=== PATIENT | female | born 1950 | race Caucasian/White ===

== ENCOUNTER → 2020-05-03 11:44 | Outpatient (BNVA) | payer OTHER, SELFPAY | PROVIDERS: PCP Family Medicine; Referring Provider Family Medicine; Visit Provider Nurse Practitioner | DX: K59.04 Chronic idiopathic constipation (principal); K21.9 Gastro-esophageal reflux disease without esophagitis; K75.81 Nonalcoholic steatohepatitis (NASH) | CPT/HCPCS: 99213 ==

== ENCOUNTER 2020-05-11 08:25 | Outpatient (REF) | payer OTHER, SELFPAY ==
--- NOTE | 2020-05-11 09:09 | US_ITS ---
EXAMINATION: US ABDOMEN LIMITED CLINICAL INFORMATION: ALMENDAREZ. COMPARISON: Abdominal ultrasound dated 10/12/2019 and 12/24/2018 TECHNIQUE: Real-time imaging of the right upper quadrant abdominal viscera. FINDINGS: PANCREAS: Normal. LIVER: The liver is normal size, shape and contour. There is mild increased hepatic echogenicity but no focal lesion seen. No intrahepatic ductal dilatation seen. GALLBLADDER: The gallbladder is physiologically distended without evidence of stones, sludge, polyps, wall thickening, or pericholecystic fluid. There is an echogenic area along the anterior gallbladder wall with dirty shadowing, question cholesterolosis. The gallbladder wall measures 0.2 cm thick. COMMON BILE DUCT: Normal in caliber measuring 0.6 cm in diameter. RIGHT KIDNEY: Normal. No hydronephrosis. No renal calculi or focal parenchymal lesions. The kidney measures 11.5 cm in maximum dimension. FREE FLUID: None. IMPRESSION: Mildly echogenic liver without focal lesion. Echogenic dirty shadowing along the anterior gallbladder wall suggestive of cholesterolosis.
[2020-05-11 11:08] LABS: Alanine Aminotransferase 27 U/L (0-31); Albumin Level 4.4 g/dL (3.5-5.0); Alkaline Phosphatase 86 U/L (39-117); Aspartate Amino Transferase 21 U/L (5-31); Bilirubin Direct 0.2 mg/dL (0.0-0.5); Bilirubin Total 0.3 mg/dL (0.0-1.0); Total Protein 7.3 g/dL (6.5-8.0)
[2020-05-13 12:11] LABS: Alpha Fetoprotein 1.5 ng/mL
== END 2020-05-11 08:26 | disposition home or self-care (01) ==
LOC: HO.US 08:25
PROVIDERS: PCP Family Medicine; Visit Provider Nurse Practitioner
DX: K75.81 Nonalcoholic steatohepatitis (NASH) (principal)
CPT/HCPCS: 76705; 80076; 82105

== ENCOUNTER → 2020-07-13 10:01 | Outpatient (BNVA) | payer OTHER, SELFPAY | PROVIDERS: Visit Provider Urology | DX: N39.0 Urinary tract infection, site not specified (principal); R32 Unspecified urinary incontinence | CPT/HCPCS: 51798; 81002; 99212 ==

== ENCOUNTER 2020-08-03 10:51 | Outpatient (REF) | payer OTHER, SELFPAY ==
--- NOTE | 2020-08-03 | MM_ITS ---
EXAMINATION: MM SCREENING DIGITAL BREAST TOMOSYNTHESIS, BILATERAL CLINICAL INFORMATION: Screening. Asymptomatic. The lifetime risk of breast cancer based on the Tyrer-Cuzick Model is 5%. COMPARISON: Mammography: 05/30/2016, 03/15/2015, 11/23/2013 TECHNIQUE: Digital breast tomosynthesis is performed in both the craniocaudal and mediolateral oblique views along with computer-aided detection (CAD). Synthesized 2D images are generated from the tomosynthesis. FINDINGS: The breasts are almost entirely fatty (ACR BI-RADS breast composition Category a). Background stromal markings are stable. There are no significant masses, abnormal calcifications, or other abnormalities. There is an incidental node again seen posterior 9:00 right breast. No significant changes. MM/MM tomosynthesis screening BI IMPRESSION: No mammographic evidence of malignancy. ASSESSMENT: BI-RADS 2: Benign RECOMMENDATION: Routine annual mammography screening. This patient's information was entered into a reminder system with a target due date for their next mammogram.
== END 2020-08-03 10:52 | disposition home or self-care (01) ==
LOC: HO.MAMMO 10:51
PROVIDERS: PCP Family Medicine; Visit Provider Family Medicine
DX: Z12.31 Encounter for screening mammogram for malignant neoplasm of breast (principal)
CPT/HCPCS: 77063; 77067

== ENCOUNTER → 2020-10-04 09:35 | Outpatient (BNVA) | payer OTHER, SELFPAY | PROVIDERS: PCP Family Medicine; Visit Provider Nurse Practitioner | DX: K21.9 Gastro-esophageal reflux disease without esophagitis (principal) | CPT/HCPCS: Q3014 ==

== ENCOUNTER → 2020-11-01 08:59 | Outpatient (BNVA) | payer OTHER, SELFPAY | PROVIDERS: PCP Family Medicine; Visit Provider Nurse Practitioner Family | DX: Z13.89 Encounter for screening for other disorder (principal) | CPT/HCPCS: Q3014 ==

== ENCOUNTER 2021-02-16 17:45 | Emergency (ER) | payer OTHER, SELFPAY ==
[2021-02-16 17:56] VITALS: BP 139/67; PULSE 77; RESP 18; TEMP 36.5; O2SAT 97; BMI 29.2
--- NOTE | 2021-02-16 18:24 | ED.WOUNDLAC ---
HPI - Wound/Laceration General Chief Complaint: Wound/Laceration Stated Complaint: lac Time Seen by Provider: 02/16/21 17:57 Source: patient Mode of arrival: ambulatory Limitations: no limitations History of Present Illness HPI narrative: 70 yo female here with laceration to right index finger after cutting herself accidentally with a knife. tetanus unknown Related Data Home Medications Medication Instructions Recorded Confirmed alcohol swabs pad TOPICAL 07/13/20 11/01/20 amlodipine 10 mg tablet 10 mg PO QAM 07/13/20 11/01/20 aspirin 81 mg tablet,delayed 81 mg PO QAM 07/13/20 11/01/20 release blood sugar diagnostic #10 ea 07/13/20 11/01/20 cholecalciferol (vitamin D3) 25 25 mcg PO QAM 07/13/20 11/01/20 mcg (1,000 unit) tablet ezetimibe 10 mg tablet 10 mg PO BEDTIME 07/13/20 11/01/20 insulin glargine 100 unit/mL (3 16 - 18 unit SUBCUT BEDTIME 07/13/20 11/01/20 mL) subcutaneous pen lancets 33 gauge #100 ea 07/13/20 11/01/20 loratadine 10 mg tablet 10 mg PO DAILY PRN 07/13/20 11/01/20 losartan 50 mg tablet 50 mg PO DAILY 07/13/20 11/01/20 metformin 500 mg tablet,extended 500 mg PO BID 07/13/20 11/01/20 release 24 hr montelukast 10 mg tablet 10 mg PO BEDTIME 07/13/20 11/01/20 pen needle, diabetic 31 gauge x #1200 ea 07/13/20 11/01/2012/04 pentosan polysulfate sodium 100 mg 200 mg PO 07/13/20 11/01/20 capsule rosuvastatin 40 mg tablet 40 mg PO DAILY 07/13/20 11/01/20 trazodone 50 mg tablet 50 mg PO BEDTIME 07/13/20 11/01/20 COVID-19 vacc,mRNA(Moderna)-PF 100 0.5 ml IM Q4W 11/01/20 11/01/20 mcg/0.5 mL IM susp(EUA) (Moderna COVID-19 Vaccine (PF)) Previous Rx's Medication Instructions Recorded nitrofurantoin macrocrystal 100 mg 100 mg PO BEDTIME #30 cap 07/13/20 capsule (Macrodantin) pentosan polysulfate sodium 100 mg 200 mg PO BID 90 Days #360 cap 08/23/20 capsule (Elmiron) famotidine 10 mg tablet (Acid 10 mg PO BID #60 ea 10/04/20 Agri Business Agent (famotidine)) simethicone 180 mg capsule (Gas 180 mg PO .qid. 30 Days #120 cap 10/04/20 Relief (simethicone)) Allergies Allergy/AdvReac Type Severity Reaction Status Date / Time adhesive tape [ADHESIVE TAPE] Allergy Intermediate RASH-LOCALI Verified 07/13/20 10:25 ZED Review of Systems Review of Systems: Yes all other systems are reviewed and are negative Constitutional: Constitutional: Reports no additional constitutional complaints, Denies body ache(s), Denies chills, Denies fever(s), Denies headache(s) and Denies weakness Eyes: Eyes: Reports no additional eye complaints and Denies change in vision ENT: Reports system reviewed and no additional complaints, except as documented, Denies dizziness, Denies headache(s), Denies nasal congestion, Denies nasal discharge and Denies neck pain Cardiovascular: Cardiovascular: Reports no additional cardiovascular complaints, Denies chest pain, Denies leg edema and Denies dyspnea Respiratory: Respiratory: Reports no additional respiratory complaints, Denies cough and Denies dyspnea Gastrointestinal: Gastrointestinal: Reports no additional gastrointestinal complaints, Denies abdominal pain, Denies diarrhea, Denies nausea and Denies vomiting Genitourinary: Genitourinary: Reports no additional female genitourinary complaints and Denies urinary incontinence Musculoskeletal: Musculoskeletal: Reports no additional musculoskeletal complaints, Denies back pain, Denies arthralgias, Denies joint swelling, Denies neck pain, Denies numbness and Denies tingling Integumentary/Breasts: Skin/Breast: Reports system reviewed and no additional complaints, except as docu and Denies rash Neurologic: Reports system reviewed and no additional complaints, except as documented, Denies Abnormal speech present, Denies dizziness, Denies headache(s), Denies numbness, Denies tingling and Denies weakness PMFSH Past Medical History Attestation statement: The following information was validated with the patient. Source: old records reviewed and nursing notes reviewed Medical History Recurrent UTI (urinary tract infection) DILSHAD (stress urinary incontinence, female) Surgical History H/O colonoscopy H/O esophagogastroduodenoscopy History of bladder suspension procedure History of hysterectomy History of tubal ligation S/P CABG x 3 Family History Family History Father Alcohol abuse Cirrhosis Mother Cervical cancer Paternal Grandfather Stomach cancer Social History Social History Household Members: Children Alcohol intake: never Current occupational status: retired Physical Exam Vital Signs: Vital Signs: Last Vital Signs Temp 97.7 F 02/16/21 17:56 Pulse 77 02/16/21 17:56 Resp 18 02/16/21 17:56 BP 139/67 02/16/21 17:56 Pulse Ox 97 02/16/21 17:56 Body Mass Index 29.2 Const: General: cooperative, healthy appearing, comfortable and no acute distress Orientation/consciousness: patient oriented x3 Limitations: no limitations HENMT: Head: Yes normal to inspection Ears: hearing grossly normal bilaterally General nose exam: Normal external nose present Face and sinus: Yes normal facial exam Mouth: Normal oral and palatal mucosa present Throat: Yes posterior oropharynx normal Eyes: General: appearance normal, both eyes and all related structures Pupils: Equal, round and reactive pupils present Neck: Neck: Yes normal visual inspection Chest: Chest palpation & inspection: normal inspection of the chest Resp: Effort & Inspection: normal respiratory effort Auscultation: clear to auscultation bilaterally Cardio: Rate: regular rate Rhythm: regular rhythm Peripheral pulses: Peripheral pulses 2+ throughout GI: Inspection: Yes normal to inspection Palpation (GI): Soft to palpation and nontender Auscultation: normal bowel sounds Back/Spine/Pelvis: Thoracic/Lumbar Spine: thoracic and lumbar spine normal to inspection Skin: General skin exam: no rashes or lesions noted Neuro: General: patient oriented x3, no focal motor deficits and normal sensation to monofilament Cranial nerves: Yes Equal, round and reactive pupils present Cognition (Neuro): normal cognition Speech: No Abnormal speech present Gait exam (Neuro): Normal gait present Motor exam (neuro): 5/5 motor strength present throughout Extrem: Other: 1cm laceration at the mid right index finger over the medial aspect, slowly bleeding. FROM General: Yes normal to inspection Course Course Course Narrative: Laceration to right index finger. See procedure note. Procedures Laceration Laceration 1: Site: hand (right index finger ) Side (If applicable): right Size (cm): 1 Description: linear Depth: simple, single layer Local Anesthetic: lidocaine 2% Pre-repair: wound explored and irrigated extensively Skin layer closed with: vicryl Size (cm): 5-0 Number of sutures: 3 Technique: simple, interrupted Discharge Plan Discharge Clinical Impression: Laceration Patient Disposition: Home, Self-Care Instructions: Finger Laceration (ED) Additional Instructions: Keep covered for 24 hrs then wash area with soap and water daily and apply topical antibiotic ointment sutures out in 7 days Prescriptions: No Action Elmiron 100 mg capsule 200 mg PO BID 90 Days Qty: 360 RF: 2 Moderna COVID-19 Vaccine (EUA) 100 mcg/0.5 mL suspension 0.5 ml IM Q4W RF: 0 cholecalciferol (vitamin D3) 25 mcg (1,000 unit) tablet 25 mcg PO QAM RF: 0 rosuvastatin 40 mg tablet 40 mg PO DAILY RF: 0 (DME) pen needle, diabetic 31 gauge x 5/16 needle See Rx Instructions ea .ROUTE .MEDSUPPLY Qty: 1200 RF: 0 metformin 500 mg tablet extended release 24 hr 500 mg PO BID RF: 0 alcohol swabs Pads, Medicated topical RF: 0 montelukast 10 mg tablet 10 mg PO BEDTIME RF: 0 aspirin 81 mg tablet,delayed release (DR/EC) 81 mg PO QAM RF: 0 trazodone 50 mg tablet 50 mg PO BEDTIME RF: 0 Elmiron 100 mg capsule 200 mg PO RF: 0 losartan 50 mg tablet 50 mg PO DAILY RF: 0 (DME) lancets 33 gauge misc See Rx Instructions ea Not Applicable TID Qty: 100 RF: 0 ezetimibe 10 mg tablet 10 mg PO BEDTIME RF: 0 loratadine 10 mg tablet 10 mg PO DAILY PRNRF: 0 amlodipine 10 mg tablet 10 mg PO QAM RF: 0 (DME) OneTouch Ultra Blue Test Strip Strip See Rx Instructions ea Not Applicable TID Qty: 10 RF: 0 Lantus Solostar U-100 Insulin 100 unit/mL (3 mL) insulin pen 16 - 18 unit subcut BEDTIME RF: 0 nitrofurantoin macrocrystal [Macrodantin] 100 mg capsule 100 mg PO BEDTIME Qty: 30 RF: 6 famotidine [Acid Agri Business Agent (famotidine)] 10 mg tablet 10 mg PO BID Qty: 60 RF: 6 simethicone [Gas Relief (simethicone)] 180 mg capsule 180 mg PO .qid. 30 Days Qty: 120 RF: 6 Referrals: Kera Maria MD [Primary Care Provider] - 2 days
[2021-02-16] MEDS: Lidocaine HCl 2 % MPF 5 ML VIAL SUBCUT (18:49)
[2021-02-16] MEDS: Diphth,Pertus(ACell),Tet Adult 0.5 ML SYRINGE IM (18:50)
== END 2021-02-16 19:05 | disposition home or self-care (01) ==
LOC: HO.ED 18:41
PROVIDERS: Emergency Provider Emergency Medicine Emergency Medical Services; PCP Family Medicine
DX: S61.210A Laceration without foreign body of right index finger without damage to nail, initial encounter (principal); M79.644 Pain in right finger(s); I25.10 Atherosclerotic heart disease of native coronary artery without angina pectoris; W26.0XXA Contact with knife, initial encounter; Y93.9 Activity, unspecified; Y92.009 Unspecified place in unspecified non-institutional (private) residence as the place of occurrence of the external cause; Y99.9 Unspecified external cause status; Z79.82 Long term (current) use of aspirin; Z79.899 Other long term (current) drug therapy
CPT/HCPCS: 12001; 90471; 90715; 96372; 99283; 99284

== ENCOUNTER 2021-03-13 10:47 | Outpatient (REF) | payer OTHER, SELFPAY ==
--- NOTE | ~2021-03-13 | XR_ITS ---
EXAMINATION: XR HAND, RIGHT CLINICAL INFORMATION: Pain right fingers. Stiffness right hand. COMPARISON: None TECHNIQUE: PA, lateral, and oblique views of the right hand. FINDINGS: There is no acute or healing fracture, dislocation, or destructive process. The ulnar variance is neutral. The carpus shows no narrowing or erosive change or definite chondrocalcinosis. The MCP and PIP joints are unremarkable. There are osteoarthritic changes involving the fifth finger DIP joint along with marginal osteophytes. Mild narrowing of the second third fourth finger DIP joints is seen without subchondral sclerosis or significant spurring. XR/XR hand RT min 3V IMPRESSION: 1. Osteoarthritis fifth finger DIP joint. 2. Borderline/mild narrowing DIP joints second, third, fourth finger. 3. No erosive changes.
--- NOTE | ~2021-03-13 | XR_ITS ---
EXAMINATION: XR KNEE, RIGHT CLINICAL INFORMATION: Right knee pain COMPARISON: Radiographs right knee 02/24/2018. TECHNIQUE: 4 views of the right knee are obtained including an AP view with weightbearing. FINDINGS: There is no fracture or dislocation or destructive process. No suprapatellar effusion. Hoffa's fat pad appears normal. There is no significant joint narrowing. No subchondral sclerosis or erosive change. Axial view patella shows no lateralization or tilting. There are some surgical clips again noted posterior medial soft tissues just below knee joint. XR/XR knee RT 4V IMPRESSION: No significant joint narrowing. No erosive change or effusion.
[2021-03-13 12:31] LABS: Alanine Aminotransferase 35 U/L (0-31); Albumin Level 4.4 g/dL (3.5-5.0); Alkaline Phosphatase 90 U/L (39-117); Aspartate Amino Transferase 21 U/L (5-31); Bilirubin Direct 0.2 mg/dL (0.0-0.5); Bilirubin Total 0.3 mg/dL (0.0-1.0); Total Protein 7.3 g/dL (6.5-8.0)
[2021-03-15 11:48] LABS: Alpha Fetoprotein 1.3 ng/mL
== END 2021-03-13 10:48 | disposition home or self-care (01) ==
LOC: HO.XRAY 10:47
PROVIDERS: Absent Provider Nurse Practitioner; PCP Family Medicine; Visit Provider Family Medicine
DX: K75.81 Nonalcoholic steatohepatitis (NASH) (principal); M25.561 Pain in right knee; M25.641 Stiffness of right hand, not elsewhere classified; M79.644 Pain in right finger(s)
CPT/HCPCS: 36415; 73130; 73564; 80076; 82105

== ENCOUNTER → 2021-03-14 11:50 | Outpatient (BNVA) | payer OTHER, SELFPAY | PROVIDERS: PCP Family Medicine; Visit Provider Nurse Practitioner Family | DX: G47.33 Obstructive sleep apnea (adult) (pediatric) (principal) | CPT/HCPCS: Q3014 ==

== ENCOUNTER → 2021-04-19 08:47 | Outpatient (BNVA) | payer OTHER, SELFPAY | PROVIDERS: Visit Provider Physician Assistant | DX: M19.041 Primary osteoarthritis, right hand (principal); M17.11 Unilateral primary osteoarthritis, right knee | CPT/HCPCS: 20610; 99202 ==

== ENCOUNTER 2021-04-20 08:15 | Outpatient (REF) | payer OTHER, SELFPAY ==
--- NOTE | ~2021-04-20 | US_ITS ---
EXAMINATION: US ABDOMEN COMPLETE CLINICAL INFORMATION: Nonalcoholic steatohepatitis. COMPARISON: Ultrasound abdomen limited 05/11/2020. Ultrasound abdomen complete 10/12/2019. CT abdomen and pelvis 11/10/2018. TECHNIQUE: Real-time imaging of the abdominal viscera. FINDINGS: PANCREAS: Normal. The visualized pancreatic head and body are normal in appearance. The remainder of the pancreas is obscured from visualization by the overlying bowel gas. AORTA: The visualized proximal, mid and distal segments are normal in caliber. INFERIOR VENA CAVA: Visualized portions are normal. LIVER: There is diffuse increased liver parenchymal echogenicity. No focal hepatic mass is seen. The liver is normal in size and contour. No biliary ductal dilatation. GALLBLADDER: Normal. The gallbladder is physiologically distended without evidence of stones, sludge, polyps, wall thickening or pericholecystic fluid. COMMON BILE DUCT: Normal in caliber measuring 0.5 cm in diameter. RIGHT KIDNEY: Normal. No hydronephrosis. No renal calculi or focal parenchymal lesions. The kidney measures 9.8 cm in maximum dimension. LEFT KIDNEY: Normal. No hydronephrosis. No renal calculi or focal parenchymal lesions. The kidney measures 10.5 cm in maximum dimension. SPLEEN: Normal. The spleen measures 9.7 cm in maximum dimension. FREE FLUID: None. US/US abdomen complete IMPRESSION: 1. There is generalized increase in hepatic echotexture, consistent with fatty infiltration or hepatocellular disease. Please correlate clinically. Provided history of nonalcoholic steatosis hepatitis noted. No focal hepatic mass or intrahepatic biliary dilatation is seen. 2. Otherwise, unremarkable examination, with imaging of the pancreas and mid abdominal aorta technically limited.
== END 2021-04-20 08:16 | disposition home or self-care (01) ==
LOC: HO.US 08:15
PROVIDERS: PCP Family Medicine; Visit Provider Nurse Practitioner
DX: K75.81 Nonalcoholic steatohepatitis (NASH) (principal)
CPT/HCPCS: 76700

== ENCOUNTER → 2021-05-03 11:05 | Outpatient (BNVA) | payer OTHER, SELFPAY | PROVIDERS: PCP Family Medicine ==

== ENCOUNTER → 2021-05-15 10:47 | Outpatient (BNVA) | payer OTHER, SELFPAY | PROVIDERS: PCP Family Medicine | DX: Z13.89 Encounter for screening for other disorder (principal) | CPT/HCPCS: Q3014 ==

== ENCOUNTER → 2021-05-16 08:52 | Outpatient (BNVA) | payer OTHER, SELFPAY | PROVIDERS: PCP Family Medicine; Visit Provider Nurse Practitioner | CPT/HCPCS: Q3014 ==

== ENCOUNTER → 2021-06-06 10:01 | Outpatient (BNVA) | payer OTHER, SELFPAY | PROVIDERS: PCP Family Medicine; Referring Provider Family Medicine; Visit Provider Nurse Practitioner Family | CPT/HCPCS: 99212 ==

== ENCOUNTER 2021-09-22 09:02 | Outpatient (REF) | payer OTHER, SELFPAY ==
--- NOTE | 2021-09-22 | PFT_ITS ---
FLOWS: FEV1 83% of predicted at 1.91 L. FVC 71% of predicted at 2.08 L. FEV1 to FVC ratio of 0.092. No bronchodilator response. LUNG VOLUMES: Total lung capacity 71% of predicted at 3.62 L. Residual volume 60% of predicted at 1.33 L. Slow vital capacity 80% of predicted at 2.29 L. Expiratory reserve volume 71% of predicted at 0.49 L. Diffusion capacity is moderately decreased, diffusion capacity adjust to being mildly decreased after correction for alveolar ventilation. IMPRESSION: Mild restrictive ventilatory defect with no bronchodilator response. Decreased diffusion capacity together with underlying restrictive ventilatory defect suggest underlying pulmonary parenchymal or vascular disease. Clinical correlation is advised. MD MASSIEL Vann/MODL / [id number]
== END 2021-09-22 09:03 | disposition home or self-care (01) ==
LOC: HO.RESP 09:02
PROVIDERS: Visit Provider Family Medicine
DX: G47.33 Obstructive sleep apnea (adult) (pediatric) (principal); R06.2 Wheezing
CPT/HCPCS: 94060; 94727; 94729

== ENCOUNTER → 2021-10-17 13:40 | Outpatient (BNVA) | payer OTHER, SELFPAY | PROVIDERS: PCP Family Medicine; Visit Provider Nurse Practitioner Family | DX: G43.909 Migraine, unspecified, not intractable, without status migrainosus (principal); G47.33 Obstructive sleep apnea (adult) (pediatric) | CPT/HCPCS: 99212 ==

== ENCOUNTER 2021-11-14 09:10 | Outpatient (REF) | payer OTHER, SELFPAY ==
[2021-11-14 10:52] LABS: Alanine Aminotransferase 40 U/L (0-31); Albumin Level 4.2 g/dL (3.5-5.0); Alkaline Phosphatase 80 U/L (39-117); Anion Gap 11 (12-20); Aspartate Amino Transferase 28 U/L (5-31); Bilirubin Total 0.3 mg/dL (0.0-1.0); Blood Urea Nitrogen 11 mg/dL (9-16); Calcium 9.9 mg/dL (8.4-10.2); Carbon Dioxide 27 mmol/L (22-29); Chloride 106 mmol/L (96-108); Estimated Glomerular Filt Rate > 60; Glucose Random 193 mg/dL (60-115); Potassium 4.5 mmol/L (3.3-5.1); Sodium 139 mmol/L (135-145); Total Protein 7.3 g/dL (6.5-8.0)
[2021-11-16 12:47] LABS: Alpha Fetoprotein 1.2 ng/mL
== END 2021-11-14 09:11 | disposition home or self-care (01) ==
LOC: HO.LAB 09:10
PROVIDERS: PCP Family Medicine; Referring Provider Family Medicine; Visit Provider Nurse Practitioner
DX: K75.81 Nonalcoholic steatohepatitis (NASH) (principal); K21.9 Gastro-esophageal reflux disease without esophagitis; Z88.8 Allergy status to other drugs, medicaments and biological substances; Z91.040 Latex allergy status; R14.0 Abdominal distension (gaseous)
CPT/HCPCS: 36415; 80053; 82105; 99212

== ENCOUNTER 2021-12-15 15:58 | Outpatient (REF) | payer OTHER, SELFPAY ==
--- NOTE | ~2021-12-15 | US_ITS ---
EXAMINATION: US ABDOMEN LIMITED CLINICAL INFORMATION: Nonalcoholic steatohepatitis (ALMENDAREZ). COMPARISON: Ultrasound abdomen complete 04/20/2021. Ultrasound abdomen limited 05/11/2020. CT abdomen and pelvis without contrast 11/10/2018. TECHNIQUE: Real-time imaging of the right upper quadrant abdominal viscera. FINDINGS: PANCREAS: Visualized head and body of the pancreas is homogeneous in echotexture. The tail and rest of the body pancreas is not visualized. LIVER: The right hepatic lobe measures 17.2 cm in length and slightly enlarged in size. The liver contour is normal. The liver is mildly echogenic. There is no intrahepatic biliary duct dilatation seen. GALLBLADDER: The gallbladder wall thickness is 0.19 cm. The gallbladder is physiologically distended without evidence of stones, sludge, polyps, wall thickening or pericholecystic fluid. COMMON BILE DUCT: Normal in caliber measuring 0.6 cm in diameter. RIGHT KIDNEY: Normal. No hydronephrosis. No renal calculi or focal parenchymal lesions. The kidney measures 11.4 cm in maximum dimension. FREE FLUID: None. US/US abdomen limited IMPRESSION: Mild right hepatomegaly with mild hepatic steatosis. No focal lesion seen. Visualized portions of the pancreas appears unremarkable.
== END 2021-12-15 15:59 | disposition home or self-care (01) ==
LOC: HO.US 15:58
PROVIDERS: Visit Provider Nurse Practitioner
DX: K75.81 Nonalcoholic steatohepatitis (NASH) (principal)
CPT/HCPCS: 76705

== ENCOUNTER → 2022-02-08 15:07 | Outpatient (BNVA) | payer OTHER, SELFPAY | PROVIDERS: PCP Family Medicine | DX: N39.0 Urinary tract infection, site not specified (principal) | CPT/HCPCS: Q3014 ==

== ENCOUNTER → 2022-07-06 08:58 | Outpatient (REF) | payer OTHER, SELFPAY ==
--- NOTE | ~2022-07-06 | NM_ITS ---
EXERCISE MYOCARDIAL PERFUSION STUDY INDICATION: Coronary disease, assess for ischemia TECHNIQUE: The patient was brought in for an exercise perfusion study on 07/06/2022. Patient performed exercise as per Jeremie protocol and was injected 25 mCi of sestamibi once target heart rate was achieved. Images were obtained using the SPECT gamma camera interlaced with the gating device. Images were obtained in supine position. Resting perfusion study was performed on 07/09/2022. Patient was administered 25 mCi of sestamibi intravenously at rest. Images were then obtained in supine position. Images were processed with the software and compared side to side in short axis, horizontal long axis and vertical long axis views. Total DLP 95mGy-cm. FINDINGS: Raw images were reviewed. The stress perfusion study showed diminished tracer uptake in the distal part of lateral wall. With CT attenuation correction, there is improvement suggestive of soft tissue attenuation artifact. The gated study shows normal LV systolic function with calculated LVEF of 65%. LV cavity is normal in size. The gated study shows normal wall thickening and contraction of segments. Resting study shows no significant perfusion abnormality. Gating at rest reveals normal wall motion with ejection fraction at 69%. The findings are consistent with reversible distal lateral defect likely from soft tissue attenuation artifact. NM/NM pan perf SPECT rest & str IMPRESSION: 1. Myocardial perfusion imaging study shows no clear evidence of any ischemia or infarction. Likely normal perfusion. 2. Gated LVEF is 65% during stress and 69% during rest. 3. Transient ischemic dilatation not present. EKG component of the test reported separately.
--- NOTE | 2022-07-06 09:01 | CA_ITS ---
Acquisition Time: 2022-07-06 09:11:33 Total Exercise Time: 00:05:00 Test Indications: CP Medications: SEE CHART Protocol: BHARGAV Max HR: 144 BPM 96% of Pred: 149 BPM Max BP: 178/042 mmHG Max Work Load: 5.6 METS Exercise stress test with exercise 5 min of Bhargav protocol ( speed reduced to 2.2 MPH, then 2 MPH in stage 2) achieving 95% MPHR, with fatigue and need to stop, without anginal symptoms, with isolated PACs, with normotensive response to exercise, with borderline EKG changes suggesting possible ischemia: slgith downsloping ST inferior, V4-V6. Nuclear images pending. Test reviewed with Dr Workman Referred By: Ronan Romo Overread By: JARRETT GARCIA
== END ==
LOC: HO.CARD 08:58
PROVIDERS: PCP Family Medicine; Visit Provider Internal Medicine Cardiovascular Disease
DX: I25.2 Old myocardial infarction (principal)
CPT/HCPCS: 78452; 93017; A9500; J0280; J2785

== ENCOUNTER → 2022-07-31 11:39 | Outpatient (BNVA) | payer OTHER, SELFPAY | PROVIDERS: PCP Family Medicine; Visit Provider Nurse Practitioner | DX: K75.81 Nonalcoholic steatohepatitis (NASH) (principal); K59.04 Chronic idiopathic constipation; K21.9 Gastro-esophageal reflux disease without esophagitis; R14.0 Abdominal distension (gaseous); D12.6 Benign neoplasm of colon, unspecified; E13.9 Other specified diabetes mellitus without complications | CPT/HCPCS: 99212 ==

== ENCOUNTER 2022-08-06 11:22 | Outpatient (REF) | payer OTHER, SELFPAY ==
--- NOTE | ~2022-08-06 | MM_ITS ---
EXAMINATION: MM SCREENING DIGITAL BREAST TOMOSYNTHESIS, BILATERAL CLINICAL INFORMATION: Screening. Asymptomatic. The lifetime risk of breast cancer based on the Tyrer-Cuzick Model is 2%. COMPARISON: Mammography: 08/03/2020, 05/30/2016, 03/15/2015 TECHNIQUE: Digital breast tomosynthesis is performed in both the craniocaudal and mediolateral oblique views along with computer-aided detection (CAD). Synthesized 2D images are generated from the tomosynthesis. Additional right MLO view is provided. FINDINGS: The breasts are almost entirely fatty (ACR BI-RADS breast composition Category a). There are no significant masses, abnormal calcifications, or other abnormalities. Background stromal markings are similar to prior studies. No developing density or architectural abnormality. Low right axillary node posterior 9:00 position stable. The axilla and skin contours are unremarkable. MM/MM tomosynthesis screening BI IMPRESSION: No mammographic evidence of malignancy. ASSESSMENT: BI-RADS 2: Benign RECOMMENDATION: Routine annual mammography screening. This patient's information was entered into a reminder system with a target due date for their next mammogram.
== END 2022-08-06 11:23 | disposition home or self-care (01) ==
LOC: HO.MAMMO 11:22
PROVIDERS: PCP Family Medicine; Visit Provider Family Medicine
DX: Z12.31 Encounter for screening mammogram for malignant neoplasm of breast (principal)
CPT/HCPCS: 77063; 77067

== ENCOUNTER → 2022-09-17 13:26 | Outpatient (BNVA) | payer OTHER, SELFPAY | PROVIDERS: PCP Family Medicine; Visit Provider Nurse Practitioner Family | DX: N39.0 Urinary tract infection, site not specified (principal); N39.3 Stress incontinence (female) (male); Z79.82 Long term (current) use of aspirin; Z98.890 Other specified postprocedural states; Z79.899 Other long term (current) drug therapy | CPT/HCPCS: 51798; 99212 ==

== ENCOUNTER 2022-10-19 13:20 | Outpatient (REF) | payer OTHER, SELFPAY ==
--- NOTE | ~2022-10-19 | XR_ITS ---
EXAMINATION: XR CHEST CLINICAL INFORMATION: Coronary artery disease COMPARISON: None available. TECHNIQUE: 2 views of the chest were obtained. FINDINGS: The lungs are well-expanded and clear. The heart size and pulmonary vascularity is normal. There is mild spondylosis mid and distal dorsal spine. There are median sternotomy sutures and mediastinal robson from previous intervention. No gross bony abnormality. XR/XR chest 2V IMPRESSION: Unremarkable chest exam.
== END 2022-10-19 13:21 | disposition home or self-care (01) ==
LOC: HO.XRAY 13:20
PROVIDERS: PCP Family Medicine; Visit Provider Hospitalist
DX: J98.4 Other disorders of lung (principal); R06.00 Dyspnea, unspecified
CPT/HCPCS: 71046; 99202

== ENCOUNTER 2022-11-14 14:10 | Outpatient (REF) | payer OTHER, SELFPAY ==
--- NOTE | ~2022-11-14 | US_ITS ---
EXAMINATION: US RETROPERITONEAL COMPLETE (RENAL) CLINICAL INFORMATION: Urinary tract infection, site not specified. COMPARISON: Ultrasound abdomen limited 12/15/2021 and Ultrasound abdomen complete 04/20/2021. CT abdomen and pelvis 11/10/2018. TECHNIQUE: Real-time imaging of the kidneys and bladder. FINDINGS: RIGHT KIDNEY: 9.5 x 4.6 x 5.5 cm (SAG x AP x TRV). The kidney is normal in size, contour, and echogenicity. Renal cortical thickness is normal. No calculi or focal parenchymal lesions. No hydronephrosis. LEFT KIDNEY: 10.3 x 6.0 x 4.7 cm (SAG x AP x TRV). The kidney is normal in size, contour, and echogenicity. Renal cortical thickness is normal. No calculi or focal parenchymal lesions. No hydronephrosis. BLADDER: Well distended and normal. Bilateral ureteral jets are demonstrated. Prevoid bladder volume is 445.7 mL. Postvoid bladder volume is 124.2 mL. US/US retroperitoneal comp IMPRESSION: Normal renal ultrasound. Large 124 mL post void bladder residual.
== END 2022-11-14 14:11 | disposition home or self-care (01) ==
LOC: HO.US 14:10
PROVIDERS: Visit Provider Nurse Practitioner Family
DX: N39.0 Urinary tract infection, site not specified (principal)
CPT/HCPCS: 76770

== ENCOUNTER → 2022-12-10 10:27 | Outpatient (BNVA) | payer OTHER, SELFPAY | PROVIDERS: PCP Family Medicine; Visit Provider Nurse Practitioner Family | DX: N39.0 Urinary tract infection, site not specified (principal) | CPT/HCPCS: 51798; 99212 ==

== ENCOUNTER 2022-12-25 10:52 | Outpatient (REF) | payer OTHER, SELFPAY ==
--- NOTE | 2022-12-25 11:39 | PFT_ITS ---
FLOWS: 1. FEV1 83% of predicted at 1.91 L. 2. FVC 71% of predicted at 2.08 L. 3. FEV1 to FVC ratio of 0.92. 4. No bronchodilator response. LUNG VOLUMES: 1. Total lung capacity 71% of predicated at 3.62 L. 2. Residual volume 60% of predicted at 1.33 L. 3. Slow vital capacity 80% of predicted at 2.29 L. 4. Expiratory reserve volume 71% of predicted at 0.49 L. 5. Diffusion capacity is moderately decreased, diffusion capacity adjusted, being mildly decreased after correction for alveolar ventilation. IMPRESSION: Mild restrictive ventilatory defect with no bronchodilator response. Combination of restrictive ventilatory defect with decreased diffusion capacity, suggests underlying primary parenchymal disease. Clinical correlation is advised. Clint Vaughn MD AP/MODL / [id number]
== END 2022-12-25 10:53 | disposition home or self-care (01) ==
LOC: HO.RESP 10:52
PROVIDERS: PCP Family Medicine; Visit Provider Hospitalist
DX: J98.4 Other disorders of lung (principal)
CPT/HCPCS: 94060; 94727; 94729

== ENCOUNTER → 2023-01-21 13:13 | Outpatient (BNVA) | payer OTHER, SELFPAY | PROVIDERS: PCP Family Medicine; Visit Provider Hospitalist | DX: J98.4 Other disorders of lung (principal) ==

== ENCOUNTER 2023-01-26 10:07 | Outpatient (REF) | payer OTHER, SELFPAY ==
[2023-01-26 10:23] LABS: MANUAL DIFF FLAG NO
[2023-01-26 11:28] LABS: Basophils Percent Auto 0.7 % (0-2); Eosinophils Absolute Auto 0.2 X10*3/uL (0.0-0.4); Hematocrit 36.2 % (37.0-47.0); Imm Gran Abs Auto 0.01 X10*3/uL (0.00-0.03); Imm Gran Pct Auto 0.2 % (0.0-0.4); Lymphocytes Absolute Auto 2.4 X10*3/uL (1.2-4.9); Lymphocytes Percent Auto 38.9 % (20-40); Mean Corpuscular HGB Conc 33.1 g/dl (31.0-35.0); Mean Corpuscular Hemoglobin 28.4 pg (27.0-33.0); Mean Corpuscular Volume 85.8 fL (80.0-98.0); Mean Platelet Volume 10.3 fL (9.4-12.3); Monocytes Absolute Auto 0.5 X10*3/uL (0.1-1.2); Monocytes Percent Auto 7.4 % (2-11); Neutrophils Percent Auto 49.8 % (45-73); Platelet Count 208 X10*3/uL (160-400); Red Blood Count 4.22 X10*6/uL (4.20-5.50); Red Cell Distribution Width 14.3 % (11.0-16.0); White Blood Count 6.1 X10*3/uL (4.8-10.8)
[2023-01-26 11:40] LABS: Estimated Average Glucose 171 mg/dL; Hemoglobin A1c % 7.6 %
[2023-01-26 11:56] LABS: Alanine Aminotransferase 44 U/L (0-31); Albumin Level 4.2 g/dL (3.5-5.0); Alkaline Phosphatase 72 U/L (39-117); Anion Gap 16 (12-20); Aspartate Amino Transferase 29 U/L (5-31); Bilirubin Total 0.6 mg/dL (0.0-1.0); Blood Urea Nitrogen 15 mg/dL (9-16); Calcium 10.1 mg/dL (8.4-10.2); Carbon Dioxide 20 mmol/L (22-29); Chloride 107 mmol/L (96-108); Estimated Glomerular Filt Rate > 60; Glucose Random 147 mg/dL (60-115); Potassium 4.3 mmol/L (3.3-5.1); Sodium 139 mmol/L (135-145); Total Protein 7.5 g/dL (6.5-8.0)
== END 2023-01-26 10:08 | disposition home or self-care (01) ==
LOC: HO.LAB 10:07
PROVIDERS: PCP Family Medicine; Visit Provider Nurse Practitioner
DX: E13.9 Other specified diabetes mellitus without complications (principal); K75.81 Nonalcoholic steatohepatitis (NASH); K21.9 Gastro-esophageal reflux disease without esophagitis
CPT/HCPCS: 36415; 80053; 82105; 83036; 85025

== ENCOUNTER 2023-01-29 10:27 | Outpatient (AMB) | payer OTHER, SELFPAY ==
--- NOTE | 2023-01-29 10:28 | A.OFFVIS_ITS ---
Intake Vital Signs 01/29/23 10:40 Height 5 ft 4 in Weight 165 lb 12.602 oz BMI 28.5 BP 139/65 Blood Pressure Location Lt brachial Position Sitting Pulse 66 Intake Visit Reasons: 6 months follow up Intake Note: Sofía presents in office as a est.patient for a 6months PT CC: pt reports having no concerns pt denies any other GI Issues Client Relations Representative Required: Yes Client Relations Representative Language: Surinamese Accompanied by: Self / Same As Patient Allergies adhesive tape [ADHESIVE TAPE] Allergy (Intermediate, Verified 01/29/23 10:42) RASH-LOCALIZED latex Allergy (Verified 01/29/23 10:42) Rash HPI 6 months follow up HPI Details Assessment & Plan (1) GERD (gastroesophageal reflux disease): ?Code(s): K21.9 - Gastro-esophageal reflux disease without esophagitis ?Plan: Surinamese #[id number], Vivian. She continues to do well on her GI regimen. I advise her we are overdue for labs/US for her ALMENDAREZ and she is agreeable to getting this going today. She has no CIC and is moving her bowels well. No other health concerns to report. ROV 6 mos. (2) ALMENDAREZ (nonalcoholic steatohepatitis): ?Comment: ?LABS: 09/2019 AST/ALT 27/36 with the remainder normal, autoimmune workup is negative, ferritin is normal at 32, ? * ? US ABD 09/2019 ? IMPRESSION: ? Echogenic liver probably representing fatty infiltration. ?Code(s): K75.81 - Nonalcoholic steatohepatitis (ALMENDAREZ) (3) Chronic idiopathic constipation: ?Code(s): K59.04 - Chronic idiopathic constipation (4) Abdominal bloating: ?Code(s): R14.0 - Abdominal distension (gaseous) ? ? ? Orders: Orders Alpha FetoproteinA Today K75.81 - Nonalcoho lic steatohepatiti s (ALMENDAREZ) ? Comprehensive Met. Panel Today K75.81 - Nonalcoho lic steatohepatiti s (ALMENDAREZ) ? US abdomen limited Today K75.81 - Nonalcoho lic steatohepatiti s (ALMENDAREZ) ? LABS: Laboratory Tests 01/26/23 01/26/23 01/26/23 10:20 10:20 10:20 WBC 6.1 Hgb 12.0 Hct 36.2 L MCV 85.8 MCH 28.4 Estimated GFR > 60 Hemoglobin A1c % 7.6 Total Bilirubin 0.6 AST 29 ALT 44 H Alkaline Phosphata se 72 Alpha Fetoprotein 01/26/23 10:20 WBC Hgb Hct MCV MCH Estimated GFR Hemoglobin A1c % Total Bilirubin AST ALT Alkaline Phosphata se Alpha Fetoprotein 1.2 ULTRASOUND OF THE ABDOMEN 12/19/21? FINDINGS: PANCREAS: Visualized head and body of the pancreas is homogeneous in echotexture. The tail and rest of the body pancreas is not visualized. LIVER: The right hepatic lobe measures 17.2 cm in length and slightly enlarged in size. The liver contour is normal. The liver is mildly echogenic. There is no intrahepatic biliary duct dilatation seen. GALLBLADDER: The gallbladder wall thickness is 0.19 cm. The gallbladder is physiologically distended without evidence of stones, sludge, polyps, wall thickening or pericholecystic fluid. COMMON BILE DUCT: Normal in caliber measuring 0.6 cm in diameter. RIGHT KIDNEY: Normal. No hydronephrosis. No renal calculi or focal parenchymal lesions. The kidney measures 11.4 cm in maximum dimension. FREE FLUID: None. US/US abdomen limited IMPRESSION: Mild right hepatomegaly with mild hepatic steatosis. No focal lesion seen. Visualized portions of the pancreas appears unremarkable. ? TODAY'S VISIT Iranian # Janny Dejesus We review her ultrasound and labs and her fatty liver appears to be stable. I continue to educate her that weight control glucose control and avoidance of alcohol on the 3 most important factors to controlling her fatty liver and keeping her liver healthy. She continues on her famotidine 10mg bid and her simethicone. She has been moving her bowels well w/o medication. ROV 6 mos. [facility] Medical History Chronic restrictive lung disease Dyspnea Recurrent UTI (urinary tract infection) DILSHAD (stress urinary incontinence, female) Surgical History H/O colonoscopy H/O esophagogastroduodenoscopy History of bladder suspension procedure History of hysterectomy History of tubal ligation S/P CABG x 3 Family History Father Alcohol abuse Cirrhosis Mother Cervical cancer Paternal Grandfather Stomach cancer Social History Household Members: Children Alcohol intake: never Patient Tobacco Use Status: Never used Tobacco Current occupational status: retired Current occupation: lt handed Review of Systems Const Denies fatigue, Denies fever(s), Denies night sweats, Denies poor appetite and Denies weight loss ENT Reports Normal hearing present, Denies dental pain, Denies dysphagia, Denies hearing loss, Denies mouth pain, Denies odynophagia, Denies throat swelling, Denies tongue swelling and Reports other (Dentition adequate) Card Reports no additional complaints Resp Reports no additional complaints GI Denies abdominal pain, Denies melena, Denies bloating, Denies hematochezia, Reports constipation, Denies GI cramping, Denies dysphagia, Denies excessive flatus, Denies early satiety, Reports heartburn, Denies diarrhea, Denies nausea, Denies odynophagia, Denies vomiting and Denies hematemesis Skin/Breast Denies pruritus, Denies lesions, Denies rash and Denies jaundice Neuro Reports Normal hearing present and Denies Abnormal speech present Endo Denies fatigue Aller/Immun Denies throat swelling and Denies tongue swelling Physical Exam Vital Signs: Last Vital Signs Pulse 66 01/29/23 10:40 BP 139/65 01/29/23 10:40 BMI result Body Mass Index 28.5 Const General: cooperative, no acute distress, well developed and well groomed Nutritional Appearance: average body habitus and well nourished Orientation/consciousness: oriented to person, oriented to place and oriented to time Limitations: language barrier HEENT Head: Yes normocephalic and Yes atraumatic Eyes General: appearance normal, both eyes and all related structures Pupils: Equal, round and reactive pupils present Neck Neck: Yes normal visual inspection and Yes no lymphadenopathy Thyroid: Thyroid normal Resp Effort & Inspection: normal respiratory effort and able to speak in complete sentences Auscultation: clear to auscultation bilaterally Cardio Rate: regular rate Rhythm: regular rhythm Heart sounds: Normal, physiologic split S2 sound present Peripheral pulses: radial pulses present and posterior tibial pulses present GI Inspection: No distended, No Abdominal panniculus present and Yes obesity Palpation (GI): Soft to palpation, nontender, no guarding, not rigid and No hepatosplenomegaly present Percussion: Yes normal to percussion Auscultation: normal bowel sounds Rectal Exam - Female: deferred Skin General skin exam: no rashes or lesions noted, turgor normal, skin not dry, no jaundice, No spider nevi and no striae Rashes: no rashes Nails: normal Neuro General: oriented to person, oriented to place and oriented to time Cranial nerves: Yes Equal, round and reactive pupils present and Yes Normal hearing present Speech: No Abnormal speech present Extrem General: Yes normal to inspection, No clubbing, No cyanosis and No edema Psych Appearance: grossly normal and well kempt Mental Status: mental status grossly normal Speech and movement: Normal speech and movement present Affect: normal affect Attitude: cooperative Thought process: Normal thought process present and not confabulating Thought content: Normal thought content present Insight: Limited insight present (Psych) Judgement: Limited judgement present (Psych) Results Reviewed Results Reviewed: 01/26/23 01/26/23 01/26/23 10:20 10:20 10:20 WBC 6.1 Hgb 12.0 Hct 36.2 L MCV 85.8 MCH 28.4 Estimated GFR > 60 Hemoglobin A1c % 7.6 Total Bilirubin 0.6 AST 29 ALT 44 H Alkaline Phosphatase 72 Alpha Fetoprotein 01/26/23 10:20 WBC Hgb Hct MCV MCH Estimated GFR Hemoglobin A1c % Total Bilirubin AST ALT Alkaline Phosphatase Alpha Fetoprotein 1.2 ULTRASOUND OF THE ABDOMEN 12/19/21? FINDINGS: PANCREAS: Visualized head and body of the pancreas is homogeneous in echotexture. The tail and rest of the body pancreas is not visualized. LIVER: The right hepatic lobe measures 17.2 cm in length and slightly enlarged in size. The liver contour is normal. The liver is mildly echogenic. There is no intrahepatic biliary duct dilatation seen. GALLBLADDER: The gallbladder wall thickness is 0.19 cm. The gallbladder is physiologically distended without evidence of stones, sludge, polyps, wall thickening or pericholecystic fluid. COMMON BILE DUCT: Normal in caliber measuring 0.6 cm in diameter. RIGHT KIDNEY: Normal. No hydronephrosis. No renal calculi or focal parenchymal lesions. The kidney measures 11.4 cm in maximum dimension. FREE FLUID: None. US/US abdomen limited IMPRESSION: Mild right hepatomegaly with mild hepatic steatosis. No focal lesion seen. Visualized portions of the pancreas appears unremarkable. ? Assessment & Plan Assessment & Plan (1) GERD (gastroesophageal reflux disease): Code(s): K21.9 - Gastro-esophageal reflux disease without esophagitis Plan: Iranian # Janny Live We review her ultrasound and labs and her fatty liver appears to be stable. I continue to educate her that weight control glucose control and avoidance of alcohol on the 3 most important factors to controlling her fatty liver and keeping her liver healthy. She continues on her famotidine 10mg bid and her simethicone. She has been moving her bowels well w/o medication. ROV 6 mos (2) ALMENDAREZ (nonalcoholic steatohepatitis): Comment: BASELINE LABS: 09/2019 AST/ALT 27/36 with the remainder normal, autoimmune workup is negative, ferritin is normal at 32 02/03/19. JUAN Screen Negative Anti-Mitochondrial Ab Negative Anti-Smooth Muscle Ab <20 Hep Bs Antigen NEGATIVE Hepatitis C Ab (EIA) NONREACTIVE HIV 1&2 Antigen & Ab NONREACTIVE CURRENT LABS 01/26/23. Hemoglobin A1c % 7.6 Total Bilirubin 0.6 AST 29 ALT 44 H Alkaline Phosphatase 72 Alpha Fetoprotein 1.2 ULTRASOUND OF THE ABDOMEN 12/19/21? FINDINGS: PANCREAS: Visualized head and body of the pancreas is homogeneous in echotexture. The tail and rest of the body pancreas is not visualized. LIVER: The right hepatic lobe measures 17.2 cm in length and slightly enlarged in size. The liver contour is normal. The liver is mildly echogenic. There is no intrahepatic biliary duct dilatation seen. GALLBLADDER: The gallbladder wall thickness is 0.19 cm. The gallbladder is physiologically distended without evidence of stones, sludge, polyps, wall thickening or pericholecystic fluid. COMMON BILE DUCT: Normal in caliber measuring 0.6 cm in diameter. RIGHT KIDNEY: Normal. No hydronephrosis. No renal calculi or focal parenchymal lesions. The kidney measures 11.4 cm in maximum dimension. FREE FLUID: None. US/US abdomen limited IMPRESSION: Mild right hepatomegaly with mild hepatic steatosis. No focal lesion seen. Visualized portions of the pancreas appears unremarkable. ? Code(s): K75.81 - Nonalcoholic steatohepatitis (ALMENDAREZ) (3) Chronic idiopathic constipation: Code(s): K59.04 - Chronic idiopathic constipation (4) Abdominal bloating: Code(s): R14.0 - Abdominal distension (gaseous) Medications: Refilled simethicone 180 mg PO QID 120 caps 6RF R14.0 - Abdominal distension (gaseous) famotidine (Acid House Repairer (famotidine)) 10 mg PO BID 60 ea 6RF K21.9 - Gastro- esophageal reflux disease without esophagitis Coding Level of Care Code Est Pt Level 4 (43861) Diagnoses GERD (gastroesophageal reflux disease) K21.9 ALMENDAREZ (nonalcoholic steatohepatitis) K75.81 Chronic idiopathic constipation K59.04 Abdominal bloating R14.0
[2023-01-29 10:40] VITALS: BP 139/65; PULSE 66; BMI 28.5
== END 2023-01-29 11:02 | disposition home or self-care (01) ==
PROVIDERS: Visit Provider Nurse Practitioner
DX: K21.9 Gastro-esophageal reflux disease without esophagitis (principal); K75.81 Nonalcoholic steatohepatitis (NASH); K59.04 Chronic idiopathic constipation; R14.0 Abdominal distension (gaseous)
CPT/HCPCS: 99214

== ENCOUNTER → 2023-01-29 10:27 | Outpatient (BNVA) | payer OTHER, SELFPAY | PROVIDERS: Visit Provider Nurse Practitioner | DX: K21.9 Gastro-esophageal reflux disease without esophagitis (principal); K75.81 Nonalcoholic steatohepatitis (NASH); K59.04 Chronic idiopathic constipation; R14.0 Abdominal distension (gaseous); Z79.899 Other long term (current) drug therapy | CPT/HCPCS: 99212 ==

== ENCOUNTER 2023-05-13 14:47 | Emergency (ER) | payer OTHER, SELFPAY ==
--- NOTE | ~2023-05-13 | CT_ITS ---
EXAMINATION: CT HEAD WITHOUT CONTRAST CLINICAL INFORMATION: Fall. Headache. COMPARISON: Previous head CT March 2013 TECHNIQUE: Contiguous axial imaging was performed from the skull base to vertex without intravenous administration of contrast. This CT examination was performed using dose optimization techniques as appropriate, variously including the following: *Automated exposure control *Adjustment of mA and/or kV according to patient size (this includes techniques or standardized protocols for targeted exams where dose is matched to indication/reason for exam; i.e. extremities or head) *Use of iterative reconstruction technique DLP: 645 mGy-cm FINDINGS: There is no evidence of an extra-axial collection. There is no evidence of intra-axial or extra-axial hemorrhage. Ventricles and extra-axial CSF spaces are slightly prominent mild generalized atrophy. There is mild nonspecific periventricular white matter disease. No mass, mass effect or infarct is seen. No skull fracture. Inflammatory changes in the right maxillary and ethmoid sinus. CT/CT head/brain wo IV con IMPRESSION: No acute findings. Mild sinus disease.
--- NOTE | ~2023-05-13 | CT_ITS ---
EXAMINATION: CT CERVICAL SPINE WITHOUT CONTRAST CLINICAL INFORMATION: Fall. Pain. COMPARISON: None available. TECHNIQUE: Axial images through the cervical spine without contrast. Sagittal and coronal reconstructions on the technologist's workstation were performed. This CT examination was performed using dose optimization techniques as appropriate, variously including the following: *Automated exposure control. *Adjustment of mA and/or kV according to patient size (this includes techniques or standardized protocols for targeted exams where dose is matched to indication/reason for exam; i.e. extremities or head). *Use of iterative reconstruction technique. DLP: 393 mGy-cm FINDINGS: Bone alignment is normal. No fracture or dislocation. Degenerative spondylosis at C2-C3 and C4-C5 and C5-C6. Mild disc space narrowing at C5-C6. Degenerative changes at the C1 dens articulation. Bilateral multilevel facet arthritis. Prevertebral soft tissues are normal. Visualized lung apices. Bilateral carotid calcification. CT/CT cervical spine wo IV con IMPRESSION: Degenerative changes. No fracture or dislocation. Fleischner guidelines were followed.
--- NOTE | ~2023-05-13 | CT_ITS ---
EXAMINATION: CT PELVIS WITHOUT CONTRAST CLINICAL INFORMATION: Right hip and inguinal pain status post fall COMPARISON: Right hip and pelvis radiographs 05/13/2023 CT abdomen pelvis 11/10/2018 TECHNIQUE: Helical scanning was performed with submillimeter collimation through the pelvis. Sagittal and coronal multiplanar 2-D reconstructions were obtained. This CT examination was performed using dose optimization techniques as appropriate, variously including the following: *Automated exposure control *Adjustment of mA and/or kV according to patient size (this includes techniques or standardized protocols for targeted exams where dose is matched to indication/reason for exam; i.e. extremities or head) *Use of iterative reconstruction technique DLP: 1430 mGy-cm FINDINGS: There is a subtle nondisplaced fracture of the inferior pubic ramus on the right not visible on plain film radiography. No fractures are seen. The remainder of the pelvis appears normal. Ribs are unremarkable. The uterus is absent. The bladder is unremarkable. Some scattered colonic diverticula are seen without diverticulitis. An abnormal pelvic mass is not detected. No free intraperitoneal fluid. No pelvic hematomas. CT/CT pelvis wo IV con IMPRESSION: 1. There is a subtle nondisplaced fracture of the inferior pubic ramus on the right not visible on plain film radiography. No other fractures are seen. 2. Scattered colonic diverticula without diverticulitis. 3. The uterus is absent. 4. No pelvic hematomas are seen.
--- NOTE | ~2023-05-13 | XR_ITS ---
EXAMINATION: XR HIP, RIGHT CLINICAL INFORMATION: Pain after fall COMPARISON: None available. TECHNIQUE: Two views of the right hip. AP view of the pelvis FINDINGS: On the AP view the pelvis, left patient is slightly rotated into a left anterior oblique position. Alignment is normal at the hips, pubic symphysis and sacroiliac joints. No radiographic evidence of acute pelvic bone fracture. Joint space of each hip is maintained. At the right hip, the femoral head is well-positioned within the intact acetabulum. There is mild osteophyte formation at the posteromedial aspect of the femoral head. Surgical clips are seen in the proximal medial right thigh. There are peripheral vascular calcifications. XR/XR hip RT w PEL1V IMPRESSION: * Mild osteoarthritis of the right hip. * No acute fracture or malalignment at the right hip.
[2023-05-13 15:05] VITALS: BP 130/90; BP 135/52; PULSE 75; PULSE 76; RESP 18; TEMP 36.8; O2SAT 97; O2SAT 99; BMI 27.8
--- NOTE | 2023-05-13 15:32 | ED.FALL ---
HPI - Fall General Chief Complaint: Fall Stated Complaint: TRIP/FALL ON CURB, R HIP PAIN PER EMS Time Seen by Provider: 05/13/23 14:53 Source: patient and EMS Mode of arrival: EMS Limitations: no limitations History of Present Illness HPI Narrative: 72-year-old female with history of BART, diabetes, CAD status post CABG, chronic restrictive lung disease, constipation, HTN, ALMENDAREZ who presents to the ER via EMS for evaluation of right hip pain after she tripped over a curb and fell in the [employer] parking lot today. She states she fell onto her right hip and was unable to get up. EMS was called who was able to have her briefly bear weight and pivot. She states she did not hit her head or sustain any other injuries. She reports the pain is in her anterior hip and pelvic area. She has a hard time bending the knee due to pain in the hip. She is not on anti-coagulation. She denies headache or neck pain. She is uncomfortable in the collar, her chin was in the middle of it. MD complaint: fall Onset (ago): minute(s) Fall from: standing Fall witnessed: yes, by bystander Place fall occurred: street Loss of consciousness: none Prolonged down time: no Symptoms prior to fall: none Context: tripped/slipped Location of injury: pelvis Severity: severe Severity scale (1-10): 8 Quality: aching Associated symptoms (after fall): denies Related Data Home Medications Medication Instructions Recorded Confirmed amlodipine 10 mg tablet 10 mg PO QAM 07/13/20 10/17/21 aspirin 81 mg tablet,delayed 81 mg PO QAM 07/13/20 10/17/21 release blood sugar diagnostic #10 ea 07/13/20 10/17/21 cholecalciferol (vitamin D3) 25 25 mcg PO QAM 07/13/20 10/17/21 mcg (1,000 unit) tablet ezetimibe 10 mg tablet 10 mg PO BEDTIME 07/13/20 10/17/21 lancets 33 gauge #100 ea 07/13/20 10/17/21 losartan 50 mg tablet 50 mg PO DAILY 07/13/20 10/17/21 montelukast 10 mg tablet 10 mg PO BEDTIME 07/13/20 10/17/21 rosuvastatin 40 mg tablet 40 mg PO DAILY 07/13/20 10/17/21 trazodone 50 mg tablet 50 mg PO BEDTIME 07/13/20 10/17/21 dulaglutide 0.75 mg/0.5 mL 0.75 mg subcut QWEEK 05/03/21 10/17/21 subcutaneous pen injector (Trulicity) metformin 750 mg tablet,extended 750 mg PO BID 05/03/21 10/17/21 release 24 hr insulin glargine 100 unit/mL (3 16 - 18 unit subcut QPM 01/21/23 mL) subcutaneous pen (Lantus Solostar U-100 Insulin) levocetirizine 5 mg tablet 5 mg PO DAILY 01/21/23 Previous Rx's Medication Instructions Recorded nitrofurantoin macrocrystal 50 mg 50 mg PO BEDTIME 90 days #90 caps 09/17/22 capsule pentosan polysulfate sodium 100 mg 200 mg (2 x 100 mg) PO BID 90 days 10/15/22 capsule (Elmiron) #360 caps famotidine 10 mg tablet (Acid 10 mg PO BID #60 ea 01/29/23 Developer [employer]ver [employer] (famotidine)) simethicone 180 mg capsule 180 mg PO QID #120 caps 01/29/23 magnesium oxide 400 mg (241.3 mg 400 mg PO BEDTIME 30 days #30 tabs 05/06/23 magnesium) tablet riboflavin (vitamin B2) 100 mg 400 mg (4 x 100 mg) PO QAM 30 days 05/06/23 tablet (Vitamin B-2) #120 tabs Allergies Allergy/AdvReac Type Severity Reaction Status Date / Time adhesive tape [ADHESIVE TAPE] Allergy Intermediate RASH-LOCALI Verified 05/13/23 15:08 ZED latex Allergy Rash Verified 05/13/23 15:08 Review of Systems Review of Systems: Yes all other systems are reviewed and are negative PMFSH Past Medical History Medical History Chronic restrictive lung disease Dyspnea Recurrent UTI (urinary tract infection) DILSHAD (stress urinary incontinence, female) Surgical History H/O colonoscopy H/O esophagogastroduodenoscopy History of bladder suspension procedure History of hysterectomy History of tubal ligation S/P CABG x 3 Family History Family History Father Alcohol abuse Cirrhosis Mother Cervical cancer Paternal Grandfather Stomach cancer Social History Social History Household Members: Children Alcohol intake: never Patient Tobacco Use Status: Never used Tobacco Advance Directives: No Current occupational status: retired Current occupation: lt handed Physical Exam Vital Signs: Vital Signs: Last Vital Signs Temp 98.2 F 05/13/23 15:05 Pulse 75 05/13/23 15:05 Resp 18 05/13/23 15:05 BP 135/52 L 05/13/23 15:05 Pulse Ox 97 05/13/23 15:05 O2 Del Method Room Air 05/13/23 15:05 BMI result Body Mass Index 27.8 Appearance: Alert. Oriented X3. No acute distress. Head: normocephalic, atraumatic. Eyes: Pupils equal, round and reactive to light. ENT: Pharynx normal. No tonsillar swelling or exudate. Neck: Normal inspection. Neck supple. No midline tenderness. Soft tissue tenderness and spasm of the upper trapezius on the left side CVS: Normal heart rate and rhythm. Pulses normal. Respiratory: No respiratory distress. Breath sounds normal. Abdomen: Soft and nontender. +BS x4 Skin: Skin warm and dry. Normal skin color. Normal skin turgor. No rashes. Extremities: No lower extremity edema. No joint swelling. Right anterior hip and inguinal area w/ tenderness. able to flex the hip to about 30 degrees passively w/ pain limiting further ROM. normal inspection and palpation of the right thigh, knee, and ankle. Neuro/psych: Oriented X 3. No motor deficit. No sensory deficit. CN II-XII intact. Normal speech and cognition. Medical Decision Making Medical Decision Making MDM Narrative: 72-year-old female with history of BART, diabetes, CAD status post CABG, chronic restrictive lung disease, constipation, HTN, ALMENDAREZ who presents to the ER via EMS for evaluation of right hip pain after she tripped over a curb and fell in the [employer] parking lot today. Denied head strike or LOC, c/o right hip pain. Cervical collar removed due to absence of head strike, no neck pain and benign exam. 17:30 - XR right hip without acute fracture. When attempted to bear weight patient was unable, hyperventilating and in severe pain. Family at the bedside who was at the scene reports the patient in fact did hit the back of her head. She is now reporting a posterior headache. no neck pain Will get CT scans of the head/cervical spine and pelvis to r/o missed fracture on x-ray. Anticipate she will required PT evaluation and case management consult given she cannot ambulate due to pain. Differential Diagnosis Differential Diagnoses: The differential diagnosis associated with the presentation includes right hip fracture, hip contusion, pubic rami fracture, muscle strain, concussion without LOC, ICH/SAH, closed head injury Admission/Observation Consideration of admission/observation: Escalation of care including admission/observation considered unable to bear weight Independent Interpretation I performed an independent interpretation of an: Plain X-Ray Interpretation: xr hip without acute displaced fx, agree w/ radiology read Radiology Impression Discussion of test interpretation with radiology: I have reviewed the radiologist's reading. Radiologist Impression: EXAMINATION: XR HIP, RIGHT CLINICAL INFORMATION: Pain after fall COMPARISON: None available. TECHNIQUE: Two views of the right hip. AP view of the pelvis FINDINGS: On the AP view the pelvis, left patient is slightly rotated into a left anterior oblique position. Alignment is normal at the hips, pubic symphysis and sacroiliac joints. No radiographic evidence of acute pelvic bone fracture. Joint space of each hip is maintained. At the right hip, the femoral head is well-positioned within the intact acetabulum. There is mild osteophyte formation at the posteromedial aspect of the femoral head. Surgical clips are seen in the proximal medial right thigh. There are peripheral vascular calcifications. XR/XR hip RT w PEL1V IMPRESSION: * Mild osteoarthritis of the right hip. * No acute fracture or malalignment at the right hip. Independent Historian Clinical information obtained from an independent historian. History obtained from or confirmed by: Parent and EMS External Record Review External record reviewed: Outpatient record, Prior outpatient labs and Prior outpatient radiology Prescription Management I considered prescription management with: Pain Medication Chronic Conditions Patient?s care impacted by: Diabetes and Hypertension Critical Care Time Critical Care Time Critical Care Time: No Discharge Plan Discharge Clinical Impression: Acute pain of right hip Fall Qualifiers: Encounter type: initial encounter Qualified Code(s): W19.XXXA - Unspecified fall, initial encounter Patient Disposition: Still a Patient Prescriptions: No Action Elmiron 100 mg capsule 200 mg PO BID 90 Days Qty: 360 1RF magnesium oxide 400 mg (241.3 mg magnesium) tablet 400 mg PO BEDTIME 30 Days Qty: 30 6RF Rx Instructions: may hold for loose stools riboflavin (vitamin B2) [Vitamin B-2] 100 mg tablet 400 mg PO QAM 30 Days Qty: 120 6RF Trulicity 0.75 mg/0.5 mL pen injector 0.75 mg subcut QWEEK metformin 750 mg tablet extended release 24 hr 750 mg PO BID cholecalciferol (vitamin D3) 25 mcg (1,000 unit) tablet 25 mcg PO QAM rosuvastatin 40 mg tablet 40 mg PO DAILY montelukast 10 mg tablet 10 mg PO BEDTIME aspirin 81 mg tablet,delayed release (DR/EC) 81 mg PO QAM trazodone 50 mg tablet 50 mg PO BEDTIME losartan 50 mg tablet 50 mg PO DAILY (DME) lancets 33 gauge misc See Rx Instructions Not Applicable TID Qty: 100 Rx Instructions: As directed ezetimibe 10 mg tablet 10 mg PO BEDTIME amlodipine 10 mg tablet 10 mg PO QAM (DME) OneTouch Ultra Blue Test Strip Strip See Rx Instructions Not Applicable TID Qty: 10 Rx Instructions: As directed nitrofurantoin macrocrystal 50 mg capsule 50 mg PO BEDTIME 90 Days Qty: 90 3RF Rx Instructions: must administer with a meal/food simethicone 180 mg capsule 180 mg PO QID Qty: 120 6RF famotidine [Acid Developer [employer] (famotidine)] 10 mg tablet 10 mg PO BID Qty: 60 6RF levocetirizine 5 mg tablet 5 mg PO DAILY insulin glargine [Lantus Solostar U-100 Insulin] 100 unit/mL (3 mL) insulin pen 16 - 18 unit subcut QPM
[2023-05-13 20:17] VITALS: BP 147/62; PULSE 89; RESP 18; TEMP 36.3; O2SAT 97
--- NOTE | 2023-05-13 20:58 | MHC.EDTECH ---
Patient changed over to inpatient bed
[2023-05-13] MEDS: traMADoL HCL 50 MG TABLET PO (21:31)
[2023-05-13 21:33] LABS: MANUAL DIFF FLAG NO
[2023-05-13 21:36] LABS: Basophils Percent Auto 0.5 % (0-2); Eosinophils Percent Auto 0.4 % (0-4); Hematocrit 35.4 % (37.0-47.0); Hemoglobin 11.5 g/dl (12.0-16.0); Imm Gran Abs Auto 0.02 X10*3/uL (0.00-0.03); Imm Gran Pct Auto 0.2 % (0.0-0.4); Lymphocytes Percent Auto 23.8 % (20-40); Mean Corpuscular HGB Conc 32.5 g/dl (31.0-35.0); Mean Corpuscular Hemoglobin 27.8 pg (27.0-33.0); Mean Corpuscular Volume 85.7 fL (80.0-98.0); Mean Platelet Volume 9.9 fL (9.4-12.3); Monocytes Absolute Auto 0.6 X10*3/uL (0.1-1.2); Monocytes Percent Auto 6.7 % (2-11); Neutrophils Absolute Auto 5.8 x10*3/uL (2.0-8.3); Neutrophils Percent Auto 68.4 % (45-73); Platelet Count 221 X10*3/uL (160-400); Red Blood Count 4.13 X10*6/uL (4.20-5.50); Red Cell Distribution Width 14.1 % (11.0-16.0); White Blood Count 8.5 X10*3/uL (4.8-10.8)
[2023-05-13 21:47] LABS: Anion Gap 16 (12-20); Blood Urea Nitrogen 10 mg/dL (9-16); Carbon Dioxide 22 mmol/L (22-29); Chloride 106 mmol/L (96-108); Creatinine Clr Calc Pharmacy 71.1; Estimated Glomerular Filt Rate > 60; Glucose Random 222 mg/dL (60-115); Potassium 4.4 mmol/L (3.3-5.1); Sodium 140 mmol/L (135-145)
[2023-05-14 03:37] VITALS: BP 143/61; PULSE 69; RESP 16; TEMP 37.5; O2SAT 97
[2023-05-14] MEDS: traMADoL HCL 50 MG TABLET PO (05:50)
[2023-05-14 06:10] VITALS: BP 139/62; PULSE 75; RESP 18; O2SAT 96
--- NOTE | 2023-05-14 06:13 | PC.NURSE ---
this RN assumed care of pt at this time. pt resting comfortably in bed, no c/o pain or discomfort, no apparent distress.
[2023-05-14 08:36] VITALS: BP 132/58; PULSE 68; O2SAT 96
[2023-05-14 08:42] VITALS: BP 132/58; PULSE 68; RESP 16; TEMP 36.6; O2SAT 96
[2023-05-14 08:50] LABS: COVID-19 Test Negative (Negative); IDNOW Serial# BCCEAD1C
--- NOTE | 2023-05-14 10:11 | MHC.CM.ED ---
Addendum entered by Prabha Gee 05/14/23 14:08: HCP completed, signed and witnessed. Original given to patient. Copy placed in chart. Addendum entered by Prabha Gee 05/14/23 12:59: [facility] does not have a bed to offer. Referral sent to [facility], [facility], and [facility]. All are able to offer a bed. These options discussed with patient and batter mixer helper. [facility] is patient's 1st choice. [facility] aware and asked to go for ins auth. Original Note: Received case management consult overnight. Patient came to the ER after a fall. Found to have a pubic rami fx. Physical therapy eval completed. Short term rehab is recommended. Met with patient and batter mixer helper in regards to discharge planning. Patient lives with her daughter, uses a cane for mobility and her son is her CHILD SUPPORT AGENT [facility] Shadia. PCP verified. Patient states she has a HCP and will attempt to obtain a copy. Patient received 3 Moderna vaccines. List of facilities contracted with patient's insurance provided to patient. Patient has been to [facility] in the past and is requesting a referral there. Referral made via [facility]. [facility] and patient's PCP's office do not have copies of patient's HCP. Continue to monitor for d/c needs.
--- NOTE | 2023-05-14 13:53 | PHA.MEDREC ---
Pharmacy Consult ? Medication Reconciliation Pharmacy has reviewed the medication reconciliation completed by Lizz. Lantus was missed. Confirmed with patient's son Fredy that patient is still on insulin. Apoorva Gee, PharmD
[2023-05-14 14:00] VITALS: BP 137/62; PULSE 72; RESP 12; TEMP 36.4; O2SAT 96
--- NOTE | 2023-05-14 14:38 | PC.NURSE ---
Pt currently resting on HB, appears in NAD. VSS. Awaiting short term rehab placement. WCTA
[2023-05-14] MEDS: Acetaminophen 325 MG TABLET 975 MG PO (15:46)
[2023-05-14] MEDS: oxyCODONE HCl Immed Release 5 MG TABLET PO (15:46)
--- NOTE | 2023-05-14 15:46 | MHC.CM.ED ---
Insurance auth has been obtained by [facility]. Patient will leave at 530pm. Raji IBARRA booked. [facility] with chart. Patient, Abbey SCHNEIDER and Lilibeth MACIAS aware. Patient's son, Fredy made aware via telephone at [phone]. Continue to monitor for d/c needs.
== END 2023-05-14 16:55 | disposition skilled nursing facility (03) ==
PROVIDERS: Physician Assistant; Physician Assistant Medical; Emergency Provider Emergency Medicine Emergency Medical Services; PCP Family Medicine
DX: S79.911A Unspecified injury of right hip, initial encounter (principal); M25.551 Pain in right hip; I25.10 Atherosclerotic heart disease of native coronary artery without angina pectoris; R26.2 Difficulty in walking, not elsewhere classified; R51.9 Headache, unspecified; M54.2 Cervicalgia; R10.2 Pelvic and perineal pain; W01.10XA Fall on same level from slipping, tripping and stumbling with subsequent striking against unspecified object, initial encounter; Y93.9 Activity, unspecified; Y92.480 Sidewalk as the place of occurrence of the external cause; Y99.9 Unspecified external cause status; Z11.52 Encounter for screening for COVID-19; Z20.822 Contact with and (suspected) exposure to COVID-19; Z79.899 Other long term (current) drug therapy
CPT/HCPCS: 36415; 70450; 72125; 72192; 73502; 80048; 85025; 87635; 97161; 99285

== ENCOUNTER 2023-06-03 13:41 | Outpatient (AMB) | payer OTHER, SELFPAY ==
--- NOTE | 2023-06-03 13:55 | A.OFFVIS_ITS ---
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 Patient reports having a fall landing on her right side injuring her right hip and knee. She presented to [facility] ED where xrays were taken and referred to orthopedics. Currently she has constant pain in her hip and knee. Finds very little to no relief. Tylenol. Patient uses a walker to ambulate. 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 She was seen at ED where x-rays were performed and she was referred to our office. She currently states she has constant pain in her hip and knee. She also c/o pain in her groin region. She finds minimal relief with Tylenol. She uses a walker to ambulate. [facility] Medical History Chronic restrictive lung disease Dyspnea Recurrent UTI (urinary tract infection) DILSHAD (stress urinary incontinence, female) Surgical History H/O esophagogastroduodenoscopy H/O colonoscopy History of bladder suspension procedure S/P CABG x 3 History of tubal ligation History of hysterectomy Family History Father Alcohol abuse Cirrhosis Mother Cervical cancer Paternal Grandfather Stomach cancer Social History Household Members: Children Alcohol intake: never Patient Tobacco Use Status: Never used Tobacco Advance Directives Date on File: 05/14/23 Current occupational status: retired Current occupation: lt handed Review of Systems Const All systems reviewed & are unremarkable except as noted in HPI and below Physical Exam Vital Signs: BMI result Body Mass Index 26.9 Office Procedures Fracture Care Fracture Billing Code: Fracture Billing Code Results Reviewed Results Reviewed: Xrays were obtained in the office today and personally reviewed by me of the right hip show subtle canticle lucency along the inferior pubic rami Assessment & Plan Assessment & Plan (1) Fracture of right inferior pubic ramus: Code(s): S32.591A - Other specified fracture of right pubis, initial encounter for closed fracture Qualifiers: Encounter type: initial encounter Fracture type: closed Qualified Code(s): S32.591A - Other specified fracture of right pubis, initial encounter for closed fracture Orders: Orders XR hip RT w PEL1V Today M25.559 - Pain in unspecified hip Patient Instructions: Scribed for Sinai Ponce PA-C, by Jonathan Lubin health care / medical job titles, on 06/03/2023 at 1:45 PM EST. I, Sinai Ponce PA-C, have personally reviewed and agree with the information entered by the scribe. Coding Level of Care Code New Pt Level 3 (99123) Diagnoses Closed fracture of right inferior pubic ramus, initial encounter S32.591A Encounter type: initial encounter Fracture type: closed CPT Codes Fracture Care - Fracture Billing Code: Fracture Billing Code ([id number])
[2023-06-03 13:56] VITALS: BMI 26.9
== END 2023-06-03 14:26 | disposition home or self-care (01) ==
PROVIDERS: PCP Family Medicine; Visit Provider Physician Assistant
DX: S32.591A Other specified fracture of right pubis, initial encounter for closed fracture (principal)
CPT/HCPCS: 99213

== ENCOUNTER 2023-06-03 13:41 | Outpatient (REF) | payer OTHER, SELFPAY ==
--- NOTE | ~2023-06-03 | XR_ITS ---
EXAMINATION: XR HIP, RIGHT CLINICAL INFORMATION: Pain COMPARISON: None available. TECHNIQUE: Two views of the right hip. FINDINGS: No fracture. Alignment is anatomic. Hip joint space is maintained. Soft tissues are unremarkable. XR/XR hip RT w PEL1V IMPRESSION: Normal right hip.
== END 2023-06-03 13:42 | disposition home or self-care (01) ==
LOC: HO.HOSX 13:41
PROVIDERS: PCP Family Medicine; Visit Provider Physician Assistant
DX: S32.591A Other specified fracture of right pubis, initial encounter for closed fracture (principal)
CPT/HCPCS: 73502; 99212

== ENCOUNTER 2023-06-05 11:34 | Outpatient (AMB) | payer OTHER, SELFPAY ==
--- NOTE | 2023-06-05 11:35 | A.OFFVIS_ITS ---
Intake Intake Visit Reasons: Recurrent UTI- 6m follow up/PVR Intake Note: Patient is present for follow up recurrent uti/ultrasound (imaging 11/14/22) Urology Medications: macrobid /elmiron Blood Thinner: aspirin PVR: 46ml's Computer Science Intern Required: Yes Computer Science Intern Name: Georgette Dye CMI Accompanied by: Son Allergies adhesive tape [ADHESIVE TAPE] Allergy (Intermediate, Verified 06/05/23 12:22) RASH-LOCALIZED latex Allergy (Verified 06/05/23 12:22) Rash Medication List - Last Reconciled 06/05/23 by LAURIE Carrion- amlodipine 10 mg PO QAM aspirin 81 mg PO QAM blood sugar diagnostic As directed cholecalciferol (vitamin D3) 25 mcg PO QAM dulaglutide (Trulicity) 0.75 mg subcut QWEEK ezetimibe 10 mg PO BEDTIME famotidine (Acid Client Server Programmer (famotidine)) 10 mg PO BID insulin glargine (Lantus Solostar U-100 Insulin) 16 units subcut QPM lancets As directed levocetirizine 5 mg PO DAILY losartan 50 mg PO DAILY magnesium oxide 400 mg PO BEDTIME 30 days metformin ER 750 mg PO BID montelukast 10 mg PO BEDTIME oxycodone 5 mg PO Q6H PRN pentosan polysulfate sodium (Elmiron) 200 mg (2 x 100 mg) PO BID 90 days riboflavin (vitamin B2) (Vitamin B-2) 400 mg (4 x 100 mg) PO QAM 30 days rosuvastatin 40 mg PO DAILY simethicone 180 mg PO QID trazodone 50 mg PO BEDTIME HPI HPI Comments History of Present Illness Details Sofía is a pleasant 73 year old Turkmen speaking patient of who was accompanied by her son at today's office visit. She has a PMH of restrictive lung disease, hypertension, and diabetes. She presents to the office today for a follow up recurrent urinary tract infections and interstitial cystitis. She reports to be doing and feeling well. When asked she denies having any lower urinary tract symptoms since her last office visit here approximately 6 months ago. She denies having had any UTI like symptoms since her last office visit. She reports feeling low-dose antibiotic therapy and Elmiron has been working well for her. Discussed affects of Elmiron and attempting to come off urological medications however patient reports she would like to continue as she feels this is the best she has felt with her urinary issues since being on these medications. Discussed alternatives as well as lifestyle modifications to assist with these issues. Previous workup has included a retroperitoneal ultrasound noting bilateral kidneys with no calculi, lesions, and or hydronephrosis she noted. The bladder is well distended and normal. Bilateral ureteral jets are demonstrated. Pre void bladder volume is approximately 450 mL. Postvoid bladder volume is approximately 125 mL. When asked she reports feeling well and offers no concerns or issues at this time. In office urinalysis results reviewed with the patient today. PVR 46mls. Discussed at length importance of managing diabetes for improvement in urinary symptoms as well as overall health and well- being. When asked patient denies any changes to her urinary habits. She denies urinary urgency, urinary frequency, incontinence, dysuria, hematuria, changes to urinary stream, fever, and or chills. She discusses her recent fall at home and is undergoing therapy. She otherwise denies any issues or concerns at this time. [facility] Medical History Dyspnea Chronic restrictive lung disease DILSHAD (stress urinary incontinence, female) Recurrent UTI (urinary tract infection) Surgical History H/O esophagogastroduodenoscopy H/O colonoscopy History of bladder suspension procedure S/P CABG x 3 History of tubal ligation History of hysterectomy Family History Father Alcohol abuse Cirrhosis Mother Cervical cancer Paternal Grandfather Stomach cancer Social History Household Members: Children Alcohol intake: never Patient Tobacco Use Status: Never used Tobacco Advance Directives Date on File: 05/14/23 Current occupational status: retired Current occupation: lt handed Review of Systems Const Reports as per HPI Eyes Reports no additional complaints ENT Reports no additional complaints Card Reports as per HPI Resp Reports as per HPI GI Reports no additional complaints Reports as per HPI Musc Reports as per HPI Neuro Reports no additional complaints Psych Reports no additional complaints Endo Reports as per HPI Physical Exam Const General: cooperative, comfortable, no acute distress, well developed, alert and awake Orientation/consciousness: patient oriented x3 Limitations: no limitations HEENT Head: Yes normal to inspection, Yes normocephalic and Yes atraumatic Ears: hearing grossly normal bilaterally Eyes General: appearance normal, both eyes and all related structures Neck Neck: Yes normal visual inspection and Yes trachea midline Chest Chest palpation & inspection: normal inspection of the chest Resp Effort & Inspection: normal respiratory effort and able to speak in complete sentences Cardio Rate: regular rate GI Inspection: Yes normal to inspection General: Yes no CVA tenderness Back/Spine/Pelvis Back: no CVA tenderness Skin General skin exam: no rashes or lesions noted Neuro General: patient oriented x3 Extrem General: Yes normal to inspection Psych Appearance: grossly normal and well kempt Mental Status: mental status grossly normal Speech and movement: Normal speech and movement present and Clear speech present Affect: normal affect Attitude: cooperative Thought process: Normal thought process present Thought content: Normal thought content present Insight: Fair insight present (Psych) Judgement: Fair judgement present (Psych) Office Procedures Post Void Residual Post Residual Void Post Void Residual (PVR): 46 [id number] Void Residual by ultrasound Assessment & Plan Assessment & Plan (1) Recurrent UTI (urinary tract infection): Code(s): N39.0 - Urinary tract infection, site not specified (2) Interstitial cystitis: Code(s): N30.10 - Interstitial cystitis (chronic) without hematuria Plan In office urinalysis results reviewed with the patient today; as noted above. PVR 46 mL. Discussed at length other treatment options for interstitial cystitis and recurrent urinary tract infections Discussed at length bladder triggers/irritants. Discussed lifestyle modifications to assist with UTI prevention and interstitial cystitis symptoms. Continue Elmiron as discussed and prescribed however will decrease dose. Continue Macrobid as discussed and prescribed. Discussed UTI prevention with D mannose supplement, vitamin-C, increasing fluid intake, behavioral therapy with timed voiding, perineal hygiene and postcoital voiding, and management of constipation with stool softeners and increased fiber intake. Patient denies any bothersome urinary issues or concerns at this time. Patient reports be happy with current voiding parameters. Follow-up in 1 year with PVR; or sooner with any issues, concerns, and or questions. Orders: Orders AMB Post Void Residual by ultrasound Today N39.0 - Urinary tract infection, site not specified Medications: New nitrofurantoin macrocrystal must administer with a meal/food 50 mg PO BEDTIME 90 days 90 caps 3RF N39.0 - Urinary tract infection, site not specified Changed From pentosan polysulfate sodium (Elmiron) 200 mg (2 x 100 mg) PO BID 90 days 360 caps 1RF To pentosan polysulfate sodium (Elmiron) 100 mg PO BID 90 days 180 caps 3RF Patient Instructions: The patient had an opportunity to ask questions regarding the treatment plan. All questions were answered. Physical exam, labs, and imaging were discussed and reviewed in detail. As well as risks, benefits, and discussion of treatment choices. No major barriers to understanding were identified. The patient expressed understanding and agreement with the above treatment plan. The patient was made aware they should contact our office by phone for worsening of their current condition, the appearance of new symptoms, or with any questions or concerns. Compliance is encouraged with any medications and follow up testing that is ordered. It is a privilege to be allowed the opportunity to participate in? your urological care.? Again, if you have any questions or concerns If you have any questions or concerns please do not hesitate to contact me. The office is [phone]. This note is constructed using voice recognition software. While every effort has been made to ensure accuracy enterprise application developer errors may have been included. Yours sincerely, HARIS Carrion Coding Level of Care Code Est Pt Level 4 (57591) Diagnoses Recurrent UTI (urinary tract infection) N39.0 Interstitial cystitis N30.10 CPT Codes Post Residual Void - PVR CPT Code: 10605-Hmoe Void Residual by ultrasound ([id number])
== END 2023-06-05 11:56 | disposition home or self-care (01) ==
PROVIDERS: Visit Provider Nurse Practitioner Family
DX: N39.0 Urinary tract infection, site not specified (principal); N30.10 Interstitial cystitis (chronic) without hematuria
CPT/HCPCS: 99214

== ENCOUNTER → 2023-06-05 11:34 | Outpatient (BNVA) | payer OTHER, SELFPAY | PROVIDERS: Visit Provider Nurse Practitioner Family | DX: N30.10 Interstitial cystitis (chronic) without hematuria (principal); N39.0 Urinary tract infection, site not specified | CPT/HCPCS: 51798; 99212 ==

== ENCOUNTER 2023-06-20 12:38 | Outpatient (REF) | payer OTHER, SELFPAY ==
--- NOTE | ~2023-06-20 | XR_ITS ---
EXAMINATION: XR KNEE, RIGHT CLINICAL INFORMATION: Knee pain after fall in April COMPARISON: None available. TECHNIQUE: Four views of the right knee. FINDINGS: No fracture or dislocation. Very small suprapatellar effusion. No significant joint space narrowings. Surgical clips medial knee. Vascular calcifications. XR/XR knee RT 3V IMPRESSION: No acute bony pathology.
== END 2023-06-20 12:39 | disposition home or self-care (01) ==
LOC: HO.HHCX 12:38
PROVIDERS: Visit Provider Family Medicine
DX: M25.561 Pain in right knee (principal); G89.29 Other chronic pain
CPT/HCPCS: 73562

== ENCOUNTER 2023-06-20 13:00 | Outpatient (REF) | payer OTHER, SELFPAY ==
[2023-06-20 16:33] LABS: Cholesterol 120 mg/dL (<200); HDL Cholesterol 49 mg/dL (>40); LDL Cholesterol Calculated 33 mg/dL (<100); Triglycerides 190 mg/dL (<150)
[2023-06-20 16:34] LABS: Alanine Aminotransferase 27 U/L (0-31); Albumin Level 4.5 g/dL (3.5-5.0); Alkaline Phosphatase 90 U/L (39-117); Anion Gap 11 (12-20); Aspartate Amino Transferase 26 U/L (5-31); Bilirubin Total 0.3 mg/dL (0.0-1.0); Blood Urea Nitrogen 12 mg/dL (9-16); Calcium 10.2 mg/dL (8.4-10.2); Carbon Dioxide 26 mmol/L (22-29); Chloride 105 mmol/L (96-108); Estimated Glomerular Filt Rate > 60; Glucose Random 116 mg/dL (60-115); Potassium 4.1 mmol/L (3.3-5.1); Sodium 138 mmol/L (135-145); Total Protein 8.3 g/dL (6.5-8.0)
[2023-06-20 16:39] LABS: TSH reflex Free T4 2.11 uIU/mL (0.32-4.0)
[2023-06-20 16:52] LABS: Folate 9.4 ng/mL (> or = 4.0); Vitamin B12 372 pg/mL (200-900)
[2023-06-20 17:01] LABS: Reflex LDLD? No
[2023-06-20 17:22] LABS: Microalbum/Creatinine Ratio Ur 90.9 ug/mg cr (<30)
== END 2023-06-20 13:01 | disposition home or self-care (01) ==
LOC: HO.HHCL 13:00
PROVIDERS: Visit Provider Family Medicine
DX: E11.9 Type 2 diabetes mellitus without complications (principal); E78.5 Hyperlipidemia, unspecified; I10 Essential (primary) hypertension; Z79.4 Long term (current) use of insulin
CPT/HCPCS: 36415; 80053; 80061; 82043; 82570; 82607; 82746; 84443

== ENCOUNTER 2023-07-29 08:34 | Outpatient (REF) | payer OTHER, SELFPAY ==
--- NOTE | ~2023-07-29 | XR_ITS ---
EXAMINATION: XR PELVIS CLINICAL INFORMATION: Pain in unspecified hip. COMPARISON: Pelvis and right hip 06/03/2023 and 05/13/2023. TECHNIQUE: AP view of the pelvis. FINDINGS: Degenerative changes in the imaged lower lumbar spine. Bones are diffusely demineralized. Vascular calcifications. Mild degenerative changes in the bilateral hips with joint space narrowing and hypertrophic change. XR/XR pelvis 1-2V IMPRESSION: 1. Mild degenerative changes in bilateral hips. 2. Degenerative changes in the imaged lower lumbar spine. 3. MRI should be considered for further evaluation if there is concern for fracture or other pathology.
== END 2023-07-29 08:35 | disposition home or self-care (01) ==
LOC: HO.HOSX 08:34
PROVIDERS: Visit Provider Physician Assistant
DX: S32.591D Other specified fracture of right pubis, subsequent encounter for fracture with routine healing (principal); M76.891 Other specified enthesopathies of right lower limb, excluding foot
CPT/HCPCS: 72170; 99212

== ENCOUNTER 2023-07-29 12:22 | Outpatient (AMB) | payer OTHER, SELFPAY ==
--- NOTE | 2023-07-29 12:30 | MHC.OFFVIS ---
Intake Intake Visit Reasons: ov-Rt pubic rami fx w xrays Intake Note: Sofía a 73 year old female presents today for a follow up of right pubic rami fx, DOI 05/13/23. Patient reports pain is tolerable, states a lot of discomfort in fracture area. Feels instability therefore uses a walker for support. Allergies adhesive tape [ADHESIVE TAPE] Allergy (Intermediate, Verified 07/29/23 12:33) RASH-LOCALIZED latex Allergy (Verified 07/29/23 12:33) Rash HPI ov-Rt pubic rami fx w xrays HPI Details 73-year-old female who returns to the office today with an powder nipper for a follow-up of right pubic rami fracture, 05/13/23. She states she has discomfort in her fracture area which is aggravated with putting pressure and overuse. She uses a walker as support for long distances and she reports she feels instability if not using the walker since her DOI. She is completed with physical therapy last week. [facility] Medical History Dyspnea Chronic restrictive lung disease DILSHAD (stress urinary incontinence, female) Recurrent UTI (urinary tract infection) Surgical History H/O esophagogastroduodenoscopy H/O colonoscopy History of bladder suspension procedure S/P CABG x 3 History of tubal ligation History of hysterectomy Family History Father Alcohol abuse Cirrhosis Mother Cervical cancer Paternal Grandfather Stomach cancer Social History Household Members: Children Alcohol intake: never Patient Tobacco Use Status: Never used Tobacco Advance Directives Date on File: 05/14/23 Current occupational status: retired Current occupation: lt handed Review of Systems Const All systems reviewed & are unremarkable except as noted in HPI and below Physical Exam Extrem Other: Right hip: Normal to inspection. No pain with ROM of hip. she does have discomfort with hip flexion against resistance. No pain over the greater trochanter. NVI. Results Reviewed Results Reviewed: Xrays were obtained in the office today and personally reviewed by me of the pelvis show show acute fracture Assessment & Plan Assessment & Plan (1) Fracture of right inferior pubic ramus: Code(s): S32.591A - Other specified fracture of right pubis, initial encounter for closed fracture Qualifiers: Encounter type: subsequent encounter Fracture type: closed Fracture healing: with routine healing Qualified Code(s): S32.591D - Other specified fracture of right pubis, subsequent encounter for fracture with routine healing (2) Tendonitis of right hip flexor: Code(s): M76.891 - Other specified enthesopathies of right lower limb, excluding foot Plan It seems as though most of her discomfort is muscular at this time I did refer her to formal outpatient physical therapy to work on gait training and strengthening. If symptoms persist or worsens, patient will contact the office, otherwise follow-up as needed. Orders: Orders PT Evaluation and Treatment Today M76.891 - Other specified enthesopathies of right lower limb, excluding foot, S32.591A - Other specified fracture of right pubis, initial encounter for closed fracture XR pelvis 1-2V Today M25.559 - Pain in unspecified hip Patient Instructions: Scribed for Sinai Ponce PA-C, by Jonathan Lubin medical services manager, on 07/29/2023 at 12:45 PM EST. ISinai PA-C, have personally reviewed and agree with the information entered by the scribe. Coding Level of Care Code Global (80043) Diagnoses Closed fracture of right inferior pubic ramus with routine healing, subsequent encounter S32.591D Encounter type: subsequent encounter Fracture type: closed Fracture healing: with routine healing Tendonitis of right hip flexor M76.891
== END 2023-07-29 13:16 | disposition home or self-care (01) ==
PROVIDERS: PCP Family Medicine; Visit Provider Physician Assistant
DX: S32.591D Other specified fracture of right pubis, subsequent encounter for fracture with routine healing (principal); M76.891 Other specified enthesopathies of right lower limb, excluding foot
CPT/HCPCS: 99213

== ENCOUNTER 2023-09-13 08:47 | Outpatient (REF) | payer OTHER, SELFPAY ==
--- NOTE | ~2023-09-13 | MM_ITS ---
EXAMINATION: BONE DENSITOMETRY CLINICAL INDICATION: Postmenopausal. COMPARISON: This is the patient's baseline examination. TECHNIQUE: Using a [employer] DXA System (software version: 13.1) manufactured by [employer], dual-energy x-ray absorptiometry was performed of the lumbar spine and left hip. The images are of good technical quality. Summary results are attached. FINDINGS: LEFT FEMUR, NECK: BMD 0.774 g/cm2, Z-score -0.3, T-score -1.9, osteopenia. LEFT FEMUR, TOTAL: BMD 0.882 g/cm2, Z-score 0.4, T-score -1.0, normal. AP SPINE L1-L4: BMD 0.914 g/cm2, Z-score -0.8, T-score -2.2, osteopenia. IDENTIFIED RISK FACTORS: Menopause, left oophorectomy, hysterectomy, history of fracture (adult), secondary osteoporosis. HISTORY OF FRACTURE: Pelvis. MEDICATIONS: Vitamin D. MM/XR DEXA axial skeleton IMPRESSION: 1. DIAGNOSIS: Osteopenia based on the lowest T-score value of -2.2 in the lumbar spine applying World Health Organization criteria. 2. 10-YEAR FRACTURE RISK PREDICTION, FRAX: Major osteoporotic fracture (clinical spine, forearm, hip or shoulder) 10.7%. Hip fracture 2.1%. 3. Treatment Recommendations: NOF guidelines recommend consideration for treatment in postmenopausal women and men age 50 and older presenting with the following: -A hip or vertebral (clinical or morphometric) fracture. -T-score less than or equal to -2.5 at the femoral neck or spine after appropriate evaluation to exclude secondary causes. -Low bone mass at the hip or spine and a 10-year fracture probability by FRAX of greater than or equal to 3% for hip fracture or greater than or equal to 20% for major osteoporotic fracture based on the [place] adapted WHO algorithm. 4. Other Recommendations: All treatment decisions require clinical judgment and consideration of individual patient factors, including patient preferences, comorbidities, previous drug use, risk factors not captured in the FRAX model (e.g. frailty, falls, vitamin D deficiency, increased bone turnover, interval significant decline in bone density) and possible under or overestimation of fracture risk by FRAX. Additional medical evaluation for secondary cause of low bone mineral density may be appropriate. FUTURE SCAN RECOMMENDATION: People with diagnosed cases of osteoporosis or at high risk for fracture should have regular bone mineral density tests. For patients eligible for Medicare, routine testing is allowed once every 2 years. The testing frequency can be increased to one year for patients who have rapidly progressing disease, those who are receiving or discontinuing medical therapy to restore bone mass, or have additional risk factors.
== END 2023-09-13 08:48 | disposition home or self-care (01) ==
LOC: HO.MAMMO 08:47
PROVIDERS: PCP Family Medicine; Visit Provider Family Medicine
DX: Z13.820 Encounter for screening for osteoporosis (principal); Z78.0 Asymptomatic menopausal state; S32.591A Other specified fracture of right pubis, initial encounter for closed fracture; W18.30XA Fall on same level, unspecified, initial encounter; Y93.9 Activity, unspecified; Y92.9 Unspecified place or not applicable; Y99.9 Unspecified external cause status; Z90.721 Acquired absence of ovaries, unilateral; Z90.710 Acquired absence of both cervix and uterus; Z53.20 Procedure and treatment not carried out because of patient's decision for unspecified reasons
CPT/HCPCS: 77080

== ENCOUNTER 2023-10-22 12:34 | Outpatient (AMB) | payer OTHER, SELFPAY ==
--- NOTE | 2023-10-22 12:59 | A.OFFVIS_ITS ---
Vital Signs 10/22/23 13:02 Height 5 ft 4 in Weight 160 lb 14.999 oz BMI 27.6 BP 151/67 H Blood Pressure Location Lt brachial Position Sitting Pulse 78 Intake Visit Reasons: Follow up GERD Intake Note: Sofía presents in the office as a follow up for GERD. CC: She states that she is still having the acid reflux. Allergies adhesive tape [ADHESIVE TAPE] Allergy (Intermediate, Verified 10/22/23 13:02) RASH-LOCALIZED latex Allergy (Verified 10/22/23 13:02) Rash HPI HPI Follow up GERD: Details: Assessment & Plan (1) GERD (gastroesophageal reflux disease): Code(s): K21.9 - Gastro-esophageal reflux disease without esophagitis Plan: Japanese # [employer] We review her ultrasound and labs and her fatty liver appears to be stable. I continue to educate her that weight control glucose control and avoidance of alcohol on the 3 most important factors to controlling her fatty liver and keeping her liver healthy. She continues on her famotidine 10mg bid and her simethicone. She has been moving her bowels well w/o medication. ROV 6 mos (2) ALMENDAREZ (nonalcoholic steatohepatitis): Comment: BASELINE LABS: 09/2019 AST/ALT 27/36 with the remainder normal, autoimmune workup is negative, ferritin is normal at 32 02/03/19. JUAN Screen Negative Anti-Mitochondrial Ab Negative Anti-Smooth Muscle Ab <20 Hep Bs Antigen NEGATIVE Hepatitis C Ab (EIA) NONREACTIVE HIV 1&2 Antigen & Ab NONREACTIVE CURRENT LABS 01/26/23. Hemoglobin A1c % 7.6 Total Bilirubin 0.6 AST 29 ALT 44 H Alkaline Phosphatase 72 Alpha Fetoprotein 1.2 ULTRASOUND OF THE ABDOMEN 12/19/21? FINDINGS: PANCREAS: Visualized head and body of the pancreas is homogeneous in echotexture. The tail and rest of the body pancreas is not visualized. LIVER: The right hepatic lobe measures 17.2 cm in length and slightly enlarged in size. The liver contour is normal. The liver is mildly echogenic. There is no intrahepatic biliary duct dilatation seen. GALLBLADDER: The gallbladder wall thickness is 0.19 cm. The gallbladder is physiologically distended without evidence of stones, sludge, polyps, wall thickening or pericholecystic fluid. COMMON BILE DUCT: Normal in caliber measuring 0.6 cm in diameter. RIGHT KIDNEY: Normal. No hydronephrosis. No renal calculi or focal parenchymal lesions. The kidney measures 11.4 cm in maximum dimension. FREE FLUID: None. US/US abdomen limited IMPRESSION: Mild right hepatomegaly with mild hepatic steatosis. No focal lesion seen. Visualized portions of the pancreas appears unremarkable. ? Code(s): K75.81 - Nonalcoholic steatohepatitis (ALMENDAREZ) (3) Chronic idiopathic constipation: Code(s): K59.04 - Chronic idiopathic constipation (4) Abdominal bloating: Code(s): R14.0 - Abdominal distension (gaseous) Medications: Refilled simethicone 180 mg PO QID 120 caps 6RF R14.0 - Abdominal distension (gaseous) famotidine (Acid [employer] (famotidine)) 10 mg PO BID 60 ea 6RF K21.9 - Gastro- esophageal reflux disease without esophagitis ? TODAY'S VISIT She continues to do well with her famotidine and simethicone. Due for labs and US for her ALMENDAREZ. She is due for colonoscopy, we had tried ordering it 2 years ago but no one every called her. She has BART and restrictive lung disease and sees Dr. Schreiber, and she denies cardiac problems. There are no prior problems with anesthesia or sedation. No ID problems. She has a PHX of TA. ROV 6 mos. PFSH Medical History (Updated 11/19/23 @ 17:18 by SONJA Brumfield) Dyspnea Chronic restrictive lung disease DILSHAD (stress urinary incontinence, female) Recurrent UTI (urinary tract infection) Surgical History H/O esophagogastroduodenoscopy H/O colonoscopy History of bladder suspension procedure S/P CABG x 3 History of tubal ligation History of hysterectomy Family History Father Alcohol abuse Cirrhosis Mother Cervical cancer Paternal Grandfather Stomach cancer Social History Household Members: Children Alcohol intake: never Patient Tobacco Use Status: Never used Tobacco Advance Directives Date on File: 05/14/23 Current occupational status: retired Current occupation: lt handed Review of Systems Const Denies fatigue, Denies fever(s), Denies night sweats, Denies poor appetite and Denies weight loss Eyes Details: glasses Reports requires corrective lenses ENT Denies dental pain, Denies dysphagia, Denies hearing loss, Denies mouth pain, Denies odynophagia, Denies throat swelling, Denies tongue swelling and Reports other (Dentition adequate) Card Reports dyspnea on exertion Resp Reports dyspnea on exertion GI Details: Denies abdominal pain, Denies melena, Denies bloating, Denies hematochezia, Denies constipation, Denies GI cramping, Denies dysphagia, Denies excessive flatus, Denies early satiety, Reports heartburn, Denies diarrhea, Denies nausea, Denies odynophagia, Denies vomiting and Denies hematemesis Skin/Breast Denies pruritus, Denies lesions, Denies rash and Denies jaundice Endo Denies fatigue Aller/Immun Denies throat swelling and Denies tongue swelling Physical Exam Vital Signs: Last Vital Signs Pulse 78 10/22/23 13:02 BP 151/67 H 10/22/23 13:02 BMI result Body Mass Index 27.6 Results Reviewed Results Reviewed: Laboratory Tests 06/20/23 13:03 Estimated GFR > 60 Total Bilirubin 0.3 AST 26 ALT 27 Alkaline Phosphatase 90 TSH 2.11 Assessment & Plan Assessment & Plan (1) ALMENDAREZ (nonalcoholic steatohepatitis): Comment: BASELINE LABS: 09/2019 AST/ALT 27/36 with the remainder normal, autoimmune wo rkup is negative, ferritin is normal at 32 02/03/19. JUAN Screen Negative Anti-Mitochondrial Ab Negative Anti-Smooth Muscle Ab <20 Hep Bs Antigen NEGATIVE Hepatitis C Ab (EIA) NONREACTIVE HIV 1&2 Antigen & Ab NONREACTIVE CURRENT LABS 01/26/23. Hemoglobin A1c % 7.6 Total Bilirubin 0.6 AST 29 ALT 44 H Alkaline Phosphatase 72 Alpha Fetoprotein 1.2 ULTRASOUND OF THE ABDOMEN 12/19/21? FINDINGS: PANCREAS: Visualized head and body of the pancreas is homogeneous in echotexture. The tail and rest of the body pancreas is not visualized. LIVER: The right hepatic lobe measures 17.2 cm in length and slightly enlarged in size. The liver contour is normal. The liver is mildly echogenic. There is no intrahepatic biliary duct dilatation seen. GALLBLADDER: The gallbladder wall thickness is 0.19 cm. The gallbladder is physiologically distended without evidence of stones, sludge, polyps, wall thickening or pericholecystic fluid. COMMON BILE DUCT: Normal in caliber measuring 0.6 cm in diameter. RIGHT KIDNEY: Normal. No hydronephrosis. No renal calculi or focal parenchymal lesions. The kidney measures 11.4 cm in maximum dimension. FREE FLUID: None. US/US abdomen limited IMPRESSION: Mild right hepatomegaly with mild hepatic steatosis. No focal lesion seen. Visualized portions of the pancreas appears unremarkable. ? Code(s): K75.81 - Nonalcoholic steatohepatitis (ALMENDAREZ) Category: Medical (2) Tubular adenoma of colon: Comment: Last scoped 2018 repeat in 5 years aeb Code(s): D12.6 - Benign neoplasm of colon, unspecified Category: Medical (3) Abdominal bloating: Code(s): R14.0 - Abdominal distension (gaseous) Category: Medical (4) GERD (gastroesophageal reflux disease): Code(s): K21.9 - Gastro-esophageal reflux disease without esophagitis Category: Medical (5) Obstructive sleep apnea: Comment: AHI 14/hr, REM AHI 43.8/hr, O2 esvin 78% Code(s): G47.33 - Obstructive sleep apnea (adult) (pediatric) Category: Medical (6) Pre-op examination: Code(s): Z01.818 - Encounter for other preprocedural examination Category: Medical Plan She continues to do well with her famotidine and simethicone. Due for labs and US for her ALMENDAREZ. She is due for colonoscopy, we had tried ordering it 2 years ago but no one every called her. She has BART and restrictive lung disease and sees Dr. Schreiber, and she denies cardiac problems. There are no prior problems with anesthesia or sedation. No ID problems. She has a PHX of TA. Orders: Orders Comprehensive Met. Panel 10/22/23 K75.81 - Nonalcoholic steatohepatitis (ALMENDAREZ) Complete Blood Count Auto Diff 10/22/23 K75.81 - Nonalcoholic steatohepatitis (ALMENDAREZ) Colonoscopy - GI Use Only 10/22/23 D12.6 - Benign neoplasm of colon, unspecified US abdomen comp w elastography 10/22/23 K75.81 - Nonalcoholic steatohepatitis (ALMENDAREZ) Medications: New peg 3350-electrolytes 236-22.74-6.74 -5.86 gram (Golytely) until fecal effluent is clear; do not exceed a total volume of 2,000 mL 240 mL PO Q10M 4,000 mL 0RF 1 day Z12.11 - Encounter for screening for malignant neoplasm of colon bisacodyl (Dulcolax (bisacodyl)) 10 mg (2 x 5 mg) PO BEDTIME 4 tabs 0RF 2 days Refilled simethicone 180 mg PO QID 120 caps 6RF R14.0 - Abdominal distension (gaseous) famotidine 10 mg PO BID 60 tabs 6RF K21.9 - Gastro-esophageal reflux disease without esophagitis Coding Level of Care Code Est Pt Level 4 (26029) Diagnoses ALMENDAREZ (nonalcoholic steatohepatitis) K75.81 Tubular adenoma of colon D12.6 Abdominal bloating R14.0 GERD (gastroesophageal reflux disease) K21.9 Obstructive sleep apnea G47.33 Pre-op examination Z01.818
[2023-10-22 13:02] VITALS: BP 151/67; PULSE 78; BMI 27.6
== END 2023-10-22 13:38 | disposition home or self-care (01) ==
PROVIDERS: PCP Family Medicine; Visit Provider Nurse Practitioner
DX: K75.81 Nonalcoholic steatohepatitis (NASH) (principal); D12.6 Benign neoplasm of colon, unspecified; R14.0 Abdominal distension (gaseous); K21.9 Gastro-esophageal reflux disease without esophagitis; G47.33 Obstructive sleep apnea (adult) (pediatric); Z01.818 Encounter for other preprocedural examination
CPT/HCPCS: 99214

== ENCOUNTER → 2023-10-22 12:34 | Outpatient (BNVA) | payer OTHER, SELFPAY | PROVIDERS: PCP Family Medicine; Visit Provider Nurse Practitioner | DX: Z01.818 Encounter for other preprocedural examination (principal); K75.81 Nonalcoholic steatohepatitis (NASH); K21.9 Gastro-esophageal reflux disease without esophagitis; D12.6 Benign neoplasm of colon, unspecified; R14.0 Abdominal distension (gaseous); G47.33 Obstructive sleep apnea (adult) (pediatric) | CPT/HCPCS: 99212 ==

== ENCOUNTER 2023-11-29 09:52 | Outpatient (REF) | payer OTHER, SELFPAY ==
--- NOTE | ~2023-11-29 | MM_ITS ---
EXAMINATION: MM SCREENING DIGITAL BREAST TOMOSYNTHESIS, BILATERAL CLINICAL INFORMATION: Screening. Asymptomatic. COMPARISON: Mammography: This study is compared with prior exams dating back to TECHNIQUE: Digital breast tomosynthesis is performed in both the craniocaudal and mediolateral oblique views along with computer-aided detection (CAD). Synthesized 2D images are generated from the tomosynthesis. FINDINGS: The breasts are almost entirely fatty (ACR BI-RADS breast composition Category a). There are no significant masses, abnormal calcifications, or other abnormalities. MM/MM tomosynthesis screening BI IMPRESSION: No mammographic evidence of malignancy. ASSESSMENT: BI-RADS BI-RADS 1 - Negative RECOMMENDATION: Routine annual mammography screening. 1 year F/U This examination should not preclude the clinical evaluation of a suspicious palpable abnormality. This patient's information was entered into a reminder system with a target due date for their next mammogram.
== END 2023-11-29 09:53 | disposition home or self-care (01) ==
LOC: HO.MAMMO 09:52
PROVIDERS: PCP Family Medicine; Visit Provider Family Medicine
DX: Z12.31 Encounter for screening mammogram for malignant neoplasm of breast (principal)
CPT/HCPCS: 77063; 77067

== ENCOUNTER → 2023-11-29 10:15 | Outpatient (BNV) | payer OTHER, SELFPAY | PROVIDERS: PCP Family Medicine; Visit Provider Radiology Diagnostic Radiology | DX: Z12.31 Encounter for screening mammogram for malignant neoplasm of breast (principal) | CPT/HCPCS: 77063; 77067 ==

== ENCOUNTER 2024-02-28 19:12 | Outpatient (REF) | payer OTHER, SELFPAY | END 2024-02-28 19:13 | disposition home or self-care (01) | LOC: HO.HHCLNP 19:12 | PROVIDERS: Visit Provider General Practice | DX: N39.0 Urinary tract infection, site not specified (principal) | CPT/HCPCS: 87086; 87088; 87186 ==

== ENCOUNTER 2024-03-26 13:32 | Outpatient (AMB) | payer OTHER, SELFPAY ==
--- NOTE | 2024-03-26 13:42 | A.OFFVIS_ITS ---
Vital Signs 03/26/24 13:43 Height 5 ft 4 in Weight 160 lb BMI 27.5 BP 110/60 Blood Pressure Location Lt brachial Position Sitting Pulse 72 Pulse Source Pulse Oximeter Pulse Oximetry (%) 97 Oxygen Delivery Method Room Air Intake Visit Reasons: shortness of breath Community Relations Director Required: No Allergies adhesive tape [ADHESIVE TAPE] Allergy (Intermediate, Verified 03/26/24 13:45) RASH-LOCALIZED latex Allergy (Verified 03/26/24 13:45) Rash HPI Comments Details: 01/21/2023 the patient is here for a pulmonary follow-up visit. Overall the patient has been doing well. Denies any respiratory complaints. She denies any shortness of breath or dyspnea or cough. The patient is not using any inhalers. We did review her recent pulmonary function studies demonstrating again a mild restrictive ventilatory defect consistent mild restrictive lung disease. Unchanged from last year. We did also review her chest x-ray that she had demonstrating sternotomy wires no significant parenchymal disease that we can appreciate. Clinically the patient is feeling well. No need to do additional imaging testing. Although if the patient develops any worsening respiratory symptoms or complaints will request additional imaging studies at that time. Otherwise the patient will return in a year's time with a chest x-ray. 03/26/2024 the patient is here for a pulmonary follow-up visit. Overall the patient has been doing well. He is having more allergy symptoms at this time though with a fall. Having cough. Nonproductive in nature moderate severity. Will make sure that she has her nasal therapy and also allergy therapy to be able to continue to treat her symptoms. The patient has has not had any recent chest imaging back in 10/08/2022 she had an x-ray without any acute disease. Although she did have a bad fall back in May where she had multiple imaging studies. She does mention that she did have a pelvis fracture that time. She is healing from that condition. Will continue with current respiratory therapy follow-up in a year's time. If the patient develops any worsening symptoms pr ior to that she would call for earlier assessment. [facility] [place] Medical History (Updated 03/29/24 @ 20:13 by Speedy Schreiber MD) Dyspnea Chronic restrictive lung disease DILSHAD (stress urinary incontinence, female) Recurrent UTI (urinary tract infection) Surgical History H/O esophagogastroduodenoscopy H/O colonoscopy History of bladder suspension procedure S/P CABG x 3 History of tubal ligation History of hysterectomy Family History Father Alcohol abuse Cirrhosis Mother Cervical cancer Paternal Grandfather Stomach cancer Social History Household Members: Children Alcohol intake: never Patient Tobacco Use Status: Never used Tobacco Advance Directives Date on File: 05/14/23 Current occupational status: retired Current occupation: lt handed Review of Systems Const Denies fatigue, Denies fever(s), Denies night sweats, Denies poor appetite and Denies weight loss ENT Reports Normal hearing present, Denies dental pain, Denies hearing loss, Denies mouth pain, Denies throat swelling, Denies tongue swelling and Reports other (Dentition adequate) Card Reports no additional complaints and Denies dyspnea on exertion Resp Denies cough, Denies dyspnea on exertion and Denies wheezing GI Denies abdominal pain Musc Reports no additional complaints Skin/Breast Denies rash Neuro Reports Normal hearing present and Denies Abnormal speech present Endo Denies fatigue Aller/Immun Denies throat swelling, Denies tongue swelling and Denies wheezing Physical Exam Vital Signs: Last Vital Signs Pulse 72 03/26/24 13:43 BP 110/60 03/26/24 13:43 Pulse Ox 97 03/26/24 13:43 Oxygen Delivery Method Room Air 03/26/24 13:43 BMI result Body Mass Index 27.5 Const General: cooperative Orientation/consciousness: oriented to person, oriented to place and oriented to time HEENT Head: Yes normocephalic and Yes atraumatic Eyes General: appearance normal, both eyes and all related structures Pupils: Equal, round and reactive pupils present Neck Neck: Yes normal visual inspection Resp Effort & Inspection: normal respiratory effort and able to speak in complete sentences Auscultation: diminished lung sounds Cardio Rate: regular rate Rhythm: regular rhythm Heart sounds: Normal, physiologic split S2 sound present GI Palpation (GI): Soft to palpation Skin General skin exam: no rashes or lesions noted, turgor normal, skin not dry, no jaundice, No spider nevi and no striae Rashes: no rashes Nails: normal Neuro General: oriented to person, oriented to place and oriented to time Cranial nerves: Yes Equal, round and reactive pupils present and Yes Normal hearing present Speech: No Abnormal speech present Extrem General: Yes normal to inspection, No clubbing, No cyanosis and No edema Psych Appearance: grossly normal Assessment & Plan Assessment & Plan (1) Chronic restrictive lung disease: Code(s): J98.4 - Other disorders of lung Category: Medical (2) Dyspnea: Code(s): R06.00 - Dyspnea, unspecified Category: Medical Qualifiers: Dyspnea type: dyspnea on exertion Qualified Code(s): R06.09 - Other forms of dyspnea Plan Chest x-ray start claritin start Singulair GILMAR as needed follow-up in 8-12 months Orders: Orders XR chest 2V 03/26/24 R06.00 - Dyspnea, unspecified Medications: New albuterol sulfate 90 mcg/actuation 2 inhalations inhalation Q6H PRN 18 grams 12RF shortness of breath or wheezing 30 days J44.9 - Chronic obstructive pulmonary disease, unspecified loratadine (Claritin) 10 mg PO DAILY 30 tabs 11RF 30 days J30.2 - Other seasonal allergic rhinitis, J45.909 - Unspecified asthma, uncomplicated fluticasone propionate 50 mcg/actuation 2 sprays intranasal DAILY 15.8 mL 11RF 30 days J31.0 - Chronic rhinitis Changed From montelukast 10 mg PO BEDTIME To montelukast 10 mg PO BEDTIME 30 tabs 8RF 30 days Coding Level of Care Code Est Pt Level 4 (53399) Diagnoses Chronic restrictive lung disease J98.4 Dyspnea on exertion R06.09 Dyspnea type: dyspnea on exertion Time Spent (min) 16
[2024-03-26 13:43] VITALS: BP 110/60; PULSE 72; O2SAT 97; BMI 27.5
== END 2024-03-26 13:59 | disposition home or self-care (01) ==
PROVIDERS: PCP Family Medicine; Visit Provider Hospitalist
DX: J98.4 Other disorders of lung (principal); R06.09 Other forms of dyspnea
CPT/HCPCS: 99214

== ENCOUNTER → 2024-03-26 13:32 | Outpatient (BNVA) | payer OTHER, SELFPAY | PROVIDERS: PCP Family Medicine; Visit Provider Hospitalist | DX: J98.4 Other disorders of lung (principal); R06.09 Other forms of dyspnea; J45.909 Unspecified asthma, uncomplicated; J31.0 Chronic rhinitis | CPT/HCPCS: 99212 ==

== ENCOUNTER 2024-04-29 11:49 | Outpatient (AMB) | payer OTHER, SELFPAY ==
--- NOTE | 2024-04-29 11:54 | HO.NEPHOV_ITS ---
Vital Signs 04/29/24 11:56 Height 5 ft 4 in Weight 165 lb 8 oz BMI 28.4 BP 120/50 L Blood Pressure Location Rt brachial Position Sitting Pulse 78 Pulse Source Pulse Oximeter Pulse Oximetry (%) 97 Oxygen Delivery Method Room Air Intake Visit Reasons: f/u- LVM Babbitt Spinner Required: Yes Babbitt Spinner Language: Conference Center Manager Services: Babbitt Spinner Present Babbitt Spinner Name: [place] Marsh [phone] Accompanied by: Self / Same As Patient Allergies adhesive tape [ADHESIVE TAPE] Allergy (Intermediate, Verified 04/29/24 11:58) RASH-LOCALIZED latex Allergy (Verified 04/29/24 11:58) Rash HPI Comments Details: I had the privilege of seeing Sofía in follow-up of her proteinuria and hypertension. She has a diabetic and is on multiple medications but not on SGLT2 inhibitor. Her blood sugar control has been reasonable. Blood pressure is at goal. She is on losartan. She does not take nonsteroidal anti- inflammatories. She has no chest pain, dizziness, palpitation or urinary symptoms. She is known to have proteinuria. She has not had any blood work or urine studies lately. Her renal functions have been stable. She claims to be compliant with her medications. She feels well. [facility] Medical History (Updated 04/29/24 @ 14:18 by Dylan León MD) Dyspnea Chronic restrictive lung disease DILSHAD (stress urinary incontinence, female) Recurrent UTI (urinary tract infection) Surgical History H/O esophagogastroduodenoscopy H/O colonoscopy History of bladder suspension procedure S/P CABG x 3 History of tubal ligation History of hysterectomy Family History Father Alcohol abuse Cirrhosis Mother Cervical cancer Paternal Grandfather Stomach cancer Social History Household Members: Children Alcohol intake: never Patient Tobacco Use Status: Never used Tobacco Advance Directives Date on File: 05/14/23 Current occupational status: retired Current occupation: lt handed Review of Systems Const All systems reviewed & are unremarkable except as noted in HPI and below Physical Exam Vital Signs: Last Vital Signs Pulse 78 04/29/24 11:56 BP 120/50 L 04/29/24 11:56 Pulse Ox 97 04/29/24 11:56 Oxygen Delivery Method Room Air 04/29/24 11:56 BMI result Body Mass Index 28.4 Const General: comfortable and no acute distress Orientation/consciousness: patient oriented x3 HEENT Head: Yes normocephalic Mouth: Normal oral and palatal mucosa present Eyes EOM: EOMs intact bilaterally Neck Neck: Yes supple Resp Auscultation: clear to auscultation bilaterally Cardio Jugular venous distension: no JVD Rate: regular rate GI Palpation (GI): Soft to palpation Auscultation: normal bowel sounds General: Yes no CVA tenderness Back/Spine/Pelvis Back: no CVA tenderness Skin General skin exam: no rashes or lesions noted Neuro General: patient oriented x3 and moves all extremities Extrem General: Yes no pedal edema Results Reviewed Nephrology Results: No Data to Display Assessment & Plan Assessment & Plan (1) HTN (hypertension), benign: Code(s): I10 - Essential (primary) hypertension Category: Medical (2) Proteinuria due to type 2 diabetes mellitus: Code(s): E11.29 - Type 2 diabetes mellitus with other diabetic kidney complication; R80.9 - Proteinuria, unspecified Category: Medical Plan Sofía has longstanding diabetes mellitus and hypertension. She is on ARB. Her renal functions had been stable. She is on amlodipine which I plan to discontinue and maximize her losartan. I also intend to initiate her on SGLT2 inhibitor. I ordered follow-up blood work including hemoglobin A1c and urine studies for continued care. Answered all questions. Further management is pending evolving data. Orders: Orders Creatinine Today I10 - Essential (primary) hypertension Electrolytes Today I10 - Essential (primary) hypertension Blood Urea Nitrogen Today I10 - Essential (primary) hypertension Protein Creatinine Ratio, Ur Today I10 - Essential (primary) hypertension Microalbumin, Random (w Creat) Today I10 - Essential (primary) hypertension Hemoglobin A1c Today I10 - Essential (primary) hypertension Coding Level of Care Code Est Pt Level 4 (00609) Diagnoses HTN (hypertension), benign I10 Proteinuria due to type 2 diabetes mellitus E11.29; R80.9
[2024-04-29 11:56] VITALS: BP 120/50; PULSE 78; O2SAT 97; BMI 28.4
== END 2024-04-29 12:39 | disposition home or self-care (01) ==
PROVIDERS: PCP Family Medicine; Visit Provider Internal Medicine Nephrology
DX: I10 Essential (primary) hypertension (principal); E11.29 Type 2 diabetes mellitus with other diabetic kidney complication; R80.9 Proteinuria, unspecified
CPT/HCPCS: 99214

== ENCOUNTER → 2024-04-29 11:49 | Outpatient (BNVA) | payer OTHER, SELFPAY | PROVIDERS: PCP Family Medicine; Visit Provider Internal Medicine Nephrology | DX: I10 Essential (primary) hypertension (principal); E11.29 Type 2 diabetes mellitus with other diabetic kidney complication; R80.9 Proteinuria, unspecified; Z79.899 Other long term (current) drug therapy | CPT/HCPCS: 99212 ==

== ENCOUNTER 2024-05-23 09:13 | Outpatient (REF) | payer OTHER, SELFPAY ==
[2024-05-23 10:11] LABS: B Type Natriuretic Peptide 13 pg/mL (<100)
[2024-05-23 10:15] LABS: Estimated Average Glucose 212 mg/dL; Hemoglobin A1C 221.6444 umol/L; Total Hemoglobin (HGBA1C) 2961.4399 umol/L
[2024-05-23 10:19] LABS: Anion Gap 14 (12-20); Blood Urea Nitrogen 12 mg/dL (9-16); Calcium 9.9 mg/dL (8.4-10.2); Carbon Dioxide 25 mmol/L (22-29); Chloride 104 mmol/L (96-108); Estimated Glomerular Filt Rate > 60; Glucose Random 209 mg/dL (60-115); Sodium 139 mmol/L (135-145)
[2024-05-23 10:22] LABS: Creatinine Urine 87.18 mg/dL; Microalbum/Creatinine Ratio Ur 173.2 ug/mg cr (<30); Protein/Creatinine Ratio, Ur 0.44 (<0.2); Total Protein Urine Random 38 mg/dL (<12)
== END 2024-05-23 09:14 | disposition home or self-care (01) ==
LOC: HO.LAB 09:13
PROVIDERS: Internal Medicine Nephrology; PCP Family Medicine; Visit Provider Internal Medicine Cardiovascular Disease
DX: I89.0 Lymphedema, not elsewhere classified (principal); I10 Essential (primary) hypertension; Z13.1 Encounter for screening for diabetes mellitus
CPT/HCPCS: 36415; 80048; 82043; 82570; 83036; 83880; 84156; 84520

== ENCOUNTER 2024-05-25 16:55 | Outpatient (REF) | payer OTHER, SELFPAY | END 2024-05-25 16:56 | disposition home or self-care (01) | LOC: HO.HHCLNP 16:55 | PROVIDERS: Visit Provider Family Medicine | DX: N39.0 Urinary tract infection, site not specified (principal); R30.0 Dysuria; E78.5 Hyperlipidemia, unspecified | CPT/HCPCS: 87086; 87147 ==

== ENCOUNTER 2024-09-02 13:45 | Outpatient (AMB) | payer OTHER, SELFPAY ==
--- NOTE | 2024-09-02 13:57 | HO.NEPHOV ---
Vital Signs 09/02/24 13:58 Height 5 ft 4 in Weight 165 lb 8 oz BMI 28.4 BP 120/60 Blood Pressure Location Rt brachial Position Sitting Pulse 74 Pulse Source Pulse Oximeter Pulse Oximetry (%) 98 Oxygen Delivery Method Room Air Intake Visit Reasons: Hypertension/ Conf Porcelain Enamel Laborer Required: Yes Porcelain Enamel Laborer Language: Concrete Crusher Loader Operator Services: Porcelain Enamel Laborer Offered & Declined ([facility] [place] Porcelain Enamel Laborer services refused- Pt accompanied by HORSE AND WAGON DRIVER (N[place]rata)) Accompanied by: Self / Same As Patient Allergies adhesive tape [ADHESIVE TAPE] Allergy (Intermediate, Verified 09/02/24 13:57) RASH-LOCALIZED latex Allergy (Verified 09/02/24 13:57) Rash HPI Comments Details: I had the privilege of seeing Sofía in follow-up of her proteinuria and hypertension. She has a diabetic and is on multiple medications but not on SGLT2 inhibitor. Her blood sugar control has been reasonable. Blood pressure is at goal. She is on losartan. She does not take nonsteroidal anti-inflammatories. She has no chest pain, dizziness, palpitation or urinary symptoms. She is known to have proteinuria. She has not had any blood work or urine studies lately. Her renal functions have been stable. She claims to be compliant with her medications. She feels well. [facility] Medical History (Updated 04/29/24 @ 14:18 by Dylan León MD) Dyspnea Chronic restrictive lung disease DILSHAD (stress urinary incontinence, female) Recurrent UTI (urinary tract infection) Surgical History H/O esophagogastroduodenoscopy H/O colonoscopy History of bladder suspension procedure S/P CABG x 3 History of tubal ligation History of hysterectomy Family History Father Alcohol abuse Cirrhosis Mother Cervical cancer Paternal Grandfather Stomach cancer Social History Household Members: Children Alcohol intake: never Patient Tobacco Use Status: Never used Tobacco Advance Directives Date on File: 05/14/23 Current occupational status: retired Current occupation: lt handed Review of Systems Const All systems reviewed & are unremarkable except as noted in HPI and below Physical Exam Vital Signs: Last Vital Signs Pulse 74 09/02/24 13:58 BP 120/60 09/02/24 13:58 Pulse Ox 98 09/02/24 13:58 Oxygen Delivery Method Room Air 09/02/24 13:58 BMI result Body Mass Index 28.4 Const General: comfortable and no acute distress Orientation/consciousness: patient oriented x3 HEENT Head: Yes normocephalic Mouth: Normal oral and palatal mucosa present Eyes EOM: EOMs intact bilaterally Neck Neck: Yes supple Resp Auscultation: clear to auscultation bilaterally Cardio Jugular venous distension: no JVD Rate: regular rate GI Palpation (GI): Soft to palpation Auscultation: normal bowel sounds General: Yes no CVA tenderness Back/Spine/Pelvis Back: no CVA tenderness Skin General skin exam: no rashes or lesions noted Neuro General: patient oriented x3 and moves all extremities Extrem General: Yes no pedal edema Results Reviewed Nephrology Results: Sodium 139 mmol/L (135-145) 05/23/24 Potassium 4.0 mmol/L (3.3-5.1) 05/23/24 Chloride 104 mmol/L (96-108) 05/23/24 Carbon Dioxide 25 mmol/L (22-29) 05/23/24 BUN 12 mg/dL (9-16) 05/23/24 Creatinine 0.74 mg/dL (0.5-1.4) 05/23/24 Calcium 9.9 mg/dL (8.4-10.2) 05/23/24 Urine Creatinine 87.18 mg/dL 05/23/24 Protein/Creatinin Ratio 0.44 (<0.2) H 05/23/24 Assessment & Plan Assessment & Plan (1) Proteinuria due to type 2 diabetes mellitus: Code(s): E11.29 - Type 2 diabetes mellitus with other diabetic kidney complication; R80.9 - Proteinuria, unspecified Category: Medical (2) HTN (hypertension), benign: Code(s): I10 - Essential (primary) hypertension Category: Medical Plan Sofía has longstanding diabetes mellitus and hypertension. She is on ARB. Her renal functions had been stable. She is on amlodipine which I plan to discontinue and maximize her losartan. I also intend to initiate her on SGLT2 inhibitor. I ordered follow-up blood work including hemoglobin A1c and urine studies for continued care. Answered all questions. Further management is pending evolving data. Orders: Orders Protein Creatinine Ratio, Ur Today E11.29 - Type 2 diabetes mellitus with other diabetic kidney complication, R80.9 - Proteinuria, unspecified Hemoglobin A1c Today E11. - Type 2 diabetes mellitus with other diabetic kidney complication, R80.9 - Proteinuria, unspecified Creatinine Today E11. - Type 2 diabetes mellitus with other diabetic kidney complication, R80.9 - Proteinuria, unspecified Blood Urea Nitrogen Today E11. - Type 2 diabetes mellitus with other diabetic kidney complication, R80.9 - Proteinuria, unspecified Electrolytes Today E11. - Type 2 diabetes mellitus with other diabetic kidney complication, R80.9 - Proteinuria, unspecified Coding Level of Care Code Est Pt Level 4 (90069) Diagnoses Proteinuria due to type 2 diabetes mellitus ; R80.9 HTN (hypertension), benign I10
[2024-09-02 13:58] VITALS: BP 120/60; PULSE 74; O2SAT 98; BMI 28.4
--- OUTSIDE RECORDS SUMMARY | 2024-09-02 15:08 | XMS_ITS | Encounter Summary ---
Author Organization [employer] Address [address] [facility] [address] [place] [address] Care Team Providers Care Big Data Admin Name Role Phone Kera Maria MD Primary Care Provider [phone] Encounter Details Date Type Department Care Team (Late st Contact Info) Description 05/01/2023 Orders Only [facility] [address] [place], [place] [phone] Teresa Sotomayor MD [address] [place] [address] Social History Tobacco Use Types Packs/Day Years Used Date Smoking Tobacco: Never Smokeless Tobacco: Never Comments Unknown Sex and Gender Information Value Date Recorded Sex Assigned at Female 05/21/2022 10:20 AM EDT Legal Sex Female 10:20 AM EDT Gender Identity Female 05/21/2022 10:20 AM EDT Sexual Orientation Straight 05/21/2022 10 :20 AM EDT documented as of this encounter Plan of Treatment Upcoming Encounters Date Type Department Care Team (Late st Contact Info) Description 09/08/2024 10:30 AM EST Office Visit [facility] [address] [place] [phone] Kera Maria MD [address] [place], [place] [phone] documented as of this encounter Procedures Procedure Name Priority Date/Time Associated Diagnosis Comments MR PELVIS WO CONTRAST Routine 05/13/2023 6:07 PM EDT MR CERVICAL SPINE WO CONTRAST Routine 05/13/2023 6:[address] HEAD WO CONTRAST Routine 05/13/2023 6 :07 PM EDT XR HIP RIGHT WITH PELVIS 1 VIEW Routine 05/13/2023 3:58 PM EDT documented in this encounter Results * MR Cervical Spine w/o Contrast (05/13/2023 6:07 PM EDT) Anatomical Region Laterality Modality Spine, C-spine Magnetic Resonan ce 05/13/2023 6:07 PM EDT Narrative 05/13/2023 7:18 PM EDT ? [facility] ?[address] ?[place] [address] ? CT Scan Report ? Signed ? Patient: David Momin,Sofía ?MR#: ?? [id number] ? : 1950 ?Acct:[id number] ? Age/Sex: 72 / F ?ADM Date: 05/13/23 ? Loc: HO.ED ? Attending Dr: ? Ordering Physician: Tammi Andrew ?? Date of Service: 05/13/23 ?? Procedure(s): CT cervical spine wo IV con ?? Accession Number(s): [id number] ? cc: Tammi Andrew; Kera Maria MD ? EXAMINATION: ?? CT CERVICAL SPINE WITHOUT CONTRAST ? CLINICAL INFORMATION: ?? Fall. Pain. ? COMPARISON: ?? None available. ? TECHNIQUE: ?? Axial images through the cervical spine without contrast. Sagittal and ?? coronal reconstructions on the technologist's workstation were ?? performed. ? This CT examination was performed using dose optimization techniques as ?? appropriate, variously including the following: ?? *Automated exposure control. ?? *Adjustment of mA and/or kV according to patient size (this includes ?? techniques or standardized protocols for targeted exams where dose is ?? matched to indication/reason for exam; i.e. extremities or head). ?? *Use of iterative reconstruction technique. ? DLP: ?? 393 mGy-cm ? FINDINGS: ?? Bone alignment is normal. No fracture or dislocation. Degenerative ?? spondylosis at C2-C3 and C4-C5 and C5-C6. Mild disc space narrowing at ?? C5-C6. Degenerative changes at the C1 dens articulation. Bilateral ?? multilevel facet arthritis. Prevertebral soft tissues are normal. ?? Visualized lung apices. Bilateral carotid calcification. ? CT/CT cervical spine wo IV con ?? IMPRESSION: ?? Degenerative changes. No fracture or dislocation. ? Fleischner guidelines were followed. ? Dictated By: ?Halley Noonan MD ? Signed By: ?<Electronically signed by Halley Noonan MD in OV> ? 05/13/235 ? DD/ 1807 ? TD/TT: ? Cold Saw Operator: SUJ ? Procedure Note Donotuseinterpreter, Image - 05/13/[address] [place] [address] [address] Scan Report Signed Patient: Kaylee Penny#: [id number] : 1950cct:[id number] Age/Sex: 72 / FADM Date: 05/13/23 Loc: HO.ED Attending Dr: Ordering Physician: Tammi Andrew Date of Service: 05/13/23 Procedure(s): CT cervical spine wo IV con Accession Number(s): [id number] cc: Tammi Andrew; Kera Maria MD EXAMINATION: CT CERVICAL SPINE WITHOUT CONTRAST CLINICAL INFORMATION: Fall. Pain. COMPARISON: None available. TECHNIQUE: Axial images through the cervical spine without contrast. Sagittal and coronal reconstructions on the technologist's workstation were performed. This CT examination was performed using dose optimization techniques as appropriate, variously including the following: *Automated exposure control. *Adjustment of mA and/or kV according to patient size (this includes techniques or standardized protocols for targeted exams where dose is matched to indication/reason for exam; i.e. extremities or head). *Use of iterative reconstruction technique. DLP: 393 mGy-cm FINDINGS: Bone alignment is normal. No fracture or dislocation. Degenerative spondylosis at C2-C3 and C4-C5 and C5-C6. Mild disc space narrowing at C5-C6. Degenerative changes at the C1 dens articulation. Bilateral multilevel facet arthritis. Prevertebral soft tissues are normal. Visualized lung apices. Bilateral carotid calcification. CT/CT cervical spine wo IV con IMPRESSION: Degenerative changes. No fracture or dislocation. Fleischner guidelines were followed. Dictated By: Halley Noonan MD Signed By: <Electronically signed by Halley Noonan MD in OV> 05/13/231914 DD/ 06 TD/TT: Cold Saw Operator: ELMO [facility] External Provider IMG MRI PROCEDURES Edited Result - Final * MR Pelvis w/o Contrast (05/13/2023 6:07 PM EDT) Anatomical Region Laterality Modality Body, Pelvis Magnetic Resonan ce 05/13/2023 6:07 PM EDT Narrative 05/13/2023 7:01 PM EDT ? [facility] ?[address] ?[place] [address] ? CT Scan Report ? Signed ? Patient: Sofía Penny ?MR#: ?? [id number] ? : 1950 ?Acct:[id number] ? Age/Sex: 72 / F ?ADM Date: 05/13/23 ? Loc: HO.ED ? Attending Dr: ? Ordering Physician: Tammi Andrew ?? Date of Service: 05/13/23 ?? Procedure(s): CT pelvis wo IV con ?? Accession Number(s): [id number] ? cc: Tammi Andrew; Kera Maria MD ? EXAMINATION: ?? CT PELVIS WITHOUT CONTRAST ? CLINICAL INFORMATION: ?? Right hip and inguinal pain status post fall ? COMPARISON: ?? Right hip and pelvis radiographs 05/13/2023 CT abdomen pelvis ?? 11/10/2018 ? TECHNIQUE: ?? Helical scanning was performed with submillimeter collimation through ?? the pelvis. Sagittal and coronal multiplanar 2-D reconstructions were ?? obtained. ? This CT examination was performed using dose optimization techniques as ?? appropriate, variously including the following: ?? *Automated exposure control ?? *Adjustment of mA and/or kV according to patient size (this includes ?? techniques or standardized protocols for targeted exams where dose is ?? matched to indication/reason for exam; i.e. extremities or head) ?? *Use of iterative reconstruction technique ? DLP: ?? 1430 mGy-cm ? FINDINGS: ?? There is a subtle nondisplaced fracture of the inferior pubic ramus on ?? the right not visible on plain film radiography. No fractures are seen. ?? The remainder of the pelvis appears normal. Ribs are unremarkable. ? The uterus is absent. The bladder is unremarkable. Some scattered ?? colonic diverticula are seen without diverticulitis. An abnormal pelvic ?? mass is not detected. No free intraperitoneal fluid. No pelvic ?? hematomas. ? CT/CT pelvis wo IV con ?? IMPRESSION: ? 1. ??There is a subtle nondisplaced fracture of the inferior pubic ramus ?? on the right not visible on plain film radiography. No other fractures ?? are seen. ?? 2. ??Scattered colonic diverticula without diverticulitis. ?? 3. ??The uterus is absent. ?? 4. ??No pelvic hematomas are seen. ? Dictated By: ?Reid Moreno MD ? Signed By: ?<Electronically signed by Reid Moreno MD in OV> ? 05/13/231857 ? DD/ 1807 ? TD/TT: ? Cold Saw Operator: SS ? Procedure Note [place], [place] - 05/13/[address] [place] [address] [address] Scan Report Signed Patient: Kaylee Penny#: [id number] : 1950cct:[id number] Age/Sex: 72 / FADM Date: 05/13/23 Loc: HO.ED Attending Dr: Ordering Physician: Tammi Andrew Date of Service: 05/13/23 Procedure(s): CT pelvis wo IV con Accession Number(s): [id number] cc: Tammi Andrew; Kera Maria MD EXAMINATION: CT PELVIS WITHOUT CONTRAST CLINICAL INFORMATION: Right hip and inguinal pain status post fall COMPARISON: Right hip and pelvis radiographs 05/13/2023 CT abdomen pelvis 11/10/2018 TECHNIQUE: Helical scanning was performed with submillimeter collimation through the pelvis. Sagittal and coronal multiplanar 2-D reconstructions were obtained. This CT examination was performed using dose optimization techniques as appropriate, variously including the following: *Automated exposure control *Adjustment of mA and/or kV according to patient size (this includes techniques or standardized protocols for targeted exams where dose is matched to indication/reason for exam; i.e. extremities or head) *Use of iterative reconstruction technique DLP: 1430 mGy-cm FINDINGS: There is a subtle nondisplaced fracture of the inferior pubic ramus on the right not visible on plain film radiography. No fractures are seen. The remainder of the pelvis appears normal. Ribs are unremarkable. The uterus is absent. The bladder is unremarkable. Some scattered colonic diverticula are seen without diverticulitis. An abnormal pelvic mass is not detected. No free intraperitoneal fluid. No pelvic hematomas. CT/CT pelvis wo IV con IMPRESSION: 1. There is a subtle nondisplaced fracture of the inferior pubic ramus on the right not visible on plain film radiography. No other fractures are seen. 2. Scattered colonic diverticula without diverticulitis. 3. The uterus is absent. 4. No pelvic hematomas are seen. Dictated By: Reid Moreno MD Signed By: <Electronically signed by Reid Moreno MD in OV> 05/13/23 1858 DD/ 1807 TD/TT: Cold Saw Operator: PRIYA [facility] External Provider IMG MRI PROCEDURES Edited Result - Final * CT Head w/o Contrast (05/13/2023 6:07 PM EDT) Anatomical Region Laterality Modality Head, Neck Computed Tomogra phy 05/13/2023 6:07 PM EDT Narrative 05/13/2023 6:59 PM EDT ? [facility] ?[address] ?[place] [address] ? CT Scan Report ? Signed ? Patient: David Momin,Sofía ?MR#: ?? [id number] ? : 1950 ?Acct:[id number] ? Age/Sex: 72 / F ?ADM Date: 10/23/23 ? Loc: HO.ED ? Attending Dr: ? Ordering Physician: Tammi Andrew ?? Date of Service: 05/13/23 ?? Procedure(s): CT head/brain wo IV con ?? Accession Number(s): [id number] ? cc: Tammi Andrew; Kera Maria MD ? EXAMINATION: ?? CT HEAD WITHOUT CONTRAST ? CLINICAL INFORMATION: ?? Fall. Headache. ? COMPARISON: ?? Previous head CT March 2013 ? TECHNIQUE: ?? Contiguous axial imaging was performed from the skull base to vertex ?? without intravenous administration of contrast. ? This CT examination was performed using dose optimization techniques as ?? appropriate, variously including the following: ?? *Automated exposure control ?? *Adjustment of mA and/or kV according to patient size (this includes ?? techniques or standardized protocols for targeted exams where dose is ?? matched to indication/reason for exam; i.e. extremities or head) ?? *Use of iterative reconstruction technique ? DLP: ?? 645 mGy-cm ? FINDINGS: ?? There is no evidence of an extra-axial collection. There is no evidence ?? of intra-axial or extra-axial hemorrhage. Ventricles and extra-axial ?? CSF spaces are slightly prominent mild generalized atrophy. There is ?? mild nonspecific periventricular white matter disease. No mass, mass ?? effect or infarct is seen. No skull fracture. Inflammatory changes in ?? the right maxillary and ethmoid sinus. ? CT/CT head/brain wo IV con ?? IMPRESSION: ?? No acute findings. Mild sinus disease. ? Dictated By: ?Halley Noonan MD ? Signed By: ?<Electronically signed by Halley Noonan MD in OV> ? 05/13/23 1856 ? DD/ 1807 ? TD/TT: ? Cold Saw Operator: SUJ ? Procedure Note [place], Nayely - 05/13/[address] [address] [address] Scan Report Signed Patient: Kaylee Penny#: [id number] : 1950cct:[id number] Age/Sex: 72 / FADM Date: 05/13/23 Loc: HO.ED Attending Dr: Ordering Physician: Tammi Andrew Date of Service: 05/13/23 Procedure(s): CT head/brain wo IV con Accession Number(s): [id number] cc: Tammi Andrew; Kera Maria MD EXAMINATION: CT HEAD WITHOUT CONTRAST CLINICAL INFORMATION: Fall. Headache. COMPARISON: Previous head CT March 2013 TECHNIQUE: Contiguous axial imaging was performed from the skull base to vertex without intravenous administration of contrast. This CT examination was performed using dose optimization techniques as appropriate, variously including the following: *Automated exposure control *Adjustment of mA and/or kV according to patient size (this includes techniques or standardized protocols for targeted exams where dose is matched to indication/reason for exam; i.e. extremities or head) *Use of iterative reconstruction technique DLP: 645 mGy-cm FINDINGS: There is no evidence of an extra-axial collection. There is no evidence of intra-axial or extra-axial hemorrhage. Ventricles and extra-axial CSF spaces are slightly prominent mild generalized atrophy. There is mild nonspecific periventricular white matter disease. No mass, mass effect or infarct is seen. No skull fracture. Inflammatory changes in the right maxillary and ethmoid sinus. CT/CT head/brain wo IV con IMPRESSION: No acute findings. Mild sinus disease. Dictated By: Halley Noonan MD Signed By: <Electronically signed by Halley Noonan MD in OV> 05/13/23 1856 DD/ 06 TD/TT: Cold Saw Operator: ELMO [facility] External Provider IMG CT PROCEDURES Edited Result - Final * XR Hip right with Pelvis 1 view (05/13/2023 3:58 PM EDT) Anatomical Region Laterality Modality Lower Extremities, Hip Bilateral Radiograp hic Imaging 05/13/2023 3:58 PM EDT Narrative 05/13/2023 5:03 PM EDT ? [facility] ?[address] ?[place] [address] ?XRay Report ? Signed ? Patient: David Momin,Sofía ?MR#: ?? [id number] ? : 1950 ?Acct:[id number] ? Age/Sex: 72 / F ?ADM Date: 10/23/23 ? Loc: HO.ED ? Attending Dr: ? Ordering Physician: Tammi Andrew ?? Date of Service: 05/13/23 ?? Procedure(s): XR hip RT w PEL1V ?? Accession Number(s): [id number] ? cc: Tamim Andrew; Kera Maria MD ? EXAMINATION: ?? XR HIP, RIGHT ? CLINICAL INFORMATION: ?? Pain after fall ? COMPARISON: ?? None available. ? TECHNIQUE: ?? Two views of the right hip. ?? AP view of the pelvis ? FINDINGS: ?? On the AP view the pelvis, left patient is slightly rotated into a left ?? anterior oblique position. Alignment is normal at the hips, pubic ?? symphysis and sacroiliac joints. No radiographic evidence of acute ?? pelvic bone fracture. ? Joint space of each hip is maintained. At the right hip, the femoral ?? head is well-positioned within the intact acetabulum. There is mild ?? osteophyte formation at the posteromedial aspect of the femoral head. ? Surgical clips are seen in the proximal medial right thigh. There are ?? peripheral vascular calcifications. ? XR/XR hip RT w PEL1V ?? IMPRESSION: ?? * ??Mild osteoarthritis of the right hip. ?? * ??No acute fracture or malalignment at the right hip. ? Dictated By: ?Oscar Oseguera MD ? Signed By: ?<Electronically signed by Oscar Oseguera MD in OV> ? 05/13/23 1659 ? DD/ 1558 ? TD/TT: ? Cold Saw Operator: PD ? Procedure Note [place], Nayely - 05/13/[address] [address] XRay Report Signed Patient: Kaylee Penny#: [id number] : 1950cct:[id number] Age/Sex: 72 / FADM Date: 05/13/23 Loc: HO.ED Attending Dr: Ordering Physician: Tammi Andrew Date of Service: 05/13/23 Procedure(s): XR hip RT w PEL1V Accession Number(s): [id number] cc: Tammi Andrew; Kera Maria MD EXAMINATION: XR HIP, RIGHT CLINICAL INFORMATION: Pain after fall COMPARISON: None available. TECHNIQUE: Two views of the right hip. AP view of the pelvis FINDINGS: On the AP view the pelvis, left patient is slightly rotated into a left anterior oblique position. Alignment is normal at the hips, pubic symphysis and sacroiliac joints. No radiographic evidence of acute pelvic bone fracture. Joint space of each hip is maintained. At the right hip, the femoral head is well-positioned within the intact acetabulum. There is mild osteophyte formation at the posteromedial aspect of the femoral head. Surgical clips are seen in the proximal medial right thigh. There are peripheral vascular calcifications. XR/XR hip RT w PEL1V IMPRESSION: * Mild osteoarthritis of the right hip. * No acute fracture or malalignment at the right hip. Dictated By: Oscar Oseguera MD Signed By: <Electronically signed by Oscar Oseguera MD in OV> 05/13/23 1659 DD/ 1558 TD/TT: Cold Saw Operator: PD [facility] External Provider IMG XR PROCEDURES Final Result documented in this encounter Visit Diagnoses Not on filedocumented in this encounter Care Teams Big Data Admin Relationship Specialty Start Date End Date Kera Maria MD [address] [place] [phone] PCP - General Family Medicine 07/22/18 documented as of this encounter
--- OUTSIDE RECORDS SUMMARY | 2024-09-02 15:08 | XMS_ITS | Encounter Summary ---
Author Organization [employer] Address [address] [facility] [address] [place] [address] Care Team Providers Care Machine Sander Name Role Phone Kera Maria MD Primary Care Provider [phone] Encounter Details Date Type Department Care Team (Late st Contact Info) Description 05/22/2023 Orders Only [facility] [address] [place], [place] [phone] Juhi Onofre LPN Social History Tobacco Use Types Packs/Day Years [...] Description 09/08/2024 10:30 AM EST Office Visit [facility] [address] [place] [address] Kera Maria MD [address] [place] [address] documented as of this encounter Visit Diagnoses Not on filedocumented in this encounter Care Teams Machine Sander Relationship Specialty Start Date End Date Kera Maria MD [address] [place], [place] [phone] PCP - General Family Medicine 07/22/18 documented as of this encounter
--- OUTSIDE RECORDS SUMMARY | 2024-09-02 15:08 | XMS_ITS | Clinical Summary ---
Demographics Address [address] [facility] [address] [place] [address] Mobile Phone Home Phone Preferred Language es Marital Status Unknown Congregational Affiliation Unknown Race Unknown Ethnic Group Unknown Author Organization [facility] Address [address] [place] [address] Phone Care Team Providers Care Ice Crusher Name Role Phone Kera Maria MD Primary Care Provider [phone] Allergies No known active allergies Medications aspirin (ST JEZ) 81 MG EC tablet Take 1 tablet by mouth 1 (one) time each day Active ezetimibe (ZETIA) 10 MG tablet Take 1 tablet by mouth 1 (one) time each day Active montelukast (SINGULAIR) 10 MG tablet Take 1 tablet by mouth 1 (one) time each day Active Rosuvastatin Calcium 40 MG capsule sprinkle Take 1 tablet by mouth 1 (one) time each day Active traZODone (DESYREL) 50 MG tablet Take 1 tablet by mouth at bed time Active pentosan polysulfate (ELMIRON) 100 MG capsule Take 200 mg by mouth 2 (two) times a day Active simethicone (MYLICON,GAS-X) 180 MG capsule Take 180 mg by mouth 4 (four) times a day Active Cholecalciferol (Vitamin D) 25 MCG (1000 UT) tablet Take 1 capsule by mouth 1 (one) time each day Active nitrofurantoin (MACRODANTIN) 100 MG capsule Take 100 mg by mouth every night Active famotidine (PEPCID) 10 MG tablet Take 10 mg by mouth 2 (two) times a day Active Trulicity 0.75 MG/0.5ML solution pen-injector INJECT ONE PEN (=0.75MG) SUBCUTANEOUSLY ONCE A WEEK DIRECTED 04/03/20 21 Active metFORMIN XR (GLUCOPHAGE-XR) 750 MG 24 hr tablet Take 1 tablet by mouth twice a day 03/07/20 21 Active Flovent HFA 110 MCG/ACT inhaler 06/01/20 22 Active Lantus SoloStar 100 UNIT/ML injection INJECT 16 TO 18 UNITS SUBCUTANEOUSLY EVERY EVENING DIRECTED 04/10/20 22 Active levocetirizine (XYZAL) 5 MG tablet Take 5 mg by mouth 1 (one) time each day in the evening 06/01/20 22 Active magnesium oxide 400 (240 Mg) MG tablet Take 1 tablet by mouth 1 (one) time each day 06/01/20 22 Active Riboflavin (Vitamin B-2) 100 MG tablet 06/01/20 22 Active amLODIPine (NORVASC) 10 MG tablet TAKE 1 TABLET BY MOUTH EVERY MORNING 90 tablet 3 06/29/20 22 Active losartan (COZAAR) 50 MG tablet TAKE 1 TABLET BY MOUTH AT BEDTIME 90 tablet 3 06/29/20 22 Active Active Problems Problem Noted Date Diagnosed Date 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 Essential hypertension 10/28/2020 Proteinuria 10/28/2020 Urinary tract infectious disease 10/28/2020 Family History Medical History Relation Comments Cancer Mother Heart disease Mother Relation Status Comments Father Mother Social History Tobacco Use Types Packs/Day Years Used Date Smoking Tobacco: Never Smokeless Tobacco: Never Tobacco Cessation:Counseling Given: Not Answered Alcohol Use Standard Drinks/Week Comments No 0 (1 standard drink = 0.6 oz pur e alcohol) Comments Unknown Sex and Gender Information Value Date Recorded Sex Assigned at Not on file Legal Sex Female 5:07 PM EST Gender Identity Not on file Sexual Orientation Not on file Last Filed Vital Signs Vital Sign Reading Time Taken Comments Blood Pressure 110/60 03/27/2023 3:13 PM EDT Pulse 77 03/27/2023 3:13 PM EDT Temperature - - Respiratory Rate - - Oxygen Saturation 98% 06/06/2022 1:56 PM EST Inhaled Oxygen Concentration - - Weight 75.4 kg (166 lb 3.2 oz) 03/27/2023 3:13 P M EDT Height 162.6 cm (5' 4 ) 10/22/2019 12:00 PM EDT Body Mass Index 28.53 10/22/2019 12:00 PM EDT Plan of Treatment Health Maintenance Due Date Last Done Comments Breast Cancer Screening 1950 Colorectal Cancer Screening: Annual FOBT 2000 Colorectal Cancer Screening: Colonoscopy 2000 Colorectal Cancer Screening: Sigmoidoscopy 2000 Hepatitis B Vaccine (1 of 3 - Risk 3-dose series) 2011 03/08/2017, 02/25/2015, 01/21/2014 Diabetes: Hemoglobin A1C 09/01/2024 05/23/2024, 07/0 02/2023 Diabetes: Ophthalmology Exam 09/01/2024 Diabetes: Pedal Pulse Checked 09/01/2024 Diabetes: Sensory Foot Exam 09/01/2024 Diabetes: Visual Foot Exam 09/01/2024 Pneumococcal Vaccine: 65+ Years Completed 05/27/2017, 05/21/2016, 04/19/2013, Additional history exists Influenza Vaccine Completed 05/25/2024, , 08/03/2020, Additional history exists [place] [address] [employer] [facility] ([id number]) [place] [address] [employer] [facility] ([id number]) Care Teams Ice Crusher Relationship Specialty Start Date End Date Kera Maria MD PCP - General 08/01/20
--- OUTSIDE RECORDS SUMMARY | 2024-09-02 15:08 | XMS_ITS | Encounter Summary ---
Author Organization [employer] Address [address] [facility] 7t [place] [address] Care Team Providers Care Auto Tune Up Mechanic Name Role Phone Kera Maria MD Primary Care Provider [phone] Reason for Visit * Reason Onset Date Comments Appointment Request 05/10/2023 Encounter Details Date Type Department Care Team (Late st Contact Info) Description 05/10/2023 Telephone [facility] MED[facility]INE [address] [place] [address] [phone] Kera Maria MD [address] [place] [phone] Appointment Request Social History Tobacco Use Types Packs/Day Years Used Date Smoking Tobacco: Never Smokeless Tobacco: Never Comments Unknown Sex and Gender Information Value Date Recorded Sex Assigned at Female 05/21/2022 10:20 AM EDT Legal Sex Female 10:20 AM EDT Gender Identity Female 05/21/2022 10:20 AM EDT Sexual Orientation Straight 05/21/2022 10 :20 AM EDT documented as of this encounter Miscellaneous Notes * Telephone Encounter - Maricarmen Sargent - 05/10/2023 1:30 PM EDT Tc from pt requesting f/u appt with PCP, any question contact pt [phone]. documented in this encounter Plan of Treatment Upcoming Encounters Date Type Department Care Team (Late st Contact Info) Description 09/08/2024 10:30 AM EST Office Visit [facility] [address] [place] [address] [phone] Kera Maria MD [address] [place] [address] documented as of this encounter Visit Diagnoses Not on filedocumented in this encounter Care Teams Auto Tune Up Mechanic Relationship Specialty Start Date End Date Kera Maria MD [address] [place] [address] PCP - General Family Medicine 07/22/18 documented as of this encounter
--- OUTSIDE RECORDS SUMMARY | 2024-09-02 15:08 | XMS_ITS | Encounter Summary ---
Author Organization [employer] Address [address] [facility] 7t [place] [address] Care Team Providers Care Oncologist Name Role Phone Kera Maria MD Primary Care Provider [phone] Encounter Details Date Type Department Care Team (Late st Contact Info) Description 10/15/2022 Orders Only [facility] MED & PEDS [address] [place], [place] [phone] Elena Unger LPN Social History Tobacco Use Types Packs/Day Years Used Date Smoking Tobacco: Never Assessed Comments Unknown Sex and Gender Information Value [...] Description 09/08/2024 10:30 AM EST Office Visit [facility] [address] [place] [phone] Kera Maria MD [address] [place] [address] documented as of this encounter Visit Diagnoses Not on filedocumented in this encounter Care Teams Oncologist Relationship Specialty Start Date End Date Kera Maria MD [address] [place] [address] PCP - General Family Medicine 07/22/18 documented as of this encounter
--- OUTSIDE RECORDS SUMMARY | 2024-09-02 15:08 | XMS_ITS | Encounter Summary ---
Author Organization [employer] Address [address] [facility] 7t [place] [address] Care Team Providers Care Wellness Spa Manager Name Role Phone Kera Maria MD Primary Care Provider [phone] Encounter Details Date Type Department Care Team (Late st Contact Info) Description 04/09/2023 Orders Only [facility] MED & PEDS [address] [place], [place] [phone] Juhi Onofre LPN Social History Tobacco Use [...] Description 09/08/2024 10:30 AM EST Office Visit [facility] MED[facility]INE [address] [place] [phone] Kera Maria MD [address] [place] [address] documented as of this encounter Visit Diagnoses Not on filedocumented in this encounter Care Teams Wellness Spa Manager Relationship Specialty Start Date End Date Kera Maria MD [address] [place] [address] PCP - General Family Medicine 07/22/18 documented as of this encounter
--- OUTSIDE RECORDS SUMMARY | 2024-09-02 15:08 | XMS_ITS | Encounter Summary ---
Author Organization [employer] Address [address] [facility] 7t [place] [address] Care Team Providers Care Senior Solutions Architect Name Role Phone Kera Maria MD Primary Care Provider [phone] Reason for Visit * Reason Comments Med Refill Encounter Details Date Type Department Care Team ([facility] Contact Info) Description 04/17/2024 Refill [facility] [address] [place], [place] [phone] Kera Maria MD [address] [place], [place] [phone] Social History Tobacco Use Types Packs/Day Years Used Date Smoking Tobacco: Never Smokeless Tobacco: Never Housing Stability Answer Date Recorded What is your housing situation today? I have bren yadav 06/20/[address] you li ve. Do you have problems with any of the following? None of the above 06/20/2023 Food Insecurity Answer Date Recorded Within the past 12 months, y ou worried that your food would run out before you got money to buy more: Never True 06/20/2023 Within the past 12 months,th e food you bought just didn't last and you didn't have enough money to get more: Never True Transportation Answer Date Recorded In the past 12 months, has l ack of transportation kept you from medical appts, meetings, work or from getting things needed for daily living? No 06/20/2023 Utilities Answer Date Recorded In the past 12 months, has t he electric, gas, oil or water company threatened to shut off services in your home? No 06/20/2023 Depression Answer Date Recorded Patient Health Questionnaire-2 Score 2 06/20/2023 Comments Unknown Sex and Gender Information Value [...] Description 09/08/2024 10:30 AM EST Office Visit [facility] [address] [place] [address] Kear Maria MD [address] [place] [address] documented as of this encounter Visit Diagnoses Not on filedocumented in this encounter Care Teams Senior Solutions Architect Relationship Specialty Start Date End Date Kera Maria MD [address] [place] [address] PCP - General Family Medicine 07/22/18 documented as of this encounter
--- OUTSIDE RECORDS SUMMARY | 2024-09-02 15:08 | XMS_ITS | Encounter Summary ---
Author Organization [facility] Address [address] [facility] 7t [place] [address] Care Team Providers Care Master Steam Yacht Name Role Phone Kera Maria MD Primary Care Provider [phone] Encounter Details Date Type Department Care Team (Late st Contact Info) Description 10/15/2022 Orders Only [facility] MEDICINE [address] [place] [phone] Juhi Onofre LPN Social History Tobacco Use [...] Description 09/08/2024 10:30 AM EST Office Visit [facility] MED[facility]INE [address] [place] [phone] Kera Maria MD [address] [place] [phone] documented as of this encounter Visit Diagnoses Not on filedocumented in this encounter Care Teams Master Steam Yacht Relationship Specialty Start Date End Date Kera Maria MD [address] [place] [phone] PCP - General Family Medicine 07/22/18 documented as of this encounter
--- OUTSIDE RECORDS SUMMARY | 2024-09-02 15:08 | XMS_ITS | Encounter Summary ---
Author Organization [employer] Address [address] [facility] [address] 7[address] [place] [address] Care Team Providers Care Top Case Assembler Name Role Phone Kera Maria MD Primary Care Provider [phone] Reason for Visit * Reason Comments Med Refill Encounter Details Date Type Department Care Team ([facility] st Contact Info) Description 08/03/2024 Refill [facility] [address] [place], [place] [phone] Briana Ambrose, ANP [address] [place], [place] [phone] Social History Tobacco Use Types Packs/Day Years Used Date Smoking Tobacco: Never Passive Smoke Exposure: Never Smokeless Tobacco: Never Alcohol Answer Date Recorded Frequency of Alcohol Consumption Not on file 05/25/2024 Average Number of Drinks Not on file 024 Frequency of Binge Drinking Not on file 10/2023 Score 0 05/25/2024 Housing Stability Answer Date Recorded What is [...] Description 09/08/2024 10:30 AM EST Office Visit [facility] [address] [place] [address] [phone] Kera Maria MD [address] [place] [phone] documented as of this encounter Visit Diagnoses Not on filedocumented in this encounter Care Teams Top Case Assembler Relationship Specialty Start Date End Date Kera Maria MD [address] [place] [address] [phone] PCP - General Family Medicine 07/22/18 documented as of this encounter
--- OUTSIDE RECORDS SUMMARY | 2024-09-02 15:08 | XMS_ITS | Encounter Summary ---
Author Organization [facility] Address [address] [facility] 7t [place] [address] Care Team Providers Care Oyster Picker Name Role Phone Kera Maria MD Primary Care Provider [phone] Encounter Details Date Type Department Care Team (Late st Contact Info) Description 08/09/2022 Abstract [facility] MEDICINE [address] [place] [phone] Kera Maria MD [address] [place] [address] [phone] Social History Tobacco Use Types Packs/Day Years [...] Description 09/08/2024 10:30 AM EST Office Visit [facility] MED[facility] [address] [place] [phone] Kera Maria MD [address] [place] [address] [phone] documented as of this encounter Visit Diagnoses Not on filedocumented in this encounter Care Teams Oyster Picker Relationship Specialty Start Date End Date Kera Maria MD [address] [place] [address] [phone] PCP - General Family Medicine 07/22/18 documented as of this encounter
--- OUTSIDE RECORDS SUMMARY | 2024-09-02 15:08 | XMS_ITS | Encounter Summary ---
Author Organization [employer] [facility] Address [address] [facility] 7t [place] [address] Care Team Providers Care Life Sciences Instructor Name Role Phone Kera Maria MD Primary Care Provider [phone] Encounter Details Date Type Department Care Team (Late st Contact Info) Description 08/09/2022 Abstract [facility] MEDICINE [address] [place] [address] [phone] Kera Maria MD [address] [place] [address] [phone] Social History Tobacco Use Types Packs/Day Years [...] Description 09/08/2024 10:30 AM EST Office Visit [facility] MEDICINE [address] [place] [address] [phone] Kera Maria MD [address] [place] [address] [phone] documented as of this encounter Procedures Procedure Name Priority Date/Time Associated Diagnosis Comments MAMMOGRAPHY Routine 08/06/2022 documented in this encounter Results * Mammography (08/06/2022) Mammogram perform Anatomical Region Laterality Modality Other us Historical Provider HEALTH MAINTENANCE Final Result documented in this encounter Visit Diagnoses Not on filedocumented in this encounter Care Teams Life Sciences Instructor Relationship Specialty Start Date End Date Kera Maria MD [address] [place] [address] PCP - General Family Medicine 07/22/18 documented as of this encounter
--- OUTSIDE RECORDS SUMMARY | 2024-09-02 15:08 | XMS_ITS | Encounter Summary ---
Author Organization [facility] Address [address] [place] [address] Care Team Providers Care Tea Tree Farmer Name Role Phone Kera Maria MD Primary Care Provider [phone] Reason for Referral * Imaging (Routine) - Closed Specialty Diagnoses / Procedures Referred By Contac t Referred To Contact Radiology Diagnoses Closed fracture of single pubic ramus of pelvis, right, initial encounter (CMS/HCC) Postmenopause Osteoporosis screening declined Procedures BD DEXA Axial Kera Maria MD [address] [place] [id number] Phone: tel: fax: [address] Phone: tel: fax: Referral ID Status Reason Start Date Expiration Date Visits Re quested Visits Authorized [id number] Closed 08/26/2023 08/25/2024 1 1 Encounter Details Date Type Department Care Team (Late st Contact Info) Description 08/26/2023 Orders Only [facility] [address] [place] [address] [phone] Kera Maria MD [address] [place], [place] [phone] Closed fracture of single pubic ramus of pelvis, right, initial encounter (CMS/HCC) (Primary Dx); Postmenopause; Osteoporosis screening declined Social History Tobacco Use Types Packs/Day Years [...] Description 09/08/2024 10:30 AM EST Office Visit [facility] [address] [place] [address] Kera Maria MD [address] [place] [address] documented as of this encounter Procedures Procedure Name Priority Date/Time Associated Diagnosis Comments BD DEXA AXIAL Routine 09/13/2023 9:20 AM EST Closed fracture of single pubic ramus of pelvis, right, initial encounter ([facility]) Postmenopause Osteoporosis screening declined documented in this encounter Results * BD DEXA Axial (09/13/2023 9:20 AM EST) Anatomical Region Laterality Modality Body Radiographic Collette ging 09/13/2023 9:20 AM EST Narrative 09/13/2023 5:44 PM EST ? [facility] ? [address] ?[place], [place] [address] ? Mammography Report ? Signed ? Patient: David Momin,Sofía ?MR#: ?? [id number] ? : 1950 ?Acct:[id number] ? Age/Sex: 73 / F ?ADM Date: 09/13/23 ? Loc: HO.MAMMO ? Attending Dr: Kera Maria MD ? Ordering Physician: Kera Maria MD ?Results: ? Date of Service: 09/13/23 ?Follow Up: ? Procedure(s): XR DEXA axial skeleton ?? Accession Number(s): [id number] ? cc: Kera Maria MD ? EXAMINATION: ?? BONE DENSITOMETRY ? CLINICAL INDICATION: ?? Postmenopausal. ? COMPARISON: ?? This is the patient's baseline examination. ? TECHNIQUE: Using a My Single Point DXA System (software version: ?? 13.1) manufactured by [employer], dual-energy x-ray absorptiometry ?? was performed of the lumbar spine and left hip. The images are of good ?? technical quality. Summary results are attached. ? FINDINGS: ?? LEFT FEMUR, NECK: ?? BMD 0.774 g/cm2, Z-score -0.3, T-score -1.9, osteopenia. ? LEFT FEMUR, TOTAL: ?? BMD 0.882 g/cm2, Z-score 0.4, T-score -1.0, normal. ? AP SPINE L1-L4: ?? BMD 0.914 g/cm2, Z-score -0.8, T-score -2.2, osteopenia. ? IDENTIFIED RISK FACTORS: ?? Menopause, left oophorectomy, hysterectomy, history of fracture ?? (adult), secondary osteoporosis. ? HISTORY OF FRACTURE: ?? Pelvis. ? MEDICATIONS: ?? Vitamin D. ? MM/XR DEXA axial skeleton ?? IMPRESSION: ?? 1. DIAGNOSIS: Osteopenia based on the lowest T-score value of -2.2 in ?? the lumbar spine applying World Health Organization criteria. ? 2. 10-YEAR FRACTURE RISK PREDICTION, FRAX: Major osteoporotic fracture ?? (clinical spine, forearm, hip or shoulder) 10.7%. Hip fracture 2.1%. ?? 3. Treatment Recommendations: NOF guidelines recommend consideration ?? for treatment in postmenopausal women and men age 50 and older ?? presenting with the following: ?? -A hip or vertebral (clinical or morphometric) fracture. ?? -T-score less than or equal to -2.5 at the femoral neck or spine after ?? appropriate evaluation to exclude secondary causes. ?? -Low bone mass at the hip or spine and a 10-year fracture probability ?? by FRAX of greater than or equal to 3% for hip fracture or greater than ?? or equal to 20% for major osteoporotic fracture based on the [place] adapted ?? WHO algorithm. ?? 4. Other Recommendations: All treatment decisions require clinical ?? judgment and consideration of individual patient factors, including ?? patient preferences, comorbidities, previous drug use, risk factors not ?? captured in the FRAX model (e.g. frailty, falls, vitamin D deficiency, ?? increased bone turnover, interval significant decline in bone density) ?? and possible under or overestimation of fracture risk by FRAX. ?? Additional medical evaluation for secondary cause of low bone mineral ?? density may be appropriate. ? FUTURE SCAN RECOMMENDATION: ?? People with diagnosed cases of osteoporosis or at high risk for ?? fracture should have regular bone mineral density tests. For patients ?? eligible for Medicare, routine testing is allowed once every 2 years. ?? The testing frequency can be increased to one year for patients who ?? have rapidly progressing disease, those who are receiving or ?? discontinuing medical therapy to restore bone mass, or have additional ?? risk factors. ? Dictated By: ?Al Bland MD ? Signed By: ?<Electronically signed by Al Bland MD in [place]> ?09/13/231739 ? DD/ 0920 ? TD/TT: ? Therapy Assistant: SK ? Procedure Note Donotuseinterpreter, Image - 09/13/2023 [place] [facility] [address] [place], [place] [address] Mammography Report Signed Patient: Kaylee Penny#: [id number] : 1950cct:[id number] Age/Sex: 73 / FADM Date: 09/13/23 Loc: [facility] Attending Dr: Kera Maria MD Ordering Physician: Kera Mariaesults: Date of Service: 09/13/23Follow Up: Procedure(s): XR DEXA axial skeleton Accession Number(s): [id number] cc: Kera Maria MD EXAMINATION: BONE DENSITOMETRY CLINICAL INDICATION: Postmenopausal. COMPARISON: This is the patient's baseline examination. TECHNIQUE: Using a [employer] DXA System (software version: 13.1) manufactured by [employer], dual-energy x-ray absorptiometry was performed of the lumbar spine and left hip. The images are of good technical quality. Summary results are attached. FINDINGS: LEFT FEMUR, NECK: BMD 0.774 g/cm2, Z-score -0.3, T-score -1.9, osteopenia. LEFT FEMUR, TOTAL: BMD 0.882 g/cm2, Z-score 0.4, T-score -1.0, normal. AP SPINE L1-L4: BMD 0.914 g/cm2, Z-score -0.8, T-score -2.2, osteopenia. IDENTIFIED RISK FACTORS: Menopause, left oophorectomy, hysterectomy, history of fracture (adult), secondary osteoporosis. HISTORY OF FRACTURE: Pelvis. MEDICATIONS: Vitamin D. MM/XR DEXA axial skeleton IMPRESSION: 1. DIAGNOSIS: Osteopenia based on the lowest T-score value of -2.2 in the lumbar spine applying World Health Organization criteria. 2. 10-YEAR FRACTURE RISK PREDICTION, FRAX: Major osteoporotic fracture (clinical spine, forearm, hip or shoulder) 10.7%. Hip fracture 2.1%. 3. Treatment Recommendations: NOF guidelines recommend consideration for treatment in postmenopausal women and men age 50 and older presenting with the following: -A hip or vertebral (clinical or morphometric) fracture. -T-score less than or equal to -2.5 at the femoral neck or spine after appropriate evaluation to exclude secondary causes. -Low bone mass at the hip or spine and a 10-year fracture probability by FRAX of greater than or equal to 3% for hip fracture or greater than or equal to 20% for major osteoporotic fracture based on the [place] adapted WHO algorithm. 4. Other Recommendations: All treatment decisions require clinical judgment and consideration of individual patient factors, including patient preferences, comorbidities, previous drug use, risk factors not captured in the FRAX model (e.g. frailty, falls, vitamin D deficiency, increased bone turnover, interval significant decline in bone density) and possible under or overestimation of fracture risk by FRAX. Additional medical evaluation for secondary cause of low bone mineral density may be appropriate. FUTURE SCAN RECOMMENDATION: People with diagnosed cases of osteoporosis or at high risk for fracture should have regular bone mineral density tests. For patients eligible for Medicare, routine testing is allowed once every 2 years. The testing frequency can be increased to one year for patients who have rapidly progressing disease, those who are receiving or discontinuing medical therapy to restore bone mass, or have additional risk factors. Dictated By: Al Bland MD Signed By: <Electronically signed by Al Bland MD in OV> 09/13/23 0620 DD/ 0920 TD/TT: Therapy Assistant: DOROTHEA Kera Maria MD IMG DXA PROCEDURES Final Result documented in this encounter Visit Diagnoses Diagnosis Closed fracture of single pubic ramus of pelvis, right, initial encounter ([facility])- Primary Postmenopause Asymptomatic postmenopausal status (age-related) (natural) Osteoporosis screening declined documented in this encounter Care Teams Tea Tree Farmer Relationship Specialty Start Date End Date Kera Maria MD [address] [place] [address] PCP - General Family Medicine 07/22/18 documented as of this encounter
--- OUTSIDE RECORDS SUMMARY | 2024-09-02 15:08 | XMS_ITS | Clinical Summary ---
Demographics Address [address] [facility] [address] [place] [address] Mobile Phone Work Phone Home Phone Preferred Language es Marital Status Mormonism Affiliation Unknown Race Other Race Ethnic Group or Author Organization [facility] [facility] Address [address] [facility] [address] [place] [address] Care Team Providers Care Cattery Operator Name Role Phone Kera Maria MD Primary Care Provider [phone] Allergies Active Allergy Reactions Criticality Noted Date Comments Latex 06/21/2023 Medications cholecalciferol (Vitamin D-3) 25 MCG tablet TAKE 1 TABLET BY MOUTH EVERY MORNING 023 Active Misc. Devices (Pulse Oximeter For Finger) miscIndications:C OVID-19 To check your oxygen level every 4 hours. Call the office if O2 Sat drops below 90% 1 each [address] 10 MG tablet 023 Active magnesium oxide (Mag-Ox) 400 (240 Mg) MG tablet Active nitrofurantoin (Macrodantin) 50 MG capsule TAKE 1 CAPSULE BY MOUTH AT BEDTIME TAKE WITH FOOD Active Elmiron 100 MG capsule 023 Active riboflavin (vitamin B2) 100 mg tablet tablet 023 Active Simethicone Ultra Strength 180 MG capsule 023 Active UltiCare Short Pen [place] 31G X 8 MM miscIndications:T ype 2 diabetes mellitus with hyperglycemia (CMS/HCC) USE FIVE TIMES DAILY DIRECTED 100 each 11 024 Active Aspirin Adult Low Strength 81 MG EC tablet TAKE 1 TABLET BY MOUTH EVERY MORNING 30 tablet 11 024 Active cholecalciferol 25 MCG tablet TAKE 1 TABLET BY MOUTH EVERY MORNING 30 tablet 11 024 Active glucose blood (OneTouch Ultra) test stripIndications: Type 2 diabetes mellitus with other specified complication, unspecified whether termination clerk insulin use ([facility]) TEST BLOOD SUGAR 3 TIMES A DAY 100 strip 11 024 Active Lancets (OneTouch Delica Plus [id number]) miscIndications:T ype 2 diabetes mellitus with other specified complication, unspecified whether longterm insulin use ([facility]) TEST BLOOD SUGAR 3 TIMES A DAY 100 each 11 024 Active montelukast (Singulair) 10 MG tablet TAKE 1 TABLET BY MOUTH AT BEDTIME 90 tablet 3 Active metFORMIN XR (Glucophage-XR) 750 MG 24 hr tablet TAKE 1 TABLET BY MOUTH TWICE DAILY IN THE MORNING AND IN THE EVENING WITH MEALS 180 tablet 3 Active Bisacodyl EC 5 MG EC tablet TAKE 2 TABLETS BY MOUTH AT BEDTIME FOR 2 DAYS Active Noy-Tussin DM 10-100 MG/5ML liquid TAKE 5ml BY MOUTH EVERY 4 HOURS NEEDED FOR COUGH FOR UP TO 10 DAYS 023 Active PEG 6212-RYs-ZeMtw-Na Cl-NaSulf (PEG-3350/Electro lytes) 236 g reconstituted solution MIX WITH WATER AND DRINK 240 ML EVERY 10 MINUTES UNTIL FECAL EFFLUENT IS CLEAR DO NOT EXCEED 1/2 BOTTLE Active furosemide (Lasix) 20 MG tablet Take 20 mg by mouth Once per day. Active Alcohol Swabs (Alcohol Prep) 70 % padsIndications:T ype 2 diabetes mellitus with hyperglycemia ([facility]) USE DIRECTED WITH INSULIN 100 each 11 024 Active celecoxib (CeleBREX) 200 MG capsule TAKE 1 CAPSULE BY MOUTH EVERY TWELVE HOURS NEEDED FOR PAIN WITH FOOD 40 capsule 1 Active Dulaglutide (Trulicity) 1.5 MG/0.5ML solution auto-injectorIndi cations:Type 2 diabetes mellitus with hyperglycemia, with long-term current use of insulin ([facility]) Inject 1.5 mg under the skin 1 (one) time per week. 2 mL 11 Active alendronate (Fosamax) 70 MG tablet Take 1 tablet (70 mg) by mouth every 7 (seven) days. Take in the morning with a full glass of water, on an empty stomach, and do not take anything else by mouth or lie down for the next 30 min. 12 tablet 3 024 2024 Active amLODIPine (Norvasc) 10 MG tablet TAKE 1 TABLET BY MOUTH EVERY MORNING 90 tablet 3 024 Active ezetimibe (Zetia) 10 MG tabletIndications :Mixed hyperlipidemia TAKE 1 TABLET BY MOUTH AT BEDTIME 90 tablet 3 024 Active losartan (Cozaar) 50 MG tablet TAKE 1 TABLET BY MOUTH AT BEDTIME 90 tablet 3 024 Active levocetirizine (Xyzal) 5 MG tabletIndications :Allergic rhinitis, unspecified seasonality, unspecified trigger TAKE 1 TABLET BY MOUTH EVERY EVENING 90 tablet 1 024 Active traZODone (Desyrel) 50 MG tabletIndications :Depression, unspecified depression type TAKE 1 TABLET BY MOUTH AT BEDTIME 90 tablet 1 024 Active rosuvastatin (Crestor) 40 MG tablet TAKE 1 TABLET BY MOUTH AT BEDTIME 90 tablet 1 024 Active Lantus SoloStar 100 UNIT/ML pen INJECT 16-18 UNITS SUBCUTANEOUSLY EVERY EVENING DIRECTED 15 mL 11 025 Active Lantus SoloStar 100 UNIT/ML pen INJECT 16-18 UNITS SUBCUTANEOUSLY EVERY EVENING DIRECTED 2024 Discontinued Active Problems Problem Noted Date Diagnosed Date Coccyx pain 05/30/2024 Assessment & Plan (05/30/2024 6:32 AM EST): - patient has history of hemorrhoids and coccyx pain. Worsened since the fall resulting pelvis fracture. - patient requests a cushion for the pain; will check if there is DME to alleviate her pain. BART (obstructive sleep apnea) 06/20/2023 Assessment & Plan (05/29/2024 3:18 PM EST): -Sleep study on 10/28/18 confirmed BART -Followed by sleep clinic since 05/2019, last seen on 10/17/21, BiPAP setting was adjusted -Continue BiPAP IPAP 9 cmH2O and EPAP 5 cmH2O -?Tx for PLMS Assessment & Plan (06/21/2023 6:30 AM EST): -Sleep study on 10/28/18 confirmed BART -Followed by sleep clinic since 05/2019, last seen on 10/17/21, BiPAP setting was adjusted -Continue BiPAP IPAP 9 cmH2O and EPAP 5 cmH2O -?Tx for PLMS Migraine 06/20/2023 Assessment & Plan (06/20/2023 5:25 AM EST): She was Rx prophylactic medication from Sleep Medicine Provider -Pt has Aura and takes Tylenol when having Migraine effect -Rx Magnesium Rivoflactin -Pt is not taking nitrofurantoin Metabolic dysfunction-associ ated steatotic liver disease (MASLD) 06/20/2023 Assessment & Plan (05/29/2024 3:20 PM EST): - [place] with [facility] - last [place] in November 2021 Assessment & Plan (06/20/2023 5:47 AM EST): - following with [facility] - last US in November 2021 Restrictive airway disease 06/20/2023 Assessment & Plan (05/29/2024 3:18 PM EST): - evaluated by audio visual technician - last PFT in December 2022, no obstructive airway disease / RAD - breathing exercise Assessment & Plan (06/20/2023 6:01 AM EST): - evaluated by audio visual technician - last PFT in December 2022, no obstructive airway disease / RAD - breathing exercise Proteinuria 10/28/2020 Chronic interstitial cystitis 11/25/2017 Assessment & Plan (05/29/2024 3:22 PM EST): Se[place] [facility] [place] on 02/08/22 for f/u recurrent UTI and IC. Pt currently on Elmiron and nitrofurantoin per note. Assessment & Plan (06/20/2023 5:26 AM EST): Seen [place] [facility] [place] on 02/08/22 for f/u recurrent UTI and IC. Pt currently on Elmiron and nitrofurantoin per note. Dyslipidemia 08/29/2017 06/12/2023 Assessment & Plan (05/30/2024 6:35 AM EST): -Last lipid profile: 06/20/23 -Medication: Crestor 40 mg qhs; Zetia 10 mg daily -Previously on fenofibrate 160 mg daily which was discontinued for uncertain benefit -According to ACC/AHA guideline, high-intensity statin therapy is recommended. She is on appropriate treatment and finally at her goal LDL with current treatment. -Continue working on lifestyle modification. -Continue current medications. -Reviewed possible arthralgia / myalgia secondary to statin. No elevated CPK or LFT in the past. Pt agreed that her pain is most likely from her tendonitis and OAs. Pt would like to continue current regimen to minimize her ASCVD risk. Assessment & Plan (06/20/2023 5:46 AM EST): -Last lipid profile: 05/29/2021 TC: 94, HDL:43, LDL:31, T -Medication: Fenofibrate 160 mg daily; Crestor 40 mg qhs; Zetia 10 mg daily -According to ACC/AHA guideline, high-intensity statin therapy is recommended. She is on appropriate treatment and finally at her goal LDL with current treatment. -Continue working on lifestyle modification. -Continue current medications. -Reviewed possible arthralgia / myalgia secondary to statin. No elevated CPK or LFT in the past. Pt agreed that her pain is most likely from her tendonitis and OAs. Pt would like to continue current regimen to minimize her ASCVD risk. Tubular adenoma of colon 08/29/2017 023 Assessment & Plan (05/29/2024 3:20 PM EST): - Colonoscopy in 2012 showed tubular adenoma - Colonoscopy in Mar 2018 showed no tubular adenoma; recommended to repeat in 5-7 years - Pt states she was given a prep solution, but the date for colonoscopy is yet to be determined Assessment & Plan (06/21/2023 6:34 AM EST): - Colonoscopy in 2012 showed tubular adenoma - Colonoscopy in Mar 2018 showed no tubular adenoma; recommended to repeat in 5-7 years - Pt states she was given a prep solution, but the date for colonoscopy is yet to be determined Peripheral venous insufficiency 05/21/2016 06/20/2023 Ischemic heart disease 01/25/2016 3 Assessment & Plan (05/29/2024 3:19 PM EST): - CABG in 2005 - Following with [facility], last note from Aug 2022 - Stress test and myocardial perfusion imaging in Jun 2022, no ischemia - continue secondary preventative measures. Assessment & Plan (06/20/2023 6:00 AM EST): - CABG in 2005 - Following with [facility], last note from Aug 2022 - Stress test and myocardial perfusion imaging in Jun 2022, no ischemia - continue secondary preventative measures. Gastroesophageal reflux disease 10/12/2015 06/12/2023 Mixed stress and urge urinary incontinence 10/1106/12/2023 Atherosclerosis of [place] co ronary artery of [place] heart without angina pectoris 04/25/2015 06/12/2023 Insomnia 04/25/2015 06/12/2023 Obesity 04/25/2015 06/12/2023 Essential hypertension 04/25/2015 3 Assessment & Plan (05/29/2024 3:20 PM EST): -Goal BP < 140/90 per JNC-8 and < 130/80 per ACC/AHA guideline -Co-managed with wrecker operator and regional economist -Slightly elevated BP, possibly due to her pain and current condition -Continue working on lifestyle modifications -Recommended self-monitoring BP. -Continue working on lifestyle modifications. -Continue current medications: amlodipine 10 mg daily; losartan 50 mg daily -Treatment Hx: metoprolol - discontinued due to dizziness Assessment & Plan (06/21/2023 6:33 AM EST): -Goal BP < 140/90 per JNC-8 and < 130/80 per ACC/AHA guideline -Co-managed with wrecker operator and regional economist -Slightly elevated BP, possibly due to her pain and current condition -Continue working on lifestyle modifications -Recommended self-monitoring BP. -Continue working on lifestyle modifications. -Continue current medications: amlodipine 10 mg daily; losartan 50 mg daily -Treatment Hx: metoprolol - discontinued due to dizziness Type 2 diabetes mellitus 01/05/2013 023 Assessment & Plan (05/30/2024 6:39 AM EST): - A1C 9.0% on 05/25/24, worsened from 7% in May 2023 -Continue working on lifestyle modifications -Continue metformin ER 750 mg bid, consider maximizing -Increase Trulicity 1.5 mg weekly, titrate up as tolerated -SGLT-2 inhibitor has a great CV benefit for her, but she has urinary problem, so we will not try at this time unless there will be a new SGLT-2 inhibitor without side effect -She is no longer using Lantus insulin (last dose was 16-18 units in 2021) Treatment Hx: Glipizide was discontinued due to increased risk of hypoglycemia. Patient self-discontinued Lantus when she started using GLP1RA. Last eye exam: 01/05/23, no diabetic retionpathy, s/p cataract surgery Last foot exam: 04/04/22, Plantar warts b/l Last microalbumin test: 06/20/23 UACR 90 Last lipid profile: 06/20/23 Last dental exam: Immunizations: Due for COVID, but patient declines. Aspirin use: Prescribed. Assessment & Plan (06/24/2023 10:16 AM EST): - A1C 7.0% on 06/20/23 stable -Continue working on lifestyle modifications -Continue metformin ER 750 mg bid -Continue Trulicity 0.75 mg weekly, titrate up as tolerated, will consider increasing to 1.5 at next visit. -SGLT-2 inhibitor has a great CV benefit for her, but she has urinary problem, so we will not try at this time unless there will be a new SGLT-2 inhibitor without side effect -She is no longer using Lantus insulin (last dose was 16-18 units in 2021) Treatment Hx: Glipizide was discontinued due to increased risk of hypoglycemia. Last eye exam: 04/2019, s/p cataract surgery Last foot exam: 04/04/22, Plantar warts b/l Last microalbumin test: 05/29/2021 USCR 54 Last lipid profile: 05/29/2021 TC: 94, HDL:43, LDL:31, T Last dental exam: Immunizations: -Influenza - UTD -Pneumovax - UTD -Hep B - Completed Aspirin use: Prescribed. Allergic rhinitis 04/22/2012 06/12/2023 Recurrent urinary tract infection 04/22/2012 06/12/2023 Assessment & Plan (05/24/2024 6:20 AM EST): - following with [facility] last seen in May 2023 - last UTI in Feb 2024, breakthrough (on nitrofurantoin prophylaxis). - urine culture in Feb 2024 grew Klebsiella. Treated with TMP/SMX. Assessment & Plan (03/01/2024 9:28 PM EDT): UA and symptoms highly suggestive of breakthrough UTI despite daily prophylaxis Bactrim BID x 5 days Pyridium up to TID x 3 days Alarm symptoms for return to clinic or ED prior to completion of antibiotics We will contact her with urine culture results Assessment & Plan (06/20/2023 5:25 AM EST): Seen [place] [facility] [place] [place] on 02/08/22 for f/u recurrent UTI and IC. Pt currently on Elmiron and nitrofurantoin. -Last UTI DECEMBER 2021. -Cont Elmiron and nitrofurantoin. 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/16/2005 06/12/2023 Resolved Problems Problem Noted Date Diagnosed Date Resolved Date Disorder of vein 06/26/2018 06/12/2023 06/20/2023 Encounters Date Type Department Care Team Description 08/03/2024 Refill [facility] [address] [place], [place] [id number] Briana Ambrose ANP 06/29/2024 Refill [facility] [address] [place] [address] Kera Maria MD Allergic rhinitis, unspecified seasonality, unspecified trigger; Depression, unspecified depression type 06/04/2024 Telephone [facility] [address] [place] [address] Joanne Jimenez [place] Dme pillow from Last 3 Months Immunizations Name Administration Dates Next Due Hep A, Adult 05/25/2024 Hep B, adult 03/08/2017,02/25/2015,01/21/2014 Influenza High-dose Quadriva lent Preservative Free 06/20/2023,04/04/2022 Influenza Quadrivalent Adjuvanted 08/03/2020 Influenza injectable quadriv alent IIV4 with preservative 05/21/2016 Influenza injectable quadriv alent preservative free 06/06/2021,06/26/2018,05/27/2017,04/25 Influenza, High Dose Seasona l, Preservative Free 05/25/2024,09/10/2019 Influenza, IIV3, injectable 04/29/2014,0 04/19/2010,04/05/2009,04/29 Influenza, Split (incl. alban fied surface antigen) 03/31/2013,04/22/2012 Pneumococcal Conjugate PCV 13 05/21/2016 Pneumococcal Polysaccharide PPSV23 05/27/2017,,10/20/2007 TD (adult), 2 Lf tetanus tox oid, preservative free, adsorbed 04/07/2008 Tdap 02/16/2021,04/22/2012 Zoster, Recombinant 01/29/2020,09/15/2019 Zoster, live 02/25/2015 Social History Tobacco Use Types Packs/Day Years Used Date Smoking Tobacco: Never Passive Smoke Exposure: Never Smokeless Tobacco: Never Tobacco Cessation:Counseling Given: Not Answered Alcohol Answer Date Recorded Frequency of Alcohol [...] Orientation Straight 05/21/2022 10 :20 AM EDT Last Filed Vital Signs Vital Sign Reading Time Taken Comments Blood Pressure 134/70 05/25/2024 11:49 AM EST Pulse 85 05/25/2024 10:08 AM EST Temperature 36.1 ??C (96.9 ??F) 05/25/2024 10:[address] Respiratory Rate 20 05/25/2024 10:08 AM EST Oxygen Saturation 98% 05/25/2024 10:08 AM EST Inhaled Oxygen Concentration - - Weight 71.8 kg (158 lb 6.4 oz) 05/25/2024 10:08 AM EST Height 160 cm (5' 3 ) 05/25/2024 10:08 AM EST Body Mass Index 28.06 05/25/2024 10:08 AM EST Plan of Treatment Upcoming Encounters Date Type Department Care Team (Late st Contact Info) Description 09/08/2024 10:30 AM EST Office Visit [facility] [address] [place] [address] Kera Maria MD [address] [place] [address] Health Maintenance Due Date Last Done Comments CT Colonography 1950 FIT DNA/Cologuard 1950 FIT 1950 FOBT 1950 Sigmoidoscopy 1950 Eye Exam 1961 Hepatitis C Screening 1969 RSV Patients and Patients Aged 60 years or older (1 - Risk 60-74 years 1-dose series) 2011 Colonoscopy 04/01/2023 04/01/2018 Colorectal Cancer Screening 04/01/2023 COVID-19 Vaccine ( season) 2024 08/23/2021, 10/21/2020, 09/23/2020 Depression Screening 06/20/2024 06/20/2023, 06/20/20 23 Diabetes: Urine Protein Screening 06/20/2024 06/20/2023, 05/29/2021 Lipid Panel 06/20/2024 06/20/2023, 05/29/2021 SDOH Screening 06/20/2024 06/20/2023 Diabetes: Hemoglobin A1C 08/23/2024 024, 06/21/2023, 01/26/2023 Hepatitis A Vaccines (2 of 2 - Risk 2-dose series) 11/22/2024 05/25/2024 Alcohol/Substance Use Screening 05/25/2025 05/25/2024 Diabetes: Foot Exam 05/25/2025 05/25/2024, 05/25/2024, 05/25/2024, Additional history exists Tobacco Screening 05/25/2025 05/25/2024 Mammogram 11/28/2025 11/29/2023, 07/22, 08/06/2022, Additional history exists DTaP/Tdap/Td Vaccines (3 - Td or Tdap) 02/16/2031 02/16/2021, 04/22/2012, 04/07/2008 Hepatitis B Vaccines Completed 03/08/2017, 02/25/2015, 01/21/2014 Pneumococcal Vaccine: 50+ Years Completed 05/27/2017, 05/21/2016, 04/19/2013, Additional history exists Zoster Vaccines Completed 01/29/2020, 08/23, 02/25/2015 Influenza Vaccine Completed 05/25/2024, , 04/04/2022, Additional history exists HIB Vaccines Aged Out No longer eligi ble based on patient's age to complete this topic HPV Vaccines Aged Out No longer eligi ble based on patient's age to complete this topic IPV Vaccines Aged Out No longer eligi ble based on patient's age to complete this topic Meningococcal Vaccine Aged Out No hi castillo eligible based on patient's age to complete this topic RSV under 20 months Aged Out No longe r eligible based on patient's age to complete this topic Rotavirus Vaccines Aged Out No longer eligible based on patient's age to complete this topic Procedures Procedure Name Priority Date/Time Associated Diagnosis Comments HEMOGLOBIN A1C Routine 05/23/2024 9:24 AM EDT BI MAMMOGRAM SCREENING TOMOSYNTHESIS BILATERAL Routine 11/29/2023 10:25 AM EDT ALBUMIN, RANDOM URINE W/CREATININE Routine 06/20/2023 1:03 PM EST Type 2 diabetes mellitus without complication, with long-term current use of insulin ([facility]) LIPID PANEL WITH REFLEX TO DIRECT LDL Routine 06/20/2023 1:03 PM EST Type 2 diabetes mellitus without complication, with long-term current use of insulin ([facility]) Dyslipidemia HM COLONOSCOPY Routine 04/01/2018 from Last 3 Months or Most Recently Relevant to Health Maintenance Results * (ABNORMAL) Hemoglobin A1c (05/23/2024 9:24 AM EDT) Hemoglobin A1c 9.0(H) <6.0 % [facility] Comment:Hemoglobin A1C Refer ence Range Adults: 4.8 - 6.0 % Non diabetic: < 6.0 % Goal: < 7.0 %Additional Action Suggested: > 8.0 %Note: Hemoglobin A1c results are invalid for patients with abnormal amounts of HbF. Blood transfusions may impact the HbA1c concentration in the patient sample. Estimated Average Glucose 212 mg/dL [facility] Comment:eAG = Estimated ave rage glucose which is %A1C expressed asaverage glucose, using the formula of the W9D-BeesgnfFapheel Glucose study (ADAG), Diabetes Care, Vol.31,#8,Feb. 2007 05/23/2024 9:24 AM EDT 05/23/2024 9:24 AM EDT us Generic External Data Provider LAB BLOOD ORDERAB LES Final Result [facility] [address] [place] [id number] [phone] * BI Mammogram Screening Tomosynthesis Bilateral (11/29/2023 10:25 AM EDT) Anatomical Region Laterality Modality Breast Bilateral Mammography 11/29/2023 10:2 5 AM EDT Narrative 12/27/2023 9:22 AM EDT ? [facility] ? [address] ?[place] [address] ? Mammography Report ? Signed ? Patient: Sofía Penny ?MR#: ?? [id number] ? : 1950 ?Acct:[id number] ? Age/Sex: 73 / F ?ADM Date: 11/29/23 ? Loc: HO.MAMMO ? Attending Dr: Kera Maria MD ? Ordering Physician: Kera Maria MD ?Results: 1Negative ? Date of Service: 11/29/23 ?Follow Up: 1 Year From Orig ?? inal Mammogram ? Procedure(s): MM tomosynthesis screening BI ?? Accession Number(s): [id number] ? cc: Kera Maria MD ? EXAMINATION: ?? MM SCREENING DIGITAL BREAST TOMOSYNTHESIS, BILATERAL ? CLINICAL INFORMATION: ? Screening. Asymptomatic. ? COMPARISON: ?? Mammography: This study is compared with prior exams dating back to ? TECHNIQUE: ?? Digital breast tomosynthesis is performed in both the craniocaudal and ?? mediolateral oblique views along with computer-aided detection (CAD). ?? Synthesized 2D images are generated from the tomosynthesis. ? FINDINGS: ?? The breasts are almost entirely fatty (ACR BI-RADS breast composition ?? Category a). ? There are no significant masses, abnormal calcifications, or other ?? abnormalities. ? MM/MM tomosynthesis screening BI ?? IMPRESSION: ?? No mammographic evidence of malignancy. ? ASSESSMENT: ? BI-RADS BI-RADS 1 - Negative ? RECOMMENDATION: ?? Routine annual mammography screening. ? 1 year F/U ? This examination should not preclude the clinical evaluation of a ?? suspicious palpable abnormality. ? This patient's information was entered into a reminder system with a ?? target due date for their next mammogram. ? Dictated By: ?Yesica Villar MD ? Signed By: ?<Electronically signed by Yesica Villar MD in OV> ? 12/27/23 0918 ? DD/ 1025 ? TD/TT: ? Chief Environmental Commitment Officer: ? Procedure Note Dontonyainterpreter, Image - 12/27/2023 [facility] [address] [place] [address] Mammography Report Signed Patient: Kaylee Penny#: [id number] : 1Acct:[id number] Age/Sex: 73 / FADM Date: 11/29/23 Loc: [facility] Attending Dr: Kera Maria MD Ordering Physician: Kera Mariaesults: 1Negative Date of Service: 11/29/23Follow Up: 1 Year From Orig inal Mammogram Procedure(s): MM tomosynthesis screening BI Accession Number(s): [id number] cc: Kera Maria MD EXAMINATION: MM SCREENING DIGITAL BREAST TOMOSYNTHESIS, BILATERAL CLINICAL INFORMATION: Screening. Asymptomatic. COMPARISON: Mammography: This study is compared with prior exams dating back to TECHNIQUE: Digital breast tomosynthesis is performed in both the craniocaudal and mediolateral oblique views along with computer-aided detection (CAD). Synthesized 2D images are generated from the tomosynthesis. FINDINGS: The breasts are almost entirely fatty (ACR BI-RADS breast composition Category a). There are no significant masses, abnormal calcifications, or other abnormalities. MM/MM tomosynthesis screening BI IMPRESSION: No mammographic evidence of malignancy. ASSESSMENT: BI-RADS BI-RADS 1 - Negative RECOMMENDATION: Routine annual mammography screening. 1 year F/U This examination should not preclude the clinical evaluation of a suspicious palpable abnormality. This patient's information was entered into a reminder system with a target due date for their next mammogram. Dictated By: Yesica Villar MD Signed By: <Electronically signed by Yesica Villar MD in OV> 12/27/23 0918 DD/ 1025 TD/TT: Chief Environmental Commitment Officer: Kera Maria MD IMG BI PROCEDURES Edited Result - Final * (ABNORMAL) Lipid Panel with Reflex to Direct LDL (06/20/2023 1:03 PM EST) Triglycerides 190(H) <150 mg/dL [facility] Comment:Desirable Triglyceri de: less than 150 mg/dLBorderline High Triglyceride 150-199 mg/dLHigh Triglyceride: 200-499 mg/dLVery High Triglyceride: greater than or equal to 5OO mg/dL Cholesterol 120 <200 mg/dL [facility] Comment:Desirable Cholestero l: less than 200 mg/dLBorderline High Cholesterol: 200-239 mg/dLHigh Cholesterol: greater than 239 mg/dL LDL Cholesterol Calculated 33 <100 mg/dL [facility] Comment:Desirable LDL: less than 100 mg/dLNear Optimal/Above Optimal LDL: 110- 129 mg/dLBorderline High LDL: 130-159 mg/dLHigh LDL: 160-189 mg/dLVery High LDL: greater than or equal to 190 mg/dL HDL Cholesterol 49 >40 mg/dL [facility] Comment:Desirable HDL: great er than 40 mg/dL Note: This HDL assay may give artificially low results in patients with liver disease. Blood 06/20/2023 1:03 PM EST 06/20/2023 3:54 PM EST Kera Maria MD LAB BLOOD ORDERABLES Final Resul t Performing Organization Address [facility] de Phone Number [facility] [address] [place] [phone] * (ABNORMAL) Albumin, Random Urine W/Creatinine (06/20/2023 1:03 PM EST) Creatinine, Urine 187.00 mg/dL [facility] Microalbumin Urine 170.0 mg/L [facility] Microalbum Creatinine Ratio Ur 90.9(H) <30 ug/mg cr [facility] Comment:Albumin/Creatinine R atio Reference Ranges: Normal: < 30 ug/mg creatinine Microalbuminuria: 30 - 300 ug/mg creatinineClinical Albuminuria: > 300 ug/mg creatinine Urine 06/20/2023 1:03 PM EST 06/20/2023 4:17 PM EST us Kera Maria MD LAB URINE ORDERABLES Final Resul t Performing Organization Address [facility] de Phone Number [facility] [address] [place] [phone] * Colonoscopy (04/01/2018) Colonoscopy Normal Normal Chey Provider HEALTH MAINTENANCE Final Result from Last 3 Months or Most Recently Relevant to Health Maintenance Insurance [place] [employer] SU[employer] [facility] [address] [place] [id number] Care Teams Cattery Operator Relationship Specialty Start Date End Date Kera Maria MD [address] [place] [address] PCP - General Family Medicine 07/22/18
--- OUTSIDE RECORDS SUMMARY | 2024-09-02 15:08 | XMS_ITS | Encounter Summary ---
Author Organization [employer] Address 75 [facility] 7t [place] [address] Care Team Providers Care Senior Mainframe Developer Name Role Phone Kera Maria MD Primary Care Provider [phone] Encounter Details Date Type Department Care Team (Late st Contact Info) Description 03/11/2023 Orders Only [facility] CHC MED & PEDS [address] [place], [place] [phone] Elena Unger LPN Social History Tobacco Use [...] AM EST Office Visit [facility] MEDICINE [address] [place] [phone] Kera Maria MD [address] [place] [address] documented as of this encounter Visit Diagnoses Not on filedocumented in this encounter Care Teams Senior Mainframe Developer Relationship Specialty Start Date End Date Kera Maria MD [address] [place] [address] PCP - General Family Medicine 07/22/18 documented as of this encounter
--- OUTSIDE RECORDS SUMMARY | 2024-09-02 15:08 | XMS_ITS | Encounter Summary ---
Author Organization [employer] [facility] Address 75 [facility] 7t [place] [address] Care Team Providers Care Deckhand Crab Boat Name Role Phone Kera Maria MD Primary Care Provider [phone] Encounter Details Date Type Department Care Team (Late st Contact Info) Description 01/11/2023 Orders Only [facility] MEDICINE [address] [place] [phone] Juhi Onofre LPN Social History Tobacco Use [...] Description 09/08/2024 10:30 AM EST Office Visit [facility] MEDICINE [address] [place] [phone] Kera Maria MD [address] [place] [phone] documented as of this encounter Visit Diagnoses Not on filedocumented in this encounter Care Teams Deckhand Crab Boat Relationship Specialty Start Date End Date Kera Maria MD [address] [place] [address] PCP - General Family Medicine 07/22/18 documented as of this encounter
--- OUTSIDE RECORDS SUMMARY | 2024-09-02 15:09 | XMS_ITS | Encounter Summary ---
Author Organization [employer] Address [address] [facility] [address] 7t [place] [address] Care Team Providers Care Fishing Accessories Maker Name Role Phone Kera Maria MD Primary Care Provider [phone] Reason for Visit * Reason Comments Med Refill Encounter Details Date Type Department Care Team ([facility] st Contact Info) Description 07/04/2023 Refill [facility] CHC MED & PEDS [address] [place], [place] [phone] Kera Maria MD [address] [place], [place] [phone] Social History Tobacco Use Types Packs/Day Years [...] 09/08/2024 10:30 AM EST Office Visit [facility] MEDICINE [address] [place] [address] Kera Maria MD [address] [place] [address] documented as of this encounter Visit Diagnoses Not on filedocumented in this encounter Care Teams Fishing Accessories Maker Relationship Specialty Start Date End Date Kera Maria MD [address] [place] [address] PCP - General Family Medicine 07/22/18 documented as of this encounter
--- OUTSIDE RECORDS SUMMARY | 2024-09-02 15:09 | XMS_ITS | Encounter Summary ---
Author Organization [employer] Address 75 [facility] 7t [place] [address] Care Team Providers Care Firer Helper Name Role Phone Kera Maria MD Primary Care Provider [phone] Reason for Visit * Reason Onset Date Comments Results 06/26/2023 Encounter Details Date Type Department Care Team ([facility] Contact Info) Description 06/26/2023 Telephone [facility] MEDICINE [address] [place], [place] [phone] Kera Maria MD [address] [place], [place] [phone] Results Social History Tobacco Use Types Packs/Day Years Used Date Smoking Tobacco: Never Smokeless Tobacco: Never Housing Stability Answer Date Recorded What is your housing situation today? I have brenelena yadav 06/20/[address] you [...] encounter Miscellaneous Notes * Telephone Encounter - Amy Jimenez - 06/26/2023 11:53 AM EST Tc from pt requesting results of xray to knee. Please contact pt at [phone] (language interpreter needed) documented in this encounter Plan of Treatment Upcoming Encounters Date Type Department Care Team (Late st Contact Info) Description 09/08/2024 10:30 AM EST Office Visit [facility] MEDICINE [address] [place] [address] Kera Maria MD [address] [place] [address] documented as of this encounter Visit Diagnoses Not on filedocumented in this encounter Care Teams Firer Helper Relationship Specialty Start Date End Date Kera Maria MD [address] [place] [address] PCP - General Family Medicine 07/22/18 documented as of this encounter
== END 2024-09-02 14:42 | disposition home or self-care (01) ==
PROVIDERS: PCP Family Medicine; Visit Provider Internal Medicine Nephrology
DX: E11.29 Type 2 diabetes mellitus with other diabetic kidney complication (principal); R80.9 Proteinuria, unspecified; I10 Essential (primary) hypertension
CPT/HCPCS: 99214

== ENCOUNTER → 2024-09-02 13:45 | Outpatient (BNVA) | payer OTHER, SELFPAY | PROVIDERS: PCP Family Medicine; Visit Provider Internal Medicine Nephrology | DX: E11.29 Type 2 diabetes mellitus with other diabetic kidney complication (principal); I10 Essential (primary) hypertension; R80.9 Proteinuria, unspecified | CPT/HCPCS: 99212 ==

== ENCOUNTER 2024-09-08 10:27 | Outpatient (REF) | payer OTHER, SELFPAY ==
--- OUTSIDE RECORDS SUMMARY | 2024-09-08 11:27 | XMS_ITS | Encounter Summary ---
Author Organization [employer] [facility] Address 75 [facility] 7t [place] [address] Care Team Providers Care Lining Folder Name Role Phone Kera Maria MD Primary Care Provider [phone] Encounter Details Date Type Department Care Team (Late st Contact Info) Description 08/09/2022 Abstract [facility] MEDICINE [address] [place], [place] [phone] Kera Maria MD [address] [place], [place] [phone] Social History Tobacco Use Types Packs/Day Years Used Date Smoking Tobacco: Never Assessed Comments Unknown Sex and Gender Information Value Date Recorded Sex Assigned at Female 05/21/2022 10:20 AM EDT Legal Sex Female 10:20 AM EDT Gender Identity Female 05/21/2022 10:20 AM EDT Sexual Orientation Straight 05/21/2022 10 :20 AM EDT documented as of this encounter Plan of Treatment Not on file documented as of this encounter Procedures Procedure Name Priority Date/Time Associated Diagnosis Comments MAMMOGRAPHY Routine 08/06/2022 documented in this encounter Results * Mammography (08/06/2022) Mammogram perform Anatomical Region Laterality Modality Other us Historical Provider HEALTH MAINTENANCE Final Result documented in this encounter Visit Diagnoses Not on filedocumented in this encounter Care Teams Lining Folder Relationship Specialty Start Date End Date Kera Maria MD [address] [place], [place] [phone] PCP - General Family Medicine 07/22/18 documented as of this encounter
--- OUTSIDE RECORDS SUMMARY | 2024-09-08 11:27 | XMS_ITS | Encounter Summary ---
Author Organization [employer] [facility] Address [address] [facility] 7t [place] [address] Care Team Providers Care Farmworker Poultry Name Role Phone Kera Maria MD Primary Care Provider [phone] Encounter Details Date Type Department Care Team (Late st Contact Info) Description 08/09/2022 Abstract [facility] MEDICINE [address] [place], [place] [phone] Kera Maria MD [address] [place], [place] [phone] Social History Tobacco Use Types Packs/Day Years [...] on file documented as of this encounter Visit Diagnoses Not on filedocumented in this encounter Care Teams Farmworker Poultry Relationship Specialty Start Date End Date Kera Maria MD [address] [place] [phone] PCP - General Family Medicine 07/22/18 documented as of this encounter
--- OUTSIDE RECORDS SUMMARY | 2024-09-08 11:28 | XMS_ITS | Encounter Summary ---
Author Organization [employer] Address 75 [facility] 7t [place] [address] Care Team Providers Care Dietary Worker Name Role Phone Kera Maria MD Primary Care Provider [phone] Reason for Visit * Reason Onset Date Comments Appointment Request 05/10/2023 Encounter Details Date Type Department Care Team ([facility] st Contact Info) Description 05/10/2023 Telephone [facility] MEDICINE [address] [place] [address] Kera Maria MD [address] [place] [address] Appointment Request Social History Tobacco Use Types [...] appt with PCP, any question contact pt [phone]. documented in this encounter Plan of Treatment Not on file documented as of this encounter Visit Diagnoses Not on filedocumented in this encounter Care Teams Dietary Worker Relationship Specialty Start Date End Date Kera Maria MD [address] [place] [address] PCP - General Family Medicine 07/22/18 documented as of this encounter
--- OUTSIDE RECORDS SUMMARY | 2024-09-08 11:28 | XMS_ITS | Clinical Summary ---
Demographics Address [address] [facility] [address] [place] [address] Mobile Phone Home Phone Preferred Language es Marital Status Unknown Christianity Affiliation Unknown Race Unknown Ethnic Group Unknown Author Organization [facility] Address [address] [place] [address] Phone Care Team Providers Care Wheel Installer Name Role Phone Kera Maria MD Primary Care Provider [phone] Allergies No known active allergies Medications aspirin [...] 05/25/2024, , 08/03/2020, Additional history exists [place] [address] [address] [id number] [facility] [facility] ([id number]) [place] [id number] Proxly [facility] ([id number]) Care Teams Wheel Installer Relationship Specialty Start Date End Date Kera Maria MD PCP - General 08/01/20
--- OUTSIDE RECORDS SUMMARY | 2024-09-08 11:28 | XMS_ITS | Encounter Summary ---
Author Organization [employer] Address 75 [facility] 7t [place] [address] Care Team Providers Care Refractory Bricklayer Name Role Phone Kera Maria MD Primary Care Provider [phone] Reason for Visit * Reason Comments Med Refill Encounter Details Date Type Department Care Team ([facility] Contact Info) Description 04/17/2024 Refill [facility] MEDICINE [address] [place], [place] [phone] Kera Maria MD [address] [place], [place] [phone] Social History Tobacco Use Types Packs/Day Years [...] on filedocumented in this encounter Care Teams Refractory Bricklayer Relationship Specialty Start Date End Date Kera Maria MD [address] [place] [address] PCP - General Family Medicine 07/22/18 documented as of this encounter
--- OUTSIDE RECORDS SUMMARY | 2024-09-08 11:28 | XMS_ITS | Encounter Summary ---
Author Organization [employer] Address 75 [facility] 7t [place] [address] Care Team Providers Care Cro Name Role Phone Kera Maria MD Primary Care Provider [phone] Encounter Details Date Type Department Care Team (Late st Contact Info) Description 10/15/2022 Orders Only [facility] MED & PEDS [address] [place], [place] [phone] Elena Unger LPN Social History Tobacco Use [...] on filedocumented in this encounter Care Teams Cro Relationship Specialty Start Date End Date Kera Maria MD [address] [place] [id number] PCP - General Family Medicine 07/22/18 documented as of this encounter
--- OUTSIDE RECORDS SUMMARY | 2024-09-08 11:28 | XMS_ITS | Encounter Summary ---
Author Organization [employer] Address [address] [facility] [address] 7t [place] [address] Care Team Providers Care Outsole Flexer Name Role Phone Kera Maria MD Primary Care Provider [phone] Encounter Details Date Type Department Care Team (Late st Contact Info) Description 09/08/2024 10:30 AM EST Office Visit [facility] [address] [place] [address] [phone] Kera Maria MD [address] [place], [place] [phone] BART (obstructive sleep apnea) (Primary Dx); S/P CABG x 3; Peripheral venous insufficiency; Ischemic heart disease; Essential hypertension; Metabolic dysfunction-associate d steatotic liver disease (MASLD); Mixed stress and urge urinary incontinence; Type 2 diabetes mellitus with hyperglycemia, with long-term current use of insulin (CMS/HCC); Dyslipidemia; Osteopenia of lumbar spine; History of fracture of pelvis Social History Tobacco Use Types Packs/Day Years Used Date Smoking Tobacco: Never Passive Smoke Exposure: Never Smokeless Tobacco: Never Housing Stability Answer Date Recorded What is your housing situation today? I have bren vicenta 06/20/[address] you li [...] AM EDT documented as of this encounter Last Filed Vital Signs Vital Sign Reading Time Taken Comments Blood Pressure 141/73 09/08/2024 9:57 AM EST Pulse 82 09/08/2024 9:57 AM EST Temperature 36 ??C (96.8 ??F) 09/08/2024 9:57 AM EST Respiratory Rate 17 09/08/2024 9:57 AM EST Oxygen Saturation - - Inhaled Oxygen Concentration - - Weight 73.9 kg (163 lb) 09/08/2024 9:57 AM EST Height - - Body Mass Index 28.87 05/25/2024 10:08 AM EST documented in this encounter Miscellaneous Notes * Assessment & Plan Note - Elena Hoyos MA - 09/08/2024 10:25 AM EST Associated Problem(s): Dyslipidemia -Last lipid profile: 06/20/23 -Medication: Crestor 40 [...] elevated CPK or LFT in the past. Ptagreed that her pain is most likely from her tendonitis and OAs. Pt would like to continue current regimen to minimize her ASCVD risk. * Assessment & Plan Note - Elena Hoyos MA - 09/08/2024 10:24 AM EST Associated Problem(s): Type 2 diabetes mellitus (CMS/[facility]) - A1C 9.0% on 05/25/24, worsened from [...] COVID, but patient declines. Aspirin use: Prescribed. * Assessment & Plan Note - Elena Hoyos MA - 09/08/2024 10:24 AM EST Associated Problem(s): Metabolic dysfunction-associated steatotic liver disease (MASLD) - following with [facility] - last US in November 2021 * Assessment & Plan Note - Elena Hoyos MA - 09/08/2024 10:23 AM EST Associated Problem(s): Essential hypertension -Goal BP < 140/90 per JNC-8 and < 130/80 per ACC/AHA guideline -Co-managed with solderer electronic and injection molding process technician -Slightly elevated BP, possibly due to her pain and current condition -Continue working on lifestyle modifications -Recommended self-monitoring BP. -Continue working on lifestyle modifications. -Continue current medications: amlodipine 10 mg daily; losartan 50 mg daily -Treatment Hx: metoprolol - discontinued due to dizziness * Assessment & Plan Note - Elena Hoyos MA - 09/08/2024 10:23 AM EST Associated Problem(s): Ischemic heart disease - CABG in 2005 - Following with [facility], last note from Aug 2022 - Stress test and myocardial perfusion imaging in Jun 2022, no ischemia - continue secondary preventative measures. * Assessment & Plan Note - Elena Hoyos MA - 09/08/2024 10:23 AM EST Associated Problem(s): BART (obstructive sleep apnea) -Sleep study on 10/28/18 confirmed BART -Followed by sleep clinic since 05/2019, last seen on 10/17/21, BiPAP setting was adjusted -Continue BiPAP IPAP 9 cmH2O and EPAP 5 cmH2O -?Tx for PLMS * Assessment & Plan Note - Kera Maria MD - 09/07/2024 6:43 PM ESTAssociated Problem(s): Osteopenia - last DEXA in Aug 2023. The lowest T-score -2.2 in lumbar spine; -1.9 in femoral neck documented in this encounter Plan of Treatment Not on file documented as of this encounter Procedures Procedure Name Priority Date/Time Associated Diagnosis Comments POCT GLYCOSYLATED HEMOGLOBIN (HGB A1C) Routine 09/08/2024 10:01 AM EST Type 2 diabetes mellitus with hyperglycemia, with long-term current use of insulin ([facility]) POCT GLUCOSE Routine 09/08/2024 10:00 AM EST Type 2 diabetes mellitus with hyperglycemia, with long-term current use of insulin ([facility]) documented in this encounter Results * (ABNORMAL) POCT glycosylated hemoglobin (Hgb A1c) (09/08/2024 10:01 AM EST) Hemoglobin A1C 12.3(A) 4.0 - 6.0 % QC Media Lot # [id number] Lot# Expiration Date Blood Capillary blood specimen / Unknown 09/08/2024 10:01 AM EST Kera Maria MD POINT OF CARE TEST ENTER/EDIT OR DERABLES Final Result * (ABNORMAL) POCT glucose manually resulted (09/08/2024 10:00 AM EST) Glucose Blood, POC 379(A) 60 - 200 mg/dL QC Media Lot # [id number] Lot# Expiration Date Blood Capillary blood specimen / Unknown 09/08/2024 10:00 AM EST Kera Maria MD POINT OF CARE TEST ENTER/EDIT OR DERABLES Final Result documented in this encounter Visit Diagnoses Diagnosis BART (obstructive sleep apnea)- Primary Obstructive sleep apnea (adult) (pediatric) S/P CABG x 3 Postsurgical aortocoronary bypass status Peripheral venous insufficiency Unspecified venous (peripheral) insufficiency Ischemic heart disease Other specified forms of chronic ischemic heart disease Essential hypertension Unspecified essential hypertension 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
--- OUTSIDE RECORDS SUMMARY | 2024-09-08 11:28 | XMS_ITS | Encounter Summary ---
Author Organization [employer] Address [address] [facility] [address] 7t [place] [address] Care Team Providers Care Burring Machine Operator Name Role Phone Kera Maria MD Primary Care Provider [phone] Encounter Details Date Type Department Care Team (Latest Contact Info) Description 09/08/2024 Travel Social History Tobacco Use Types Packs/Day Years [...] on filedocumented in this encounter Care Teams Burring Machine Operator Relationship Specialty Start Date End Date Kera Maria MD [address] [place] [address] PCP - General Family Medicine 07/22/18 documented as of this encounter
--- OUTSIDE RECORDS SUMMARY | 2024-09-08 11:28 | XMS_ITS | Encounter Summary ---
Author Organization [employer] [facility] Address [address] [facility] 7t [place] [address] Care Team Providers Care Viscosity Inspector Name Role Phone Kera Maria MD Primary Care Provider [phone] Encounter Details Date Type Department Care Team (Late st Contact Info) Description 10/15/2022 Orders Only [facility] MEDICINE [address] [place] [address] [phone] Juhi Onofre LPN Social History Tobacco Use [...] on filedocumented in this encounter Care Teams Viscosity Inspector Relationship Specialty Start Date End Date Kera Maria MD [address] [place], [place] [phone] PCP - General Family Medicine 07/22/18 documented as of this encounter
--- OUTSIDE RECORDS SUMMARY | 2024-09-08 11:28 | XMS_ITS | Encounter Summary ---
Author Organization [employer] Address 75 [facility] 7t [place] [address] Care Team Providers Care Projection Welding Machine Operator Name Role Phone Kera Maria MD Primary Care Provider [phone] Reason for Visit * Reason Onset Date Comments Results 06/26/2023 Encounter Details Date Type Department Care Team ([facility] Contact Info) Description 06/26/2023 Telephone [facility] MEDICINE [address] [place], [place] [phone] Kera Maria MD [address] [place], [place] [phone] Results Social History Tobacco Use Types Packs/Day [...] xray to knee. Please contact pt at [phone] (motor vehicle parts interpreter needed) documented in this encounter Plan of Treatment Not on file documented as of this encounter Visit Diagnoses Not on filedocumented in this encounter Care Teams Projection Welding Machine Operator Relationship Specialty Start Date End Date Kera Maria MD [address] [place] [phone] PCP - General Family Medicine 07/22/18 documented as of this encounter
--- OUTSIDE RECORDS SUMMARY | 2024-09-08 11:28 | XMS_ITS | Encounter Summary ---
Author Organization [employer] Address [address] [facility] 7t [place] [address] Care Team Providers Care Architectural Coating Finisher Name Role Phone Kear Maria MD Primary Care Provider [phone] Encounter Details Date Type Department Care Team (Late st Contact Info) Description 03/11/2023 Orders Only [facility] [address] [place], [place] [phone] Elena Unger LPN Social History Tobacco Use [...] on filedocumented in this encounter Care Teams Architectural Coating Finisher Relationship Specialty Start Date End Date Kera Maria MD [address] [place] [phone] PCP - General Family Medicine 07/22/18 documented as of this encounter
--- OUTSIDE RECORDS SUMMARY | 2024-09-08 11:28 | XMS_ITS | Encounter Summary ---
Author Organization [employer] Address [address] [facility] 7[address] [place] [address] Care Team Providers Care Link Trainer Operator Name Role Phone Kera Maria MD Primary Care Provider [phone] Encounter Details Date Type Department Care Team (Late st Contact Info) Description 05/01/2023 Orders Only [facility] MED & PEDS [address] [place], [place] [phone] Teresa Sotomayor MD [address] [place] [address] Social History Tobacco Use Types Packs/Day Years [...] EDT Narrative 05/13/2023 7:18 PM EDT ? [facility] ?[address] ?[place] [address] ? CT Scan Report ? Signed ? Patient: Sofía Penny ?MR#: ?? [id number] ? : 1950 ?Acct:[id number] ? Age/Sex: 72 / F ?ADM Date: 05/13/23 ? Loc: HO.ED ? Attending Dr: ? Ordering Physician: Tammi Andrew ?? Date of Service: 05/13/23 ?? Procedure(s): CT cervical spine wo IV con ?? Accession Number(s): [id number] ? cc: Tammi Andrew; Kera Maria MD [...] Halley Noonan MD in OV> ? 05/13/23 1915 ? DD/ ? TD/TT: ? Oral Communication Instructor: ELMO ? Procedure Note Donotuseinterpreter, Image - 05/13/[address] [place] [address] [address] Scan Report Signed Patient: Kaylee Penny#: [id number] : 1950cct:[id number] Age/Sex: 72 / FADM Date: 05/13/23 Loc: HO.ED Attending Dr: Ordering Physician: Tammi Andrew Date of Service: 05/13/23 Procedure(s): CT cervical spine wo IV con Accession Number(s): [id number] cc: Tammi Andrew; Kera Maria MD EXAMINATION: [...] MD in OV> 05/13/231914 DD/ 06 TD/TT: Oral Communication Instructor: MICHELETJ us [facility] External Provider IMG MRI PROCEDURES Edited Result - Final * MR Pelvis w/o Contrast (05/13/2023 6:07 PM EDT) Anatomical Region Laterality Modality Body, Pelvis Magnetic Resonan ce 05/13/2023 6:07 PM EDT Narrative 05/13/2023 7:01 PM EDT ? [facility] ?[address] ?[place], [place] [address] ? [address] Scan Report ? Signed ? Patient: Sofía Penny ?MR#: ?? [id number] ? : 1950 ?Acct:[id number] ? Age/Sex: 72 / F ?ADM Date: 05/13/23 ? Loc: HO.ED ? Attending Dr: ? Ordering Physician: Tammi Andrew ?? Date of Service: 05/13/23 ?? Procedure(s): CT pelvis wo IV con ?? Accession Number(s): [id number] ? cc: Tammi Andrew; Kera Maria MD [...] by Reid Moreno MD in OV> ? 10/ 1858 ? DD/ 1807 ? TD/TT: ? Oral Communication Instructor: SS ? Procedure Note [place], Image - 05/13/[address] [place] [address] [address] Scan Report Signed Patient: Kaylee Penny#: [id number] : [id number]:[id number] Age/Sex: 72 / FADM Date: 05/13/23 Loc: HO.ED Attending Dr: Ordering Physician: Tammi Andrew Date of Service: 05/13/23 Procedure(s): CT pelvis wo IV con Accession Number(s): [id number] cc: Tammi Andrew; Kera Maria MD EXAMINATION: [...] in OV> 05/13/23 1858 DD/ 1807 TD/TT: Oral Communication Instructor: PRIYA [facility] External Provider IMG MRI PROCEDURES Edited Result - Final * CT Head w/o Contrast (05/13/2023 6:07 PM EDT) Anatomical Region Laterality Modality Head, Neck Computed Tomogra phy 05/13/2023 6:07 PM EDT Narrative 05/13/2023 6:59 PM EDT ? [facility] ?[address] ?[place] [address] ? CT Scan Report ? Signed ? Patient: Sofía Penny ?MR#: ?? [id number] ? : 1950 ?Acct:[id number] ? Age/Sex: 72 / F ?ADM Date: 10/23/23 ? Loc: HO.ED ? Attending Dr: ? Ordering Physician: Tammi Andrew ?? Date of Service: 05/13/23 ?? Procedure(s): CT head/brain wo IV con ?? Accession Number(s): [id number] ? cc: Tammi Andrew; Kera Maria MD [...] by Halley Noonan MD in OV> ? 10/23/23 1856 ? DD/ 1807 ? TD/TT: ? Oral Communication Instructor: SUJ ? Procedure Note [place], Image - 05/13/[address] [place] [address] [address] Scan Report Signed Patient: Kaylee Penny#: [id number] : 1950cct:[id number] Age/Sex: 72 / FADM Date: 05/13/23 Loc: HO.ED Attending Dr: Ordering Physician: Tammi Andrew Date of Service: 05/13/23 Procedure(s): CT head/brain wo IV con Accession Number(s): [id number] cc: Tammi Andrew; Kera Maria MD EXAMINATION: [...] Noonan MD in OV> 05/13/23 1856 DD/ 1807 TD/TT: Oral Communication Instructor: ELMO [facility] External Provider IMG CT PROCEDURES Edited Result - Final * XR Hip right with Pelvis 1 view (05/13/2023 3:58 PM EDT) Anatomical Region Laterality Modality Lower Extremities, Hip Bilateral Radiograp hic Imaging 05/13/2023 3:58 PM EDT Narrative 05/13/2023 5:03 PM EDT ? [facility] ?[address] ?[place] [address] ?XRay Report ? Signed ? Patient: David Momin,Sofía ?MR#: ?? [id number] ? : 1950 ?Acct:[id number] ? Age/Sex: 72 / F ?ADM Date: 10/23/23 ? Loc: HO.ED ? Attending Dr: ? Ordering Physician: Tammi Andrew ?? Date of Service: 05/13/23 ?? Procedure(s): XR hip RT w PEL1V ?? Accession Number(s): [id number] ? cc: Tammi Andrew; Kera Maria MD [...] Oscar Oseguera MD in OV> ? 05/13/23 1539 ? DD/ 1558 ? TD/TT: ? Oral Communication Instructor: PD ? Procedure Note Nayely Holman - 05/13/[address] [address] XRay Report Signed Patient: Kaylee Penny#: [id number] : 1950cct:[id number] Age/Sex: 72 / FADM Date: 05/13/23 Loc: HO.ED Attending Dr: Ordering Physician: Tammi Andrew Date of Service: 05/13/23 Procedure(s): XR hip RT w PEL1V Accession Number(s): [id number] cc: Tammi Andrew; Kera Maria MD EXAMINATION: [...] in OV> 05/13/23 1659 DD/ 1558 TD/TT: Oral Communication Instructor: [facility] External Provider IMG XR PROCEDURES Final Result documented in this encounter Visit Diagnoses Not on filedocumented in this encounter Care Teams Link Trainer Operator Relationship Specialty Start Date End Date Kera Maria MD [address] [place] [address] PCP - General Family Medicine 07/22/18 documented as of this encounter
--- OUTSIDE RECORDS SUMMARY | 2024-09-08 11:28 | XMS_ITS | Encounter Summary ---
Author Organization [employer] Address [address] [facility] 7[address] [place] [address] Care Team Providers Care Shipping Clerk/Admin Name Role Phone Kera Maria MD Primary Care Provider [phone] Encounter Details Date Type Department Care Team (Late st Contact Info) Description 05/22/2023 Orders Only [facility] MED & PEDS [address] [place], [place] [phone] Juhi Onofre LPN Social History Tobacco Use [...] on filedocumented in this encounter Care Teams Shipping Clerk/Admin Relationship Specialty Start Date End Date Kera Maria MD [address] [place] [address] PCP - General Family Medicine 07/22/18 documented as of this encounter
--- OUTSIDE RECORDS SUMMARY | 2024-09-08 11:28 | XMS_ITS | Encounter Summary ---
Author Organization [employer] Address [address] [facility] [address] [place] [address] Care Team Providers Care Coffee Brewer Name Role Phone Kera Maria MD Primary Care Provider [phone] Encounter Details Date Type Department Care Team (Late st Contact Info) Description 09/03/2024 Abstract [facility] MED[facility] [address] [place], [place] [phone] Joanne Jimenez MA Social History Tobacco Use Types Packs/Day Years Used Date Smoking Tobacco: Never Passive Smoke Exposure: Never Smokeless Tobacco: Never Housing Stability Answer Date Recorded What is your housing situation today? I have bren sing 06/20/[address] you li [...] Procedure Name Priority Date/Time Associated Diagnosis Comments DIABETES EYE EXAM Routine 01/06/2024 documented in this encounter Results * Diabetes Eye Exam (01/06/2024) Eye Exam Normal Normal 01/06/2024 us Historical Provider HEALTH MAINTENANCE Final Result documented in this encounter Visit Diagnoses Not on filedocumented in this encounter Care Teams Coffee Brewer Relationship Specialty Start Date End Date Kera Maria MD [address] [place] [phone] PCP - General Family Medicine 07/22/18 documented as of this encounter
--- OUTSIDE RECORDS SUMMARY | 2024-09-08 11:28 | XMS_ITS | Clinical Summary ---
Demographics Address [address] [facility] [address] [place] [address] Mobile Phone Work Phone Home Phone Preferred Language es Marital Status Buddhism Affiliation Unknown Race Other Race Ethnic Group or Author Organization [employer] Address [address] [address] [place] [address] Care Team Providers Care Knobber Name Role Phone Kera Maria MD Primary Care Provider [phone] Allergies Active Allergy Reactions Criticality Noted Date Comments Latex 06/21/2023 Medications cholecalciferol (Vitamin D-3) 25 MCG tablet TAKE 1 TABLET BY MOUTH EVERY MORNING 09/25/19 23 Active Misc. Devices (Pulse Oximeter For Finger) miscIndications:CO VID-19 To check your oxygen level every 4 hours. Call the office if O2 Sat drops below 90% 1 each 04/30/[address] 10 MG tablet 06/06/20 23 Active magnesium oxide (Mag-Ox) 400 (240 Mg) MG tablet 06/06/20 23 Active nitrofurantoin (Macrodantin) 50 MG capsule TAKE 1 CAPSULE BY MOUTH AT BEDTIME TAKE WITH FOOD 06/06/20 23 Active Elmiron 100 MG capsule 06/06/20 23 Active riboflavin (vitamin B2) 100 mg tablet tablet 06/06/20 23 Active Simethicone Ultra Strength 180 MG capsule 06/06/20 23 Active UltiCare Short Pen [place] 31G X 8 MM miscIndications:Ty pe 2 diabetes mellitus with hyperglycemia (CMS/HCC) USE FIVE TIMES DAILY DIRECTED 100 each 11 08/26/19 24 Active Aspirin Adult Low Strength 81 MG EC tablet TAKE 1 TABLET BY MOUTH EVERY MORNING 30 tablet 11 10/04/19 24 Active cholecalciferol 25 MCG tablet TAKE 1 TABLET BY MOUTH EVERY MORNING 30 tablet 11 10/04/19 24 Active glucose blood (OneTouch Ultra) test stripIndications:T ype 2 diabetes mellitus with other specified complication, unspecified whether ocean transportation intermediary insulin use ([facility]) TEST BLOOD SUGAR 3 TIMES A DAY 100 strip 11 10/10/19 24 Active Lancets (OneTouch Delica Plus Ooirlv90U) miscIndications:Ty pe 2 diabetes mellitus with other specified complication, unspecified whether prison insulin use ([facility]) TEST BLOOD SUGAR 3 TIMES A DAY 100 each 11 10/10/19 24 Active montelukast (Singulair) 10 MG tablet TAKE 1 TABLET BY MOUTH AT BEDTIME 90 tablet 3 01/01/20 24 Active metFORMIN XR (Glucophage-XR) 750 MG 24 hr tablet TAKE 1 TABLET BY MOUTH TWICE DAILY IN THE MORNING AND IN THE EVENING WITH MEALS 180 tablet 3 01/01/20 24 Active Bisacodyl EC 5 MG EC tablet TAKE 2 TABLETS BY MOUTH AT BEDTIME FOR 2 DAYS 10/22/19 24 Active Noy-Tussin DM 10-100 MG/5ML liquid TAKE 5ml BY MOUTH EVERY 4 HOURS NEEDED FOR COUGH FOR UP TO 10 DAYS 04/30/20 23 Active PEG 2693-[id number]-GfVid-NaC l-NaSulf (PEG-3350/Electrol ytes) 236 g reconstituted solution MIX WITH WATER AND DRINK 240 ML EVERY 10 MINUTES UNTIL FECAL EFFLUENT IS CLEAR DO NOT EXCEED 1/2 BOTTLE 10/22/19 24 Active furosemide (Lasix) 20 MG tablet Take 20 mg by mouth Once per day. 02/25/20 24 Active Alcohol Swabs (Alcohol Prep) 70 % padsIndications:Ty pe 2 diabetes mellitus with hyperglycemia ([facility]) USE DIRECTED WITH INSULIN 100 each 11 03/04/20 24 Active celecoxib (CeleBREX) 200 MG capsule TAKE 1 CAPSULE BY MOUTH EVERY TWELVE HOURS NEEDED FOR PAIN WITH FOOD 40 capsule 1 05/25/20 24 Active Dulaglutide (Trulicity) 1.5 MG/0.5ML solution auto-injectorIndic ations:Type 2 diabetes mellitus with hyperglycemia, with long-term current use of insulin ([facility]) Inject 1.5 mg under the skin 1 (one) time per week. 2 mL 11 05/25/20 24 Active alendronate (Fosamax) 70 MG tablet Take 1 tablet (70 mg) by mouth every 7 (seven) days. Take in the morning with a full glass of water, on an empty stomach, and do not take anything else by mouth or lie down for the next 30 min. 12 tablet 3 05/25/20 24 025 Active amLODIPine (Norvasc) 10 MG tablet TAKE 1 TABLET BY MOUTH EVERY MORNING 90 tablet 3 05/28/20 24 Active ezetimibe (Zetia) 10 MG tabletIndications: Mixed hyperlipidemia TAKE 1 TABLET BY MOUTH AT BEDTIME 90 tablet 3 05/28/20 24 Active losartan (Cozaar) 50 MG tablet TAKE 1 TABLET BY MOUTH AT BEDTIME 90 tablet 3 05/28/20 24 Active levocetirizine (Xyzal) 5 MG tabletIndications: Allergic rhinitis, unspecified seasonality, unspecified trigger TAKE 1 TABLET BY MOUTH EVERY EVENING 90 tablet 1 06/30/20 24 Active traZODone (Desyrel) 50 MG tabletIndications: Depression, unspecified depression type TAKE 1 TABLET BY MOUTH AT BEDTIME 90 tablet 1 06/30/20 24 Active rosuvastatin (Crestor) 40 MG tablet TAKE 1 TABLET BY MOUTH AT BEDTIME 90 tablet 1 06/30/20 24 Active Lantus SoloStar 100 UNIT/ML pen INJECT 16-18 UNITS SUBCUTANEOUSLY EVERY EVENING DIRECTED 15 mL 11 08/04/19 25 Active Active Problems Problem Noted Date Diagnosed Date Osteopenia 09/07/2024 Assessment & Plan (09/07/2024 6:43 PM EST): - last DEXA in Aug 2023. The lowest T-score -2.2 in lumbar spine; -1.9 in femoral neck History of fracture of pelvis 09/07/2024 Coccyx pain 05/30/2024 Assessment & Plan (05/30/2024 6:32 AM EST): - patient has history of hemorrhoids and coccyx pain. Worsened since the fall resulting pelvis fracture. - patient requests a cushion for the pain; will check if there is DME to alleviate her pain. BART (obstructive sleep apnea) 06/20/2023 Assessment & Plan (09/08/2024 10:23 AM EST): -Sleep study on 10/28/18 confirmed BART -Followed by sleep clinic since 05/2019, last seen on 10/17/21, BiPAP setting was adjusted -Continue BiPAP IPAP 9 cmH2O and EPAP 5 cmH2O -?Tx for PLMS Assessment & Plan (05/29/2024 3:18 PM EST): [...] liver disease (MASLD) 06/20/2023 Assessment & Plan (09/08/2024 10:24 AM EST): - following with [facility] - last US in November 2021 Assessment & Plan (05/29/2024 3:20 PM EST): - following with [facility] - last US in November 2021 Assessment & Plan (06/20/2023 5:47 AM EST): - following with [facility] - last US in November 2021 Restrictive airway disease 06/20/2023 Assessment & Plan (05/29/2024 3:18 PM EST): - evaluated by [facility] - last PFT in December 2022, no obstructive airway disease / RAD - breathing exercise Assessment & Plan (06/20/2023 6:01 AM EST): - evaluated by [facility] - last PFT in December 2022, no obstructive airway disease / RAD - breathing exercise Proteinuria 10/28/2020 Chronic interstitial cystitis 11/25/2017 Assessment & Plan (05/29/2024 3:22 PM EST): Seen by [facility] urology provider on 02/08/22 for f/u recurrent UTI and IC. Pt currently on Elmiron and nitrofurantoin per note. Assessment & Plan (06/20/2023 5:26 AM EST): Seen by [facility] urology provider on 02/08/22 for f/u recurrent UTI and IC. Pt currently on Elmiron and nitrofurantoin per note. Dyslipidemia 08/29/2017 06/12/2023 Assessment & Plan (09/08/2024 10:25 AM EST): -Last lipid profile: 06/20/23 -Medication: [...] minimize her ASCVD risk. Assessment & Plan (05/30/2024 6:35 AM EST): [...] heart disease 01/25/2016 3 Assessment & Plan (09/08/2024 10:23 AM EST): - CABG in 2005 - Following with [facility], last note from Aug 2022 - Stress test and myocardial perfusion imaging in Jun 2022, no ischemia - continue secondary preventative measures. Assessment & Plan (05/29/2024 3:19 PM EST): - CABG in 2005 - Following with [facility], last note from Aug 2022 - Stress test and myocardial perfusion imaging in Jun 2022, no ischemia - continue secondary preventative measures. Assessment & Plan (06/20/2023 6:00 AM EST): - CABG in 2006 - Following with [facility], last note from Aug 2022 - Stress test and myocardial perfusion imaging in Jun 2022, no ischemia - continue secondary preventative measures. Gastroesophageal reflux disease 10/12/2015 06/12/2023 Mixed stress and urge urinary incontinence 10/1106/12/2023 Atherosclerosis of [place] co ronary artery of [place] heart without angina pectoris 04/25/2015 06/12/2023 Insomnia 04/25/2015 06/12/2023 Obesity 04/25/2015 06/12/2023 Essential hypertension 04/25/2015 Assessment & Plan (09/08/2024 10:23 AM EST): -Goal BP < 140/90 per JNC-8 and < 130/80 per ACC/AHA guideline -Co-managed with utilities operator and lace roller -Slightly elevated BP, possibly due to her pain and current condition -Continue working on lifestyle modifications -Recommended self-monitoring BP. -Continue working on lifestyle modifications. -Continue current medications: amlodipine 10 mg daily; losartan 50 mg daily -Treatment Hx: metoprolol - discontinued due to dizziness Assessment & Plan (05/29/2024 3:20 PM EST): -Goal BP < 140/90 per JNC-8 and < 130/80 per ACC/AHA guideline -Co-managed with utilities operator and lace roller -Slightly elevated BP, possibly due to her [...] < 130/80 per ACC/AHA guideline -Co-managed with utilities operator and lace roller -Slightly elevated BP, possibly due to her pain and current condition -Continue working on lifestyle modifications -Recommended self-monitoring BP. -Continue working on lifestyle modifications. -Continue current medications: amlodipine 10 mg daily; losartan 50 mg daily -Treatment Hx: metoprolol - discontinued due to dizziness Type 2 diabetes mellitus 01/05/2013 023 Assessment & Plan (09/08/2024 10:24 AM EST): - A1C 9.0% on 05/25/24, [...] declines. Aspirin use: Prescribed. Assessment & Plan (05/30/2024 6:39 AM EST): [...] (05/24/2024 6:20 AM EST): - following with [facility], last seen in May 2023 - [...] Plan (06/20/2023 5:25 AM EST): Seen by [facility] urology provider on 02/08/22 for f/u recurrent UTI and IC. Pt currently on Elmiron and nitrofurantoin. -Last UTI DECEMBER 2021. -Cont Elmiron and nitrofurantoin. 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/16/2005 06/12/2023 Resolved Problems Problem Noted Date Diagnosed Date Resolved Date Disorder of vein 06/26/2018 06/12/2023 06/20/2023 Encounters Date Type Department Care Team Description 09/08/2024 10:30 AM EST Office Visit [facility] [address] [place] [phone] Kera Maria MD BART (obstructive sleep apnea) (Primary Dx); S/P CABG x 3; Peripheral venous insufficiency; Ischemic heart disease; Essential hypertension; Metabolic dysfunction-associate d steatotic liver disease (MASLD); Mixed stress and urge urinary incontinence; Type 2 diabetes mellitus with hyperglycemia, with long-term current use of insulin ([facility]); Dyslipidemia; Osteopenia of lumbar spine; History of fracture of pelvis 09/08/2024 Travel 09/03/[address] [address] Joanne Jimenez MA chart prep 09/03/2024 Abstract [facility] [address] [place] [address] Joanne Jimenez MA 08/03/2024 Refill [facility] [address] [place] [address] Briana Ambrose ANP 06/29/2024 Refill [facility] [address] [place] [address] Kera Maria MD Allergic rhinitis, unspecified seasonality, unspecified trigger; Depression, unspecified depression type from Last 3 Months Immunizations Name Administration [...] Tobacco: Never Tobacco Cessation:Counseling Given: Not Answered Housing Stability Answer Date Recorded What is [...] 17 09/08/2024 9:57 AM EST Oxygen Saturation 98% 05/25/2024 10:08 AM EST Inhaled Oxygen Concentration - - Weight 73.9 kg (163 lb) 09/08/2024 9:57 AM EST Height 160 cm (5' 3 ) 05/25/2024 10:08 AM EST Body Mass Index 28.87 05/25/2024 10:08 AM EST Plan of Treatment Health Maintenance Due Date Last Done Comments CT Colonography 1950 FIT DNA/Cologuard 1950 FIT 1950 FOBT 1950 Sigmoidoscopy 1950 RSV Patients and Patients Aged 60 years or older (1 - Risk 60-74 years 1-dose series) 2011 Colonoscopy 04/01/2023 04/01/2018 Colorectal Cancer Screening 04/01/2023 COVID-19 Vaccine ( season) 2024 08/23/2021, 10/21/2020, 09/23/2020 Depression Screening 06/20/2024 06/20/2023, 06/20/20 Diabetes: Urine Protein Screening 06/20/2024 06/20/2023, 05/29/2021 Lipid Panel 06/20/2024 06/20/2023, 05/29/2021 SDOH Screening 06/20/2024 06/20/2023 Hepatitis A Vaccines (2 of 2 - Risk 2-dose series) 11/22/2024 05/25/2024 Diabetes: Hemoglobin A1C 12/06/2024 025, 05/23/2024, 06/21/2023, Additional history exists Alcohol/Substance Use Screening 05/25/2025 05/25/2024 Diabetes: Foot Exam 05/25/2025 05/25/2024, 05/25/2024, 05/25/2024, Additional history exists Tobacco Screening 05/25/2025 05/25/2024 Mammogram 11/28/2025 11/29/2023, 07/22, 08/06/2022, Additional history exists Eye Exam 01/05/2026 01/06/2024 DTaP/Tdap/Td Vaccines (3 - Td or Tdap) [...] on patient's age to complete this topic Hepatitis C Screening Discontinued IPV Vaccines Aged Out No longer eligi [...] hyperglycemia, with long-term current use of insulin ([facility]) POCT GLUCOSE Routine 09/08/2024 10:00 AM EST Type 2 diabetes mellitus with hyperglycemia, with long-term current use of insulin ([facility]) DIABETES EYE EXAM Routine 01/06/2024 BI MAMMOGRAM SCREENING TOMOSYNTHESIS BILATERAL Routine 11/29/2023 10:25 AM EDT ALBUMIN, RANDOM URINE W/CREATININE Routine 06/20/2023 1:03 PM EST Type 2 diabetes mellitus without complication, with long-term current use of insulin ([facility]) LIPID PANEL WITH REFLEX TO DIRECT LDL Routine 06/20/2023 1:03 PM EST Type 2 diabetes mellitus without complication, with long-term current use of insulin ([facility]) Dyslipidemia COLONOSCOPY Routine 04/01/2018 from Last 3 Months or Most Recently Relevant to Health Maintenance Results * (ABNORMAL) POCT glycosylated hemoglobin (Hgb A1c) (09/08/2024 10:01 AM EST) Hemoglobin A1C 12.3(A) 4.0 - 6.0 % QC Media Lot # [id number] Lot# Expiration Date Blood Capillary blood specimen / Unknown 09/08/2024 10:01 AM EST us Kera Maria MD POINT OF CARE TEST ENTER/EDIT OR DERABLES Final Result * (ABNORMAL) POCT glucose manually resulted (09/08/2024 10:00 AM EST) Glucose Blood, POC 379(A) 60 - 200 mg/dL QC Media Lot # [id number] Lot# Expiration Date 009 Blood Capillary blood specimen / Unknown 09/08/2024 10:00 AM EST us Kera Maria MD POINT OF CARE TEST ENTER/EDIT OR DERABLES Final Result * Diabetes Eye Exam (01/06/2024) Eye Exam Normal Normal 01/06/2024 us Historical Provider MD HEALTH MAINTENANCE Final Result * BI Mammogram Screening Tomosynthesis Bilateral (11/29/2023 10:25 AM EDT) Anatomical Region Laterality Modality Breast Bilateral Mammography 11/29/2023 10:2 5 AM EDT Narrative 12/27/2023 9:22 AM EDT ? [facility] ? [address] ?[place], [place] [address] ? Mammography Report ? Signed ? Patient: Sofía Penny ?MR#: ?? [id number] ? : 1950 ?Acct:[id number] ? Age/Sex: 73 / F ?ADM Date: 11/29/23 ? Loc: HO.MAMMO ? Attending Dr: Kera Maria MD ? Ordering Physician: Kera Maria MD ?Results: 1Negative ? Date of Service: 11/29/23 ?Follow Up: 1 Year From Orig ?? inal Mammogram ? Procedure(s): MM tomosynthesis screening BI ?? Accession Number(s): [id number] ? cc: Kera Maria MD ? EXAMINATION: [...] by Yesica Villar MD in OV> ? 12/27/23917 ? DD/ 1025 ? TD/TT: ? Payroll Consultant: ? Procedure Note [place], [place] - 12/27/2023 [facility] [address] [place] [address] Mammography Report Signed Patient: Kyalee Penny#: [id number] : 1950cct:[id number] Age/Sex: 73 / FADM Date: 11/29/23 Loc: [facility] Attending Dr: Kera Maria MD Ordering Physician: Kera Maria MDResults: 1Negative Date of Service: 11/29/23Follow Up: 1 Year From Orig inal Mammogram Procedure(s): MM tomosynthesis screening BI Accession Number(s): [id number] cc: Kera Maria MD EXAMINATION: MM SCREENING [...] in OV> 12/27/23 0918 DD/ 1025 TD/TT: Payroll Consultant: Kera Maria MD IM BI PROCEDURES Edited Result - Final * (ABNORMAL) Lipid Panel with Reflex to Direct LDL (06/20/2023 1:03 PM EST) Triglycerides 190(H) <150 mg/dL [facility] Comment:Desirable Triglyceri de: less than 150 mg/dLBorderline High Triglyceride 150-199 mg/dLHigh Triglyceride: 200-499 mg/dLVery High Triglyceride: greater than or equal to 5OO mg/dL Cholesterol 120 <200 mg/dL [facility] Comment:Desirable Cholestero l: less than 200 mg/dLBorderline High Cholesterol: 200-239 mg/dLHigh Cholesterol: greater than 239 mg/dL LDL Cholesterol Calculated 33 <100 mg/dL [facility] Comment:Desirable LDL: less than 100 mg/dLNear Optimal/Above Optimal LDL: 110- 129 mg/dLBorderline High LDL: 130-159 mg/dLHigh LDL: 160-189 mg/dLVery High LDL: greater than or equal to 190 mg/dL HDL Cholesterol 49 >40 mg/dL [facility] Comment:Desirable HDL: great er than 40 mg/dL Note: This HDL assay may give artificially low results in patients with liver disease. Blood 06/20/2023 1:03 PM EST 06/20/2023 3:54 PM EST Kera Maria MD LAB BLOOD ORDERABLES Final Resul t Performing Organization Address [facility] de Phone Number [facility] [address] [place] [phone] * (ABNORMAL) Albumin, Random Urine W/Creatinine (06/20/2023 1:03 PM EST) Creatinine, Urine 187.00 mg/dL [facility] Microalbumin Urine 170.0 mg/L [facility] Microalbum Creatinine Ratio Ur 90.9(H) <30 ug/mg cr [facility] Comment:Albumin/Creatinine R atio Reference Ranges: Normal: < 30 ug/mg creatinine Microalbuminuria: 30 - 300 ug/mg creatinineClinical Albuminuria: > 300 ug/mg creatinine Urine 06/20/2023 1:03 PM EST 06/20/2023 4:17 PM EST Kera Maria MD LAB URINE ORDERABLES Final Resul t Performing Organization Address [facility] Co de Phone Number [facility] [address] [place] [phone] * Hm Colonoscopy (04/01/2018) Colonoscopy Normal Normal Chey Provider HEALTH MAINTENANCE Final Result from Last 3 Months or Most Recently Relevant to Health Maintenance Insurance [facility] STANDARD ARCHIE REILLY O-SNP Care Teams Knobber Relationship Specialty Start Date End Date Kera Maria MD [address] [place] [phone] PCP - General Family Medicine 07/22/18
--- OUTSIDE RECORDS SUMMARY | 2024-09-08 11:28 | XMS_ITS | Encounter Summary ---
Author Organization [employer] Address [address] [facility] [address]t [place] [address] Care Team Providers Care Electric Motor Controls Assembler Name Role Phone Kera Maria MD Primary Care Provider [phone] Encounter Details Date Type Department Care Team (Late st Contact Info) Description 04/09/2023 Orders Only [facility] [address] [place], [place] [phone] Juhi Onofre LPN Social History Tobacco Use [...] on filedocumented in this encounter Care Teams Electric Motor Controls Assembler Relationship Specialty Start Date End Date Kera Maria MD [address] [place] [phone] PCP - General Family Medicine 07/22/18 documented as of this encounter
--- OUTSIDE RECORDS SUMMARY | 2024-09-08 11:28 | XMS_ITS | Encounter Summary ---
Author Organization [employer] [facility] Address [address] [facility] [address] [place] [address] Care Team Providers Care Mainframe Systems Engineer Name Role Phone Kera Maria MD Primary Care Provider [phone] Encounter Details Date Type Department Care Team (Late st Contact Info) Description 01/11/2023 Orders Only [facility] [address] [place] [phone] Juhi Onofre LPN Social History Tobacco Use [...] on filedocumented in this encounter Care Teams Mainframe Systems Engineer Relationship Specialty Start Date End Date Kera Maria MD [address] [place], [place] [phone] PCP - General Family Medicine 07/22/18 documented as of this encounter
--- OUTSIDE RECORDS SUMMARY | 2024-09-08 11:28 | XMS_ITS | Encounter Summary ---
Author Organization [employer] Address [address] [facility] [address] [place] [address] Care Team Providers Care Supplier Quality Specialist Name Role Phone Kera Maria MD Primary Care Provider [phone] Reason for Visit * Reason Onset Date Comments chart prep 09/03/2024 Encounter Details Date Type Department Care Team ([facility] st Contact Info) Description 09/03/2024 Telephone [facility] [address] [place], [place] [phone] Joanne Jimenez MA chart prep Social History Tobacco Use Types Packs/Day Years [...] encounter Miscellaneous Notes * Telephone Encounter - Joanne Jimenez MA - 09/03/2024 1:05 PM EST ..chart Prep Labs: not done 05/25/24 Images: not applicable Vaccines due: Covid Due Referrals: Completed 09/16/24 urology 11/06/24 pulmonology 11/19/24 gastro Screenings: Colonoscopy Overdue care gaps: A1C, Glucose, SDOH, PHQ-9, and bolivar-7 documented in this encounter Plan of Treatment Not on file documented as of this encounter Visit Diagnoses Not on filedocumented in this encounter Care Teams Supplier Quality Specialist Relationship Specialty Start Date End Date Kera Maria MD [address] [place] [phone] PCP - General Family Medicine 07/22/18 documented as of this encounter
--- OUTSIDE RECORDS SUMMARY | 2024-09-08 11:28 | XMS_ITS | Encounter Summary ---
Author Organization [facility] Address [address] [facility] 7t [place] [address] Care Team Providers Care Heel Gouger Name Role Phone Kera Maria MD Primary Care Provider [phone] Reason for Referral * Imaging (Routine) - Closed Specialty Diagnoses / Procedures Referred By Contac t Referred To Contact Radiology Diagnoses Closed fracture of single pubic ramus of pelvis, right, initial encounter (CMS/HCC) Postmenopause Osteoporosis screening declined Procedures BD DEXA Axial Kera Maria MD [address] [place] [phone] Phone: tel: fax: [address] Phone: tel: fax: Referral ID Status Reason Start Date Expiration Date Visits Re quested Visits Authorized [id number] Closed 08/26/2023 08/25/2024 1 1 Encounter Details Date Type Department Care Team (Late st Contact Info) Description 08/26/2023 Orders Only [facility] MEDICINE [address] [place] [address] [phone] Kera Maria MD [address] [place], [place] [phone] Closed fracture of single pubic ramus of [...] pubic ramus of pelvis, right, initial encounter ([facility]) Postmenopause Osteoporosis screening declined documented in this encounter Results * BD DEXA Axial (09/13/2023 9:20 AM EST) Anatomical Region Laterality Modality Body Radiographic Collette ging 09/13/2023 9:20 AM EST Narrative 09/13/2023 5:44 PM EST ? [facility] ? [address] ?[place] [address] ? Mammography Report ? Signed ? Patient: David Momin,Sofía ?MR#: ?? [id number] ? : 1950 ?Acct:[id number] ? Age/Sex: 73 / F ?ADM Date: 09/13/23 ? Loc: HO.MAMMO ? Attending Dr: Kera Maria MD ? Ordering Physician: Kera Maria MD ?Results: ? Date of Service: 09/13/23 ?Follow Up: ? Procedure(s): XR DEXA axial skeleton ?? Accession Number(s): [id number] ? cc: Kera Maria MD ? EXAMINATION: ?? BONE DENSITOMETRY ? CLINICAL INDICATION: ?? Postmenopausal. ? COMPARISON: ?? This is the patient's baseline examination. ? TECHNIQUE: Using a [employer] Advance DXA System (software version: ?? 13.1) manufactured by [employer], dual-energy x-ray absorptiometry ?? was performed of [...] signed by Al Bland MD in OV> ?09/13/23 1740 ? DD/ 9 ? TD/TT: ? Change Management Lead: DOROTHEA ? Procedure Note Donotuseinterpreter, Image - 09/13/2023 Ingris [facility] [address] [place], [place] [address] Mammography Report Signed Patient: Kaylee Penny#: [id number] : 1950cct:[id number] Age/Sex: 73 / FADM Date: 09/13/23 Loc: HO.MAMMO Attending Dr: Kera Maria MD Ordering Physician: Kera Mariaults: Date of Service: 09/13/23Follow Up: Procedure(s): XR DEXA axial skeleton Accession Number(s): [id number] cc: Kera Maria MD EXAMINATION: BONE DENSITOMETRY CLINICAL INDICATION: Postmenopausal. COMPARISON: This is the patient's baseline examination. TECHNIQUE: Using a [employer] DXA System (software version: 13.1) manufactured by [employer], dual-energy x-ray absorptiometry was performed of the [...] by Al Bland MD in OV> 09/13/23 1740 DD/ 0920 TD/TT: Change Management Lead: SK Kera Maria MD IM DXA PROCEDURES Final Result documented in this encounter Visit Diagnoses Diagnosis Closed fracture of single pubic ramus of pelvis, right, initial encounter ([facility])- Primary Postmenopause Asymptomatic postmenopausal status (age-related) (natural) Osteoporosis screening declined documented in this encounter Care Teams Heel Gouger Relationship Specialty Start Date End Date Kera Maria MD [address] [place] [phone] PCP - General Family Medicine 07/22/18 documented as of this encounter
--- OUTSIDE RECORDS SUMMARY | 2024-09-08 11:29 | XMS_ITS | Encounter Summary ---
Author Organization [email or web address] Address [address] [facility] [address] [place] [address] Care Team Providers Care Paver Name Role Phone Kera Maria MD Primary Care Provider [phone] Reason for Visit * Reason Comments Med Refill Encounter Details Date Type Department Care Team ([facility] st Contact Info) Description 07/04/2023 Refill [facility] MED & PEDS [address] [place], [place] [phone] Kera Maria MD [address] [place], [place] [phone] Social History Tobacco Use Types Packs/Day Years [...] on filedocumented in this encounter Care Teams Paver Relationship Specialty Start Date End Date Kera Maria MD [address] [place] [address] PCP - General Family Medicine 07/22/18 documented as of this encounter
[2024-09-08 11:49] LABS: Estimated Average Glucose 295 mg/dL; Hemoglobin A1c % 11.9 % (<6.0); Total Hemoglobin (HGBA1C) 3194.6283 umol/L
[2024-09-08 12:00] LABS: Anion Gap 15 (12-20); Blood Urea Nitrogen 21 mg/dL (9-16); Carbon Dioxide 25 mmol/L (22-29); Chloride 99 mmol/L (96-108); Estimated Glomerular Filt Rate > 60; Sodium 135 mmol/L (135-145)
[2024-09-08 12:11] LABS: Creatinine Urine 11.09 mg/dL; Total Protein Urine Random < 7 mg/dL (<12)
== END 2024-09-08 10:28 | disposition home or self-care (01) ==
LOC: HO.HHCL 10:27
PROVIDERS: Visit Provider Internal Medicine Nephrology
DX: E11.29 Type 2 diabetes mellitus with other diabetic kidney complication (principal); R80.9 Proteinuria, unspecified; I10 Essential (primary) hypertension
CPT/HCPCS: 36415; 80051; 82565; 82570; 83036; 84156; 84520

== ENCOUNTER 2024-09-10 07:36 | Day surgery (SDC) | payer OTHER, SELFPAY ==
[2024-09-08 14:02] VITALS: BMI 28.5
[2024-09-10] MEDS: Lactated Ringers 1,000 ML 100 ML IVCONT (08:45)
[2024-09-10 09:02] VITALS: BMI 28.0
[2024-09-10 09:08] VITALS: BP 148/62; PULSE 80; RESP 16; TEMP 36.4; O2SAT 98
--- NOTE | 2024-09-10 09:13 | MHC.SHP ---
Pre-Procedural Eval Section A - 24 Hr Update-Section A only Date of Service: 09/10/24 Section B - Complete if H&P > 30 days Chief Complaint: Benign neoplasm of colon, unspecified Relevant Family History (Specify if Yes): No Relevant Social History: None Present Medications: see Short Stay Collaborative assessment Medical History: Significant History (Dyspnea Chronic restrictive lung disease DILSHAD (stress urinary incontinence, female) Recurrent UTI (urinary tract infection)) History of Previous Operations: Relevant previous surgery/procedure and date(s) (H/O esophagogastroduodenoscopy H/O colonoscopy History of bladder suspension procedure S/P CABG x 3 History of tubal ligation History of hysterectomy) Allergies: Allergies Allergy/AdvReac Type Severity Reaction Status Date / Time adhesive tape [ADHESIVE TAPE] Allergy Intermediate RASH-LOCALI Verified 09/10/24 08:59 ZED latex Allergy Rash Verified 09/10/24 08:59 Review of Systems Sugical H&P ROS: Negative: Constitution, Cardiovascular, Respiratory, Neurological, Psychiatric, Hem-Onc, Allergic/Immunologic, Gastrointestinal, Genitourinary, Musculoskeletal, Integumentary, Endocrine and Eyes/Ears/Nose/Throat Exam Surgical H&P Exam: Normal: HEENT, Normal: Heart, Normal: Lungs, Normal: Extremities, Normal: Abdomen, Normal: Skin and Normal: Neurological Plan Diagnosis/Plan: Unchanged I have reviewed the history and physical and performed a pertinent physical examination on my patient. No changes have occurred unless specified. Time Spent With Patient Time: Total time managing care of this patient today ____ minutes.
--- NOTE | 2024-09-10 09:20 | HO.ANESPROP2 ---
HPI - Anesthesia Eval Consult details Narrative: for colonoscopy [facility] Active Problems Active Problems: All Active Problems Proteinuria due to type 2 diabetes mellitus (Acute) Pre-op examination (Acute) Tendonitis of right hip flexor (Acute) Interstitial cystitis (Acute) Fracture of right inferior pubic ramus (Acute) Dyspnea (Acute) Migraine (Acute) Tubular adenoma of colon (Acute) Osteoarthritis of right knee (Acute) Osteoarthritis of right hand (Acute) Obstructive sleep apnea (Acute) Abdominal bloating (Acute) Chronic idiopathic constipation (Acute) Insomnia (Acute) Allergic rhinitis (Acute) Cystocele (Acute) Incontinence (Acute) CAD (coronary artery disease) (Acute) High cholesterol (Acute) HTN (hypertension), benign (Acute) NIDDY (non-insulin dependent diabetes mellitus in young) (Acute) Obesity (Acute) GERD (gastroesophageal reflux disease) (Acute) ALMENDAREZ (nonalcoholic steatohepatitis) (Acute) Chronic restrictive lung disease (Acute) Recurrent UTI (urinary tract infection) (Acute) Past Medical History Medical History (Updated 09/08/24 @ 14:12 by Maryse Belle RN) Diabetes Osteoarthritis Migraine Elevated cholesterol CAD (coronary artery disease) BART (obstructive sleep apnea) Chronic restrictive lung disease DILSHAD (stress urinary incontinence, female) Recurrent UTI (urinary tract infection) Narrative: Negative myocardial perf study 07/12. Family History Family History Father Alcohol abuse Cirrhosis Mother Cervical cancer Paternal Grandfather Stomach cancer Family history of problems with anesthesia: No Surgical History Surgical History H/O esophagogastroduodenoscopy H/O colonoscopy History of bladder suspension procedure S/P CABG x 3 History of tubal ligation History of hysterectomy History of Problems with Anesthesia: No Social History Social History Household Members: Children Alcohol intake: never Patient Tobacco Use Status: Never used Tobacco Use of substances other than those prescribed or required for medical reasons: No Are you DNR?: No Advance Directives: No Advance Directives Information Provided: Yes Advance Directives Date on File: 05/14/23 Current occupational status: retired Current occupation: lt handed Meds Allergies Allergy/AdvReac Type Severity Reaction Status Date / Time adhesive tape [ADHESIVE TAPE] Allergy Intermediate RASH-LOCALI Verified 09/10/24 08:59 ZED latex Allergy Rash Verified 09/10/24 08:59 Home Medications ?Medication ?Instructions ?Recorded ?Confirmed ?Last Taken ?Type amlodipine 10 mg tablet 10 mg PO QAM 07/13/20 09/10/24 Unknown History aspirin 81 mg tablet,delayed 81 mg PO QAM 07/13/20 09/10/24 Unknown History release blood sugar diagnostic #10 ea 07/13/20 06/05/23 Unknown History cholecalciferol (vitamin D3) 25 25 mcg PO QAM 07/13/20 09/10/24 Unknown History mcg (1,000 unit) tablet ezetimibe 10 mg tablet 10 mg PO BEDTIME 07/13/20 09/10/24 Unknown History lancets 33 gauge #100 ea 07/13/20 06/05/23 Unknown History losartan 50 mg tablet 50 mg PO DAILY 07/13/20 09/10/24 Unknown History rosuvastatin 40 mg tablet 40 mg PO DAILY 07/13/20 09/10/24 Unknown History trazodone 50 mg tablet 50 mg PO BEDTIME 07/13/20 09/10/24 Unknown History dulaglutide 0.75 mg/0.5 mL 0.75 mg subcut QWEEK 05/03/21 09/10/24 08/26/24 History subcutaneous pen injector (Trulicity) metformin 750 mg tablet,extended 750 mg PO BID 05/03/21 09/10/24 Unknown History release 24 hr levocetirizine 5 mg tablet 5 mg PO DAILY 01/21/23 09/10/24 Unknown History insulin glargine 100 unit/mL (3 16 unit subcut QPM 05/14/23 09/10/24 Unknown History mL) subcutaneous pen (Lantus Solostar U-100 Insulin) alcohol swabs (Alcohol Prep Pads) 1 pad topical TID 10/22/23 Unknown History furosemide 20 mg tablet 20 mg PO DAILY 04/29/24 09/10/24 Unknown History Exam Height,Weight and Vital Signs: Height 5 ft 4 in Weight 73.936 kg Last Vital Signs Temp 97.5 F 09/10/24 09:08 Pulse 80 09/10/24 09:08 Resp 16 09/10/24 09:08 BP 148/62 H 09/10/24 09:08 Pulse Ox 98 09/10/24 09:08 O2 Del Method Room Air 09/10/24 09:08 Airway Mallampati Class: II TM Dist: <=3cm Neck ROM: Full Denture: Upper and Lower Heart: ok Lungs: ok Assessment and Plan Assessment Anesthesia Assessment: Anesthesia Plan Discussed and Chart Reviewed Final Anesthetic Review Family History of Problems with Anesthesia: No History of Problems with Anesthesia: No NPO: Yes ASA Class: III Final Preanesthetic Review: No Changes in Pt Med Stat, Meds/Allgs Chart Reviewed, Consent Obtained/Reviewed and Anes Risks/Benef Reviewed Patient Risk: Intermediate Procedure Risk: Low Anesthetic Plan Anesthetic Plan: MAC: and Agree w/ Assess. and Plan Disposition: Standard PACU
[2024-09-10 09:28] LABS: Glucose, Whole Blood 231 mg/dL (60-115)
--- NOTE | 2024-09-10 10:18 | HO.OPN-COLON ---
Colonoscopy Operative Note Operative Note Date of Service: 09/10/24 Narrative: Operative Information Procedure Description: Colonoscopy Indication: screening Anesthesia: MAC COLONOSCOPY Instrument: Olympus variable stiffness pediatric scope 190L Colonoscopy Monitoring: Vital signs and clinical assessment, continuous EKG monitoring, Pulse oximetry, Carbon Dioxide monitoring and blood pressure monitoring were done throughout the procedure. Colon withdrawal time was 10 minutes. Procedure: The patient was placed in the left lateral decubitis position and pre-procedure medications were administered. After a digital rectal examination of the ano-rectum, the video colonoscope was inserted into the rectum and advanced through the colon to the cecum/TI. The colonoscope was slowly withdrawn in a retrograde panoramic fashion and the colon mucosa was carefully examined including a retroflexed view of the rectum. Findings and interventions are described below. Procedure Difficulty: moderate Findings: Terminal Ileum- superficially intuabted, nml Cecum:normal right sided retroflexion- nml Ascending Colon: normal Transverse Colon - 7-8 mm sessile polyp removed with cold snare Descending Colon:normal Sigmoid Colon: severe diverticulosis Rectum: Retroflexion with small internal hemorrhoids seen, grade I Anorectum - normal Intervention: cold snare Colon preparation: [place] Bowel Preparation Scale Right colon; 2 Transverse colon: 2 Left colon; 2 (0 = Unprepared colon segment with mucosa not seen due to solid stool that cannot be cleared. 1 = Portion of mucosa of the colon segment seen, but other areas of the colon segment not well seen due to staining, residual stool and/or opaque liquid. 2 = Minor amount of residual staining, small fragments of stool and/or opaque liquid, but mucosa of colon segment seen well. 3 = Entire mucosa of colon segment seen well with no residual staining, small fragments of stool or opaque liquid) Impression and Post Procedure Diagnosis: diverticulosis colon polyp x 1 internal hemorrhoids Plan: High fiber diet leaflet Avoid straining at stool, epsom salts and sitz bath, anusol supps or cream Repeat Colonoscopy in 5-7 years if adenomaotus, 10 yrs if hyperplastic and health allows or earlier if clinically indicated Above findings were reviewed with the patient and relevant handouts were provided if indicated.
[2024-09-10 10:25] VITALS: BP 91/52; PULSE 90; RESP 22; TEMP 36.4; O2SAT 99
[2024-09-10 10:40] VITALS: BP 126/68; PULSE 73; RESP 20; TEMP 36.9; O2SAT 96
== END 2024-09-10 10:59 | disposition home or self-care (01) ==
PROVIDERS: PCP Family Medicine; Visit Provider Internal Medicine Gastroenterology
PROC: 0DJD8ZZ Inspection of Lower Intestinal Tract, Via Natural or Artificial Opening Endoscopic (ICD-10-PCS; CPT 45378; principal; 2024-09-10 10:00)
DX: Z12.11 Encounter for screening for malignant neoplasm of colon (principal); D12.3 Benign neoplasm of transverse colon; K57.30 Diverticulosis of large intestine without perforation or abscess without bleeding; K64.0 First degree hemorrhoids; Z86.0100 Personal history of colon polyps, unspecified; E11.9 Type 2 diabetes mellitus without complications; I10 Essential (primary) hypertension; E78.00 Pure hypercholesterolemia, unspecified; K21.9 Gastro-esophageal reflux disease without esophagitis; K75.81 Nonalcoholic steatohepatitis (NASH); J98.4 Other disorders of lung; G47.33 Obstructive sleep apnea (adult) (pediatric); Z99.89 Dependence on other enabling machines and devices
CPT/HCPCS: 45385; 82947; 88305; J2003; J2704

== ENCOUNTER → 2024-09-10 07:36 | Outpatient (BNV) | payer OTHER, SELFPAY | PROVIDERS: PCP Family Medicine; Visit Provider Internal Medicine Gastroenterology | DX: Z12.11 Encounter for screening for malignant neoplasm of colon (principal); D12.3 Benign neoplasm of transverse colon; K57.30 Diverticulosis of large intestine without perforation or abscess without bleeding; K64.0 First degree hemorrhoids | CPT/HCPCS: 45385 ==

== ENCOUNTER 2024-09-16 09:05 | Outpatient (AMB) | payer OTHER, SELFPAY ==
--- NOTE | 2024-09-16 09:06 | A.OFFVIS_ITS ---
Intake Visit Reasons: 1yr PVR Intake Note: Patient is present for follow up recurrent uti Urology Medications: macrobid /elmiron Blood Thinner: aspirin PVR: 0ml's Industrial Garage Servicer Required: Yes Industrial Garage Servicer Services: Industrial Garage Servicer Present Industrial Garage Servicer Name: [facility] [employer] Accompanied by: Daughter Allergies adhesive tape [ADHESIVE TAPE] Allergy (Intermediate, Verified 09/16/24 09:41) RASH-LOCALIZED latex Allergy (Verified 09/16/24 09:41) Rash Medication List - Last Reconciled 09/16/24 by HARIS Carrion alcohol swabs (Alcohol Prep Pads) 1 pad topical TID amlodipine 10 mg PO QAM aspirin 81 mg PO QAM blood sugar diagnostic As directed dulaglutide (Trulicity) 0.75 mg subcut QWEEK ezetimibe 10 mg PO BEDTIME famotidine ([employer] (famotidine)) 10 mg PO BID fluticasone propionate 50 mcg/actuation 2 sprays intranasal DAILY 30 days furosemide 20 mg PO DAILY insulin glargine (Lantus Solostar U-100 Insulin) 16 units subcut QPM insulin glargine (Lantus U-100 Insulin) 10 units subcut QPM lancets As directed loratadine (Claritin) 10 mg PO DAILY 30 days losartan 50 mg PO DAILY magnesium oxide 400 mg PO BEDTIME 30 days metformin ER 750 mg PO BID montelukast 10 mg PO BEDTIME 30 days rosuvastatin 40 mg PO DAILY simethicone (Gas Relief (simethicone)) 180 mg PO QID solifenacin (Vesicare) 5 mg PO DAILY 30 days trazodone 50 mg PO BEDTIME HPI Comments Details: Sofía is a pleasant 74 year old Burundian speaking patient of Dr. Maria. She has a PMH of diabetes, osteoarthritis, migraines, hypercholesteremia, coronary artery disease, obstructive sleep apnea, chronic restrictive lung disease, stress urinary incontinence, and recurrent urinary tract infections. She presents to the office today for follow-up of her lower urinary tract symptoms, recurrent urinary tract infections, and interstitial cystitis. In discussion with the patient today she reports having had no UTI like symptoms since her last office visit here approximately 1 year ago. However, in review of patient's chart it appears urine culture 03/14 Klebsiella pneumoniae and urine culture 06/14 group B. She does however report noting increased episodes of mixed urinary incontinence. She reports compliance with Elmiron and low-dose Macrobid. We discussed side effects of Elmiron and attempt to trial different medication as patient with a longstanding history of interstitial cystitis. Previous workup has included a retroperitoneal ultrasound 11/11 noting bilateral kidneys with no calculi, lesions, and or hydronephrosis she noted. The bladder is well distended and normal. Bilateral ureteral jets are demonstrated. Pre void bladder volume is approximately 450 mL. Postvoid bladder volume is approximately 125 mL. In office urinalysis results reviewed with the patient today. PVR 0 mls. Discussed at length importance of managing diabetes for improvement in urinary symptoms as well as overall health and well-being. She denies dysuria, hematuria, changes to urinary stream, fever, and or chills. She discusses recently following up with her PCP and starting new medications for her diabetes as she has been having elevated blood sugars. She otherwise denies any issues or concerns at this time. [facility] Medical History Diabetes Osteoarthritis Migraine Elevated cholesterol CAD (coronary artery disease) BART (obstructive sleep apnea) Chronic restrictive lung disease DILSHAD (stress urinary incontinence, female) Recurrent UTI (urinary tract infection) Surgical History H/O esophagogastroduodenoscopy H/O colonoscopy History of bladder suspension procedure S/P CABG x 3 History of tubal ligation History of hysterectomy Family History Father Alcohol abuse Cirrhosis Mother Cervical cancer Paternal Grandfather Stomach cancer Social History Household Members: Children Alcohol intake: never Patient Tobacco Use Status: Never used Tobacco Advance Directives Date on File: 05/14/23 Current occupational status: retired Current occupation: lt handed Review of Systems Const Reports as per HPI Eyes Reports no additional complaints ENT Reports no additional complaints Card Reports as per HPI Resp Reports as per HPI GI Reports no additional complaints Reports as per HPI Musc Reports as per HPI Neuro Reports no additional complaints Psych Reports no additional complaints Endo Reports as per HPI Physical Exam Const General: cooperative, comfortable, no acute distress, well developed, alert and awake Orientation/consciousness: patient oriented x3 Limitations: no limitations HEENT Head: Yes normal to inspection, Yes normocephalic and Yes atraumatic Ears: hearing grossly normal bilaterally Eyes General: appearance normal, both eyes and all related structures Neck Neck: Yes normal visual inspection and Yes trachea midline Chest Chest palpation & inspection: normal inspection of the chest Resp Effort & Inspection: normal respiratory effort and able to speak in complete sentences Cardio Rate: regular rate GI Inspection: Yes normal to inspection General: Yes no CVA tenderness Back/Spine/Pelvis Back: no CVA tenderness Skin General skin exam: no rashes or lesions noted Neuro General: patient oriented x3 Extrem General: Yes normal to inspection Psych Appearance: grossly normal and well kempt Mental Status: mental status grossly normal Speech and movement: Normal speech and movement present and Clear speech present Affect: normal affect Attitude: cooperative Thought process: Normal thought process present Thought content: Normal thought content present Insight: Fair insight present (Psych) Judgement: Fair judgement present (Psych) Results AMB Urinalysis, Automated UA Leukoctes 0 Raf/uL Last Edit by Tracey Bradford on 09/16/24 09:27 UA Nitrite Negative Last Edit by Tracey Bradford on 09/16/24 09:27 UA Urobilinogen 0.2 mg/dL Last Edit by Tracey Bradford on 09/16/24 09:27 UA Protein 30 mg/dL Last Edit by Tracey Bradford on 09/16/24 09:27 UA pH 6.0 Last Edit by Tracey Bradford on 09/16/24 09:27 UA Blood 0 Cortez/uL Last Edit by Tracey Bradford on 09/16/24 09:27 UA Specific Adams 1.025 Last Edit by Tracey Bradford on 09/16/24 09:27 UA Ketone Negative Last Edit by Tracey Bradford on 09/16/24 09:27 UA Bilirubin 0 mg/dL Last Edit by Tracey Bradford on 09/16/24 09:27 UA Glucose 1000 mg/dL Last Edit by Tracey Bradford on 09/16/24 09:27 Results Reviewed Results Reviewed: Laboratory Last Values Urine pH (Auto) 6.0 09/16/24 09:17 Specific Adams (Auto) 1.025 09/16/24 09:17 Urine Protein (Auto) 30 mg/dL 09/16/24 09:17 Glucose (UA)(Auto) 1000 mg/dL 09/16/24 09:17 Urine Ketones (Auto) Negative 09/16/24 09:17 Urine Blood (Auto) 0 Cortez/uL 09/16/24 09:17 Urine Nitrite (Auto) Negative 09/16/24 09:17 Urine Bilirubin (Auto) 0 mg/dL 09/16/24 09:17 Urine Urobilinogen (Auto) 0.2 mg/dL 09/16/24 09:17 Leukocyte Esterase (Auto) 0 Raf/uL 09/16/24 09:17 Assessment & Plan Assessment & Plan (1) Incontinence: Code(s): R32 - Unspecified urinary incontinence Category: Medical (2) Interstitial cystitis: Code(s): N30.10 - Interstitial cystitis (chronic) without hematuria Category: Medical (3) Recurrent UTI (urinary tract infection): Code(s): N39.0 - Urinary tract infection, site not specified Category: Medical Plan In office urinalysis results reviewed with the patient today; as noted above. PVR 0 mL. Stop Elmiron Continue low-dose Macrobid Start VESIcare as discussed and prescribed. Will obtain retroperitoneal ultrasound for further assessment evaluation. We discussed at length the importance of managing diabetes for improvement in lower urinary tract symptoms as well as overall health and well-being. We discussed bladder triggers/irritants. Discussed, educated, and stressed the importance of adequate hydration relation to lower urinary tract symptoms as well as overall health and well-being. Follow-up in 1-3 months with imaging and PVR; or sooner with any issues, concerns, and or questions. Orders: Orders AMB Urinalysis Automated Today Z13.9 - Encounter for screening, unspecified AMB Post Void Residual by ultrasound Today R32 - Unspecified urinary incontinence US retroperitoneal comp Today R32 - Unspecified urinary incontinence Medications: New solifenacin (Vesicare) 5 mg PO DAILY 30 days 30 tabs 3RF nitrofurantoin macrocrystal must administer with a meal/food 50 mg PO BEDTIME 90 days 90 caps 1RF N39.0 - Urinary tract infection, site not specified solifenacin (Vesicare) 5 mg PO DAILY 30 days 30 tabs 3RF Patient Instructions: The patient had an opportunity to ask questions regarding the treatment plan. All questions were answered. Physical exam, labs, and imaging were discussed and reviewed in detail. As well as risks, benefits, and discussion of treatment choices. No major barriers to understanding were identified. The patient expressed understanding and agreement with the above treatment plan. The patient was made aware they should contact our office by phone for worsening of their current condition, the appearance of new symptoms, or with any questions or concerns. Compliance is encouraged with any medications and follow up testing that is ordered. It is a privilege to be allowed the opportunity to participate in? your urological care.? Again, if you have any questions or concerns If you have any questions or concerns please do not hesitate to contact me. The office is [phone]. This note is constructed using voice recognition software. While every effort has been made to ensure accuracy gas blender errors may have been included. Yours sincerely, HARIS Carrion Coding Level of Care Code Est Pt Level 4 (10965) Complex EM visit Add On G2211 Diagnoses Incontinence R32 Interstitial cystitis N30.10 Recurrent UTI (urinary tract infection) N39.0
--- OUTSIDE RECORDS SUMMARY | 2024-09-16 09:57 | XMS_ITS | Encounter Summary ---
Author Organization [facility] Address [address] [facility] [address] [place] [address] Care Team Providers Care Paediatric Thoracic Physician Name Role Phone Kera Maria MD Primary Care Provider Encounter Details Date Type Department Care Team (Late st Contact Info) Description 08/09/2022 Abstract [facility] MEDICINE [address] [place], [place] [phone] Kera Maria MD [address] [place], [place] [phone] Social History Tobacco Use Types Packs/Day Years [...] on filedocumented in this encounter Care Teams Paediatric Thoracic Physician Relationship Specialty Start Date End Date Kera Maria MD [address] [place] [phone] PCP - General Family Medicine 07/22/18 documented as of this encounter
--- OUTSIDE RECORDS SUMMARY | 2024-09-16 09:57 | XMS_ITS | Encounter Summary ---
Author Organization [facility] Address [address] [facility] 7t [place] [address] Care Team Providers Care Loan Auditor Name Role Phone Kera Maria MD Primary Care Provider [phone] Encounter Details Date Type Department Care Team (Late st Contact Info) Description 01/11/2023 Orders Only [facility] [address] [place] [address] [phone] Juhi Onofre LPN Social History Tobacco Use [...] on filedocumented in this encounter Care Teams Loan Auditor Relationship Specialty Start Date End Date Kera Maria MD [address] [place], [place] [phone] PCP - General Family Medicine 07/22/18 documented as of this encounter
--- OUTSIDE RECORDS SUMMARY | 2024-09-16 09:57 | XMS_ITS | Encounter Summary ---
Author Organization [facility] Address [address] [facility] 7t [place] [address] Care Team Providers Care Medical Coding Manager Name Role Phone Kera Maria MD Primary Care Provider [phone] Encounter Details Date Type Department Care Team (Late st Contact Info) Description 10/15/2022 Orders Only [facility] [address] [place] [address] [phone] Juhi Onofre LPN Social History Tobacco Use [...] on filedocumented in this encounter Care Teams Medical Coding Manager Relationship Specialty Start Date End Date Kera Maria MD [address] [place], [place] [phone] PCP - General Family Medicine 07/22/18 documented as of this encounter
--- OUTSIDE RECORDS SUMMARY | 2024-09-16 09:57 | XMS_ITS | Encounter Summary ---
Author Organization [facility] Address [address] [facility] 7t [place] [address] Care Team Providers Care Integration Aide Name Role Phone Kera Maria MD Primary Care Provider [phone] Encounter Details Date Type Department Care Team (Late st Contact Info) Description 08/09/2022 Abstract [facility] [address] [place], [place] [phone] Kera Maria MD [address] [place], [place] [phone] Social History Tobacco Use Types Packs/Day Years [...] on filedocumented in this encounter Care Teams Integration Aide Relationship Specialty Start Date End Date Kera Maria MD [address] [place], [place] [phone] PCP - General Family Medicine 07/22/18 documented as of this encounter
--- OUTSIDE RECORDS SUMMARY | 2024-09-16 09:57 | XMS_ITS | Encounter Summary ---
Author Organization [employer] Address [address] [facility] [facility] [address] 7[address] [place] [address] Care Team Providers Care Integrity Specialist Name Role Phone Kera Maria MD Primary Care Provider [phone] Encounter Details Date Type Department Care Team (Late st Contact Info) Description 09/14/2024 Orders Only [facility] [address] [place], [place] [phone] Provider, MD Chey Social History Tobacco Use Types Packs/Day Years [...] Procedure Name Priority Date/Time Associated Diagnosis Comments HM COLONOSCOPY Routine 09/10/2024 1:05 PM EST documented in this encounter Results * Hm Colonoscopy (09/10/2024 1:05 PM EST) Historical Provider HEALTH MAINTENANCE Final Result documented in this encounter Visit Diagnoses Not on filedocumented in this encounter Care Teams Integrity Specialist Relationship Specialty Start Date End Date Kera Maria MD [address] [place] [phone] PCP - General Family Medicine 07/22/18 documented as of this encounter
--- OUTSIDE RECORDS SUMMARY | 2024-09-16 09:57 | XMS_ITS | Encounter Summary ---
Author Organization [employer] Address [address] [facility] 7t [place] [address] Care Team Providers Care Conduit Bender Name Role Phone Kera Maria MD Primary Care Provider [phone] Encounter Details Date Type Department Care Team (Late st Contact Info) Description 10/15/2022 Orders Only [facility] [address] [place], [place] [phone] Elena Unger LPN Social History Tobacco Use [...] on filedocumented in this encounter Care Teams Conduit Bender Relationship Specialty Start Date End Date Kera Maria MD [address] [place] [phone] PCP - General Family Medicine 07/22/18 documented as of this encounter
--- OUTSIDE RECORDS SUMMARY | 2024-09-16 09:58 | XMS_ITS | Encounter Summary ---
Author Organization [employer] Address [address] [facility] 7t [place] [address] Care Team Providers Care Venetian Blind Cleaner Name Role Phone Kera Maria MD Primary Care Provider [phone] Encounter Details Date Type Department Care Team (Late st Contact Info) Description 05/01/2023 Orders Only [facility] [address] [place], [place] [phone] Teresa Sotomayor MD [address] [place] [address] Social History Tobacco Use Types Packs/Day Years [...] EDT Narrative 05/13/2023 7:18 PM EDT ? [facility] ?[address] ?[place] [address] ? CT Scan Report ? Signed ? Patient: Sofía Penny ?MR#: ?? [id number] ? : 1950 ?Acct:[id number] ? Age/Sex: 72 / F ?ADM Date: 05/13/23 ? Loc: HO.ED ? Attending Dr: ? Ordering Physician: Tammi Andrew ?? Date of Service: 05/13/23 ?? Procedure(s): CT cervical spine wo IV con ?? Accession Number(s): [id number] ? cc: Tammi Andrew; Kera Maria MD [...] 05/13/23 1915 ? DD/ ? TD/TT: ? Supervisor Mechanic Boilermaking: ELMO ? Procedure Note Donotuseinterpreter, Image - 05/13/[address] [place] [address] [address] Scan Report Signed Patient: Kaylee Penny#: [id number] : 1950cct:[id number] Age/Sex: 72 / FADM Date: 05/13/23 Loc: HO.ED Attending Dr: Ordering Physician: Tammi Andrew Date of Service: 05/13/23 Procedure(s): CT cervical spine wo IV con Accession Number(s): [id number] cc: Tammi Andrew; Kera Maria MD EXAMINATION: [...] MD in OV> 05/13/231914 DD/ 06 TD/TT: Supervisor Mechanic Boilermaking: MICHELETJ us [facility] External Provider IMG MRI PROCEDURES Edited Result - Final * MR Pelvis w/o Contrast (05/13/2023 6:07 PM EDT) Anatomical Region Laterality Modality Body, Pelvis Magnetic Resonan ce 05/13/2023 6:07 PM EDT Narrative 05/13/2023 7:01 PM EDT ? [facility] ?[address] ?[place], [place] [address] ? CT Scan Report ? Signed ? Patient: Sofía Penny ?MR#: ?? [id number] ? : 1950 ?Acct:[id number] ? Age/Sex: 72 / F ?ADM Date: 05/13/23 ? Loc: HO.ED ? Attending Dr: ? Ordering Physician: Tammi Andrew ?? Date of Service: 05/13/23 ?? Procedure(s): CT pelvis wo IV con ?? Accession Number(s): [id number] ? cc: Tammi Andrew; Kera Maria MD [...] 1858 ? DD/ 1807 ? TD/TT: ? Supervisor Mechanic Boilermaking: SS ? Procedure Note River, Image - 05/13/[address] [place] [address] [address] Scan Report Signed Patient: Kaylee Penny#: [id number] : 1950cct:[id number] Age/Sex: 72 / FADM Date: 05/13/23 Loc: HO.ED Attending Dr: Ordering Physician: Tammi Andrew Date of Service: 05/13/23 Procedure(s): CT pelvis wo IV con Accession Number(s): [id number] cc: Tammi Andrew; Kera Maria MD EXAMINATION: [...] in OV> 05/13/23 1858 DD/ 1807 TD/TT: Supervisor Mechanic Boilermaking: PRIYA [facility] External Provider IMG MRI PROCEDURES Edited Result - Final * CT Head w/o Contrast (05/13/2023 6:07 PM EDT) Anatomical Region Laterality Modality Head, Neck Computed Tomogra phy 05/13/2023 6:07 PM EDT Narrative 05/13/2023 6:59 PM EDT ? [facility] ?[address] ?[place] [address] ? CT Scan Report ? Signed ? Patient: Sofía Penny ?MR#: ?? [id number] ? : 1950 ?Acct:[id number] ? Age/Sex: 72 / F ?ADM Date: 10/23/23 ? Loc: HO.ED ? Attending Dr: ? Ordering Physician: Tammi Andrew ?? Date of Service: 05/13/23 ?? Procedure(s): CT head/brain wo IV con ?? Accession Number(s): [id number] ? cc: Tammi Andrew; Kera Maria MD [...] 1856 ? DD/ 1807 ? TD/TT: ? Supervisor Mechanic Boilermaking: SUJ ? Procedure Note River, Image - 05/13/[address] [place] [address] [address] Scan Report Signed Patient: Kaylee Penny#: [id number] : 1950cct:[id number] Age/Sex: 72 / FADM Date: 05/13/23 Loc: HO.ED Attending Dr: Ordering Physician: Tammi Andrew Date of Service: 05/13/23 Procedure(s): CT head/brain wo IV con Accession Number(s): [id number] cc: Tammi Andrew; Kera Maria MD EXAMINATION: [...] in OV> 05/13/23 1856 DD/ 1807 TD/TT: Supervisor Mechanic Boilermaking: ELMO [facility] External Provider IMG CT PROCEDURES Edited Result - Final * XR Hip right with Pelvis 1 view (05/13/2023 3:58 PM EDT) Anatomical Region Laterality Modality Lower Extremities, Hip Bilateral Radiograp hic Imaging 05/13/2023 3:58 PM EDT Narrative 05/13/2023 5:03 PM EDT ? [facility] ?[address] ?[place] [address] ?XRay Report ? Signed ? Patient: David Momin,Sofía ?MR#: ?? [id number] ? : 1950 ?Acct:[id number] ? Age/Sex: 72 / F ?ADM Date: 10/23/23 ? Loc: HO.ED ? Attending Dr: ? Ordering Physician: Tammi Andrew ?? Date of Service: 05/13/23 ?? Procedure(s): XR hip RT w PEL1V ?? Accession Number(s): [id number] ? cc: Tammi Andrew; Kera Maria MD [...] Oscar Oseguera MD in OV> ? 05/13/23 8219 ? DD/ 1558 ? TD/TT: ? Supervisor Mechanic Boilermaking: PD ? Procedure Note Nayely Holman - 05/13/[address] [address] XRay Report Signed Patient: Kaylee Penny#: [id number] : 1950cct:[id number] Age/Sex: 72 / FADM Date: 05/13/23 Loc: HO.ED Attending Dr: Ordering Physician: Tammi Andrew Date of Service: 05/13/23 Procedure(s): XR hip RT w PEL1V Accession Number(s): [id number] cc: Tammi Andrew; Kera Maria MD EXAMINATION: [...] in OV> 05/13/23 1659 DD/ 1558 TD/TT: Supervisor Mechanic Boilermaking: [facility] External Provider IMG XR PROCEDURES Final Result documented in this encounter Visit Diagnoses Not on filedocumented in this encounter Care Teams Venetian Blind Cleaner Relationship Specialty Start Date End Date Kera Maria MD [address] [place] [address] PCP - General Family Medicine 07/22/18 documented as of this encounter
--- OUTSIDE RECORDS SUMMARY | 2024-09-16 09:58 | XMS_ITS | Encounter Summary ---
Author Organization [employer] Address [address] [facility] [address] 7t [place] [address] Care Team Providers Care Director Of Channel Marketing Name Role Phone Kera Maria MD Primary Care Provider Encounter Details Date Type Department Care Team (Late st Contact Info) Description 09/10/2024 Orders Only GENERIC EXTERNAL DATA DEPARTMENT Provider, Generic External Data Social History Tobacco Use Types Packs/Day Years [...] Procedure Name Priority Date/Time Associated Diagnosis Comments HEMATOXYLIN AND EOSIN STAIN Routine 09/10/2024 10:14 AM EST GLUCOSE, WHOLE BLOOD Routine 09/10/2024 9:20 AM EST documented in this encounter Results * Hematoxylin and Eosin Stain (09/10/2024 10:14 AM EST) 09/10/2024 10:1 4 AM EST 09/10/2024 10:42 AM EST Pedro [facility] - 09/14/2024 9:11 AM EST ----- ------- Name: Sofía Penny ? Age/Sex: 74/F ? : 1950 Unit#: [id number] ?? Attend Dr: Mayra Montoya MD ?Re09/10/24 ?Status: DEP SDC ? Location: HO.SSS ?Disch: ? ----- ------- SPEC : [id number] ?RECD: 09/10/24 ? STATUS: ??SOUT ? REQ NUM: [id number] ? LEENA: 09/10/24-1014 ? SUBM DR: Mayra Montoya MD ? ENTERED: ??09/10/24 ?SP TYPE: Surgical ? OTHR DR: Kera Maria MD ? ORDERED: ??HE Stain/3, Gross Micro L4 ? Diagnosis ?? Colon, transverse, polypectomy: ??Fragments of tubular adenoma; negative for high-grade ?? dysplasia or carcinoma. ?Clinical History Pre-Op Dx: ??History of polyps Post-Op Dx: Colon polyp, diverticulosis, hemorrhoids ?Microscopic Description Microscopic sections reviewed. ? Material Received ?? Transverse colon polyp ? Gross Description Received in formalin labeled ?transverse colon polyp? is a 0.45 cm crenshaw-pink papular tissue fragment, submitted in toto in a cassette labeled A. CEDS Copies To: ?? Mayra Montoya MD ?? [facility] ?? [address] ?? [place] [address] ?? [phone] ?? Kera Maria MD ?? [facility] ?? [address] ?? [place] [address] ?? [phone] ----- ------- Signed (signature on file) Jorge Cooper MD 09/14/24 0911 ? ----- ------- ? END OF REPORT ? us Generic External Data Provider LAB BLOOD ORDERAB LES Final Result Performing Organization Address [facility]/ZIP Co de Phone Number [facility] [address] [place] [address] [phone] * (ABNORMAL) Glucose, Whole Blood (09/10/2024 9:20 AM EST) Glucose, Whole Blood 231(H) 60 - 115 mg/dL [facility] Comment:METER #: [id number] 09/10/2024 9:20 AM EST 09/10/2024 9:28 AM EST Generic External Data Provider LAB BLOOD ORDERAB LES Final Result Performing Organization Address [facility]/ZIP Co de Phone Number [facility] [address] [place] [address] [phone] documented in this encounter Visit Diagnoses Not on filedocumented in this encounter Care Teams Director Of Channel Marketing Relationship Specialty Start Date End Date Kera Maria MD [address] [place] [address] PCP - General Family Medicine 07/22/18 documented as of this encounter
--- OUTSIDE RECORDS SUMMARY | 2024-09-16 09:58 | XMS_ITS | Encounter Summary ---
Author Organization [facility] Address [address] [facility] [address] [place] [address] Care Team Providers Care Radiology Services Manager Name Role Phone Kera Maria MD Primary Care Provider Reason for Referral * Medications - Closed Specialty Diagnoses / Procedures Referred By Elroy jackson Referred To Contact Diagnoses Type 2 diabetes mellitus with hyperglycemia, with long-term current use of insulin ([facility]/HCC) Kera Maria MD [address] [place] [phone] Phone: tel: fax: Referral ID Status Reason Start Date Expiration Date Visits Re quested Visits Authorized [id number] Closed 1 1 * Medications - Closed Specialty Diagnoses / Procedures Referred By Elroy jackson Referred To Contact Diagnoses Type 2 diabetes mellitus with hyperglycemia, with long-term current use of insulin ([facility]/HCC) Kera Maria MD [address] [place] [id number] Phone: tel: fax: Referral ID Status Reason Start Date Expiration Date Visits Re quested Visits Authorized [id number] Closed 1 1 Encounter Details Date Type Department Care Team (Late st Contact Info) Description 09/08/2024 10:30 AM EST Office Visit [facility] [address] [place] [id number] Kera Maria MD [address] [place] [address] [phone] BART (obstructive sleep apnea) (Primary Dx); S/P CABG x 3; Peripheral venous insufficiency; Ischemic heart disease; Essential hypertension; Metabolic dysfunction-associate d steatotic liver disease (MASLD); Mixed stress and urge urinary incontinence; Type 2 diabetes mellitus with hyperglycemia, with long-term current use of insulin (CMS/HCC); Dyslipidemia; Osteopenia of lumbar spine; History of fracture of pelvis; Dietary counseling; Exercise counseling; Overweight; Tubular adenoma of colon; Recurrent urinary tract infection Social History Tobacco Use Types Packs/Day Years [...] 10:08 AM EST documented in this encounter Progress Notes * Kera Maria MD - 09/08/2024 10:30 AM EST Subjective Sofía Momin is a 74 y.o. female who has diabetes mellitus type 2, hypertension, dyslipidemia, CAD, and BART, and patient presents for follow up of chronic conditions. Background: Our last encounter was 05/25/2024. A1C 9%. Increased dulaglutide. She stated that she stopped using insulin because her blood sugar level was fine with GLP1RA only. Interval history: Seen by pad assembler on 05/26/24. Recommended pneumatic pump device for LE edema. Seen by any commodity buyer, Dr. Staples, on 09/02/24. Planning to decrease amlodipine maximize ARB, and start SGLT2i. Today: Pt reports she has not been using Lantus for some time but is comfortable with restarting it. Pt notes when she checks her blood sugar in the morning before eating it's usually 145, even though her Sugar Readings have been 300 and over. Pt is willing to try a CGM. Pt notes she doesn't take her BP at home but she usually does take her BP medications as prescribed. Pt agreed to get her blood work done today. Pt will have colonoscopy on 2024. Pt reports she has not heard from Lev the pharmacist but will be waiting for his call. Review of Systems Constitutional: Negative for activity change, appetite change and fever. Respiratory: Negative for shortness of breath. Cardiovascular: Negative for chest pain. Objective Vitals: 09/08/24 0957 BP: (!) 141/73 Pulse: 82 Resp: 17 Temp: 96.8 ??F (36 ??C) TempSrc: Temporal Weight: 163 lb (73.9 kg) Physical Exam Constitutional: General: She is not in acute distress. Appearance: Normal appearance. She is not ill-appearing. HENT: Head: Normocephalic and atraumatic. Mouth/Throat: Mouth: Mucous membranes are moist. Eyes: Extraocular Movements: Extraocular movements intact. Pupils: Pupils are equal, round, and reactive to light. Cardiovascular: Rate and Rhythm: Normal rate and regular rhythm. Heart sounds: No murmur heard. Pulmonary: Effort: Pulmonary effort is normal. No respiratory distress. Breath sounds: Normal breath sounds. No wheezing or rhonchi. Skin: General: Skin is warm. Neurological: Mental Status: She is alert. Mental status is at baseline. Psychiatric: Mood and Affect: Mood normal. Results: Lab Results Component Value Date NA 139 05/23/2024 K 4.0 05/23/2024 CL 104 05/23/2024 CO2 25 05/23/2024 BUN 12 05/23/2024 BUN 12 05/23/2024 CREATININE 0.74 05/23/2024 CRCLCALCPH 71.1 05/13/2023 EGFR >60 05/23/2024 GLUCOSE 231 (H) 09/10/2024 TOTALBILIRUB 0.3 06/20/2023 AST 26 06/20/2023 ALT 27 06/20/2023 TOTPROTEIN 8.3 (H) 06/20/2023 ALB 4.5 06/20/2023 ALP 90 06/20/2023 Lab Results Component Value Date TRIG 190 (H) 06/20/2023 CHOL 120 06/20/2023 LDLCHOLCAL 33 06/20/2023 HDL 49 06/20/2023 Lab Results Component Value Date HGBA1C 12.3 (A) 09/08/2024 MICROALBUR 170.0 06/20/2023 CREATUR 187.00 06/20/2023 MICROALBCREU 90.9 (H) 06/20/2023 Lab Results Component Value Date WBC 8.5 05/13/2023 HGB 11.5 (L) 05/13/2023 HCT 35.4 (L) 05/13/2023 PLT 221 05/13/2023 MCV 85.7 05/13/2023 Assessment/Plan Problem List Items Addressed This Visit Type 2 diabetes mellitus ([facility]) - A1C 12.3% on 09/08/24, worsened from 9.0% on 05/25/24, worsened from 7% in May 2023 -Continue working on lifestyle modifications -Currently on metformin ER 750 mg bid, consider maximizing -Continue Trulicity 1.5 mg weekly, titrate up as tolerated -SGLT-2 inhibitor has a great CV benefit for her, but she has urinary problem, so we will not try at this time unless there will be a new SGLT-2 inhibitor without side effect -Restart basal insulin 14 units at bedtime. Titrate up as tolerate. Treatment Hx: Glipizide was discontinued due to increased risk of hypoglycemia. Patient self-discontinued Lantus when she started using GLP1RA. Metformin dose was adjusted due to GI symptoms. Last eye exam: 01/05/23, no diabetic retionpathy, s/p cataract surgery Last foot exam: 04/04/22, Plantar warts b/l Last microalbumin test: 06/20/23 UACR 90 Last lipid profile: 06/20/23 Last dental exam: Immunizations: Due for COVID, but patient declines. Aspirin use: Prescribed. Relevant Medications Continuous Glucose Handstitching Machine Armhole Feller (FreeStyle La 2 [place]) device Continuous Glucose Sensor (FreeStyle La 2 Sensor) misc Other Relevant Orders POCT glucose manually resulted (Completed) POCT glycosylated hemoglobin (Hgb A1c) (Completed) Dyslipidemia -Last lipid profile: 06/20/23 -Medication: Crestor [...] current regimen to minimize her ASCVD risk. Ischemic heart disease - CABG in 2005 - Following with [facility], last note from Aug 2022 - Stress test and myocardial perfusion imaging in Jun 2022, no ischemia - continue secondary preventative measures. Mixed stress and urge urinary incontinence -following with urology Recurrent urinary tract infection - following with [facility], last seen in May 2023 - last UTI in Feb 2024, breakthrough (on nitrofurantoin prophylaxis). - urine culture in Feb 2024 grew Klebsiella. Treated with TMP/SMX. - relative contraindication to SGLT2i S/P CABG x 3 Overweight Tubular adenoma of colon - Colonoscopy in 2012 showed tubular adenoma - Colonoscopy in Mar 2018 showed no tubular adenoma; recommended to repeat in 5-7 years - Colonoscopy is scheduled for Sep 10, 2024 Essential hypertension -Goal BP < 140/90 per JNC-8 and < 130/80 per ACC/AHA guideline -Co-managed with pad assembler and any commodity buyer -Slightly elevated BP, possibly due to her pain and current condition -Continue working on lifestyle modifications -Recommended self-monitoring BP. -Continue working on lifestyle modifications. -Continue current medications: amlodipine 10 mg daily; losartan 50 mg daily -Treatment Hx: metoprolol - discontinued due to dizziness Peripheral venous insufficiency BART (obstructive sleep apnea) - Primary -Sleep study on 10/28/18 confirmed BART -Followed by sleep clinic since 05/2019, last seen on 10/17/21, BiPAP setting was adjusted -Continue BiPAP IPAP 9 cmH2O and EPAP 5 cmH2O -?Tx for PLMS Metabolic dysfunction-associated steatotic liver disease (MASLD) - following with [facility] - last US in November 2021 Osteopenia - last DEXA in Aug 2023. The lowest T-score -2.2 in lumbar spine; -1.9 in femoral neck - continue alendronate, started in 2023 History of fracture of pelvis Other Visit Diagnoses Dietary counseling Exercise counseling Allergies Allergen Reactions Latex Current Outpatient Medications Medication Instructions Alcohol Swabs (Alcohol Prep) 70 % pads USE DIRECTED WITH INSULIN alendronate (FOSAMAX) 70 mg, Oral, Every 7 days, Take in the morning with a full glass of water, tj empty stomach, and do not take anything else by mouth or lie down for the next 30 min. amLODIPine (NORVASC) 10 mg, Oral, Every morning Aspirin Adult Low Strength 81 mg, Oral, Every morning Bisacodyl EC 5 MG EC tablet TAKE 2 TABLETS BY MOUTH AT BEDTIME FOR 2 DAYS celecoxib (CeleBREX) 200 MG capsule TAKE 1 CAPSULE BY MOUTH EVERY TWELVE HOURS NEEDED FOR PAIN WITH FOOD cholecalciferol (Vitamin D-3) 25 MCG tablet TAKE 1 TABLET BY MOUTH EVERY MORNING cholecalciferol 25 MCG tablet TAKE 1 TABLET BY MOUTH EVERY MORNING Continuous Glucose Handstitching Machine Armhole Feller (GeoramaStyle La 2 [place]) device Scan sensor every 8 hours Continuous Glucose Sensor (FreeStyle La 2 Sensor) mis Apply 1 sensor every 14 days Elmiron 100 MG capsule No dose, route, or frequency recorded. ezetimibe (ZETIA) 10 mg, Oral, Nightly Famotidine Orig St 10 MG tablet No dose, route, or frequency recorded. furosemide (LASIX) 20 mg, Oral, Daily Noy-Tussin DM 10-100 MG/5ML liquid TAKE 5ml BY MOUTH EVERY 4 HOURS NEEDED FOR COUGH FOR UP TO 10 DAYS glucose blood (FreeStyle Precision Adeel Test) test strip Use to test blood sugar 3 times daily glucose blood (OneTouch Ultra) test strip TEST BLOOD SUGAR 3 TIMES A DAY Lancets (ChartWise Medical SystemsTouch Delica Plus Ukaitm60H) mis TEST BLOOD SUGAR 3 TIMES A DAY Lantus SoloStar 100 UNIT/ML pen INJECT 16-18 UNITS SUBCUTANEOUSLY EVERY EVENING DIRECTED levocetirizine (Xyzal) 5 MG tablet TAKE 1 TABLET BY MOUTH EVERY EVENING losartan (COZAAR) 50 mg, Oral, Nightly magnesium oxide (Mag-Ox) 400 (240 Mg) MG tablet No dose, route, or frequency recorded. metFORMIN (OSM) (FORTAMET) 1,000 mg, Oral, 2 times daily with meals, Do not crush, chew, or split. Mis. Devices (Pulse Oximeter For Finger) [facility] [place] To check your oxygen level every 4 hours. Call the office if O2 Sat drops below 90% montelukast (Singulair) 10 MG tablet TAKE 1 TABLET BY MOUTH AT BEDTIME nitrofurantoin (Macrodantin) 50 MG capsule TAKE 1 CAPSULE BY MOUTH AT BEDTIME TAKE WITH FOOD PEG [id number] (PEG-3350/Electrolytes) 236 g reconstituted solution MIX WITH WATER AND DRINK 240 ML EVERY 10 MINUTES UNTIL FECAL EFFLUENT IS CLEAR DO NOT EXCEED 1/2 BOTTLE riboflavin (vitamin B2) 100 mg tablet tablet No dose, route, or frequency recorded. rosuvastatin (Crestor) 40 MG tablet TAKE 1 TABLET BY MOUTH AT BEDTIME Simethicone Ultra Strength 180 MG capsule No dose, route, or frequency recorded. traZODone (Desyrel) 50 MG tablet TAKE 1 TABLET BY MOUTH AT BEDTIME Trulicity 1.5 mg, Subcutaneous, Weekly UltiCare Short Pen [place] 31G X 8 MM mis USE FIVE TIMES DAILY DIRECTED Follow-up: 3 months for Blood Sugar or sooner if any problem arises. Scribe Attestation: I, Elena Hoyos, am serving as a scribe to document services personally performed by Kera Maria MD, based on the patient's response to questions by provider and provides statements to me. documented in this encounter Miscellaneous Notes * Assessment & Plan Note - Kera Maria MD - 09/11/2024 2:28 PM ESTAssociated Problem(s): Recurrent urinary tract infection - following with [facility], last seen in May 2023 - last UTI in Feb 2024, breakthrough (on nitrofurantoin prophylaxis). - urine culture in Feb 2024 grew Klebsiella. Treated with TMP/SMX. - relative contraindication to SGLT2i * Assessment & Plan Note - Kera Maria MD - 09/11/2024 2:28 PM ESTAssociated Problem(s): Mixed stress and urge urinary incontinence -following with urology * Assessment & Plan Note - Kera Maria MD - 09/11/2024 2:27 PM ESTAssociated Problem(s): Tubular adenoma of colon - Colonoscopy in 2012 showed tubular adenoma - Colonoscopy in Mar 2018 showed no tubular adenoma; recommended to repeat in 5-7 years - Colonoscopy is scheduled for Sep 10, 2024 * Assessment & Plan Note - Elena [...] EST Associated Problem(s): Type 2 diabetes mellitus ([facility]) - A1C 12.3% on 09/08/24, worsened from 9.0% on 05/25/24, worsened from 7% in May 2023 -Continue working on lifestyle modifications -Currently on metformin ER 750 mg bid, consider maximizing -Continue Trulicity 1.5 mg weekly, titrate up as tolerated -SGLT-2 inhibitor has a great CV benefit for her, but she has urinary problem, so we will not try at this time unless there will be a new SGLT-2 inhibitor without side effect -Restart basal insulin 14 units at bedtime. Titrate up as tolerate. Treatment Hx: Glipizide was discontinued due to increased risk of hypoglycemia. Patient self-discontinued Lantus when she started using GLP1RA. Metformin dose was adjusted due to GI symptoms. Last eye exam: 01/05/23, no diabetic retionpathy, [...] steatotic liver disease (MASLD) - following with [facility] - last US in November 2021 * Assessment & Plan Note - Elena Hoyos MA - 09/08/2024 10:23 AM EST Associated Problem(s): Essential hypertension -Goal BP < 140/90 per JNC-8 and < 130/80 per ACC/AHA guideline -Co-managed with pad assembler and any commodity buyer -Slightly elevated BP, possibly due to her [...] - CABG in 2005 - Following with [facility], last note from Aug 2022 - Stress [...] in lumbar spine; -1.9 in femoral neck - continue alendronate, started in 2023 documented in this encounter Plan of Treatment Not on file documented as of this encounter Procedures Procedure Name Priority Date/Time Associated Diagnosis Comments POCT GLYCOSYLATED HEMOGLOBIN (HGB A1C) Routine 09/08/2024 10:01 AM EST Type 2 diabetes mellitus with hyperglycemia, with long-term current use of insulin ([facility]) POCT GLUCOSE Routine 09/08/2024 10:00 AM EST Type 2 diabetes mellitus with hyperglycemia, with long-term current use of insulin ([facility]) documented in this encounter Results [...] hyperglycemia, with long-term current use of insulin ([facility]) Dyslipidemia Other and unspecified hyperlipidemia Osteopenia of lumbar spine History of fracture of pelvis Dietary counseling Dietary surveillance and counseling Exercise counseling Overweight Tubular adenoma of colon Benign neoplasm of colon Recurrent urinary tract infection Urinary tract infection, site not specified documented in this encounter Care Teams Radiology Services Manager Relationship Specialty Start Date End Date Kera Maria MD [address] [place] [phone] PCP - General Family Medicine 07/22/18 documented as of this encounter
--- OUTSIDE RECORDS SUMMARY | 2024-09-16 09:58 | XMS_ITS | Clinical Summary ---
Demographics Address [address] [facility] [address] [place] [address] Mobile Phone Work Phone Home Phone Preferred Language es Marital Status Judaism Affiliation Unknown Race Other Race Ethnic Group or Author Organization [employer] Address [address] [facility] 7t [place] [address] Care Team Providers Care Leak Detector Name Role Phone Kera Maria MD Primary Care Provider [phone] Allergies Active Allergy Reactions Criticality Noted Date Comments Latex 06/21/2023 Medications cholecalciferol (Vitamin D-3) 25 MCG tablet TAKE 1 TABLET BY MOUTH EVERY MORNING 023 Active Misc. Devices (Pulse Oximeter For Finger) miscIndications: COVID-19 To check your oxygen level every 4 hours. Call the office if O2 Sat drops below 90% 1 each [address] 10 MG tablet Active magnesium oxide (Mag-Ox) 400 (240 Mg) MG tablet Active nitrofurantoin (Macrodantin) 50 MG capsule TAKE 1 CAPSULE BY MOUTH AT BEDTIME TAKE WITH FOOD Active Elmiron 100 MG capsule 023 Active riboflavin (vitamin B2) 100 mg tablet tablet 023 Active Simethicone Ultra Strength 180 MG capsule 023 Active UltiCare Short Pen [place] 31G X 8 MM miscIndications: Type 2 diabetes mellitus with hyperglycemia (CMS/HCC) USE FIVE TIMES DAILY DIRECTED 100 each 11 024 Active Aspirin Adult Low Strength 81 MG EC tablet TAKE 1 TABLET BY MOUTH EVERY MORNING 30 tablet 11 024 Active cholecalciferol 25 MCG tablet TAKE 1 TABLET BY MOUTH EVERY MORNING 30 tablet 11 024 Active glucose blood (OneTouch Ultra) test stripIndications :Type 2 diabetes mellitus with other specified complication, unspecified whether assistant terminal manager insulin use ([facility]) TEST BLOOD SUGAR 3 TIMES A DAY 100 strip 11 024 Active Lancets (OneTouch Delica Plus [id number]) miscIndications: Type 2 diabetes mellitus with other specified complication, unspecified whether longterm insulin use ([facility]) TEST BLOOD SUGAR 3 TIMES A DAY 100 each 11 024 Active montelukast (Singulair) 10 MG tablet TAKE 1 TABLET BY MOUTH AT BEDTIME 90 tablet 3 024 Active Bisacodyl EC 5 MG EC tablet TAKE 2 TABLETS BY MOUTH AT BEDTIME FOR 2 DAYS Active Noy-Tussin DM 10-100 MG/5ML liquid TAKE 5ml BY MOUTH EVERY 4 HOURS NEEDED FOR COUGH FOR UP TO 10 DAYS 023 Active PEG 2220-TVm-QdOtf-N aCl-NaSulf (PEG-3350/Electr olytes) 236 g reconstituted solution MIX WITH WATER AND DRINK 240 ML EVERY 10 MINUTES UNTIL FECAL EFFLUENT IS CLEAR DO NOT EXCEED 1/2 BOTTLE Active furosemide (Lasix) 20 MG tablet Take 20 mg by mouth Once per day. 024 Active Alcohol Swabs (Alcohol Prep) 70 % padsIndications: Type 2 diabetes mellitus with hyperglycemia ([facility]) USE DIRECTED WITH INSULIN 100 each 11 024 Active celecoxib (CeleBREX) 200 MG capsule TAKE 1 CAPSULE BY MOUTH EVERY TWELVE HOURS NEEDED FOR PAIN WITH FOOD 40 capsule 1 Active Dulaglutide (Trulicity) 1.5 MG/0.5ML solution auto-injectorInd ications:Type 2 diabetes mellitus with hyperglycemia, with long-term current use of insulin ([facility]) Inject 1.5 [...] 3 024 Active ezetimibe (Zetia) 10 MG tabletIndication s:Mixed hyperlipidemia TAKE 1 TABLET BY MOUTH AT BEDTIME 90 tablet 3 024 Active losartan (Cozaar) 50 MG tablet TAKE 1 TABLET BY MOUTH AT BEDTIME 90 tablet 3 024 Active levocetirizine (Xyzal) 5 MG tabletIndication s:Allergic rhinitis, unspecified seasonality, unspecified trigger TAKE 1 TABLET BY MOUTH EVERY EVENING 90 tablet 1 024 Active traZODone (Desyrel) 50 MG tabletIndication s:Depression, unspecified depression type TAKE 1 TABLET BY MOUTH AT BEDTIME 90 tablet 1 024 Active rosuvastatin (Crestor) 40 MG tablet TAKE 1 TABLET BY MOUTH AT BEDTIME 90 tablet 1 024 Active Lantus SoloStar 100 UNIT/ML pen INJECT 16-18 UNITS SUBCUTANEOUSLY EVERY EVENING DIRECTED 15 mL 11 Active metFORMIN, OSM, (Fortamet) 1000 MG 24 hr tablet Take 1 tablet (1,000 mg) by mouth with breakfast and with evening meal. Do not crush, chew, or split. 60 tablet 11 025 2025 Active Continuous Glucose Day Trader (FreeStyle La 2 [place]) deviceIndication s:Type 2 diabetes mellitus with hyperglycemia, with long-term current use of insulin ([facility]) Scan sensor every 8 hours 1 each 1 Active Continuous Glucose Sensor (FreeStyle La 2 Sensor) miscIndications: Type 2 diabetes mellitus with hyperglycemia, with long-term current use of insulin ([facility]) Apply 1 sensor every 14 days 2 each Active glucose blood (FreeStyle Precision Adeel Test) test strip Use to test blood sugar 3 times daily 100 each 025 2025 Active metFORMIN XR (Glucophage-XR) 750 MG 24 hr tablet TAKE 1 TABLET BY MOUTH TWICE DAILY IN THE MORNING AND IN THE EVENING WITH MEALS 180 tablet 3 024 2024 Discontinued(M ed list cleanup (will not trigger notification to Pharmacy)) Active Problems Problem Noted Date Diagnosed Date Osteopenia 09/07/2024 Assessment & Plan (09/11/2024 2:29 PM EST): - last DEXA in Aug 2023. The lowest T-score -2.2 in lumbar spine; -1.9 in femoral neck - continue alendronate, started in 2023 History of fracture of pelvis 09/07/2024 Coccyx [...] (09/08/2024 10:24 AM EST): - following with [facility] - last US in November 2021 Assessment & Plan (05/29/2024 3:20 PM EST): - following with [facility] - last US in November 2021 Assessment & Plan (06/20/2023 5:47 AM EST): - following with [facility] - last US in November 2021 Restrictive airway disease 06/20/2023 Assessment & Plan (05/29/2024 3:18 PM EST): - evaluated by ground worker - last PFT in December 2022, no obstructive airway disease / RAD - breathing exercise Assessment & Plan (06/20/2023 6:01 AM EST): - evaluated by ground worker - last PFT in December 2022, no obstructive airway disease / RAD - breathing exercise Proteinuria 10/28/2020 Chronic interstitial cystitis 11/25/2017 Assessment & Plan (05/29/2024 3:22 PM EST): Seen by [facility] provider on 02/08/22 for f/u recurrent UTI and IC. Pt currently on Elmiron and nitrofurantoin per note. Assessment & Plan (06/20/2023 5:26 AM EST): Seen by [facility] provider on 02/08/22 for f/u recurrent [...] of colon 08/29/2017 023 Assessment & Plan (09/11/2024 2:27 PM EST): - Colonoscopy in 2012 showed tubular adenoma - Colonoscopy in Mar 2018 showed no tubular adenoma; recommended to repeat in 5-7 years - Colonoscopy is scheduled for Sep 10, 2024 Assessment & Plan (05/29/2024 3:20 PM EST): [...] insufficiency 05/21/2016 06/20/2023 Ischemic heart disease 01/25/2016 Assessment & Plan (09/08/2024 10:23 AM EST): - CABG in 2006 - Following with [facility], last note from Aug 2022 - Stress test and myocardial perfusion imaging in Jun 2022, no ischemia - continue secondary preventative measures. Assessment & Plan (05/29/2024 3:19 PM EST): - CABG in 2006 - Following [...] Mixed stress and urge urinary incontinence 10/1106/12/2023 Assessment & Plan (09/11/2024 2:28 PM EST): -following with urology Atherosclerosis of [place] co ronary artery of [place] heart without angina pectoris 04/25/2015 06/12/2023 Insomnia 04/25/2015 06/12/2023 Overweight 04/25/2015 06/12/2023 Essential hypertension 04/25/2015 3 Assessment & Plan (09/08/2024 10:23 AM EST): -Goal BP < 140/90 per JNC-8 and < 130/80 per ACC/AHA guideline -Co-managed with supply chain systems manager and secretary office clerk -Slightly elevated BP, possibly due to her [...] < 130/80 per ACC/AHA guideline -Co-managed with supply chain systems manager and secretary office clerk -Slightly elevated BP, possibly due to her [...] < 130/80 per ACC/AHA guideline -Co-managed with supply chain systems manager and secretary office clerk -Slightly elevated BP, possibly due to her pain and current condition -Continue working on lifestyle modifications -Recommended self-monitoring BP. -Continue working on lifestyle modifications. -Continue current medications: amlodipine 10 mg daily; losartan 50 mg daily -Treatment Hx: metoprolol - discontinued due to dizziness Type 2 diabetes mellitus 01/05/2013 023 Assessment & Plan (09/11/2024 2:32 PM EST): - A1C 12.3% on 09/08/24, worsened from [...] tract infection 04/22/2012 06/12/2023 Assessment & Plan (09/11/2024 2:28 PM EST): - following with [facility], last seen in May 2023 - last UTI in Feb 2024, breakthrough (on nitrofurantoin prophylaxis). - urine culture in Feb 2024 grew Klebsiella. Treated with TMP/SMX. - relative contraindication to SGLT2i Assessment & Plan (05/24/2024 6:20 AM EST): - following with [facility], last seen in May 2023 - [...] Plan (06/20/2023 5:25 AM EST): Seen by [facility] provider on 02/08/22 for f/u recurrent UTI and IC. Pt currently on Elmiron and nitrofurantoin. -Last UTI DECEMBER 2021. -Cont Elmiron and nitrofurantoin. 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/16/2005 06/12/2023 Resolved Problems Problem Noted Date Diagnosed Date Resolved Date Disorder of vein 06/26/2018 06/12/2023 06/20/2023 Encounters Date Type Department Care Team Description 09/14/2024 Orders Only [facility] [address] [place] [address] ProviderChey MD 09/14/2024 Telephone [facility] [address] [place] [address] Kera Maria MD Prior Authorization 09/10/2024 Orders Only GENERIC EXTERNAL DATA DEPARTMENT Provider, Generic External Data 09/08/2024 10:30 AM EST Office Visit [facility] [address] [place] [phone] Kera Maria MD BART (obstructive sleep apnea) (Primary Dx); S/P CABG x 3; Peripheral venous insufficiency; Ischemic heart disease; Essential hypertension; Metabolic dysfunction-associated steatotic liver disease (MASLD); Mixed stress and urge urinary incontinence; Type 2 diabetes mellitus with hyperglycemia, with long-term current use of insulin ([facility]); Dyslipidemia; Osteopenia of lumbar spine; History of fracture of pelvis; Dietary counseling; Exercise counseling; Overweight; Tubular adenoma of colon; Recurrent urinary tract infection 09/08/2024 Travel 09/03/2024 Telephone [facility] [address] [place] [address] Joanne Jimenez MA chart prep 09/03/2024 Abstract [facility] [address] [place] [address] Joanne Jimenez MA 08/03/2024 Refill [facility] [address] [place] [address] Briana Ambrose ANP 06/29/2024 Refill [facility] [address] [place] [address] Kera Maria MD Allergic rhinitis, unspecified seasonality, [...] - Risk 60-74 years 1-dose series) 2011 COVID-19 Vaccine ( season) 2024 08/23/2021, 10/21/2020, [...] 05/25/2024, 05/25/2024, Additional history exists Tobacco Screening 09/11/2025 09/11/2024 Mammogram 11/28/2025 11/29/2023, 07/22, 08/06/2022, Additional history exists Eye Exam 01/05/2026 01/06/2024 Colonoscopy 09/10/2029 09/10/2024, 04/01/2018 Colorectal Cancer Screening 09/10/2029 DTaP/Tdap/Td Vaccines (3 - Td or Tdap) [...] HM COLONOSCOPY Routine 09/10/2024 1:05 PM EST HEMATOXYLIN AND EOSIN STAIN Routine 09/10/2024 10:14 AM EST GLUCOSE, WHOLE BLOOD Routine 09/10/2024 9:20 AM EST POCT GLYCOSYLATED HEMOGLOBIN (HGB A1C) Routine 09/08/2024 10:01 AM EST Type 2 diabetes mellitus with hyperglycemia, with long-term current use of insulin ([facility]) POCT GLUCOSE Routine 09/08/2024 10:00 AM EST Type 2 diabetes mellitus with hyperglycemia, with long-term current use of insulin ([facility]) DIABETES EYE EXAM Routine 01/06/2024 BI MAMMOGRAM SCREENING TOMOSYNTHESIS BILATERAL Routine 11/29/2023 10:25 AM EDT ALBUMIN, RANDOM URINE W/CREATININE Routine 06/20/2023 1:03 PM EST Type 2 diabetes mellitus without complication, with long-term current use of insulin ([facility]) LIPID PANEL WITH REFLEX TO DIRECT LDL Routine 06/20/2023 1:03 PM EST Type 2 diabetes mellitus without complication, with long-term current use of insulin ([facility]) Dyslipidemia from Last 3 Months or Most Recently Relevant to Health Maintenance Results * Colonoscopy (09/10/2024 1:05 PM EST) us Historical Provider MD HEALTH MAINTENANCE Final Result * Hematoxylin and Eosin Stain (09/10/2024 10:14 AM EST) 09/10/2024 10:1 4 AM EST 09/10/2024 10:42 AM EST Narrative [facility] - 09/14/2024 9:11 AM EST ----- ------- Name: Sofía Penny ? Age/Sex: 74/F ? : 1950 Unit#: [id number] ?? Attend Dr: Mayra Montoya MD ?Re09/10/24 ?Status: DEP SDC ? Location: HO.SSS ?Disch: ? ----- ------- SPEC : [id number] ?RECD: 09/10/24-1041 ? STATUS: ??SOUT ? REQ NUM: [id number] ? LEENA: 09/10/24-1014 ? SUBM DR: Mayra Montoya MD ? ENTERED: ??09/10/24-6 ?SP TYPE: Surgical ? OTHR DR: Kera [...] Copies To: ?? Mayra Montoya MD ?? [facility] ?? [address] ?? [place] [address] ?? [phone] ?? Kera Maria MD ?? [facility] ?? [address] [facility] ?? [place] [address] ?? [phone] ----- ------- Signed (signature on file) Jorge Cooper MD 09/14/24 0911 ? ----- ------- ? END OF REPORT ? us Generic External Data Provider LAB BLOOD ORDERAB LES Final Result Performing Organization Address City/[facility]/ZIP Co de Phone Number [facility] [address] [place] [phone] * (ABNORMAL) Glucose, Whole Blood (09/10/2024 9:20 AM EST) Glucose, Whole Blood 231(H) 60 - 115 mg/dL [facility] Comment:METER #: [id number] 09/10/2024 9:20 AM EST 09/10/2024 9:28 AM EST Generic External Data Provider LAB BLOOD ORDERAB LES Final Result Performing Organization Address [facility] Co de Phone Number [facility] [address] [place] [phone] * (ABNORMAL) POCT glycosylated hemoglobin (Hgb A1c) (09/08/2024 10:01 AM EST) Hemoglobin A1C 12.3(A) 4.0 - 6.0 % QC Media Lot # [id number] Lot# Expiration Date Blood Capillary blood specimen / Unknown 09/08/2024 10:01 AM EST Result [facility] Kera Maria MD POINT OF CARE TEST ENTER/EDIT OR DERABLES Final Result * (ABNORMAL) POCT glucose manually resulted (09/08/2024 10:00 AM EST) Glucose Blood, POC 379(A) 60 - 200 mg/dL QC Media Lot # [id number] Lot# Expiration Date 025 Blood Capillary blood specimen / Unknown 09/08/2024 10:00 AM EST Kera Maria MD POINT OF CARE TEST ENTER/EDIT OR DERABLES Final Result * Hm Diabetes Eye Exam (01/06/2024) Eye Exam Normal Normal 01/06/2024 us Historical Provider MD HEALTH MAINTENANCE Final Result * BI Mammogram Screening Tomosynthesis Bilateral (11/29/2023 10:25 AM EDT) Anatomical Region Laterality Modality Breast Bilateral Mammography 11/29/2023 10:2 5 AM EDT Narrative 12/27/2023 9:22 AM EDT ? [facility] [place] ? [address] ?[place], [place] [address] ? Mammography Report ? Signed ? Patient: Sofía Penny ?MR#: ?? [id number] ? : 1950 ?Acct:[id number] ? Age/Sex: 73 / F ?ADM Date: 11/29/23 ? Loc: HO.MAMMO ? Attending Dr: Kera Maria MD ? Ordering Physician: Kera Maria MD ?Results: 1Negative ? Date of Service: 11/29/23 ?Follow Up: 1 Year From Orig ?? inal Mammogram ? Procedure(s): MM tomosynthesis screening BI ?? Accession Number(s): [id number] ? cc: Kera Maria MD ? EXAMINATION: [...] by Yesica Villar MD in OV> ? 06/07/24 0918 ? DD/ 1025 ? TD/TT: ? Continuous Mining Operator: ? Procedure Note River, Image - 12/27/2023 [place] [facility] [address] [place] [address] Mammography Report Signed Patient: Kaylee Penny#: [id number] : 1950cct:[id number] Age/Sex: 73 / FADM Date: 11/29/23 Loc: NICKIE Attending Dr: Kera Maria MD Ordering Physician: Kera Mariaesults: 1Negative Date of Service: 11/29/23Follow Up: 1 Year From Orig inal Mammogram Procedure(s): MM tomosynthesis screening BI Accession Number(s): [id number] cc: Kera Maria MD EXAMINATION: MM SCREENING [...] in OV> 12/27/23 0918 DD/ 1025 TD/TT: Continuous Mining Operator: Kera Maria MD IM BI PROCEDURES Edited Result - Final * (ABNORMAL) Lipid Panel with Reflex to Direct LDL (06/20/2023 1:03 PM EST) Triglycerides 190(H) <150 mg/dL [facility] Comment:Desirable Triglyceri de: less than 150 mg/dLBorderline High Triglyceride 150-199 mg/dLHigh Triglyceride: 200-499 mg/dLVery High Triglyceride: greater than or equal to 5OO mg/dL Cholesterol 120 <200 mg/dL [facility] Comment:Desirable Cholestero l: less than 200 mg/dLBorderline High Cholesterol: 200-239 mg/dLHigh Cholesterol: greater than 239 mg/dL LDL Cholesterol Calculated 33 <100 mg/dL [facility] Comment:Desirable LDL: less than 100 mg/dLNear Optimal/Above Optimal LDL: 110- 129 mg/dLBorderline High LDL: 130-159 mg/dLHigh LDL: 160-189 mg/dLVery High LDL: greater than or equal to 190 mg/dL HDL Cholesterol 49 >40 mg/dL [facility] Comment:Desirable HDL: great er than 40 mg/dL Note: This HDL assay may give artificially low results in patients with liver disease. Blood 06/20/2023 1:03 PM EST 06/20/2023 3:54 PM EST Kera Maria MD LAB BLOOD ORDERABLES Final Resul t Performing Organization Address [facility] Phone Number [facility] [address] [place] [phone] * (ABNORMAL) Albumin, Random Urine W/Creatinine (06/20/2023 1:03 PM EST) Creatinine, Urine 187.00 mg/dL [facility] Microalbumin Urine 170.0 mg/L H [facility] Microalbum Creatinine Ratio Ur 90.9(H) <30 ug/mg cr [facility] Comment:Albumin/Creatinine R atio Reference Ranges: Normal: < 30 ug/mg creatinine Microalbuminuria: 30 - 300 ug/mg creatinineClinical Albuminuria: > 300 ug/mg creatinine Urine 06/20/2023 1:03 PM EST 06/20/2023 4:17 PM EST Kera Maria MD LAB URINE ORDERABLES Final Resul t Performing Organization Address [facility] de Phone Number [facility] [address] [place] [phone] from Last 3 Months or Most Recently Relevant to Health Maintenance Insurance [facility] STAND[facility] ARCHIE REILLY [address] [place] [address] [id number] [place] [id number] [place] [phone] Care Teams Leak Detector Relationship Specialty Start Date End Date Kera Maria MD [address] [place] [phone] PCP - General Family Medicine 07/22/18
--- OUTSIDE RECORDS SUMMARY | 2024-09-16 09:58 | XMS_ITS | Encounter Summary ---
Author Organization [employer] Address [address] [facility] [facility] [address]t [place] [address] Care Team Providers Care Dental Hygiene Instructor Name Role Phone Kera Maria MD Primary Care Provider [phone] Encounter Details Date Type Department Care Team [...] on filedocumented in this encounter Care Teams Dental Hygiene Instructor Relationship Specialty Start Date End Date Kera Maria MD [address] [place] [address] PCP - General Family Medicine 07/22/18 documented as of this encounter
--- OUTSIDE RECORDS SUMMARY | 2024-09-16 09:58 | XMS_ITS | Encounter Summary ---
Author Organization [employer] Address [address] [facility] [address] [place] [address] Care Team Providers Care Non Food Receiving Clerk Name Role Phone Kera Maria MD Primary Care Provider [phone] Encounter Details Date Type Department Care Team (Late st Contact Info) Description 09/03/2024 Abstract [facility] [address] [place], [place] [phone] Joanne Jimenez MA Social History Tobacco Use [...] on filedocumented in this encounter Care Teams Non Food Receiving Clerk Relationship Specialty Start Date End Date Kera Maria MD [address] [place] [phone] PCP - General Family Medicine 07/22/18 documented as of this encounter
--- OUTSIDE RECORDS SUMMARY | 2024-09-16 09:58 | XMS_ITS | Encounter Summary ---
Author Organization [facility] Address [address] [facility] 7t [place] [address] Care Team Providers Care Import/Export Freight Forwarder Name Role Phone Kera Maria MD Primary Care Provider [phone] Reason for Referral * Imaging (Routine) - Closed Specialty Diagnoses / Procedures Referred By Contac t Referred To Contact Radiology Diagnoses Closed fracture of single pubic ramus of pelvis, right, initial encounter (CMS/HCC) Postmenopause Osteoporosis screening declined Procedures BD DEXA Axial Kera Maria MD [address] [place] [address] Phone: tel: fax: [address] Phone: tel: fax: Referral ID Status Reason Start Date Expiration Date Visits Re quested Visits Authorized [id number] Closed 08/26/2023 08/25/2024 1 1 Encounter Details Date Type Department Care Team (Late st Contact Info) Description 08/26/2023 Orders Only [facility] [address] [place] [phone] Kera Maria MD [address] [place], [place] [phone] Closed fracture of single pubic ramus of [...] pubic ramus of pelvis, right, initial encounter ([facility]) Postmenopause Osteoporosis screening declined documented in this encounter Results * BD DEXA Axial (09/13/2023 9:20 AM EST) Anatomical Region Laterality Modality Body Radiographic Collette ging 09/13/2023 9:20 AM EST Narrative 09/13/2023 5:44 PM EST ? [facility] ? [address] ?[place] [address] ? Mammography Report ? Signed ? Patient: David Momin,Sofía ?MR#: ?? [id number] ? : 1950 ?Acct:[id number] ? Age/Sex: 73 / F ?ADM Date: 09/13/23 ? Loc: HO.MAMMO ? Attending Dr: Kera Maria MD ? Ordering Physician: Kera Maria MD ?Results: ? Date of Service: 09/13/23 ?Follow Up: ? Procedure(s): XR DEXA axial skeleton ?? Accession Number(s): [id number] ? cc: Kera Maria MD ? EXAMINATION: ?? BONE DENSITOMETRY ? CLINICAL INDICATION: ?? Postmenopausal. ? COMPARISON: ?? This is the patient's baseline examination. ? TECHNIQUE: Using a [employer] Advance DXA System (software version: ?? 13.1) manufactured by [employer], dual-energy x-ray absorptiometry ?? was performed of [...] 1740 ? DD/ 9 ? TD/TT: ? Station Air Traffic Control Specialist: DOROTHEA ? Procedure Note Donotuseinterpreter, Image - 09/13/2023 [place] [facility] [address] [place], [place] [address] Mammography Report Signed Patient: Kaylee Penny#: [id number] : 1950cct:[id number] Age/Sex: 73 / FADM Date: 09/13/23 Loc: HO.MAMMO Attending Dr: Kera Maria MD Ordering Physician: Kera Mariaults: Date of Service: 09/13/23Follow Up: Procedure(s): XR DEXA axial skeleton Accession Number(s): [id number] cc: Kera Maria MD EXAMINATION: BONE DENSITOMETRY CLINICAL INDICATION: Postmenopausal. COMPARISON: This is the patient's baseline examination. TECHNIQUE: Using a [employer] Application DXA System (software version: 13.1) manufactured by [employer], dual-energy x-ray absorptiometry was performed of the [...] in OV> 09/13/23 1740 DD/ 0920 TD/TT: Station Air Traffic Control Specialist: SK Kera Maria MD IM DXA PROCEDURES Final Result documented in this encounter Visit Diagnoses Diagnosis Closed fracture of single pubic ramus of pelvis, right, initial encounter ([facility])- Primary Postmenopause Asymptomatic postmenopausal status (age-related) (natural) Osteoporosis screening declined documented in this encounter Care Teams Import/Export Freight Forwarder Relationship Specialty Start Date End Date Kera Maria MD [address] [place] [phone] PCP - General Family Medicine 07/22/18 documented as of this encounter
--- OUTSIDE RECORDS SUMMARY | 2024-09-16 09:58 | XMS_ITS | Encounter Summary ---
Author Organization [employer] Address [address] [facility] 7t [place] [address] Care Team Providers Care Wood Box Maker Name Role Phone Kera Maria MD Primary Care Provider Reason for Visit * Reason Comments Med Refill Encounter Details Date Type Department Care Team ([facility] Contact Info) Description 04/17/2024 Refill [facility] MEDICINE [address] [place], [place] [phone] Kera Maria MD [address] [place], [place] [phone] Social History Tobacco Use Types Packs/Day Years [...] on filedocumented in this encounter Care Teams Wood Box Maker Relationship Specialty Start Date End Date Kera Maria MD [address] [place] [address] PCP - General Family Medicine 07/22/18 documented as of this encounter
--- OUTSIDE RECORDS SUMMARY | 2024-09-16 09:58 | XMS_ITS | Encounter Summary ---
Author Organization [employer] Address [address] [facility] [address] [place] [address] Care Team Providers Care Sheet Heater Helper Name Role Phone Kera Maria MD Primary Care Provider [phone] Reason for Visit * Reason Onset Date Comments chart prep 09/03/2024 Encounter Details Date Type Department Care Team ([facility] st Contact Info) Description 09/03/2024 Telephone [facility] MEDICINE [address] [place], [place] [phone] Joanne Jimenez MA chart prep Social History [...] on filedocumented in this encounter Care Teams Sheet Heater Helper Relationship Specialty Start Date End Date Kera Maria MD [address] [place] [id number] PCP - General Family Medicine 07/22/18 documented as of this encounter
--- OUTSIDE RECORDS SUMMARY | 2024-09-16 09:58 | XMS_ITS | Encounter Summary ---
Author Organization [employer] Address [address] [facility] 7t [place] [address] Care Team Providers Care Risk Adjustment Specialist Name Role Phone Kera Maria MD Primary Care Provider [phone] Encounter Details Date Type Department Care Team (Late st Contact Info) Description 03/11/2023 Orders Only [facility] MED & PEDS [address] [place], [place] [phone] Elena Unger LPN Social History Tobacco Use [...] on filedocumented in this encounter Care Teams Risk Adjustment Specialist Relationship Specialty Start Date End Date Kera Maria MD [address] [place] [id number] PCP - General Family Medicine 07/22/18 documented as of this encounter
--- OUTSIDE RECORDS SUMMARY | 2024-09-16 09:58 | XMS_ITS | Encounter Summary ---
Author Organization [employer] Address [address] [facility] 7t [place] [address] Care Team Providers Care Grain Broker And Market Operator Name Role Phone Kera Maria MD Primary Care Provider [phone] Encounter Details Date Type Department Care Team (Late st Contact Info) Description 04/09/2023 Orders Only [facility] MED & PEDS [address] [place], [place] [phone] Juhi Onofre LPN Social History Tobacco Use [...] on filedocumented in this encounter Care Teams Grain Broker And Market Operator Relationship Specialty Start Date End Date Kera Maria MD [address] [place] [address] PCP - General Family Medicine 07/22/18 documented as of this encounter
--- OUTSIDE RECORDS SUMMARY | 2024-09-16 09:58 | XMS_ITS | Encounter Summary ---
Author Organization [employer] Address [address] [facility] 7t [place] [address] Care Team Providers Care Roll Hauler Name Role Phone Kera Maria MD Primary Care Provider [phone] Reason for Visit * Reason Onset Date Comments Appointment Request 05/10/2023 Encounter Details Date Type Department Care Team ([facility] st Contact Info) Description 05/10/2023 Telephone [facility] MEDICINE [address] [place] [address] Kera Maria MD [address] [place] [address] Appointment Request Social History Tobacco Use Types [...] appt with PCP, any question contact pt [phone]. documented in this encounter Plan of Treatment Not on file documented as of this encounter Visit Diagnoses Not on filedocumented in this encounter Care Teams Roll Hauler Relationship Specialty Start Date End Date Kera Maria MD [address] [place] [address] PCP - General Family Medicine 07/22/18 documented as of this encounter
--- OUTSIDE RECORDS SUMMARY | 2024-09-16 09:59 | XMS_ITS | Encounter Summary ---
Author Organization [employer] Address [address] [facility] [address] [place] [address] Care Team Providers Care Park Worker Name Role Phone Kera Maria MD Primary Care Provider [phone] Reason for Visit * Reason Comments Med Refill Encounter Details Date Type Department Care Team ([facility] st Contact Info) Description 07/04/2023 Refill [facility] MED & PEDS [address] [place], [place] [phone] Kera Maria MD [address] [place], [place] [phone] Social History Tobacco Use Types Packs/Day Years [...] on filedocumented in this encounter Care Teams Park Worker Relationship Specialty Start Date End Date Kera Maria MD [address] [place] [address] PCP - General Family Medicine 07/22/18 documented as of this encounter
--- OUTSIDE RECORDS SUMMARY | 2024-09-16 09:59 | XMS_ITS | Encounter Summary ---
Author Organization [employer] Address [address] [facility] 7t [place] [address] Care Team Providers Care Clinical Research Scientist Name Role Phone Kera Maria MD Primary Care Provider [phone] Reason for Visit * Reason Onset Date Comments Prior Authorization 09/14/2024 Encounter Details Date Type Department Care Team ([facility] st Contact Info) Description 09/14/2024 Telephone [facility] MEDICINE [address] [place], [place] [phone] Kera Maria MD [address] [place], [place] [phone] Prior Authorization Social History Tobacco Use Types Packs/Day Years [...] encounter Miscellaneous Notes * Telephone Encounter - Charley Lawrence RN - 09/14/2024 4:19 PM EST Faxed signed PA packet to [place] as below * Telephone Encounter - Tiffanie Childs RN - 09/14/2024 9:39 AM EST Prior authorization required for continuous glucose monitor. Packet generated and placed on PCP desk for signature. Will task to call pt to schedule CGM RN visit once PA approved. -- Dr Maria Please schedule appointment for CGM education. Thank you documented in this encounter Plan of Treatment Not on file documented as of this encounter Visit Diagnoses Not on filedocumented in this encounter Care Teams Clinical Research Scientist Relationship Specialty Start Date End Date Kera Maria MD [address] [place] [address] PCP - General Family Medicine 07/22/18 documented as of this encounter
--- OUTSIDE RECORDS SUMMARY | 2024-09-16 09:59 | XMS_ITS | Encounter Summary ---
Author Organization [employer] Address [address] [facility] 7t [place] [address] Care Team Providers Care Simonizer Name Role Phone Kera Maria MD Primary Care Provider [phone] Reason for Visit * Reason Onset Date Comments Results 06/26/2023 Encounter Details Date Type Department Care Team ([facility] Contact Info) Description 06/26/2023 Telephone [facility] MEDICINE [address] [place], [place] [phone] Kera Maria MD [address] [place], [place] [phone] Results Social History Tobacco Use Types Packs/Day [...] xray to knee. Please contact pt at [phone] (speech instructor needed) documented in this encounter Plan of Treatment Not on file documented as of this encounter Visit Diagnoses Not on filedocumented in this encounter Care Teams Simonizer Relationship Specialty Start Date End Date Kera Maria MD [address] [place] [address] PCP - General Family Medicine 07/22/18 documented as of this encounter
--- OUTSIDE RECORDS SUMMARY | 2024-09-16 09:59 | XMS_ITS | Clinical Summary ---
Demographics Address [address] [place] [address] Mobile Phone Home Phone Preferred Language es Marital Status Unknown Alevism Affiliation Unknown Race Unknown Ethnic Group Unknown Author Organization [facility] Address [address] [place] [address] Phone Care Team Providers Care Science Specialist Name Role Phone Kera Maria MD Primary Care Provider [phone] Allergies No known active allergies Medications aspirin [...] 05/25/2024, , 08/03/2020, Additional history exists [place] [address] [employer] [facility] ([id number]) [place] [address] [employer] [facility] ([id number]) Care Teams Science Specialist Relationship Specialty Start Date End Date Kera Maria MD PCP - General 08/01/20
--- OUTSIDE RECORDS SUMMARY | 2024-09-16 09:59 | XMS_ITS | Encounter Summary ---
Author Organization [employer] Address [address] [facility] 7t [place] [address] Care Team Providers Care Golf Technician Name Role Phone Kera Maria MD Primary Care Provider [phone] Encounter Details Date Type Department Care Team (Late st Contact Info) Description 05/22/2023 Orders Only [facility] MED & PEDS [address] [place], [place] [phone] Juhi Onofre LPN Social History Tobacco Use [...] on filedocumented in this encounter Care Teams Golf Technician Relationship Specialty Start Date End Date Kera Maria MD [address] [place] [address] PCP - General Family Medicine 07/22/18 documented as of this encounter
== END 2024-09-16 09:44 | disposition home or self-care (01) ==
PROVIDERS: PCP Family Medicine; Visit Provider Nurse Practitioner Family
DX: R32 Unspecified urinary incontinence (principal); N30.10 Interstitial cystitis (chronic) without hematuria; N39.0 Urinary tract infection, site not specified; Z13.9 Encounter for screening, unspecified
CPT/HCPCS: 99214; G2211

== ENCOUNTER → 2024-09-16 09:05 | Outpatient (BNVA) | payer OTHER, SELFPAY | PROVIDERS: PCP Family Medicine; Visit Provider Nurse Practitioner Family | DX: N30.10 Interstitial cystitis (chronic) without hematuria (principal); R32 Unspecified urinary incontinence | CPT/HCPCS: 81003; 99212 ==

== ENCOUNTER 2024-10-02 18:44 | Emergency (ER) | payer OTHER, SELFPAY ==
--- NOTE | ~2024-10-02 | XR_ITS ---
CLINICAL HISTORY: dyspnea 2 view chest x-ray Comparison: DX/SR - XR CHEST 2V - 10/19/22 13:51 EDT Findings: No consolidation or effusion. Normal size heart. No acute fracture. IMPRESSION: 1. No acute findings. This document has been electronically signed by: Gricelda Dove MD on 10/02/2024 20:00:36
[2024-10-02 18:58] VITALS: BP 158/62; PULSE 80; RESP 22; TEMP 37.1; O2SAT 99; BMI 31.1
--- NOTE | 2024-10-02 18:58 | ED_ITS ---
HPI - General Adult General Chief complaint: Dyspnea Stated complaint: SOB high bp Time Seen by Provider: 10/02/24 21:47 Source: patient Mode of arrival: ambulatory Limitations: no limitations History of Present Illness ED Provider: HPI narrative: Patient's history of chronic restrictive lung disease coronary artery disease status post CABG follow up by veterinary surgery technologist for chronic dyspnea on exertion using albuterol inhaler comes here for similar presentation for last few days denies any chest pain/palpitation leg swelling Related Data Home Medications ?Medication ?Instructions ?Recorded ?Confirmed amlodipine 10 mg tablet 10 mg PO QAM 07/13/20 09/10/24 aspirin 81 mg tablet,delayed 81 mg PO QAM 07/13/20 09/10/24 release blood sugar diagnostic #10 ea 07/13/20 06/05/23 ezetimibe 10 mg tablet 10 mg PO BEDTIME 07/13/20 09/10/24 lancets 33 gauge #100 ea 07/13/20 06/05/23 losartan 50 mg tablet 50 mg PO DAILY 07/13/20 09/10/24 rosuvastatin 40 mg tablet 40 mg PO DAILY 07/13/20 09/10/24 trazodone 50 mg tablet 50 mg PO BEDTIME 07/13/20 09/10/24 metformin 750 mg tablet,extended 750 mg PO BID 05/03/21 09/10/24 release 24 hr insulin glargine 100 unit/mL (3 16 unit subcut QPM 05/14/23 09/10/24 mL) subcutaneous pen (Lantus Solostar U-100 Insulin) alcohol swabs (Alcohol Prep Pads) 1 pad topical TID 10/22/23 furosemide 20 mg tablet 20 mg PO DAILY 04/29/24 09/10/24 dulaglutide 0.75 mg/0.5 mL 0.75 mg subcut QWEEK 09/16/24 subcutaneous pen injector (Trulicity) insulin glargine 100 unit/mL 10 unit subcut QPM 09/16/24 subcutaneous solution (Lantus U-100 Insulin) Previous Rx's ?Medication ?Instructions ?Recorded fluticasone propionate 50 2 spray intranasal DAILY 30 days 03/26/24 mcg/actuation nasal #15.8 mL spray,suspension loratadine 10 mg tablet (Claritin) 10 mg PO DAILY 30 days #30 tabs 03/26/24 montelukast 10 mg tablet 10 mg PO BEDTIME 30 days #30 tabs 03/26/24 famotidine 10 mg tablet (Acid 10 mg PO BID #60 ea 06/03/24 Sql Server Dba Developer (famotidine)) simethicone 180 mg capsule (Gas 180 mg PO QID #120 caps 06/03/24 Relief (simethicone)) magnesium oxide 400 mg (241.3 mg 400 mg PO BEDTIME 30 days #30 tabs 07/02/24 magnesium) tablet nitrofurantoin macrocrystal 50 mg 50 mg PO BEDTIME 90 days #90 caps 09/16/24 capsule solifenacin 5 mg tablet (Vesicare) 5 mg PO DAILY 30 days #30 tabs 09/16/24 Allergies Allergy/AdvReac Type Severity Reaction Status Date / Time adhesive tape [ADHESIVE TAPE] Allergy Intermediate RASH-LOCALI Verified 10/02/24 19:02 ZED latex Allergy Rash Verified 10/02/24 19:02 Review of Systems 2 Review of Systems: Yes all other systems are reviewed and are negative [facility] Past Medical History Medical History Diabetes Osteoarthritis Migraine Elevated cholesterol CAD (coronary artery disease) BART (obstructive sleep apnea) Chronic restrictive lung disease DILSHAD (stress urinary incontinence, female) Recurrent UTI (urinary tract infection) Surgical History H/O esophagogastroduodenoscopy H/O colonoscopy History of bladder suspension procedure S/P CABG x 3 History of tubal ligation History of hysterectomy Family History Family History Father Alcohol abuse Cirrhosis Mother Cervical cancer Paternal Grandfather Stomach cancer Social History Social History Household Members: Children Alcohol intake: never Patient Tobacco Use Status: Never used Tobacco Smoked in Last 30 Days: No Use of substances other than those prescribed or required for medical reasons: No Advance Directives: Yes Advance Directives on File: Yes Advance Directives Date on File: 05/14/23 Do you have a plan to hurt others: No Plan Current occupational status: retired Current occupation: lt handed Physical Exam ED Vital Signs: Vital Signs - 24 hr 10/02/24 18:58 10/02/24 22:06 10/02/24 22:15 Temperature 98.7 F 98.3 F Pulse Rate 80 65 74 Respiratory Rate 22 H 14 Blood Pressure 158/62 H 122/53 L Pulse Oximetry 99 97 Oxygen Delivery Method Room Air Room Air BMI result Body Mass Index 31.1 Appearance: Alert. Oriented X3. No acute distress. Eyes: PERRLA, No Nystagmus ENT: Pharynx normal. Oral Mucosa moist Neck: Normal inspection. Neck supple. CVS: Normal heart rate and rhythm. Pulses normal. Respiratory: No respiratory distress. Equal air entry bilateral, no wheezing/rales/rhonchi bilateral prolonged expiration Abdomen: Soft and nontender. Bowel sounds are present, no mass palpable, no CVA tenderness Skin: Skin warm and dry. Normal skin color. Normal skin turgor. Extremities: No lower extremity edema. No calf tenderness Neuro: Oriented X 3. No motor deficit. No sensory deficit.No cerebellar signs , cranial nerves II-XII intact Course Course Course Narrative: This is a rapid medical exam performed by Davis Dias NP: Additional HPI, ROS, PE not included below will be deferred to primary provider. Patient is a 74-year-old Afghan speaking female with pmhx T2DM, migraines, OA, chronic idiopathic constipation, CAD, HTN, high cholesterol, GERD, ALMENDAREZ, chronic restrictive lung disease presenting with shortness of breath and chest tightness since 6pm today. Lungs clear, O2 100% ra, increased WOB. Plan: EKG, labs, CXR Medications Administered Discontinued Medications Generic Name Dose Route Start Last Admin Trade Name Freq PRN Reason Stop Dose Admin Albuterol/Ipratropium 3 ml 10/02/24 22:04 10/02/24 22:13 Albuterol/Iprat 2.5/0.5mg 3 Ml Ampul.Neb INHALE 10/02/24 22:05 3 ml ONCE ONE Administration Ondansetron HCl 4 mg 10/02/24 19:41 10/02/24 19:44 Ondansetron Odt 4 Mg Tab.Rapdis TRANSLINGU 10/02/24 19:42 4 mg ONCE ONE Administration Medical Decision Making Medical Decision Making MDM Narrative: Patient's restrictive lung disease followed by veterinary surgery technologist no history of CHF in the past comes here for increased shortness a breath saturating 98% at room air chest x-ray without any acute finding BNP normal Lab Data MDM Lab Attestation statement: I reviewed the patient's lab results. 10/02/24 19:08 10/02/24 19:08 Labs: Lab Results 10/02/24 Range/Units 19:08 WBC 6.8 (4.8-10.8) X10*3/uL RBC 4.33 (4.20-5.50) X10*6/uL Hgb 12.0 (12.0-16.0) g/dl Hct 35.5 L (37.0-47.0) % MCV 82.0 (80.0-98.0) fL MCH 27.7 (27.0-33.0) pg MCHC 33.8 (31.0-35.0) g/dl RDW 13.6 (11.0-16.0) % Plt Count 182 (160-400) X10*3/uL MPV 9.4 (9.4-12.3) fL Immature Gran % (Auto) 0.1 (0.0-0.4) % Neut % (Auto) 52.7 (45-73) % Lymph % (Auto) 36.1 (20-40) % Monroe % (Auto) 7.8 (2-11) % Eos % (Auto) 2.7 (0-4) % Baso % (Auto) 0.6 (0-2) % Lymph # (Auto) 2.5 (1.2-4.9) X10*3/uL Monroe # (Auto) 0.5 (0.1-1.2) X10*3/uL Eos # (Auto) 0.2 (0.0-0.4) X10*3/uL Baso # (Auto) 0.0 (0.0-0.2) X10*3/uL Abs Immat Gran (auto) 0.01 (0.00-0.03) X10*3/uL Absolute Neuts (auto) 3.6 (2.0-8.3) x10*3/uL Absolute Nucleated RBC 0.000 (0.0-0.012) X10*3/uL Nucleated RBC % (auto) 0.0 (0.0-0.2) /100WBC Sodium 137 (135-145) mmol/L Potassium 3.9 (3.3-5.1) mmol/L Chloride 100 (96-108) mmol/L Carbon Dioxide 27 (22-29) mmol/L Anion Gap 14 (12-20) BUN 16 (9-16) mg/dL Creatinine 0.80 (0.5-1.4) mg/dL Estim Creat Clear Calc 55.5 Estimated GFR > 60 Random Glucose 228 H (60-115) mg/dL Calcium 10.1 (8.4-10.2) mg/dL Total Bilirubin 0.4 (0.0-1.0) mg/dL AST 31 (5-31) U/L ALT 34 H (0-31) U/L Alkaline Phosphatase 100 (39-117) U/L Troponin I High Sens < 2.7 (<3.5-17.0) ng/L B-Natriuretic Peptide 19 (<100) pg/mL Total Protein 8.3 H (6.5-8.0) g/dL Albumin 4.3 (3.5-5.0) g/dL Influenza Type A (PCR) NEGATIVE (Negative) Influenza Type B (PCR) NEGATIVE (Negative) RSV RNA Qual (PCR) NEGATIVE (Negative) SARS-CoV-2 RNA (RT-PCR) NEGATIVE (Negative) Independent Interpretation I performed an independent interpretation of an: Plain X-Ray Interpretation: No acute Radiology Impression Discussion of test interpretation with radiology: I have reviewed the radiologist's reading. Discharge Plan Discharge Clinical Impression: Acute exacerbation of chronic obstructive airways disease Patient Disposition: Home, Self-Care Instructions: COPD (Chronic Obstructive Pulmonary Disease) (ED) Additional Instructions: Continue your albuterol nebulizing treatment at home Continue rest of the medications Follow up with your veterinary surgery technologist Prescriptions: No Action simethicone [Gas Relief (simethicone)] 180 mg capsule 180 mg PO QID Qty: 120 6RF famotidine [Acid Sql Server Dba Developer (famotidine)] 10 mg tablet 10 mg PO BID Qty: 60 6RF magnesium oxide 400 mg (241.3 mg magnesium) tablet 400 mg PO BEDTIME 30 Days Qty: 30 6RF Rx Instructions: may hold for loose stools insulin glargine [Lantus Solostar U-100 Insulin] 100 unit/mL (3 mL) insulin pen 16 unit subcut QPM metformin 750 mg tablet extended release 24 hr 750 mg PO BID rosuvastatin 40 mg tablet 40 mg PO DAILY aspirin 81 mg tablet,delayed release (DR/EC) 81 mg PO QAM trazodone 50 mg tablet 50 mg PO BEDTIME losartan 50 mg tablet 50 mg PO DAILY (DME) lancets 33 gauge misc See Rx Instructions Not Applicable TID Qty: 100 Rx Instructions: As directed ezetimibe 10 mg tablet 10 mg PO BEDTIME amlodipine 10 mg tablet 10 mg PO QAM (DME) OneTouch Ultra Blue Test Strip Strip See Rx Instructions Not Applicable TID Qty: 10 Rx Instructions: As directed alcohol swabs [Alcohol Prep Pads] Pads, Medicated 1 pad topical TID montelukast 10 mg tablet 10 mg PO BEDTIME 30 Days Qty: 30 8RF loratadine [Claritin] 10 mg tablet 10 mg PO DAILY 30 Days Qty: 30 11RF fluticasone propionate 50 mcg/actuation spray,suspension 2 spray intranasal DAILY 30 Days Qty: 15.8 11RF furosemide 20 mg tablet 20 mg PO DAILY insulin glargine [Lantus U-100 Insulin] 100 unit/mL solution 10 unit subcut QPM Trulicity 0.75 mg/0.5 mL pen injector 0.75 mg subcut QWEEK nitrofurantoin macrocrystal 50 mg capsule 50 mg PO BEDTIME 90 Days Qty: 90 1RF Rx Instructions: must administer with a meal/food solifenacin [Vesicare] 5 mg tablet 5 mg PO DAILY 30 Days Qty: 30 3RF Print Language: Afghan
--- NOTE | 2024-10-02 19:01 | ECG_ITS ---
Test Reason : CHEST PAIN Blood Pressure : */* mmHG Vent. Rate : 74 BPM Atrial Rate : 74 BPM P-R Int : 146 ms QRS Dur : 94 ms QT Int : 416 ms P-R-T Axes : 42 1 32 degrees QTcB Int : 461 ms Normal sinus rhythm Normal ECG When compared with ECG of 29-Apr-2019 09:20, No significant change was found Referred By: Anni Dias Electronically Signed By: MARVIN STEINBERG
[2024-10-02 19:17] LABS: MANUAL DIFF FLAG NO
[2024-10-02 19:18] LABS: Basophils Percent Auto 0.6 % (0-2); Eosinophils Absolute Auto 0.2 X10*3/uL (0.0-0.4); Eosinophils Percent Auto 2.7 % (0-4); Hematocrit 35.5 % (37.0-47.0); Imm Gran Abs Auto 0.01 X10*3/uL (0.00-0.03); Imm Gran Pct Auto 0.1 % (0.0-0.4); Lymphocytes Absolute Auto 2.5 X10*3/uL (1.2-4.9); Lymphocytes Percent Auto 36.1 % (20-40); Mean Corpuscular HGB Conc 33.8 g/dl (31.0-35.0); Mean Corpuscular Hemoglobin 27.7 pg (27.0-33.0); Mean Platelet Volume 9.4 fL (9.4-12.3); Monocytes Absolute Auto 0.5 X10*3/uL (0.1-1.2); Monocytes Percent Auto 7.8 % (2-11); Neutrophils Absolute Auto 3.6 x10*3/uL (2.0-8.3); Neutrophils Percent Auto 52.7 % (45-73); Platelet Count 182 X10*3/uL (160-400); Red Blood Count 4.33 X10*6/uL (4.20-5.50); Red Cell Distribution Width 13.6 % (11.0-16.0); White Blood Count 6.8 X10*3/uL (4.8-10.8)
[2024-10-02 19:38] LABS: Alanine Aminotransferase 34 U/L (0-31); Albumin Level 4.3 g/dL (3.5-5.0); Alkaline Phosphatase 100 U/L (39-117); Anion Gap 14 (12-20); Aspartate Amino Transferase 31 U/L (5-31); Bilirubin Total 0.4 mg/dL (0.0-1.0); Blood Urea Nitrogen 16 mg/dL (9-16); Calcium 10.1 mg/dL (8.4-10.2); Carbon Dioxide 27 mmol/L (22-29); Chloride 100 mmol/L (96-108); Creatinine Clr Calc Pharmacy 55.5; Estimated Glomerular Filt Rate > 60; Glucose Random 228 mg/dL (60-115); Potassium 3.9 mmol/L (3.3-5.1); Sodium 137 mmol/L (135-145); Total Protein 8.3 g/dL (6.5-8.0)
[2024-10-02 19:42] LABS: B Type Natriuretic Peptide 19 pg/mL (<100)
[2024-10-02] MEDS: Ondansetron ODT 4 MG TAB.RAPDIS TRANSLINGU (19:44)
--- NOTE | 2024-10-02 19:46 | PC.NURSE ---
medicated for nausea.
[2024-10-02 19:49] LABS: Troponin-I High Sensitivity < 2.7 ng/L (<3.5-17.0)
[2024-10-02 20:08] LABS: Influenza A PCR NEGATIVE (Negative); Influenza B PCR NEGATIVE (Negative); Resp Syncy Virus RNA Qual PCR NEGATIVE (Negative); SARS COV2 PCR INHOUSE NEGATIVE (Negative)
[2024-10-02 22:06] VITALS: BP 122/53; PULSE 65; RESP 14; TEMP 36.8; O2SAT 97
[2024-10-02] MEDS: Albuterol/Iprat 2.5/0.5MG 3 ML AMPUL.NEB INHALE (22:13)
[2024-10-02 22:15] VITALS: PULSE 74; O2SAT 98
--- NOTE | 2024-10-02 22:40 | PC.NURSE ---
pt received a breathing treatment from respiratory, reviewed discharge instructions with pt. pt verbalized understanding, no sign of respiratory distress.
[2024-10-02 22:41] VITALS: BP 150/60; PULSE 74; RESP 16; TEMP 36.1; O2SAT 98
== END 2024-10-02 22:43 | disposition home or self-care (01) ==
PROVIDERS: Registered Nurse Emergency; Emergency Provider Internal Medicine; PCP Family Medicine
DX: J44.1 Chronic obstructive pulmonary disease with (acute) exacerbation (principal); R07.89 Other chest pain; Z03.818 Encounter for observation for suspected exposure to other biological agents ruled out; Z79.899 Other long term (current) drug therapy
CPT/HCPCS: 0241U; 36415; 71046; 80053; 83880; 84484; 85025; 93005; 94640; 99284; 99285

== ENCOUNTER → 2024-10-02 19:01 | Outpatient (BNV) | payer OTHER, SELFPAY | PROVIDERS: Emergency Provider Internal Medicine; PCP Family Medicine; Visit Provider Internal Medicine | DX: R07.9 Chest pain, unspecified (principal) | CPT/HCPCS: 93010 ==

== ENCOUNTER → 2024-10-02 19:01 | Outpatient (BNV) | payer OTHER, SELFPAY | PROVIDERS: PCP Family Medicine; Visit Provider Radiology Diagnostic Radiology | DX: R06.00 Dyspnea, unspecified (principal) | CPT/HCPCS: 71046 ==

== ENCOUNTER 2024-11-06 10:52 | Outpatient (AMB) | payer OTHER, SELFPAY ==
--- NOTE | 2024-11-06 11:02 | MHC.OFFVIS ---
Vital Signs 11/06/24 11:03 Height 5 ft Weight 159 lb 13.362 oz BMI 31.2 BP 140/72 H Blood Pressure Location Rt brachial Position Sitting Pulse 88 Pulse Source Pulse Oximeter Pulse Oximetry (%) 97 Oxygen Delivery Method Room Air Intake Visit Reasons: Shortness of breath Allergies adhesive tape [ADHESIVE TAPE] Allergy (Intermediate, Verified 10/02/24 19:02) RASH-LOCALIZED latex Allergy (Verified 10/02/24 19:02) Rash HPI Comments Details: 01/21/2023 the patient is here for a pulmonary follow-up visit. Overall the patient has been doing well. Denies any respiratory complaints. She denies any shortness of breath or dyspnea or cough. The patient is not using any inhalers. We did review her recent pulmonary function studies demonstrating again a mild restrictive ventilatory defect consistent mild restrictive lung disease. Unchanged from last year. We did also review her chest x-ray that she had demonstrating sternotomy wires no significant parenchymal disease that we can appreciate. Clinically the patient is feeling well. No need to do additional imaging testing. Although if the patient develops any worsening respiratory symptoms or complaints will request additional imaging studies at that time. Otherwise the patient will return in a year's time with a chest x-ray. 03/26/2024 the patient is here for a pulmonary follow-up visit. Overall the patient has been doing well. He is having more allergy symptoms at this time though with a fall. Having cough. Nonproductive in nature moderate severity. Will make sure that she has her nasal therapy and also allergy therapy to be able to continue to treat her symptoms. The patient has has not had any recent chest imaging back in 10/08/2022 she had an x-ray without any acute disease. Although she did have a bad fall back in May where she had multiple imaging studies. She does mention that she did have a pelvis fracture that time. She is healing from that condition. Will continue with current respiratory therapy follow-up in a year's time. If the patient develops any worsening symptoms prior to that she would call for earlier assessment. 11/06/2024 the patient is here for a pulmonary follow-up visit. Recently she went to the ER because she was having shortness of breath. Sometimes she has a hard time even eating when she gets very short of breath. She may have some choking episodes as well. She went to the ER there she had an x-ray which I personally reviewed without any acute disease. He also have blood work was reassuring. The patient was told that she may need a nebulizer. Currently she does not have a rescue inhaler or any maintenance therapies. On exam she is also okay. Denies any significant allergy symptoms. Will go ahead and optimize respiratory therapy. I will have her try that 1st before get her nebulizer. If she feels like she needs additional therapies she will call and we will set her up with a nebulizer. The patient may need further GI evaluation. She may also benefit from a barium swallow. [facility] Medical History Diabetes Osteoarthritis Migraine Elevated cholesterol CAD (coronary artery disease) BART (obstructive sleep apnea) Chronic restrictive lung disease DILSHAD (stress urinary incontinence, female) Recurrent UTI (urinary tract infection) Surgical History H/O esophagogastroduodenoscopy H/O colonoscopy History of bladder suspension procedure S/P CABG x 3 History of tubal ligation History of hysterectomy Family History Father Alcohol abuse Cirrhosis Mother Cervical cancer Paternal Grandfather Stomach cancer Social History Household Members: Children Alcohol intake: never Patient Tobacco Use Status: Never used Tobacco Advance Directives Date on File: 05/14/23 Current occupational status: retired Current occupation: lt handed Review of Systems Const Denies fatigue, Denies fever(s), Denies night sweats, Denies poor appetite and Denies weight loss ENT Reports Normal hearing present, Denies dental pain, Denies hearing loss, Denies mouth pain, Denies throat swelling, Denies tongue swelling and Reports other (Dentition adequate) Card Reports no additional complaints and Denies dyspnea on exertion Resp Denies cough, Denies dyspnea on exertion and Denies wheezing GI Denies abdominal pain Musc Reports no additional complaints Skin/Breast Denies rash Neuro Reports Normal hearing present and Denies Abnormal speech present Endo Denies fatigue Aller/Immun Denies throat swelling, Denies tongue swelling and Denies wheezing Physical Exam Vital Signs: Last Vital Signs Pulse 88 11/06/24 11:03 BP 140/72 H 11/06/24 11:03 Pulse Ox 97 11/06/24 11:03 Oxygen Delivery Method Room Air 11/06/24 11:03 BMI result Body Mass Index 31.2 Const General: cooperative Orientation/consciousness: oriented to person, oriented to place and oriented to time HEENT Head: Yes normocephalic and Yes atraumatic Eyes General: appearance normal, both eyes and all related structures Pupils: Equal, round and reactive pupils present Neck Neck: Yes normal visual inspection Resp Effort & Inspection: normal respiratory effort and able to speak in complete sentences Auscultation: diminished lung sounds Cardio Rate: regular rate Rhythm: regular rhythm Heart sounds: Normal, physiologic split S2 sound present GI Palpation (GI): Soft to palpation Skin General skin exam: no rashes or lesions noted, turgor normal, skin not dry, no jaundice, No spider nevi and no striae Rashes: no rashes Nails: normal Neuro General: oriented to person, oriented to place and oriented to time Cranial nerves: Yes Equal, round and reactive pupils present and Yes Normal hearing present Speech: No Abnormal speech present Extrem General: Yes normal to inspection, No clubbing, No cyanosis and No edema Psych Appearance: grossly normal Assessment & Plan Assessment & Plan (1) Chronic restrictive lung disease: Code(s): J98.4 - Other disorders of lung Category: Medical (2) Dyspnea: Code(s): R06.00 - Dyspnea, unspecified Category: Medical Qualifiers: Dyspnea type: dyspnea on exertion Qualified Code(s): R06.09 - Other forms of dyspnea Plan Breo daily GILMAR as needed continue claritin continue Singulair Add Astelin nasal spray GILMAR as needed follow-up in 8-12 months Medications: New fluticasone furoate-vilanterol 200-25 mcg/dose (Breo Ellipta) 1 inh inhalation DAILY 60 ea 11RF 30 days fluticasone furoate-vilanterol 200-25 mcg/dose (Breo Ellipta) 1 inh inhalation DAILY 60 ea 11RF 30 days azelastine administer into each nostril 2 sprays intranasal BID 30 mL 6RF 30 days Coding Level of Care Code Est Pt Level 4 (09104) Diagnoses Chronic restrictive lung disease J98.4 Dyspnea on exertion R06.09 Dyspnea type: dyspnea on exertion Time Spent (min) 16
[2024-11-06 11:03] VITALS: BP 140/72; PULSE 88; O2SAT 97; BMI 31.2
--- OUTSIDE RECORDS SUMMARY | 2024-11-06 11:57 | XMS_ITS | Clinical Summary ---
Author Organization [employer] Address [address] [facility] [address] [place] [address] Care Team Providers Care Industrial Accountant Name Role Phone Kera Maria MD Primary Care Provider [phone] Allergies Active Allergy Reactions Criticality Noted Date [...] Strength 180 MG capsule 06/06/20 23 Active glucose blood (OneTouch Ultra) test stripIndications:T ype 2 diabetes mellitus with other specified complication, unspecified whether prison insulin use (CMS/[facility]) TEST BLOOD SUGAR 3 TIMES A DAY 100 strip 11 10/10/19 24 Active Lancets (OneTouch Delica Plus [id number]) miscIndications:Ty pe 2 diabetes mellitus with other specified complication, unspecified whether prison insulin use (CMS/[facility]) TEST BLOOD SUGAR 3 TIMES A DAY 100 each 11 10/10/19 24 Active montelukast (Singulair) 10 MG tablet TAKE 1 TABLET BY MOUTH AT BEDTIME 90 tablet 3 01/01/20 24 Active Bisacodyl EC 5 MG EC tablet TAKE 2 TABLETS BY MOUTH AT BEDTIME FOR 2 DAYS 10/22/19 24 Active Noy-Tussin DM 10-100 MG/5ML liquid TAKE 5ml BY MOUTH EVERY 4 HOURS NEEDED FOR COUGH FOR UP TO 10 DAYS 04/30/20 23 Active PEG 9172-DRt-OeMuo-NaC l-NaSulf (PEG-3350/Electrol ytes) 236 g reconstituted solution MIX WITH WATER AND DRINK 240 ML EVERY 10 MINUTES UNTIL FECAL EFFLUENT IS CLEAR DO NOT EXCEED 1/2 BOTTLE 10/22/19 24 Active furosemide (Lasix) 20 MG tablet Take 20 mg by mouth Once per day. 02/25/20 24 Active Alcohol Swabs (Alcohol Prep) 70 % padsIndications:Ty pe 2 diabetes mellitus with hyperglycemia (CMS/HCC) USE DIRECTED WITH INSULIN 100 each 11 03/04/20 24 Active celecoxib (CeleBREX) 200 MG capsule TAKE 1 CAPSULE BY MOUTH EVERY TWELVE HOURS NEEDED FOR PAIN WITH FOOD 40 capsule 1 05/25/20 24 Active Dulaglutide (Trulicity) 1.5 MG/0.5ML solution auto-injectorIndic ations:Type 2 diabetes mellitus with hyperglycemia, with long-term current use of insulin (CMS/[facility]) Inject 1.5 mg under the skin 1 [...] UNITS SUBCUTANEOUSLY EVERY EVENING DIRECTED 15 mL 08/04/19 25 Active metFORMIN, OSM, (Fortamet) 1000 MG 24 hr tablet Take 1 tablet (1,000 mg) by mouth with breakfast and with evening meal. Do not crush, chew, or split. 60 tablet 09/11/19 25 026 Active Continuous Glucose Cable Mechanic (FreeStyle La 2 [place]) deviceIndications: Type 2 diabetes mellitus with hyperglycemia, with long-term current use of insulin ([facility]) Scan sensor every 8 hours 1 each 09/11/19 25 Active Continuous Glucose Sensor (FreeStyle La 2 Sensor) miscIndications:Ty pe 2 diabetes mellitus with hyperglycemia, with long-term current use of insulin (CMS/HCC) Apply 1 sensor every 14 days 2 each 09/11/19 25 Active glucose blood (FreeStyle Precision Adeel Test) test strip Use to test blood sugar 3 times daily 100 each 09/11/19 25 026 Active UltiCare Short Pen [place] 31G X 8 MM miscIndications:Ty pe 2 diabetes mellitus with hyperglycemia (CMS/HCC) Use as instructed 100 each 09/17/19 25 Active Aspirin Low Dose 81 MG EC tablet TAKE 1 TABLET BY MOUTH EVERY MORNING 30 tablet 09/24/19 25 Active cholecalciferol (Vitamin D-3) 25 MCG tablet TAKE 1 TABLET BY MOUTH EVERY MORNING 30 tablet 09/24/19 25 Active Active Problems Problem Noted Date [...] (09/08/2024 10:24 AM EST): - following with [facility] - last US in November 2021 Assessment & Plan (05/29/2024 3:20 PM EST): - following with [facility] - last US in November 2021 Assessment & Plan (06/20/2023 5:47 AM EST): - following with [facility] - last US in November 2021 Restrictive airway disease 06/20/2023 Assessment & Plan (05/29/2024 3:18 PM EST): - evaluated by linen folder - last PFT in December 2022, no obstructive airway disease / RAD - breathing exercise Assessment & Plan (06/20/2023 6:01 AM EST): - evaluated by linen folder - last PFT in December 2022, no obstructive airway disease / RAD - breathing exercise Proteinuria 10/28/2020 Chronic interstitial cystitis 11/25/2017 Assessment & Plan (05/29/2024 3:22 PM EST): Seen by [facility] [place] on 02/08/22 for f/u recurrent UTI and IC. Pt currently on Elmiron and nitrofurantoin per note. 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 04/25/2015 06/12/2023 Insomnia 04/25/2015 06/12/2023 Overweight 04/25/2015 06/12/2023 Essential hypertension 04/25/2015 Assessment & Plan (09/08/2024 10:23 AM EST): -Goal BP < 140/90 per JNC-8 and < 130/80 per ACC/AHA guideline -Co-managed with grips and alliances consultant -Slightly elevated BP, possibly due to her [...] < 130/80 per ACC/AHA guideline -Co-managed with grips and alliances consultant -Slightly elevated BP, possibly due to her [...] < 130/80 per ACC/AHA guideline -Co-managed with grips and alliances consultant -Slightly elevated BP, possibly due to her [...] (09/11/2024 2:28 PM EST): - following with [facility], last seen in May 2023 - last UTI in Feb 2024, breakthrough (on nitrofurantoin prophylaxis). - urine culture in Feb 2024 grew Klebsiella. Treated with TMP/SMX. - relative contraindication to SGLT2i Assessment & Plan (05/24/2024 6:20 AM EST): - [facility] AM EST): Seen by [facility] [place] on 02/08/22 for f/u recurrent UTI and IC. Pt currently on Elmiron and nitrofurantoin. -Last UTI DECEMBER 2021. -Cont Elmiron and nitrofurantoin. 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/16/2005 06/12/2023 Resolved Problems Problem Noted Date Diagnosed Date Resolved Date Disorder of vein 06/26/2018 06/12/2023 06/20/2023 Encounters Date Type Department Care Team Description 10/19/2024 Orders Only [facility] [place] [address] Kera Maria MD Type 2 diabetes mellitus with hyperglycemia, with long-term current use of insulin ([facility]) (Primary Dx); Essential hypertension 10/19/2024 Telephone [facility] [place] [address] Kera Maria MD 10/16/2024 Orders Only [address] [address] Kera Maria MD Type 2 diabetes mellitus with hyperglycemia, with long-term current use of insulin ([facility]) (Primary Dx); Essential hypertension; Dyslipidemia 10/16/2024 Telephone [facility] [place] [address] Kera aMria MD 10/02/2024 Orders Only GENERIC EXTERNAL DATA DEPARTMENT Provider, Generic External Data 09/23/2024 Refill [facility] [place] [address] Kera Maria MD 09/17/2024 Refill [facility] [address] [place] [address] Kera Maria MD Type 2 diabetes mellitus with hyperglycemia ([facility]) 09/14/2024 Orders Only [facility] [address] [place] [address] Chey Rosado MD 09/14/2024 Telephone [facility] [place] [address] Kera Maria MD Prior Authorization 09/10/2024 Orders Only GENERIC EXTERNAL DATA DEPARTMENT Provider, Generic External Data 09/08/2024 10:30 AM EST Office Visit [facility] [place] [address] Kera Maria MD BART (obstructive sleep apnea) (Primary Dx); S/P CABG x 3; Peripheral venous insufficiency; Ischemic heart disease; Essential hypertension; Metabolic dysfunction-associated steatotic liver disease (MASLD); Mixed stress and urge urinary incontinence; Type 2 diabetes mellitus with hyperglycemia, with long-term current use of insulin ([facility]); Dyslipidemia; Osteopenia of lumbar spine; History of fracture of pelvis; Dietary counseling; Exercise counseling; Overweight; Tubular adenoma of colon; Recurrent urinary tract infection 09/08/2024 Travel 09/03/2024 Telephone [facility] [address] [place] [address] Joanne Jimenez MA chart prep 09/03/2024 Abstract [facility] [address] [place] [address] Joanne Jimenez MA from Last 3 Months Immunizations Name Administration [...] Care Team (Late st Contact Info) Description 11/12/2024 10:30 AM EDT Medication Management [facility] [address] [place] [address] Lev Smith, PharmD [address] [place] [address] 12/15/2024 10:30 AM EDT Office Visit [facility] [address] [place] [phone] Kera Maria MD [address] [facility] [place] [phone] Health Maintenance Due Date Last Done Comments [...] Procedure Name Priority Date/Time Associated Diagnosis Comments XR CHEST 2 VIEWS Routine 10/02/2024 8:00 PM EDT HIGH SENSITIVITY TROPONIN I Routine 10/02/2024 7:08 PM EDT B TYPE NATRIURETIC PEPTIDE (BNP) Routine 10/02/2024 7:08 PM EDT COMPREHENSIVE METABOLIC PANEL Routine 10/02/2024 7:08 PM EDT CBC WITH AUTO DIFFERENTIAL Routine 10/02/2024 7:08 PM EDT SARS COV2/INFLUENZA A/B AND RSV RNA QL NAAT Routine 10/02/2024 7:08 PM EDT HM COLONOSCOPY Routine 09/10/2024 1:05 PM EST HEMATOXYLIN AND EOSIN STAIN Routine 09/10/2024 10:14 AM EST GLUCOSE, WHOLE BLOOD Routine 09/10/2024 9:20 AM EST POCT GLYCOSYLATED HEMOGLOBIN (HGB A1C) Routine 09/08/2024 10:01 AM EST Type 2 diabetes mellitus with hyperglycemia, with long-term current use of insulin ([facility]) POCT GLUCOSE Routine 09/08/2024 10:00 AM EST Type 2 diabetes mellitus with hyperglycemia, with long-term current use of insulin (CMS/[facility]) HM DIABETES EYE EXAM Routine 01/06/2024 BI MAMMOGRAM SCREENING TOMOSYNTHESIS BILATERAL Routine 11/29/2023 10:25 AM EDT ALBUMIN, RANDOM URINE W/CREATININE Routine 06/20/2023 1:03 PM EST Type 2 diabetes mellitus without complication, with long-term current use of insulin (CMS/[facility]) LIPID PANEL WITH REFLEX TO DIRECT LDL Routine 06/20/2023 1:03 PM EST Type 2 diabetes mellitus without complication, with long-term current use of insulin (CMS/[facility]) Dyslipidemia from Last 3 Months or Most Recently Relevant to Health Maintenance Results * XR Chest 2 Views (10/02/2024 8:00 PM EDT) Anatomical Region Laterality Modality Chest Radiographic Collette ging 10/02/2024 8:00 PM EDT Narrative 10/02/2024 8:02 PM EDT ? [facility] ?[address] ?[place] [address] ?XRay Report ? Signed ? Patient: Sofía Penny ?MR#: ?? [id number] ? : 1950 ?Acct:[id number] ? Age/Sex: 74 / F ?ADM Date: 03/14/25 ? Loc: HO.ED ? Attending Dr: ? Ordering Physician: Anni Dias NP ?? Date of Service: 10/02/24 ?? Procedure(s): XR chest 2V ?? Accession Number(s): [id number] ? cc: Kera Maria MD; Anni Dias NP ? CLINICAL HISTORY: dyspnea ? 2 view chest x-ray ? Comparison: DX/SR - XR CHEST 2V - 10/19/22 13:51 EDT ? Findings: ?? No consolidation or effusion. ?? Normal size heart. ?? No acute fracture. ? IMPRESSION: ?? 1. No acute findings. ? This document has been electronically signed by: Gricelda Dove MD on ?? 10/02/2024 20:00:36 ? Dictated By: ?Gricelda Dove MD ? Signed By: ?<Electronically signed by Gricelda Dove MD in OV> ?10/02/242000 ? DD/ 99 ? TD/TT: 10/02/241999 ? Literacy Tutor: ? Procedure Note Jacquelinhannahter, Image - 10/02/2024 [place] [address] XRay Report Signed Patient: Kaylee Penny#: [id number] : 1950cct:[id number] Age/Sex: 74 / FADM Date: 10/02/24 Loc: HO.ED Attending Dr: Ordering Physician: Anni Dias NP Date of Service: 10/02/24 Procedure(s): XR chest 2V Accession Number(s): [id number] cc: Kera Maria MD; Anni Dias NP CLINICAL HISTORY: dyspnea 2 view chest x-ray Comparison: DX/SR - XR CHEST 2V - 10/19/22 13:51 EDT Findings: No consolidation or effusion. Normal size heart. No acute fracture. IMPRESSION: 1. No acute findings. This document has been electronically signed by: Gricelda Dove MD on 10/02/2024 20:00:36 Dictated By: Gricelda Dove MD Signed By: <Electronically signed by Gricelda Dove MD in OV> 10/02/242000 DD/ 99 TD/TT: 10/02/241999 Literacy Tutor: [facility] External Provider IMG XR PROCEDURES Edited Result - Final * High Sensitivity Troponin I (10/02/2024 7:08 PM EDT) Pathologist [facility] TROPONIN I HIGH SENSITIVITY <2.7 <3.5 - 17.0 ng/L [facility] Comment:The Contreras high sens itivity Troponin-I results should beused in conjunction with other diagnostic information suchas ECG, clinical observations and information, and patientsymptoms to aid in the diagnosis of NH. 10/02/2024 7:08 PM EDT 10/02/2024 7:15 PM EDT Generic External Data Provider LAB BLOOD ORDERAB LES Final Result Performing Organization Address [facility] Co de Phone Number [facility] [address] [place] [phone] * SARS-CoV-2 RNA, Influenza A/B, and RSV RNA, Ql NAAT (10/02/2024 7:08 PM EDT) [facility] Influenza A PCR NEGATIVE Negative [facility] Influenza B PCR NEGATIVE Negative [facility] Resp Syncy Virus RNA Qual PCR NEGATIVE Negative [facility] SARS COV2 PCR NEGATIVE Negative [facility] Comment:All test results mus t be correlated with clinical findings.Negative results do not preclude SARS-CoV2, influenza Avirus, influenza B virus and/or RSV infectionand should not be used as the sole basis for treatment orother patient management decisions. Negative results must becombined with clinical observations, patient history, andepidemiological information.This test has not been evaluated for monitoring treatment ofinfection.This test has been authorized by the FDA under an EmergencyUse Authorization (EUA) for use by authorized laboratories.Testing performed on the [employer] GeneXpert utilizingreal-time RT-PCR.All SARS CoV2 and positive influenza A/B results arereported to [facility]. 10/02/2024 7:08 PM EDT 10/02/2024 7:15 PM EDT Generic External Data Provider LAB MICROBIOLOGY - GENERAL ORDERABLES Final Result Performing Organization Address City/[facility]/ZIP Co de Phone Number [facility] [address] [place] [address] [phone] * (ABNORMAL) CBC auto differential (10/02/2024 7:08 PM EDT) White Blood Count 6.8 4.8 - 10.8 X10*3/uL [facility] Red Blood Count 4.33 4.20 - 5.50 X10*6/uL [facility] Hemoglobin 12.0 12.0 - 16.0 g/dl [facility] Hematocrit 35.5(L) 37.0 - 47.0 % [facility] Mean Corpuscular Volume 82.0 80.0 - 98.0 fL [facility] Mean Corpuscular Hemoglobin 27.7 27.0 - 33.0 pg [facility] Mean Corpuscular HGB Conc 33.8 31.0 - 35.0 g/dl [facility] Red Cell Distribution Width 13.6 11.0 - 16.0 % [facility] Platelet Count 182 160 - 400 X10*3/uL [facility] Mean Platelet Volume 9.4 9.4 - 12.3 fL [facility] Neutrophils Percent Auto 52.7 45 - 73 % [facility] Imm Gran Pct Auto 0.1 0.0 - 0.4 % [facility] Lymphocytes Percent Auto 36.1 20 - 40 % [facility] Monocytes Percent Auto 7.8 2 - 11 % [facility] Eosinophils Percent Auto 2.7 0 - 4 % [facility] Basophils Percent Auto 0.6 0 - 2 % [facility] NRBC Pct Auto 0.0 0.0 - 0.2 /100WBC [facility] Neutrophils Absolute Auto 3.6 2.0 - 8.3 x10*3/uL [facility] Imm Gran Abs Auto 0.01 0.00 - 0.03 X10*3/uL [facility] Lymphocytes Absolute Auto 2.5 1.2 - 4.9 X10*3/uL [facility] Monocytes Absolute Auto 0.5 0.1 - 1.2 X10*3/uL [facility] Eosinophils Absolute Auto 0.2 0.0 - 0.4 X10*3/uL [facility] Basophils Absolute Auto 0.0 0.0 - 0.2 X10*3/uL [facility] NRBC Abs Auto 0.000 0.0 - 0.012 X10*3/uL [facility] 10/02/2024 7:08 PM EDT 10/02/2024 7:15 PM EDT Generic External Data Provider LAB BLOOD ORDERAB LES Final Result Performing Organization Address [facility]/ZIP Co de Phone Number [facility] [address] [place] [phone] * B Type Natriuretic Peptide (BNP) (10/02/2024 7:08 PM EDT) [facility] B Type Natriuretic Peptide 19 <100 pg/mL [facility] 10/02/2024 7:08 PM EDT 10/02/2024 7:15 PM EDT Generic External Data Provider LAB BLOOD ORDERAB LES Final Result Performing Organization Address [facility] Co de Phone Number [facility] [address] [place] [phone] * (ABNORMAL) Comprehensive Metabolic Panel (10/02/2024 7:08 PM EDT) [facility] Sodium 137 135 - 145 mmol/L [facility] Potassium 3.9 3.3 - 5.1 mmol/L [facility] Chloride 100 96 - 108 mmol/L [facility] Carbon Dioxide 27 22 - 29 mmol/L [facility] Anion Gap 14 12 - 20 [facility] Urea Nitrogen (BUN) 16 9 - 16 mg/dL [facility] Creatinine, Serum 0.80 0.5 - 1.4 mg/dL [facility] Creatinine Clr Calc Pharmacy 55.5 [facility] Comment:Provided height and weight: 152.4 cm,72.2 kg.eGFR (calculated from the MDRD study equation) and eCrCl(calculated from the Cockcroft-Gault equation) are based ondifferent parameters and may not yield comparable results.If eCrCl result is absurd, please check patient'sheight/weight. Estimated Glomerular Filt Rate >60 [facility] Comment:Chronic Kidney Disea se: Estimated GFR < 60 mL/min/1.59s6Oolknu Kidney Disease: Estimated GFR < 15 mL/min/1.73m2 Glucose 228(H) 60 - 115 mg/dL [facility] Calcium 10.1 8.4 - 10.2 mg/dL [facility] Bilirubin, Total 0.4 0.0 - 1.0 mg/dL [facility] Aspartate Amino Transferase 31 5 - 31 U/L [facility] Alanine Aminotransferase 34(H) 0 - 31 U/L [facility] Total Protein 8.3(H) 6.5 - 8.0 g/dL [facility] Albumin Level 4.3 3.5 - 5.0 g/dL [facility] Alkaline Phosphatase 100 39 - 117 U/L [facility] 10/02/2024 7:08 PM EDT 10/02/2024 7:15 PM EDT us Generic External Data Provider LAB BLOOD ORDERAB LES Final Result [facility] [address] [place] [phone] * Hm Colonoscopy (09/10/2024 1:05 PM EST) Historical Provider MD HEALTH MAINTENANCE Final Result * Hematoxylin and Eosin Stain (09/10/2024 10:14 AM EST) 09/10/2024 10:1 4 AM EST 09/10/2024 10:42 AM EST Narrative [facility] - 09/14/2024 9:11 AM EST ----- ------- Name: Sofía Penny ? Age/Sex: 74/F ? : 1950 Unit#: [id number] ?? Attend Dr: Mayra Montoya MD ?Re09/10/24 ?Status: DEP SDC ? Location: HO.SSS ?Disch: ? ----- ------- SPEC : [id number] ?RECD: 09/10/24-1041 ? STATUS: ??SOUT ? REQ NUM: [id number] ? LEENA: 09/10/24-1014 ? SUBM DR: Mayra Montoya MD ? ENTERED: ??09/10/24-1055 ?SP TYPE: Surgical ? OTHR DR: Kera [...] Copies To: ?? Mayra Montoya MD ?? [facility] ?? [address] ?? [place] [address] ?? [phone] ?? Kera Maria MD ?? [facility] ?? [address] [facility] ?? [place] [address] ?? [phone] ----- ------- Signed (signature on file) Jorge Cooper MD 09/14/24 0911 ? ----- ------- ? END OF REPORT ? Generic External Data Provider LAB BLOOD ORDERAB LES Final Result Performing Organization Address [facility] Co de Phone Number [facility] [address] [place] [phone] * (ABNORMAL) Glucose, Whole Blood (09/10/2024 9:20 AM EST) Glucose, Whole Blood 231(H) 60 - 115 mg/dL [facility] Comment:METER #: [id number] 09/10/2024 9:20 AM EST 09/10/2024 9:28 AM EST Generic External Data Provider LAB BLOOD ORDERAB LES Final Result Performing Organization Address [facility] Co de Phone Number [facility] [address] [place] [phone] * (ABNORMAL) POCT glycosylated hemoglobin (Hgb [...] us Historical Provider HEALTH MAINTENANCE Final Result * BI Mammogram Screening Tomosynthesis Bilateral (11/29/2023 10:25 AM EDT) Anatomical Region Laterality Modality Breast Bilateral Mammography 11/29/2023 10:2 5 AM EDT Narrative 12/27/2023 9:22 AM EDT ? [facility] ? [address] ?[place] [address] ? Mammography Report ? Signed ? Patient: Sofía Penny ?MR#: ?? [id number] ? : 1950 ?Acct:[id number] ? Age/Sex: 73 / F ?ADM Date: 05// ? Loc: HO.MAMMO ? Attending Dr: Kera Maria MD ? Ordering Physician: Kera Maria MD ?Results: 1Negative ? Date of Service: 05//24 ?Follow Up: 1 Year From Orig ?? inal Mammogram ? Procedure(s): MM tomosynthesis screening BI ?? Accession Number(s): [id number] ? cc: Kera Maria MD ? EXAMINATION: [...] 0918 ? DD/ 1025 ? TD/TT: ? Literacy Tutor: ? Procedure Note Dontonyainterpreter, Image - 12/27/2023 [facility] [address] [place] [address] Dr. [place], [place] [address] Mammography Report Signed Patient: Kaylee Penny#: [id number] : 1Acct:[id number] Age/Sex: 73 / FADM Date: 11/29/23 Loc: NICKIE Attending Dr: Kera Maria MD Ordering Physician: Kera Mariaesults: 1Negative Date of Service: 11/29/23Follow Up: 1 Year From Orig ina Mammogram Procedure(s): MM tomosynthesis screening BI Accession Number(s): [id number] cc: Kera Maria MD EXAMINATION: MM SCREENING [...] in OV> 12/27/23 0918 DD/ 1025 TD/TT: Literacy Tutor: Kera Maria MD IM BI PROCEDURES Edited Result - Final * (ABNORMAL) Lipid Panel with Reflex to Direct LDL (06/20/2023 1:03 PM EST) Triglycerides 190(H) <150 mg/dL [facility] Comment:Desirable Triglyceri de: less than 150 mg/dLBorderline High Triglyceride 150-199 mg/dLHigh Triglyceride: 200-499 mg/dLVery High Triglyceride: greater than or equal to 5OO mg/dL Cholesterol 120 <200 mg/dL [facility] Comment:Desirable Cholestero l: less than 200 mg/dLBorderline High Cholesterol: 200-239 mg/dLHigh Cholesterol: greater than 239 mg/dL LDL Cholesterol Calculated 33 <100 mg/dL [facility] Comment:Desirable LDL: less than 100 mg/dLNear Optimal/Above Optimal LDL: 110- 129 mg/dLBorderline High LDL: 130-159 mg/dLHigh LDL: 160-189 mg/dLVery High LDL: greater than or equal to 190 mg/dL HDL Cholesterol 49 >40 mg/dL [facility] Comment:Desirable HDL: great er than 40 mg/dL Note: This HDL assay may give artificially low results in patients with liver disease. Blood 06/20/2023 1:03 PM EST 06/20/2023 3:54 PM EST us Kera Maria MD LAB BLOOD ORDERABLES Final Resul t Performing Organization Address [facility] Co de Phone Number [facility] [address] [place] [phone] * (ABNORMAL) Albumin, Random Urine W/Creatinine (06/20/2023 1:03 PM EST) Creatinine, Urine 187.00 mg/dL [facility] Microalbumin Urine 170.0 mg/L [facility] Microalbum Creatinine Ratio Ur 90.9(H) <30 ug/mg cr [facility] Comment:Albumin/Creatinine R atio Reference Ranges: Normal: < 30 ug/mg creatinine Microalbuminuria: 30 - 300 ug/mg creatinineClinical Albuminuria: > 300 ug/mg creatinine Urine 06/20/2023 1:03 PM EST 06/20/2023 4:17 PM EST us Kera Maria MD LAB URINE ORDERABLES Final Resul t Performing Organization Address [facility]/ZIP Co de Phone Number [facility] [address] [place] [phone] from Last 3 Months or Most Recently Relevant to Health Maintenance Insurance [facility] ST[facility]ARD [facility] Care Teams Industrial Accountant Relationship Specialty Start Date End Date Krea Maria MD [address] [place] [address] PCP - General Family Medicine 07/22/18
--- OUTSIDE RECORDS SUMMARY | 2024-11-06 11:57 | XMS_ITS | Encounter Summary ---
Author Organization [facility] [facility] Address [address] [facility] 7t [place] [address] Care Team Providers Care Automotive Welder Name Role Phone Kera Maria MD Primary Care Provider [phone] Encounter Details Date Type Department Care Team (Late st Contact Info) Description 01/11/2023 Orders Only [facility] [address] [place] [address] [phone] Juhi Onofre LPN Social History Tobacco Use [...] Description 11/12/2024 10:30 AM EDT Medication Management [facility] [address] [place] [address] 32234 Lev Smith, PharmD [address] [place] [address] 23[address] 12/15/2024 10:30 AM EDT Office Visit [facility] [address] [place] [address] Kera Maria MD [address] [place] [address] 50671 documented as of this encounter Visit Diagnoses Not on filedocumented in this encounter Care Teams Automotive Welder Relationship Specialty Start Date End Date Kera Maria MD [address] [place] [address] 12573 PCP - General Family Medicine 07/22/18 documented as of this encounter
--- OUTSIDE RECORDS SUMMARY | 2024-11-06 11:57 | XMS_ITS | Encounter Summary ---
Author Organization [employer] Address [address] [facility] 7t [place] [address] Care Team Providers Care Wafer Slicer Name Role Phone Kera Maria MD Primary Care Provider [phone] Reason for Referral * Consultation (Urgent) - Authorized Specialty Diagnoses / Procedures Referred By Contac t Referred To Contact Pharmacy Diagnoses Type 2 diabetes mellitus with hyperglycemia, with long-term current use of insulin (CMS/HCC) Essential hypertension Kera Maria MD [address] [place] [address] Phone: tel: fax: Referral ID Status Reason Start Date Expiration Date Visits Requested Visits Authorized [id number] Authorized Consult and Treat 10/19/2024 10/19/2025 6 6 Encounter Details Date Type Department Care Team (Late st Contact Info) Description 10/19/2024 Orders Only [facility] [address] [place] [address] [phone] Kera Maria MD [address] [place] [address] [phone] Type 2 diabetes mellitus with hyperglycemia, with long-term current use of insulin (CMS/HCC) (Primary Dx); Essential hypertension Social History Tobacco Use Types Packs/Day Years [...] Description 11/12/2024 10:30 AM EDT Medication Management [facility] [address] [place] [address] [phone] Lev Smith PharmD [address] [place] [address] 80547 12/15/2024 10:30 AM EDT Office Visit [facility] [address] [place] [address] 08394 Kera Maria MD [address] [place] [address] 49555 Scheduled Referrals Name Type Priority Associated Diagnoses Orde r Schedule Referral to Pharmacy CDTM Outpatient Referral Urgent Type 2 diabetes mellitus with hyperglycemia, with long-term current use of insulin ([facility]) Essential hypertension Ordered: 10/19/2024 documented as of this encounter Visit Diagnoses Diagnosis Type 2 diabetes mellitus with hyperglycemia, with long-term current use of insulin ([facility])- Primary Essential hypertension Unspecified essential hypertension documented in this encounter Care Teams Wafer Slicer Relationship Specialty Start Date End Date Kera Maria MD [address] [place] [address] 50064 PCP - General Family Medicine 07/22/18 documented as of this encounter
--- OUTSIDE RECORDS SUMMARY | 2024-11-06 11:57 | XMS_ITS | Clinical Summary ---
Demographics Address [address] [facility] [address] [place] [address] Mobile Phone Home Phone Preferred Language es Marital Status Unknown Methodist Affiliation Unknown Race Unknown Ethnic Group Unknown Author Organization [facility] Address [address] [place] [address] Phone Care Team Providers Care Servicer Travel Trailers Name Role Phone Kera Maria MD Primary Care Provider [phone] Allergies No known active allergies Medications aspirin [...] 02/25/2015, 01/21/2014 Diabetes: Hemoglobin A1C 09/01/2024 05/23/2024, 07/02/2023 Diabetes: Ophthalmology Exam 09/01/2024 Diabetes: Pedal Pulse Checked 09/01/2024 Diabetes: Sensory Foot Exam 09/01/2024 Diabetes: Visual Foot Exam 09/01/2024 Pneumococcal Vaccine: 50+ Years Completed 05/27/2017, 05/21/2016, 04/19/2013, Additional history exists Pneumococcal Vaccine: Peds ( 0 to 5 Years) and At-Risk Patients (6 to 49 Years) Discontinued 05/27/2017, 05/21/2016, 04/19/2013, Additional history exists Influenza Vaccine Completed 05/25/2024, , 08/03/2020, Additional history exists Insurance [employer] ([id number]) [employer] ([id number]) Care Teams Servicer Travel Trailers Relationship Specialty Start Date End Date Kera Maria MD PCP - General 08/01/20
--- OUTSIDE RECORDS SUMMARY | 2024-11-06 11:57 | XMS_ITS | Encounter Summary ---
Author Organization [employer] [facility] Address [address] [facility] 7t [place] [address] Care Team Providers Care Application Support Lead Name Role Phone Kera Maria MD Primary Care Provider [phone] Encounter Details Date Type Department Care Team (Late st Contact Info) Description 08/09/2022 Abstract [facility] [address] [place] [address] 8[address] Kera Maria MD [address] [place] [address] 32758 Social History Tobacco Use Types Packs/Day Years [...] Description 11/12/2024 10:30 AM EDT Medication Management [facility] [address] [place] [address] 535[address] Lev Smith, PharmD [address] [place], [place] [phone] 12/15/2024 10:30 AM EDT Office Visit [facility] [address] [place] [address] 89[address] Kera Maria MD [address] [place], [place] [phone] documented as of this encounter Visit Diagnoses Not on filedocumented in this encounter Care Teams Application Support Lead Relationship Specialty Start Date End Date Kera Maria MD [address] [place] [address] PCP - General Family Medicine 07/22/18 documented as of this encounter
--- OUTSIDE RECORDS SUMMARY | 2024-11-06 11:57 | XMS_ITS | Encounter Summary ---
Author Organization [employer] [facility] Address [address] [facility] 7t [place] [address] Care Team Providers Care Technical System Analyst Name Role Phone Kera Maria MD Primary Care Provider [phone] Reason for Referral * Imaging (Routine) - Closed Specialty Diagnoses / Procedures Referred By Contac t Referred To Contact Radiology Diagnoses Closed fracture of single pubic ramus of pelvis, right, initial encounter (CMS/HCC) Postmenopause Osteoporosis screening declined Procedures BD DEXA Axial Kera Maria MD [address] [place] [address] Phone: tel: fax: [address] Phone: tel: fax: Referral ID Status Reason Start Date Expiration Date Visits Re quested Visits Authorized [id number] Closed 08/26/2023 08/25/2024 1 1 Encounter Details Date Type Department Care Team (Late st Contact Info) Description 08/26/2023 Orders Only [facility] [address] [place] [address] [phone] Kera Maria MD [address] [place], [place] [phone] Closed fracture of single pubic ramus of [...] 10:30 AM EDT Medication Management [facility] [address] [place] [address] 11417 Lev Smith, PharmD [address] [place] [address] 58[address] 12/15/2024 10:30 AM EDT Office Visit [facility] [address] [place] [address] [phone] Kera Maria MD [address] [place] [address] 74708 documented as of this encounter Procedures Procedure Name Priority Date/Time Associated Diagnosis Comments BD DEXA AXIAL Routine 09/13/2023 9:20 AM EST Closed fracture of single pubic ramus of pelvis, right, initial encounter (CMS/HCC) Postmenopause Osteoporosis screening declined documented in this encounter Results * BD DEXA Axial (09/13/2023 9:20 AM EST) Anatomical Region Laterality Modality Body Radiographic Collette ging 09/13/2023 9:20 AM EST Narrative 09/13/2023 5:44 PM EST ? [facility] ? [address] ?[place] [address] ? Mammography Report ? Signed ? Patient: Sofía Penny ?MR#: ?? [id number] ? : 1950 ?Acct:[id number] ? Age/Sex: 73 / F ?ADM Date: 09/13/23 ? Loc: HO.MAMMO ? Attending Dr: Kera Maria MD ? Ordering Physician: Kera Maria MD ?Results: ? Date of Service: 09/13/23 ?Follow Up: ? Procedure(s): XR DEXA axial skeleton ?? Accession Number(s): [id number] ? cc: Kera Maria MD ? EXAMINATION: ?? BONE DENSITOMETRY ? CLINICAL INDICATION: ?? Postmenopausal. ? COMPARISON: ?? This is the patient's baseline examination. ? TECHNIQUE: Using a mValent DXA System (software version: ?? 13.1) manufactured by [employer], dual-energy x-ray absorptiometry ?? was performed of [...] ?09/13/231739 ? DD/ 0920 ? TD/TT: ? Hand Surgeon: DOROTHEA ? Procedure Note Donotuseinterpreter, Image - 09/13/2023 [facility] [address] [place] [address] Mammography Report Signed Patient: Kaylee Penny#: [id number] : 1950cct:[id number] Age/Sex: 73 / FADM Date: 09/13/23 Loc: NICKIE Attending Dr: Kera Maria MD Ordering Physician: Kera Mariaesults: Date of Service: 09/13/23Follow Up: Procedure(s): XR DEXA axial skeleton Accession Number(s): [id number] cc: Kera Maria MD EXAMINATION: BONE DENSITOMETRY CLINICAL INDICATION: Postmenopausal. COMPARISON: This is the patient's baseline examination. TECHNIQUE: Using a mValent DXA System (software version: 13.1) manufactured by [employer], dual-energy x-ray absorptiometry was performed of the [...] by Al Bland MD in OV> 09/13/23 8118 DD/ 0462 TD/TT: Hand Surgeon: SK Kera Maria MD IMG DXA PROCEDURES Final Result documented in this encounter Visit Diagnoses Diagnosis Closed fracture of single pubic ramus of pelvis, right, initial encounter (CMS/[facility])- Primary Postmenopause Asymptomatic postmenopausal status (age-related) (natural) Osteoporosis screening declined documented in this encounter Care Teams Technical System Analyst Relationship Specialty Start Date End Date Kera Maria MD [address] [place] [address] 13399 PCP - General Family Medicine 07/22/18 documented as of this encounter
--- OUTSIDE RECORDS SUMMARY | 2024-11-06 11:57 | XMS_ITS | Encounter Summary ---
Author Organization [employer] Address [address] [facility] 7t [place] [address] Care Team Providers Care Rn Pediatric Name Role Phone Kera Maria MD Primary Care Provider [phone] Encounter Details Date Type Department Care Team (Late st Contact Info) Description 03/11/2023 Orders Only [facility]S [address] [place], [place] [phone] Elena Unger LPN Social History Tobacco Use [...] Description 11/12/2024 10:30 AM EDT Medication Management [facility] [address] [place] [address] 71821 Lev Smith, PharmD [address] [place] [address] 93[address] 12/15/2024 10:30 AM EDT Office Visit [facility] [address] [place] [address] 38060 Kera Maria MD [address] [place] [address] documented as of this encounter Visit Diagnoses Not on filedocumented in this encounter Care Teams Rn Pediatric Relationship Specialty Start Date End Date Kera Maria MD [address] [place] [address] PCP - General Family Medicine 07/22/18 documented as of this encounter
--- OUTSIDE RECORDS SUMMARY | 2024-11-06 11:57 | XMS_ITS | Encounter Summary ---
Author Organization [employer] Address [address] [facility] 7t [place] [address] Care Team Providers Care Care Program Director Name Role Phone Kera Maria MD Primary Care Provider Encounter Details Date Type Department Care Team (Late st Contact Info) Description 05/22/2023 Orders Only [facility] MED & PEDS [address] [place], [place] [phone] Juhi Onofre LPN Social History Tobacco Use [...] Description 11/12/2024 10:30 AM EDT Medication Management [address] [address] Lev Smith, PharmD [address] [place] [address] 9[address] 12/15/2024 10:30 AM EDT Office Visit [address] [address] Kera Maria MD [address] [place] [address] [phone] documented as of this encounter Visit Diagnoses Not on filedocumented in this encounter Care Teams Care Program Director Relationship Specialty Start Date End Date Kera Maria MD [address] [place] [address] PCP - General Family Medicine 07/22/18 documented as of this encounter
--- OUTSIDE RECORDS SUMMARY | 2024-11-06 11:57 | XMS_ITS | Encounter Summary ---
Author Organization [employer] Address [address] [facility] [address] 7t [place] [address] Care Team Providers Care Antique Furniture Restorer Name Role Phone Kera Maria MD Primary Care Provider [phone] Encounter Details Date Type Department Care Team (Late st Contact Info) Description 09/14/2024 Orders Only [facility] PEDS [address] [place], [place] [phone] Provider, MD Chey Social History Tobacco Use [...] Description 11/12/2024 10:30 AM EDT Medication Management [facility] [address] [place] [address] Lev Smith, PharmD [address] [place] [address] 12/15/2024 10:30 AM EDT Office Visit [facility] [address] [place] [address] [phone] Kera Maria MD [address] [place] [address] [phone] documented as of this encounter Procedures Procedure Name Priority Date/Time Associated Diagnosis Comments HM COLONOSCOPY Routine 09/10/2024 1:05 PM EST documented in this encounter Results * Hm Colonoscopy (09/10/2024 1:05 PM EST) us Historical Provider HEALTH MAINTENANCE Final Result documented in this encounter Visit Diagnoses Not on filedocumented in this encounter Care Teams Antique Furniture Restorer Relationship Specialty Start Date End Date Kera Maria MD [address] [place] [address] [phone] PCP - General Family Medicine 07/22/18 documented as of this encounter
--- OUTSIDE RECORDS SUMMARY | 2024-11-06 11:57 | XMS_ITS | Encounter Summary ---
Author Organization [employer] Address [address] [facility] 7t [place] [address] Care Team Providers Care Dock Supervisor Name Role Phone Kera Maria MD Primary Care Provider [phone] Encounter Details Date Type Department Care Team (Late st Contact Info) Description 04/09/2023 Orders Only [facility]S [address] [place], [place] [phone] Juhi Onofre LPN Social History Tobacco Use [...] Description 11/12/2024 10:30 AM EDT Medication Management [facility] MEDICINE [address] [place] [address] Lev Smith, PharmD [address] [place] [address] 9[address] 12/15/2024 10:30 AM EDT Office Visit [facility] [address] [place] [address] 70[address] Kera Maria MD [address] [place] [address] documented as of this encounter Visit Diagnoses Not on filedocumented in this encounter Care Teams Dock Supervisor Relationship Specialty Start Date End Date Kera Maria MD [address] [place] [address] PCP - General Family Medicine 07/22/18 documented as of this encounter
--- OUTSIDE RECORDS SUMMARY | 2024-11-06 11:57 | XMS_ITS | Encounter Summary ---
Author Organization [employer] Address [address] [facility] [address] 7t [place] [address] Care Team Providers Care Campground Attendant Name Role Phone Kera Maria MD Primary Care Provider [phone] Reason for Visit * Reason Comments Med Refill Encounter Details Date Type Department Care Team ([facility] st Contact Info) Description 07/04/2023 Refill [facility] PEDS [address] [place], [place] [phone] Kera Maria MD [address] [place], [place] [phone] Social History Tobacco Use Types Packs/Day Years [...] Description 11/12/2024 10:30 AM EDT Medication Management [facility] [address] [place] [address] 14[address] Lev Smith, PharmD [address] [place] [address] 0[address] 12/15/2024 10:30 AM EDT Office Visit [facility] [address] [place] [address] 74935 Kera Maria MD [address] [place] [address] 614[address] documented as of this encounter Visit Diagnoses Not on filedocumented in this encounter Care Teams Campground Attendant Relationship Specialty Start Date End Date Kera Maria MD [address] [place] [address] [phone] PCP - General Family Medicine 07/22/18 documented as of this encounter
--- OUTSIDE RECORDS SUMMARY | 2024-11-06 11:57 | XMS_ITS | Encounter Summary ---
Author Organization [facility] Address [address] [facility] 7t [place] [address] Care Team Providers Care Certified Corporate Travel Executive Name Role Phone Kera Maria MD Primary Care Provider [phone] Encounter Details Date Type Department Care Team (Late st Contact Info) Description 08/09/2022 Abstract [facility] MEDICINE [address] [place] [address] Kera Maria MD [address] [place] [address] Social History Tobacco Use Types Packs/Day Years [...] 10:30 AM EDT Medication Management [facility]INE [address] [place] [address] 7[address] Lev Smith, PharmD [address] [place], [place] [phone] 12/15/2024 10:30 AM EDT Office Visit [facility]INE [address] [place] [address] 0[address] Kera Maria MD [address] [place], [place] [phone] documented as of this encounter Procedures Procedure Name Priority Date/Time Associated Diagnosis Comments MAMMOGRAPHY Routine 08/06/2022 documented in this encounter Results * Mammography (08/06/2022) Mammogram perform Anatomical Region Laterality Modality Other Historical Provider HEALTH MAINTENANCE Final Result documented in this encounter Visit Diagnoses Not on filedocumented in this encounter Care Teams Certified Corporate Travel Executive Relationship Specialty Start Date End Date Kera Maria MD [address] [place] [address] PCP - General Family Medicine 07/22/18 documented as of this encounter
--- OUTSIDE RECORDS SUMMARY | 2024-11-06 11:57 | XMS_ITS | Encounter Summary ---
Author Organization [employer] Address [address] [facility] 7t [place] [address] Care Team Providers Care Sampling Theory Teacher Name Role Phone Kera Maria MD Primary Care Provider [phone] Encounter Details Date Type Department Care Team (Late st Contact Info) Description 10/15/2022 Orders Only [facility] MED & PEDS [address] [place], [place] [phone] Elena Unger LPN Social History Tobacco Use [...] Description 11/12/2024 10:30 AM EDT Medication Management [facility] MEDICINE [address] [place] [address] Lev Smith, PharmD [address] [place] [address] 599[address] 12/15/2024 10:30 AM EDT Office Visit [facility] MED[facility]INE [address] [place] [address] 25[address] Kera Maria MD [address] [place] [address] documented as of this encounter Visit Diagnoses Not on filedocumented in this encounter Care Teams Sampling Theory Teacher Relationship Specialty Start Date End Date Kera Maria MD [address] [place] [address] PCP - General Family Medicine 07/22/18 documented as of this encounter
--- OUTSIDE RECORDS SUMMARY | 2024-11-06 11:57 | XMS_ITS | Encounter Summary ---
Author Organization [employer] Address [address] [facility] 7t [place] [address] Care Team Providers Care Hog Tender Name Role Phone Kera Maria MD Primary Care Provider [phone] Reason for Visit * Reason Onset Date Comments Appointment Request 05/10/2023 Encounter Details Date Type Department Care Team (Late st Contact Info) Description 05/10/2023 Telephone [facility] MED[facility]INE [address] [place] [address] [phone] Kera Maria MD [address] [place] [address] Appointment Request Social History Tobacco Use Types [...] appt with PCP, any question contact pt [phone]. documented in this encounter Plan of Treatment Upcoming Encounters Date Type Department Care Team (Late st Contact Info) Description 11/12/2024 10:30 AM EDT Medication Management [facility] [address] [place] [address] Lev Smith, HermilaD [address] [place] [address] 12/15/2024 10:30 AM EDT Office Visit [facility] [address] [place] [address] Kera Maria MD [address] [place], [place] [phone] documented as of this encounter Visit Diagnoses Not on filedocumented in this encounter Care Teams Hog Tender Relationship Specialty Start Date End Date Kera Maria MD [address] [place] [address] [phone] PCP - General Family Medicine 07/22/18 documented as of this encounter
--- OUTSIDE RECORDS SUMMARY | 2024-11-06 11:57 | XMS_ITS | Encounter Summary ---
Author Organization [employer] Address [address] [facility] 7t [place] [address] Care Team Providers Care Sole Skiver Name Role Phone Kera Maria MD Primary Care Provider [phone] Reason for Visit * Reason Onset Date Comments Results 06/26/2023 Encounter Details Date Type Department Care Team ([facility] Contact Info) Description 06/26/2023 Telephone [facility] [address] [place], [place] [phone] Kera Maria MD [address] [place], [place] [phone] Results Social History Tobacco Use Types Packs/Day [...] Miscellaneous Notes * Telephone Encounter - Amy Tony - 06/26/2023 11:53 AM EST Tc from pt requesting results of xray to knee. Please contact pt at [phone] (heating and ventilating drafter needed) documented in this encounter Plan of Treatment Upcoming Encounters Date Type Department Care Team (Late st Contact Info) Description 11/12/2024 10:30 AM EDT Medication Management [facility] [address] [place] [address] 516[address] Lev Smith, PharmD [address] [place] [address] 340[address] 12/15/2024 10:30 AM EDT Office Visit [facility] [address] [place] [address] 9[address] Kera Maria MD [address] [place] [address] documented as of this encounter Visit Diagnoses Not on filedocumented in this encounter Care Teams Sole Skiver Relationship Specialty Start Date End Date Kera Maria MD [address] [place] [address] 92220 PCP - General Family Medicine 07/22/18 documented as of this encounter
--- OUTSIDE RECORDS SUMMARY | 2024-11-06 11:57 | XMS_ITS | Encounter Summary ---
Author Organization [employer] Address [address] [facility] 7t [place] [address] Care Team Providers Care Director Of Hotel Operations Name Role Phone Kera Maria MD Primary Care Provider [phone] Encounter Details Date Type Department Care Team (Late Contact Info) Description 05/01/2023 Orders Only [facility] MED [facility] PEDS [address], [place] [phone] Teresa Sotomayor MD [address] [place] [address] Social History Tobacco Use Types Packs/Day Years [...] Encounters Date Type Department Care Team (Late Contact Info) Description 11/12/2024 10:30 AM EDT Medication Management [facility] MEDICINE [address] [place] [phone] Lev Smith, PharmD [address] [place] [address] [phone] 12/15/2024 10:30 AM EDT Office Visit [facility] [address] [place] [address] [phone] Kera Maria MD [address] [place] [address] [phone] documented as of this encounter Procedures Procedure [...] EDT Narrative 05/13/2023 7:18 PM EDT ? [facility] ?[address] ?[place] [address] ? CT Scan Report ? Signed ? Patient: Sofía Penny ?MR#: ?? [id number] ? : 1950 ?Acct:[id number] ? Age/Sex: 72 / F ?ADM Date: 05/13/23 ? Loc: HO.ED ? Attending Dr: ? Ordering Physician: Tammi Andrew ?? Date of Service: 05/13/23 ?? Procedure(s): CT cervical spine wo IV con ?? Accession Number(s): [id number] ? cc: Tammi Andrew; Kera Maria MD [...] by Halley Noonan MD in OV> ? 05/13/231914 ? DD/ 1807 ? TD/TT: ? Cardiac Catheterization Technician: SUJ ? Procedure Note Nayely Holman - 05/13/[address] [place] [address] [address] Scan Report Signed Patient: Kaylee Penny#: [id number] : 1950cct:[id number] Age/Sex: 72 / FADM Date: 05/13/23 Loc: HO.ED Attending Dr: Ordering Physician: Tammi Andrew Date of Service: 05/13/23 Procedure(s): CT cervical spine wo IV con Accession Number(s): [id number] cc: Tammi Andrew; Kera Maria MD EXAMINATION: [...] MD in OV> 05/13/231914 DD/ 06 TD/TT: Cardiac Catheterization Technician: ELMO [facility] External Provider IMG MRI PROCEDURES Edited Result - Final * MR Pelvis w/o Contrast (05/13/2023 6:07 PM EDT) Anatomical Region Laterality Modality Body, Pelvis Magnetic Resonan ce 05/13/2023 6:07 PM EDT Narrative 05/13/2023 7:01 PM EDT ? [facility] ?[address] ?[place] [address] ? CT Scan Report ? Signed ? Patient: Sofía Penny ?MR#: ?? [id number] ? : 1950 ?Acct:[id number] ? Age/Sex: 72 / F ?ADM Date: 05/13/23 ? Loc: HO.ED ? Attending Dr: ? Ordering Physician: Tammi Andrew ?? Date of Service: 05/13/23 ?? Procedure(s): CT pelvis wo IV con ?? Accession Number(s): [id number] ? cc: Tammi Andrew; Kera Maria MD [...] by Reid Moreno MD in OV> ? 05/13/23 1858 ? DD/ 1807 ? TD/TT: ? Cardiac Catheterization Technician: SS ? Procedure Note Nayely Holman - 05/13/[address] [address] [address] Scan Report Signed Patient: Kaylee Penny#: [id number] : 1950cct:[id number] Age/Sex: 72 / FADM Date: 05/13/23 Loc: HO.ED Attending Dr: Ordering Physician: Tammi Andrew Date of Service: 05/13/23 Procedure(s): CT pelvis wo IV con Accession Number(s): [id number] cc: Tammi Andrew; Kera Maria MD EXAMINATION: [...] in OV> 05/13/23 1858 DD/ 1807 TD/TT: Cardiac Catheterization Technician: SS [facility] External Provider IMG MRI PROCEDURES Edited Result - Final * CT Head w/o Contrast (05/13/2023 6:07 PM EDT) Anatomical Region Laterality Modality Head, Neck Computed Tomogra phy 05/13/2023 6:07 PM EDT Narrative 05/13/2023 6:59 PM EDT ? [facility] ?[address] ?[place] [address] ? CT Scan Report ? Signed ? Patient: David Momin,Sofía ?MR#: ?? [id number] ? : 1950 ?Acct:[id number] ? Age/Sex: 72 / F ?ADM Date: 05/13/23 ? Loc: HO.ED ? Attending Dr: ? Ordering Physician: Tammi Andrew ?? Date of Service: 05/13/23 ?? Procedure(s): CT head/brain wo IV con ?? Accession Number(s): [id number] ? cc: Tammi Andrew; Kera Maria MD [...] in OV> ? 05/13/23 1856 ? DD/ 06 ? TD/TT: ? Cardiac Catheterization Technician: SUJ ? Procedure Note River, Nayely - 05/13/[address] [place] [address] CT Scan Report Signed Patient: Kaylee Penny#: [id number] : 1950cct:[id number] Age/Sex: 72 / FADM Date: 05/13/23 Loc: HO.ED Attending Dr: Ordering Physician: Tammi Andrew Date of Service: 05/13/23 Procedure(s): CT head/brain wo IV con Accession Number(s): [id number] cc: Tammi Andrew; Kera Maria MD EXAMINATION: [...] by Halley Noonan MD in OV> 05/13/23 0079 DD/ 06 TD/TT: Cardiac Catheterization Technician: ELMO [facility] External Provider IMG CT PROCEDURES Edited Result - Final * XR Hip right with Pelvis 1 view (05/13/2023 3:58 PM EDT) Anatomical Region Laterality Modality Lower Extremities, Hip Bilateral Radiograp hic Imaging 05/13/2023 3:58 PM EDT Narrative 05/13/2023 5:03 PM EDT ? [facility] ?[address] ?[place] [address] ?XRay Report ? Signed ? Patient: David Momin,Sofía ?MR#: ?? [id number] ? : 1950 ?Acct:[id number] ? Age/Sex: 72 / F ?ADM Date: 05/13/23 ? Loc: HO.ED ? Attending Dr: ? Ordering Physician: Tammi Andrew ?? Date of Service: 05/13/23 ?? Procedure(s): XR hip RT w PEL1V ?? Accession Number(s): [id number] ? cc: Tammi Andrew; Kera Maria MD [...] at the right hip. ? Dictated By: ?Dinauer,Oscar A MD ? Signed By: ?<Electronically signed by Oscar Oseguera, in OV> ? 05/13/23 1659 ? DD/ 1558 ? TD/TT: ? Cardiac Catheterization Technician: PD ? Procedure Nayely Robins - 05/13/2023 [facility] [address] [place] [address] XRay Report Signed Patient: Kaylee Penny#: [id number] : 1950cct:[id number] Age/Sex: 72 / FADM Date: 05/13/23 Loc: HO.ED Attending Dr: Ordering Physician: Tammi Andrew Date of Service: 05/13/23 Procedure(s): XR hip RT w PEL1V Accession Number(s): [id number] cc: Tammi Andrew; Kera Maria MD EXAMINATION: [...] in OV> 05/13/23 1659 DD/ 1558 TD/TT: Cardiac Catheterization Technician: PD [facility] External Provider IMG XR PROCEDURES Final Result documented in this encounter Visit Diagnoses Not on filedocumented in this encounter Care Teams Director Of Hotel Operations Relationship Specialty Start Date End Date Kera Maria MD [address] [place] [phone] PCP - General Family Medicine 07/22/18 documented as of this encounter
--- OUTSIDE RECORDS SUMMARY | 2024-11-06 11:57 | XMS_ITS | Encounter Summary ---
Author Organization [employer] [facility] Address [address] [facility] 7t [place] [address] Care Team Providers Care Guest Services Ambassador Name Role Phone Kera Maria MD Primary Care Provider [phone] Encounter Details Date Type Department Care Team (Late st Contact Info) Description 10/15/2022 Orders Only [facility] MEDICINE [address] [place] [phone] Juhi Onofre LPN Social History Tobacco Use [...] Description 11/12/2024 10:30 AM EDT Medication Management [facility] [address] [place] [phone] Lev Smith, PharmD [address] [place] [phone] 12/15/2024 10:30 AM EDT Office Visit [facility] [address] [place] [phone] Kera Maria MD [address] [place] [phone] documented as of this encounter Visit Diagnoses Not on filedocumented in this encounter Care Teams Guest Services Ambassador Relationship Specialty Start Date End Date Kera Maria MD [address] [place] [phone] PCP - General Family Medicine 07/22/18 documented as of this encounter
--- OUTSIDE RECORDS SUMMARY | 2024-11-06 11:57 | XMS_ITS | Encounter Summary ---
Author Organization [employer] Address [address] [facility] 7t [place] [address] Care Team Providers Care Supervisor Print Line Name Role Phone Kera Maria MD Primary Care Provider [phone] Reason for Referral * Consultation (Routine) - Authorized Specialty Diagnoses / Procedures Referred By Contac t Referred To Contact Pharmacy Diagnoses Type 2 diabetes mellitus with hyperglycemia, with long-term current use of insulin (CMS/HCC) Essential hypertension Kera Maria MD [address] [place] [phone] Phone: tel: fax: Referral ID Status Reason Start Date Expiration Date Visits Requested Visits Authorized [id number] Authorized Consult and Treat 10/16/2024 10/16/2025 6 6 Encounter Details Date Type Department Care Team (Late st Contact Info) Description 10/16/2024 Orders Only [facility] [address] [place] [address] [phone] Kera Maria MD [address] [place] [address] [phone] Type 2 diabetes mellitus with hyperglycemia, with long-term current use of insulin (CMS/HCC) (Primary Dx); Essential hypertension; Dyslipidemia Social History Tobacco Use Types Packs/Day Years [...] Description 11/12/2024 10:30 AM EDT Medication Management [facility] [address] [place] [phone] Lev Smith, HermilaD [address] [place] [phone] 12/15/2024 10:30 AM EDT Office Visit [facility] [address] [place] [phone] Kera Maria MD [address] [place] [phone] Scheduled Referrals Name Type Priority Associated Diagnoses Orde r Schedule Referral to Pharmacy CDTM Outpatient Referral Routine Type 2 diabetes mellitus with hyperglycemia, with long-term current use of insulin ([facility]) Essential hypertension Ordered: 10/16/2024 documented as of this encounter Visit Diagnoses Diagnosis Type 2 diabetes mellitus with hyperglycemia, with long-term current use of insulin (CMS/HCC)- Primary Essential hypertension Unspecified essential hypertension Dyslipidemia Other and unspecified hyperlipidemia documented in this encounter Care Teams Supervisor Print Line Relationship Specialty Start Date End Date Kera Maria MD [address] [place] [phone] PCP - General Family Medicine 07/22/18 documented as of this encounter
--- OUTSIDE RECORDS SUMMARY | 2024-11-06 11:57 | XMS_ITS | Encounter Summary ---
Author Organization [employer] Address [address] [facility] 7t [place] [address] Care Team Providers Care Switch Coupler Name Role Phone Kera Maria MD Primary Care Provider Reason for Visit * Reason Comments Med Refill Encounter Details Date Type Department Care Team ([facility] Contact Info) Description 04/17/2024 Refill [facility] [address] [place], [place] [phone] Kera Maria MD [address] [place], [place] [phone] Social History Tobacco Use Types Packs/Day Years [...] EDT Medication Management [facility] [address] [place] [phone] Lev Smith, PharmD [address] [place] [phone] 12/15/2024 10:30 AM EDT Office Visit [facility] [address] [place] [phone] Kera Maria MD [address] [place] [phone] documented as of this encounter Visit Diagnoses Not on filedocumented in this encounter Care Teams Switch Coupler Relationship Specialty Start Date End Date Kera Maria MD [address] [place] [phone] PCP - General Family Medicine 07/22/18 documented as of this encounter
== END 2024-11-06 11:32 | disposition home or self-care (01) ==
LOC: HO.HPS 10:52
PROVIDERS: PCP Family Medicine; Visit Provider Hospitalist
DX: J98.4 Other disorders of lung (principal); R06.09 Other forms of dyspnea
CPT/HCPCS: 99214

== ENCOUNTER → 2024-11-06 10:52 | Outpatient (BNVA) | payer OTHER, SELFPAY | PROVIDERS: PCP Family Medicine; Visit Provider Hospitalist | DX: J98.4 Other disorders of lung (principal); R06.09 Other forms of dyspnea | CPT/HCPCS: 99212 ==

== ENCOUNTER 2024-11-23 10:42 | Outpatient (REF) | payer OTHER, SELFPAY ==
--- NOTE | ~2024-11-23 | US_ITS ---
CLINICAL HISTORY: R32 - Unspecified urinary incontinence US Renal Comparison: None Findings: Right kidney normal size and echotexture, 10.9 cm length. Left kidney normal size and echotexture, 10.1 cm length. No hydronephrosis of either kidney. Normal color Doppler. Urinary bladder is unremarkable. Prevoid volume 721 mL. Postvoid volume 220 mL. Bilateral ureteral jets are visualized. IMPRESSION: 1. Normal kidneys. 2. Moderate postvoid residual within the bladder. This document has been electronically signed by: Mundo Jessica MD on 11/23/2024 13:09:52
--- OUTSIDE RECORDS SUMMARY | 2024-11-23 12:11 | XMS_ITS | Clinical Summary ---
Demographics Address [address] [facility] [address] [place] [address] Mobile Phone Work Phone Home Phone Preferred Language es Marital Status Lutheran Affiliation Unknown Race Other Race Ethnic Group or Author Organization [employer] Address [address] [facility] [address] [place] [address] Care Team Providers Care Electronics Manufacturer Name Role Phone Kera Maria MD Primary Care Provider [phone] Lev Smith PharmD Unavailable [phone] Allergies Active Allergy Reactions Criticality Noted Date Comments Latex 06/21/2023 Medications Misc. Devices (Pulse Oximeter For Finger) miscIndications: COVID-19 To check your oxygen level every 4 hours. Call the office if O2 Sat drops below 90% 1 each [address] 10 MG tablet 023 Active magnesium oxide (Mag-Ox) 400 (240 Mg) MG tablet 023 Active nitrofurantoin (Macrodantin) 50 MG capsule TAKE 1 CAPSULE BY MOUTH AT BEDTIME TAKE WITH FOOD 023 Active Elmiron 100 MG capsule 023 Active riboflavin (vitamin B2) 100 mg tablet tablet 023 Active Simethicone Ultra Strength 180 MG capsule 023 Active Lancets (OneTouch Delica Plus [id number]) miscIndications: Type 2 diabetes mellitus with other specified complication, unspecified whether terminal operations supervisor insulin use ([facility]) TEST BLOOD SUGAR 3 TIMES A DAY 100 each 11 024 Active montelukast (Singulair) 10 MG tablet TAKE 1 TABLET BY MOUTH AT BEDTIME 90 tablet 3 024 Active Alcohol Swabs (Alcohol Prep) 70 % padsIndications: Type 2 diabetes mellitus with hyperglycemia ([facility]) USE DIRECTED WITH INSULIN 100 each 11 2 024 Active celecoxib (CeleBREX) 200 MG capsule TAKE 1 CAPSULE BY MOUTH EVERY TWELVE HOURS NEEDED FOR PAIN WITH FOOD 40 capsule 1 Active Dulaglutide (Trulicity) 1.5 MG/0.5ML solution auto-injectorInd ications:Type 2 diabetes mellitus with hyperglycemia, with long-term current use of insulin ([facility]) Inject 1.5 mg under the skin 1 (one) time per week. 2 mL Active alendronate (Fosamax) 70 MG tablet Take [...] BY MOUTH EVERY MORNING 90 tablet 3 Active ezetimibe (Zetia) 10 MG tabletIndication s:Mixed hyperlipidemia TAKE 1 TABLET BY MOUTH AT BEDTIME 90 tablet 3 Active losartan (Cozaar) 50 MG tablet TAKE 1 TABLET BY MOUTH AT BEDTIME 90 tablet 3 Active levocetirizine (Xyzal) 5 MG tabletIndication s:Allergic rhinitis, unspecified seasonality, unspecified trigger TAKE 1 TABLET BY MOUTH EVERY EVENING 90 tablet 1 024 Active traZODone (Desyrel) 50 MG tabletIndication s:Depression, unspecified depression type TAKE 1 TABLET BY MOUTH AT BEDTIME 90 tablet 1 Active rosuvastatin (Crestor) 40 MG tablet TAKE 1 TABLET BY MOUTH AT BEDTIME 90 tablet 1 Active Lantus SoloStar 100 UNIT/ML pen INJECT 16-18 UNITS SUBCUTANEOUSLY EVERY EVENING DIRECTED 15 mL Active Continuous Glucose Right Of Way Agent (FreeStyle La 2 [place]) deviceIndication s:Type 2 diabetes mellitus with hyperglycemia, with long-term current use of insulin ([facility]) Scan sensor every 8 hours 1 each Active Continuous Glucose Sensor (FreeStyle La 2 Sensor) miscIndications: Type 2 diabetes mellitus with hyperglycemia, with long-term current use of insulin ([facility]) Apply 1 sensor every 14 days 2 each Active glucose blood (FreeStyle Precision Adeel Test) test strip Use to test blood sugar 3 times daily 100 each 12 025 2025 Active UltiCare Short Pen [place] 31G X 8 MM miscIndications: Type 2 diabetes mellitus with hyperglycemia ([facility]) Use as instructed 100 each Active Aspirin Low Dose 81 MG EC tablet TAKE 1 TABLET BY MOUTH EVERY MORNING 30 tablet 11 Active cholecalciferol (Vitamin D-3) 25 MCG tablet TAKE 1 TABLET BY MOUTH EVERY MORNING 30 tablet 11 Active azelastine (Astelin) 0.1 % nasal spray Active Breo Ellipta 200-25 MCG/ACT aerosol powder Active fluticasone (Flonase) 50 MCG/ACT nasal spray USE 2 SPRAYS IN EACH NOSTRIL DAILY FOR 30 DAYS Active furosemide (Lasix) 40 MG tablet Take 40 mg by mouth in the morning. Active nitroglycerin (Nitrostat) 0.4 MG SL tablet DISSOLVE 1 TABLET UNDER THE TONGUE EVERY 5 MINUTES NEEDED FOR CHEST PAIN. CALL 911 IF NO RELIEF NO MORE THAN 3 TABLETS 025 Active solifenacin (VESIcare) 5 MG tablet Take 1 tablet by mouth Once per day. Active metFORMIN XR (Glucophage-XR) 750 MG 24 hr tabletIndication s:Type 2 diabetes mellitus with hyperglycemia, with long-term current use of insulin ([facility]) Take 1 tablet by mouth twice daily with meals 180 tablet 3 025 Active cholecalciferol (Vitamin D-3) 25 MCG tablet TAKE 1 TABLET BY MOUTH EVERY MORNING 023 2024 Discontinued(M ed list cleanup (will not trigger notification to Pharmacy)) glucose blood (OneTouch Ultra) test stripIndications :Type 2 diabetes mellitus with other specified complication, unspecified whether terminal operations supervisor insulin use ([facility]) TEST BLOOD SUGAR 3 TIMES A DAY 100 strip 11 024 2024 Discontinued(M ed list cleanup (will not trigger notification to Pharmacy)) Bisacodyl EC 5 MG EC tablet TAKE 2 TABLETS BY MOUTH AT BEDTIME FOR 2 DAYS 024 2024 Discontinued(M ed list cleanup (will not trigger notification to Pharmacy)) Noy-Tussin DM 10-100 MG/5ML liquid TAKE 5ml BY MOUTH EVERY 4 HOURS NEEDED FOR COUGH FOR UP TO 10 DAYS 023 2024 Discontinued(M ed list cleanup (will not trigger notification to Pharmacy)) PEG 2106-XYw-IiGaq-N aCl-NaSulf (PEG-3350/Electr olytes) 236 g reconstituted solution MIX WITH WATER AND DRINK 240 ML EVERY 10 MINUTES UNTIL FECAL EFFLUENT IS CLEAR DO NOT EXCEED 1/2 BOTTLE 024 2024 Discontinued(M ed list cleanup (will not trigger notification to Pharmacy)) furosemide (Lasix) 20 MG tablet Take 20 mg by mouth Once per day. 024 2024 Discontinued(M ed list cleanup (will not trigger notification to Pharmacy)) metFORMIN, OSM, (Fortamet) 1000 MG 24 hr tablet Take 1 tablet (1,000 mg) by mouth with breakfast and with evening meal. Do not crush, chew, or split. 60 tablet 11 025 2024 Discontinued(S td effects) Active Problems Problem Noted Date Diagnosed Date [...] (09/08/2024 10:24 AM EST): - following with [facility] - last US in November 2021 Assessment & Plan (05/29/2024 3:20 PM EST): - following with [facility] - last US in November 2021 Assessment & Plan (06/20/2023 5:47 AM EST): - following with [facility] - last US in November 2021 Restrictive airway disease 06/20/2023 Assessment & Plan (05/29/2024 3:18 PM EST): - evaluated by bankruptcy legal assistant - last PFT in December 2022, no obstructive airway disease / RAD - breathing exercise Assessment & Plan (06/20/2023 6:01 AM EST): - evaluated by bankruptcy legal assistant - last PFT in December 2022, no obstructive airway disease / RAD - breathing exercise Proteinuria 10/28/2020 Chronic interstitial cystitis 11/25/2017 Assessment & Plan (05/29/2024 3:22 PM EST): Seen by [facility] provider on 02/08/22 for f/u recurrent UTI and IC. Pt currently on Elmiron and nitrofurantoin per note. Assessment & Plan (06/20/2023 5:26 AM EST): Seen by [facility] provider on 02/08/22 for f/u recurrent [...] PM EST): -following with urology Atherosclerosis of [place] co ronary artery of [place] heart without angina pectoris 04/25/2015 06/12/2023 Insomnia 04/25/2015 06/12/2023 Overweight 04/25/2015 06/12/2023 Essential hypertension 04/25/2015 Assessment & Plan (09/08/2024 10:23 AM EST): -Goal BP < 140/90 per JNC-8 and < 130/80 per ACC/AHA guideline -Co-managed with automobile lights assembler and willow worker -Slightly elevated BP, possibly due to her [...] < 130/80 per ACC/AHA guideline -Co-managed with automobile lights assembler and willow worker -Slightly elevated BP, possibly due to her [...] < 130/80 per ACC/AHA guideline -Co-managed with automobile lights assembler and willow worker -Slightly elevated BP, possibly due to her [...] (09/11/2024 2:28 PM EST): - following with [facility], last seen in May 2023 - last UTI in Feb 2024, breakthrough (on nitrofurantoin prophylaxis). - urine culture in Feb 2024 grew Klebsiella. Treated with TMP/SMX. - relative contraindication to SGLT2i Assessment & Plan (05/24/2024 6:20 AM EST): - following with [facility], last seen in May 2023 - [...] Plan (06/20/2023 5:25 AM EST): Seen by [facility] provider on 02/08/22 for f/u recurrent UTI and IC. Pt currently on Elmiron and nitrofurantoin. -Last UTI DECEMBER 2021. -Cont Elmiron and nitrofurantoin. 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/16/2005 06/12/2023 Resolved Problems Problem Noted Date Diagnosed Date Resolved Date Disorder of vein 06/26/2018 06/12/2023 06/20/2023 Encounters Date Type Department Care Team Description 11/12/2024 Travel 11/11/2024 Telephone [facility] [address] [place] [phone] Kera Maria MD FYI 10/19/2024 Orders Only [facility] [address] [place] [phone] Kera Maria MD Type 2 diabetes mellitus with hyperglycemia, with long-term current use of insulin ([facility]) (Primary Dx); Essential hypertension 10/19/2024 Telephone [facility] [address] [place] [phone] Kera Maria MD 10/16/2024 Orders Only [address] [address] Kera Maria MD Type 2 diabetes mellitus with hyperglycemia, with long-term current use of insulin ([facility]) (Primary Dx); Essential hypertension; Dyslipidemia 10/16/2024 Telephone [facility] [address] [place] [phone] Kera Maria MD 10/02/2024 Orders Only GENERIC EXTERNAL DATA DEPARTMENT Provider, Generic External Data 09/23/2024 Refill [facility] [address] [place] [phone] Kera Maria MD 09/17/2024 Refill [facility] [address] [place] [address] Kera Maria MD Type 2 diabetes mellitus with hyperglycemia ([facility]) 09/14/2024 Orders Only [facility] [address] [place] [address] Chey Rosado MD 09/14/[address] [address] Kera Maria MD Prior Authorization 09/10/2024 Orders Only GENERIC EXTERNAL DATA DEPARTMENT Provider, Generic External Data 09/08/2024 10:30 AM EST Office Visit [facility] [address] [place] [phone] Kera Maria MD BART (obstructive sleep apnea) (Primary Dx); S/P CABG x 3; Peripheral venous insufficiency; Ischemic heart disease; Essential hypertension; Metabolic dysfunction-associated steatotic liver disease (MASLD); Mixed stress and urge urinary incontinence; Type 2 diabetes mellitus with hyperglycemia, with long-term current use of insulin ([facility]); Dyslipidemia; Osteopenia of lumbar spine; History of fracture of pelvis; Dietary counseling; Exercise counseling; Overweight; Tubular adenoma of colon; Recurrent urinary tract infection 09/08/2024 Travel 09/03/2024 Telephone [facility] [address] [facility] [place] [address] Joanne Jimenez MA chart prep 09/03/2024 Abstract [facility] [address] [place] [address] Joanne Jimenez MA from Last 3 Months [...] Sign Reading Time Taken Comments Blood Pressure 136/82 11/12/2024 11:02 AM EDT Pulse 82 09/08/2024 9:57 AM EST Temperature [...] Care Team (Late st Contact Info) Description 11/26/2024 10:30 AM EDT Medication Management [facility] [address] [place] [phone] Lev Smith, HermilaD [address] [place] [address] 12/15/2024 10:30 AM EDT Office Visit [facility] [address] [place] [phone] Kera Maria MD [address] [place] [address] Health Maintenance Due Date Last Done Comments [...] hyperglycemia, with long-term current use of insulin ([facility]) POCT GLUCOSE Routine 09/08/2024 10:00 AM EST Type 2 diabetes mellitus with hyperglycemia, with long-term current use of insulin (CMS/HCC) HM DIABETES EYE EXAM Routine 01/06/2024 BI MAMMOGRAM SCREENING TOMOSYNTHESIS BILATERAL Routine 11/29/2023 10:25 AM EDT ALBUMIN, RANDOM URINE W/CREATININE Routine 06/20/2023 1:03 PM EST Type 2 diabetes mellitus without complication, with long-term current use of insulin (CMS/HCC) LIPID PANEL WITH REFLEX TO DIRECT LDL Routine 06/20/2023 1:03 PM EST Type 2 diabetes mellitus without complication, with long-term current use of insulin (CMS/HCC) Dyslipidemia from Last 3 Months or Most Recently Relevant to Health Maintenance Results * XR Chest 2 Views (10/02/2024 8:00 PM EDT) Anatomical Region Laterality Modality Chest Radiographic Collette ging 10/02/2024 8:00 PM EDT Narrative 10/02/2024 8:02 PM EDT ? [facility] ?[address] ?[place] [address] ?XRay Report ? Signed ? Patient: David Momin,Sofía ?MR#: ?? [id number] ? : 1950 ?Acct:[id number] ? Age/Sex: 74 / F ?ADM Date: 10/02/24 ? Loc: HO.ED ? Attending Dr: ? Ordering Physician: Anni Dias BALLISTICIAN ?? Date of Service: 10/02/24 ?? Procedure(s): XR chest 2V ?? Accession Number(s): [id number] ? cc: Kera Maria MD; Anni Dias NP ? CLINICAL HISTORY: dyspnea ? 2 view chest x-ray ? Comparison: DX/SR - XR CHEST 2V - 3 13:51 EDT ? Findings: ?? No consolidation [...] ? DD/ 99 ? TD/TT: 10/02/241999 ? Staffing Account Manager: ? Procedure Note Donotandreinterpreter, Image - 10/02/[address] [address] XRay Report Signed Patient: Kaylee Penny#: [id number] : 1950cct:[id number] Age/Sex: 74 / FADM Date: 10/02/24 Loc: HO.ED Attending Dr: Ordering Physician: Anni Dias NP Date of Service: 10/02/24 Procedure(s): XR chest 2V Accession Number(s): [id number] cc: Kera Maria MD; Anni Dias NP [...] in OV> 10/02/242000 DD/ 99 TD/TT: 10/02/241999 Staffing Account Manager: [facility] External Provider IMG XR PROCEDURES Edited Result - Final * High Sensitivity Troponin I (10/02/2024 7:08 PM EDT) TROPONIN I HIGH SENSITIVITY <2.7 <3.5 - 17.0 ng/L [facility] Comment:The Contreras high sens itivity Troponin-I results should beused in conjunction with other diagnostic information suchas ECG, clinical observations and information, and patientsymptoms to aid in the diagnosis of LA. 10/02/2024 7:08 PM EDT 10/02/2024 7:15 PM EDT Generic External Data Provider LAB BLOOD ORDERAB LES Final Result Performing Organization Address [facility]/ZIP Co de Phone Number [facility] [address] [place] [phone] * SARS-CoV-2 RNA, Influenza A/B, and RSV RNA, Ql NAAT (10/02/2024 7:08 PM EDT) Influenza A PCR NEGATIVE Negative [facility] Influenza B PCR NEGATIVE Negative [facility] Resp Syncy Virus RNA Qual PCR NEGATIVE Negative [facility] SARS COV2 PCR NEGATIVE Negative [facility] Comment:All test results mus t [...] use by authorized laboratories.Testing performed on the [employer] GeneXpert utilizingreal-time RT-PCR.All SARS CoV2 and positive influenza A/B results arereported to [facility]. 10/02/2024 7:08 PM EDT 10/02/2024 7:15 PM EDT us Generic External Data Provider LAB MICROBIOLOGY - GENERAL ORDERABLES Final Result Performing Organization Address [facility]/ZIP Co de Phone Number [facility] [address] [place] [phone] * (ABNORMAL) CBC auto differential (10/02/2024 7:08 PM EDT) White Blood Count 6.8 4.8 - 10.8 X10*3/uL [facility] Red Blood Count 4.33 4.20 - 5.50 X10*6/uL [facility] Hemoglobin 12.0 12.0 - 16.0 g/dl [facility] Hematocrit 35.5(L) 37.0 - 47.0 % [facility] Mean Corpuscular Volume 82.0 80.0 - 98.0 fL [facility] Mean Corpuscular Hemoglobin 27.7 27.0 - 33.0 pg [facility] Mean Corpuscular HGB Conc 33.8 31.0 - 35.0 g/dl [facility] Red Cell Distribution Width 13.6 11.0 - 16.0 % [facility] Platelet Count 182 160 - 400 X10*3/uL [facility] Mean Platelet Volume 9.4 9.4 - 12.3 fL [facility] Neutrophils Percent Auto 52.7 45 - 73 % [facility] Imm Gran Pct Auto 0.1 0.0 - 0.4 % [facility] Lymphocytes Percent Auto 36.1 20 - 40 % [facility] Monocytes Percent Auto 7.8 2 - 11 % [facility] Eosinophils Percent Auto 2.7 0 - 4 % [facility] Basophils Percent Auto 0.6 0 - 2 % [facility] NRBC Pct Auto 0.0 0.0 - 0.2 /100WBC [facility] Neutrophils Absolute Auto 3.6 2.0 - 8.3 x10*3/uL [facility] Imm Gran Abs Auto 0.01 0.00 - 0.03 X10*3/uL [facility] Lymphocytes Absolute Auto 2.5 1.2 - 4.9 X10*3/uL [facility] Monocytes Absolute Auto 0.5 0.1 - 1.2 X10*3/uL [facility] Eosinophils Absolute Auto 0.2 0.0 - 0.4 X10*3/uL [facility] Basophils Absolute Auto 0.0 0.0 - 0.2 X10*3/uL [facility] NRBC Abs Auto 0.000 0.0 - 0.012 X10*3/uL [facility] 10/02/2024 7:08 PM EDT 10/02/2024 7:15 PM EDT us Generic External Data Provider LAB BLOOD ORDERAB LES Final Result Performing Organization Address City/[facility]/ZIP Co de Phone Number [facility] [address] [place] [address] [phone] * B Type Natriuretic Peptide (BNP) (10/02/2024 7:08 PM EDT) B Type Natriuretic Peptide 19 <100 pg/mL [facility] 10/02/2024 7:08 PM EDT 10/02/2024 7:15 PM EDT us Generic External Data Provider LAB BLOOD ORDERAB LES Final Result Performing Organization Address [facility] Co de Phone Number [facility] [address] [place] [address] [phone] * (ABNORMAL) Comprehensive Metabolic Panel (10/02/2024 7:08 PM EDT) Pathologist [facility] Sodium 137 135 - 145 mmol/L [facility] Potassium 3.9 3.3 - 5.1 mmol/L [facility] Chloride 100 96 - 108 mmol/L [facility] Carbon Dioxide 27 22 - 29 mmol/L [facility] Anion Gap 14 12 - 20 [facility] Urea Nitrogen (BUN) 16 9 - 16 mg/dL [facility] Creatinine, Serum 0.80 0.5 - 1.4 mg/dL [facility] Creatinine Clr Calc Pharmacy 55.5 [facility] Comment:Provided height and weight: 152.4 cm,72.2 kg.eGFR (calculated from the MDRD study equation) and eCrCl(calculated from the Cockcroft-Gault equation) are based ondifferent parameters and may not yield comparable results.If eCrCl result is absurd, please check patient'sheight/weight. Estimated Glomerular Filt Rate >60 [facility] Comment:Chronic Kidney Disea se: Estimated GFR < 60 mL/min/1.66t0Wwumrt Kidney Disease: Estimated GFR < 15 mL/min/1.73m2 Glucose 228(H) 60 - 115 mg/dL [facility] Calcium 10.1 8.4 - 10.2 mg/dL [facility] Bilirubin, Total 0.4 0.0 - 1.0 mg/dL [facility] Aspartate Amino Transferase 31 5 - 31 U/L [facility] Alanine Aminotransferase 34(H) 0 - 31 U/L [facility] Total Protein 8.3(H) 6.5 - 8.0 g/dL [facility] Albumin Level 4.3 3.5 - 5.0 g/dL [facility] Alkaline Phosphatase 100 39 - 117 U/L [facility] 10/02/2024 7:0 8 PM EDT 10/02/2024 7:15 PM EDT us Generic External Data Provider LAB BLOOD ORDERAB LES Final Result [facility] [address] [place] [phone] * Hm Colonoscopy (09/10/2024 1:05 PM EST) Historical Provider HEALTH MAINTENANCE Final Result * Hematoxylin and Eosin Stain (09/10/2024 10:14 AM EST) 09/10/2024 10:1 4 AM EST 09/10/2024 10:42 AM EST Narrative [facility] - 09/14/2024 9:11 AM EST ----- ------- Name: Sofía Penny ? Age/Sex: 74/F ? : 1950 Unit#: [id number] ?? Attend Dr: Mayra Montoya MD ?Re09/10/24 ?Status: DEP SDC ? Location: HO.SSS ?Disch: ? ----- ------- SPEC : [id number] ?RECD: 09/10/24-1041 ? STATUS: ??SOUT ? REQ NUM: [id number] ? LEENA: 09/10/24-1014 ? SUBM DR: Mayra Montoya MD ? ENTERED: ??09/10/24-1056 ?SP TYPE: Surgical ? OTHR DR: Kera [...] Copies To: ?? Mayra Montoya MD ?? [facility] ?? [address] ?? [place] [address] ?? [phone] ?? Kera Maria MD ?? [facility] ?? [address] ?? [place] [address] ?? [phone] ----- ------- Signed (signature on file) Jorge Cooper MD 09/14/2411 ? ----- ------- ? END OF REPORT ? us Generic External Data Provider LAB BLOOD ORDERAB LES Final Result Performing Organization Address City/[facility]/ZIP Co de Phone Number [facility] [address] [place] [address] [phone] * (ABNORMAL) Glucose, Whole Blood (09/10/2024 9:20 AM EST) Glucose, Whole Blood 231(H) 60 - 115 mg/dL [facility] Comment:METER #: [id number] 09/10/2024 9:20 AM EST 09/10/2024 9:28 AM EST Generic External Data Provider LAB BLOOD ORDERAB LES Final Result Performing Organization Address [facility] Co de Phone Number [facility] [address] [place] [phone] * (ABNORMAL) POCT glycosylated hemoglobin (Hgb [...] Media Lot # [id number] Lot# Expiration Date ,025 Blood Capillary blood specimen / Unknown 09/08/2024 [...] EDT Narrative 12/27/2023 9:22 AM EDT ? [facility] ? [address] ?[place], [place] [address] ? Mammography Report ? Signed ? Patient: Sofía Penny ?MR#: ?? [id number] ? : 1950 ?Acct:[id number] ? Age/Sex: 73 / F ?ADM Date: 11/29/23 ? Loc: HO.MAMMO ? Attending Dr: Kera Maria MD ? Ordering Physician: Kera Maria MD ?Results: 1Negative ? Date of Service: 11/29/23 ?Follow Up: 1 Year From Orig ?? inal Mammogram ? Procedure(s): MM tomosynthesis screening BI ?? Accession Number(s): [id number] ? cc: Kera Maria MD ? EXAMINATION: [...] 12/27/23917 ? DD/ 1025 ? TD/TT: ? Staffing Account Manager: ? Procedure Note Nayely Holman - 12/27/2023 [place] [facility] [address] [place] [address] Mammography Report Signed Patient: Kaylee Penny#: [id number] : 1950cct:[id number] Age/Sex: 73 / FADM Date: 11/29/23 Loc: NICKIE Attending Dr: Kera Maria MD Ordering Physician: Kera Maria MDResults: 1Negative Date of Service: 11/29/23Follow Up: 1 Year From Orig inal Mammogram Procedure(s): MM tomosynthesis screening BI Accession Number(s): [id number] cc: Kera Maria MD EXAMINATION: MM SCREENING [...] in OV> 12/27/23 0918 DD/ 1025 TD/TT: Staffing Account Manager: Kera Maria MD IM BI PROCEDURES Edited Result - Final * (ABNORMAL) Lipid Panel with Reflex to Direct LDL (06/20/2023 1:03 PM EST) Triglycerides 190(H) <150 mg/dL [facility] Comment:Desirable Triglyceri de: less than 150 mg/dLBorderline High Triglyceride 150-199 mg/dLHigh Triglyceride: 200-499 mg/dLVery High Triglyceride: greater than or equal to 5OO mg/dL Cholesterol 120 <200 mg/dL [facility] Comment:Desirable Cholestero l: less than 200 mg/dLBorderline High Cholesterol: 200-239 mg/dLHigh Cholesterol: greater than 239 mg/dL LDL Cholesterol Calculated 33 <100 mg/dL [facility] Comment:Desirable LDL: less than 100 mg/dLNear Optimal/Above Optimal LDL: 110- 129 mg/dLBorderline High LDL: 130-159 mg/dLHigh LDL: 160-189 mg/dLVery High LDL: greater than or equal to 190 mg/dL HDL Cholesterol 49 >40 mg/dL [facility] Comment:Desirable HDL: great er than 40 mg/dL Note: This HDL assay may give artificially low results in patients with liver disease. Blood 06/20/2023 1:03 PM EST 06/20/2023 3:54 PM EST Kera Maria MD LAB BLOOD ORDERABLES Final Resul t Performing Organization Address [facility] de Phone Number [facility] [address] [place] [address] [phone] * (ABNORMAL) Albumin, Random Urine W/Creatinine (06/20/2023 1:03 PM EST) Creatinine, Urine 187.00 mg/dL [facility] Microalbumin Urine 170.0 mg/L H [facility] Microalbum Creatinine Ratio Ur 90.9(H) <30 ug/mg cr [facility] Comment:Albumin/Creatinine R atio Reference Ranges: Normal: < 30 ug/mg creatinine Microalbuminuria: 30 - 300 ug/mg creatinineClinical Albuminuria: > 300 ug/mg creatinine Urine 06/20/2023 1:03 PM EST 06/20/2023 4:17 PM EST Kera Maria MD LAB URINE ORDERABLES Final Resul t Performing Organization Address [facility] de Phone Number [facility] [address] [place] [address] [phone] from Last 3 Months or Most Recently Relevant to Health Maintenance Insurance [facility] [address]CH[address] [place] [address] [place] [address] 77174 Care Teams Electronics Manufacturer Relationship Specialty Start Date End Date Kera Maria MD [address] [place] [address] PCP - General Family Medicine 07/22/18 eLv Smith, HermilaD [address] [place] [address] Pharmacist Internal Medicine 11/12/24
--- OUTSIDE RECORDS SUMMARY | 2024-11-23 12:11 | XMS_ITS | Encounter Summary ---
Author Organization [facility] Address [address] [facility] 7t [place] [address] Care Team Providers Care Salesperson Men'S Hats Name Role Phone Kera Maria MD Primary Care Provider Lev Smith PharmD Unavailable [phone] Reason for Referral * Imaging (Routine) - Closed Specialty Diagnoses / Procedures Referred By Contac t Referred To Contact Radiology Diagnoses Closed fracture of single pubic ramus of pelvis, right, initial encounter ([facility]) Postmenopause Osteoporosis screening declined Procedures BD DEXA Axial Kera Maria MD [address] [place] [address] Phone: tel: fax: [address] Phone: tel: fax: Referral ID Status Reason Start Date Expiration Date Visits Re quested Visits Authorized [id number] Closed 08/26/2023 08/25/2024 1 1 Encounter Details Date Type Department Care Team (Late st Contact Info) Description 08/26/2023 Orders Only [facility] [address] [place] [address] [phone] Kera Maria MD [address] [place], [place] [phone] Closed fracture of single pubic ramus of [...] Description 11/26/2024 10:30 AM EDT Medication Management [facility] [address] [place] [phone] Lev Smith, HermilaD [address] [place] [address] 48884 12/15/2024 10:30 AM EDT Office Visit [facility] [address] [place] [address] [phone] Kera Maria MD [address] [place] [address] 90097 documented as of this encounter Procedures Procedure Name Priority Date/Time Associated Diagnosis Comments BD DEXA AXIAL Routine 09/13/2023 9:20 AM EST Closed fracture of single pubic ramus of pelvis, right, initial encounter ([facility]) Postmenopause Osteoporosis screening declined documented in this encounter Results * BD DEXA Axial (09/13/2023 9:20 AM EST) Anatomical Region Laterality Modality Body Radiographic Collette ging 09/13/2023 9:20 AM EST Narrative 09/13/2023 5:44 PM EST ? [facility] [place] ? [address] ?[place] [address] ? Mammography Report ? Signed ? Patient: Sofía Penny ?MR#: ?? [id number] ? : 1950 ?Acct:[id number] ? Age/Sex: 73 / F ?ADM Date: 09/13/23 ? Loc: HO.MAMMO ? Attending Dr: Kera Maria MD ? Ordering Physician: Kera Maria MD ?Results: ? Date of Service: 09/13/23 ?Follow Up: ? Procedure(s): XR DEXA axial skeleton ?? Accession Number(s): [id number] ? cc: Kera Maria MD ? EXAMINATION: ?? BONE DENSITOMETRY ? CLINICAL INDICATION: ?? Postmenopausal. ? COMPARISON: ?? This is the patient's baseline examination. ? TECHNIQUE: Using a [employer] DXA System (software version: ?? 13.1) manufactured by [employer], dual-energy x-ray absorptiometry ?? was performed of [...] ?09/13/231739 ? DD/ 0920 ? TD/TT: ? Senior Manager Asset Protection: SK ? Procedure Note Dontonyainterpreter, Image - 09/13/2023 Ingris [facility] [address] [place] [address] Mammography Report Signed Patient: Kaylee Penny#: [id number] : 1950cct:[id number] Age/Sex: 73 / FADM Date: 09/13/23 Loc: NICKIE Attending Dr: Kera Maria MD Ordering Physician: Kera Mariaults: Date of Service: 09/13/23Follow Up: Procedure(s): XR DEXA axial skeleton Accession Number(s): [id number] cc: Kera Maria MD EXAMINATION: BONE DENSITOMETRY CLINICAL INDICATION: Postmenopausal. COMPARISON: This is the patient's baseline examination. TECHNIQUE: Using a [employer] DXA System (software version: 13.1) manufactured by [employer], dual-energy x-ray absorptiometry was performed of the [...] MD Signed By: <Electronically signed by Al Blnad MD in OV> 09/13/23 1740 DD/ 0920 TD/TT: Senior Manager Asset Protection: DOROTHEA Kera Maria MD IMG DXA PROCEDURES Final Result documented in this encounter Visit Diagnoses Diagnosis Closed fracture of single pubic ramus of pelvis, right, initial encounter ([facility])- Primary Postmenopause Asymptomatic postmenopausal status (age-related) (natural) Osteoporosis screening declined documented in this encounter Care Teams Salesperson Men'S Hats Relationship Specialty Start Date End Date Kera aMria MD [address] [place] [address] PCP - General Family Medicine 07/22/18 Lev Smith, HermilaD [address] [place] [address] Pharmacist Internal Medicine 11/12/24 documented as of this encounter
--- OUTSIDE RECORDS SUMMARY | 2024-11-23 12:11 | XMS_ITS | Encounter Summary ---
Author Organization [facility] Address 75 [facility] 7t [place] [address] Care Team Providers Care Distiller Name Role Phone Kera Maria MD Primary Care Provider [phone] Lev Smith PharmD Unavailable [phone] Encounter Details Date Type Department Care Team (Late st Contact Info) Description 08/09/[address] [facility] [address] [place] [address] [phone] Kera Maria MD [address] [place] [address] [phone] Social History Tobacco Use Types Packs/Day Years [...] Description 11/26/2024 10:30 AM EDT Medication Management [facility] [address] [place] [address] [phone] Lev Smith, PharmD [address] [place], [place] [phone] 12/15/2024 10:30 AM EDT Office Visit [facility] [address] [place] [address] [phone] Kera Maria MD [address] [place] [address] [phone] documented as of this encounter Procedures Procedure Name Priority Date/Time Associated Diagnosis Comments MAMMOGRAPHY Routine 08/06/2022 documented in this encounter Results * Mammography (08/06/2022) Mammogram perform Anatomical Region Laterality Modality Other Historical Provider HEALTH MAINTENANCE Final Result documented in this encounter Visit Diagnoses Not on filedocumented in this encounter Care Teams Distiller Relationship Specialty Start Date End Date Kera Maria MD [address] [place] [address] [phone] PCP - General Family Medicine 07/22/18 Lev Smith, Steven [address] [place] [address] 55465 Pharmacist Internal Medicine 11/12/24 documented as of this encounter
--- OUTSIDE RECORDS SUMMARY | 2024-11-23 12:11 | XMS_ITS | Encounter Summary ---
Author Organization [employer] Address [address] [facility] [address] 7t [place] [address] Care Team Providers Care Property Analyst Name Role Phone Kera Maria MD Primary Care Provider [phone] Lev Smith PharmD Unavailable [phone] Reason for Referral * Consultation (Urgent) - Pending Review Specialty Diagnoses / Procedures Referred By Contac t Referred To Contact Pharmacy Diagnoses Type 2 diabetes mellitus with hyperglycemia, with long-term current use of insulin (CMS/HCC) Essential hypertension Kera Maria MD [address] [place] [address] 78[address] Phone: tel: fax: Referral ID Status Reason Start Date Expiration Date Visits Requested Visits Authorized [id number] Pending Review Consult and Treat 10/19/2024 10/19/2025 6 6 Encounter Details Date Type Department Care Team (Late st Contact Info) Description 10/19/2024 Orders Only [facility] [address] [place] [address] [phone] Kera Maria MD [address] [place] [address] [phone] Type 2 diabetes mellitus with hyperglycemia, with [...] Description 11/26/2024 10:30 AM EDT Medication Management [facility] [address] [place] [address] 05150 Lev Smith, PharmD [address] [place] [address] 22889 12/15/2024 10:30 AM EDT Office Visit [facility] [address] [place] [address] 39246 Kera Maria MD [address] [place] [address] 13862 Scheduled Referrals Name Type Priority Associated Diagnoses Orde r Schedule Referral to Pharmacy CDTM Outpatient Referral Urgent Type 2 diabetes mellitus with hyperglycemia, with long-term current use of insulin ([facility]) Essential hypertension Ordered: 10/19/2024 documented as of this encounter Visit Diagnoses Diagnosis Type 2 diabetes mellitus with hyperglycemia, with long-term current use of insulin ([facility])- Primary Essential hypertension Unspecified essential hypertension documented in this encounter Care Teams Property Analyst Relationship Specialty Start Date End Date Kera aMria MD [address] [place] [address] PCP - General Family Medicine 07/22/18 Lev Smith, Steven [address] [place] [address] Pharmacist Internal Medicine 11/12/24 documented as of this encounter
--- OUTSIDE RECORDS SUMMARY | 2024-11-23 12:11 | XMS_ITS | Encounter Summary ---
Author Organization [employer] Address 75 [facility] 7t [place] [address] Care Team Providers Care Head Pastry Chef Name Role Phone Kera Maria MD Primary Care Provider [phone] Lev Smith PharmD Unavailable [phone] Encounter Details Date Type Department Care Team (Late st Contact Info) Description 03/11/2023 Orders Only [facility] [address] [place] [address] Elena Unger LPN Social History Tobacco Use [...] Description 11/26/2024 10:30 AM EDT Medication Management [facility] [address] [place] [address] [phone] Lev Smith, PharmD [address] [place], [place] [phone] 12/15/2024 10:30 AM EDT Office Visit [facility] [address] [place] [address] 21761 Kera Maria MD [address] [place] [address] [phone] documented as of this encounter Visit Diagnoses Not on filedocumented in this encounter Care Teams Head Pastry Chef Relationship Specialty Start Date End Date Kera Maria MD [address] [place], [place] [phone] PCP - General Family Medicine 07/22/18 Lev Smith, Steven [address] [place] [address] Pharmacist Internal Medicine 11/12/24 documented as of this encounter
--- OUTSIDE RECORDS SUMMARY | 2024-11-23 12:11 | XMS_ITS | Encounter Summary ---
Author Organization [employer] Address 75 [facility] 7t [place] [address] Care Team Providers Care Refrigerating Engineer Name Role Phone Kera Maria MD Primary Care Provider [phone] Lev Smith PharmD Unavailable [phone] Reason for Visit * Reason Onset Date Comments Appointment Request 05/10/2023 Encounter Details Date Type Department Care Team (Late Contact Info) Description 05/10/2023 Telephone [facility] [address] [place] [address] Kera Maria MD [address] [place], [place] [phone] Appointment Request Social History Tobacco Use Types [...] appt with PCP, any question contact pt [phone]. documented in this encounter Plan of Treatment Upcoming Encounters Date Type Department Care Team (Late Contact Info) Description 11/26/2024 10:30 AM EDT Medication Management [facility] [address] [place] [address] [phone] Lev Smith, PharmD [address] [place] [address] 12593 12/15/2024 10:30 AM EDT Office Visit [address] [address] Kera Maria MD [address] [place] [address] 96692 documented as of this encounter Visit Diagnoses Not on filedocumented in this encounter Care Teams Refrigerating Engineer Relationship Specialty Start Date End Date Kera Maria MD [address] [place] [address] [phone] PCP - General Family Medicine 07/22/18 Lev Smith, PharmD [address] [place] [address] 14129 Pharmacist Internal Medicine 11/12/24 documented as of this encounter
--- OUTSIDE RECORDS SUMMARY | 2024-11-23 12:11 | XMS_ITS | Encounter Summary ---
Author Organization [employer] Address [address] [facility] [address] 7t [place] [address] Care Team Providers Care School Patrol Name Role Phone Kera Maria MD Primary Care Provider [phone] Lev Smith PharmD Unavailable [phone] Reason for Visit * Reason Comments Med Refill Encounter Details Date Type Department Care Team ([facility] st Contact Info) Description 07/04/2023 Refill [facility] [address] [place], [place] [phone] Kera Maria MD [address] [place], [place] [phone] Social History Tobacco Use Types Packs/Day Years [...] Description 11/26/2024 10:30 AM EDT Medication Management [facility] [address] [place] [address] [phone] Lev Smith, Steven [address] [place] [address] 74789 12/15/2024 10:30 AM EDT Office Visit [facility] [address] [place] [address] 57767 Kera Maria MD [address] [place] [address] 29294 documented as of this encounter Visit Diagnoses Not on filedocumented in this encounter Care Teams School Patrol Relationship Specialty Start Date End Date Kera Maria MD [address] [place] [address] 48010 PCP - General Family Medicine 07/22/18 Lev Smith, PharmD [address] [place] [address] 45141 Pharmacist Internal Medicine 11/12/24 documented as of this encounter
--- OUTSIDE RECORDS SUMMARY | 2024-11-23 12:11 | XMS_ITS | Encounter Summary ---
Author Organization [employer] Address 75 [facility] 7t [place] [address] Care Team Providers Care Hollow Handle Bench Worker Name Role Phone Kera Maria MD Primary Care Provider [phone] Lev Smith PharmD Unavailable [phone] Reason for Referral * Consultation (Routine) - Pending Review Specialty Diagnoses / Procedures Referred By Contac t Referred To Contact Pharmacy Diagnoses Type 2 diabetes mellitus with hyperglycemia, with long-term current use of insulin (CMS/HCC) Essential hypertension Kera Maria MD [address] [place] [address]487 Phone: tel: fax: Referral ID Status Reason Start Date Expiration Date Visits Requested Visits Authorized [id number] Pending Review Consult and Treat 10/16/2024 10/16/2025 6 6 Encounter Details Date Type Department Care Team (Late st Contact Info) Description 10/16/2024 Orders Only [facility] [address] [place] [address] [phone] Kera Maria MD [address] [place] [address] [phone] Type 2 diabetes mellitus with hyperglycemia, with [...] Description 11/26/2024 10:30 AM EDT Medication Management [facility] [address] [place] [address] [phone] Lev Smith, HermilaD [address] [place] [address] [phone] 12/15/2024 10:30 AM EDT Office Visit [facility] [address] [place] [address] [phone] Kera Maria MD [address] [place] [address] [phone] Scheduled Referrals Name Type Priority Associated Diagnoses Orde r Schedule Referral to Pharmacy CDTM Outpatient Referral Routine Type 2 diabetes mellitus with hyperglycemia, with long-term current use of insulin ([facility]) Essential hypertension Ordered: 10/16/2024 documented as of this encounter Visit Diagnoses Diagnosis Type 2 diabetes mellitus with hyperglycemia, with long-term current use of insulin ([facility])- Primary Essential hypertension Unspecified essential hypertension Dyslipidemia Other and unspecified hyperlipidemia documented in this encounter Care Teams Hollow Handle Bench Worker Relationship Specialty Start Date End Date Kera Maria MD [address] [place] [address] 28794 PCP - General Family Medicine 07/22/18 Lev Smith PharmD [address] [place] [address] 0[address] Pharmacist Internal Medicine 11/12/24 documented as of this encounter
--- OUTSIDE RECORDS SUMMARY | 2024-11-23 12:11 | XMS_ITS | Encounter Summary ---
Author Organization [employer] Address [address] [facility] [address] 7t [place] [address] Care Team Providers Care Excavating Contractor Name Role Phone Kera Maria MD Primary Care Provider [phone] Lev Smith PharmD Unavailable [phone] Reason for Visit * Reason Onset Date Comments Results 06/26/2023 Encounter Details Date Type Department Care Team ([facility] st Contact Info) Description 06/26/2023 Telephone [facility] [address] [place], [place] [phone] Kera Maria MD [address] [place], [place] [phone] Results Social History Tobacco Use Types Packs/Day [...] xray to knee. Please contact pt at [phone] (talend developer needed) documented in this encounter Plan of Treatment Upcoming Encounters Date Type Department Care Team (Late st Contact Info) Description 11/26/2024 10:30 AM EDT Medication Management [facility] [address] [place] [address] [phone] Lev Smith, PharmD [address] [place] [address] 28704 12/15/2024 10:30 AM EDT Office Visit [facility] [address] [place] [address] 13141 Kera Maria MD [address] [place] [address] 20930 documented as of this encounter Visit Diagnoses Not on filedocumented in this encounter Care Teams Excavating Contractor Relationship Specialty Start Date End Date Kera Maria MD [address] [place] [address] 38947 PCP - General Family Medicine 07/22/18 Lev Smith, PharmD [address] [place] [address] 13245 Pharmacist Internal Medicine 11/12/24 documented as of this encounter
--- OUTSIDE RECORDS SUMMARY | 2024-11-23 12:11 | XMS_ITS | Encounter Summary ---
Author Organization [facility] Address [address] [facility] 7t [place] [address] Care Team Providers Care Home Economist Consumer Service Name Role Phone Kera Maria MD Primary Care Provider [phone] Lev mSith PharmD Unavailable [phone] Encounter Details Date Type Department Care Team (Late st Contact Info) Description 08/09/2022 Abstract [facility] [address] [place] [address] [phone] Kera Maria MD [address] [place] [address] [phone] Social History Tobacco Use Types Packs/Day Years [...] Description 11/26/2024 10:30 AM EDT Medication Management [facility] [address] [place] [address] [phone] Lev Smith, PharmD [address] [place], [place] [phone] 12/15/2024 10:30 AM EDT Office Visit [facility] [address] [place] [address] [phone] Kera Maria MD [address] [place] [address] 70735 documented as of this encounter Visit Diagnoses Not on filedocumented in this encounter Care Teams Home Economist Consumer Service Relationship Specialty Start Date End Date Kera Maria MD [address] [place] [address] [phone] PCP - General Family Medicine 07/22/18 Lev Smith, PharmD [address] [place] [address] 40177 Pharmacist Internal Medicine 11/12/24 documented as of this encounter
--- OUTSIDE RECORDS SUMMARY | 2024-11-23 12:11 | XMS_ITS | Encounter Summary ---
Author Organization [facility] [employer] Address [address] [facility] [address] 7t [place] [address] Care Team Providers Care Banquet Director Name Role Phone Kera Maria MD Primary Care Provider [phone] Lev Smith PharmD Unavailable [phone] Encounter Details Date Type Department Care Team (Late st Contact Info) Description 09/14/2024 Orders Only [facility] [address] [place], [place] [phone] Provider, MD Chey Social History Tobacco Use [...] Description 11/26/2024 10:30 AM EDT Medication Management [facility] [address] [place] [address] [phone] Lev Smith, PharmD [address] [place] [address] 17113 12/15/2024 10:30 AM EDT Office Visit [facility] [address] [place] [address] 24128 Kera Maria MD [address] [place] [address] [phone] documented as of this encounter Procedures Procedure Name Priority Date/Time Associated Diagnosis Comments HM COLONOSCOPY Routine 09/10/2024 1:05 PM EST documented in this encounter Results * Hm Colonoscopy (09/10/2024 1:05 PM EST) Historical Provider HEALTH MAINTENANCE Final Result documented in this encounter Visit Diagnoses Not on filedocumented in this encounter Care Teams Banquet Director Relationship Specialty Start Date End Date Kera Maria MD [address] [place] [address] [phone] PCP - General Family Medicine 07/22/18 Lev Smith, PharmD [address] [place] [address] [phone] Pharmacist Internal Medicine 11/12/24 documented as of this encounter
--- OUTSIDE RECORDS SUMMARY | 2024-11-23 12:11 | XMS_ITS | Encounter Summary ---
Author Organization [employer] Address [address] [facility] 7t [place] [address] Care Team Providers Care Tongue And Groove Machine Setter Name Role Phone Kera Maria MD Primary Care Provider [phone] Lev Smith PharmD Unavailable [phone] Encounter Details Date Type Department Care Team (Late st Contact Info) Description 04/09/2023 Orders Only [facility] [address] [place] [address] Juhi Onofre LPN Social History Tobacco Use [...] Description 11/26/2024 10:30 AM EDT Medication Management [facility] [address] [place] [address] [phone] Lev Smith, PharmD [address] [place], [place] [phone] 12/15/2024 10:30 AM EDT Office Visit [facility] [address] [place] [address] [phone] Kera Maria MD [address] [place] [address] [phone] documented as of this encounter Visit Diagnoses Not on filedocumented in this encounter Care Teams Tongue And Groove Machine Setter Relationship Specialty Start Date End Date Kera Maria MD [address] [place], [place] [phone] PCP - General Family Medicine 07/22/18 Lev Smith, Steven [address] [place] [address] Pharmacist Internal Medicine 11/12/24 documented as of this encounter
--- OUTSIDE RECORDS SUMMARY | 2024-11-23 12:11 | XMS_ITS | Encounter Summary ---
Author Organization [employer] Address 75 [facility] 7t [place] [address] Care Team Providers Care Director Speech Language Name Role Phone Kera Maria MD Primary Care Provider [phone] Lev Smith PharmD Unavailable [phone] Encounter Details Date Type Department Care Team (Late st Contact Info) Description 05/22/2023 Orders Only [facility] CHC MED & PEDS [address] [place] [address] Juhi Onofre LPN Social History Tobacco Use [...] Description 11/26/2024 10:30 AM EDT Medication Management [facility] MEDICINE [address] [place] [phone] Lev Smith, PharmD [address] [place], [place] [phone] 12/15/2024 10:30 AM EDT Office Visit [facility] MEDICINE [address] [place] [phone] Kera Maria MD [address] [place] [address] [phone] documented as of this encounter Visit Diagnoses Not on filedocumented in this encounter Care Teams Director Speech Language Relationship Specialty Start Date End Date Kera Maria MD [address] [place], [place] [phone] PCP - General Family Medicine 07/22/18 Lev Smith, HermilaD [address] [place] [phone] Pharmacist Internal Medicine 11/12/24 documented as of this encounter
--- OUTSIDE RECORDS SUMMARY | 2024-11-23 12:11 | XMS_ITS | Encounter Summary ---
Author Organization [employer] [facility] Address 75 [facility] 7t [place] [address] Care Team Providers Care Rheostat Assembler Name Role Phone Kera Maria MD Primary Care Provider [phone] Lev Smith PharmD Unavailable [phone] Encounter Details Date Type Department Care Team (Late st Contact Info) Description 10/15/2022 Orders Only [facility] MEDICINE [address] [place] [address] [phone] Juhi Onofre LPN Social History Tobacco Use [...] Description 11/26/2024 10:30 AM EDT Medication Management [facility] [address] [place] [phone] Lev Smith, PharmD [address] [place] [address] 12/15/2024 10:30 AM EDT Office Visit [facility]INE [address] [place] [address] [phone] Kera Maria MD [address] [place] [address] [phone] documented as of this encounter Visit Diagnoses Not on filedocumented in this encounter Care Teams Rheostat Assembler Relationship Specialty Start Date End Date Kera Maria MD [address] [place], [place] [phone] PCP - General Family Medicine 07/22/18 Lev Smith PharmD [address] [place] [address] Pharmacist Internal Medicine 11/12/24 documented as of this encounter
--- OUTSIDE RECORDS SUMMARY | 2024-11-23 12:11 | XMS_ITS | Encounter Summary ---
Author Organization [employer] Address 75 [facility] 7t [place] [address] Care Team Providers Care Sealer Aircraft Name Role Phone Kera Maria MD Primary Care Provider [phone] Lev Smith PharmD Unavailable [phone] Encounter Details Date Type Department Care Team (Late st Contact Info) Description 10/15/2022 Orders Only [facility] CHC MED & PEDS [address] [place] [address] Elena Unger LPN Social History Tobacco Use [...] Description 11/26/2024 10:30 AM EDT Medication Management [facility] MEDICINE [address] [place] [phone] Lev Smith, PharmD [address] [place], [place] [phone] 12/15/2024 10:30 AM EDT Office Visit [facility] MEDICINE [address] [place] [address] [phone] Kera Maria MD [address] [place] [address] [phone] documented as of this encounter Visit Diagnoses Not on filedocumented in this encounter Care Teams Sealer Aircraft Relationship Specialty Start Date End Date Kera Maria MD [address] [place], [place] [phone] PCP - General Family Medicine 07/22/18 Lev Smith, Steven [address] [place] [address] Pharmacist Internal Medicine 11/12/24 documented as of this encounter
--- OUTSIDE RECORDS SUMMARY | 2024-11-23 12:11 | XMS_ITS | Encounter Summary ---
Author Organization [employer] Address 75 [facility] 7t [place] [address] Care Team Providers Care Kiln Operator Helper Name Role Phone Kera Maria MD Primary Care Provider [phone] Lev Smith PharmD Unavailable [phone] Encounter Details Date Type Department Care Team (Late st Contact Info) Description 05/01/2023 Orders Only [facility] CHC MED & PEDS [address] [place], [place] [phone] Teresa Sotomayor MD [address] [place] [address] Social History Tobacco Use Types Packs/Day Years [...] Description 11/26/2024 10:30 AM EDT Medication Management [facility] MEDICINE [address] [place] [address] [phone] Lev Smith, PharmD [address] [place] [address] 12/15/2024 10:30 AM EDT Office Visit [facility] MEDICINE [address] [place] [address] [phone] Kera Maria MD [address] [place] [address] documented as of this encounter Procedures Procedure [...] EDT Narrative 05/13/2023 7:18 PM EDT ? [facility] ?[address] ?[place] [address] ? CT Scan Report ? Signed ? Patient: Sofía Penny ?MR#: ?? [id number] ? : 1950 ?Acct:[id number] ? Age/Sex: 72 / F ?ADM Date: 05/13/23 ? Loc: HO.ED ? Attending Dr: ? Ordering Physician: Tammi Andrew ?? Date of Service: 05/13/23 ?? Procedure(s): CT cervical spine wo IV con ?? Accession Number(s): [id number] ? cc: Tammi Andrew; Kera Maria MD [...] 05/13/231914 ? DD/ 1807 ? TD/TT: ? Utility Worker [place]: SUJ ? Procedure Note River, Image - 05/13/[address] [place] [address] [address] Scan Report Signed Patient: Kaylee Penny#: [id number] : 1950cct:[id number] Age/Sex: 72 / FADM Date: 05/13/23 Loc: HO.ED Attending Dr: Ordering Physician: Tammi Andrew Date of Service: 05/13/23 Procedure(s): CT cervical spine wo IV con Accession Number(s): [id number] cc: Tammi Andrew; Kera Maria MD EXAMINATION: [...] MD in OV> 05/13/231914 DD/ 06 TD/TT: Utility Worker [place]: ELMO [facility] External Provider IMG MRI PROCEDURES Edited Result - Final * MR Pelvis w/o Contrast (05/13/2023 6:07 PM EDT) Anatomical Region Laterality Modality Body, Pelvis Magnetic Resonan ce 05/13/2023 6:07 PM EDT Narrative 05/13/2023 7:01 PM EDT ? [facility] ?[address] ?[place] [address] ? CT Scan Report ? Signed ? Patient: Sofía Penny ?MR#: ?? [id number] ? : 1950 ?Acct:[id number] ? Age/Sex: 72 / F ?ADM Date: 05/13/23 ? Loc: HO.ED ? Attending Dr: ? Ordering Physician: Tammi Andrew ?? Date of Service: 05/13/23 ?? Procedure(s): CT pelvis wo IV con ?? Accession Number(s): [id number] ? cc: Tammi Andrew; Kera Maria MD [...] 1858 ? DD/ 1807 ? TD/TT: ? Utility Worker [place]: SS ? Procedure Note River, Image - 05/13/[address] [address] [address] Scan Report Signed Patient: Kaylee Penny#: [id number] : 1Acct:[id number] Age/Sex: 72 / FADM Date: 05/13/23 Loc: HO.ED Attending Dr: Ordering Physician: Tammi Andrew Date of Service: 05/13/23 Procedure(s): CT pelvis wo IV con Accession Number(s): [id number] cc: Tammi Andrew; Kera Maria MD EXAMINATION: [...] in OV> 05/13/23 1858 DD/ 1807 TD/TT: Utility Worker [place]: SS [facility] External Provider IMG MRI PROCEDURES Edited Result - Final * CT Head w/o Contrast (05/13/2023 6:07 PM EDT) Anatomical Region Laterality Modality Head, Neck Computed Tomogra phy 05/13/2023 6:07 PM EDT Narrative 05/13/2023 6:59 PM EDT ? [facility] ?[address] ?[place] [address] ? CT Scan Report ? Signed ? Patient: David Momin,Sofía ?MR#: ?? [id number] ? : 1950 ?Acct:[id number] ? Age/Sex: 72 / F ?ADM Date: 05/13/23 ? Loc: HO.ED ? Attending Dr: ? Ordering Physician: Tammi Andrew ?? Date of Service: 05/13/23 ?? Procedure(s): CT head/brain wo IV con ?? Accession Number(s): [id number] ? cc: Tammi Andrew; Kera Maria MD [...] by Halley Noonan MD in OV> ? 05/13/231855 ? DD/ 06 ? TD/TT: ? Utility Worker [place]: SUJ ? Procedure Note Nayely Holman - 05/13/[address] [address] [address] Scan Report Signed Patient: Kaylee Penny#: [id number] : 1950cct:[id number] Age/Sex: 72 / FADM Date: 05/13/23 Loc: HO.ED Attending Dr: Ordering Physician: Tammi Andrew Date of Service: 05/13/23 Procedure(s): CT head/brain wo IV con Accession Number(s): [id number] cc: Tammi Andrew; Kera Maria MD EXAMINATION: [...] by Halley Noonan MD in OV> 05/13/23 8206 DD/ 1807 TD/TT: Utility Worker [place]: ELMO [facility] External Provider IMG CT PROCEDURES Edited Result - Final * XR Hip right with Pelvis 1 view (05/13/2023 3:58 PM EDT) Anatomical Region Laterality Modality Lower Extremities, Hip Bilateral Radiograp hic Imaging 05/13/2023 3:58 PM EDT Narrative 05/13/2023 5:03 PM EDT ? [facility] ?[address] ?[place] [address] ?XRay Report ? Signed ? Patient: David Momin,Sofía ?MR#: ?? [id number] ? : 1950 ?Acct:[id number] ? Age/Sex: 72 / F ?ADM Date: 05/13/23 ? Loc: HO.ED ? Attending Dr: ? Ordering Physician: Tammi Andrew ?? Date of Service: 05/13/23 ?? Procedure(s): XR hip RT w PEL1V ?? Accession Number(s): [id number] ? cc: Tammi Andrew; Kera Maria MD [...] in OV> ? 05/13/23 1659 ? DD/ ? TD/TT: ? Utility Worker [place]: PD ? Procedure Note River, Nayely - 05/13/2023 [facility] [address] [facility] [place] [address] XRay Report Signed Patient: Kaylee Penny#: [id number] : 1950cct:[id number] Age/Sex: 72 / FADM Date: 05/13/23 Loc: HO.ED Attending Dr: Ordering Physician: Tammi Andrew Date of Service: 05/13/23 Procedure(s): XR hip RT w PEL1V Accession Number(s): [id number] cc: Tammi Andrew; Kera Maria MD EXAMINATION: [...] in OV> 05/13/23 1659 DD/ 1558 TD/TT: Utility Worker [place]: PD [facility] External Provider IMG XR PROCEDURES Final Result documented in this encounter Visit Diagnoses Not on filedocumented in this encounter Care Teams Kiln Operator Helper Relationship Specialty Start Date End Date Kera Maria MD [address] [place] [address] PCP - General Family Medicine 07/22/18 Lev Smith, Steven [address] [place] [address] Pharmacist Internal Medicine 11/12/24 documented as of this encounter
--- OUTSIDE RECORDS SUMMARY | 2024-11-23 12:11 | XMS_ITS | Encounter Summary ---
Author Organization [employer] [facility] Address 75 [facility] 7t [place] [address] Care Team Providers Care Olericulture Teacher Name Role Phone Kera Maria MD Primary Care Provider [phone] Lev Smith PharmD Unavailable [phone] Encounter Details Date Type Department Care Team (Late st Contact Info) Description 01/11/2023 Orders Only [facility] MEDICINE [address] [place] [address] [phone] Juhi Onofre LPN Social History Tobacco Use [...] Description 11/26/2024 10:30 AM EDT Medication Management [facility] MEDICINE [address] [place] [phone] Lev Smith, PharmD [address] [place] [address] 12/15/2024 10:30 AM EDT Office Visit [facility] MEDICINE [address] [place] [address] [phone] Kera Maria MD [address] [place] [address] [phone] documented as of this encounter Visit Diagnoses Not on filedocumented in this encounter Care Teams Olericulture Teacher Relationship Specialty Start Date End Date Kera Maria MD [address] [place], [place] [phone] PCP - General Family Medicine 07/22/18 Lev Smith PharmD [address] [place] [address] Pharmacist Internal Medicine 11/12/24 documented as of this encounter
--- OUTSIDE RECORDS SUMMARY | 2024-11-23 12:11 | XMS_ITS | Encounter Summary ---
Author Organization [employer] Address 75 [facility] 7t [place] [address] Care Team Providers Care Photographs Curator Name Role Phone Kera Maria MD Primary Care Provider [phone] Lev Smith PharmD Unavailable [phone] Reason for Visit * Reason Comments Med Refill Encounter Details Date Type Department Care Team ([facility] st Contact Info) Description 04/17/2024 Refill [facility] MEDICINE [address] [place], [place] [phone] Kera Maria MD [address] [place], [place] [phone] Social History Tobacco Use Types Packs/Day Years [...] Description 11/26/2024 10:30 AM EDT Medication Management [facility] MEDICINE [address] [place] [phone] Lev Smith, Steven [address] [place] [address] 12/15/2024 10:30 AM EDT Office Visit [facility] MEDICINE [address] [place] [address] [phone] Kera Maria MD [address] [place] [phone] documented as of this encounter Visit Diagnoses Not on filedocumented in this encounter Care Teams Photographs Curator Relationship Specialty Start Date End Date Kera Maria MD [address] [place] [phone] PCP - General Family Medicine 07/22/18 Lev Smith, PharmD [address] [place] [phone] Pharmacist Internal Medicine 11/12/24 documented as of this encounter
== END 2024-11-23 10:43 | disposition home or self-care (01) ==
LOC: HO.US 10:42
PROVIDERS: PCP Family Medicine; Visit Provider Nurse Practitioner Family
DX: R32 Unspecified urinary incontinence (principal)
CPT/HCPCS: 76770

== ENCOUNTER → 2024-11-23 10:44 | Outpatient (BNV) | payer OTHER, SELFPAY | PROVIDERS: PCP Family Medicine; Visit Provider Radiology Vascular & Interventional Radiology | DX: R39.14 Feeling of incomplete bladder emptying (principal) | CPT/HCPCS: 76770 ==

== ENCOUNTER 2024-12-07 11:50 | Outpatient (AMB) | payer OTHER, SELFPAY ==
--- NOTE | 2024-12-07 11:52 | MHC.OFFVIS ---
Intake Visit Reasons: 3m/US(set) Intake Note: Pt presents to the office today for a 3 month follow up/US PVR:35ml Economist Research Assistant Services: Economist Research Assistant Present Economist Research Assistant Name: Tulio [id number] Allergies adhesive tape [ADHESIVE TAPE] Allergy (Intermediate, Verified 12/07/24 12:12) RASH-LOCALIZED latex Allergy (Verified 12/07/24 12:12) Rash Medication List - Last Reconciled 12/07/24 by LAURIE Carrion-SAUD alcohol swabs (Alcohol Prep Pads) 1 pad topical TID amlodipine 10 mg PO QAM aspirin 81 mg PO QAM azelastine 2 sprays intranasal BID 30 days blood sugar diagnostic As directed dulaglutide (Trulicity) 0.75 mg subcut QWEEK ezetimibe 10 mg PO BEDTIME famotidine (Acid Equine Vet (famotidine)) 10 mg PO BID fluticasone furoate-vilanterol 200-25 mcg/dose (Breo Ellipta) 1 inh inhalation DAILY 30 days fluticasone furoate-vilanterol 200-25 mcg/dose (Breo Ellipta) 1 inh inhalation DAILY 30 days fluticasone propionate 50 mcg/actuation 2 sprays intranasal DAILY 30 days furosemide 20 mg PO DAILY insulin glargine (Lantus Solostar U-100 Insulin) 16 units subcut QPM insulin glargine (Lantus U-100 Insulin) 10 units subcut QPM lancets As directed loratadine (Claritin) 10 mg PO DAILY 30 days losartan 50 mg PO DAILY magnesium oxide 400 mg PO BEDTIME 30 days metformin ER 750 mg PO BID montelukast 10 mg PO BEDTIME 30 days nitrofurantoin macrocrystal 50 mg PO BEDTIME 90 days rosuvastatin 40 mg PO DAILY simethicone (Gas Relief (simethicone)) 180 mg PO QID solifenacin (Vesicare) 5 mg PO DAILY 30 days trazodone 50 mg PO BEDTIME HPI Comments Details: Sofía is a pleasant 74 year old Irish speaking patient of Dr. Maria. She has a PMH of diabetes, osteoarthritis, migraines, hypercholesteremia, coronary artery disease, obstructive sleep apnea, chronic restrictive lung disease, stress urinary incontinence, and recurrent urinary tract infections. She presents to the office today for follow-up of her lower urinary tract symptoms, recurrent urinary tract infections, and interstitial cystitis. In discussion with the patient today she reports to be doing and feeling well. She denies having had any bothersome urinary issues or concerns since her last office visit here approximately 3 months ago. Recent retroperitoneal ultrasound results were reviewed with the patient today. Bilateral kidneys are normal in size and echotexture. No hydronephrosis or renal calculi noted bilaterally. Urinary bladder is unremarkable. She reports compliance with VESIcare and low-dose Macrobid as prescribed. Patient with a previous history of positive urine cultures as noted and trended below: 03/14 Klebsiella pneumoniae and urine culture 06/14 group B. In office urinalysis results reviewed with the patient today. PVR 35 mL. We discussed at length importance of managing diabetes for improvement in urinary symptoms as well as overall health and well-being. She urinary urgency, urinary frequency, nocturia, dysuria, hematuria, changes to urinary stream, fever, and or chills. She reports be happy with her current voiding parameters on 5 mg of VESIcare. She otherwise denies any issues or concerns at this time. [facility] Medical History Diabetes Osteoarthritis Migraine Elevated cholesterol CAD (coronary artery disease) BART (obstructive sleep apnea) Chronic restrictive lung disease DILSHAD (stress urinary incontinence, female) Recurrent UTI (urinary tract infection) Surgical History H/O esophagogastroduodenoscopy H/O colonoscopy History of bladder suspension procedure S/P CABG x 3 History of tubal ligation History of hysterectomy Family History Father Alcohol abuse Cirrhosis Mother Cervical cancer Paternal Grandfather Stomach cancer Social History Household Members: Children Alcohol intake: never Patient Tobacco Use Status: Never used Tobacco Advance Directives Date on File: 05/14/23 Current occupational status: retired Current occupation: lt handed Review of Systems Const Reports as per HPI Eyes Reports no additional complaints ENT Reports no additional complaints Card Reports as per HPI Resp Reports as per HPI GI Reports no additional complaints Reports as per HPI Musc Reports as per HPI Neuro Reports no additional complaints Psych Reports no additional complaints Endo Reports as per HPI Physical Exam Const General: cooperative, comfortable, no acute distress, well developed, alert and awake Orientation/consciousness: patient oriented x3 Limitations: language barrier HEENT Head: Yes normal to inspection, Yes normocephalic and Yes atraumatic Ears: hearing grossly normal bilaterally Eyes General: appearance normal, both eyes and all related structures Neck Neck: Yes normal visual inspection and Yes trachea midline Chest Chest palpation & inspection: normal inspection of the chest Resp Effort & Inspection: normal respiratory effort and able to speak in complete sentences Cardio Rate: regular rate GI Inspection: Yes normal to inspection General: Yes no CVA tenderness Back/Spine/Pelvis Back: no CVA tenderness Skin General skin exam: no rashes or lesions noted Neuro General: patient oriented x3 Extrem General: Yes normal to inspection Psych Appearance: grossly normal and well kempt Mental Status: mental status grossly normal Speech and movement: Normal speech and movement present and Clear speech present Affect: normal affect Attitude: cooperative Thought process: Normal thought process present Thought content: Normal thought content present Insight: Fair insight present (Psych) Judgement: Fair judgement present (Psych) Office Procedures Post Void Residual Post Residual Void Post Void Residual (PVR): 35 15111-Edoy Void Residual by ultrasound Results AMB Urinalysis, Automated UA Leukoctes 0 Raf/uL Last Edit by Florinda Garcia CMA on 12/07/24 11:59 UA Nitrite Negative Last Edit by Florinda Garcia CMA on 12/07/24 11:59 UA Urobilinogen 0.2 mg/dL Last Edit by Florinda Garcia CMA on 12/07/24 11:59 UA Protein 15 mg/dL Last Edit by Florinda Garcia CMA on 12/07/24 11:59 UA pH 6.5 Last Edit by Florinda Garcia CMA on 12/07/24 11:59 UA Blood 0 [place]/uL Last Edit by Florinda Garcia CMA on 12/07/24 11:59 UA Specific [place] 1.015 Last Edit by Florinda Garcia CMA on 12/07/24 11:59 UA Ketone Negative Last Edit by Florinda Garcia CMA on 12/07/24 11:59 UA Bilirubin 0 mg/dL Last Edit by Florinda Garcia CMA on 12/07/24 11:59 UA Glucose 1000 mg/dL Last Edit by Florinda Garcia CMA on 12/07/24 11:59 Results Reviewed Results Reviewed: Laboratory Last Values Urine pH (Auto) 6.5 12/07/24 11:58 Specific [place] (Auto) 1.015 12/07/24 11:58 Urine Protein (Auto) 15 mg/dL 12/07/24 11:58 Glucose (UA)(Auto) 1000 mg/dL 12/07/24 11:58 Urine Ketones (Auto) Negative 12/07/24 11:58 Urine Blood (Auto) 0 [place]/uL 12/07/24 11:58 Urine Nitrite (Auto) Negative 12/07/24 11:58 Urine Bilirubin (Auto) 0 mg/dL 12/07/24 11:58 Urine Urobilinogen (Auto) 0.2 mg/dL 12/07/24 11:58 Leukocyte Esterase (Auto) 0 Raf/uL 12/07/24 11:58 Date of Service: 11/23/24 Procedure(s): US retroperitoneal comp Findings: Right kidney normal size and echotexture, 10.9 cm length. Left kidney normal size and echotexture, 10.1 cm length. No hydronephrosis of either kidney. Normal color Doppler. Urinary bladder is unremarkable. Prevoid volume 721 mL. Postvoid volume 220 mL. Bilateral ureteral jets are visualized. IMPRESSION: 1. Normal kidneys. 2. Moderate postvoid residual within the bladder. Assessment & Plan Assessment & Plan (1) Interstitial cystitis: Code(s): N30.10 - Interstitial cystitis (chronic) without hematuria Category: Medical (2) Incontinence: Code(s): R32 - Unspecified urinary incontinence Category: Medical (3) Recurrent UTI (urinary tract infection): Code(s): N39.0 - Urinary tract infection, site not specified Category: Medical Plan In office urinalysis results reviewed with the patient today; as noted above. PVR 35 mL. Recent retroperitoneal ultrasound results reviewed with the patient today; as noted above. She currently denies any bothersome urinary issues or concerns. She reports be happy with current voiding parameters on 5 mg of VESIcare. Continue VESIcare and Macrobid as prescribed. We discussed importance of management and diabetes for improvement lower urinary tract symptoms as well as overall health and well-being. We discussed bladder triggers/irritants. Discussed UTI prevention with D mannose supplement, vitamin-C, increasing fluid intake, behavioral therapy with timed voiding, perineal hygiene and postcoital voiding, and management of constipation with stool softeners and increased fiber intake. Follow-up in 6 months with PVR; or sooner with any issues, concerns, and or questions. Orders: Orders AMB Urinalysis Automated Today R32 - Unspecified urinary incontinence AMB Post Void Residual by ultrasound Today R32 - Unspecified urinary incontinence Medications: Changed From solifenacin (Vesicare) 5 mg PO DAILY 30 days 30 tabs 3RF To solifenacin (Vesicare) 5 mg PO DAILY 90 days 90 tabs 3RF Refilled nitrofurantoin macrocrystal must administer with a meal/food 50 mg PO BEDTIME 90 days 90 caps 1RF N39.0 - Urinary tract infection, site not specified Patient Instructions: The patient had an opportunity to ask questions regarding the treatment plan. All questions were answered. Physical exam, labs, and imaging were discussed and reviewed in detail. As well as risks, benefits, and discussion of treatment choices. No major barriers to understanding were identified. The patient expressed understanding and agreement with the above treatment plan. The patient was made aware they should contact our office by phone for worsening of their current condition, the appearance of new symptoms, or with any questions or concerns. Compliance is encouraged with any medications and follow up testing that is ordered. It is a privilege to be allowed the opportunity to participate in? your urological care.? Again, if you have any questions or concerns If you have any questions or concerns please do not hesitate to contact me. The office is [phone]. This note is constructed using voice recognition software. While every effort has been made to ensure accuracy local area network administrator errors may have been included. Yours sincerely, HARIS Carrion Coding Level of Care Code Est Pt Level 3 (45150) Diagnoses Interstitial cystitis N30.10 Incontinence R32 Recurrent UTI (urinary tract infection) N39.0 CPT Codes Post Residual Void - PVR CPT Code: 84085-Ld[place] Void Residual by ultrasound ([id number])
--- OUTSIDE RECORDS SUMMARY | 2024-12-07 12:31 | XMS_ITS | Encounter Summary ---
Author Organization [employer] Address [address] [facility] 7t [place] [address] Care Team Providers Care Soft Water Mechanic Name Role Phone Kera Maria MD Primary Care Provider [phone] Lve Smith PharmD Unavailable [phone] Encounter Details Date Type Department Care Team (Late st Contact Info) Description 08/09/2022 Abstract [facility] [address] [place] [address] [phone] Kera Maria MD [address] [place] [address] [phone] Social History Tobacco Use Types Packs/Day Years [...] Care Team (Late st Contact Info) Description 12/15/2024 10:30 AM EDT Office Visit [facility] [address] [place] [address] [phone] Kera Maria MD [address] [place], [place] [phone] 01/28/2025 10:30 AM EDT Medication Management [facility] [address] [place] [address] [phone] Lev Smith, PharmD [address] [place] [address] documented as of this encounter Procedures Procedure Name Priority Date/Time Associated Diagnosis Comments MAMMOGRAPHY Routine 08/06/2022 documented in this encounter Results * Mammography (08/06/2022) Mammogram perform Anatomical Region Laterality Modality Other Historical Provider HEALTH MAINTENANCE Final Result documented in this encounter Visit Diagnoses Not on filedocumented in this encounter Care Teams Soft Water Mechanic Relationship Specialty Start Date End Date Kera Maria MD [address] [place] [address] PCP - General Family Medicine 07/22/18 Lev Smith, HermilaD [address] [place] [address] Pharmacist Internal Medicine 11/12/24 documented as of this encounter
--- OUTSIDE RECORDS SUMMARY | 2024-12-07 12:31 | XMS_ITS | Clinical Summary ---
Demographics Address [address] [facility] [address] [place] [address] Mobile Phone Home Phone Preferred Language es Marital Status Unknown Pentecostalism Affiliation Unknown Race Unknown Ethnic Group Unknown Author Organization [facility] Address [address] [place] [address] [place] [address] Phone Care Team Providers Care Weatherization Field Technician Name Role Phone Kera Maria MD Primary Care Provider [phone] Allergies No known active allergies Medications aspirin [...] 05/25/2024, , 08/03/2020, Additional history exists Insurance [employer] ([id number]) [employer] ([id number]) Care Teams Weatherization Field Technician Relationship Specialty Start Date End Date Kera Maria MD PCP - General 08/01/20
--- OUTSIDE RECORDS SUMMARY | 2024-12-07 12:31 | XMS_ITS | Encounter Summary ---
Author Organization [employer] Address [address] [facility] 7t [place] [address] Care Team Providers Care Experimental Mechanic Electrical Name Role Phone Kera Maria MD Primary Care Provider [phone] Lev Smith PharmD Unavailable [phone] Encounter Details Date Type Department Care Team (Late st Contact Info) Description 05/01/2023 Orders Only [facility] [address] [place] [address] Teresa Sotomayor MD [address] [place] [address] Social History Tobacco Use Types Packs/Day Years [...] Description 12/15/2024 10:30 AM EDT Office Visit [facility] [address] [place] [address] [phone] Kera Maria MD [address] [place], [place] [phone] 01/28/2025 10:30 AM EDT Medication Management [facility] [address] [place] [address] [phone] Lev Smith, PharmD 230 [facility] [place] [address] documented as of this encounter Procedures Procedure [...] EDT Narrative 05/13/2023 7:18 PM EDT ? [facility] ?[address] ?[place] [address] ? CT Scan Report ? Signed ? Patient: Sofía Penny ?MR#: ?? [id number] ? : 1950 ?Acct:[id number] ? Age/Sex: 72 / F ?ADM Date: 05/13/23 ? Loc: HO.ED ? Attending Dr: ? Ordering Physician: Tammi Andrew ?? Date of Service: 05/13/23 ?? Procedure(s): CT cervical spine wo IV con ?? Accession Number(s): [id number] ? cc: Tammi Andrew; Kera Maria MD [...] 05/13/231914 ? DD/ 1807 ? TD/TT: ? Lathe Puller: SUJ ? Procedure Note River, Image - 05/13/[address] [place] [address] [address] Scan Report Signed Patient: Kaylee Penny#: [id number] : 1950cct:[id number] Age/Sex: 72 / FADM Date: 05/13/23 Loc: HO.ED Attending Dr: Ordering Physician: Tammi Andrew Date of Service: 05/13/23 Procedure(s): CT cervical spine wo IV con Accession Number(s): [id number] cc: Tammi Andrew; Kera Maria MD EXAMINATION: [...] MD in OV> 05/13/231914 DD/ 06 TD/TT: Lathe Puller: ELMO [facility] External Provider IMG MRI PROCEDURES Edited Result - Final * MR Pelvis w/o Contrast (05/13/2023 6:07 PM EDT) Anatomical Region Laterality Modality Body, Pelvis Magnetic Resonan ce 05/13/2023 6:07 PM EDT Narrative 05/13/2023 7:01 PM EDT ? [facility] ?[address] ?[place] [address] ? CT Scan Report ? Signed ? Patient: Sofía Penny ?MR#: ?? [id number] ? : 1950 ?Acct:[id number] ? Age/Sex: 72 / F ?ADM Date: 05/13/23 ? Loc: HO.ED ? Attending Dr: ? Ordering Physician: Tammi Andrew ?? Date of Service: 05/13/23 ?? Procedure(s): CT pelvis wo IV con ?? Accession Number(s): [id number] ? cc: Tammi Andrew; Kera Maria MD [...] 1858 ? DD/ 1807 ? TD/TT: ? Lathe Puller: SS ? Procedure Note Nayely Holman - 05/13/[address] [address] [address] Scan Report Signed Patient: Kaylee Penny#: [id number] : 1Acct:[id number] Age/Sex: 72 / FADM Date: 05/13/23 Loc: HO.ED Attending Dr: Ordering Physician: Tammi Andrew Date of Service: 05/13/23 Procedure(s): CT pelvis wo IV con Accession Number(s): [id number] cc: Tammi Andrew; Kera Maria MD EXAMINATION: [...] in OV> 05/13/23 1858 DD/ 1807 TD/TT: Lathe Puller: SS [facility] External Provider IMG MRI PROCEDURES Edited Result - Final * CT Head w/o Contrast (05/13/2023 6:07 PM EDT) Anatomical Region Laterality Modality Head, Neck Computed Tomogra phy 05/13/2023 6:07 PM EDT Narrative 05/13/2023 6:59 PM EDT ? [facility] ?[address] ?[place] [address] ? CT Scan Report ? Signed ? Patient: David Momin,Sofía ?MR#: ?? [id number] ? : 1950 ?Acct:[id number] ? Age/Sex: 72 / F ?ADM Date: 05/13/23 ? Loc: HO.ED ? Attending Dr: ? Ordering Physician: Tammi Andrew ?? Date of Service: 05/13/23 ?? Procedure(s): CT head/brain wo IV con ?? Accession Number(s): [id number] ? cc: Tammi Andrew; Kera Maria MD [...] MD ? Signed By: ?<Electronically signed by Hlaley Noonan MD in OV> ? 05/13/236 ? DD/ 06 ? TD/TT: ? Lathe Puller: SUJ ? Procedure Note River, Nayely - 05/13/[address] [address] [address] Scan Report Signed Patient: Kaylee Penny#: [id number] : 1950cct:[id number] Age/Sex: 72 / FADM Date: 05/13/23 Loc: HO.ED Attending Dr: Ordering Physician: Tammi Andrew Date of Service: 05/13/23 Procedure(s): CT head/brain wo IV con Accession Number(s): [id number] cc: Tammi Andrew; Kera Maria MD EXAMINATION: [...] in OV> 05/13/23 1856 DD/ 1807 TD/TT: Lathe Puller: ELMO [facility] External Provider IMG CT PROCEDURES Edited Result - Final * XR Hip right with Pelvis 1 view (05/13/2023 3:58 PM EDT) Anatomical Region Laterality Modality Lower Extremities, Hip Bilateral Radiograp hic Imaging 05/13/2023 3:58 PM EDT Narrative 05/13/2023 5:03 PM EDT ? [facility] ?[address] ?[place] [address] ?XRay Report ? Signed ? Patient: David Momin,Sofía ?MR#: ?? [id number] ? : 1950 ?Acct:[id number] ? Age/Sex: 72 / F ?ADM Date: 05/13/23 ? Loc: HO.ED ? Attending Dr: ? Ordering Physician: Tammi Andrew ?? Date of Service: 05/13/23 ?? Procedure(s): XR hip RT w PEL1V ?? Accession Number(s): [id number] ? cc: Tammi Andrew; Kera Maria MD [...] by Oscar Oseguera MD in OV> ? 05/13/239 ? DD/ 1558 ? TD/TT: ? Lathe Puller: PD ? Procedure Note Nayely Holman - 05/13/2023 [facility] [address] [facility] [place] [address] XRay Report Signed Patient: Kaylee Penny#: [id number] : 1950cct:[id number] Age/Sex: 72 / FADM Date: 05/13/23 Loc: HO.ED Attending Dr: Ordering Physician: Tammi Andrew Date of Service: 05/13/23 Procedure(s): XR hip RT w PEL1V Accession Number(s): [id number] cc: Tammi Andrew; Kera Maria MD EXAMINATION: [...] in OV> 05/13/23 1659 DD/ 1558 TD/TT: Lathe Puller: PD [facility] External Provider IMG XR PROCEDURES Final Result documented in this encounter Visit Diagnoses Not on filedocumented in this encounter Care Teams Experimental Mechanic Electrical Relationship Specialty Start Date End Date Kera Maria MD [address] [place] [address] PCP - General Family Medicine 07/22/18 Lev Smith, Steven [address] [place] [address] Pharmacist Internal Medicine 11/12/24 documented as of this encounter
--- OUTSIDE RECORDS SUMMARY | 2024-12-07 12:31 | XMS_ITS | Encounter Summary ---
Author Organization [employer] Address [address] [facility] 7t [place] [address] Care Team Providers Care Dockmaster Name Role Phone Kera Maria MD Primary Care Provider [phone] Lev Smith PharmD Unavailable [phone] Encounter Details Date Type Department Care Team (Late st Contact Info) Description 05/22/2023 Orders Only [facility] [address] [place], [place] [phone] Juhi Onofre LPN Social History Tobacco Use [...] Description 12/15/2024 10:30 AM EDT Office Visit [facility] [address] [place] [address] [phone] Kera Maria MD [address] [place] [address] [phone] 01/28/2025 10:30 AM EDT Medication Management [facility] [address] [place] [address] [phone] Lev Smith, PharmD [address] [place], [place] [phone] documented as of this encounter Visit Diagnoses Not on filedocumented in this encounter Care Teams Dockmaster Relationship Specialty Start Date End Date Kera Maria MD [address] [place] [address] PCP - General Family Medicine 07/22/18 Lev Smith, Steven [address] [place] [address] Pharmacist Internal Medicine 11/12/24 documented as of this encounter
--- OUTSIDE RECORDS SUMMARY | 2024-12-07 12:31 | XMS_ITS | Encounter Summary ---
Author Organization [employer] Address [address] [facility] 7t [place] [address] Care Team Providers Care Sales Commissions Analyst Name Role Phone Kera Maria MD Primary Care Provider [phone] Lev Smith PharmD Unavailable [phone] Reason for Referral * Consultation (Urgent) - Pending Review Specialty Diagnoses / Procedures Referred By Contac t Referred To Contact Pharmacy Diagnoses Type 2 diabetes mellitus with hyperglycemia, with long-term current use of insulin (CMS/HCC) Essential hypertension Kera Maria MD [address] [place] [address] Phone: tel: fax: Referral ID Status Reason Start Date Expiration Date Visits Requested Visits Authorized [id number] Pending Review Consult and Treat 10/19/2024 10/19/2025 6 6 Encounter Details Date Type Department Care Team (Late st Contact Info) Description 10/19/2024 Orders Only [facility] [address] [place] [address] [phone] Kera Maria MD [address] [place] [address] [phone] Type 2 diabetes mellitus with hyperglycemia, with [...] Description 12/15/2024 10:30 AM EDT Office Visit [facility] [address] [place] [phone] Kera Maria MD [address] [place] [address] 01/28/2025 10:30 AM EDT Medication Management [facility] [address] [place] [phone] Lev Smith, HermilaD 230 [place] [address] Scheduled Referrals Name Type Priority Associated Diagnoses Orde r Schedule Referral to Pharmacy CDTM Outpatient Referral Urgent Type 2 diabetes mellitus with hyperglycemia, with long-term current use of insulin ([facility]) Essential hypertension Ordered: 10/19/2024 documented as of this encounter Visit Diagnoses Diagnosis Type 2 diabetes mellitus with hyperglycemia, with long-term current use of insulin ([facility])- Primary Essential hypertension Unspecified essential hypertension documented in this encounter Care Teams Sales Commissions Analyst Relationship Specialty Start Date End Date Kera Maria MD [address] [place] [address] PCP - General Family Medicine 07/22/18 Lev Smith, Steven [address] [place] [address] Pharmacist Internal Medicine 11/12/24 documented as of this encounter
--- OUTSIDE RECORDS SUMMARY | 2024-12-07 12:31 | XMS_ITS | Encounter Summary ---
Author Organization [employer] Address [address] [facility] 7t [place] [address] Care Team Providers Care Still Operator Gin Name Role Phone Kera Maria MD Primary Care Provider [phone] Lev Smith PharmD Unavailable [phone] Encounter Details Date Type Department Care Team (Late st Contact Info) Description 03/11/2023 Orders Only [facility] [address] [place], [place] [phone] Elena Unger LPN Social History Tobacco Use [...] Description 12/15/2024 10:30 AM EDT Office Visit [facility] [address] [place] [phone] Kera Maria MD [address] [place] [address] [phone] 01/28/2025 10:30 AM EDT Medication Management [facility] [address] [place] [address] [phone] Lev Smith, PharmD 230 [place], [place] [phone] documented as of this encounter Visit Diagnoses Not on filedocumented in this encounter Care Teams Still Operator Gin Relationship Specialty Start Date End Date Kera Maria MD 230 [place] [address] PCP - General Family Medicine 07/22/18 Lev Smith PharmD 230 [place] [address] Pharmacist Internal Medicine 11/12/24 documented as of this encounter
--- OUTSIDE RECORDS SUMMARY | 2024-12-07 12:31 | XMS_ITS | Encounter Summary ---
Author Organization [employer] Address [address] [facility] [address] 7t [place] [address] Care Team Providers Care Stud Beef Cattle Farmer Name Role Phone Kera Maria MD Primary Care Provider [phone] Lev Smith PharmD Unavailable [phone] Encounter Details Date Type Department Care Team (Late st Contact Info) Description 09/14/2024 Orders Only [facility] [address] [place], [place] [phone] ProviderChey MD Social History Tobacco Use Types Packs/Day Years [...] Description 12/15/2024 10:30 AM EDT Office Visit [facility] [address] [place] [phone] Kera Maria MD [address] [place] [phone] 01/28/2025 10:30 AM EDT Medication Management [facility] [address] [place] [address] [phone] Lev Smith, Steven [address] [place] [phone] documented as of this encounter Procedures Procedure Name Priority Date/Time Associated Diagnosis Comments HM COLONOSCOPY Routine 09/10/2024 1:05 PM EST documented in this encounter Results * Hm Colonoscopy (09/10/2024 1:05 PM EST) Historical Provider HEALTH MAINTENANCE Final Result documented in this encounter Visit Diagnoses Not on filedocumented in this encounter Care Teams Stud Beef Cattle Farmer Relationship Specialty Start Date End Date Kera Maria MD [address] [place] [address] [phone] PCP - General Family Medicine 07/22/18 Lev Smith, HermilaD [address] [place] [address] [phone] Pharmacist Internal Medicine 11/12/24 documented as of this encounter
--- OUTSIDE RECORDS SUMMARY | 2024-12-07 12:31 | XMS_ITS | Encounter Summary ---
Author Organization [employer] Address [address] [facility] 7t [place] [address] Care Team Providers Care Senior Mortgage Loan Processor Name Role Phone Kera Maria MD Primary Care Provider [phone] Lev Smith PharmD Unavailable [phone] Encounter Details Date Type Department Care Team (Late st Contact Info) Description 10/15/2022 Orders Only [facility]S 505 [place] [address] Elena Unger LPN Social History Tobacco Use [...] Description 12/15/2024 10:30 AM EDT Office Visit [facility] [address] [place] [address] Kera Maria MD [address] [place] [address] [phone] 01/28/2025 10:30 AM EDT Medication Management [facility] [address] [place] [address] [phone] Lev Smith, PharmD [address] [place], [place] [phone] documented as of this encounter Visit Diagnoses Not on filedocumented in this encounter Care Teams Senior Mortgage Loan Processor Relationship Specialty Start Date End Date Kera Maria MD [address] [place] [address] PCP - General Family Medicine 07/22/18 Lev Smith PharmD [address] [place] [address] Pharmacist Internal Medicine 11/12/24 documented as of this encounter
--- OUTSIDE RECORDS SUMMARY | 2024-12-07 12:31 | XMS_ITS | Encounter Summary ---
Author Organization [employer] Address [address] [facility] 7t [place] [address] Care Team Providers Care Mice Raiser Name Role Phone Kera Maria MD Primary Care Provider [phone] Lev Smith PharmD Unavailable [phone] Encounter Details Date Type Department Care Team (Late st Contact Info) Description 10/15/2022 Orders Only [facility] [address] [place] [address] [phone] Juhi Onofre LPN Social History Tobacco Use [...] Description 12/15/2024 10:30 AM EDT Office Visit [facility] [address] [place] [address] [phone] Kera Maria MD [address] [place] [address] [phone] 01/28/2025 10:30 AM EDT Medication Management [facility] [address] [place] [address] [phone] Lev Smith, PharmD [address] [place] [address] [phone] documented as of this encounter Visit Diagnoses Not on filedocumented in this encounter Care Teams Mice Raiser Relationship Specialty Start Date End Date Kera Maria MD 230 [place], [place] [phone] PCP - General Family Medicine 07/22/18 Lev Smith PharmD 230 [place] [address] Pharmacist Internal Medicine 11/12/24 documented as of this encounter
--- OUTSIDE RECORDS SUMMARY | 2024-12-07 12:31 | XMS_ITS | Encounter Summary ---
Author Organization [employer] Address [address] [facility] 7t [place] [address] Care Team Providers Care Set Up And Charger Name Role Phone Kera Maria MD Primary Care Provider [phone] Lev Smith PharmD Unavailable Reason for Visit * Reason Comments Med Refill Encounter Details Date Type Department Care Team ([facility] st Contact Info) Description 04/17/2024 Refill [facility] 230 [place], [place] [phone] Kera Maria MD 230 [place], [place] [phone] Social History Tobacco Use Types Packs/Day Years [...] Description 12/15/2024 10:30 AM EDT Office Visit [facility] [address] [place] [phone] Kera Maria MD [address] [place] [phone] 01/28/2025 10:30 AM EDT Medication Management [facility] [address] [place] [phone] Lev Smith, PharmFrancisco [address] [place] [phone] documented as of this encounter Visit Diagnoses Not on filedocumented in this encounter Care Teams Set Up And Charger Relationship Specialty Start Date End Date Kera Maria MD [address] [place] [address] PCP - General Family Medicine 07/22/18 Lev Smith, PharmD [address] [place] [phone] Pharmacist Internal Medicine 11/12/24 documented as of this encounter
--- OUTSIDE RECORDS SUMMARY | 2024-12-07 12:31 | XMS_ITS | Encounter Summary ---
Author Organization [employer] Address [address] [facility] 7t [place] [address] Care Team Providers Care Cork Painter And Grader Name Role Phone Kera Maria MD Primary Care Provider [phone] Lev Smith PharmD Unavailable [phone] Reason for Referral * Imaging (Routine) - Closed Specialty Diagnoses / Procedures Referred By Contac t Referred To Contact Radiology Diagnoses Closed fracture of single pubic ramus of pelvis, right, initial encounter (CMS/[facility]) Postmenopause Osteoporosis screening declined Procedures BD DEXA Axial Kera Maria MD [address] [place] [address] Phone: tel: fax: [address] Phone: tel: fax: Referral ID Status Reason Start Date Expiration Date Visits Re quested Visits Authorized [id number] Closed 08/26/2023 08/25/2024 1 1 Encounter Details Date Type Department Care Team (Late st Contact Info) Description 08/26/2023 Orders Only [facility] [address] [place] [address] [phone] Kera Maria MD [address] [place], [place] [phone] Closed fracture of single pubic ramus of pelvis, right, initial encounter (CMS/[facility]) (Primary Dx); Postmenopause; Osteoporosis screening declined Social [...] Description 12/15/2024 10:30 AM EDT Office Visit [facility] [address] [place] [phone] Kera Maria MD [address] [place] [phone] 01/28/2025 10:30 AM EDT Medication Management [facility] [address] [place] [phone] Lev Smith, HermilaD [address] [place] [phone] documented as of this encounter Procedures Procedure Name Priority Date/Time Associated Diagnosis Comments BD DEXA AXIAL Routine 09/13/2023 9:20 AM EST Closed fracture of single pubic ramus of pelvis, right, initial encounter ([facility]/HCC) Postmenopause Osteoporosis screening declined documented in this encounter Results * BD DEXA Axial (09/13/2023 9:20 AM EST) Anatomical Region Laterality Modality Body Radiographic Collette ging 09/13/2023 9:20 AM EST Narrative 09/13/2023 5:44 PM EST ? [facility] [place] ? [address] ?[place] [address] ? Mammography Report ? Signed ? Patient: Sofía Penny ?MR#: ?? [id number] ? : 1950 ?Acct:[id number] ? Age/Sex: 73 / F ?ADM Date: 09/13/23 ? Loc: HO.MAMMO ? Attending Dr: Kera Maria MD ? Ordering Physician: Kera Maria MD ?Results: ? Date of Service: 09/13/23 ?Follow Up: ? Procedure(s): XR DEXA axial skeleton ?? Accession Number(s): [id number] ? cc: Kera Maria MD ? EXAMINATION: ?? BONE DENSITOMETRY ? CLINICAL INDICATION: ?? Postmenopausal. ? COMPARISON: ?? This is the patient's baseline examination. ? TECHNIQUE: Using a [employer] DXA System (software version: ?? 13.1) manufactured by [employer], dual-energy x-ray absorptiometry ?? was performed of [...] ?09/13/231739 ? DD/ 0920 ? TD/TT: ? Director Pediatric: DOROTHEA ? Procedure Note Donuzmater, Image - 09/13/2023 [place] [facility] [address] [place], [place] [address] Mammography Report Signed Patient: Kaylee Penny#: [id number] : 1950cct:[id number] Age/Sex: 73 / FADM Date: 09/13/23 Loc: NICKIE Attending Dr: Kera Maria MD Ordering Physician: Kera Mariaults: Date of Service: 09/13/23Follow Up: Procedure(s): XR DEXA axial skeleton Accession Number(s): [id number] cc: Kera Maria MD EXAMINATION: BONE DENSITOMETRY CLINICAL INDICATION: Postmenopausal. COMPARISON: This is the patient's baseline examination. TECHNIQUE: Using a [employer] DXA System (software version: 13.1) manufactured by [employer], dual-energy x-ray absorptiometry was performed of the [...] in OV> 09/13/23 1740 DD/ 0920 TD/TT: Director Pediatric: DOROTHEA Kera Maria MD IMG DXA PROCEDURES Final Result documented in this encounter Visit Diagnoses Diagnosis Closed fracture of single pubic ramus of pelvis, right, initial encounter ([facility])- Primary Postmenopause Asymptomatic postmenopausal status (age-related) (natural) Osteoporosis screening declined documented in this encounter Care Teams Cork Painter And Grader Relationship Specialty Start Date End Date Kera Maria MD [address] [place] [address] PCP - General Family Medicine 07/22/18 Lev Smith, HermilaD [address] [place] [address] Pharmacist Internal Medicine 11/12/24 documented as of this encounter
--- OUTSIDE RECORDS SUMMARY | 2024-12-07 12:31 | XMS_ITS | Encounter Summary ---
Author Organization [employer] Address [address] [facility] 7t [place] [address] Care Team Providers Care Museum Librarian Name Role Phone Kera Maria MD Primary Care Provider [phone] Lev Smith PharmD Unavailable [phone] Encounter Details Date Type Department Care Team (Late st Contact Info) Description 08/09/2022 Abstract [facility] [address] [place] [address] [phone] Kera Maria MD [address] [place] [address] [phone] Social History Tobacco Use Types Packs/Day Years [...] Description 12/15/2024 10:30 AM EDT Office Visit [facility] [address] [place] [address] [phone] Kera Maria MD [address] [place], [place] [phone] 01/28/2025 10:30 AM EDT Medication Management [facility] [address] [place] [address] [phone] Lev Smith, PharmD [address] [place] [address] documented as of this encounter Visit Diagnoses Not on filedocumented in this encounter Care Teams Museum Librarian Relationship Specialty Start Date End Date Kera Maria MD [address] [place] [phone] PCP - General Family Medicine 07/22/18 Lev Smith, HermilaD [address] [place] [address] [phone] Pharmacist Internal Medicine 11/12/24 documented as of this encounter
--- OUTSIDE RECORDS SUMMARY | 2024-12-07 12:31 | XMS_ITS | Encounter Summary ---
Author Organization [employer] Address [address] [facility] 7t [place] [address] Care Team Providers Care Painter Railroad Car Name Role Phone Kera Maria MD Primary Care Provider [phone] Lev Smith PharmD Unavailable [phone] Encounter Details Date Type Department Care Team (Late st Contact Info) Description 04/09/2023 Orders Only [facility] [address] [place], [place] [phone] Juhi Onofre LPN Social History Tobacco Use [...] 12/15/2024 10:30 AM EDT Office Visit [facility] [address] [place] [address] [phone] Kera Maria MD [address] [place] [address] [phone] 01/28/2025 10:30 AM EDT Medication Management [facility] [address] [place] [address] [phone] Lev Smith, PharmD [address] [place], [place] [phone] documented as of this encounter Visit Diagnoses Not on filedocumented in this encounter Care Teams Painter Railroad Car Relationship Specialty Start Date End Date Kera Maria MD [address] [place] [address] PCP - General Family Medicine 07/22/18 Lev Smith PharmD [address] [place] [address] Pharmacist Internal Medicine 11/12/24 documented as of this encounter
--- OUTSIDE RECORDS SUMMARY | 2024-12-07 12:31 | XMS_ITS | Encounter Summary ---
Author Organization [employer] Address [address] [facility] 7t [place] [address] Care Team Providers Care Repair Table Operator Name Role Phone Kera Maria MD Primary Care Provider [phone] Lev Smith PharmD Unavailable [phone] Reason for Referral * Consultation (Routine) - Pending Review Specialty Diagnoses / Procedures Referred By Contac t Referred To Contact Pharmacy Diagnoses Type 2 diabetes mellitus with hyperglycemia, with long-term current use of insulin (CMS/HCC) Essential hypertension Krea Maria MD [address] [place] [phone] Phone: tel: fax: Referral ID Status Reason Start Date Expiration Date Visits Requested Visits Authorized [id number] Pending Review Consult and Treat 10/16/2024 10/16/2025 6 6 Encounter Details Date Type Department Care Team (Late st Contact Info) Description 10/16/2024 Orders Only [facility] [address] [place] [address] [phone] Kera Maria MD [address] [place] [address] [phone] Type 2 diabetes mellitus with hyperglycemia, with [...] Description 12/15/2024 10:30 AM EDT Office Visit [facility] [address] [place] [phone] Kera Maria MD [address] [place] [phone] 01/28/2025 10:30 AM EDT Medication Management [facility] [address] [place] [phone] Lev Smith, HermilaD [address] [place] [phone] Scheduled Referrals Name Type Priority Associated Diagnoses Orde r Schedule Referral to Pharmacy CDTM Outpatient Referral Routine Type 2 diabetes mellitus with hyperglycemia, with long-term current use of insulin ([facility]) Essential hypertension Ordered: 10/16/2024 documented as of this encounter Visit Diagnoses Diagnosis Type 2 diabetes mellitus with hyperglycemia, with long-term current use of insulin ([facility])- Primary Essential hypertension Unspecified essential hypertension Dyslipidemia Other and unspecified hyperlipidemia documented in this encounter Care Teams Repair Table Operator Relationship Specialty Start Date End Date Kera Maria MD [address] [place] [phone] PCP - General Family Medicine 07/22/18 Lev Smith, Steven [address] [place] [phone] Pharmacist Internal Medicine 11/12/24 documented as of this encounter
--- OUTSIDE RECORDS SUMMARY | 2024-12-07 12:31 | XMS_ITS | Encounter Summary ---
Author Organization [employer] Address [address] [facility] [address] [place] [address] Care Team Providers Care Modeling And Simulation Analyst Name Role Phone Kera Maria MD Primary Care Provider [phone] Lev Smith PharmD Unavailable [phone] Reason for Visit * Reason Comments Med Refill Encounter Details Date Type Department Care Team (Late st Contact Info) Description 07/04/2023 Refill [facility] [address] [place], [place] [phone] Kera Maria MD [address] [place], [place] [phone] Social History Tobacco Use Types Packs/Day Years [...] 12/15/2024 10:30 AM EDT Office Visit [facility] [address] [place] [phone] Kera Maria MD [address] [place] [phone] 01/28/2025 10:30 AM EDT Medication Management [facility] [address] [place] [phone] Lev Smith, Steven [address] [place] [phone] documented as of this encounter Visit Diagnoses Not on filedocumented in this encounter Care Teams Modeling And Simulation Analyst Relationship Specialty Start Date End Date Kera Maria MD [address] [place] [phone] PCP - General Family Medicine 07/22/18 Lev Smith, PharmD [address] [place] [phone] Pharmacist Internal Medicine 11/12/24 documented as of this encounter
--- OUTSIDE RECORDS SUMMARY | 2024-12-07 12:31 | XMS_ITS | Clinical Summary ---
Demographics Address [address] [facility] [address] [place] [address] Mobile Phone Work Phone Home Phone Preferred Language es Marital Status Gnosticist Affiliation Unknown Race Other Race Ethnic Group Unknown Author Organization [employer] Address [address] [facility] [address] [place] [address] Care Team Providers Care Solderer Production Line Name Role Phone Kera Maria MD Primary Care Provider [phone] Lev Smith PharmD Unavailable [phone] Allergies Active Allergy Reactions Criticality Noted Date [...] AT BEDTIME TAKE WITH FOOD 023 Active riboflavin (vitamin B2) 100 mg tablet tablet 023 Active Simethicone Ultra Strength 180 MG capsule 023 Active Lancets (OneTouch Delica Plus [id number]) miscIndications: Type 2 diabetes mellitus with other specified complication, unspecified whether penitentiary insulin use ([facility]) TEST BLOOD SUGAR 3 TIMES A DAY 100 each 11 024 Active montelukast (Singulair) 10 MG tablet TAKE 1 TABLET BY MOUTH AT BEDTIME 90 tablet 3 024 Active Alcohol Swabs (Alcohol Prep) 70 % padsIndications: Type 2 diabetes mellitus with hyperglycemia ([facility]) USE DIRECTED WITH INSULIN 100 each 11 024 Active celecoxib (CeleBREX) 200 MG capsule TAKE 1 CAPSULE BY MOUTH EVERY TWELVE HOURS NEEDED FOR PAIN WITH FOOD 40 capsule 1 Active Dulaglutide (Trulicity) 1.5 MG/0.5ML solution auto-injectorInd ications:Type 2 diabetes mellitus with hyperglycemia, with long-term current use of insulin ([facility]) Inject 1.5 mg under the skin [...] UNITS SUBCUTANEOUSLY EVERY EVENING DIRECTED 15 mL 025 Active Continuous Glucose Manager Utilization Management (FreeStyle La 2 [place]) deviceIndication s:Type 2 diabetes mellitus with hyperglycemia, with long-term current use of insulin ([facility]) Scan sensor every 8 hours 1 each 025 Active Continuous Glucose Sensor (FreeStyle La 2 Sensor) miscIndications: Type 2 diabetes mellitus with hyperglycemia, with long-term current use of insulin ([facility]) Apply 1 sensor every 14 days 2 each Active glucose blood (FreeStyle Precision Adeel Test) test strip Use to test blood sugar 3 times daily 100 each 12 025 2025 Active UltiCare Short Pen [place] 31G X 8 MM miscIndications: Type 2 diabetes mellitus with hyperglycemia ([facility]) Use as instructed 100 each 11 Active Aspirin Low Dose 81 MG EC [...] NO RELIEF NO MORE THAN 3 TABLETS Active solifenacin (VESIcare) 5 MG tablet Take 1 tablet by mouth Once per day. Active metFORMIN XR (Glucophage-XR) 750 MG 24 hr tabletIndication s:Type 2 diabetes mellitus with hyperglycemia, with long-term current use of insulin ([facility]) Take 1 tablet by mouth twice daily with meals 180 tablet 3 Active cholecalciferol (Vitamin D-3) 25 MCG tablet TAKE 1 TABLET BY MOUTH EVERY MORNING 023 2024 Discontinued(M ed list cleanup (will not trigger notification to Pharmacy)) Elmiron 100 MG capsule 023 2024 Discontinued(D iscontinued by another clinician) glucose blood (QyukiTouch Ultra) test stripIndications :Type 2 diabetes mellitus with other specified complication, unspecified whether tank terminal gauger insulin use ([facility]) TEST BLOOD SUGAR 3 TIMES A [...] (will not trigger notification to Pharmacy)) PEG 0867-AEi-ZaElh-N aCl-NaSulf (PEG-3350/Electr olytes) 236 g reconstituted solution [...] (09/08/2024 10:24 AM EST): - following with [facility] - last US in November 2021 Assessment & Plan (05/29/2024 3:20 PM EST): - following with [facility] - last US in November 2021 Assessment & Plan (06/20/2023 5:47 AM EST): - following with [facility] - last US in November 2021 Restrictive airway disease 06/20/2023 Assessment & Plan (05/29/2024 3:18 PM EST): - evaluated by outreach representative - last PFT in December 2022, no obstructive airway disease / RAD - breathing exercise Assessment & Plan (06/20/2023 6:01 AM EST): - evaluated by outreach representative - last PFT in December 2022, no obstructive airway disease / RAD - breathing exercise Proteinuria 10/28/2020 Chronic interstitial cystitis 11/25/2017 Assessment & Plan (05/29/2024 3:22 PM EST): Seen by [facility] provider on 02/08/22 for f/u recurrent UTI and IC. Pt currently on Elmiron and nitrofurantoin per note. Assessment & Plan (06/20/2023 5:26 AM EST): Seen by [facility] provider on 02/08/22 for f/u recurrent [...] PM EST): -following with urology Atherosclerosis of [place] co ronary artery of [place] heart without angina pectoris 04/25/2015 06/12/2023 Insomnia 04/25/2015 06/12/2023 Overweight 04/25/2015 06/12/2023 Essential hypertension 04/25/2015 Assessment & Plan (09/08/2024 10:23 AM EST): -Goal BP < 140/90 per JNC-8 and < 130/80 per ACC/AHA guideline -Co-managed with interior wall assembler and banner painter -Slightly elevated BP, possibly due to her [...] < 130/80 per ACC/AHA guideline -Co-managed with interior wall assembler and banner painter -Slightly elevated BP, possibly due to her [...] < 130/80 per ACC/AHA guideline -Co-managed with interior wall assembler and banner painter -Slightly elevated BP, possibly due to her [...] (09/11/2024 2:28 PM EST): - following with [facility], last seen in May 2023 - last UTI in Feb 2024, breakthrough (on nitrofurantoin prophylaxis). - urine culture in Feb 2024 grew Klebsiella. Treated with TMP/SMX. - relative contraindication to SGLT2i Assessment & Plan (05/24/2024 6:20 AM EST): - following with [facility], last seen in May 2023 - [...] Plan (06/20/2023 5:25 AM EST): Seen by [facility] provider on 02/08/22 for f/u recurrent UTI and IC. Pt currently on Elmiron and nitrofurantoin. -Last UTI DECEMBER 2021. -Cont Elmiron and nitrofurantoin. 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/16/2005 06/12/2023 Resolved Problems Problem Noted Date Diagnosed Date Resolved Date Disorder of vein 06/26/2018 06/12/2023 06/20/2023 Encounters Date Type Department Care Team Description 11/26/2024 Travel 11/23/2024 Orders Only [facility] External Provider, [facility] 11/12/2024 Travel 11/11/[address] [address] Kera Maria MD FYI 10/19/2024 Orders Only [facility] [address] [place] [phone] Kera Maria MD Type 2 diabetes mellitus with hyperglycemia, with long-term current use of insulin ([facility]) (Primary Dx); Essential hypertension 10/19/2024 Telephone [facility] [address] [place] [phone] Kera Maria MD 10/16/2024 Orders Only [facility] [address] [place] [address] Kera Maria MD Type 2 diabetes mellitus with hyperglycemia, with long-term current use of insulin ([facility]) (Primary Dx); Essential hypertension; Dyslipidemia 10/16/2024 Telephone [facility] [address] [place] [phone] Kera Maria MD 10/02/2024 Orders Only GENERIC EXTERNAL DATA DEPARTMENT Provider, Generic External Data 09/23/2024 Refill [facility] [address] [place] [phone] Kera Maria MD 09/17/2024 Refill [facility] [address] [place], [place] [phone] Kera Maria MD Type 2 diabetes mellitus with hyperglycemia ([facility]) 09/14/2024 Orders Only [facility] [address] [place] [address] Chey Rosado MD 09/14/2024 Telephone [facility] [address] [place] [phone] Kera Maria MD Prior Authorization 09/10/2024 Orders Only GENERIC EXTERNAL DATA DEPARTMENT Provider, Generic External Data from Last 3 Months Immunizations Immunization Administration Dates Next Due Hep A, Adult 11/26/2024,05/25/2024 Hep B, adult 03/08/2017,02/25/2015,01/21/2014 Influenza High-dose Quadriva [...] Sign Reading Time Taken Comments Blood Pressure 122/58 11/26/2024 10:45 AM EDT Pulse 65 11/26/2024 10:45 AM EDT Temperature 36 ??C (96.8 ??F) 09/08/2024 9:57 [...] 10:30 AM EDT Office Visit [facility] [address] [place] [phone] Kera Maria MD [address] [place] [address] 01/28/2025 10:30 AM EDT Medication Management [address] [address] Lev Smith, PharmD [address] [place] [address] Health Maintenance Due Date Last Done Comments [...] SDOH Screening 06/20/2024 06/20/2023 Diabetes: Hemoglobin A1C 12/06/2024 02 025, 05/23/2024, 06/21/2023, Additional history exists Alcohol/Substance [...] Completed 05/25/2024, , 04/04/2022, Additional history exists Hepatitis A Vaccines Completed 11/26/2024, 05/25/20 24 HIB Vaccines Aged Out No longer eligi ble based on patient's age to complete this topic HPV Vaccines Aged Out No longer eligi ble based on patient's age to complete this topic Hepatitis C Screening Discontinued IPV Vaccines Aged Out No longer eligi ble based on patient's age to complete this topic Meningococcal B Vaccine Aged Out No l onger eligible based on patient's age to complete [...] Procedure Name Priority Date/Time Associated Diagnosis Comments US RETROPERITONEAL COMPLETE Routine 11/23/2024 1:09 PM EDT XR CHEST 2 VIEWS Routine 10/02/2024 8:00 [...] with long-term current use of insulin ([facility]) HM DIABETES EYE EXAM Routine 01/06/2024 BI [...] Recently Relevant to Health Maintenance Results * US Retroperitoneal Complete (11/23/2024 1:09 PM EDT) Anatomical Region Laterality Modality Ultrasound 11/23/2024 1:09 PM EDT Narrative 11/23/2024 1:11 PM EDT ? [facility] ?[address] ?[place] [address] ? Ultrasound Report ? Signed ? Patient: Sofía Penny ?MR#: ?? [id number] ? : 1950 ?Acct:[id number] ? Age/Sex: 74 / F ?ADM Date: 11/23/24 ? Loc: HO.US ? Attending Dr: Yanni CARBALLO ? Ordering Physician: Yanni Brown ?? Date of Service: 11/23/24 ?? Procedure(s): US retroperitoneal comp ?? Accession Number(s): [id number] ? cc: Yanni Brown; Kera Maria MD ? CLINICAL HISTORY: R32 - Unspecified urinary incontinence ? US Renal ? Comparison: None ? Findings: ?? Right kidney normal size and echotexture, 10.9 cm length. ?? Left kidney normal size and echotexture, 10.1 cm length. ?? No hydronephrosis of either kidney. ?? Normal color Doppler. ? Urinary bladder is unremarkable. Prevoid volume 721 mL. Postvoid volume ?? 220 mL. ?? Bilateral ureteral jets are visualized. ? IMPRESSION: ?? 1. Normal kidneys. ? 2. Moderate postvoid residual within the bladder. ? This document has been electronically signed by: Mundo Jessica MD on ?? 11/23/2024 13:09:52 ? Dictated By: ?Mundo Jessica MD ? Signed By: ?<Electronically signed by Mundo Jessica MD in OV> ? 11/23/24 1311 ? DD/ 1309 ? TD/TT: 11/23/24 1309 ? Fire Information Officer: ? Procedure Note Nayely Holman - 11/23/[address] [place] [address] Ultrasound Report Signed Patient: Kaylee Penny#: [id number] : 1950cct:[id number] Age/Sex: 74 / FADM Date: 11/23/24 Loc: HO.US Attending Dr: Yanni CARBALLO Ordering Physician: Yanni Brown Date of Service: 11/23/24 Procedure(s): US retroperitoneal comp Accession Number(s): [id number] cc: Yanni Brown; Kera Maria MD CLINICAL HISTORY: R32 - Unspecified urinary incontinence US Renal Comparison: None Findings: Right kidney normal size and echotexture, 10.9 cm length. Left kidney normal size and echotexture, 10.1 cm length. No hydronephrosis of either kidney. Normal color Doppler. Urinary bladder is unremarkable. Prevoid volume 721 mL. Postvoid volume 220 mL. Bilateral ureteral jets are visualized. IMPRESSION: 1. Normal kidneys. 2. Moderate postvoid residual within the bladder. This document has been electronically signed by: Mundo Jessica MD on 11/23/2024 13:09:52 Dictated By: Mundo Jessica MD Signed By: <Electronically signed by Mundo Jessica MD in OV> 11/23/24 1311 DD/ 1309 TD/TT: 11/23/24 1309 Fire Information Officer: us [facility] External Provider IMG US PROCEDURES Final Result * XR Chest 2 Views (10/02/2024 8:00 PM EDT) Anatomical Region Laterality Modality Chest Radiographic Collette ging 10/02/2024 8:00 PM EDT Narrative 10/02/2024 8:02 PM EDT ? [facility] ?[address] ?[place] [address] ?XRay Report ? Signed ? Patient: David Momin,Soífa ?MR#: ?? [id number] ? : 1950 ?Acct:[id number] ? Age/Sex: 74 / F ?ADM Date: 03/14/25 ? Loc: HO.ED ? Attending Dr: ? Ordering Physician: Anni Dias NP ?? Date of Service: 10/02/24 ?? Procedure(s): XR chest 2V ?? Accession Number(s): [id number] ? cc: Kera Maria MD; Anni Dias [...] ? DD/ 99 ? TD/TT: 10/02/241999 ? Fire Information Officer: ? Procedure Note [place], Nayely - 10/02/[address] [address] XRay Report Signed Patient: Kaylee Penny#: [id number] : 1950cct:[id number] Age/Sex: 74 / FADM Date: 10/02/24 Loc: .ED Attending Dr: Ordering Physician: Anni Dias NP Date of Service: 10/02/24 Procedure(s): XR chest 2V Accession Number(s): [id number] cc: Kera Maria MD; Anni Dias NP CLINICAL HISTORY: dyspnea 2 view chest x-ray Comparison: DX/SR - XR CHEST 2V - 10/19/22 13:51 EDT Findings: No consolidation or effusion. Normal size heart. No acute fracture. IMPRESSION: 1. No acute findings. This document has been electronically signed by: Gricelda Dove MD on 10/02/2024 20:00:36 Dictated By: Gricelda Dove MD Signed By: <Electronically signed by rGicelda Dove MD in OV> 10/02/242000 DD/ 99 TD/TT: 10/02/241999 Fire Information Officer: [facility] External Provider IMG XR PROCEDURES Edited Result - Final * High Sensitivity Troponin I (10/02/2024 7:08 PM EDT) Pathologist [facility] TROPONIN I HIGH SENSITIVITY <2.7 <3.5 - 17.0 ng/L [facility] Comment:The Contreras high sens itivity Troponin-I results should beused in conjunction with other diagnostic information suchas ECG, clinical observations and information, and patientsymptoms to aid in the diagnosis of [place]. 10/02/2024 7:08 PM EDT 10/02/2024 7:15 PM EDT Generic External Data Provider LAB BLOOD ORDERAB LES Final Result [facility] [address] [place] [phone] * SARS-CoV-2 RNA, Influenza A/B, and RSV RNA, Ql NAAT (10/02/2024 7:08 PM EDT) Pathologist [facility] Influenza A PCR NEGATIVE Negative [facility] Influenza B PCR NEGATIVE Negative [facility] Resp Syncy Virus RNA Qual PCR NEGATIVE Negative [facility] SARS COV2 PCR NEGATIVE Negative [facility] Comment:All test results mus t be [...] use by authorized laboratories.Testing performed on the VMob GeneXpert utilizingreal-time RT-PCR.All SARS CoV2 and positive influenza A/B results arereported to [facility]. 10/02/2024 7:08 PM EDT 10/02/2024 7:15 PM EDT us Generic External Data Provider LAB MICROBIOLOGY - GENERAL ORDERABLES Final Result [facility] [address] [place] [address] [phone] * (ABNORMAL) CBC auto differential (10/02/2024 7:08 PM EDT) White Blood Count 6.8 4.8 - 10.8 X10*3/uL [facility] Red Blood Count 4.33 4.20 - 5.50 X10*6/uL [facility] Hemoglobin 12.0 12.0 - 16.0 g/dl [facility] Hematocrit 35.5(L) 37.0 - 47.0 % [facility] Mean Corpuscular Volume 82.0 80.0 - 98.0 fL [facility] Mean Corpuscular Hemoglobin 27.7 27.0 - 33.0 pg [facility] Mean Corpuscular HGB Conc 33.8 31.0 - 35.0 g/dl [facility] Red Cell Distribution Width 13.6 11.0 - 16.0 % [facility] Platelet Count 182 160 - 400 X10*3/uL [facility] Mean Platelet Volume 9.4 9.4 - 12.3 fL [facility] Neutrophils Percent Auto 52.7 45 - 73 % [facility] Imm Gran Pct Auto 0.1 0.0 - 0.4 % [facility] Lymphocytes Percent Auto 36.1 20 - 40 % [facility] Monocytes Percent Auto 7.8 2 - 11 % [facility] Eosinophils Percent Auto 2.7 0 - 4 % [facility] Basophils Percent Auto 0.6 0 - 2 % [facility] NRBC Pct Auto 0.0 0.0 - 0.2 /100WBC [facility] Neutrophils Absolute Auto 3.6 2.0 - 8.3 x10*3/uL [facility] Imm Gran Abs Auto 0.01 0.00 - 0.03 X10*3/uL [facility] Lymphocytes Absolute Auto 2.5 1.2 - 4.9 X10*3/uL [facility] Monocytes Absolute Auto 0.5 0.1 - 1.2 X10*3/uL [facility] Eosinophils Absolute Auto 0.2 0.0 - 0.4 X10*3/uL [facility] Basophils Absolute Auto 0.0 0.0 - 0.2 X10*3/uL [facility] NRBC Abs Auto 0.000 0.0 - 0.012 X10*3/uL [facility] 10/02/2024 7:08 PM EDT 10/02/2024 7:15 PM EDT Generic External Data Provider LAB BLOOD ORDERAB LES Final Result Performing Organization Address [facility]/ZIP Co de Phone Number [facility] [address] [place] [phone] * B Type Natriuretic Peptide (BNP) (10/02/2024 7:08 PM EDT) Pathologist [facility] B Type Natriuretic Peptide 19 <100 pg/mL [facility] 10/02/2024 7:08 PM EDT 10/02/2024 7:15 PM EDT Generic External Data Provider LAB BLOOD ORDERAB LES Final Result Performing Organization Address [facility]/ZIP Co de Phone Number [facility] [address] [place] [phone] * (ABNORMAL) Comprehensive Metabolic Panel (10/02/2024 7:08 PM EDT) Pathologist [facility] Sodium 137 135 - 145 mmol/L [facility] Potassium 3.9 3.3 - 5.1 mmol/L [facility] Chloride 100 96 - 108 mmol/L [facility] Carbon Dioxide 27 22 - 29 mmol/L [facility] Anion Gap 14 12 - 20 [facility] Urea Nitrogen (BUN) 16 9 - 16 mg/dL [facility] Creatinine, Serum 0.80 0.5 - 1.4 mg/dL [facility] Creatinine Clr Calc Pharmacy 55.5 [facility] Comment:Provided height and weight: 152.4 cm,72.2 kg.eGFR (calculated from the MDRD study equation) and eCrCl(calculated from the Cockcroft-Gault equation) are based ondifferent parameters and may not yield comparable results.If eCrCl result is absurd, please check patient'sheight/weight. Estimated Glomerular Filt Rate >60 [facility] Comment:Chronic Kidney Disea se: Estimated GFR < 60 mL/min/1.94z1Nimhgy Kidney Disease: Estimated GFR < 15 mL/min/1.73m2 Glucose 228(H) 60 - 115 mg/dL [facility] Calcium 10.1 8.4 - 10.2 mg/dL [facility] Bilirubin, Total 0.4 0.0 - 1.0 mg/dL [facility] Aspartate Amino Transferase 31 5 - 31 U/L [facility] Alanine Aminotransferase 34(H) 0 - 31 U/L [facility] Total Protein 8.3(H) 6.5 - 8.0 g/dL [facility] Albumin Level 4.3 3.5 - 5.0 g/dL [facility] Alkaline Phosphatase 100 39 - 117 U/L [facility] 10/02/2024 7:08 PM EDT 10/02/2024 7:15 PM EDT us Generic External Data Provider LAB BLOOD ORDERAB LES Final Result [facility] [address] [place] [address] [phone] * Hm Colonoscopy (09/10/2024 1:05 PM EST) us Historical Provider HEALTH MAINTENANCE Final Result * Hematoxylin and Eosin Stain (09/10/2024 10:14 AM EST) 09/10/2024 10:1 4 AM EST 09/10/2024 10:42 AM EST Narrative [facility] - 09/14/2024 9:11 AM EST ----- ------- Name: Sofía Penny ? Age/Sex: 74/F ? : 1950 Unit#: [id number] ?? Attend Dr: Mayra Montoya MD ?Re09/10/24 ?Status: DEP SDC ? Location: HO.SSS ?Disch: ? ----- ------- SPEC : [id number] ?RECD: 09/10/24-1041 ? STATUS: ??SOUT ? REQ NUM: [id number] ? LEENA: 09/10/24-1014 ? SUBM DR: Mayra [...] Copies To: ?? Mayra Montoya MD ?? [facility] ?? [address] ?? [place] [address] ?? [phone] ?? Kera Maria MD ?? [facility] ?? [address] [facility] ?? [place] [address] ?? [phone] ----- ------- Signed (signature on file) Jorge Cooper MD 09/14/24 0911 ? ----- ------- ? END OF REPORT ? Generic External Data Provider LAB BLOOD ORDERAB LES Final Result Performing Organization Address [facility]/ZIP Co de Phone Number [facility] [address] [place] [phone] * (ABNORMAL) Glucose, Whole Blood (09/10/2024 9:20 AM EST) Glucose, Whole Blood 231(H) 60 - 115 mg/dL [facility] Comment:METER #: [id number] 09/10/2024 9:20 AM EST 09/10/2024 9:28 AM EST Generic External Data Provider LAB BLOOD ORDERAB LES Final Result Performing Organization Address City/[facility]/ZIP Co de Phone Number [facility] [address] [place] [phone] * (ABNORMAL) POCT glycosylated hemoglobin (Hgb [...] EDT Narrative 12/27/2023 9:22 AM EDT ? [facility] ? [address] ?[place], [place] [address] ? Mammography Report ? Signed ? Patient: Sofía Penny ?MR#: ?? [id number] ? : 1950 ?Acct:[id number] ? Age/Sex: 73 / F ?ADM Date: 11/29/23 ? Loc: HO.MAMMO ? Attending Dr: Kera Maria MD ? Ordering Physician: Kera Maria MD ?Results: 1Negative ? Date of Service: 11/29/23 ?Follow Up: 1 Year From Orig ?? inal Mammogram ? Procedure(s): MM tomosynthesis screening BI ?? Accession Number(s): [id number] ? cc: Kera Maria MD ? EXAMINATION: [...] 0918 ? DD/ 1025 ? TD/TT: ? Fire Information Officer: ? Procedure Note [place], [place] - 12/27/2023 [place] [facility] [address] [place], [place] [address] Mammography Report Signed Patient: Kaylee Penny#: [id number] : 1950cct:[id number] Age/Sex: 73 / FADM Date: 11/29/23 Loc: NICKIE Attending Dr: Kera Maria MD Ordering Physician: Kera Mariaesults: 1Negative Date of Service: 11/29/23Follow Up: 1 Year From Orig inal Mammogram Procedure(s): MM tomosynthesis screening BI Accession Number(s): [id number] cc: Kera Maria MD EXAMINATION: MM SCREENING [...] in OV> 12/27/23 0918 DD/ 1025 TD/TT: Fire Information Officer: Kera Maria MD IM BI PROCEDURES Edited Result - Final * (ABNORMAL) Lipid Panel with Reflex to Direct LDL (06/20/2023 1:03 PM EST) Triglycerides 190(H) <150 mg/dL [facility] Comment:Desirable Triglyceri de: less than 150 mg/dLBorderline High Triglyceride 150-199 mg/dLHigh Triglyceride: 200-499 mg/dLVery High Triglyceride: greater than or equal to 5OO mg/dL Cholesterol 120 <200 mg/dL [facility] Comment:Desirable Cholestero l: less than 200 mg/dLBorderline High Cholesterol: 200-239 mg/dLHigh Cholesterol: greater than 239 mg/dL LDL Cholesterol Calculated 33 <100 mg/dL [facility] Comment:Desirable LDL: less than 100 mg/dLNear Optimal/Above Optimal LDL: 110- 129 mg/dLBorderline High LDL: 130-159 mg/dLHigh LDL: 160-189 mg/dLVery High LDL: greater than or equal to 190 mg/dL HDL Cholesterol 49 >40 mg/dL [facility] Comment:Desirable HDL: great er than 40 mg/dL Note: This HDL assay may give artificially low results in patients with liver disease. Blood 06/20/2023 1:03 PM EST 06/20/2023 3:54 PM EST Kera Maria MD LAB BLOOD ORDERABLES Final Resul t Performing Organization Address [facility] de Phone Number [facility] [address] [place] [phone] * (ABNORMAL) Albumin, Random Urine W/Creatinine (06/20/2023 1:03 PM EST) Creatinine, Urine 187.00 mg/dL [facility] Microalbumin Urine 170.0 mg/L [facility] Microalbum Creatinine Ratio Ur 90.9(H) <30 ug/mg cr [facility] Comment:Albumin/Creatinine R atio Reference Ranges: Normal: < 30 ug/mg creatinine Microalbuminuria: 30 - 300 ug/mg creatinineClinical Albuminuria: > 300 ug/mg creatinine Urine 06/20/2023 1:03 PM EST 06/20/2023 4:17 PM EST Kera Maria MD LAB URINE ORDERABLES Final Resul t Performing Organization Address [facility] de Phone Number [facility] [address] [place] [phone] from Last 3 Months or Most Recently Relevant to Health Maintenance Insurance [facility] [address] [place] [address] [id number] [place] [id number] Care Teams Solderer Production Line Relationship Specialty Start Date End Date Kera Maria MD [address] [place] [address] PCP - General Family Medicine 07/22/18 Lev Smith, HermilaD [address] [place] [address] Pharmacist Internal Medicine 11/12/24
--- OUTSIDE RECORDS SUMMARY | 2024-12-07 12:31 | XMS_ITS | Encounter Summary ---
Author Organization [employer] Address [address] [facility] [address] [place] [address] Care Team Providers Care Director Of Tax Services Name Role Phone Kera Maria MD Primary Care Provider [phone] Lev Smith PharmD Unavailable [phone] Reason for Visit * Reason Onset Date Comments Results 06/26/2023 Encounter Details Date Type Department Care Team ([facility] st Contact Info) Description 06/26/2023 Telephone [facility] [address] [place], [place] [phone] Kera Maria MD [address] [place], [place] [phone] Results Social History Tobacco Use Types Packs/Day [...] xray to knee. Please contact pt at [phone] (lending consultant needed) documented in this encounter Plan of Treatment Upcoming Encounters Date Type Department Care Team (Late st Contact Info) Description 12/15/2024 10:30 AM EDT Office Visit [facility] [address] [place] [phone] Kera Maria MD [address] [place] [phone] 01/28/2025 10:30 AM EDT Medication Management [facility] [address] [place] [phone] Lev Smith PharmD [address] [place] [phone] documented as of this encounter Visit Diagnoses Not on filedocumented in this encounter Care Teams Director Of Tax Services Relationship Specialty Start Date End Date Kera Maria MD [address] [place] [phone] PCP - General Family Medicine 07/22/18 Lev Smith, PharmD [address] [place] [phone] Pharmacist Internal Medicine 11/12/24 documented as of this encounter
--- OUTSIDE RECORDS SUMMARY | 2024-12-07 12:31 | XMS_ITS | Encounter Summary ---
Author Organization [employer] Address [address] [facility] 7t [place] [address] Care Team Providers Care Screw Machine Repairer Name Role Phone Kera Maria MD Primary Care Provider [phone] Lev Smith PharmD Unavailable [phone] Reason for Visit * Reason Onset Date Comments Appointment Request 05/10/2023 Encounter Details Date Type Department Care Team (Late st Contact Info) Description 05/10/2023 Telephone [facility] [address] [place] [address] Kera Maria MD [address] [place] [address] Appointment Request Social History Tobacco Use Types [...] appt with PCP, any question contact pt [phone]. documented in this encounter Plan of Treatment Upcoming Encounters Date Type Department Care Team (Late st Contact Info) Description 12/15/2024 10:30 AM EDT Office Visit [facility] [address] [place] [phone] Kera Maria MD [address] [place] [phone] 01/28/2025 10:30 AM EDT Medication Management [address] [address] Lev Smith, Steven [address] [place] [phone] documented as of this encounter Visit Diagnoses Not on filedocumented in this encounter Care Teams Screw Machine Repairer Relationship Specialty Start Date End Date Kera Maria MD [address] [place] [phone] PCP - General Family Medicine 07/22/18 Lev Smith, PharmD [address] [place] [phone] Pharmacist Internal Medicine 11/12/24 documented as of this encounter
--- OUTSIDE RECORDS SUMMARY | 2024-12-07 12:31 | XMS_ITS | Encounter Summary ---
Author Organization [employer] Address [address] [facility] 7t [place] [address] Care Team Providers Care Injector Assembler Name Role Phone Kera Maria MD Primary Care Provider [phone] Lev Smith PharmD Unavailable [phone] Encounter Details Date Type Department Care Team (Late st Contact Info) Description 01/11/2023 Orders Only [facility] [address] [place] [address] [phone] Juhi Onofre LPN Social History Tobacco Use [...] Description 12/15/2024 10:30 AM EDT Office Visit [facility] [address] [place] [address] [phone] Kera Maria MD [address] [place] [address] [phone] 01/28/2025 10:30 AM EDT Medication Management [facility] [address] [place] [address] [phone] Lev Smith, PharmD [address] [place] [address] [phone] documented as of this encounter Visit Diagnoses Not on filedocumented in this encounter Care Teams Injector Assembler Relationship Specialty Start Date End Date Kera Maria MD [address] [place], [place] [phone] PCP - General Family Medicine 07/22/18 Lev Smith PharmD [address] [place] [address] Pharmacist Internal Medicine 11/12/24 documented as of this encounter
== END 2024-12-07 12:13 | disposition home or self-care (01) ==
LOC: HO.HUSH 11:51
PROVIDERS: PCP Family Medicine; Visit Provider Nurse Practitioner Family
DX: N30.10 Interstitial cystitis (chronic) without hematuria (principal); R32 Unspecified urinary incontinence; N39.0 Urinary tract infection, site not specified
CPT/HCPCS: 99213

== ENCOUNTER → 2024-12-07 11:50 | Outpatient (BNVA) | payer OTHER, SELFPAY | PROVIDERS: PCP Family Medicine; Visit Provider Nurse Practitioner Family | DX: N39.3 Stress incontinence (female) (male) (principal); N30.10 Interstitial cystitis (chronic) without hematuria | CPT/HCPCS: 51798; 81003; 99212 ==

== ENCOUNTER 2024-12-15 10:54 | Outpatient (REF) | payer OTHER, SELFPAY ==
--- OUTSIDE RECORDS SUMMARY | 2024-12-15 11:44 | XMS_ITS | Encounter Summary ---
Author Organization [employer] Address [address] [facility] 7t [place] [address] Care Team Providers Care Electronic Publishing Specialist Name Role Phone Kera Maria MD Primary Care Provider [phone] Lev Smith PharmD Unavailable [phone] Encounter Details Date Type Department Care Team (Latest Contact Info) Description 12/15/2024 Travel Social History Tobacco Use Types Packs/Day [...] Care Team (Late st Contact Info) Description 01/28/2025 10:30 AM EDT Medication Management [facility] [address] [place] [address] Lev Smith, Steven [address] [place] [address] documented as of this encounter Visit Diagnoses Not on filedocumented in this encounter Care Teams Electronic Publishing Specialist Relationship Specialty Start Date End Date Kera Maria MD [address] [place] [address] [phone] PCP - General Family Medicine 07/22/18 Lev Smith, PharmD [address] [place] [address] [phone] Pharmacist Internal Medicine 11/12/24 documented as of this encounter
[2024-12-15 13:28] LABS: Appearance Urine Clear; Color Urine Yellow; Glucose Urine UA 100 mg/dL (Negative); Leukocyte Esterase Urine Negative (Negative); Nitrite Urine Negative (Negative); Urine Blood Negative (Negative); Urine Ketones Negative (Negative); Urine Protein Negative (Neg-Trace)
[2024-12-15 13:33] LABS: Bacteria Urine None Seen (None Seen); Hyaline Casts Urine 0-2 /LPF (0-2); RBC Urine 0-2 /HPF (0-2); Squamous Epithelial Cell Urine 0-2 /HPF (0-2); WBC Urine 0-5 /HPF (0-5)
[2024-12-15 13:41] LABS: Cholesterol 116 mg/dL (<200); HDL Cholesterol 46 mg/dL (>40); LDL Cholesterol Calculated 43 mg/dL (<100); Triglycerides 138 mg/dL (<150)
[2024-12-15 13:42] LABS: Anion Gap 15 (12-20); Carbon Dioxide 28 mmol/L (22-29); Chloride 101 mmol/L (96-108); Cholesterol 114 mg/dL (<200); Estimated Glomerular Filt Rate > 60; HDL Cholesterol 45 mg/dL (>40); LDL Cholesterol Calculated 42 mg/dL (<100); Potassium 3.5 mmol/L (3.3-5.1); Sodium 140 mmol/L (135-145); Triglycerides 136 mg/dL (<150)
[2024-12-15 13:54] LABS: Creatinine Urine 16.18 mg/dL; Microalbum/Creatinine Ratio Ur 67.9 ug/mg cr (<30)
[2024-12-15 16:15] LABS: Reflex LDLD? No
== END 2024-12-15 10:55 | disposition home or self-care (01) ==
LOC: HO.HHCL 10:54
PROVIDERS: Internal Medicine Nephrology; Nurse Practitioner Family; Visit Provider Family Medicine
DX: E11.29 Type 2 diabetes mellitus with other diabetic kidney complication (principal); R80.9 Proteinuria, unspecified; N30.10 Interstitial cystitis (chronic) without hematuria; R32 Unspecified urinary incontinence; E78.5 Hyperlipidemia, unspecified; E11.65 Type 2 diabetes mellitus with hyperglycemia; Z79.4 Long term (current) use of insulin
CPT/HCPCS: 36415; 80051; 80061; 81001; 82043; 82565; 82570; 87086

== ENCOUNTER 2025-01-15 13:25 | Outpatient (AMB) | payer OTHER, SELFPAY ==
--- NOTE | 2025-01-15 13:28 | HO.NEPHOV ---
Vital Signs 01/15/25 13:29 Height 5 ft Weight 165 lb 6 oz BMI 32.3 BP 115/56 L Blood Pressure Location Lt brachial Position Sitting Pulse 61 Pulse Source Pulse Oximeter Pulse Oximetry (%) 94 Oxygen Delivery Method Room Air Intake Visit Reasons: Hypertension-Conf Intake Note: Patient here for a follow-up. Director Government Required: Yes Director Government Name: Robert [phone] Information Interpreted: clinical only Accompanied by: Self / Same As Patient Allergies adhesive tape (ADHESIVE TAPE) Allergy (Intermediate, Verified 01/15/25 13:31) RASH-LOCALIZED latex Allergy (Verified 01/15/25 13:31) Rash Do you need a note to return to daycare/school/sports/work: No HPI Comments Details: I had the privilege of seeing Sofía in follow-up of her proteinuria and hypertension. She has a diabetic and is on multiple medications . Her blood sugar control has been reasonable. Blood pressure is at goal. She is on losartan. She does not take nonsteroidal anti-inflammatories. She has no chest pain, dizziness, palpitation or urinary symptoms. She is known to have proteinuria. She has not had any blood work or urine studies lately. Her renal functions have been stable. She claims to be compliant with her medications. She feels well. [facility] Medical History Diabetes Osteoarthritis Migraine Elevated cholesterol CAD (coronary artery disease) BART (obstructive sleep apnea) Chronic restrictive lung disease DILSHAD (stress urinary incontinence, female) Recurrent UTI (urinary tract infection) Surgical History H/O esophagogastroduodenoscopy H/O colonoscopy History of bladder suspension procedure S/P CABG x 3 History of tubal ligation History of hysterectomy Family History Father Alcohol abuse Cirrhosis Mother Cervical cancer Paternal Grandfather Stomach cancer Social History Household Members: Children Alcohol intake: never Patient Tobacco Use Status: Never used Tobacco Advance Directives Date on File: 05/14/23 Current occupational status: retired Current occupation: lt handed Review of Systems Const All systems reviewed & are unremarkable except as noted in HPI and below Physical Exam Vital Signs: Last Vital Signs Pulse 61 01/15/25 13:29 BP 115/56 L 01/15/25 13:29 Pulse Ox 94 01/15/25 13:29 Oxygen Delivery Method Room Air 01/15/25 13:29 BMI result Body Mass Index 32.3 Const General: comfortable and no acute distress Orientation/consciousness: patient oriented x3 HEENT Head: Yes normocephalic Mouth: Normal oral and palatal mucosa present Eyes EOM: EOMs intact bilaterally Neck Neck: Yes supple Resp Auscultation: clear to auscultation bilaterally Cardio Jugular venous distension: no JVD Rate: regular rate GI Palpation (GI): Soft to palpation Auscultation: normal bowel sounds General: Yes no CVA tenderness Back/Spine/Pelvis Back: no CVA tenderness Skin General skin exam: no rashes or lesions noted Neuro General: patient oriented x3 and moves all extremities Extrem General: Yes no pedal edema Results Reviewed Nephrology Results: Hgb, (12.0-16.0) 12.0 g/dl 10/02/24 WBC, (4.8-10.8) 6.8 X10*3/uL 10/02/24 Plt Count, (160-400) 182 X10*3/uL 10/02/24 Sodium, (135-145) 140 mmol/L 12/15/24 Potassium, (3.3-5.1) 3.5 mmol/L 12/15/24 Chloride, (96-108) 101 mmol/L 12/15/24 Carbon Dioxide, (22-29) 28 mmol/L 12/15/24 BUN, (9-16) 16 mg/dL 10/02/24 Creatinine, (0.5-1.4) 0.66 mg/dL 12/15/24 Calcium, (8.4-10.2) 10.1 mg/dL 10/02/24 Urine Protein, (Neg-Trace) Negative mg/dL 12/15/24 Urine Creatinine 16.18 mg/dL 12/15/24 Assessment & Plan Assessment & Plan (1) HTN (hypertension), benign: Code(s): I10 - Essential (primary) hypertension Category: Medical (2) Proteinuria: Code(s): R80.9 - Proteinuria, unspecified Category: Medical Qualifiers: Proteinuria type: other Qualified Code(s): R80.8 - Other proteinuria Plan Sofía has longstanding diabetes mellitus and hypertension. She is on ARB. Her renal functions had been stable. She is on amlodipine which I plan to discontinue and maximize her losartan. She needs to be on SGLT2 inhibitor. I ordered follow-up blood work including hemoglobin A1c and urine studies for continued care. Answered all questions. Further management is pending evolving data. Orders: Orders Electrolytes 6 Months I10 - Essential (primary) hypertension, R80.9 - Proteinuria, unspecified Blood Urea Nitrogen 6 Months I10 - Essential (primary) hypertension, R80.9 - Proteinuria, unspecified Creatinine 6 Months I10 - Essential (primary) hypertension, R80.9 - Proteinuria, unspecified Protein Creatinine Ratio, Ur 6 Months I10 - Essential (primary) hypertension Coding Level of Care Code Est Pt Level 4 (03293) Diagnoses HTN (hypertension), benign I10 Other proteinuria R80.8 Proteinuria type: other
[2025-01-15 13:29] VITALS: BP 115/56; PULSE 61; O2SAT 94; BMI 32.3
--- OUTSIDE RECORDS SUMMARY | 2025-01-15 13:53 | XMS_ITS | Encounter Summary ---
Author Organization [facility] Address [address] [place] [address] 7t [place] [address] Care Team Providers Care Intake Rn Name Role Phone Kera Maria MD Primary Care Provider [phone] Lev Smith PharmD Unavailable [phone] Encounter Details Date Type Department Care Team (Late st Contact Info) Description 08/09/[address] [facility] MEDICINE [address] [place] [address] [phone] Kera Maria MD [address] [place] [address] [phone] Social History Tobacco Use Types Packs/Day Years [...] Description 01/28/2025 10:30 AM EDT Medication Management [facility] MEDICINE [address] [place] [address] [phone] Lev Smith, PharmD [address] [place], [place] [phone] documented as of this encounter Procedures Procedure Name Priority Date/Time Associated Diagnosis Comments MAMMOGRAPHY Routine 08/06/2022 documented in this encounter Results * Mammography (08/06/2022) Mammogram perform Anatomical Region Laterality Modality Other us Historical Provider HEALTH MAINTENANCE Final Result documented in this encounter Visit Diagnoses Not on filedocumented in this encounter Care Teams Intake Rn Relationship Specialty Start Date End Date Kera Maria MD [address] [place], [place] [phone] PCP - General Family Medicine 07/22/18 Lev Smith, HermilaD [address] [place] [address] Pharmacist Internal Medicine 11/12/24 documented as of this encounter
== END 2025-01-15 13:56 | disposition home or self-care (01) ==
LOC: HO.HKA 13:25
PROVIDERS: PCP Family Medicine; Visit Provider Internal Medicine Nephrology
DX: I10 Essential (primary) hypertension (principal); R80.8 Other proteinuria
CPT/HCPCS: 99214

== ENCOUNTER → 2025-01-15 13:25 | Outpatient (BNVA) | payer OTHER, SELFPAY | PROVIDERS: PCP Family Medicine; Visit Provider Internal Medicine Nephrology | DX: I10 Essential (primary) hypertension (principal); R80.9 Proteinuria, unspecified | CPT/HCPCS: 99212 ==

== ENCOUNTER 2025-02-19 10:47 | Outpatient (AMB) | payer OTHER, SELFPAY ==
[2025-02-19 10:52] VITALS: BP 130/62; PULSE 62; BMI 32.5
--- NOTE | 2025-02-19 10:52 | A.OFFVIS_ITS ---
Vital Signs 02/19/25 10:52 Height 5 ft Weight 166 lb 10.711 oz BMI 32.5 BP 130/62 Blood Pressure Location Lt brachial Position Sitting Pulse 62 Intake Visit Reasons: Abdominal bloating/s/p colo 08/2024 Intake Note: Sofía presents in office follow up s/p colonoscopy. CC: Patient reports doing well denies any new GI concerns today. Fashion Show Director Required: Yes Fashion Show Director Language: Interventional Pain Physician Name: Disha [facility] interactive project manager Accompanied by: Self / Same As Patient Allergies adhesive tape (ADHESIVE TAPE) Allergy (Intermediate, Verified 02/19/25 11:05) RASH-LOCALIZED No Known Drug Allergies Allergy (Unknown, Verified 02/19/25 11:05) none latex Allergy (Verified 02/19/25 11:05) Rash HPI HPI Abdominal bloating/s/p colo 08/2024: Details: Assessment & Plan (1) ALMENDAREZ (nonalcoholic steatohepatitis): Comment: BASELINE LABS: 09/2019 AST/ALT 27/36 with the remainder normal, autoimmune workup is negative, ferritin is normal at 32 02/03/19. JUAN Screen Negative Anti-Mitochondrial Ab Negative Anti-Smooth Muscle Ab <20 Hep Bs Antigen NEGATIVE Hepatitis C Ab (EIA) NONREACTIVE HIV 1&2 Antigen & Ab NONREACTIVE CURRENT LABS 01/26/23. Hemoglobin A1c % 7.6 Total Bilirubin 0.6 AST 29 ALT 44 H Alkaline Phosphatase 72 Alpha Fetoprotein 1.2 ULTRASOUND OF THE ABDOMEN 12/19/21? FINDINGS: PANCREAS: Visualized head and body of the pancreas is homogeneous in echotexture. The tail and rest of the body pancreas is not visualized. LIVER: The right hepatic lobe measures 17.2 cm in length and slightly enlarged in size. The liver contour is normal. The liver is mildly echogenic. There is no intrahepatic biliary duct dilatation seen. GALLBLADDER: The gallbladder wall thickness is 0.19 cm. The gallbladder is physiologically distended without evidence of stones, sludge, polyps, wall thickening or pericholecystic fluid. COMMON BILE DUCT: Normal in caliber measuring 0.6 cm in diameter. RIGHT KIDNEY: Normal. No hydronephrosis. No renal calculi or focal parenchymal lesions. The kidney measures 11.4 cm in maximum dimension. FREE FLUID: None. US/US abdomen limited IMPRESSION: Mild right hepatomegaly with mild hepatic steatosis. No focal lesion seen. Visualized portions of the pancreas appears unremarkable. ? Code(s): K75.81 - Nonalcoholic steatohepatitis (ALMENDAREZ) Category: Medical (2) Tubular adenoma of colon: Comment: Last scoped 2018 repeat in 5 years aeb Code(s): D12.6 - Benign neoplasm of colon, unspecified Category: Medical (3) Abdominal bloating: Code(s): R14.0 - Abdominal distension (gaseous) Category: Medical (4) GERD (gastroesophageal reflux disease): Code(s): K21.9 - Gastro-esophageal reflux disease without esophagitis Category: Medical (5) Obstructive sleep apnea: Comment: AHI 14/hr, REM AHI 43.8/hr, O2 esvin 78% Code(s): G47.33 - Obstructive sleep apnea (adult) (pediatric) Category: Medical (6) Pre-op examination: Code(s): Z01.818 - Encounter for other preprocedural examination Category: Medical Plan She continues to do well with her famotidine and simethicone. Due for labs and US for her ALMENDAREZ. She is due for colonoscopy, we had tried ordering it 2 years ago but no one every called her. She has BART and restrictive lung disease and sees Dr. Schreiber, and she denies cardiac problems. There are no prior problems with anesthesia or sedation. No ID problems. She has a PHX of TA. Orders: Orders Comprehensive Met. Panel 10/22/23 K75.81 - Nonalcoholic steatohepatitis (ALMENDAREZ) Complete Blood Count Auto Diff 10/22/23 K75.81 - Nonalcoholic steatohepatitis (ALMENDAREZ) Colonoscopy - GI Use Only 10/22/23 D12.6 - Benign neoplasm of colon, unspecified US abdomen comp w elastography 10/22/23 K75.81 - Nonalcoholic steatohepatitis (ALMENDAREZ) Medications: New peg 3350-electrolytes 236-22.74-6.74 -5.86 gram (Golytely) until fecal effluent is clear; do not exceed a total volume of 2,000 mL 240 mL PO Q10M 4,000 mL 0RF 1 day Z12.11 - Encounter for screening for malignant neoplasm of colon bisacodyl (Dulcolax (bisacodyl)) 10 mg (2 x 5 mg) PO BEDTIME 4 tabs 0RF 2 days Refilled simethicone 180 mg PO QID 120 caps 6RF R14.0 - Abdominal distension (gaseous) famotidine 10 mg PO BID 60 tabs 6RF K21.9 - Gastro-esophageal reflux disease without esophagitis LABS: Laboratory Tests 10/02/24 12/15/24 19:08 10:58 Estimated GFR > 60 Total Bilirubin 0.4 AST 31 ALT 34 H Alkaline Phosphatase 100 ULTRASOUND OF THE ABDOMEN WITH ELASTOGRAPHY -not obtained in order not in computer COLONOSCOPY Findings: Terminal Ileum- superficially intuabted, nml Cecum:normal right sided retroflexion- nml Ascending Colon: normal Transverse Colon - 7-8 mm sessile polyp removed with cold snare Descending Colon:normal Sigmoid Colon: severe diverticulosis Rectum: Retroflexion with small internal hemorrhoids seen, grade I Anorectum - normal Intervention: cold snare Impression and Post Procedure Diagnosis: diverticulosis colon polyp x 1 internal hemorrhoids Plan: High fiber diet leaflet Avoid straining at stool, epsom salts and sitz bath, anusol supps or cream Repeat Colonoscopy in 5-7 years if adenomaotus, 10 yrs if hyperplastic and health allows or earlier if clinically indicated BIOPSY Received: 09/10/24 Diagnosis Colon, transverse, polypectomy: Fragments of tubular adenoma; negative for high- grade dysplasia or carcinoma. TODAY'S VISIT Liberian #Joseph The procedure should be repeated in 5-7 years depending on the patient's state of health. The procedure was well tolerated. The results were explained and the patient is agreeable to the follow-up interval as stated. The bowel pattern has returned to normal. Education was provided to tell any 1st degree relatives about their findings to be sure that they are screened by age 45. Educated that they will be put on a recall list when it is time for their repeat scope but should they move out of state or away from the hospital they will need to remember along with their primary to repeat the procedure in a timely fashion to avoid any adverse complications. She continues to do well with her famotidine and simethicone. Due for labs and US for her ALMENDAREZ. She tells me she has been using [id number] omeprazole occasionally if she eats spicy foods or foods with heavy sauces. I will try providing this as well. Return office visit in 6 months. Ordering ultrasound with elastography. [facility] Medical History Diabetes Osteoarthritis Migraine Elevated cholesterol CAD (coronary artery disease) BART (obstructive sleep apnea) Chronic restrictive lung disease DILSHAD (stress urinary incontinence, female) Recurrent UTI (urinary tract infection) Surgical History H/O esophagogastroduodenoscopy H/O colonoscopy History of bladder suspension procedure S/P CABG x 3 History of tubal ligation History of hysterectomy Family History Father Alcohol abuse Cirrhosis Mother Cervical cancer Paternal Grandfather Stomach cancer Social History Household Members: Children Alcohol intake: never Patient Tobacco Use Status: Never used Tobacco Advance Directives Date on File: 05/14/23 Current occupational status: retired Current occupation: lt handed Review of Systems Const Denies fatigue, Denies fever(s), Denies night sweats, Denies poor appetite and Denies weight loss ENT Reports Normal hearing present, Denies dental pain, Denies dysphagia, Denies hearing loss, Denies mouth pain, Denies odynophagia, Denies throat swelling and Denies tongue swelling Card Reports no additional complaints Resp Reports no additional complaints GI Details: Denies abdominal pain, Denies melena, Denies bloating, Denies hematochezia, Denies constipation, Denies GI cramping, Denies dysphagia, Denies excessive flatus, Denies early satiety, Reports heartburn, Denies diarrhea, Denies nausea, Denies odynophagia, Denies vomiting and Denies hematemesis Skin/Breast Denies pruritus, Denies lesions, Denies rash and Denies jaundice Neuro Reports Normal hearing present and Denies Abnormal speech present Endo Denies fatigue Aller/Immun Denies throat swelling and Denies tongue swelling Physical Exam Const General: cooperative, no acute distress, well developed and well groomed Nutritional Appearance: well nourished and obese Orientation/consciousness: oriented to person, oriented to place and oriented to time Limitations: language barrier HEENT Head: Yes normocephalic and Yes atraumatic Teeth and gingiva: edentulous Eyes General: appearance normal, both eyes and all related structures Pupils: Equal, round and reactive pupils present Neck Neck: Yes normal visual inspection and Yes no lymphadenopathy Thyroid: Thyroid normal Resp Effort & Inspection: normal respiratory effort and able to speak in complete sentences Auscultation: clear to auscultation bilaterally Cardio Rate: regular rate Rhythm: regular rhythm Heart sounds: Normal, physiologic split S2 sound present Peripheral pulses: radial pulses present and posterior tibial pulses present GI Inspection: No distended, Yes Abdominal panniculus present and Yes obesity Palpation (GI): Soft to palpation, nontender, no guarding, not rigid and No hepatosplenomegaly present Percussion: Yes normal to percussion Auscultation: normal bowel sounds Rectal Exam - Female: deferred Skin General skin exam: no rashes or lesions noted, turgor normal, skin not dry, no jaundice, No spider nevi and no striae Rashes: no rashes Nails: normal Neuro General: oriented to person, oriented to place and oriented to time Cranial nerves: Yes Equal, round and reactive pupils present and Yes Normal hearing present Speech: No Abnormal speech present Extrem General: Yes normal to inspection, No clubbing, No cyanosis and No edema Psych Appearance: grossly normal and well kempt Mental Status: mental status grossly normal Speech and movement: Normal speech and movement present Affect: normal affect Attitude: cooperative Thought process: Normal thought process present and not confabulating Thought content: Normal thought content present Insight: Fair insight present (Psych) Judgement: Fair judgement present (Psych) Results Reviewed Results Reviewed: Laboratory Tests 10/02/24 12/15/24 19:08 10:58 Estimated GFR > 60 Total Bilirubin 0.4 AST 31 ALT 34 H Alkaline Phosphatase 100 ULTRASOUND OF THE ABDOMEN WITH ELASTOGRAPHY -not obtained in order not in computer COLONOSCOPY 09/10/24 Findings: Terminal Ileum- superficially intuabted, nml Cecum:normal right sided retroflexion- nml Ascending Colon: normal Transverse Colon - 7-8 mm sessile polyp removed with cold snare Descending Colon:normal Sigmoid Colon: severe diverticulosis Rectum: Retroflexion with small internal hemorrhoids seen, grade I Anorectum - normal Intervention: cold snare Impression and Post Procedure Diagnosis: diverticulosis colon polyp x 1 internal hemorrhoids Plan: High fiber diet leaflet Avoid straining at stool, epsom salts and sitz bath, anusol supps or cream Repeat Colonoscopy in 5-7 years if adenomaotus, 10 yrs if hyperplastic and health allows or earlier if clinically indicated BIOPSY Received: 09/10/24 Diagnosis Colon, transverse, polypectomy: Fragments of tubular adenoma; negative for high- grade dysplasia or carcinoma. Assessment & Plan Assessment & Plan (1) GERD (gastroesophageal reflux disease): Code(s): K21.9 - Gastro-esophageal reflux disease without esophagitis Category: Medical (2) Chronic idiopathic constipation: Code(s): K59.04 - Chronic idiopathic constipation Category: Medical (3) Tubular adenoma of colon: Comment: Last scoped 2018 repeat in 5 years aeb Code(s): D12.6 - Benign neoplasm of colon, unspecified Category: Medical (4) ALMENDAREZ (nonalcoholic steatohepatitis): Comment: BASELINE LABS: 09/2019 AST/ALT 27/36 with the remainder normal, autoimmune workup is negative, ferritin is normal at 32 02/03/19. JUAN Screen Negative Anti-Mitochondrial Ab Negative Anti-Smooth Muscle Ab <20 Hep Bs Antigen NEGATIVE Hepatitis C Ab (EIA) NONREACTIVE HIV 1&2 Antigen & Ab NONREACTIVE CURRENT LABS 10/02/2504/27/25 19:0810:58 Estimated GFR > 60 Total Bilirubin 0.4 AST 31 ALT 34 H Alkaline Phosphatase 100 ULTRASOUND OF THE ABDOMEN 12/19/21? FINDINGS: PANCREAS: Visualized head and body of the pancreas is homogeneous in echotexture. The tail and rest of the body pancreas is not visualized. LIVER: The right hepatic lobe measures 17.2 cm in length and slightly enlarged in size. The liver contour is normal. The liver is mildly echogenic. There is no intrahepatic biliary duct dilatation seen. GALLBLADDER: The gallbladder wall thickness is 0.19 cm. The gallbladder is physiologically distended without evidence of stones, sludge, polyps, wall thickening or pericholecystic fluid. COMMON BILE DUCT: Normal in caliber measuring 0.6 cm in diameter. RIGHT KIDNEY: Normal. No hydronephrosis. No renal calculi or focal parenchymal lesions. The kidney measures 11.4 cm in maximum dimension. FREE FLUID: None. US/US abdomen limited IMPRESSION: Mild right hepatomegaly with mild hepatic steatosis. No focal lesion seen. Visualized portions of the pancreas appears unremarkable. ? Code(s): K75.81 - Nonalcoholic steatohepatitis (ALMENDAREZ) Category: Medical Plan Liberian #Disha and Yolande The procedure should be repeated in 5-7 years depending on the patient's state of health. The procedure was well tolerated. The results were explained and the patient is agreeable to the follow-up interval as stated. The bowel pattern has returned to normal. Education was provided to tell any 1st degree relatives about their findings to be sure that they are screened by age 45. Educated that they will be put on a recall list when it is time for their repeat scope but should they move out of state or away from the hospital they will need to silva mber along with their primary to repeat the procedure in a timely fashion to avoid any adverse complications. She continues to do well with her famotidine and simethicone. Due for labs and US for her ALMENDAREZ. She tells me she has been using [id number] omeprazole occasionally if she eats spicy foods or foods with heavy sauces. I will try providing this as well. Return office visit in 6 months. Ordering ultrasound with elastography. Orders: Orders US abdomen comp w elastography Today K75.81 - Nonalcoholic steatohepatitis (ALMENDAREZ) Medications: New omeprazole 20 mg PO .qd 30 caps 6RF 30 days famotidine (Pepcid) 20 mg PO BEDTIME 30 tabs 6RF Refilled simethicone (Gas Relief (simethicone)) 180 mg PO QID 120 caps 6RF R14.0 - Abdominal distension (gaseous) Discontinued famotidine (Acid Rubber Calender Helper (famotidine)) Discontinued Reason: Doctor's Order 10 mg PO BID 60 ea 0RF K21.9 - Gastro- esophageal reflux disease without esophagitis Coding Level of Care Code Est Pt Level 3 (54255) Diagnoses GERD (gastroesophageal reflux disease) K21.9 Chronic idiopathic constipation K59.04 Tubular adenoma of colon D12.6 ALMENDAREZ (nonalcoholic steatohepatitis) K75.81
--- OUTSIDE RECORDS SUMMARY | 2025-02-19 10:56 | XMS_ITS | Clinical Summary ---
Demographics Address [address] [place] [address] Mobile Phone Home Phone Preferred Language es Marital Status Unknown Presybeterian Affiliation Unknown Race Unknown Ethnic Group Unknown Author Organization [facility] Address [address] [place] [address] Phone Care Team Providers Care Rope Laying Machine Operator Name Role Phone Kera Maria MD Primary Care Provider [phone] Allergies No known active allergies Medications aspirin [...] Exam 09/01/2024 Diabetes: Visual Foot Exam 09/01/2024 Influenza Vaccine (#1) 2025 , 06/06/2021, 08/03/2020, Additional history exists Pneumococcal Vaccine: 50+ Years Completed 05/27/2017, 05/21/2016, 04/19/2013, Additional history exists Pneumococcal Vaccine: Peds ( 0 to 5 Years) and At-Risk Patients (6 to 49 Years) Discontinued 05/27/2017, 05/21/2016, 04/19/2013, Additional history exists Insurance [employer] ([id number]) [employer] ([id number]) Care Teams Rope Laying Machine Operator Relationship Specialty Start Date End Date Kera Maria MD PCP - General 08/01/20
--- OUTSIDE RECORDS SUMMARY | 2025-02-19 10:56 | XMS_ITS | Encounter Summary ---
Author Organization [employer] Address [address] [place] [address] [address] [place] [address] Care Team Providers Care Range Conservationist Name Role Phone Kera Maria MD Primary Care Provider [phone] Lev Smith PharmD Unavailable [phone] Encounter Details Date Type Department Care Team (Late st Contact Info) Description 08/09/2022 Abstract [facility] MEDICINE [address] [place] [address] [phone] Kera Maria MD [address] [place] [address] [phone] Social History Tobacco Use Types Packs/Day Years [...] Care Team (Late st Contact Info) Description 03/11/2025 10:45 AM EDT Office Visit [facility] MEDICINE [address] [place] [address] [phone] Kera Maria MD [address] [place] [address] [phone] 04/29/2025 10:30 AM EDT Medication Management [facility] MEDICINE [address] [place] [address] [phone] Lev Smith, PharmD [address] [place] [address] documented as of this encounter Procedures Procedure Name Priority Date/Time Associated Diagnosis Comments MAMMOGRAPHY Routine 08/06/2022 documented in this encounter Results * Mammography (08/06/2022) Mammogram perform Anatomical Region Laterality Modality Other Historical Provider HEALTH MAINTENANCE Final Result documented in this encounter Visit Diagnoses Not on filedocumented in this encounter Care Teams Range Conservationist Relationship Specialty Start Date End Date Kera Maria MD [address] [place] [address] PCP - General Family Medicine 07/22/18 Lev Smith, HermilaD [address] [place] [address] Pharmacist Internal Medicine 11/12/24 documented as of this encounter
== END 2025-02-19 11:19 | disposition home or self-care (01) ==
LOC: HO.HGI 10:47
PROVIDERS: PCP Family Medicine; Visit Provider Nurse Practitioner
DX: K21.9 Gastro-esophageal reflux disease without esophagitis (principal); K59.04 Chronic idiopathic constipation; D12.6 Benign neoplasm of colon, unspecified; K75.81 Nonalcoholic steatohepatitis (NASH)
CPT/HCPCS: 99213

== ENCOUNTER → 2025-02-19 10:47 | Outpatient (BNVA) | payer OTHER, SELFPAY | PROVIDERS: PCP Family Medicine; Visit Provider Nurse Practitioner | DX: Z71.2 Person consulting for explanation of examination or test findings (principal); K75.81 Nonalcoholic steatohepatitis (NASH); D12.6 Benign neoplasm of colon, unspecified; R14.0 Abdominal distension (gaseous); K21.9 Gastro-esophageal reflux disease without esophagitis | CPT/HCPCS: 99212 ==

== ENCOUNTER 2025-04-27 09:47 | Outpatient (REF) | payer OTHER, SELFPAY ==
--- NOTE | ~2025-04-27 | US_ITS ---
EXAMINATION: US COMPLETE ABDOMEN WITH LIVER ELASTOGRAPHY CLINICAL INFORMATION: AL[facility]ENDAREZ COMPARISON: Abdominal ultrasound November 2021 TECHNIQUE: Real-time imaging of the abdominal viscera. Noninvasive ultrasound liver fibrosis assessment is performed using Melissa ElastPQ point quantification shear wave elastography (pSWE) with a C5-2 MHz transducer. Multiple elastography samples are obtained. FINDINGS: PANCREAS: The visualized pancreatic head and body are normal in appearance. The remainder of the pancreas is obscured from visualization by the overlying bowel gas. ABDOMINAL AORTA: There is evidence of atherosclerotic disease. There is mild focal dilatation of the distal abdominal aorta measuring 2.2 cm. No aneurysm. INFERIOR VENA CAVA: Visualized portions are normal. LIVER: The liver demonstrates normal size, contour and echogenicity. No focal lesion or intrahepatic biliary duct dilatation. The right lobe measures 16.3 cm in length. The left lobe measures 8.8 cm in length. Portal flow is normal/hepatopedal Shear wave liver elastography median stiffness is 1.62 m/s (reference: normal median stiffness is 1.3 m/s or less). IQR/median stiffness to assess sampling precision is 0.06 (reference: good quality data set is IQR/median stiffness of 0.15 or less). GALLBLADDER: The gallbladder is physiologically distended without evidence of stones, sludge, polyps, wall thickening or pericholecystic fluid. COMMON BILE DUCT: Normal in caliber measuring 0.5 cm in diameter. RIGHT KIDNEY: No hydronephrosis. No renal calculi or focal parenchymal lesions. The kidney measures 10 cm in maximum dimension. LEFT KIDNEY: No hydronephrosis. No renal calculi or focal parenchymal lesions. The kidney measures 9.8 cm in maximum dimension. SPLEEN: Unremarkable. The spleen measures 9 cm in maximum dimension. FREE FLUID: None seen. There is a small periportal/peripancreatic lymph node measuring 1.1 x 0.5 x 0.7 cm with normal ultrasound morphology. US/US abdomen comp w elastography IMPRESSION: 1. Impression: Normal appearing liver. 2. Liver elastography: Liver Stiffness less than 1.7 m/s: In the absence of other known clinical signs, rules out compensated advanced chronic liver disease. REFERENCE: Society of Radiologists in Ultrasound Liver Stiffness Thresholds (2019): LIVER STIFFNESS THRESHOLDS: *Liver Stiffness equal or less than 1.3 m/s: High probability of being normal. *Liver Stiffness less than 1.7 m/s: In the absence of other known clinical signs, rules out compensated advanced chronic liver disease. *Liver Stiffness 1.7-2.1 m/s: Suggestive of compensated advanced chronic liver disease but need further test for confirmation. *Liver Stiffness over 2.1 m/s: Rules in compensated advanced chronic liver disease. *Liver Stiffness over 2.4 m/s: Suggestive of clinically significant portal hypertension. QUALITY OF DATA SET: *IQR/Median value equal or less than 0.15 implies a quality data set. *IQR/Median value over 0.15 implies a poor quality data set. SIGNIFICANT CHANGE FROM PRIOR EXAM: Significant change if liver stiffness measurement is 10% or greater from prior exam. OTHER CONSIDERATIONS: The stage of liver fibrosis may be overestimated in the setting of acute hepatitis, liver inflammation, elevated liver function tests, hepatic vascular congestion, obstructive cholestasis, non-fasting state, and infiltrative diseases such as amyloidosis and lymphoma. In some patients with NAFLD, the liver stiffness thresholds for compensated advanced chronic liver disease may be lower. In causes other than viral hepatitis and NAFLD, liver stiffness thresholds are not well established. Electronically signed by: Halley Noonan MD 04/27/2025 12:14 PM EDT
--- OUTSIDE RECORDS SUMMARY | 2025-04-27 11:14 | XMS_ITS | Encounter Summary ---
Author Organization [employer] Address [address] [facility] [address] [facility] [address] [place] [address] Care Team Providers Care Keyboard Specialist Name Role Phone Kera Maria MD Primary Care Provider [phone] Lev Smith PharmD Unavailable [phone] Encounter Details Date Type Department Care Team (Late st Contact Info) Description 04/09/2023 Orders Only [facility] CHC MED & PEDS [address] [place], [place] [phone] Juhi Onofre LPN Social History Tobacco Use [...] Care Team (Late st Contact Info) Description 04/29/2025 10:30 AM EDT Medication Management [facility] MEDICINE [address] [place] [phone] Lev Smith, PharmD [address] [place] [phone] 06/08/2025 11:30 AM EST Office Visit [facility] MEDICINE [address] [place] [phone] Kera Maria MD [address] [place] [address] [phone] documented as of this encounter Visit Diagnoses Not on filedocumented in this encounter Care Teams Keyboard Specialist Relationship Specialty Start Date End Date Kera Maria MD [address] [place], [place] [phone] PCP - General Family Medicine 07/22/18 Lev Smith PharmD [address] [place] [address] Pharmacist Internal Medicine 11/12/24 documented as of this encounter
--- OUTSIDE RECORDS SUMMARY | 2025-04-27 11:14 | XMS_ITS | Encounter Summary ---
Author Organization [employer] Address [address] [place] [address] Care Team Providers Care Mothers Helper Name Role Phone Kera Maria MD Primary Care Provider [phone] Lev Smith PharmD Unavailable [phone] Encounter Details Date Type Department Care Team (Late st Contact Info) Description 09/14/2024 Orders Only [facility] CHC MED & PEDS [address] [place], [place] [phone] ProviderChey MD Social History Tobacco Use Types [...] Description 04/29/2025 10:30 AM EDT Medication Management [facility] MEDICINE [address] [place] [phone] Lev Smith, PharmD [address] [place] [phone] 06/08/2025 11:30 AM EST Office Visit [facility] MEDICINE [address] [place] [address] [phone] Kera Maria MD [address] [place] [phone] documented as of this encounter Procedures Procedure Name Priority Date/Time Associated Diagnosis Comments HM COLONOSCOPY Routine 09/10/2024 1:05 PM EST documented in this encounter Results * Hm Colonoscopy (09/10/2024 1:05 PM EST) Historical Provider HEALTH MAINTENANCE Final Result documented in this encounter Visit Diagnoses Not on filedocumented in this encounter Care Teams Mothers Helper Relationship Specialty Start Date End Date Kera Maria MD [address] [place] [address] [phone] PCP - General Family Medicine 07/22/18 Lev Smith, PharmD [address] [place] [address] [phone] Pharmacist Internal Medicine 11/12/24 documented as of this encounter
--- OUTSIDE RECORDS SUMMARY | 2025-04-27 11:14 | XMS_ITS | Encounter Summary ---
Author Organization [employer] Address [address] [facility] [address] [place] [address] Care Team Providers Care Profile Mill Operator Tape Control Name Role Phone Kera Maria MD Primary Care Provider [phone] Lev Smith PharmD Unavailable [phone] Encounter Details Date Type Department Care Team (Late st Contact Info) Description 01/11/2023 Orders Only [facility] MEDICINE [address] [place] [address] [phone] Juhi Onofre LPN Social History Tobacco Use [...] Description 04/29/2025 10:30 AM EDT Medication Management [facility] MEDICINE [address] [place] [phone] Lev Smith, PharmD [address] [place] [address] [phone] 06/08/2025 11:30 AM EST Office Visit [facility] MEDICINE [address] [place] [address] [phone] Kera Maria MD [address] [place] [address] [phone] documented as of this encounter Visit Diagnoses Not on filedocumented in this encounter Care Teams Profile Mill Operator Tape Control Relationship Specialty Start Date End Date Kera Maria MD [address] [place], [place] [phone] PCP - General Family Medicine 07/22/18 Lev Smith PharmD [address] [place] [address] Pharmacist Internal Medicine 11/12/24 documented as of this encounter
--- OUTSIDE RECORDS SUMMARY | 2025-04-27 11:14 | XMS_ITS | Encounter Summary ---
Author Organization [employer] Address [address] [facility] [address] [place] [address] Care Team Providers Care Pipe Or Steam Fitter Furnace Installer Name Role Phone Kera Maria MD Primary Care Provider [phone] Lev Smith PharmD Unavailable [phone] Encounter Details Date Type Department Care Team (Late st Contact Info) Description 08/09/[address] [facility] MEDICINE [address] [place] [address] [phone] Kera Maria MD [address] [place] [address] [phone] Social History Tobacco Use Types Packs/Day Years [...] Description 04/29/2025 10:30 AM EDT Medication [address] [facility] MEDICINE [address] [place] [address] [phone] Lev Smith, PharmD [address] [place] [address] 06/08/2025 11:30 AM EST Office Visit [facility] MEDICINE [address] [place] [address] [phone] Kera Maria MD [address] [place] [phone] documented as of this encounter Visit Diagnoses Not on filedocumented in this encounter Care Teams Pipe Or Steam Fitter Furnace Installer Relationship Specialty Start Date End Date Kera Maria MD [address] [place] [address] PCP - General Family Medicine 07/22/18 Lev Smith, HermilaD [address] [place] [phone] Pharmacist Internal Medicine 11/12/24 documented as of this encounter
--- OUTSIDE RECORDS SUMMARY | 2025-04-27 11:14 | XMS_ITS | Encounter Summary ---
Author Organization [employer] Address [address] [facility] 7t [place] [address] Care Team Providers Care Riveting Machine Operator Automatic Name Role Phone Kera Maria MD Primary Care Provider [phone] Lev Smith PharmD Unavailable [phone] Encounter Details Date Type Department Care Team (Late st Contact Info) Description 03/11/2023 Orders Only [facility] [address] [place] [address] Elena Unger LPN Social History Tobacco Use [...] Description 04/29/2025 10:30 AM EDT Medication Management [facility] [address] [place] [phone] Lev Smith, PharmD [address] [place] [phone] 06/08/2025 11:30 AM EST Office Visit [facility] [address] [place] [phone] Kera Maria MD [address] [place] [address] [phone] documented as of this encounter Visit Diagnoses Not on filedocumented in this encounter Care Teams Riveting Machine Operator Automatic Relationship Specialty Start Date End Date Kera Maria MD [address] [place], [place] [phone] PCP - General Family Medicine 07/22/18 Lev Smith PharmD [address] [place] [address] Pharmacist Internal Medicine 11/12/24 documented as of this encounter
--- OUTSIDE RECORDS SUMMARY | 2025-04-27 11:14 | XMS_ITS | Encounter Summary ---
Author Organization [employer] Address [address] [facility] 7t [place] [address] Care Team Providers Care Manager Discovery Name Role Phone Kera Maria MD Primary Care Provider [phone] Lev Smith PharmD Unavailable [phone] Encounter Details Date Type Department Care Team (Late st Contact Info) Description 10/15/2022 Orders Only [facility] [address] [place] [address] [phone] Juhi Onofre LPN Social History Tobacco Use [...] Description 04/29/2025 10:30 AM EDT Medication Management [facility] [address] [place] [phone] Lev Smith, PharmD [address] [place] [address] [phone] 06/08/2025 11:30 AM EST Office Visit [facility] [address] [place] [phone] Kera Maria MD [address] [place] [address] [phone] documented as of this encounter Visit Diagnoses Not on filedocumented in this encounter Care Teams Manager Discovery Relationship Specialty Start Date End Date Kera Maria MD [address] [place], [place] [phone] PCP - General Family Medicine 07/22/18 Lev Smith PharmD [address] [place] [address] Pharmacist Internal Medicine 11/12/24 documented as of this encounter
--- OUTSIDE RECORDS SUMMARY | 2025-04-27 11:14 | XMS_ITS | Encounter Summary ---
Author Organization [employer] Address [address] [facility] 7t [place] [address] Care Team Providers Care Respiratory Care Assistant Name Role Phone Kera Maria MD Primary Care Provider [phone] Lev Smith PharmD Unavailable [phone] Encounter Details Date Type Department Care Team (Late st Contact Info) Description 10/15/2022 Orders Only [facility] [address] [place] [address] Elena Unger LPN Social History Tobacco Use [...] Description 04/29/2025 10:30 AM EDT Medication Management [facility] [address] [place] [phone] Lev Smith, PharmD [address] [place] [phone] 06/08/2025 11:30 AM EST Office Visit [facility] [address] [place] [phone] Kera Maria MD [address] [place] [address] [phone] documented as of this encounter Visit Diagnoses Not on filedocumented in this encounter Care Teams Respiratory Care Assistant Relationship Specialty Start Date End Date Kera Maria MD [address] [place], [place] [phone] PCP - General Family Medicine 07/22/18 Lev Smith PharmD [address] [place] [address] Pharmacist Internal Medicine 11/12/24 documented as of this encounter
--- OUTSIDE RECORDS SUMMARY | 2025-04-27 11:14 | XMS_ITS | Encounter Summary ---
Author Organization [employer] Address [address] [facility] 7t [place] [address] Care Team Providers Care Lumber Press Operator Name Role Phone Kera Maria MD Primary Care Provider [phone] Lev Smith PharmD Unavailable [phone] Reason for Referral * Consultation (Routine) - Canceled Specialty Diagnoses / Procedures Referred By Contac t Referred To Contact Pharmacy Diagnoses Type 2 diabetes mellitus with hyperglycemia, with long-term current use of insulin (HCC) Essential hypertension Kera Maria MD [address] [place] [phone] Phone: tel: fax: Referral ID Status Reason Start Date Expiration Date V isits Requested Visits Authorized [id number] Canceled Consult and Treat 10/16/2024 10/16/2025 6 6 Encounter Details Date Type Department Care Team (Late st Contact Info) Description 10/16/2024 Orders Only [facility] [address] [place] [address] [phone] Kera Maria MD [address] [place], [place] [phone] Type 2 diabetes mellitus with hyperglycemia, with [...] Description 04/29/2025 10:30 AM EDT Medication Management [facility] [address] [place] [phone] Lev Smith, PharmD [address] [place] [phone] 06/08/2025 11:30 AM EST Office Visit [facility] [address] [place] [phone] Kera Maria MD [address] [place] [address] Scheduled Referrals Name Type Priority Associated Diagnoses Orde r Schedule Referral to Pharmacy CDTM Outpatient Referral Routine Type 2 diabetes mellitus with hyperglycemia, with long-term current use of insulin ([facility]) Essential hypertension Ordered: 10/16/2024 documented as of this encounter Visit Diagnoses Diagnosis Type 2 diabetes mellitus with hyperglycemia, with long-term current use of insulin (HCC)- Primary Essential hypertension Unspecified essential hypertension Dyslipidemia Other and unspecified hyperlipidemia documented in this encounter Care Teams Lumber Press Operator Relationship Specialty Start Date End Date Kera Maria MD [address] [place] [address] PCP - General Family Medicine 07/22/18 Lev Smith PharmD [address] [place] [phone] Pharmacist Internal Medicine 11/12/24 documented as of this encounter
--- OUTSIDE RECORDS SUMMARY | 2025-04-27 11:14 | XMS_ITS | Clinical Summary ---
Demographics Address [address] [facility] [address] [place] [address] Mobile Phone Work Phone Home Phone Preferred Language es Marital Status Muslim Affiliation Unknown Race Other Race Ethnic Group Unknown Author Organization [employer] Address [address] [facility] [address] [place] [address] Care Team Providers Care Raw Cheese Worker Name Role Phone Kera Maria MD Primary Care Provider [phone] Lev Smith PharmD Unavailable [phone] Allergies Active Allergy Reactions Criticality Noted Date Comments Latex 06/21/2023 Metformin Diarrhea 12/15/2024 Wound Dressing Adhesive High 09/10/2024 Other Reaction(s): RASH-LOCALIZED Medications Misc. Devices (Pulse Oximeter For Finger) miscIndications:C [...] Ultra Strength 180 MG capsule 023 Active montelukast (Singulair) 10 MG tablet TAKE 1 TABLET BY MOUTH AT BEDTIME 90 tablet 3 024 Active Dulaglutide (Trulicity) 1.5 MG/0.5ML solution auto-injectorIndi cations:Type 2 diabetes mellitus with hyperglycemia, with long-term current use of insulin (HCC) Inject 1.5 mg under the skin 1 (one) time per week. 2 mL 11 024 Active alendronate (Fosamax) 70 MG tablet Take [...] tablet 3 Active ezetimibe (Zetia) 10 MG tabletIndications :Mixed hyperlipidemia TAKE 1 TABLET BY MOUTH AT BEDTIME 90 tablet 3 Active losartan (Cozaar) 50 MG tablet TAKE 1 TABLET BY MOUTH AT BEDTIME 90 tablet 3 Active Continuous Glucose Psychiatry Resident (FreeStyle La 2 [place]) deviceIndications :Type 2 diabetes mellitus with hyperglycemia, with long-term current use of insulin ([facility]) Scan sensor every 8 hours 1 each 1 Active Continuous Glucose Sensor (FreeStyle La 2 Sensor) miscIndications:T ype 2 diabetes mellitus with hyperglycemia, with long-term current use of insulin ([facility]) Apply 1 sensor every 14 days 2 each Active glucose blood (FreeStyle Precision Adeel Test) test strip Use to test blood sugar 3 times daily 100 each 025 2025 Active UltiCare Short Pen [place] 31G X 8 MM miscIndications:T ype 2 diabetes mellitus with hyperglycemia ([facility]) Use as instructed 100 each 025 Active Aspirin Low Dose 81 MG EC tablet TAKE 1 TABLET BY MOUTH EVERY MORNING 30 tablet 11 Active cholecalciferol (Vitamin D-3) 25 MCG tablet TAKE 1 TABLET BY MOUTH EVERY MORNING 30 tablet 11 Active azelastine (Astelin) 0.1 % nasal spray Active Breo Ellipta 200-25 MCG/ACT aerosol powder Active furosemide (Lasix) 40 MG tablet Take 40 mg by mouth in the morning. Active nitroglycerin (Nitrostat) 0.4 MG SL tablet DISSOLVE 1 TABLET UNDER THE TONGUE EVERY 5 MINUTES NEEDED FOR CHEST PAIN. CALL 911 IF NO RELIEF NO MORE THAN 3 TABLETS Active solifenacin (VESIcare) 5 MG tablet Take 1 tablet by mouth Once per day. Active celecoxib (CeleBREX) 200 MG capsule TAKE 1 CAPSULE BY MOUTH EVERY TWELVE HOURS NEEDED FOR PAIN WITH FOOD 40 capsule Active pioglitazone (Actos) 15 MG tabletIndications :Type 2 diabetes mellitus with hyperglycemia, with long-term current use of insulin (HCC) Take 1 tablet (15 mg) by mouth Once per day. 30 tablet 2025 Active rosuvastatin (Crestor) 40 MG tablet TAKE 1 TABLET BY MOUTH AT BEDTIME 90 tablet Active traZODone (Desyrel) 50 MG tabletIndications :Depression, unspecified depression type TAKE 1 TABLET BY MOUTH AT BEDTIME 90 tablet Active Lancet Devices (Lancing Device) miscIndications:T ype 2 diabetes mellitus with other specified complication, unspecified whether petroleum terminal plant operator insulin use (HCC) Use as directed 1 each Active Lancets 33G miscIndications:T ype 2 diabetes mellitus with other specified complication, unspecified whether petroleum terminal plant operator insulin use (HCC) Use to check BG up to 3 times daily as needed for hypoglycemia or sensor failure 100 each Active loratadine (Claritin) 10 MG tablet Active insulin glargine (Lantus SoloStar) 100 UNIT/ML pen INJECT 14 UNITS SUBCUTANEOUSLY EVERY EVENING DIRECTED 15 mL Active fluticasone (Flonase) 50 MCG/ACT nasal sprayIndications: Allergic rhinitis, unspecified seasonality, unspecified trigger USE 1 SPRAY IN EACH NOSTRIL ONCE DAILY 16 g 1 025 Active Alcohol Swabs (Alcohol Prep) 70 % padsIndications:T ype 2 diabetes mellitus with hyperglycemia (HCC) USE DIRECTED WITH INSULIN 100 each 025 Active Alcohol Swabs (Alcohol Prep) 70 % padsIndications:T ype 2 diabetes mellitus with hyperglycemia (HCC) USE DIRECTED WITH INSULIN 100 each 024 2024 Discontinued fluticasone (Flonase) 50 MCG/ACT nasal sprayIndications: Allergic rhinitis, unspecified seasonality, unspecified trigger Administer 1 spray into each nostril Once per day. Shake gently. Before first use, prime pump. After use, clean tip and replace cap. 16 g 1 025 2024 Discontinued Active Problems Problem Noted Date Diagnosed Date Osteopenia 09/07/2024 Assessment & Plan (12/15/2024 5:28 AM EDT): - last DEXA in Aug 2023. The lowest T-score -2.2 in lumbar spine; -1.9 in femoral neck - continue alendronate, started in 2023 Assessment & Plan (09/11/2024 2:29 PM EST): [...] (obstructive sleep apnea) 06/20/2023 Assessment & Plan (03/21/2025 7:32 PM EDT): -Sleep study on 10/28/18 confirmed BART -Followed by sleep clinic since 05/2019, last seen on 10/17/21, BiPAP setting was adjusted -Continue BiPAP IPAP 9 cmH2O and EPAP 5 cmH2O -?Tx for PLMS Assessment & Plan (09/08/2024 10:23 AM EST): [...] liver disease (MASLD) 06/20/2023 Assessment & Plan (03/21/2025 7:27 PM EDT): - following with [facility] - last US in November 2021 - FIB 4 index 2.13 - Consider updating US, if it is not done by GI yet Assessment & Plan (09/08/2024 10:24 AM EST): - following with [facility] - last US in November 2021 Assessment & Plan (05/29/2024 3:20 PM EST): - following with [facility] - last US in November 2021 Assessment & Plan (06/20/2023 5:47 AM EST): - following with [facility] - last US in November 2021 Restrictive airway disease 06/20/2023 Assessment & Plan (05/29/2024 3:18 PM EST): - evaluated by operations mgr - last PFT in December 2022, no obstructive airway disease / RAD - breathing exercise Assessment & Plan (06/20/2023 6:01 AM EST): - evaluated by operations mgr - last PFT in December 2022, no obstructive airway disease / RAD - breathing exercise Proteinuria 10/28/2020 Chronic interstitial cystitis 11/25/2017 Assessment & Plan (05/29/2024 3:22 PM EST): Seen by [facility] provider on 02/08/22 for f/u recurrent UTI and IC. Pt currently on Elmiron and nitrofurantoin per note. Assessment & Plan (06/20/2023 5:26 AM EST): Seen by [facility] provider on 02/08/22 for f/u recurrent UTI and IC. Pt currently on Elmiron and nitrofurantoin per note. Dyslipidemia 08/29/2017 06/12/2023 Assessment & Plan (03/21/2025 7:19 PM EDT): -Last lipid profile: 12/15/2024 -Medication: Crestor 40 mg qhs; Zetia 10 [...] minimize her ASCVD risk. Assessment & Plan (12/15/2024 10:45 PM EDT): -Last lipid profile: 12/15/2024 -Medication: Crestor 40 mg qhs; Zetia 10 [...] minimize her ASCVD risk. Assessment & Plan (09/08/2024 10:25 AM EST): [...] of colon 08/29/2017 023 Assessment & Plan (03/21/2025 7:28 PM EDT): - Colonoscopy in 2012 showed tubular adenoma - Colonoscopy in Mar 2018 showed no tubular adenoma; recommended to repeat in 5-7 years - Colonoscopy 09/10/[address] Montoya. Tubular adenoma. Diverticulosis. Hemorrhoids. Recommended to repeat in 5 to 7 years Assessment & Plan (09/11/2024 2:27 PM EST): [...] be determined Peripheral venous insufficiency 05/21/2016 06/20/2023 Assessment & Plan (03/21/2025 7:19 PM EDT): - following with [facility], last seen in September 2024 - last venous study in Apr 2024, Hx right GSV ablation. Left GSV, SSV, and right CFV were competent. - continue leg elevation, compression stocking, and low-sodium diet Ischemic heart disease 01/25/2016 Assessment & Plan (03/21/2025 7:16 PM EDT): - CABG in 2006 - Following with [facility], last note from September 2024 - Stress test and myocardial perfusion imaging in Jun 2022, no ischemia - continue secondary preventative measures. - patient requests a referral to [facility] Assessment & Plan (09/08/2024 10:23 AM EST): [...] preventative measures. Gastroesophageal reflux disease 10/12/2015 06/12/2023 Assessment & Plan (03/21/2025 7:28 PM EDT): - Following with [facility], last seen in February 2025 - Prescribed omeprazole 20 mg daily and famotidine 20 mg nightly Mixed stress and urge urinary incontinence 10/1106/12/2023 Assessment & Plan (03/12/2025 12:43 AM EDT): -following with urology Assessment & Plan (09/11/2024 2:28 PM EST): -following with urology Atherosclerosis of [place] co ronary artery of [place] heart without angina pectoris 04/25/2015 06/12/2023 Insomnia 04/25/2015 06/12/2023 Overweight 04/25/2015 06/12/2023 Essential hypertension 04/25/2015 Assessment & Plan (03/12/2025 12:40 AM EDT): -Goal BP < 140/90 per JNC-8 and < 130/80 per ACC/AHA guideline -Co-managed with plate painter, networking administrator, and pharmacist -Slightly elevated BP, possibly due to her pain and current condition -Continue working on lifestyle modifications -Recommended self-monitoring BP. -Continue working on lifestyle modifications. -Continue current medications: amlodipine 10 mg daily; losartan 50 mg daily -Treatment Hx: metoprolol - discontinued due to dizziness Assessment & Plan (12/19/2024 4:40 PM EDT): -Goal BP < 140/90 per JNC-8 and < 130/80 per ACC/AHA guideline -Co-managed with plate painter, networking administrator, and pharmacist -Slightly elevated BP, possibly due to her pain and current condition -Continue working on lifestyle modifications -Recommended self-monitoring BP. -Continue working on lifestyle modifications. -Continue current medications: amlodipine 10 mg daily; losartan 50 mg daily -Treatment Hx: metoprolol - discontinued due to dizziness Assessment & Plan (09/08/2024 10:23 AM EST): -Goal BP < 140/90 per JNC-8 and < 130/80 per ACC/AHA guideline -Co-managed with plate painter and networking administrator -Slightly elevated BP, possibly due to her [...] < 130/80 per ACC/AHA guideline -Co-managed with plate painter and networking administrator -Slightly elevated BP, possibly due to her [...] < 130/80 per ACC/AHA guideline -Co-managed with plate painter and networking administrator -Slightly elevated BP, possibly due to her pain and current condition -Continue working on lifestyle modifications -Recommended self-monitoring BP. -Continue working on lifestyle modifications. -Continue current medications: amlodipine 10 mg daily; losartan 50 mg daily -Treatment Hx: metoprolol - discontinued due to dizziness Type 2 diabetes mellitus 01/05/2013 023 Assessment & Plan (03/21/2025 7:22 PM EDT): - A1C 7.3% on 03/11/25, improved from 8.4% on 12/15/24 -Continue working on lifestyle modifications -Continue Trulicity 1.5 mg weekly, titrate up as tolerated. Pt wants to continue at current dose. -SGLT-2 inhibitor has a great CV benefit for her, but she has urinary problem, so we will not try at this time unless there will be a new SGLT-2 inhibitor without side effect -Continue basal insulin 14 units at bedtime. Titrate up as tolerate. - Start pioglitazone 15 mg daily, increase dose as tolerated Treatment Hx: Glipizide was discontinued due to increased risk of hypoglycemia. Patient self-discontinued Lantus when she started using GLP1RA. Metformin dose was adjusted due to GI symptoms, and discontinued since patient could not tolerate the lowest dose Last eye exam: [facility]. 01/06/25, No diabetic retionpathy, s/p cataract surgery Last foot exam: 12/15/24 Last microalbumin test: 12/15/24 UACR 67.9 Last lipid profile: 12/15/24 Last dental exam: Immunizations: Due for COVID, but patient declines. Aspirin use: Prescribed. Assessment & Plan (12/15/2024 10:46 PM EDT): - A1C 8.4% on 12/15/24 improved from 12.3% on 09/08/24 -Continue working on lifestyle modifications -Pt stopped taking Metformin due to diarrhea. Unable to tolerate even in lower dose. Will discontinue Metformin. -Continue Trulicity 1.5 mg weekly, titrate up as tolerated. Pt wants to continue at current dose. -SGLT-2 inhibitor has a great CV benefit for her, but she has urinary problem, so we will not try at this time unless there will be a new SGLT-2 inhibitor without side effect -Continue basal insulin 14 units at bedtime. Titrate up as tolerate. - Start pioglitazone 15 mg daily, increase dose as tolerated Treatment Hx: Glipizide was discontinued due to increased risk of hypoglycemia. Patient self-discontinued Lantus when she started using GLP1RA. Metformin dose was adjusted due to GI symptoms. Last eye exam: 01/05/23, no diabetic retionpathy, s/p cataract surgery Last foot exam: 12/15/24 Last microalbumin test: 12/15/24 UACR 67.9 Last lipid profile: 12/15/24 Last dental exam: Immunizations: Due for COVID, but patient declines. Aspirin use: Prescribed. Assessment & Plan (09/11/2024 2:32 PM EST): [...] tract infection 04/22/2012 06/12/2023 Assessment & Plan (03/12/2025 12:43 AM EDT): - following with [facility], last seen in May 2023 - last UTI in Feb 2024, breakthrough (on nitrofurantoin prophylaxis). - urine culture in Feb 2024 grew Klebsiella. Treated with TMP/SMX. - relative contraindication to SGLT2i Assessment & Plan (09/11/2024 2:28 PM EST): - following with [facility], last seen in May 2023 - last UTI in Feb 2024, breakthrough (on nitrofurantoin prophylaxis). - urine culture in Feb 2024 grew Klebsiella. Treated with TMP/SMX. - relative contraindication to SGLT2i Assessment & Plan (05/24/2024 6:20 AM EST): - following with [facility], last seen in May 2023 - [...] Plan (06/20/2023 5:25 AM EST): Seen by [facility] provider on 02/08/22 for f/u recurrent UTI and IC. Pt currently on Elmiron and nitrofurantoin. -Last UTI DECEMBER 2021. -Cont Elmiron and nitrofurantoin. 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/16/2005 06/12/2023 Resolved Problems Problem Noted Date Diagnosed Date Resolved Date Disorder of vein 06/26/2018 06/12/2023 06/20/2023 Encounters Date Type Department Care Team Description 04/16/2025 11:00 AM EDT Clinical Support [facility] [address] [place] [address] Anna Santos RN Memory changes 04/16/2025 Travel 04/16/2025 Refill [facility] [address] [place] [address] Kera Maria MD Type 2 diabetes mellitus with hyperglycemia (CMS/HCC) 04/13/2025 Refill [facility] [address], [place] [phone] Kera Maria MD Allergic rhinitis, unspecified seasonality, unspecified trigger 03/11/2025 10:45 AM EDT Office Visit [facility] [address] [place] [phone] Kera Maria MD Essential hypertension (Primary Dx); Type 2 diabetes mellitus with hyperglycemia, with long-term current use of insulin (CMS/HCC); Metabolic dysfunction-associated steatotic liver disease (MASLD); Gastroesophageal reflux disease, unspecified whether esophagitis present; Tubular adenoma of colon; Mixed stress and urge urinary incontinence; Recurrent urinary tract infection; Ischemic heart disease; Atherosclerosis of [place] coronary artery of [place] heart without angina pectoris; Peripheral venous insufficiency; S/P CABG x 3; Dyslipidemia; BART (obstructive sleep apnea); Neck mass; Throat pain 03/11/2025 Travel 03/10/2025 Telephone [facility] [address] [place] [address] Kera Maria MD chart prep 01/28/2025 Travel from Last 3 Months Immunizations Immunization Administration [...] Tobacco: Never Tobacco Cessation:Counseling Given: Not Answered Depression Answer Date Recorded Patient Health Questionnaire-9 Score 0 03/11/2025 Patient Health Questionnaire-9 Score 0 03/11/2025 Last PHQ-9: Questionnaire Data Not on file 0 03/11/2025 Housing Stability Answer Date Recorded What is your housing situation today? I have brenelena yadav 03/11/[address] you li ve. Do you have problems with any of the following? None of the above 03/11/2025 Food Insecurity Answer Date Recorded Within the past 12 months, y ou worried that your food would run out before you got money to buy more: Never True 03/11/2025 Within the past 12 months,th e food you bought just didn't last and you didn't have enough money to get more: Never True Transportation Answer Date Recorded In the past 12 months, has l ack of transportation kept you from medical appts, meetings, work or from getting things needed for daily living? No 03/11/2025 Utilities Answer Date Recorded In the past 12 months, has t he electric, gas, oil or water company threatened to shut off services in your home? No 03/11/2025 Depression Answer Date Recorded Patient Health Questionnaire-2 Score 0 03/11/2025 Internet Access Answer Date Recorded Internet Access Q1 Yes 03/11/2025 Internet Access Q2 Not on file 03/11/2025 Comments Unknown Sex and Gender Information Value Date Recorded Sex Assigned at Female 05/21/2022 10:20 AM EDT Legal Sex Female 10:20 AM EDT Gender Identity Female 05/21/2022 10:20 AM EDT Sexual Orientation Straight 05/21/2022 10 :20 AM EDT Last Filed Vital Signs Vital Sign Reading Time Taken Comments Blood Pressure 110/60 03/11/2025 10:49 AM EDT Pulse 63 03/11/2025 10:49 AM EDT Temperature 35.7 C (96.3 F) 03/11/2025 10:49 AM EDT Respiratory Rate 20 03/11/2025 10:4 9 AM EDT Oxygen Saturation 98% 05/25/2024 10: 08 AM EST Inhaled Oxygen Concentration - - Weight 76.1 kg (167 lb 12.8 oz) 025 10:49 AM EDT Height 162.6 cm (5' 4 ) 03/11/2025 10:4 9 AM EDT Body Mass Index 28.8 03/11/2025 10:49 AM EDT Plan of Treatment Upcoming Encounters Date Type Department Care Team (Late st Contact Info) Description 04/29/2025 10:30 AM EDT Medication Management [facility] [address] [place] [phone] Lev Smith, PharmD [address] [place] [phone] 06/08/2025 11:30 AM EST Office Visit [address] [phone] Kera Maria MD [address] [place] [address] Health Maintenance Due Date Last Done Comments CT Colonography 1950 FIT DNA/Cologuard 1950 FIT 1950 FOBT 1950 Sigmoidoscopy 1950 RSV Patients and Patients Aged 60 years or older (1 - Risk 60-74 years 1-dose series) 2011 COVID-19 Vaccine ( season) 2025 08/23/2021, 10/21/2020, 09/23/2020 Influenza Vaccine (#1) 2025 , 06/20/2023, 04/04/2022, Additional history exists Alcohol/Substance Use Screening 05/25/2025 05/25/2024 Diabetes: Hemoglobin A1C 06/11/2025 025, 12/15/2024, 09/08/2024, Additional history exists Mammogram 11/28/2025 11/29/2023, 07/22, 08/06/2022, Additional history exists Diabetes: Foot Exam 12/15/2025 12/15/2024, 12/15/2024, 12/15/2024, Additional history exists Diabetes: Urine Protein Screening 12/15/2025 12/15/2024, 06/20/2023, 05/29/2021 Lipid Panel 12/15/2025 12/15/2024, 11/20, 06/20/2023, Additional history exists Depression Screening 03/11/2026 03/11/2025, 03/11/20 25 SDOH Screening 03/11/2026 03/11/2025 Tobacco Screening 03/21/2026 03/21/2025 Eye Exam 01/06/2027 01/06/2025, 01/06/2024 Colonoscopy 09/10/2029 09/10/2024, 04/01/2018 Colorectal Cancer Screening 09/10/2029 DTaP/Tdap/Td Vaccines (3 - Td or Tdap) 02/16/2031 02/16/2021, 04/22/2012, 04/07/2008 Hepatitis B Vaccines Completed 03/08/2017, 02/25/2015, 01/21/2014 Pneumococcal Vaccine: 50+ Years Completed 05/27/2017, 05/21/2016, 04/19/2013, Additional history exists Zoster Vaccines Completed 01/29/2020, 08/23, 02/25/2015 Hepatitis A Vaccines Completed 11/26/2024, 05/25/20 24 [...] Name Priority Date/Time Associated Diagnosis Comments POCT GLYCATED HEMOGLOBIN, TOTAL Routine 03/11/2025 10:53 AM EDT Type 2 diabetes mellitus with hyperglycemia, with long-term current use of insulin ([facility]) POCT GLUCOSE Routine 03/11/2025 10:53 AM EDT Type 2 diabetes mellitus with hyperglycemia, with long-term current use of insulin ([facility]) DIABETES EYE EXAM Routine 01/06/2025 9:58 AM EDT ALBUMIN, RANDOM URINE W/CREATININE Routine 12/15/2024 10:58 AM EDT LIPID PANEL WITH REFLEX TO DIRECT LDL Routine 12/15/2024 10:58 AM EDT Dyslipidemia COLONOSCOPY Routine 09/10/2024 1:05 PM EST BI MAMMOGRAM SCREENING TOMOSYNTHESIS BILATERAL Routine 11/29/2023 10:25 AM EDT from Last 3 Months or Most Recently Relevant to Health Maintenance Results * (ABNORMAL) POCT HGB A1C (03/11/2025 10:53 AM EDT) Hemoglobin A1C 7.3(A) 4.0 - 5.7 % QC Media Lot # [id number] Lot# Expiration Date ,[id number] Blood 03/11/2025 10:5 3 AM EDT Kera Maria MD POINT OF CARE TEST ENTER/EDIT OR DERABLES Final Result * POCT Glucose (03/11/2025 10:53 AM EDT) Glucose Blood, POC 134 60 - 200 mg/dL QC Media Lot # [id number] Lot# Expiration Date [id number] Blood Capillary blood specimen / Unknown 03/11/2025 10:53 AM EDT Kera Maria MD POINT OF CARE TEST ENTER/EDIT OR DERABLES Final Result * Diabetes Eye Exam (01/06/2025 9:58 AM EDT) [facility] Provider HEALTH MAINTENANCE Final Result * Lipid Panel with Reflex to Direct LDL (12/15/2024 10:58 AM EDT) Triglycerides 138 <150 mg/dL [facility] Comment:Desirable Triglyceri de: less than 150 mg/dLBorderline High Triglyceride 150-199 mg/dLHigh Triglyceride: 200-499 mg/dLVery High Triglyceride: greater than or equal to 5OO mg/dL Cholesterol 116 <200 mg/dL [facility] Comment:Desirable Cholestero l: less than 200 mg/dLBorderline High Cholesterol: 200-239 mg/dLHigh Cholesterol: greater than 239 mg/dL LDL Cholesterol Calculated 43 <100 mg/dL [facility] Comment:Desirable LDL: less than 100 mg/dLNear Optimal/Above Optimal LDL: 110- 129 mg/dLBorderline High LDL: 130-159 mg/dLHigh LDL: 160-189 mg/dLVery High LDL: greater than or equal to 190 mg/dL HDL Cholesterol 46 >40 mg/dL [facility] Comment:Desirable HDL: great er than 40 mg/dL Note: This HDL assay may give artificially low results in patients with liver disease. Blood 12/15/2024 10:5 8 AM EDT 12/15/2024 1:21 PM EDT Kera Maria MD LAB BLOOD ORDERABLES Final Resul t [facility] [address] [place] [address] [phone] * (ABNORMAL) Albumin, Random Urine W/Creatinine (12/15/2024 10:58 AM EDT) Creatinine, Urine 16.18 mg/dL [facility] Microalbumin Urine 11.0 mg/L [facility] Microalbum Creatinine Ratio Ur 67.9(H) <30 ug/mg cr [facility] Comment:Albumin/Creatinine R atio Reference Ranges: Normal: < 30 ug/mg creatinine Microalbuminuria: 30 - 300 ug/mg creatinineClinical Albuminuria: > 300 ug/mg creatinine 12/15/2024 10:5 8 AM EDT 12/15/2024 1:16 PM EDT Kera Maria MD LAB URINE ORDERABLES Final Resul t [facility] [address] [place] [address] [phone] * Hm Colonoscopy (09/10/2024 1:05 PM EST) us Historical Provider HEALTH MAINTENANCE Final Result * BI Mammogram Screening Tomosynthesis Bilateral (11/29/2023 10:25 AM EDT) Anatomical Region Laterality Modality Breast Bilateral Mammography 11/29/2023 10:2 5 AM EDT Narrative 12/27/2023 9:22 AM EDT [facility] [address] [place] [address] Mammography Report Signed Patient: Sofía Penny MR#: [id number] : 1950 Acct:[id number] Age/Sex: 73 / F ADM Date: 11/29/23 Loc: [facility] Attending Dr: Kera Maria MD Ordering Physician: Kera Maria MD Results: 1Negative Date of Service: 11/29/23 Follow Up: 1 Year From Orig inal Mammogram Procedure(s): MM tomosynthesis screening BI Accession Number(s): [id number] cc: Kera Maria MD EXAMINATION: MM SCREENING [...] in OV> 12/27/23 0918 DD/ 1025 TD/TT: Robotic Maintenance Technician: Procedure Note Donotuseinterpreter, Image - 12/27/2023 [facility] [address] [place] [address] Mammography Report Signed Patient: Kaylee Penny#: [id number] : 1Acct:[id number] Age/Sex: 73 / FADM Date: 11/29/23 Loc: [facility] Attending Dr: Kera Maria MD Ordering Physician: Kera Maria MDResults: 1Negative Date of Service: 11/29/23Follow Up: 1 Year From Orig inal Mammogram Procedure(s): MM tomosynthesis screening BI Accession Number(s): [id number] cc: Kera Maria MD EXAMINATION: MM SCREENING [...] in OV> 12/27/23 0918 DD/ 1025 TD/TT: Robotic Maintenance Technician: Kera Maria MD IMG BI PROCEDURES Edited Result - Final from Last 3 Months or Most Recently Relevant to Health Maintenance Insurance [facility] Care Teams Raw Cheese Worker Relationship Specialty Start Date End Date Kera Maria MD [address] [place] [address] PCP - General Family Medicine 07/22/18 Lev Smith, PharmD [address] [place] [address] Pharmacist Internal Medicine 11/12/24
--- OUTSIDE RECORDS SUMMARY | 2025-04-27 11:14 | XMS_ITS | Encounter Summary ---
Author Organization [employer] Address [address] [facility] 7t [place] [address] Care Team Providers Care Pipeline Operator Name Role Phone Kera Maria MD Primary Care Provider [phone] Lev Smith PharmD Unavailable [phone] Reason for Referral * Imaging (Routine) - Closed Specialty Diagnoses / Procedures Referred By Contac t Referred To Contact Radiology Diagnoses Closed fracture of single pubic ramus of pelvis, right, initial encounter (CMS/HCC) (HCC) Postmenopause Osteoporosis screening declined Procedures BD DEXA Axial Kera Maria MD [address] [place] [address] Phone: tel: fax: [address] Phone: tel: fax: Referral ID Status Reason Start Date Expiration Date Visits Re quested Visits Authorized [id number] Closed 08/26/2023 08/25/2024 1 1 Encounter Details Date Type Department Care Team (Late st Contact Info) Description 08/26/2023 Orders Only [facility] [address] [place] [address] [phone] Kera Maria MD [address] [place], [place] [phone] Closed fracture of single pubic ramus of [...] Description 04/29/2025 10:30 AM EDT Medication Management [facility] [address] [place] [address] Lev Smith, HermilaD [address] [place] [address] 06/08/2025 11:30 AM EST Office Visit [facility] [address] [place] [address] Kera Maria MD [address] [place] [address] documented as of this encounter Procedures Procedure Name Priority Date/Time Associated Diagnosis Comments BD DEXA AXIAL Routine 09/13/2023 9:20 AM EST Closed fracture of single pubic ramus of pelvis, right, initial encounter ([facility]) Postmenopause Osteoporosis screening declined documented in this encounter Results * BD DEXA Axial (09/13/2023 9:20 AM EST) Anatomical Region Laterality Modality Body Radiographic Collette ging 09/13/2023 9:20 AM EST Narrative 09/13/2023 5:44 PM EST [facility] [address] [place], [place] [address] Mammography Report Signed Patient: Sofía Penny MR#: [id number] : 1950 Acct:[id number] Age/Sex: 73 / F ADM Date: 09/13/23 Loc: MAMMO Attending Dr: Kera Maria MD Ordering Physician: Kera Maria MD Results: Date of Service: 09/13/23 Follow Up: Procedure(s): XR DEXA axial skeleton Accession Number(s): [id number] cc: Kera Maria MD EXAMINATION: BONE DENSITOMETRY CLINICAL INDICATION: Postmenopausal. COMPARISON: This is the patient's baseline examination. TECHNIQUE: Using a Seniorlink DXA System (software version: 13.1) manufactured by [employer], dual-energy x-ray absorptiometry was performed of the [...] in OV> 09/13/23 1740 DD/ 0920 TD/TT: Apartment Property Manager: DOROTHEA Procedure Note Donotuseinterpreter, Image - 09/13/2023 [facility] [address] [place] [address] Dr. Amado, [place] [address] Mammography Report Signed Patient: Kaylee Penny#: [id number] : 1Acct:[id number] Age/Sex: 73 / FADM Date: 09/13/23 Loc: MAMMO Attending Dr: Kera Maria MD Ordering Physician: Kera Maira MDResults: Date of Service: 09/13/23Follow Up: Procedure(s): XR DEXA axial skeleton Accession Number(s): [id number] cc: Kera Maria MD EXAMINATION: BONE DENSITOMETRY CLINICAL INDICATION: Postmenopausal. COMPARISON: This is the patient's baseline examination. TECHNIQUE: Using a Seniorlink DXA System (software version: 13.1) manufactured by [employer], dual-energy x-ray absorptiometry was performed of the [...] in OV> 09/13/23 1740 DD/ 0920 TD/TT: Apartment Property Manager: DOROTHEA Kera Maria MD IMG DXA PROCEDURES Final Result documented in this encounter Visit Diagnoses Diagnosis Closed fracture of single pubic ramus of pelvis, right, initial encounter (CMS/HCC) (HCC)- Primary Postmenopause Asymptomatic postmenopausal status (age-related) (natural) Osteoporosis screening declined documented in this encounter Care Teams Pipeline Operator Relationship Specialty Start Date End Date Kera Maria MD [address] [place] [address] PCP - General Family Medicine 07/22/18 Lev Smith PharmD [address] [place] [address] Pharmacist Internal Medicine 11/12/24 documented as of this encounter
--- OUTSIDE RECORDS SUMMARY | 2025-04-27 11:14 | XMS_ITS | Encounter Summary ---
Author Organization [employer] Address [address] [facility] 7t [place] [address] Care Team Providers Care Commercial Real Estate Attorney Name Role Phone Kera Maria MD Primary Care Provider [phone] Lev Smith PharmD Unavailable [phone] Reason for Visit * Reason Comments Med Refill Encounter Details Date Type Department Care Team ([facility] st Contact Info) Description 04/17/2024 Refill [facility] [address] [place], [place] [phone] Kera Maria MD [address] [place], [place] [phone] Social History Tobacco Use Types Packs/Day Years [...] Description 04/29/2025 10:30 AM EDT Medication Management [facility] [address] [place] [phone] Lev Smith, Steven [address] [place] [address] 06/08/2025 11:30 AM EST Office Visit [facility] [address] [place] [phone] Kera Maria MD [address] [place] [address] documented as of this encounter Visit Diagnoses Not on filedocumented in this encounter Care Teams Commercial Real Estate Attorney Relationship Specialty Start Date End Date Kera Maria MD [address] [place] [address] PCP - General Family Medicine 07/22/18 Lev Smith, PharmD [address] [place] [address] Pharmacist Internal Medicine 11/12/24 documented as of this encounter
--- OUTSIDE RECORDS SUMMARY | 2025-04-27 11:14 | XMS_ITS | Encounter Summary ---
Author Organization [employer] Address [address] [facility] 7t [place] [address] Care Team Providers Care Electric Motor Mechanic Name Role Phone Kera Maria MD Primary Care Provider [phone] Lev Smith PharmD Unavailable [phone] Reason for Referral * Consultation (Urgent) - Pending Review Specialty Diagnoses / Procedures Referred By Contac t Referred To Contact Pharmacy Diagnoses Type 2 diabetes mellitus with hyperglycemia, with long-term current use of insulin (HCC) Essential hypertension Kera Maria MD [address] [place] [address] Phone: tel: fax: Referral ID Status Reason Start Date Expiration Date Visits Requested Visits Authorized [id number] Pending Review Consult and Treat 10/19/2024 10/19/2025 6 6 Encounter Details Date Type Department Care Team (Late st Contact Info) Description 10/19/2024 Orders Only [facility] [address] [place] [address] [phone] Kera Maria MD [address] [place] [address] [phone] Type 2 diabetes mellitus with hyperglycemia, with [...] Description 04/29/2025 10:30 AM EDT Medication Management [facility] [address] [place] [address] Lev Smith, HermilaD [address] [place] [address] 06/08/2025 11:30 AM EST Office Visit [facility] [address] [place] [address] Kera Maria MD [address] [place] [address] Scheduled Referrals Name Type Priority Associated Diagnoses Orde r Schedule Referral to Pharmacy CDTM Outpatient Referral Urgent Type 2 diabetes mellitus with hyperglycemia, with long-term current use of insulin ([facility]) Essential hypertension Ordered: 10/19/2024 documented as of this encounter Visit Diagnoses Diagnosis Type 2 diabetes mellitus with hyperglycemia, with long-term current use of insulin (HCC)- Primary Essential hypertension Unspecified essential hypertension documented in this encounter Care Teams Electric Motor Mechanic Relationship Specialty Start Date End Date Kera Maria MD [address] [place] [address] PCP - General Family Medicine 07/22/18 Lev Smith, Steven [address] [place] [address] Pharmacist Internal Medicine 11/12/24 documented as of this encounter
--- OUTSIDE RECORDS SUMMARY | 2025-04-27 11:14 | XMS_ITS | Encounter Summary ---
Author Organization [employer] Address 75 [facility] 7t [place] [address] Care Team Providers Care Glost Kiln Placer Name Role Phone Kera Maria MD Primary Care Provider [phone] Lev Smith PharmD Unavailable [phone] Encounter Details Date Type Department Care Team (Late st Contact Info) Description 08/09/2022 Abstract [facility] [address] [place] [address] [phone] Kera Maria MD [address] [place] [address] [phone] Social History Tobacco Use Types Packs/Day Years [...] Description 04/29/2025 10:30 AM EDT Medication Management [facility] [address] [place] [address] [phone] Lev Smith, PharmD [address] [place] [address] 06/08/2025 11:30 AM EST Office Visit [facility] [address] [place] [address] [phone] Kera Maria MD [address] [place] [address] documented as of this encounter Procedures Procedure Name Priority Date/Time Associated Diagnosis Comments MAMMOGRAPHY Routine 08/06/2022 documented in this encounter Results * Mammography (08/06/2022) Mammogram perform Anatomical Region Laterality Modality Other Historical Provider MD HEALTH MAINTENANCE Final Result documented in this encounter Visit Diagnoses Not on filedocumented in this encounter Care Teams Glost Kiln Placer Relationship Specialty Start Date End Date Kera Maria MD [address] [place] [address] PCP - General Family Medicine 07/22/18 Lev Smith, PharmD [address] [place] [address] Pharmacist Internal Medicine 11/12/24 documented as of this encounter
--- OUTSIDE RECORDS SUMMARY | 2025-04-27 11:14 | XMS_ITS | Encounter Summary ---
Author Organization [employer] Address [address] [facility] [address] 7t [place] [address] Care Team Providers Care Land Degradation Analyst Name Role Phone Kera Maria MD Primary Care Provider [phone] Lev Smith PharmD Unavailable [phone] Encounter Details Date Type Department Care Team (Late st Contact Info) Description 01/11/2025 Orders Only [facility] [address] [place], [place] [phone] ProviderChey MD Social History Tobacco Use Types [...] Description 04/29/2025 10:30 AM EDT Medication Management [facility]INE [address] [place] [phone] Lev Smith, PharmD [address] [place] [address] 06/08/2025 11:30 AM EST Office Visit [facility]INE [address] [place] [phone] Kera Maria MD [address] [place] [address] documented as of this encounter Procedures Procedure Name Priority Date/Time Associated Diagnosis Comments DIABETES EYE EXAM Routine 01/06/2025 9:58 AM EDT documented in this encounter Results * Diabetes Eye Exam (01/06/2025 9:58 AM EDT) Historical Provider HEALTH MAINTENANCE Final Result documented in this encounter Visit Diagnoses Not on filedocumented in this encounter Care Teams Land Degradation Analyst Relationship Specialty Start Date End Date Kera Maria MD [address] [place] [address] PCP - General Family Medicine 07/22/18 Lev Smith, PharmD [address] [place] [address] [phone] Pharmacist Internal Medicine 11/12/24 documented as of this encounter
--- OUTSIDE RECORDS SUMMARY | 2025-04-27 11:14 | XMS_ITS | Encounter Summary ---
Author Organization [employer] Address [address] [facility] 7t [place] [address] Care Team Providers Care Package Sealer Name Role Phone Kera Maria MD Primary Care Provider [phone] Lev Smith PharmD Unavailable [phone] Reason for Visit * Reason Onset Date Comments Appointment Request 05/10/2023 Encounter Details Date Type Department Care Team (Late st Contact Info) Description 05/10/2023 Telephone [facility] [address] [place] [address] Kera Maria MD [address] [place] [address] Appointment Request Social History Tobacco Use Types [...] appt with PCP, any question contact pt [phone]. documented in this encounter Plan of Treatment Upcoming Encounters Date Type Department Care Team (Late st Contact Info) Description 04/29/2025 10:30 AM EDT Medication Management [facility] [address] [place] [phone] Lev Smith, Steven [address] [place] [address] 06/08/2025 11:30 AM EST Office Visit [address] [address] Kera Maria MD [address] [place] [address] documented as of this encounter Visit Diagnoses Not on filedocumented in this encounter Care Teams Package Sealer Relationship Specialty Start Date End Date Kera Maria MD [address] [place] [address] PCP - General Family Medicine 07/22/18 Lev Smith, PharmD [address] [place] [address] Pharmacist Internal Medicine 11/12/24 documented as of this encounter
--- OUTSIDE RECORDS SUMMARY | 2025-04-27 11:14 | XMS_ITS | Encounter Summary ---
Author Organization [email or web address] Address [address] [facility] 7t [place] [address] Care Team Providers Care Acid Bleacher Name Role Phone Kera Maria MD Primary Care Provider [phone] Lev Smith PharmD Unavailable [phone] Encounter Details Date Type Department Care Team (Late st Contact Info) Description 05/22/2023 Orders Only [facility] [address] [place], [place] [phone] Juhi Onofre LPN Social History Tobacco Use [...] Description 04/29/2025 10:30 AM EDT Medication Management [facility] [address] [place] [address] [phone] Lev Smith, PharmD [address] [place], [place] [phone] 06/08/2025 11:30 AM EST Office Visit [facility] [address] [place] [address] [phone] Kera Maria MD [address] [place] [address] [phone] documented as of this encounter Visit Diagnoses Not on filedocumented in this encounter Care Teams Acid Bleacher Relationship Specialty Start Date End Date Kera Maria MD [address] [place] [address] PCP - General Family Medicine 07/22/18 Lev Smith, Steven [address] [place] [address] Pharmacist Internal Medicine 11/12/24 documented as of this encounter
--- OUTSIDE RECORDS SUMMARY | 2025-04-27 11:14 | XMS_ITS | Encounter Summary ---
Author Organization [employer] Address [address] [facility] [address] 7t [place] [address] Care Team Providers Care Spout Positioner Name Role Phone Kera Maria MD Primary Care Provider [phone] Lev Smith PharmD Unavailable [phone] Reason for Visit * Reason Comments Med Refill Encounter Details Date Type Department Care Team (Late st Contact Info) Description 07/04/2023 Refill [facility]S [address] [place], [place] [phone] Kera Maria MD [address] [place], [place] [phone] Social History Tobacco Use Types Packs/Day Years [...] Description 04/29/2025 10:30 AM EDT Medication Management [facility] [address] [place] [address] Lev Smith, PharmFrancisco [address] [place] [address] 06/08/2025 11:30 AM EST Office Visit [facility] [address] [place] [address] Kera Maria MD [address] [place] [address] documented as of this encounter Visit Diagnoses Not on filedocumented in this encounter Care Teams Spout Positioner Relationship Specialty Start Date End Date Kera Maria MD [address] [place] [address] PCP - General Family Medicine 07/22/18 Lev Smith, PharmD [address] [place] [address] Pharmacist Internal Medicine 11/12/24 documented as of this encounter
--- OUTSIDE RECORDS SUMMARY | 2025-04-27 11:14 | XMS_ITS | Encounter Summary ---
Author Organization [employer] Address [address] [facility] [address] 7t [place] [address] Care Team Providers Care Electrolytic De Scaler Name Role Phone Kera Maria MD Primary Care Provider [phone] Lev Smith PharmD Unavailable [phone] Reason for Visit * Reason Onset Date Comments Results 06/26/2023 Encounter Details Date Type Department Care Team ([facility] st Contact Info) Description 06/26/2023 Telephone [facility] [address] [place], [place] [phone] Kera Maria MD [address] [place], [place] [phone] Results Social History Tobacco Use Types Packs/Day [...] xray to knee. Please contact pt at [phone] (upholstery sewer needed) documented in this encounter Plan of Treatment Upcoming Encounters Date Type Department Care Team (Late st Contact Info) Description 04/29/2025 10:30 AM EDT Medication Management [facility] [address] [place] [phone] Lev Smith, PharmD [address] [place] [address] 06/08/2025 11:30 AM EST Office Visit [facility] [address] [place] [address] Kera Maria MD [address] [place] [address] documented as of this encounter Visit Diagnoses Not on filedocumented in this encounter Care Teams Electrolytic De Scaler Relationship Specialty Start Date End Date Kera Maria MD [address] [place] [address] PCP - General Family Medicine 07/22/18 Lev Smith, PharmD [address] [place] [address] Pharmacist Internal Medicine 11/12/24 documented as of this encounter
--- OUTSIDE RECORDS SUMMARY | 2025-04-27 11:14 | XMS_ITS | Clinical Summary ---
Demographics Address [address] [facility] [facility] [place] [address] Mobile Phone Home Phone Preferred Language es Marital Status Unknown Christianity Affiliation Unknown Race Unknown Ethnic Group Unknown Author Organization [facility] Address [address] [place] [address] Phone Care Team Providers Care Peoplesoft Hr Developer Name Role Phone Kera Maria MD Primary Care Provider [phone] Allergies No known active allergies Medications aspirin [...] 05/27/2017, 05/21/2016, 04/19/2013, Additional history exists Insurance [employer] ([id number]) [employer] ([id number]) Care Teams Peoplesoft Hr Developer Relationship Specialty Start Date End Date Kera Maria MD PCP - General 08/01/20
--- OUTSIDE RECORDS SUMMARY | 2025-04-27 11:14 | XMS_ITS | Encounter Summary ---
Author Organization [employer] Address [address] [facility] [address] [place] [address] Care Team Providers Care Lens Silverer Name Role Phone Kera Maria MD Primary Care Provider [phone] Lev Smith PharmD Unavailable [phone] Encounter Details Date Type Department Care Team (Late st Contact Info) Description 05/01/2023 Orders Only [facility] PEDS [address] [place] [address] Teresa Sotomayor MD [address] [place] [address] Social History Tobacco Use Types Packs/Day Years [...] Description 04/29/2025 10:30 AM EDT Medication Management [facility] [address] [place] [id number] Lev Smith, PharmD [address] [place] [address] 06/08/2025 11:30 AM EST Office Visit [facility] [address] [place] [phone] Kera Maria MD [address] [place] [address] documented as of this encounter Procedures Procedure [...] PM EDT Narrative 05/13/2023 7:18 PM EDT [address] [address] [address] Scan Report Signed Patient: Sofía Penny MR#: [id number] : 1950 Acct:[id number] Age/Sex: 72 / F ADM Date: 05/13/23 Loc: HO.ED Attending Dr: Ordering Physician: Tammi Andrew Date of Service: 05/13/23 Procedure(s): CT cervical spine wo IV con Accession Number(s): [id number] cc: Tammi Andrew; Kera Maria MD EXAMINATION: [...] MD in OV> 05/13/231914 DD/ 06 TD/TT: Qual Research Manager: ELMO Procedure Note Donotuseinterpreter, Image - 05/13/[address] [place] [address] [address] Scan Report Signed Patient: Kaylee Penny#: [id number] : 1950cct:[id number] Age/Sex: 72 / FADM Date: 05/13/23 Loc: HO.ED Attending Dr: Ordering Physician: Tammi Andrew Date of Service: 05/13/23 Procedure(s): CT cervical spine wo IV con Accession Number(s): [id number] cc: Tammi Andrew; Kera Maria MD EXAMINATION: [...] MD in OV> 05/13/231914 DD/ 06 TD/TT: Qual Research Manager: ELMO [facility] External Provider IMG MRI PROCEDURES Edited Result - Final * MR Pelvis w/o Contrast (05/13/2023 6:07 PM EDT) Anatomical Region Laterality Modality Body, Pelvis Magnetic Resonan ce 05/13/2023 6:07 PM EDT Narrative 05/13/2023 7:01 PM EDT [place] [address] [address] Scan Report Signed Patient: Sofía Penny MR#: [id number] : 1950 Acct:[id number] Age/Sex: 72 / F ADM Date: 05/13/23 Loc: HO.ED Attending Dr: Ordering Physician: Tammi Andrew Date of Service: 05/13/23 Procedure(s): CT pelvis wo IV con Accession Number(s): [id number] cc: Tammi Andrew; Kera Maria MD EXAMINATION: [...] signed by Reid Moreno MD in OV> 05/13/231857 DD/ 06 TD/TT: Qual Research Manager: SS Procedure Note Donotuseinterpreter, Image - 05/13/[address] [place] [address] [address] Scan Report Signed Patient: Kaylee Penny#: [id number] : 1950cct:[id number] Age/Sex: 72 / FADM Date: 05/13/23 Loc: HO.ED Attending Dr: Ordering Physician: Tammi Andrew Date of Service: 05/13/23 Procedure(s): CT pelvis wo IV con Accession Number(s): [id number] cc: Tammi Andrew; Kera Maria MD EXAMINATION: [...] in OV> 05/13/23 1858 DD/ 1807 TD/TT: Qual Research Manager: SS [facility] External Provider IMG MRI PROCEDURES Edited Result - Final * CT Head w/o Contrast (05/13/2023 6:07 PM EDT) Anatomical Region Laterality Modality Head, Neck Computed Tomogra phy 05/13/2023 6:07 PM EDT Narrative 05/13/2023 6:59 PM EDT [place] [address] CT Scan Report Signed Patient: Sofía Penny MR#: [id number] : 1950 Acct:[id number] Age/Sex: 72 / F ADM Date: 05/13/23 Loc: HO.ED Attending Dr: Ordering Physician: Tammi Andrew Date of Service: 05/13/23 Procedure(s): CT head/brain wo IV con Accession Number(s): [id number] cc: Tammi Andrew; Kera Maria MD EXAMINATION: [...] Noonan MD in OV> 05/13/23 1856 DD/ 180 TD/TT: Qual Research Manager: ELMO Procedure Note Donotuseinterpreter, Image - 05/13/[address] [place] [address] [address] Scan Report Signed Patient: Kaylee Penny#: [id number] : 1950cct:[id number] Age/Sex: 72 / FADM Date: 05/13/23 Loc: HO.ED Attending Dr: Ordering Physician: Tammi Andrew Date of Service: 05/13/23 Procedure(s): CT head/brain wo IV con Accession Number(s): [id number] cc: Tammi Andrew; Kera Maria MD EXAMINATION: [...] signed by Halley Noonan MD in OV> 05/13/231855 DD/ 06 TD/TT: Qual Research Manager: ELMO [facility] External Provider IMG CT PROCEDURES Edited Result - Final * XR Hip right with Pelvis 1 view (05/13/2023 3:58 PM EDT) Anatomical Region Laterality Modality Lower Extremities, Hip Bilateral Radiograp hic Imaging 05/13/2023 3:58 PM EDT Narrative 05/13/2023 5:03 PM EDT [place] [address] XRay Report Signed Patient: Sofía Penny MR#: [id number] : 1950 Acct:[id number] Age/Sex: 72 / F ADM Date: 05/13/23 Loc: HO.ED Attending Dr: Ordering Physician: Tammi Andrew Date of Service: 05/13/23 Procedure(s): XR hip RT w PEL1V Accession Number(s): [id number] cc: Tammi Andrew; Kera Maria MD EXAMINATION: [...] by Oscar Oseguera MD in OV> 05/13/23 9578 DD/ 1558 TD/TT: Qual Research Manager: Procedure Note Donotuseinterpreter, Image - 05/13/[address] [address] XRay Report Signed Patient: Kaylee Penny#: [id number] : 1950cct:[id number] Age/Sex: 72 / FADM Date: 05/13/23 Loc: HO.ED Attending Dr: Ordering Physician: Tammi Andrew Date of Service: 05/13/23 Procedure(s): XR hip RT w PEL1V Accession Number(s): [id number] cc: Tammi Andrew; Kera Maria MD EXAMINATION: [...] in OV> 05/13/23 1659 DD/ 1558 TD/TT: Qual Research Manager: [facility] External Provider IMG XR PROCEDURES Final Result documented in this encounter Visit Diagnoses Not on filedocumented in this encounter Care Teams Lens Silverer Relationship Specialty Start Date End Date Kera Maria MD [address] [place] [address] PCP - General Family Medicine 07/22/18 Lev Smith, HermilaD [address] [place] [address] Pharmacist Internal Medicine 11/12/24 documented as of this encounter
== END 2025-04-27 09:48 | disposition home or self-care (01) ==
LOC: HO.US 09:47
PROVIDERS: PCP Family Medicine; Visit Provider Nurse Practitioner
DX: K75.81 Nonalcoholic steatohepatitis (NASH) (principal)
CPT/HCPCS: 76700; 76981

== ENCOUNTER → 2025-04-27 09:49 | Outpatient (BNV) | payer OTHER, SELFPAY | PROVIDERS: PCP Family Medicine; Visit Provider Radiology Diagnostic Radiology | DX: K75.81 Nonalcoholic steatohepatitis (NASH) (principal) | CPT/HCPCS: 76700 ==

== ENCOUNTER 2025-06-09 09:30 | Outpatient (REF) | payer OTHER, SELFPAY | END 2025-06-09 09:31 | disposition home or self-care (01) | LOC: HO.LAB 09:30 | PROVIDERS: PCP Family Medicine; Visit Provider Nurse Practitioner Family | DX: Z13.89 Encounter for screening for other disorder (principal); N39.0 Urinary tract infection, site not specified | CPT/HCPCS: 51798; 81003; 99212 ==

== ENCOUNTER 2025-06-09 09:30 | Outpatient (AMB) | payer OTHER, SELFPAY ==
--- OUTSIDE RECORDS SUMMARY | 2025-06-08 11:30 | XMS_ITS | Encounter Summary ---
Author Organization [employer] Address [address] [place] [address] Care Team Providers Care Business Continuity Specialist Name Role Phone Kera Maria MD Primary Care Provider [phone] Lev Smith PharmD Unavailable [phone] Encounter Details Date Type Department Care Team ([facility] st Contact Info) Description 06/08/2025 11:30 AM EST Office Visit [facility] MED[facility] [address] [place], [place] [phone] Kera Maria MD [address] [place], [place] [phone] Essential hypertension (Primary Dx); Type 2 diabetes mellitus with hyperglycemia, with long-term current use of insulin (HCC); Encounter for immunization Social History Tobacco Use Types Packs/Day Years Used Date Smoking Tobacco: Never Passive Smoke Exposure: Never Smokeless Tobacco: Never Depression Answer Date Recorded Patient Health Questionnaire-9 [...] Sign Reading Time Taken Comments Blood Pressure 122/60 06/08/2025 12:23 PM EST Pulse 76 06/08/2025 11:41 AM EST Temperature 35.3 C (95.5 F) 06/08/2025 11:41 AM EST Respiratory Rate 21 06/08/2025 11:41 AM EST Oxygen Saturation 100% 06/08/2025 11:41 AM EST Inhaled Oxygen Concentration - - Weight 76.3 kg (168 lb 3.2 oz) 06/08/2025 11:41 AM EST Height 162.6 cm (5' 4 ) 06/08/2025 11:41 AM EST Body Mass Index 28.87 06/08/2025 11:41 AM EST documented in this encounter Plan of Treatment Upcoming Encounters Date Type Department Care Team (Late st Contact Info) Description 08/06/2025 10:30 AM EST Medication Management [facility] [address] [place] [address] Lev Smith, PharmD [address] [place] [address] documented as of this encounter Goals Goal Patient Goal Type Associated Problems Recent Progress Patient-Stated? Author Help patients manage their type 2 diabetes Care Plan Help patients manage their type 2 diabetes Joanne Hernandez MA Weekly blood pressure task Care Plan Weekly blood pressure task No Joanne Jimenez MA Help patients manage their type 2 diabetes Care Plan Help patients manage their type 2 diabetes No Joanne Jimenez MA Patient has chronic kidney disease Care Plan Patient has chronic kidney disease No Joanne Jimenez MA Weekly blood pressure task Care Plan Weekly blood pressure task No Joanne Jimenez MA Patient has chronic kidney disease Care Plan Patient has chronic kidney disease No Joanne Jimenez MA Weekly blood pressure task Care Plan Weekly blood pressure task No Joanne Jimenez MA Weekly blood pressure task Care Plan Weekly blood pressure task No Joanne Jimenez MA Patient has chronic kidney disease Care Plan Patient has chronic kidney disease No Joanne Jimenez MA Patient has chronic kidney disease Care Plan Patient has chronic kidney disease No Joanne Jimenez MA Weekly blood pressure task Care Plan Weekly blood pressure task No Elena Arzola PharmD Weekly blood pressure task Care Plan Weekly blood pressure task No Elena Arzola PharmD Patient has chronic kidney disease Care Plan Patient has chronic kidney disease No Elena Arzola PharmD Patient has chronic kidney disease Care Plan Patient has chronic kidney disease No Elena Arzola PharmD documented as of this encounter Procedures Procedure Name Priority Date/Time Associated Diagnosis Comments POCT GLYCOSYLATED HEMOGLOBIN (HGB A1C) Routine 06/08/2025 11:42 AM EST Type 2 diabetes mellitus with hyperglycemia, with long-term current use of insulin (HCC) POCT GLUCOSE Routine 06/08/2025 11:42 AM EST Type 2 diabetes mellitus with hyperglycemia, with long-term current use of insulin (HCC) documented in this encounter Results * (ABNORMAL) POCT glycosylated hemoglobin (Hgb A1c) (06/08/2025 11:42 AM EST) Hemoglobin A1C 7.3(A) 4.0 - 5.7 % QC Media Lot # [id number] Lot# Expiration Date ,325 Blood Capillary blood specimen / Unknown 06/08/2025 11:42 AM EST Kera Maria MD POINT OF CARE TEST ENTER/EDIT OR DERABLES Final Result * (ABNORMAL) POCT glucose manually resulted (06/08/2025 11:42 AM EST) Glucose Blood, POC 224(A) 60 - 200 mg/dL QC Media Lot # [id number] Lot# Expiration Date ,74,799 Blood Capillary blood specimen / Unknown 06/08/2025 11:42 AM EST Result [facility] Kera Maria MD POINT OF CARE TEST ENTER/EDIT OR DERABLES Final Result documented in this encounter Visit Diagnoses Diagnosis Essential hypertension- Primary Unspecified essential hypertension Type 2 diabetes mellitus with hyperglycemia, with long-term current use of insulin ([facility]) Encounter for immunization documented in this encounter Additional Health Concerns Active Problems Noted Date Diagnosed Date Help patients manage their type 2 diabetes 06/07 Weekly blood pressure task 06/07/2025 Help patients manage their type 2 diabetes 06/07 Patient has chronic kidney disease 06/07/2025 Weekly blood pressure task 06/07/2025 Patient has chronic kidney disease 06/07/2025 Weekly blood pressure task 06/07/2025 Weekly blood pressure task 06/07/2025 Patient has chronic kidney disease 06/07/2025 Patient has chronic kidney disease 06/07/2025 Weekly blood pressure task 06/08/2025 Weekly blood pressure task 06/08/2025 Patient has chronic kidney disease 06/08/2025 Patient has chronic kidney disease 06/08/2025 Assessment Noted Time PHQ-9 Depression Total Score: 0 03/11/20 25 10:50 AM EDT documented as of this encounter Care Teams Business Continuity Specialist Relationship Specialty Start Date End Date Kera Maria MD [address] [place] [address] PCP - General Family Medicine 07/22/18 Lev Smith, PharmD [address] [place] [address] Pharmacist Internal Medicine 11/12/24 documented as of this encounter
--- NOTE | 2025-06-09 09:33 | MHC.OFFVIS ---
Intake Visit Reasons: 6m/PVR Intake Note: Patient is present for 6M/PVR Urology Medication:NITROFURANTION MACOCRYSTAL,SOLIFENACIN Antibiotic Allergy:NONE Blood Thinner:ASPIRIN Last PVR:35ML'S Todays PVR:74ML'S Packing Floor Worker Required: Yes Packing Floor Worker Services: Packing Floor Worker Present Packing Floor Worker Name: [id number] Allergies adhesive tape (ADHESIVE TAPE) Allergy (Intermediate, Verified 06/09/25 10:10) RASH-LOCALIZED No Known Drug Allergies Allergy (Unknown, Verified 06/09/25 10:10) none latex Allergy (Verified 06/09/25 10:10) Rash Medication List - Last Reconciled 06/09/25 by HARIS Carrion alcohol swabs (Alcohol Prep Pads) 1 pad topical TID alendronate 70 mg PO QWEEK amlodipine 10 mg PO QAM aspirin 81 mg PO QAM azelastine 2 sprays intranasal BID 30 days blood sugar diagnostic As directed cholecalciferol (vitamin D3) 25 mcg PO QAM dulaglutide (Trulicity) 1.5 mg subcut QWEEK ezetimibe 10 mg PO BEDTIME famotidine (Pepcid) 20 mg PO BEDTIME fluticasone furoate-vilanterol 200-25 mcg/dose (Breo Ellipta) 1 inh inhalation DAILY 30 days fluticasone propionate 50 mcg/actuation 2 sprays intranasal DAILY 30 days furosemide 40 mg PO QAM insulin glargine (Lantus U-100 Insulin) 14 units subcut QPM lancets As directed loratadine (Claritin) 10 mg PO DAILY 30 days losartan 50 mg PO DAILY magnesium oxide 400 mg PO BEDTIME 30 days montelukast 10 mg PO BEDTIME 30 days nitrofurantoin macrocrystal 50 mg PO BEDTIME 90 days omeprazole 20 mg PO .qd 30 days pioglitazone 15 mg PO DAILY riboflavin (vitamin B2) (Vitamin B-2) 400 mg (4 x 100 mg) PO QAM rosuvastatin 40 mg PO DAILY simethicone (Gas Relief (simethicone)) 180 mg PO QID solifenacin (Vesicare) 5 mg PO DAILY 90 days trazodone 50 mg PO BEDTIME HPI Comments Details: Sofía is a pleasant 75 year old Northern Irish speaking patient of Dr. Maria. She has a PMH of diabetes, osteoarthritis, migraines, hypercholesteremia, coronary artery disease, obstructive sleep apnea, chronic restrictive lung disease, stress urinary incontinence, and recurrent urinary tract infections. She presents to the office today for follow-up of her lower urinary tract symptoms, recurrent urinary tract infections, and interstitial cystitis. In discussion with the patient today she reports to be doing and feeling well. She denies having had any bothersome urinary issues or concerns since her last office visit here approximately 6 months ago. She reports compliance with low-dose Macrobid as well as VESIcare as prescribed. In office urinalysis results reviewed with the patient today. PVR 74 mL. Previous workup has included a retroperitoneal ultrasound 12/13 that noted bilateral kidneys are normal in size and echotexture. No hydronephrosis or renal calculi noted bilaterally. Urinary bladder is unremarkable. Patient with a previous history of positive urine cultures as noted and trended below: 03/14 Klebsiella pneumoniae and urine culture 06/14 group B. We discussed at length importance of managing diabetes for improvement in urinary symptoms as well as overall health and well-being. She urinary urgency, urinary frequency, nocturia, dysuria, hematuria, changes to urinary stream, fever, and or chills. She otherwise denies any issues or concerns at this time. [facility] Medical History Diabetes Osteoarthritis Migraine Elevated cholesterol CAD (coronary artery disease) BART (obstructive sleep apnea) Chronic restrictive lung disease DILSHAD (stress urinary incontinence, female) Recurrent UTI (urinary tract infection) Surgical History H/O esophagogastroduodenoscopy H/O colonoscopy History of bladder suspension procedure S/P CABG x 3 History of tubal ligation History of hysterectomy Family History Father Alcohol abuse Cirrhosis Mother Cervical cancer Paternal Grandfather Stomach cancer Social History Household Members: Children Alcohol intake: never Patient Tobacco Use Status: Never used Tobacco Advance Directives Date on File: 05/14/23 Current occupational status: retired Current occupation: lt handed Review of Systems Const Reports as per HPI Eyes Reports no additional complaints ENT Reports no additional complaints Card Reports as per [facility] Resp Reports as per [facility] GI Reports no additional complaints Reports as per [facility] Musc Reports as per [facility] Neuro Reports no additional complaints Psych Reports no additional complaints Endo Reports as per [facility] Physical Exam Const General: cooperative, healthy appearing, comfortable, no acute distress, well developed, alert and awake Orientation/consciousness: patient oriented x3 Limitations: language barrier HEENT Head: Yes normal to inspection, Yes normocephalic and Yes atraumatic Ears: hearing grossly normal bilaterally Eyes General: appearance normal, both eyes and all related structures Neck Neck: Yes normal visual inspection and Yes trachea midline Chest Chest palpation & inspection: normal inspection of the chest Resp Effort & Inspection: normal respiratory effort and able to speak in complete sentences Cardio Rate: regular rate GI Inspection: Yes normal to inspection General: Yes no CVA tenderness Back/Spine/Pelvis Back: no CVA tenderness Skin General skin exam: no rashes or lesions noted Neuro General: patient oriented x3 Extrem General: Yes normal to inspection Psych Appearance: grossly normal and well kempt Mental Status: mental status grossly normal Speech and movement: Normal speech and movement present and Clear speech present Affect: normal affect Attitude: cooperative Thought process: Normal thought process present Thought content: Normal thought content present Insight: Fair insight present (Psych) Judgement: Fair judgement present (Psych) Office Procedures Post Void Residual Post Residual Void Post Void Residual (PVR): [id number] Void Residual by ultrasound Assessment & Plan Assessment & Plan (1) Interstitial cystitis: Code(s): N30.10 - Interstitial cystitis (chronic) without hematuria Category: Medical (2) Incontinence: Code(s): R32 - Unspecified urinary incontinence Category: Medical (3) Recurrent UTI (urinary tract infection): Code(s): N39.0 - Urinary tract infection, site not specified Category: Medical Plan In office urinalysis results reviewed with the patient today; as noted above. PVR 74 mL. She currently denies any bothersome urinary issues or concerns. Continue VESIcare and Macrobid as prescribed; refills provided We discussed importance of management and diabetes for improvement lower urinary tract symptoms as well as overall health and well-being. We discussed bladder triggers/irritants. Will continue with surveillance monitoring. Discussed UTI prevention with D mannose supplement, vitamin-C, increasing fluid intake, behavioral therapy with timed voiding, perineal hygiene and postcoital voiding, and management of constipation with stool softeners and increased fiber intake. Follow-up in 6 months with PVR; or sooner with any issues, concerns, and or questions. Patient Instructions: The patient had an opportunity to ask questions regarding the treatment plan. All questions were answered. Physical exam, labs, and imaging were discussed and reviewed in detail. As well as risks, benefits, and discussion of treatment choices. No major barriers to understanding were identified. The patient expressed understanding and agreement with the above treatment plan. The patient was made aware they should contact our office by phone for worsening of their current condition, the appearance of new symptoms, or with any questions or concerns. Compliance is encouraged with any medications and follow up testing that is ordered. It is a privilege to be allowed the opportunity to participate in? your urological care.? Again, if you have any questions or concerns If you have any questions or concerns please do not hesitate to contact me. The office is [phone]. This note is constructed using voice recognition software. While every effort has been made to ensure accuracy zoogler errors may have been included. Yours sincerely, HARIS Carrion Coding Level of Care Code Est Pt Level 3 (69766) Diagnoses Interstitial cystitis N30.10 Incontinence R32 Recurrent UTI (urinary tract infection) N39.0 CPT Codes Post Residual Void - PVR CPT Code: 40429-Pxqg Void Residual by ultrasound ([id number])
--- OUTSIDE RECORDS SUMMARY | 2025-06-09 17:31 | XMS_ITS | Clinical Summary ---
Author Organization [employer] Address [address] [place] [address] Care Team Providers Care Kitchen Aide Name Role Phone Kera Maria MD Primary Care Provider [phone] Lev Smith PharmD Unavailable [phone] Allergies Active Allergy Reactions Criticality Noted Date Comments Latex 06/21/2023 Metformin Diarrhea 12/15/2024 Wound Dressing Adhesive High 09/10/2024 Other Reaction(s): RASH-LOCALIZED Medications Misc. Devices (Pulse Oximeter For Finger) miscIndications: COVID-19 To check your oxygen level every 4 hours. Call the office if O2 Sat drops below 90% 1 each 023 Active magnesium oxide (Mag-Ox) 400 (240 Mg) MG tablet 023 Active nitrofurantoin (Macrodantin) 50 MG capsule TAKE 1 CAPSULE BY MOUTH AT BEDTIME TAKE WITH FOOD 023 Active riboflavin (vitamin B2) 100 mg tablet tablet 023 Active Simethicone Ultra Strength 180 MG capsule 023 Active montelukast (Singulair) 10 MG tablet TAKE 1 TABLET BY MOUTH AT BEDTIME 90 tablet 3 024 Active alendronate (Fosamax) 70 MG tablet Take 1 tablet (70 mg) by mouth every 7 (seven) days. Take in the morning with a full glass of water, on an empty stomach, and do not take anything else by mouth or lie down for the next 30 min. 12 tablet 3 024 Active Continuous Glucose Research Center Director (CLAREDStyle La 2 [place]) deviceIndication s:Type 2 diabetes mellitus with hyperglycemia, with long-term current use of insulin ([facility]) Scan sensor every 8 hours 1 each Active glucose blood (FreeStyle Precision Adeel Test) test strip Use to test blood sugar 3 times daily 100 each 12 025 2025 Active UltiCare Short Pen [place] 31G X 8 MM miscIndications: Type 2 diabetes mellitus with hyperglycemia ([facility]) Use as instructed 100 each Active Aspirin Low Dose 81 MG EC tablet TAKE 1 TABLET BY MOUTH EVERY MORNING 30 tablet 11 Active cholecalciferol (Vitamin D-3) 25 MCG tablet TAKE 1 TABLET BY MOUTH EVERY MORNING 30 tablet Active azelastine (Astelin) 0.1 % nasal spray [...] PAIN WITH FOOD 40 capsule 1 Active pioglitazone (Actos) 15 MG tabletIndication s:Type 2 diabetes mellitus with hyperglycemia, with long-term current use of insulin ([facility]) Take 1 tablet (15 mg) by mouth Once per day. 30 tablet 025 2025 Active Lancet Devices (Lancing Device) miscIndications: Type 2 diabetes mellitus with other specified complication, unspecified whether usp insulin use ([facility]) Use as directed 1 each Active Lancets 33G miscIndications: Type 2 diabetes mellitus with other specified complication, unspecified whether odd ticket clerk insulin use ([facility]) Use to check BG up to 3 times daily as needed for hypoglycemia or sensor failure 100 each 5 Active loratadine (Claritin) 10 MG tablet Active insulin glargine (Lantus SoloStar) 100 UNIT/ML pen INJECT 14 UNITS SUBCUTANEOUSLY EVERY EVENING DIRECTED 15 mL 5 025 Active fluticasone (Flonase) 50 MCG/ACT nasal sprayIndications :Allergic rhinitis, unspecified seasonality, unspecified trigger USE 1 SPRAY IN EACH NOSTRIL ONCE DAILY 16 g 1 025 Active Alcohol Swabs (Alcohol Prep) 70 % padsIndications: Type 2 diabetes mellitus with hyperglycemia (HCC) USE DIRECTED WITH INSULIN 100 each 11 025 Active famotidine (Pepcid) 20 MG tablet Take 20 mg by mouth at bedtime. Active omeprazole (PriLOSEC) [address] capsule Take 20 mg by mouth in the morning. Active Continuous Glucose Sensor (Musisticyle La 2 Plus Sensor) miscIndications: Type 2 diabetes mellitus with hyperglycemia, with long-term current use of insulin ([facility]) 1 Device every 15 days. Apply 1 sensor as directed every 15 days for CGM 2 each 025 Active amLODIPine (Norvasc) 10 MG tablet TAKE 1 TABLET BY MOUTH EVERY MORNING 90 tablet 3 025 Active losartan (Cozaar) 50 MG tablet TAKE 1 TABLET BY MOUTH AT BEDTIME 90 tablet 3 025 Active ezetimibe (Zetia) 10 MG tabletIndication s:Mixed hyperlipidemia TAKE 1 TABLET BY MOUTH AT BEDTIME 90 tablet 3 025 Active Trulicity 1.5 MG/0.5ML solution auto-injectorInd ications:Type 2 diabetes mellitus with hyperglycemia, with long-term current use of insulin ([facility]) INJECT ONE PEN (=1.5MG) SUBCUTANEOUSLY ONCE A WEEK DIRECTED 2 mL 11 025 Active rosuvastatin (Crestor) 40 MG tablet Take 1 tablet (40 mg) by mouth at bedtime. 90 tablet 1 025 Active traZODone (Desyrel) 50 MG tabletIndication s:Depression, unspecified depression type Take 1 tablet (50 mg) by mouth at bedtime. 90 tablet 1 025 Active clotrimazole (Lotrimin) 1 % cream Apply topically 2 times daily. 60 g 2 Active polyethylene glycol, PEG, 3350 (Miralax) 17 g packet Use 17 grams once daily as needed for constipation, dissolved in 4-8 ounces of liquid, 30 packet 2 Active Dulaglutide (Trulicity) 1.5 MG/0.5ML solution auto-injectorInd ications:Type 2 diabetes mellitus with hyperglycemia, with long-term current use of insulin (HCC) Inject 1.5 mg under the skin 1 (one) time per week. 2 mL 11 024 2024 Discontinued amLODIPine (Norvasc) 10 MG tablet TAKE 1 TABLET BY MOUTH EVERY MORNING 90 tablet 3 024 2024 Discontinued ezetimibe (Zetia) 10 MG tabletIndication s:Mixed hyperlipidemia TAKE 1 TABLET BY MOUTH AT BEDTIME 90 tablet 3 024 2024 Discontinued losartan (Cozaar) 50 MG tablet TAKE 1 TABLET BY MOUTH AT BEDTIME 90 tablet 3 024 2024 Discontinued rosuvastatin (Crestor) 40 MG tablet TAKE 1 TABLET BY MOUTH AT BEDTIME 90 tablet 1 025 2024 Discontinued(R eorder (will not trigger notification to Pharmacy)) traZODone (Desyrel) 50 MG tabletIndication s:Depression, unspecified depression type TAKE 1 TABLET BY MOUTH AT BEDTIME 90 tablet 1 025 2024 Discontinued(R eorder (will not trigger notification to Pharmacy)) Active [...] (03/21/2025 7:27 PM EDT): - following with [facility] - last US in November 2021 - FIB 4 index 2.13 - Consider updating US, if it is not done by GI yet Assessment & Plan (09/08/2024 10:24 AM EST): - following with [facility] - last US in November 2021 Assessment & Plan (05/29/2024 3:20 PM EST): - following with [facility] - last US in November 2021 Assessment & Plan (06/20/2023 5:47 AM EST): - following with [facility] - last US in November 2021 Restrictive airway disease 06/20/2023 Assessment & Plan (05/29/2024 3:18 PM EST): - evaluated by staff respiratory therapist - last PFT in December 2022, no obstructive airway disease / RAD - breathing exercise Assessment & Plan (06/20/2023 6:01 AM EST): - evaluated by staff respiratory therapist - last PFT in December 2022, no obstructive airway disease / RAD - breathing exercise Proteinuria 10/28/2020 Chronic interstitial cystitis 11/25/2017 Assessment & Plan (05/29/2024 3:22 PM EST): Seen by [facility] urology provider on 02/08/22 for f/u recurrent UTI and IC. Pt currently on Elmiron and nitrofurantoin per note. Assessment & Plan (06/20/2023 5:26 AM EST): Seen by [facility] urology provider on 02/08/22 for f/u recurrent [...] measures. - patient requests a referral to [facility] cardiology Assessment & Plan (09/08/2024 10:23 AM [...] (03/21/2025 7:28 PM EDT): - Following with [facility], last seen in February 2025 - Prescribed omeprazole 20 mg daily and famotidine 20 mg nightly Mixed stress and urge urinary incontinence 10/1106/12/2023 Assessment & Plan (03/12/2025 12:43 AM EDT): -following with urology Assessment & Plan (09/11/2024 2:28 PM EST): -following with urology Atherosclerosis of [place] co ronary artery of [place] heart without angina pectoris 04/25/2015 06/12/2023 Insomnia 04/25/2015 06/12/2023 Overweight 04/25/2015 06/12/2023 Essential hypertension 04/25/2015 Assessment & Plan (03/12/2025 12:40 AM EDT): -Goal BP < 140/90 per JNC-8 and < 130/80 per ACC/AHA guideline -Co-managed with rope silica machine operator, assembler fitter, and pharmacist -Slightly elevated BP, possibly due [...] < 130/80 per ACC/AHA guideline -Co-managed with rope silica machine operator, assembler fitter, and pharmacist -Slightly elevated BP, possibly due [...] < 130/80 per ACC/AHA guideline -Co-managed with rope silica machine operator and assembler fitter -Slightly elevated BP, possibly due to her [...] < 130/80 per ACC/AHA guideline -Co-managed with rope silica machine operator and assembler fitter -Slightly elevated BP, possibly due to her [...] < 130/80 per ACC/AHA guideline -Co-managed with rope silica machine operator and assembler fitter -Slightly elevated BP, possibly due to her [...] (03/12/2025 12:43 AM EDT): - following with [facility], last seen in May 2023 - last UTI in Feb 2024, breakthrough (on nitrofurantoin prophylaxis). - urine culture in Feb 2024 grew Klebsiella. Treated with TMP/SMX. - relative contraindication to SGLT2i Assessment & Plan (09/11/2024 2:28 PM EST): - following with [facility], last seen in May 2023 - last UTI in Feb 2024, breakthrough (on nitrofurantoin prophylaxis). - urine culture in Feb 2024 grew Klebsiella. Treated with TMP/SMX. - relative contraindication to SGLT2i Assessment & Plan (05/24/2024 6:20 AM EST): - following with [facility], last seen in May 2023 - [...] Plan (06/20/2023 5:25 AM EST): Seen by [facility] urology provider on 02/08/22 for f/u recurrent UTI and IC. Pt currently on Elmiron and nitrofurantoin. -Last UTI DECEMBER 2021. -Cont Elmiron and nitrofurantoin. 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/16/2005 06/12/2023 Resolved Problems Problem Noted Date Diagnosed Date Resolved Date Disorder of vein 06/26/2018 06/12/2023 06/20/2023 Encounters Date Type Department Care Team Description 06/08/2025 11:30 AM EST Office Visit [facility] [address] [place] [phone] Kera Maria MD Essential hypertension (Primary Dx); Type 2 diabetes mellitus with hyperglycemia, with long-term current use of insulin ([facility]); Encounter for immunization 06/08/2025 Travel 06/08/2025 Refill [facility] [address], [place] [phone] Kera Maria MD Depression, unspecified depression type 06/07/2025 Telephone [facility] [address] [place] [address] [phone] Kera Maria MD chart prep 06/04/2025 Refill [facility] [address] [address], [place] [phone] Kera Maria MD Type 2 diabetes mellitus with hyperglycemia, with long-term current use of insulin (HCC) 05/13/2025 Refill [facility] [address] [place] [address] Kera Maria MD Mixed hyperlipidemia 05/07/2025 Travel 04/27/2025 Orders Only [facility] External Provider, [facility] 04/16/2025 11:00 AM EDT Clinical Support [address] [address] Anna Santos RN Memory changes 04/16/2025 Travel 04/16/2025 Refill [facility] [address] [place] [address] Kera Maria MD Type 2 diabetes mellitus with hyperglycemia (CMS/HCC) 04/13/2025 Refill [facility] [address] [place] [address] Kera Maria MD Allergic rhinitis, unspecified seasonality, unspecified trigger 03/11/2025 10:45 AM EDT Office Visit [address] [address] Kera Maria MD Essential hypertension (Primary Dx); Type 2 diabetes mellitus with hyperglycemia, with long-term current use of insulin (CMS/HCC); Metabolic dysfunction-associated steatotic liver disease (MASLD); Gastroesophageal reflux disease, unspecified whether esophagitis present; Tubular adenoma of colon; Mixed stress and urge urinary incontinence; Recurrent urinary tract infection; Ischemic heart disease; Atherosclerosis of [place] coronary artery of [place] heart without angina pectoris; Peripheral venous insufficiency; S/P CABG x 3; Dyslipidemia; BART (obstructive sleep apnea); Neck mass; Throat pain 03/11/2025 Travel 03/10/2025 Telephone [facility] [address] [place] [address] Kera Maria MD chart prep from Last 3 Months Immunizations Immunization Administration [...] Mass Index 28.87 06/08/2025 11:41 AM EST Plan of Treatment Upcoming Encounters Date Type Department Care Team (Late st Contact Info) Description 08/06/2025 10:30 AM EST Medication Management [facility] [address] [place] [address] Lev Smith, PharmD [address] [place] [address] Health Maintenance Due Date Last Done Comments CT Colonography 1950 FIT DNA/Cologuard 1950 FIT 1950 FOBT 1950 Sigmoidoscopy 1950 RSV Patients and Patients Aged 60 years or older (1 - Risk 50-74 years 1-dose series) 2001 COVID-19 Vaccine ( season) 2025 08/23/2021, 10/21/2020, 09/23/2020 Influenza Vaccine (#1) 2025 , 06/20/2023, 04/04/2022, Additional history exists Diabetes: Hemoglobin A1C 09/08/2025 025, 03/11/2025, 12/15/2024, Additional history exists Mammogram 11/28/2025 11/29/2023, 07/22, 08/06/2022, Additional history exists Diabetes: Foot Exam 12/15/2025 12/15/2024, 12/15/2024, 12/15/2024, Additional history exists Diabetes: Urine Protein Screening 12/15/2025 12/15/2024, 06/20/2023, 05/29/2021 Lipid Panel 12/15/2025 12/15/2024, 11/20, 06/20/2023, Additional history exists Depression Screening 03/11/2026 03/11/2025, 03/11/20 25 SDOH Screening 03/11/2026 03/11/2025 Alcohol/Substance Use Screening 06/08/2026 06/08/2025 Tobacco Screening 06/08/2026 06/08/2025 Eye Exam 01/06/2027 01/06/2025, 01/06/2024 Colonoscopy 09/10/2029 [...] on patient's age to complete this topic Goals Goal Patient Goal Type Associated Problems Recent Progress Patient-Stated? Author Help patients manage their type 2 diabetes Care Plan Help patients manage their type 2 diabetes No Joanne Jimenez MA Weekly blood pressure [...] chronic kidney disease No Elena Arzola PharmD Procedures Procedure Name Priority Date/Time Associated Diagnosis Comments POCT GLYCOSYLATED HEMOGLOBIN (HGB A1C) Routine 06/08/2025 11:42 AM EST Type 2 diabetes mellitus with hyperglycemia, with long-term current use of insulin (HCC) POCT GLUCOSE Routine 06/08/2025 11:42 AM EST Type 2 diabetes mellitus with hyperglycemia, with long-term current use of insulin (HCC) US ABDOMEN COMPLETE WITH ELASTOGRAPHY Routine 04/27/2025 10:02 AM EDT POCT GLYCATED HEMOGLOBIN, TOTAL Routine 03/11/2025 10:53 AM EDT Type 2 diabetes mellitus with hyperglycemia, with long-term current use of insulin ([facility]) POCT GLUCOSE Routine 03/11/2025 10:53 AM EDT Type 2 diabetes mellitus with hyperglycemia, with long-term current use of insulin ([facility]) DIABETES EYE EXAM Routine 01/06/2025 9:58 AM [...] Media Lot # [id number] Lot# Expiration Date ,027 Blood Capillary blood specimen / Unknown 06/08/2025 11:42 AM EST us Kera Maria MD POINT OF CARE TEST ENTER/EDIT OR DERABLES Final Result * (ABNORMAL) POCT glucose manually resulted (06/08/2025 11:42 AM EST) Only the most recent of2 resultswithin the time period is included. Glucose Blood, POC 224(A) 60 - 200 mg/dL QC Media Lot # [id number] Lot# Expiration Date , Blood Capillary blood specimen / Unknown 06/08/2025 11:42 AM EST us Kera Maria MD POINT OF CARE TEST ENTER/EDIT OR DERABLES Final Result * US Abdomen Comp w elastography (04/27/2025 10:02 AM EDT) Anatomical Region Laterality Modality Abdomen Ultrasound 04/27/2025 10:0 2 AM EDT Narrative 04/27/2025 12:17 PM EDT [place] [id number] Ultrasound Report Signed Patient: Sofía Penny MR#: [id number] : 1950 Acct:[id number] Age/Sex: 74 / F ADM Date: 04/27/25 Loc: HO.US Attending Dr: Mallika CASILLAS Ordering Physician: Mallika Eng Date of Service: 04/27/25 Procedure(s): US abdomen comp w elastography Accession Number(s): [id number] cc: Mallika Eng; Kera Maria MD Reason for Exam: K75.81 - Nonalcoholic steatohepatitis ([facility]) EXAMINATION: US COMPLETE ABDOMEN WITH LIVER ELASTOGRAPHY CLINICAL INFORMATION: [facility] COMPARISON: Abdominal ultrasound November 2021 TECHNIQUE: Real-time imaging of the abdominal viscera. Noninvasive ultrasound liver fibrosis assessment is performed using Melissa ElastPQ point quantification shear wave elastography (pSWE) with a C5-2 MHz transducer. Multiple elastography samples are obtained. FINDINGS: PANCREAS: The visualized pancreatic head and body are normal in appearance. The remainder of the pancreas is obscured from visualization by the overlying bowel gas. ABDOMINAL AORTA: There is evidence of atherosclerotic disease. There is mild focal dilatation of the distal abdominal aorta measuring 2.2 cm. No aneurysm. INFERIOR VENA CAVA: Visualized portions are normal. LIVER: The liver demonstrates normal size, contour and echogenicity. No focal lesion or intrahepatic biliary duct dilatation. The right lobe measures 16.3 cm in length. The left lobe measures 8.8 cm in length. Portal flow is normal/hepatopedal Shear wave liver elastography median stiffness is 1.62 m/s (reference: normal median stiffness is 1.3 m/s or less). IQR/median stiffness to assess sampling precision is 0.06 (reference: good quality data set is IQR/median stiffness of 0.15 or less). GALLBLADDER: The gallbladder is physiologically distended without evidence of stones, sludge, polyps, wall thickening or pericholecystic fluid. COMMON BILE DUCT: Normal in caliber measuring 0.5 cm in diameter. RIGHT KIDNEY: No hydronephrosis. No renal calculi or focal parenchymal lesions. The kidney measures 10 cm in maximum dimension. LEFT KIDNEY: No hydronephrosis. No renal calculi or focal parenchymal lesions. The kidney measures 9.8 cm in maximum dimension. SPLEEN: Unremarkable. The spleen measures 9 cm in maximum dimension. FREE FLUID: None seen. There is a small periportal/peripancreatic lymph node measuring 1.1 x 0.5 x 0.7 cm with normal ultrasound morphology. US/US abdomen comp w elastography IMPRESSION: 1. Impression: Normal appearing liver. 2. Liver elastography: Liver Stiffness less than 1.7 m/s: In the absence of other known clinical signs, rules out compensated advanced chronic liver disease. REFERENCE: Society of Radiologists in Ultrasound Liver Stiffness Thresholds (2019): LIVER STIFFNESS THRESHOLDS: *Liver Stiffness equal or less than 1.3 m/s: High probability of being normal. *Liver Stiffness less than 1.7 m/s: In the absence of other known clinical signs, rules out compensated advanced chronic liver disease. *Liver Stiffness 1.7-2.1 m/s: Suggestive of compensated advanced chronic liver disease but need further test for confirmation. *Liver Stiffness over 2.1 m/s: Rules in compensated advanced chronic liver disease. *Liver Stiffness over 2.4 m/s: Suggestive of clinically significant portal hypertension. QUALITY OF DATA SET: *IQR/Median value equal or less than 0.15 implies a quality data set. *IQR/Median value over 0.15 implies a poor quality data set. SIGNIFICANT CHANGE FROM PRIOR EXAM: Significant change if liver stiffness measurement is 10% or greater from prior exam. OTHER CONSIDERATIONS: The stage of liver fibrosis may be overestimated in the setting of acute hepatitis, liver inflammation, elevated liver function tests, hepatic vascular congestion, obstructive cholestasis, non-fasting state, and infiltrative diseases such as amyloidosis and lymphoma. In some patients with NAFLD, the liver stiffness thresholds for compensated advanced chronic liver disease may be lower. In causes other than viral hepatitis and NAFLD, liver stiffness thresholds are not well established. Electronically signed by: Halley Noonan MD 04/27/2025 12:14 PM EDT Dictated By: Halley Noonan MD Signed By: <Electronically signed by Halley Noonan MD in OV> 04/27/25 1214 DD/ 1002 TD/TT: 04/27/25 1033 Communications Tech: ELMO Procedure Note Donotuseinterpreter, Image - 04/27/[address] [address] Ultrasound Report Signed Patient: Kaylee Penny#: [id number] : 1950cct:[id number] Age/Sex: 74 / FADM Date: 04/27/25 Loc: HO.US Attending Dr: Mallika CASILLAS Ordering Physician: Mallika Eng Date of Service: 04/27/25 Procedure(s): US abdomen comp w elastography Accession Number(s): [id number] cc: Mallika Eng; Kera Maria MD Reason for Exam: K75.81 - Nonalcoholic steatohepatitis ([facility]) EXAMINATION: US COMPLETE ABDOMEN WITH LIVER ELASTOGRAPHY CLINICAL INFORMATION: [facility] COMPARISON: Abdominal ultrasound November 2021 TECHNIQUE: Real-time imaging of the abdominal viscera. Noninvasive ultrasound liver fibrosis assessment is performed using Melissa ElastPQ point quantification shear wave elastography (pSWE) with a C5-2 MHz transducer. Multiple elastography samples are obtained. FINDINGS: PANCREAS: The visualized pancreatic head and body are normal in appearance. The remainder of the pancreas is obscured from visualization by the overlying bowel gas. ABDOMINAL AORTA: There is evidence of atherosclerotic disease. There is mild focal dilatation of the distal abdominal aorta measuring 2.2 cm. No aneurysm. INFERIOR VENA CAVA: Visualized portions are normal. LIVER: The liver demonstrates normal size, contour and echogenicity. No focal lesion or intrahepatic biliary duct dilatation. The right lobe measures 16.3 cm in length. The left lobe measures 8.8 cm in length. Portal flow is normal/hepatopedal Shear wave liver elastography median stiffness is 1.62 m/s (reference: normal median stiffness is 1.3 m/s or less). IQR/median stiffness to assess sampling precision is 0.06 (reference: good quality data set is IQR/median stiffness of 0.15 or less). GALLBLADDER: The gallbladder is physiologically distended without evidence of stones, sludge, polyps, wall thickening or pericholecystic fluid. COMMON BILE DUCT: Normal in caliber measuring 0.5 cm in diameter. RIGHT KIDNEY: No hydronephrosis. No renal calculi or focal parenchymal lesions. The kidney measures 10 cm in maximum dimension. LEFT KIDNEY: No hydronephrosis. No renal calculi or focal parenchymal lesions. The kidney measures 9.8 cm in maximum dimension. SPLEEN: Unremarkable. The spleen measures 9 cm in maximum dimension. FREE FLUID: None seen. There is a small periportal/peripancreatic lymph node measuring 1.1 x 0.5 x 0.7 cm with normal ultrasound morphology. US/US abdomen comp w elastography IMPRESSION: 1. Impression: Normal appearing liver. 2. Liver elastography: Liver Stiffness less than 1.7 m/s: In the absence of other known clinical signs, rules out compensated advanced chronic liver disease. REFERENCE: Society of Radiologists in Ultrasound Liver Stiffness Thresholds (2020): LIVER STIFFNESS THRESHOLDS: *Liver Stiffness equal or less than 1.3 m/s: High probability of being normal. *Liver Stiffness less than 1.7 m/s: In the absence of other known clinical signs, rules out compensated advanced chronic liver disease. *Liver Stiffness 1.7-2.1 m/s: Suggestive of compensated advanced chronic liver disease but need further test for confirmation. *Liver Stiffness over 2.1 m/s: Rules in compensated advanced chronic liver disease. *Liver Stiffness over 2.4 m/s: Suggestive of clinically significant portal hypertension. QUALITY OF DATA SET: *IQR/Median value equal or less than 0.15 implies a quality data set. *IQR/Median value over 0.15 implies a poor quality data set. SIGNIFICANT CHANGE FROM PRIOR EXAM: Significant change if liver stiffness measurement is 10% or greater from prior exam. OTHER CONSIDERATIONS: The stage of liver fibrosis may be overestimated in the setting of acute hepatitis, liver inflammation, elevated liver function tests, hepatic vascular congestion, obstructive cholestasis, non-fasting state, and infiltrative diseases such as amyloidosis and lymphoma. In some patients with NAFLD, the liver stiffness thresholds for compensated advanced chronic liver disease may be lower. In causes other than viral hepatitis and NAFLD, liver stiffness thresholds are not well established. Electronically signed by: Halley Noonan MD 04/27/2025 12:14 PM EDT RP Dictated By: Halley Noonan MD Signed By: <Electronically signed by Halley Noonan MD in OV> 04/27/25 1214 DD/ 1002 TD/TT: 04/27/25 1033 Communications Tech: EL[facility] External Provider IMG US PROCEDURES Final Result * (ABNORMAL) POCT HGB A1C (03/11/2025 10:53 AM EDT) Hemoglobin A1C 7.3(A) 4.0 - 5.7 % QC Media Lot # [id number] Lot# Expiration Date , Blood 03/11/2025 10:5 3 AM EDT Kera Maria MD POINT OF CARE TEST ENTER/EDIT OR DERABLES Final Result * Hm Diabetes Eye Exam (01/06/2025 9:58 AM EDT) Historical Provider HEALTH MAINTENANCE Final Result * Lipid Panel with Reflex to Direct LDL (12/15/2024 10:58 AM EDT) Triglycerides 138 <150 mg/dL [facility] Comment:Desirable Triglyceri de: less than 150 mg/dLBorderline High Triglyceride 150-199 mg/dLHigh Triglyceride: 200-499 mg/dLVery High Triglyceride: greater than or equal to 5OO mg/dL Cholesterol 116 <200 mg/dL [facility] Comment:Desirable Cholestero l: less than 200 mg/dLBorderline High Cholesterol: 200-239 mg/dLHigh Cholesterol: greater than 239 mg/dL LDL Cholesterol Calculated 43 <100 mg/dL [facility] Comment:Desirable LDL: less than 100 mg/dLNear Optimal/Above Optimal LDL: 110- 129 mg/dLBorderline High LDL: 130-159 mg/dLHigh LDL: 160-189 mg/dLVery High LDL: greater than or equal to 190 mg/dL HDL Cholesterol 46 >40 mg/dL [facility] Comment:Desirable HDL: great er than 40 mg/dL Note: This HDL assay may give artificially low results in patients with liver disease. Blood 12/15/2024 10:5 8 AM EDT 12/15/2024 1:21 PM EDT us Kera Maria MD LAB BLOOD ORDERABLES Final Resul t Performing Organization Address [facility] de Phone Number [facility] [address] [place] [phone] * (ABNORMAL) Albumin, Random Urine W/Creatinine (12/15/2024 10:58 AM EDT) Creatinine, Urine 16.18 mg/dL [facility] Microalbumin Urine 11.0 mg/L [facility] Microalbum Creatinine Ratio Ur 67.9(H) <30 ug/mg cr [facility] Comment:Albumin/Creatinine R atio Reference Ranges: Normal: < 30 ug/mg creatinine Microalbuminuria: 30 - 300 ug/mg creatinineClinical Albuminuria: > 300 ug/mg creatinine 12/15/2024 10:5 8 AM EDT 12/15/2024 1:16 PM EDT us Kera Maria MD LAB URINE ORDERABLES Final Resul t Performing Organization Address [facility] de Phone Number [facility] [address] [place] [phone] * Hm Colonoscopy (09/10/2024 1:05 PM EST) us Historical Provider HEALTH MAINTENANCE Final Result * BI Mammogram Screening Tomosynthesis Bilateral (11/29/2023 10:25 AM EDT) Anatomical Region Laterality Modality Breast Bilateral Mammography 11/29/2023 10:2 5 AM EDT Narrative 12/27/2023 9:22 AM EDT [facility] [place] [address] Mammography Report Signed Patient: Sofía Penny MR#: [id number] : 1950 Acct:[id number] Age/Sex: 73 / F ADM Date: 11/29/23 Loc: MAMMO Attending Dr: Kera Maria MD Ordering Physician: Kera Maria MD Results: 1Negative Date of Service: 11/29/23 Follow Up: 1 Year From Orig ina Mammogram Procedure(s): MM tomosynthesis screening BI Accession Number(s): [id number] cc: Kera Maria MD EXAMINATION: MM SCREENING [...] signed by Yesica Villar MD in OV> 12/27/2318 DD/ 1025 TD/TT: Communications Tech: Procedure Note Donotuseinterpreter, Image - 12/27/[address] [place] [address] Mammography Report Signed Patient: Connie PennyR#: [id number] : 1950cct:[id number] Age/Sex: 73 / FADM Date: 11/29/23 Loc: MAMMO Attending Dr: Kera Maria MD Ordering Physician: Kera Maria MDResults: 1Negative Date of Service: 11/29/23Follow Up: 1 Year From [facility] Mammogram Procedure(s): MM tomosynthesis screening BI Accession Number(s): [id number] cc: Kera Maria MD EXAMINATION: MM SCREENING [...] in OV> 12/27/23 0918 DD/ 1025 TD/TT: Communications Tech: Kera Maria MD [facility] [place] PROCEDURES Edited Result - Final from Last 3 Months or Most Recently Relevant to Health Maintenance Additional Health Concerns Active Problems Noted Date [...] 06/08/2025 Patient has chronic kidney disease 06/08/2025 Insurance [facility] Care Teams Kitchen Aide Relationship Specialty Start Date End Date Kera Maria MD [address] [place] [address] PCP - General Family Medicine 07/22/18 Lev Smith, PharmD [address] [place] [address] Pharmacist Internal Medicine 11/12/24
--- OUTSIDE RECORDS SUMMARY | 2025-06-09 17:31 | XMS_ITS | Encounter Summary ---
Author Organization [employer] [facility] Address [address] [place] [address] 7t [place] [address] Care Team Providers Care Oral Therapist Name Role Phone Kera Maria MD Primary Care Provider [phone] Lev Smith PharmD Unavailable [phone] Encounter Details Date Type Department Care Team (Late st Contact Info) Description 01/11/2023 Orders Only [facility] [address] [place] [phone] Juhi Onofre LPN Social History Tobacco Use [...] Description 08/06/2025 10:30 AM EST Medication Management [facility] [address] [place] [address] [phone] Lev Smith, PharmD [address] [place], [place] [phone] documented as of this encounter Visit Diagnoses Not on filedocumented in this encounter Care Teams Oral Therapist Relationship Specialty Start Date End Date Kera Maria MD [address] [place] [address] [phone] PCP - General Family Medicine 07/22/18 Lev Smith, PharmD 230 [place] [address] Pharmacist Internal Medicine 11/12/24 documented as of this encounter
--- OUTSIDE RECORDS SUMMARY | 2025-06-09 17:31 | XMS_ITS | Encounter Summary ---
Author Organization [employer] [facility] Address [address] [place] [address] 7t [place] [address] Care Team Providers Care Lamination Inspector Name Role Phone Kera Maria MD Primary Care Provider [phone] Lev Smith PharmD Unavailable [phone] Encounter Details Date Type Department Care Team (Late st Contact Info) Description 10/15/2022 Orders Only [facility] [address] [place] [address] [phone] Juhi Onofre LPN Social History Tobacco Use [...] Description 08/06/2025 10:30 AM EST Medication Management [facility] [address] [place] [address] [phone] Lev Smith, PharmD [address] [place], [place] [phone] documented as of this encounter Visit Diagnoses Not on filedocumented in this encounter Care Teams Lamination Inspector Relationship Specialty Start Date End Date Kera Maria MD [address] [place] [address] [phone] PCP - General Family Medicine 07/22/18 Lev Smith, PharmD [address] [place] [address] Pharmacist Internal Medicine 11/12/24 documented as of this encounter
--- OUTSIDE RECORDS SUMMARY | 2025-06-09 17:31 | XMS_ITS | Encounter Summary ---
Author Organization [employer] Address [address] [facility] 7t [place] [address] Care Team Providers Care National Coverage Specialist Name Role Phone Kera Maria MD Primary Care Provider [phone] Lev Smith PharmD Unavailable [phone] Encounter Details Date Type Department Care Team (Late st Contact Info) Description 08/09/2022 Abstract [facility] [address] [place] [address] [phone] Kera Maria MD [address] [place] [address] [phone] Social History Tobacco Use Types Packs/Day Years [...] Description 08/06/2025 10:30 AM EST Medication Management [facility] [address] [place] [address] [phone] Lev Smith, PharmD 230 [place], [place] [phone] documented as of this encounter Procedures Procedure Name Priority Date/Time Associated Diagnosis Comments MAMMOGRAPHY Routine 08/06/2022 documented in this encounter Results * Mammography (08/06/2022) Mammogram perform Anatomical Region Laterality Modality Other us Historical Provider HEALTH MAINTENANCE Final Result documented in this encounter Visit Diagnoses Not on filedocumented in this encounter Care Teams National Coverage Specialist Relationship Specialty Start Date End Date Kera Maria MD 230 [place], [place] [phone] PCP - General Family Medicine 07/22/18 Lev Smith, HermilaD 230 [place] [address] Pharmacist Internal Medicine 11/12/24 documented as of this encounter
--- OUTSIDE RECORDS SUMMARY | 2025-06-09 17:31 | XMS_ITS | Encounter Summary ---
Author Organization [employer] [facility] Address [address] [place] [address] 7t [place] [address] Care Team Providers Care Senior It Auditor Name Role Phone Kera Maria MD Primary Care Provider [phone] Lev Smith PharmD Unavailable [phone] Encounter Details Date Type Department Care Team (Late st Contact Info) Description 08/09/2022 Abstract [facility] [address] [place] [address] [phone] Kera Maria MD [address] [place] [address] Social History Tobacco Use Types Packs/Day Years [...] Description 08/06/2025 10:30 AM EST Medication Management [facility] [address] [place] [address] Lev Smith, PharmD [address] [place], [place] [phone] documented as of this encounter Visit Diagnoses Not on filedocumented in this encounter Care Teams Senior It Auditor Relationship Specialty Start Date End Date Kera Maria MD [address] [place] [address] PCP - General Family Medicine 07/22/18 Lev Smith, HermilaD 230 [place] [address] Pharmacist Internal Medicine 11/12/24 documented as of this encounter
--- OUTSIDE RECORDS SUMMARY | 2025-06-09 17:31 | XMS_ITS | Encounter Summary ---
Author Organization [employer] Address [address] [facility] 7t [place] [address] Care Team Providers Care Shampoo Person Name Role Phone Kera Maria MD Primary Care Provider [phone] Lev Smith PharmD Unavailable [phone] Reason for Referral * Consultation (Routine) - Canceled Specialty Diagnoses / Procedures Referred By Contac t Referred To Contact Pharmacy Diagnoses Type 2 diabetes mellitus with hyperglycemia, with long-term current use of insulin (HCC) Essential hypertension Kera Maria MD [address] [place] [phone] Phone: tel: fax: Referral ID Status Reason Start Date Expiration Date V isits Requested Visits Authorized [id number] Canceled Consult and Treat 10/16/2024 10/16/2025 6 6 Encounter Details Date Type Department Care Team (Late st Contact Info) Description 10/16/2024 Orders Only [facility] [address] [place] [address] [phone] Kera Maria MD [address] [place], [place] [phone] Type 2 diabetes mellitus with hyperglycemia, with [...] Description 08/06/2025 10:30 AM EST Medication Management [facility] 230 [place] [address] Lev Smith, PharmD 230 [place] [address] Scheduled Referrals Name Type Priority Associated Diagnoses Orde r Schedule Referral to Pharmacy CDTM Outpatient Referral Routine Type 2 diabetes mellitus with hyperglycemia, with long-term current use of insulin ([facility]) Essential hypertension Ordered: 10/16/2024 documented as of this encounter Visit Diagnoses Diagnosis Type 2 diabetes mellitus with hyperglycemia, with long-term current use of insulin ([facility])- Primary Essential hypertension Unspecified essential hypertension Dyslipidemia Other and unspecified hyperlipidemia documented in this encounter Care Teams Shampoo Person Relationship Specialty Start Date End Date Kera Maria MD [address] [place] [address] PCP - General Family Medicine 07/22/18 Lev Smith, PharmD [address] [place] [address] [place] [address] Pharmacist Internal Medicine 11/12/24 documented as of this encounter
--- OUTSIDE RECORDS SUMMARY | 2025-06-09 17:31 | XMS_ITS | Encounter Summary ---
Author Organization [facility] Address [address] [facility] 7t [place] [address] Care Team Providers Care Sand Polisher Name Role Phone Kera Maria MD Primary Care Provider [phone] Lev Smith PharmD Unavailable [phone] Encounter Details Date Type Department Care Team (Late st Contact Info) Description 03/11/2023 Orders Only [facility] [address] [place] [address] Elena Unger LPN Social History Tobacco Use [...] Description 08/06/2025 10:30 AM EST Medication Management [facility] 230 [place] [address] Lev Smith, PharmD 230 [place] [address] documented as of this encounter Visit Diagnoses Not on filedocumented in this encounter Care Teams Sand Polisher Relationship Specialty Start Date End Date Kera Maria MD 230 [place] [address] PCP - General Family Medicine 1/1/19 Lev Smith, PharmD [address] [place] [address] Pharmacist Internal Medicine 11/12/24 documented as of this encounter
--- OUTSIDE RECORDS SUMMARY | 2025-06-09 17:31 | XMS_ITS | Encounter Summary ---
Author Organization [employer] Address [address] [facility] 7t [place] [address] Care Team Providers Care Tablet Technician Name Role Phone Kera Maria MD Primary Care Provider [phone] Lev Smith PharmD Unavailable [phone] Encounter Details Date Type Department Care Team (Late st Contact Info) Description 10/15/2022 Orders Only [facility] [address] [place] [address] Elena Unger LPN Social History Tobacco Use [...] Description 08/06/2025 10:30 AM EST Medication Management [facility] 230 [place] [address] Lev Smith, PharmD [address] [place] [address] documented as of this encounter Visit Diagnoses Not on filedocumented in this encounter Care Teams Tablet Technician Relationship Specialty Start Date End Date Kera Maria MD 230 [place] [address] PCP - General Family Medicine 1/1/19 Lev Smith, PharmD [address] [place] [address] Pharmacist Internal Medicine 11/12/24 documented as of this encounter
--- OUTSIDE RECORDS SUMMARY | 2025-06-09 17:31 | XMS_ITS | Encounter Summary ---
Author Organization [employer] Address [address] [facility] [address] [facility] [address] 7t [place] [address] Care Team Providers Care Mangle Tender Name Role Phone Kera Maria MD Primary Care Provider [phone] Lev Smith PharmD Unavailable [phone] Encounter Details Date Type Department Care Team (Late st Contact Info) Description 09/14/2024 Orders Only [facility] [address] [place], [place] [phone] ProviderChey MD Social History Tobacco Use Types [...] Description 08/06/2025 10:30 AM EST Medication Management [facility] 230 [place] [address] Lev Smith, PharmD 230 [place] [address] documented as of this encounter Procedures Procedure Name Priority Date/Time Associated Diagnosis Comments HM COLONOSCOPY Routine 09/10/2024 1:05 PM EST documented in this encounter Results * Hm Colonoscopy (09/10/2024 1:05 PM EST) Historical Provider HEALTH MAINTENANCE Final Result documented in this encounter Visit Diagnoses Not on filedocumented in this encounter Care Teams Mangle Tender Relationship Specialty Start Date End Date Kera Maria MD [address] [place] [address] PCP - General Family Medicine 07/22/18 Lev Smith, Steven [address] [place] [address] Pharmacist Internal Medicine 11/12/24 documented as of this encounter
--- OUTSIDE RECORDS SUMMARY | 2025-06-09 17:32 | XMS_ITS | Encounter Summary ---
Author Organization [employer] Address [address] [facility] 7t [place] [address] Care Team Providers Care Vp Scientific Affairs Name Role Phone Kera Maria MD Primary Care Provider [phone] Lev Smith PharmD Unavailable [phone] Reason for Visit * Reason Onset Date Comments Appointment Request 05/10/2023 Encounter Details Date Type Department Care Team (Late st Contact Info) Description 05/10/2023 Telephone [facility] [address] [place] [phone] Kera Maria MD [address] [place] [address] Appointment Request Social History Tobacco Use Types [...] appt with PCP, any question contact pt [phone]. documented in this encounter Plan of Treatment Upcoming Encounters Date Type Department Care Team (Late st Contact Info) Description 08/06/2025 10:30 AM EST Medication Management [facility] 230 [place] [address] Lev Smith, Steven 230 [place] [address] documented as of this encounter Visit Diagnoses Not on filedocumented in this encounter Care Teams Vp Scientific Affairs Relationship Specialty Start Date End Date Kera Maria MD [address] [place] [address] PCP - General Family Medicine 07/22/18 Lev Smith, PharmD [address] [place] [address] Pharmacist Internal Medicine 11/12/24 documented as of this encounter
--- OUTSIDE RECORDS SUMMARY | 2025-06-09 17:32 | XMS_ITS | Encounter Summary ---
Author Organization [employer] Address [address] [facility] 7t [place] [address] Care Team Providers Care Pullboat Engineer Name Role Phone Kera Maria MD Primary Care Provider [phone] Lev Smith PharmD Unavailable [phone] Encounter Details Date Type Department Care Team (Late st Contact Info) Description 05/22/2023 Orders Only [facility] 505 [place] [address] Juhi Onofre LPN Social History Tobacco Use [...] Description 08/06/2025 10:30 AM EST Medication Management [facility] 230 [place] [address] Lev Smith, PharmD 230 [place] [address] documented as of this encounter Visit Diagnoses Not on filedocumented in this encounter Care Teams Pullboat Engineer Relationship Specialty Start Date End Date Kera Maria MD 230 [place], [place] [phone] PCP - General Family Medicine 07/22/18 Lev Smith, PharmD 230 [place] [address] Pharmacist Internal Medicine 11/12/24 documented as of this encounter
--- OUTSIDE RECORDS SUMMARY | 2025-06-09 17:32 | XMS_ITS | Encounter Summary ---
Author Organization [employer] Address [address] [facility] [address] 7t [place] [address] Care Team Providers Care Account Manager B2B Name Role Phone Kera Maria MD Primary Care Provider [phone] Lev Smith PharmD Unavailable [phone] Encounter Details Date Type Department Care Team (Latest Contact Info) Description 06/08/2025 Travel Social History Tobacco Use Types Packs/Day Years Used Date Smoking Tobacco: Never Passive Smoke Exposure: Never Smokeless Tobacco: Never Depression Answer Date Recorded Patient Health Questionnaire-9 Score 0 03/11/2025 Patient Health Questionnaire-9 Score 0 03/11/2025 Last PHQ-9: Questionnaire Data Not on file 0 03/11/2025 Housing Stability Answer Date Recorded What is your housing situation today? I have bren yadav 03/11/[address] you [...] Description 08/06/2025 10:30 AM EST Medication Management [facility] 230 [place] [address] Lev Smith, HermilaD 230 [place] [address] documented as of this encounter Goals Goal [...] Plan Patient has chronic kidney disease No Arzola, Elena, PharmD documented as of this encounter Visit Diagnoses Not on filedocumented in this encounter Additional Health Concerns Active [...] Time PHQ-9 Depression Total Score: 0 03/11/20 10:50 AM EDT documented as of this encounter Care Teams Account Manager B2B Relationship Specialty Start Date End Date Kera Maria MD [address] [place] [address] PCP - General Family Medicine 07/22/18 Lev Smith, HermilaD 230 [place] [address] Pharmacist Internal Medicine 11/12/24 documented as of this encounter
--- OUTSIDE RECORDS SUMMARY | 2025-06-09 17:32 | XMS_ITS | Encounter Summary ---
Author Organization [employer] Address [address] [facility] [address] 7t [place] [address] Care Team Providers Care Bender Hand Name Role Phone Kera Maria MD Primary Care Provider [phone] Lev Smith PharmD Unavailable [phone] Reason for Visit * Reason Comments Med Refill Encounter Details Date Type Department Care Team (Late st Contact Info) Description 07/04/2023 Refill [facility] 505 [place], [place] [phone] Kera Maria MD 230 [place], [place] [phone] Social History Tobacco Use Types Packs/Day Years [...] Description 08/06/2025 10:30 AM EST Medication Management [facility] 230 [place] [address] Lev Smith, PharmD 230 [place] [address] documented as of this encounter Visit Diagnoses Not on filedocumented in this encounter Care Teams Bender Hand Relationship Specialty Start Date End Date Kera Maria MD [address] [place] [address] PCP - General Family Medicine 07/22/18 Lev Smiht, PharmD [address] [place] [address] Pharmacist Internal Medicine 11/12/24 documented as of this encounter
--- OUTSIDE RECORDS SUMMARY | 2025-06-09 17:32 | XMS_ITS | Encounter Summary ---
Author Organization [employer] Address [address] [facility] 7t [place] [address] Care Team Providers Care Feather Baler Name Role Phone Kera Maria MD Primary Care Provider [phone] Lev Smith PharmD Unavailable [phone] Reason for Visit * Reason Comments Med Refill Encounter Details Date Type Department Care Team ([facility] st Contact Info) Description 04/17/2024 Refill [facility] [address] [place], [place] [phone] Kera Maria MD 230 [place], [place] [phone] Social History Tobacco Use Types Packs/Day Years [...] Description 08/06/2025 10:30 AM EST Medication Management [facility] [address] [place] [address] Lev Smith, PharmD 230 [place] [address] documented as of this encounter Visit Diagnoses Not on filedocumented in this encounter Care Teams Feather Baler Relationship Specialty Start Date End Date Kera Maria MD [address] [place] [address] PCP - General Family Medicine 07/22/18 Lev Smith, PharmD [address] [place] [address] Pharmacist Internal Medicine 11/12/24 documented as of this encounter
--- OUTSIDE RECORDS SUMMARY | 2025-06-09 17:32 | XMS_ITS | Encounter Summary ---
Author Organization [employer] Address [address] [facility] [address] 7t [place] [address] Care Team Providers Care Washing Machine Installer Name Role Phone Kera Maria MD Primary Care Provider [phone] Lev Simth PharmD Unavailable [phone] Reason for Visit * Reason Onset Date Comments Results 06/26/2023 Encounter Details Date Type Department Care Team ([facility] st Contact Info) Description 06/26/2023 Telephone [facility]INE 230 [place], [place] [phone] Kera Maria MD [address] [place], [place] [phone] Results Social History Tobacco Use Types Packs/Day [...] xray to knee. Please contact pt at [phone] (park interpreter needed) documented in this encounter Plan of Treatment Upcoming Encounters Date Type Department Care Team (Late st Contact Info) Description 08/06/2025 10:30 AM EST Medication Management [facility] [address] [place] [address] Lev Smith, PharmD 230 [place] [address] documented as of this encounter Visit Diagnoses Not on filedocumented in this encounter Care Teams Washing Machine Installer Relationship Specialty Start Date End Date Kera Maria MD [address] [place] [address] PCP - General Family Medicine 07/22/18 Lev Smith, PharmD [address] [place] [address] Pharmacist Internal Medicine 11/12/24 documented as of this encounter
--- OUTSIDE RECORDS SUMMARY | 2025-06-09 17:32 | XMS_ITS | Clinical Summary ---
Demographics Address [address] [facility] [address] [place] [address] Mobile Phone Home Phone Preferred Language es Marital Status Unknown Restorationist Affiliation Unknown Race Unknown Ethnic Group Unknown Author Organization [facility] Address [address] [place] [address] Phone Care Team Providers Care Diesel Motor Mechanic Name Role Phone Kera Maria MD Primary Care Provider [phone] Allergies No known active allergies Medications aspirin [...] 05/27/2017, 05/21/2016, 04/19/2013, Additional history exists Insurance [email or web address] ([id number]) [email or web address] ([id number]) Care Teams Diesel Motor Mechanic Relationship Specialty Start Date End Date Kera Maria MD PCP - General 08/01/20
--- OUTSIDE RECORDS SUMMARY | 2025-06-09 17:32 | XMS_ITS | Encounter Summary ---
Author Organization [employer] Address [address] [facility] [facility] [address] 7t [place] [address] Care Team Providers Care Solution Maker Name Role Phone Kera Maria MD Primary Care Provider Lev Smith PharmD Unavailable [phone] Encounter Details Date Type Department Care Team (Late st Contact Info) Description 06/08/2025 Refill [facility] [address] [place], [place] [phone] Kera Maria MD 230 [place], [place] [phone] Depression, unspecified depression type Social History Tobacco Use Types Packs/Day Years [...] Description 08/06/2025 10:30 AM EST Medication Management [facility] [address] [place] [address] Lev Smith, PharmD 230 [place] [address] documented as of this encounter Goals Goal [...] Care Plan Weekly blood pressure task No ArzolaElena fernandes PharmD Weekly blood pressure task Care Plan Weekly blood pressure task No Elena Arzola PharmD Patient has chronic kidney disease Care Plan Patient has chronic kidney disease No Elena Arzola PharmD Patient has chronic kidney disease Care Plan Patient has chronic kidney disease No Elena Arzola PharmD documented as of this encounter Visit Diagnoses Diagnosis Depression, unspecified depression type documented in this encounter Additional Health Concerns [...] documented as of this encounter Care Teams Solution Maker Relationship Specialty Start Date End Date Kera Maria MD 230 [place] [address] PCP - General Family Medicine 07/22/18 Lev Smith, Steven [address] [place] [address] Pharmacist Internal Medicine 11/12/24 documented as of this encounter
--- OUTSIDE RECORDS SUMMARY | 2025-06-09 17:32 | XMS_ITS | Encounter Summary ---
Author Organization [employer] Address [address] [facility] 7t [place] [address] Care Team Providers Care Director Drug Safety Name Role Phone Kera Maria MD Primary Care Provider [phone] Lev Smith PharmD Unavailable [phone] Reason for Visit * Reason Comments Med Refill Encounter Details Date Type Department Care Team (Late st Contact Info) Description 06/04/2025 Refill [facility] 230 [place], [place] [phone] Kera Maria MD 230 [place], [place] [phone] Type 2 diabetes mellitus with hyperglycemia, with long-term current use of insulin (HCC) Social History Tobacco Use Types Packs/Day Years Used Date Smoking Tobacco: Never Passive Smoke Exposure: Never Smokeless Tobacco: Never Depression Answer Date Recorded Patient Health Questionnaire-9 Score 0 03/11/2025 Patient Health Questionnaire-9 Score 0 03/11/2025 Last PHQ-9: Questionnaire Data Not on file 0 03/11/2025 Housing Stability Answer Date Recorded What is your housing situation today? I have bren vicenta 03/11/[address] you li [...] Description 08/06/2025 10:30 AM EST Medication Management [facility] [address] [place] [address] Lev Smith, PharmD 230 [place] [address] documented as of this encounter Visit Diagnoses Diagnosis Type 2 diabetes mellitus with hyperglycemia, with long-term current use of insulin (HCC) documented in this encounter Additional Health Concerns Assessment Noted Time PHQ-9 Depression Total Score: 0 03/11/20 25 10:50 AM EDT documented as of this encounter Care Teams Director Drug Safety Relationship Specialty Start Date End Date Kera Maria MD [address] [place] [address] PCP - General Family Medicine 07/22/18 Lev Smith, PharmD [address] [place] [address] Pharmacist Internal Medicine 11/12/24 documented as of this encounter
--- OUTSIDE RECORDS SUMMARY | 2025-06-09 17:32 | XMS_ITS | Encounter Summary ---
Author Organization [employer] Address [address] [facility] [address] [place] [address] Care Team Providers Care Printed Circuit Board Preassembler Name Role Phone Kera Maria MD Primary Care Provider [phone] Lev Smith PharmD Unavailable [phone] Encounter Details Date Type Department Care Team (Late st Contact Info) Description 01/11/2025 Orders Only [facility] [address] [place], [place] [phone] ProviderChey MD Social History Tobacco Use Types Packs/Day Years Used Date Smoking Tobacco: Never Passive Smoke Exposure: Never Smokeless Tobacco: Never Housing Stability Answer Date Recorded What is your housing situation today? I have bren vicetna 06/20/[address] you li [...] AM EST Medication Management [facility] 230 [place] [address] Lev Smith, PharmD 230 [place] [address] documented as of this encounter Procedures Procedure Name Priority Date/Time Associated Diagnosis Comments DIABETES EYE EXAM Routine 01/06/2025 9:58 AM EDT documented in this encounter Results * Hm Diabetes Eye Exam (01/06/2025 9:58 AM EDT) Historical Provider HEALTH MAINTENANCE Final Result documented in this encounter Visit Diagnoses Not on filedocumented in this encounter Care Teams Printed Circuit Board Preassembler Relationship Specialty Start Date End Date Kera Maria MD 230 [place] [address] PCP - General Family Medicine 07/22/18 Lev Smith, Steven [address] [place] [address] Pharmacist Internal Medicine 11/12/24 documented as of this encounter
--- OUTSIDE RECORDS SUMMARY | 2025-06-09 17:32 | XMS_ITS | Encounter Summary ---
Author Organization [employer] Address [address] [facility] 7t [place] [address] Care Team Providers Care Event Executive Name Role Phone Kera Maria MD Primary Care Provider [phone] Lev Smith PharmD Unavailable [phone] Reason for Referral * Imaging (Routine) - Closed Specialty Diagnoses / Procedures Referred By Contac t Referred To Contact Radiology Diagnoses Closed fracture of single pubic ramus of pelvis, right, initial encounter (CMS/HCC) (HCC) Postmenopause Osteoporosis screening declined Procedures BD DEXA Axial Kera Maria MD [address] [place] [address] Phone: tel: fax: [address] Phone: tel: fax: Referral ID Status Reason Start Date Expiration Date Visits Re quested Visits Authorized [id number] Closed 08/26/2023 08/25/2024 1 1 Encounter Details Date Type Department Care Team (Late st Contact Info) Description 08/26/2023 Orders Only [facility] [address] [place] [phone] Kera Maria MD [address] [place], [place] [phone] Closed fracture of single pubic ramus of [...] Description 08/06/2025 10:30 AM EST Medication Management [facility] 230 [place] [address] Lev Smith, PharmD [address] [place] [address] documented as of this encounter Procedures Procedure Name Priority Date/Time Associated Diagnosis Comments BD DEXA AXIAL Routine 09/13/2023 9:20 AM EST Closed fracture of single pubic ramus of pelvis, right, initial encounter ([facility]) Postmenopause Osteoporosis screening declined documented in this encounter Results * BD DEXA Axial (09/13/2023 9:20 AM EST) Anatomical Region Laterality Modality Body Radiographic Collette ging 09/13/2023 9:20 AM EST Narrative 09/13/2023 5:44 PM EST [facility] [address] [place] [address] Mammography Report Signed Patient: Sofía Penny MR#: [id number] : 1950 Acct:[id number] Age/Sex: 73 / F ADM Date: 09/13/23 Loc: HOArtemMAMMO Attending Dr: Kera Maria MD Ordering Physician: Kera Maria MD Results: Date of Service: 09/13/23 Follow Up: Procedure(s): XR DEXA axial skeleton Accession Number(s): [id number] cc: Kera Maria MD EXAMINATION: BONE DENSITOMETRY CLINICAL INDICATION: Postmenopausal. COMPARISON: This is the patient's baseline examination. TECHNIQUE: Using a 1CloudStar DXA System (software version: 13.1) manufactured by [employer], dual-energy x-ray absorptiometry was performed of the [...] in OV> 09/13/23 1740 DD/ 0920 TD/TT: Bisque Ware Dipper: DOROTHEA Procedure Note Donotuseinterpreter, Image - 09/13/2023 [place] [address] [place] [address] Mammography Report Signed Patient: Kaylee Penny#: [id number] : 1950cct:[id number] Age/Sex: 73 / FADM Date: 09/13/23 Loc: NICKIE Attending Dr: Kera Maria MD Ordering Physician: Kera Mariaesults: Date of Service: 09/13/23Follow Up: Procedure(s): XR DEXA axial skeleton Accession Number(s): [id number] cc: Kera Maria MD EXAMINATION: BONE DENSITOMETRY CLINICAL INDICATION: Postmenopausal. COMPARISON: This is the patient's baseline examination. TECHNIQUE: Using a 1CloudStar DXA System (software version: 13.1) manufactured by [employer], dual-energy x-ray absorptiometry was performed of the [...] in OV> 09/13/23 1740 DD/ 0920 TD/TT: Bisque Ware Dipper: DOROTHEA Kera Maria MD IMG DXA PROCEDURES Final Result documented in this encounter Visit Diagnoses Diagnosis Closed fracture of single pubic ramus of pelvis, right, initial encounter (CMS/HCC) (HCC)- Primary Postmenopause Asymptomatic postmenopausal status (age-related) (natural) Osteoporosis screening declined documented in this encounter Care Teams Event Executive Relationship Specialty Start Date End Date Kera Maria MD [address] [place], [place] [phone] PCP - General Family Medicine 07/22/18 Lev Smith, HermilaD [address] [place], [place] [phone] Pharmacist Internal Medicine 11/12/24 documented as of this encounter
--- OUTSIDE RECORDS SUMMARY | 2025-06-09 17:32 | XMS_ITS | Encounter Summary ---
Author Organization [employer] Address [address] [place] [address] 7t [place] [address] Care Team Providers Care Radiation Therapist Name Role Phone Kera Maria MD Primary Care Provider [phone] Lev Smith PharmD Unavailable [phone] Encounter Details Date Type Department Care Team (Late st Contact Info) Description 05/01/2023 Orders Only [facility] [address] [place], [place] [phone] Teresa Sotomayor MD [address] [place], [place] [phone] Social History Tobacco Use Types Packs/Day Years [...] 08/06/2025 10:30 AM EST Medication Management [facility] 230 [place], [place] [phone] Lev Smith, PharmD 230 [place] [address] documented as of this encounter Procedures Procedure [...] PM EDT Narrative 05/13/2023 7:18 PM EDT [address] [address] [address] Scan Report Signed Patient: Sofía Penny MR#: [id number] : 1950 Acct:[id number] Age/Sex: 72 / F ADM Date: 05/13/23 Loc: HO.ED Attending Dr: Ordering Physician: Tammi Andrew Date of Service: 05/13/23 Procedure(s): CT cervical spine wo IV con Accession Number(s): [id number] cc: Tammi Andrew; Kera Maria MD EXAMINATION: [...] MD in OV> 05/13/231914 DD/ 06 TD/TT: Frame Polisher: ELMO Procedure Note Donotuseinterpreter, Image - 05/13/[address] [address] [address] Scan Report Signed Patient: Kaylee Penny#: [id number] : 1950cct:[id number] Age/Sex: 72 / FADM Date: 05/13/23 Loc: HO.ED Attending Dr: Ordering Physician: Tammi Andrew Date of Service: 05/13/23 Procedure(s): CT cervical spine wo IV con Accession Number(s): [id number] cc: Tammi Andrew; Kera Maria MD EXAMINATION: [...] MD in OV> 05/13/231914 DD/ 06 TD/TT: Frame Polisher: ELMO [facility] External Provider IMG MRI PROCEDURES Edited Result - Final * MR Pelvis w/o Contrast (05/13/2023 6:07 PM EDT) Anatomical Region Laterality Modality Body, Pelvis Magnetic Resonan ce 05/13/2023 6:07 PM EDT Narrative 05/13/2023 7:01 PM EDT [address] [address] [address] Scan Report Signed Patient: Sofía Penny MR#: [id number] : 1950 Acct:[id number] Age/Sex: 72 / F ADM Date: 05/13/23 Loc: HO.ED Attending Dr: Ordering Physician: Tammi Andrew Date of Service: 05/13/23 Procedure(s): CT pelvis wo IV con Accession Number(s): [id number] cc: Tammi Andrew; Kera Maria MD EXAMINATION: [...] in OV> 05/13/23 1858 DD/ 1807 TD/TT: Frame Polisher: SS Procedure Note Donotuseinterpreter, Image - 05/13/[address] [place] [address] [address] Scan Report Signed Patient: Kaylee Penny#: [id number] : 1950cct:[id number] Age/Sex: 72 / FADM Date: 05/13/23 Loc: HO.ED Attending Dr: Ordering Physician: Tammi Andrew Date of Service: 05/13/23 Procedure(s): CT pelvis wo IV con Accession Number(s): [id number] cc: Tammi Andrew; Kera Maria MD EXAMINATION: [...] signed by Reid Moreno MD in OV> 05/13/238 DD/ 06 TD/TT: Frame Polisher: SS [facility] External Provider IMG MRI PROCEDURES Edited Result - Final * CT Head w/o Contrast (05/13/2023 6:07 PM EDT) Anatomical Region Laterality Modality Head, Neck Computed Tomogra phy 05/13/2023 6:07 PM EDT Narrative 05/13/2023 6:59 PM EDT [place] [address] CT Scan Report Signed Patient: Sofía Penny MR#: [id number] : 1950 Acct:[id number] Age/Sex: 72 / F ADM Date: 05/13/23 Loc: HO.ED Attending Dr: Ordering Physician: Tammi Andrew Date of Service: 05/13/23 Procedure(s): CT head/brain wo IV con Accession Number(s): [id number] cc: Tammi Andrew; Kera Maria MD EXAMINATION: [...] by Halley Noonan MD in OV> 05/13/23 185 DD/ 06 TD/TT: Frame Polisher: ELMO Procedure Note Donotuseinterpreter, Image - 05/13/[address] [place] [address] [address] Scan Report Signed Patient: Kaylee Penny#: [id number] : 1950cct:[id number] Age/Sex: 72 / FADM Date: 05/13/23 Loc: HO.ED Attending Dr: Ordering Physician: Tammi Andrew Date of Service: 05/13/23 Procedure(s): CT head/brain wo IV con Accession Number(s): [id number] cc: Tammi Andrew; Kera Maria MD EXAMINATION: [...] in OV> 05/13/23 1856 DD/ 1807 TD/TT: Frame Polisher: ELMO [facility] External Provider IMG CT PROCEDURES Edited Result - Final * XR Hip right with Pelvis 1 view (05/13/2023 3:58 PM EDT) Anatomical Region Laterality Modality Lower Extremities, Hip Bilateral Radiograp hic Imaging 05/13/2023 3:58 PM EDT Narrative 05/13/2023 5:03 PM EDT [address] [address] XRay Report Signed Patient: Sofía Penny MR#: [id number] : 1950 Acct:[id number] Age/Sex: 72 / F ADM Date: 05/13/23 Loc: HO.ED Attending Dr: Ordering Physician: Tammi Andrew Date of Service: 05/13/23 Procedure(s): XR hip RT w PEL1V Accession Number(s): [id number] cc: Tammi Andrew; Kera Maria MD EXAMINATION: [...] signed by Oscar Oseguera MD in OV> 05/13/231658 DD/ 57 TD/TT: Frame Polisher: Procedure Note Donotuseinterpreter, Image - 05/13/[address] [address] XRay Report Signed Patient: Kaylee Penny#: [id number] : 1950cct:[id number] Age/Sex: 72 / FADM Date: 05/13/23 Loc: HO.ED Attending Dr: Ordering Physician: Tammi Andrew Date of Service: 05/13/23 Procedure(s): XR hip RT w PEL1V Accession Number(s): [id number] cc: Tammi Andrew; Kera Maria MD EXAMINATION: [...] signed by Oscar Oseguera MD in OV> 05/13/231658 DD/ 57 TD/TT: Frame Polisher: us [facility] External Provider IMG XR PROCEDURES Final Result documented in this encounter Visit Diagnoses Not on filedocumented in this encounter Care Teams Radiation Therapist Relationship Specialty Start Date End Date Kera Maria MD [address] [place], [place] [phone] PCP - General Family Medicine 07/22/18 Lev Smith, HermilaD [address] [place] [address] Pharmacist Internal Medicine 11/12/24 documented as of this encounter
--- OUTSIDE RECORDS SUMMARY | 2025-06-09 17:32 | XMS_ITS | Encounter Summary ---
Author Organization [employer] Address [address] [facility] 7t [place] [address] Care Team Providers Care Security Control Center Operator Name Role Phone Kera Maria MD Primary Care Provider Lev Smith PharmD Unavailable [phone] Reason for Referral * Consultation (Urgent) - Pending Review Specialty Diagnoses / Procedures Referred By Contac t Referred To Contact Pharmacy Diagnoses Type 2 diabetes mellitus with hyperglycemia, with long-term current use of insulin (HCC) Essential hypertension Kera Maria MD [address] [place] [address] Phone: tel: fax: Referral ID Status Reason Start Date Expiration Date Visits Requested Visits Authorized [id number] Pending Review Consult and Treat 10/19/2024 10/19/2025 6 6 Encounter Details Date Type Department Care Team (Late st Contact Info) Description 10/19/2024 Orders Only [facility] MEDICINE [address] [place] [address] [phone] Kera Maria MD [address] [place] [address] [phone] Type 2 diabetes mellitus with hyperglycemia, with [...] Description 08/06/2025 10:30 AM EST Medication Management [facility]INE [address] [place] [address] Lev Smith, PharmD [address] [place] [address] Scheduled Referrals Name Type Priority Associated Diagnoses Orde r Schedule Referral to Pharmacy CDTM Outpatient Referral Urgent Type 2 diabetes mellitus with hyperglycemia, with long-term current use of insulin ([facility]) Essential hypertension Ordered: 10/19/2024 documented as of this encounter Visit Diagnoses Diagnosis Type 2 diabetes mellitus with hyperglycemia, with long-term current use of insulin ([facility])- Primary Essential hypertension Unspecified essential hypertension documented in this encounter Care Teams Security Control Center Operator Relationship Specialty Start Date End Date Kera Maria MD [address] [place] [address] PCP - General Family Medicine 07/22/18 Lev Smith, HermilaD [address] [place] [address] Pharmacist Internal Medicine 11/12/24 documented as of this encounter
--- OUTSIDE RECORDS SUMMARY | 2025-06-09 17:32 | XMS_ITS | Encounter Summary ---
Author Organization [employer] Address [address] [facility] 7t [place] [address] Care Team Providers Care Manufacturing Group Leader Name Role Phone Kera Maria MD Primary Care Provider [phone] Lev Smith PharmD Unavailable [phone] Encounter Details Date Type Department Care Team (Late st Contact Info) Description 04/09/2023 Orders Only [facility]S [address] [place] [address] Juhi Onofre LPN Social History Tobacco Use [...] 08/06/2025 10:30 AM EST Medication Management [facility] MEDICINE [address] [place] [address] Lev Smith, PharmD [address] [place] [address] documented as of this encounter Visit Diagnoses Not on filedocumented in this encounter Care Teams Manufacturing Group Leader Relationship Specialty Start Date End Date Kera Maria MD [address] [place] [address] PCP - General Family Medicine 1/1/19 Lev Smith, PharmD [address] [place] [address] Pharmacist Internal Medicine 11/12/24 documented as of this encounter
--- OUTSIDE RECORDS SUMMARY | 2025-06-09 17:32 | XMS_ITS | Encounter Summary ---
Author Organization [employer] Address [address] [facility] [address] 7t [place] [address] Care Team Providers Care Recreation Specialist Name Role Phone Kera Maria MD Primary Care Provider [phone] Lev Smith PharmD Unavailable [phone] Reason for Visit * Reason Onset Date Comments chart prep 06/07/2025 Encounter Details Date Type Department Care Team (Late st Contact Info) Description 06/07/[address] [facility] [address] [place], [place] [phone] Kera Maria MD 230 [place], [place] [phone] chart prep Social History Tobacco Use Types [...] Telephone Encounter - Joanne Jimenez MA - 06/07/2025 9:40 AM EST ..Chart Prep Labs: not applicable Images: not applicable Vaccines due: Covid Due and Flu Due Referrals: Urology Pending appointment on 06/09, Pulmonology Pending appointment on 07/01, and Cardiology Pending appointment on 08/19 Screenings: Not Applicable Overdue care gaps: A1C, Glucose, and Sbirt documented in this encounter Plan of Treatment Upcoming Encounters Date Type Department Care Team (Late st Contact Info) Description 08/06/2025 10:30 AM EST Medication Management [facility] [address] [place] [address] Lev Smith, PharmD [address] [place] [address] documented as of this encounter Goals Goal Patient Goal Type Associated Problems Recent Progress Patient-Stated? Author Help patients manage their type 2 diabetes Care Plan Help patients manage their type 2 diabetes Joanne Hernandez MA Weekly blood pressure task Care Plan Weekly blood pressure task Joanne Hernandez MA Help patients manage their type 2 diabetes Care Plan Help patients manage their type 2 diabetes Joanne Hernandez MA Patient has chronic kidney disease Care [...] chronic kidney disease No Joanne Jimenez MA documented as of this encounter Visit Diagnoses [...] 06/07/2025 Patient has chronic kidney disease 06/07/2025 Assessment Noted Time PHQ-9 Depression Total Score: 0 03/11/20 25 10:50 AM EDT documented as of this encounter Care Teams Recreation Specialist Relationship Specialty Start Date End Date Kera Maria MD [address] [place] [address] PCP - General Family Medicine 07/22/18 Lev Smith, HermilaD [address] [place] [address] Pharmacist Internal Medicine 11/12/24 documented as of this encounter
== END 2025-06-09 10:08 | disposition home or self-care (01) ==
LOC: HO.HUSH 09:30
PROVIDERS: PCP Family Medicine; Visit Provider Nurse Practitioner Family
DX: N30.10 Interstitial cystitis (chronic) without hematuria (principal); R32 Unspecified urinary incontinence; N39.0 Urinary tract infection, site not specified; Z13.9 Encounter for screening, unspecified
CPT/HCPCS: 99213

== ENCOUNTER 2025-07-01 10:15 | Outpatient (AMB) | payer OTHER, SELFPAY ==
[2025-07-01 10:17] VITALS: BP 124/56; PULSE 73; O2SAT 98; BMI 33.4
--- NOTE | 2025-07-01 10:17 | A.OFFVIS_ITS ---
Vital Signs 07/01/25 10:17 Height 5 ft Weight 170 lb 13.732 oz BMI 33.4 BP 124/56 L Blood Pressure Location Lt brachial Position Sitting Pulse 73 Pulse Source Pulse Oximeter Pulse Oximetry (%) 98 Oxygen Delivery Method Room Air Intake Visit Reasons: Shortness of breath Applications Engineering Manager Required: Yes Applications Engineering Manager Services: Applications Engineering Manager Offered & Declined Applications Engineering Manager Name: MD speaks marshallese Accompanied by: Self / Same As Patient Allergies adhesive tape (ADHESIVE TAPE) Allergy (Intermediate, Verified 06/09/25 10:10) RASH-LOCALIZED No Known Drug Allergies Allergy (Unknown, Verified 06/09/25 10:10) none latex Allergy (Verified 06/09/25 10:10) Rash HPI Comments Details: The patient is a 75 year woman. Overall the patient has been doing well. Denies any respiratory complaints. She denies any shortness of breath or dyspnea or cough. The patient is not using any inhalers. We did review her recent pulmonary function studies demonstrating again a mild restrictive ventilatory defect consistent mild restrictive lung disease. Unchanged from last year. We did also review her chest x-ray that she had demonstrating sternotomy wires no significant parenchymal disease that we can appreciate. Clinically the patient is feeling well. No need to do additional imaging testing. Although if the patient develops any worsening respiratory symptoms or complaints will request additional imaging studies at that time. Otherwise the patient will return in a year's time with a chest x-ray. 03/26/2024 the patient is here for a pulmonary follow-up visit. Overall the patient has been doing well. He is having more allergy symptoms at this time though with a fall. Having cough. Nonproductive in nature moderate severity. Will make sure that she has her nasal therapy and also allergy therapy to be able to continue to treat her symptoms. The patient has has not had any recent chest imaging back in 10/08/2022 she had an x-ray without any acute disease. Although she did have a bad fall back in May where she had multiple imaging studies. She does mention that she did have a pelvis fracture that time. She is healing from that condition. Will continue with current respiratory therapy follow-up in a year's time. If the patient develops any worsening symptoms prior to that she would call for earlier assessment. 11/06/2024 the patient is here for a pulmonary follow-up visit. Recently she went to the ER because she was having shortness of breath. Sometimes she has a hard time even eating when she gets very short of breath. She may have some choking episodes as well. She went to the ER there she had an x-ray which I personally reviewed without any acute disease. He also have blood work was reassuring. The patient was told that she may need a nebulizer. Currently she does not have a rescue inhaler or any maintenance therapies. On exam she is also okay. Denies any significant allergy symptoms. Will go ahead and optimize respiratory therapy. I will have her try that 1st before get her nebulizer. If she feels like she needs additional therapies she will call and we will set her up with a nebulizer. The patient may need further GI evaluation. She may also benefit from a barium swallow. 07/01/2025 the patient is here for pulmonary follow-up visit. Overall the patient is doing well. She does have respiratory medications. She does use it as needed. She denies any significant respiratory complaints at this time. She also uses the CPAP at nighttime. CPAP therapy continues to be affecting beneficial. She gets her supplies from [facility]. The therapy has been affecting beneficial she does try to use it more than 4 hours a night. Her last chest x-ray was back in the spring personally by me without any acute disease. No additional imaging studies at this time. She is going to continue with the current respiratory regimen and she will follow-up in a year's time. If any issues arise she can always call further recommendations. [facility] Medical History Diabetes Osteoarthritis Migraine Elevated cholesterol CAD (coronary artery disease) BART (obstructive sleep apnea) Chronic restrictive lung disease DILSHAD (stress urinary incontinence, female) Recurrent UTI (urinary tract infection) Surgical History H/O esophagogastroduodenoscopy H/O colonoscopy History of bladder suspension procedure S/P CABG x 3 History of tubal ligation History of hysterectomy Family History Father Alcohol abuse Cirrhosis Mother Cervical cancer Paternal Grandfather Stomach cancer Social History Household Members: Children Alcohol intake: never Patient Tobacco Use Status: Never used Tobacco Advance Directives Date on File: 05/14/23 Current occupational status: retired Current occupation: lt handed Review of Systems Const Denies fatigue, Denies fever(s), Denies night sweats, Denies poor appetite and Denies weight loss ENT Reports Normal hearing present, Denies dental pain, Denies hearing loss, Denies mouth pain, Denies throat swelling, Denies tongue swelling and Reports other (Dentition adequate) Card Reports no additional complaints and Denies dyspnea on exertion Resp Denies cough, Denies dyspnea on exertion and Denies wheezing GI Denies abdominal pain Musc Reports no additional complaints Skin/Breast Denies rash Neuro Reports Normal hearing present and Denies Abnormal speech present Endo Denies fatigue Aller/Immun Denies throat swelling, Denies tongue swelling and Denies wheezing Physical Exam Vital Signs: Last Vital Signs Pulse 73 07/01/25 10:17 BP 124/56 L 07/01/25 10:17 Pulse Ox 98 07/01/25 10:17 Oxygen Delivery Method Room Air 07/01/25 10:17 BMI result Body Mass Index 33.4 Const General: cooperative Orientation/consciousness: oriented to person, oriented to place and oriented to time HEENT Head: Yes normocephalic and Yes atraumatic Eyes General: appearance normal, both eyes and all related structures Pupils: Equal, round and reactive pupils present Neck Neck: Yes normal visual inspection Resp Effort & Inspection: normal respiratory effort and able to speak in complete sentences Auscultation: diminished lung sounds Cardio Rate: regular rate Rhythm: regular rhythm Heart sounds: Normal, physiologic split S2 sound present GI Palpation (GI): Soft to palpation Skin General skin exam: no rashes or lesions noted, turgor normal, skin not dry, no jaundice, No spider nevi and no striae Rashes: no rashes Nails: normal Neuro General: oriented to person, oriented to place and oriented to time Cranial nerves: Yes Equal, round and reactive pupils present and Yes Normal hearing present Speech: No Abnormal speech present Extrem General: Yes normal to inspection, No clubbing, No cyanosis and No edema Psych Appearance: grossly normal Assessment & Plan Assessment & Plan (1) Chronic restrictive lung disease: Code(s): J98.4 - Other disorders of lung Category: Medical (2) Dyspnea: Code(s): R06.00 - Dyspnea, unspecified Category: Medical Qualifiers: Dyspnea type: dyspnea on exertion Qualified Code(s): R06.09 - Other forms of dyspnea (3) Obstructive sleep apnea: Comment: AHI 14/hr, REM AHI 43.8/hr, O2 esvin 78% Code(s): G47.33 - Obstructive sleep apnea (adult) (pediatric) Category: Medical Plan Azithromycin x 5 days continue APAP (Regional) Breo daily GILMAR as needed continue claritin continue Singulair Astelin nasal spray GILMAR as needed follow-up in 8-12 months Coding Level of Care Code Add On Preventative Visit Only Diagnoses Chronic restrictive lung disease J98.4 Dyspnea on exertion R06.09 Dyspnea type: dyspnea on exertion Obstructive sleep apnea G47.33 Time Spent (min) 17
== END 2025-07-01 10:43 | disposition home or self-care (01) ==
LOC: HO.HPS 10:15
PROVIDERS: PCP Family Medicine; Visit Provider Hospitalist
DX: J98.4 Other disorders of lung (principal); R06.09 Other forms of dyspnea; G47.33 Obstructive sleep apnea (adult) (pediatric)
CPT/HCPCS: 99214; G2211

== ENCOUNTER → 2025-07-01 10:15 | Outpatient (BNVA) | payer OTHER, SELFPAY | PROVIDERS: PCP Family Medicine; Visit Provider Hospitalist | DX: J98.4 Other disorders of lung (principal); G47.33 Obstructive sleep apnea (adult) (pediatric); R06.09 Other forms of dyspnea; Z79.899 Other long term (current) drug therapy | CPT/HCPCS: 99212 ==

== ENCOUNTER 2025-07-07 16:32 | Outpatient (REF) | payer OTHER, SELFPAY ==
--- OUTSIDE RECORDS SUMMARY | 2025-07-07 10:20 | XMS_ITS | Encounter Summary ---
Author Organization [employer] Address [address] [facility] [address] [place] [address] Care Team Providers Care Private Branch Exchange Operator Name Role Phone Kera Maria MD Primary Care Provider [phone] Lev Smith PharmD Unavailable [phone] Reason for Visit * Reason Comments UTI Encounter Details Date Type Department Care Team ([facility] Contact Info) Description 07/07/2025 10:20 AM EST Office Visit [facility] [address] [place] [address] [phone] Zen Parsons MD [address] [place] [address] [phone] UTI symptoms Social History Tobacco Use Types Packs/Day Years [...] Sign Reading Time Taken Comments Blood Pressure 149/71 07/07/2025 10:30 AM EST Pulse 89 07/07/2025 10:30 AM EST Temperature 36 C (96.8 F) 07/07/2025 10:30 AM EST Respiratory Rate 17 07/07/2025 10:30 AM EST Oxygen Saturation 99% 07/07/2025 10:30 AM EST Inhaled Oxygen Concentration - - Weight 77.1 kg (170 lb) 07/07/2025 10:30 AM EST Height 162.6 cm (5' 4 ) 07/07/2025 10:30 AM EST Body Mass Index 29.18 07/07/2025 10:30 AM EST documented in this encounter Progress Notes * Zen Parsons MD - 07/07/2025 10:20 AM EST Subjective Patient ID: Sofía Momin is a 75 y.o. female. Director Of Student Financial Aid: Germania MARISCAL 5 days ago Sofía had onset of burning on urination, urine odor, urgency. Denies fever, chills, n/v, vaginal discharge, abdominal or flank pain. Last positive urine C&S was done 05/25/2024, grew group B strep with no susceptibilities done. Urine C&S done 02/28/2024 grew Klebsiella pneumonia intermediate to nitrofurantoin, sensitive to cephalosporins and Bactrim, resistant to ampicillin. Lives with daughter. Never smoked. Patient Active Problem List Diagnosis Date Noted Constipation 06/13/2025 Osteopenia 09/07/2024 History of fracture of pelvis 09/07/2024 Coccyx pain 05/30/2024 BART (obstructive sleep apnea) 06/20/2023 Migraine 06/20/2023 Metabolic dysfunction-associated steatotic liver disease (MASLD) 06/20/2023 Restrictive airway disease 06/20/2023 Proteinuria 10/28/2020 Chronic interstitial cystitis 11/25/2017 Dyslipidemia 08/29/2017 Tubular adenoma of colon 08/29/2017 Peripheral venous insufficiency 05/21/2016 Ischemic heart disease 01/25/2016 Gastroesophageal reflux disease 10/12/2015 Mixed stress and urge urinary incontinence 10/12/2015 Atherosclerosis of [place] coronary artery of [place] heart without angina pectoris 04/25/2015 Insomnia 04/25/2015 Overweight 04/25/2015 Essential hypertension 04/25/2015 Type 2 diabetes mellitus (HCC) 01/05/2013 Allergic rhinitis 04/22/2012 Recurrent urinary tract infection 04/22/2012 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/16/2005 The following portions of the chart were reviewed this encounter and updated as appropriate: Review of Systems Constitutional: Negative for fever. Respiratory: Negative for shortness of breath. Cardiovascular: Negative for chest pain. Gastrointestinal: Negative for abdominal pain. Genitourinary: Positive for dysuria and urgency. Negative for flank pain and vaginal discharge. Skin: Negative for rash. Neurological: Negative for headaches. Objective Physical Exam Constitutional: Appearance: Normal appearance. HENT: Nose: Nose normal. Eyes: Conjunctiva/sclera: Conjunctivae normal. Pupils: Pupils are equal, round, and reactive to light. Cardiovascular: Rate and Rhythm: Normal rate and regular rhythm. Heart sounds: No murmur heard. Pulmonary: Effort: Pulmonary effort is normal. Breath sounds: Normal breath sounds. Abdominal: General: Abdomen is flat. Palpations: Abdomen is soft. Tenderness: There is abdominal tenderness (mild suprapubic). There is no right CVA tenderness, leftCVA tenderness, guarding or rebound. Musculoskeletal: General: Normal range of motion. Cervical back: No tenderness. Skin: Findings: No rash. Neurological: Mental Status: She is alert. Gait: Gait is intact. Psychiatric: Mood and Affect: Mood normal. Behavior: Behavior normal. Procedures Assessment/Plan Diagnoses and all orders for this visit: UTI symptoms U/a: + nitrite, + blood, tr leuk. C&S pending. Prescribed cefuroxime. Return to clinic if not improving - POCT Urinalysis documented in this encounter Plan of Treatment Upcoming Encounters Date Type Department Care Team (Late st Contact Info) Description 08/06/2025 10:30 AM EST Medication Management [facility] [address] [place] [address] Lev Smith PharmD [address] [place] [address] Scheduled Orders Name Type Priority Associated Diagnoses Orde r Schedule Urine Culture Routine Microbiology Routine UTI symptoms Ordered: 07/07/2025 documented as of this encounter Goals Goal [...] Plan Weekly blood pressure task No Joanne Jmienez MA Patient has chronic kidney disease Care Plan Patient has chronic kidney disease No Joanne Jimenez MA Patient has chronic kidney disease Care Plan Patient has chronic kidney disease No Joanne Jimenez MA Weekly blood pressure task Care Plan Weekly blood pressure task No Elena Arzola, PharmFrancisco Weekly blood pressure task Care Plan Weekly blood pressure task No Elena Arzola PharmFrancisco Patient has chronic kidney disease Care Plan Patient has chronic kidney disease No Elena Arzola, PharmD Patient has chronic kidney disease Care Plan Patient has chronic kidney disease No Elena Arzola, PharmFrancisco Weekly blood pressure task Care Plan Weekly blood pressure task No Germania Wilson MA Weekly blood pressure task Care Plan Weekly blood pressure task No Steve Germania, MA Patient has chronic kidney disease Care Plan Patient has chronic kidney disease Germania Menjivar MA Patient has chronic kidney disease Care Plan Patient has chronic kidney disease Germania Menjivar MA documented as of this encounter Procedures Procedure Name Priority Date/Time Associated Diagnosis Comments POCT URINALYSIS DIPSTICK Routine 07/07/2025 10:42 AM EST UTI symptoms documented in this encounter Results * (ABNORMAL) POCT Urinalysis (07/07/2025 10:42 AM EST) Color, UA Yellow Clarity, UA Clear Glucose, UA Trace Comment:100 mg/dL Bilirubin, UA Negative Ketones, UA Negative Spec Grav, UA 1.015 Blood, UA Positive(A) Negative, None Detected Comment:small pH, UA 6.5 Protein, UA Trace Comment:30 mg/dL Urobilinogen, UA 0.2 Leukocytes, UA Trace Negative, Rare, Trace, 1+ (17), 2+ (35), 3+ (70), Trace (15) Comment:Large Nitrite, UA Positive(A) Negative, None Detected QC Media Lot # [id number] Lot# Expiration Date Urine (Urine, Random) 07/07/2025 10:42 AM EST Zen Parsons MD POINT OF CARE TEST ENTER/EDIT OR DERABLES Final Result documented in this encounter Visit Diagnoses Diagnosis UTI symptoms documented in this encounter Additional Health Concerns [...] 06/08/2025 Patient has chronic kidney disease 06/08/2025 Weekly blood pressure task 07/07/2025 Weekly blood pressure task 07/07/2025 Patient has chronic kidney disease 07/07/2025 Patient has chronic kidney disease 07/07/2025 Assessment Noted Time PHQ-9 Depression Total Score: 0 03/11/20 25 10:50 AM EDT documented as of this encounter Care Teams Private Branch Exchange Operator Relationship Specialty Start Date End Date Kera Maria MD [address] [place] [address] PCP - General Family Medicine 07/22/18 Lev Smith, HermilaD [address] [place] [address] Pharmacist Internal Medicine 11/12/24 documented as of this encounter
--- OUTSIDE RECORDS SUMMARY | 2025-07-07 21:00 | XMS_ITS | Encounter Summary ---
Author Organization [facility] Address [address] [place] [address] [address] [place] [address] Care Team Providers Care Occupational Health Specialist Name Role Phone Kera Maria MD Primary Care Provider [phone] Lev Smith PharmD Unavailable [phone] Encounter Details Date Type Department Care Team (Late Contact Info) Description 08/09/2022 Abstract [facility] MED[facility]INE [address] [place] [address] [phone] Kera Maria MD [address] [place] [phone] Social History Tobacco Use Types Packs/Day Years [...] Department Care Team (Late Contact Info) Description 08/06/2025 10:30 AM EST Medication Management [facility] [address] [place] [phone] Lev Smith, PharmD [address] [place] [address] documented as of this encounter Visit Diagnoses Not on filedocumented in this encounter Care Teams Occupational Health Specialist Relationship Specialty Start Date End Date Kera Maria MD [address] [place] [address] [phone] PCP - General Family Medicine 07/22/18 Lev Smith, PharmD [address] [place] [phone] Pharmacist Internal Medicine 11/12/24 documented as of this encounter
--- OUTSIDE RECORDS SUMMARY | 2025-07-07 21:00 | XMS_ITS | Encounter Summary ---
Author Organization [employer] Address [address] [place] [address] 7t [place] [address] Care Team Providers Care Materials Engineer Name Role Phone Kera Maria MD Primary Care Provider [phone] Lev Smith PharmD Unavailable [phone] Encounter Details Date Type Department Care Team (Late st Contact Info) Description 03/11/2023 Orders Only [facility] PEDS [address] [place], [place] [phone] Elena Unger LPN Social History Tobacco Use [...] Description 08/06/2025 10:30 AM EST Medication Management [facility] MED[facility]INE [address] [place] [address] Lev Smith, PharmD [address] [place] [address] documented as of this encounter Visit Diagnoses Not on filedocumented in this encounter Care Teams Materials Engineer Relationship Specialty Start Date End Date Kera Maria MD [address] [place] [address] PCP - General Family Medicine 07/22/18 Lev Smith PharmD [address] [place] [phone] Pharmacist Internal Medicine 11/12/24 documented as of this encounter
--- OUTSIDE RECORDS SUMMARY | 2025-07-07 21:00 | XMS_ITS | Encounter Summary ---
Author Organization [facility] Address [address] [place] [address] 7t [place] [address] Care Team Providers Care Electroplater Helper Name Role Phone Kera Maria MD Primary Care Provider [phone] Lev Smith PharmD Unavailable [phone] Encounter Details Date Type Department Care Team (Late st Contact Info) Description 01/11/2023 Orders Only [facility] MEDICINE [address] [place] [phone] Juhi Onofre LPN Social History Tobacco Use [...] Description 08/06/2025 10:30 AM EST Medication Management [facility] [address] [place] [address] Lev Smith, PharmD [address] [place] [address] documented as of this encounter Visit Diagnoses Not on filedocumented in this encounter Care Teams Electroplater Helper Relationship Specialty Start Date End Date Kera Maria MD [address] [place] [phone] PCP - General Family Medicine 07/22/18 Lev Smith, PharmD [address] [place] [address] Pharmacist Internal Medicine 11/12/24 documented as of this encounter
--- OUTSIDE RECORDS SUMMARY | 2025-07-07 21:00 | XMS_ITS | Encounter Summary ---
Author Organization [employer] [facility] Address [address] [facility] 7t [place] [address] Care Team Providers Care Screen Cutter And Trimmer Name Role Phone Kera Maria MD Primary Care Provider Lev Smith PharmD Unavailable [phone] Encounter Details Date Type Department Care Team (Late Contact Info) Description 08/09/2022 Abstract [facility] MEDICINE [address] [place] [address] [phone] Kera Maria MD [address] [place] [address] [phone] Social History Tobacco Use Types Packs/Day Years [...] Description 08/06/2025 10:30 AM EST Medication Management [facility] [address] [place] [address] [phone] Lev Smith, PharmD [address] [place], [place] [phone] documented as of this encounter Procedures Procedure Name Priority Date/Time Associated Diagnosis Comments MAMMOGRAPHY Routine 08/06/2022 documented in this encounter Results * Mammography (08/06/2022) Mammogram perform Anatomical Region Laterality Modality Other us Historical Provider HEALTH MAINTENANCE Final Result documented in this encounter Visit Diagnoses Not on filedocumented in this encounter Care Teams Screen Cutter And Trimmer Relationship Specialty Start Date End Date Kera Maria MD [address] [place] [address] PCP - General Family Medicine 07/22/18 Lev Smith, HermilaD [address] [place] [address] Pharmacist Internal Medicine 11/12/24 documented as of this encounter
--- OUTSIDE RECORDS SUMMARY | 2025-07-07 21:00 | XMS_ITS | Encounter Summary ---
Author Organization [employer] Address [address] [facility] [address]t [place] [address] Care Team Providers Care Is Technician Name Role Phone Kera Maria MD Primary Care Provider [phone] Lev Smith PharmD Unavailable [phone] Reason for Referral * Consultation (Routine) - Canceled Specialty Diagnoses / Procedures Referred By Contac t Referred To Contact Pharmacy Diagnoses Type 2 diabetes mellitus with hyperglycemia, with long-term current use of insulin (HCC) Essential hypertension Kera Maria MD [address] [place] [phone] Phone: tel: fax: Referral ID Status Reason Start Date Expiration Date V isits Requested Visits Authorized [id number] Canceled Consult and Treat 10/16/2024 10/16/2025 6 6 Encounter Details Date Type Department Care Team (Late st Contact Info) Description 10/16/2024 Orders Only [facility] [address] [place] [address] [phone] Kera Maria MD [address] [place], [place] [phone] Type 2 diabetes mellitus with hyperglycemia, with [...] Description 08/06/2025 10:30 AM EST Medication Management [facility] [address] [place] [address] Lev Smith, PharmD [address] [place] [address] Scheduled Referrals Name Type Priority Associated Diagnoses Orde r Schedule Referral to Pharmacy CDTM Outpatient Referral Routine Type 2 diabetes mellitus with hyperglycemia, with long-term current use of insulin ([facility]) Essential hypertension Ordered: 10/16/2024 documented as of this encounter Visit Diagnoses Diagnosis Type 2 diabetes mellitus with hyperglycemia, with long-term current use of insulin ([facility])- Primary Essential hypertension Unspecified essential hypertension Dyslipidemia Other and unspecified hyperlipidemia documented in this encounter Care Teams Is Technician Relationship Specialty Start Date End Date Kera Maria MD [address] [place] [address] PCP - General Family Medicine 07/22/18 Lev Smith, HermilaD [address] [place] [phone] Pharmacist Internal Medicine 11/12/24 documented as of this encounter
--- OUTSIDE RECORDS SUMMARY | 2025-07-07 21:00 | XMS_ITS | Encounter Summary ---
Author Organization [employer] Address [address] [facility] [address]t [place] [address] Care Team Providers Care Ship Self Defense System Mk1 Operator Name Role Phone Kera Maria MD Primary Care Provider [phone] Lev Smith PharmD Unavailable [phone] Encounter Details Date Type Department Care Team (Late st Contact Info) Description 09/14/2024 Orders Only [facility] [address] [place], [place] [phone] ProviderChey MD Social History Tobacco Use Types [...] 10:30 AM EST Medication Management [facility] [address] [place] [address] Lev Smith, Steven [address] [place] [address] documented as of this encounter Procedures Procedure Name Priority Date/Time Associated Diagnosis Comments HM COLONOSCOPY Routine 09/10/2024 1:05 PM EST documented in this encounter Results * Hm Colonoscopy (09/10/2024 1:05 PM EST) Historical Provider HEALTH MAINTENANCE Final Result documented in this encounter Visit Diagnoses Not on filedocumented in this encounter Care Teams Ship Self Defense System Mk1 Operator Relationship Specialty Start Date End Date Kera Maria MD [address] [place] [phone] PCP - General Family Medicine 07/22/18 Lev Smith, HermilaD [address] [place] [phone] Pharmacist Internal Medicine 11/12/24 documented as of this encounter
--- OUTSIDE RECORDS SUMMARY | 2025-07-07 21:00 | XMS_ITS | Encounter Summary ---
Author Organization [employer] Address [address] [facility] [address] [place] [address] Care Team Providers Care Business Office Assistant Name Role Phone Kera Maria MD Primary Care Provider [phone] Lev Smith PharmD Unavailable [phone] Reason for Referral * Consultation (Urgent) - Pending Review Specialty Diagnoses / Procedures Referred By Contac t Referred To Contact Pharmacy Diagnoses Type 2 diabetes mellitus with hyperglycemia, with long-term current use of insulin (HCC) Essential hypertension Kera Maria MD [address] [place] [address] Phone: tel: fax: Referral ID Status Reason Start Date Expiration Date Visits Requested Visits Authorized [id number] Pending Review Consult and Treat 10/19/2024 10/19/2025 6 6 Encounter Details Date Type Department Care Team (Late st Contact Info) Description 10/19/2024 Orders Only [facility] [address] [place] [id number] [phone] Kera Maria MD [address] [place] [address] [phone] Type 2 diabetes mellitus with hyperglycemia, with [...] Medication Management [facility] [address] [place] [address] Lev Smith, PharmD [address] [place] [address] Scheduled Referrals Name Type Priority Associated Diagnoses Orde r Schedule Referral to Pharmacy CDTM Outpatient Referral Urgent Type 2 diabetes mellitus with hyperglycemia, with long-term current use of insulin ([facility]) Essential hypertension Ordered: 10/19/2024 documented as of this encounter Visit Diagnoses Diagnosis Type 2 diabetes mellitus with hyperglycemia, with long-term current use of insulin ([facility])- Primary Essential hypertension Unspecified essential hypertension documented in this encounter Care Teams Business Office Assistant Relationship Specialty Start Date End Date Kera Maria MD [address] [place] [address] PCP - General Family Medicine 07/22/18 Lev Smith, PharmD [address] [place] [id number] Pharmacist Internal Medicine 11/12/24 documented as of this encounter
--- OUTSIDE RECORDS SUMMARY | 2025-07-07 21:00 | XMS_ITS | Encounter Summary ---
Author Organization [employer] Address [address] [place] [address] [address] [place] [address] Care Team Providers Care Arranging Funeral Director Name Role Phone Kera Maria MD Primary Care Provider [phone] Lev Smith PharmD Unavailable [phone] Encounter Details Date Type Department Care Team (Late st Contact Info) Description 10/15/2022 Orders Only [facility] [address] [place], [place] [phone] Elena Unger LPN Social History Tobacco Use [...] Description 08/06/2025 10:30 AM EST Medication Management [facility] [address] [place] [address] Lev Smith, PharmD [address] [place] [address] documented as of this encounter Visit Diagnoses Not on filedocumented in this encounter Care Teams Arranging Funeral Director Relationship Specialty Start Date End Date Kera Maria MD [address] [place] [address] PCP - General Family Medicine 07/22/18 Lev Smith PharmD [address] [place] [address] Pharmacist Internal Medicine 11/12/24 documented as of this encounter
--- OUTSIDE RECORDS SUMMARY | 2025-07-07 21:00 | XMS_ITS | Clinical Summary ---
Demographics Address [address] [facility] [facility] [place] [address] Mobile Phone Home Phone Preferred Language es Marital Status Unknown Latter-Day Affiliation Unknown Race Unknown Ethnic Group Unknown Author Organization [facility] Address [address] [place] [address] [place] [address] Phone Care Team Providers Care Repair Weaver Name Role Phone Kera Maria MD Primary Care Provider [phone] Allergies No known active allergies Medications aspirin [...] 05/27/2017, 05/21/2016, 04/19/2013, Additional history exists Insurance TEAM INTERVAL/L-3 [employer] ([id number]) TEAM INTERVAL/L-3 [employer] ([id number]) Care Teams Repair Weaver Relationship Specialty Start Date End Date Kera Maria MD PCP - General 08/01/20
--- OUTSIDE RECORDS SUMMARY | 2025-07-07 21:00 | XMS_ITS | Clinical Summary ---
Author Organization [employer] Address [address] [place] [address] Care Team Providers Care Salicylic Acid Blender Name Role Phone Kera Maria MD Primary Care Provider [phone] Lev Smith PharmD Unavailable [phone] Allergies Active Allergy Reactions Criticality Noted Date [...] AT BEDTIME 90 tablet 3 024 Active Continuous Glucose Environmental Programs Specialist (FreeStyle La 2 [place]) deviceIndication s:Type 2 diabetes mellitus with hyperglycemia, with long-term current use of insulin ([facility]) Scan sensor every 8 hours 1 each 1 025 Active glucose blood (FreeStyle Precision Adeel Test) test strip Use to test blood sugar 3 times daily 100 each 12 025 2025 Active UltiCare Short Pen Erwin 31G X 8 MM miscIndications: Type 2 diabetes mellitus with hyperglycemia (HCC) Use as instructed 100 each Active Aspirin Low Dose 81 MG EC tablet TAKE 1 TABLET BY MOUTH EVERY MORNING 30 tablet Active cholecalciferol (Vitamin D-3) 25 MCG tablet [...] 40 capsule Active pioglitazone (Actos) 15 MG tabletIndication s:Type 2 diabetes mellitus with hyperglycemia, with long-term current use of insulin (HCC) Take 1 tablet (15 mg) by mouth Once per day. 30 tablet 2025 Active Lancet Devices (Lancing Device) miscIndications: Type 2 diabetes mellitus with other specified complication, unspecified whether half-way insulin use (HCC) Use as directed 1 each Active Lancets 33G miscIndications: Type 2 diabetes mellitus with other specified complication, unspecified whether business employment specialist insulin use (HCC) Use to check BG up to 3 times daily as needed for hypoglycemia or sensor failure 100 each Active loratadine (Claritin) 10 MG tablet Active insulin glargine (Lantus SoloStar) 100 UNIT/ML pen INJECT 14 UNITS SUBCUTANEOUSLY EVERY EVENING DIRECTED 15 mL Active fluticasone (Flonase) 50 MCG/ACT nasal sprayIndications :Allergic rhinitis, unspecified seasonality, unspecified trigger USE 1 SPRAY IN EACH NOSTRIL ONCE DAILY 16 g 1 Active Alcohol Swabs (Alcohol Prep) 70 % padsIndications: Type 2 diabetes mellitus with hyperglycemia ([facility]) USE DIRECTED WITH INSULIN 100 each 11 Active famotidine (Pepcid) 20 MG tablet Take 20 mg by mouth at bedtime. Active omeprazole (PriLOSEC) [address] capsule Take 20 mg by mouth in the morning. Active Continuous Glucose Sensor (FreeStyle La 2 Plus Sensor) miscIndications: Type 2 diabetes mellitus with hyperglycemia, with long-term current use of insulin ([facility]) 1 Device every 15 days. Apply 1 sensor as directed every 15 days for CGM 2 each 11 Active amLODIPine (Norvasc) 10 MG tablet TAKE 1 TABLET BY MOUTH EVERY MORNING 90 tablet 3 Active losartan (Cozaar) 50 MG tablet TAKE 1 TABLET BY MOUTH AT BEDTIME 90 tablet 3 Active ezetimibe (Zetia) 10 MG tabletIndication s:Mixed hyperlipidemia TAKE 1 TABLET BY MOUTH AT BEDTIME 90 tablet 3 Active Trulicity 1.5 MG/0.5ML solution auto-injectorInd ications:Type 2 diabetes mellitus with hyperglycemia, with long-term current use of insulin ([facility]) INJECT ONE PEN (=1.5MG) SUBCUTANEOUSLY ONCE A WEEK DIRECTED 2 mL 11 06/24/20 25 6:07 PM EST Active rosuvastatin (Crestor) 40 MG tablet Take 1 tablet (40 mg) by mouth at bedtime. 90 tablet 1 06/24/20 25 6:07 PM EST Active traZODone (Desyrel) 50 MG tabletIndication s:Depression, unspecified depression type Take 1 tablet (50 mg) by mouth at bedtime. 90 tablet 1 06/24/20 25 6:07 PM EST 025 Active clotrimazole (Lotrimin) 1 % cream Apply topically 2 times daily. 60 g 2 06/24/20 25 6:07 PM EST 025 Active polyethylene glycol, PEG, 3350 (Miralax) 17 g packet Use 17 grams once daily as needed for constipation, dissolved in 4-8 ounces of liquid, 30 packet 2 06/24/20 25 6:07 PM EST Active alendronate (Fosamax) 70 MG tablet take 1 tablet by mouth once a week with 6 to 8 oz of water 30 min before first food of day. do not lie down for 30 minutes, TAKE ON AN EMPTY STOMACH 12 tablet 3 Active cefuroxime (Ceftin) 250 MG tablet Take 1 tablet (250 mg) by mouth 2 times daily for 7 days. 14 tablet 025 2024 Active alendronate (Fosamax) 70 MG tablet Take 1 tablet (70 mg) by mouth every 7 (seven) days. Take in the morning with a full glass of water, on an empty stomach, and do not take anything else by mouth or lie down for the next 30 min. 12 tablet 3 024 2024 Discontinued rosuvastatin (Crestor) [...] Active Problems Problem Noted Date Diagnosed Date Constipation 06/13/2025 Assessment & Plan (06/13/2025 12:25 PM EST): - Multifactorial: Medications (especially GLP-1 RA); diet - Will prescribe osmotic laxative Osteopenia 09/07/2024 Assessment & Plan (12/15/2024 5:28 [...] (obstructive sleep apnea) 06/20/2023 Assessment & Plan (06/13/2025 12:29 PM EST): -Sleep study on 10/28/18 confirmed BART -Followed by sleep clinic since 05/2019, last seen on 10/17/21, BiPAP setting was adjusted -Continue BiPAP IPAP 9 cmH2O and EPAP 5 cmH2O -?Tx for PLMS Assessment & Plan (03/21/2025 7:32 PM EDT): [...] (03/21/2025 7:27 PM EDT): - following with [facility] - last US in November 2021 - FIB 4 index 2.13 - Consider updating US, if it is not done by GI yet Assessment & Plan (09/08/2024 10:24 AM EST): - following with [facility] - last US in November 2021 Assessment & Plan (05/29/2024 3:20 PM EST): - following with [facility] - last US in November 2021 Assessment & Plan (06/20/2023 5:47 AM EST): - following with [facility] - last US in November 2021 Restrictive airway disease 06/20/2023 Assessment & Plan (05/29/2024 3:18 PM EST): - evaluated by marine engineering technicians - last PFT in December 2022, no obstructive airway disease / RAD - breathing exercise Assessment & Plan (06/20/2023 6:01 AM EST): - evaluated by marine engineering technicians - last PFT in December 2022, no obstructive airway disease / RAD - breathing exercise Proteinuria 10/28/2020 Chronic interstitial cystitis 11/25/2017 Assessment & Plan (05/29/2024 3:22 PM EST): Seen by [facility] urology provider on 02/08/22 for f/u recurrent UTI and IC. Pt currently on Elmiron and nitrofurantoin per note. Assessment & Plan (06/20/2023 5:26 AM EST): Seen by [facility] urology provider on 02/08/22 for f/u recurrent UTI and IC. Pt currently on Elmiron and nitrofurantoin per note. Dyslipidemia 08/29/2017 06/12/2023 Assessment & Plan (06/13/2025 12:22 PM EST): -Last lipid profile: 12/15/2024 -Medication: Rosuvastatin 40 mg qhs; ezetimibe 10 mg daily -Previously on fenofibrate 160 [...] minimize her ASCVD risk. Assessment & Plan (03/21/2025 7:19 PM EDT): [...] (03/21/2025 7:19 PM EDT): - following with [facility], last seen in September 2024 - last venous study in Apr 2024, Hx right GSV ablation. Left GSV, SSV, and right CFV were competent. - continue leg elevation, compression stocking, and low-sodium diet Ischemic heart disease 01/25/2016 Assessment & Plan (06/13/2025 12:22 PM EST): - CABG in 2005 - Following with [facility], last note from September 2024 - Transferring to [facility]iology because HFA office has moved, upcoming appt - Stress test and myocardial perfusion imaging in Jun 2022, no ischemia - continue secondary preventative measures. - Assessment & Plan (03/21/2025 7:16 PM EDT): - CABG in 2005 - Following with [facility], last note from September 2024 - Stress test and myocardial perfusion imaging in Jun 2022, no ischemia - continue secondary preventative measures. - patient requests a referral to [facility] cardiology Assessment & Plan (09/08/2024 10:23 AM EST): - CABG in 2005 - Following with [facility], last note from Aug 2022 - Stress test and myocardial perfusion imaging in Jun 2022, no ischemia - continue secondary preventative measures. Assessment & Plan (05/29/2024 3:19 PM EST): - CABG in 2005 - Following with [facility], last note from Aug 2022 - Stress test and myocardial perfusion imaging in Jun 2022, no ischemia - continue secondary preventative measures. Assessment & Plan (06/20/2023 6:00 AM EST): - CABG in 2005 - Following with [facility], last note from Aug 2022 - Stress test and myocardial perfusion imaging in Jun 2022, no ischemia - continue secondary preventative measures. Gastroesophageal reflux disease 10/12/2015 06/12/2023 Assessment & Plan (03/21/2025 7:28 PM EDT): - Following with [facility], last seen in February 2025 - Prescribed omeprazole 20 mg daily and famotidine 20 mg nightly Mixed stress and urge urinary incontinence 10/1106/12/2023 Assessment & Plan (03/12/2025 12:43 AM EDT): -following with urology Assessment & Plan (09/11/2024 2:28 PM EST): -following with urology Atherosclerosis of [place] ronary artery of [place] heart without angina pectoris 04/25/2015 06/12/2023 Insomnia 04/25/2015 06/12/2023 Overweight 04/25/2015 06/12/2023 Essential hypertension 04/25/2015 Assessment & Plan (06/13/2025 12:21 PM EST): -Goal BP NC-8 and < 130/80 per ACC/AHA guideline -Co-managed with house steward/stewardess, sap hana architect, and pharmacist -Slightly elevated BP, possibly due to her pain and current condition -Continue working on lifestyle modifications -Recommended self-monitoring BP. -Continue working on lifestyle modifications. -Continue current medications: amlodipine 10 mg daily; losartan 50 mg daily -Treatment Hx: metoprolol - discontinued due to dizziness Assessment & Plan (03/12/2025 12:40 AM EDT): -Goal BP < 140/90 per JNC-8 and < 130/80 per ACC/AHA guideline -Co-managed with house steward/stewardess, sap hana architect, and pharmacist -Slightly elevated BP, possibly due [...] < 130/80 per ACC/AHA guideline -Co-managed with house steward/stewardess, sap hana architect, and pharmacist -Slightly elevated BP, possibly due [...] < 130/80 per ACC/AHA guideline -Co-managed with house steward/stewardess and sap hana architect -Slightly elevated BP, possibly due to her [...] < 130/80 per ACC/AHA guideline -Co-managed with house steward/stewardess and sap hana architect -Slightly elevated BP, possibly due to her [...] < 130/80 per ACC/AHA guideline -Co-managed with house steward/stewardess and sap hana architect -Slightly elevated BP, possibly due to her pain and current condition -Continue working on lifestyle modifications -Recommended self-monitoring BP. -Continue working on lifestyle modifications. -Continue current medications: amlodipine 10 mg daily; losartan 50 mg daily -Treatment Hx: metoprolol - discontinued due to dizziness Type 2 diabetes mellitus 01/05/2013 023 Assessment & Plan (06/13/2025 12:23 PM EST): - A1C 7.3% on 03/11/25, improved from [...] declines. Aspirin use: Prescribed. Assessment & Plan (03/21/2025 7:22 PM EDT): [...] Aspirin use: Prescribed. Allergic rhinitis 04/22/2012 06/12/2023 Assessment & Plan (06/13/2025 12:31 PM EST): - continue loratadine, montelukast, nasal azelastine, and nasal steroid Recurrent urinary tract infection 04/22/2012 06/12/2023 Assessment & Plan (03/12/2025 12:43 AM EDT): - following with [facility], last seen in May 2023 - last UTI in Feb 2024, breakthrough (on nitrofurantoin prophylaxis). - urine culture in Feb 2024 grew Klebsiella. Treated with TMP/SMX. - relative contraindication to SGLT2i Assessment & Plan (09/11/2024 2:28 PM EST): - following with [facility], last seen in May 2023 - last UTI in Feb 2024, breakthrough (on nitrofurantoin prophylaxis). - urine culture in Feb 2024 grew Klebsiella. Treated with TMP/SMX. - relative contraindication to SGLT2i Assessment & Plan (05/24/2024 6:20 AM EST): - following with [facility], last seen in May 2023 - [...] Plan (06/20/2023 5:25 AM EST): Seen by [facility] urology provider on 02/08/22 for f/u recurrent UTI and IC. Pt currently on Elmiron and nitrofurantoin. -Last UTI DECEMBER 2021. -Cont Elmiron and nitrofurantoin. 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/16/2005 06/12/2023 Resolved Problems Problem Noted Date Diagnosed Date Resolved Date Disorder of vein 06/26/2018 06/12/2023 06/20/2023 Encounters Date Type Department Care Team Description 07/07/2025 10:20 AM EST Office Visit [facility] [address] [place] [address] Zen Parsons MD UTI symptoms 07/07/2025 Travel 07/02/[address] [facility] [address] [place] [address] Kera Maria MD 06/08/2025 11:30 AM EST Office Visit [address] [address] Kera Maria MD Essential hypertension (Primary Dx); Type 2 diabetes mellitus with hyperglycemia, with long-term current use of insulin (HCC); Encounter for immunization; Ischemic heart disease; Dyslipidemia; Other constipation; BART (obstructive sleep apnea); Allergic rhinitis, unspecified seasonality, unspecified trigger; Candidiasis of perineum 06/08/2025 Travel 06/08/[address] [facility] [address] [place] [address] Kera Maria MD Depression, unspecified depression type 06/07/[address] [facility] [address] [place] [address] Kera Maria MD chart prep 06/04/[address] [facility] [address] [place] [address] Kera Maria MD Type 2 diabetes mellitus with hyperglycemia, with long-term current use of insulin (HCC) 05/13/[address] [facility] [address] [place] [address] Kera Maria MD Mixed hyperlipidemia 05/07/2025 Travel 04/27/2025 Orders Only [facility] External Provider, [facility] 04/16/2025 11:00 AM EDT Clinical Support [facility] [address] [place] [address] Anna Santos RN Memory changes 04/16/2025 Travel 04/16/[address] [facility] [address] [place] [address] Kera Maria MD Type 2 diabetes mellitus with hyperglycemia ([facility]) 04/13/[address] [facility] [address] [place] [address] Kera Maria MD Allergic rhinitis, unspecified seasonality, unspecified trigger from Last 3 Months Immunizations Immunization Administration Dates Next Due Hep A, Adult 11/26/2024,05/25/2024 Hep B, adult 03/08/2017,02/25/2015,01/21/2014 Influenza High-dose Quadriva lent Preservative Free 06/20/2023,04/04/2022 Influenza Quadrivalent Adjuvanted 08/03/2020 Influenza injectable quadriv alent IIV4 with preservative 05/21/2016 Influenza injectable quadriv alent preservative free 06/06/2021,06/26/2018,05/27/2017,04/25 Influenza, High Dose Seasona l, Preservative Free 06/08/2025,05/25/2024,09/10/2019 Influenza, IIV3, injectable 04/29/2014,0 04/19/2010,04/05/2009,04/29 Influenza, Split [...] Mass Index 29.18 07/07/2025 10:30 AM EST Plan of Treatment Upcoming Encounters Date Type Department Care Team (Late st Contact Info) Description 08/06/2025 10:30 AM EST Medication Management [facility] [address] [place] [address] Lev Smith, PharmD [address] [place] [address] Health Maintenance Due Date Last Done Comments CT Colonography 1950 FIT DNA/Cologuard 1950 FIT 1950 FOBT 1950 Sigmoidoscopy 1950 RSV Patients and Patients Aged 60 years or older (1 - Risk 50-74 years 1-dose series) 2001 COVID-19 Vaccine ( season) 2025 08/23/2021, 10/21/2020, 09/23/2020 Diabetes: Hemoglobin A1C 09/08/2025 025, 03/11/2025, 12/15/2024, Additional history exists Mammogram 11/28/2025 11/29/2023, 07/22, 08/06/2022, Additional history exists Diabetes: Foot Exam 12/15/2025 12/15/2024, 12/15/2024, 12/15/2024, Additional history exists Diabetes: Urine Protein Screening 12/15/2025 12/15/2024, 06/20/2023, 05/29/2021 Lipid Panel 12/15/2025 12/15/2024, 0501/2025, 06/20/2023, Additional history exists Depression Screening 03/11/2026 03/11/2025, 03/11/20 SDOH Screening 03/11/2026 03/11/2025 Alcohol/Substance Use Screening 06/08/2026 06/08/2025 Tobacco Screening 07/07/2026 07/07/2025 Eye Exam 01/06/2027 01/06/2025, 01/06/2024 Colonoscopy 09/10/2029 09/10/2024, 04/01/2018 Colorectal Cancer Screening 09/10/2029 DTaP/Tdap/Td Vaccines (3 - Td or Tdap) 02/16/2031 02/16/2021, 04/22/2012, 04/07/2008 Hepatitis B Vaccines Completed 03/08/2017, 02/25/2015, 01/21/2014 Pneumococcal Vaccine: 50+ Years Completed 05/27/2017, 05/21/2016, 04/19/2013, Additional history exists Zoster Vaccines Completed 01/29/2020, 08/23, 02/25/2015 Hepatitis A Vaccines Completed 11/26/2024, 05/25/20 24 Influenza Vaccine Completed 06/08/2025, , 06/20/2023, Additional history exists HIB Vaccines Aged Out [...] Weekly blood pressure task Joanne Hernandez MA Patient has chronic kidney disease Care Plan Patient has chronic kidney disease Joanne Hernandez MA Weekly blood pressure task [...] chronic kidney disease No Elena Arzola PharmD Weekly blood pressure task Care Plan Weekly blood pressure task No Germania Wilson MA Weekly blood pressure task Care Plan Weekly blood pressure task No Germania Wilson MA Patient has chronic kidney disease Care Plan Patient has chronic kidney disease No Germania Wilson MA Patient has chronic kidney disease Care Plan Patient has chronic kidney disease No Germania Wilson MA Procedures Procedure Name Priority Date/Time Associated Diagnosis Comments POCT URINALYSIS DIPSTICK Routine 07/07/2025 10:42 AM EST UTI symptoms POCT GLYCOSYLATED HEMOGLOBIN (HGB A1C) Routine 06/08/2025 11:42 AM EST Type 2 diabetes mellitus with hyperglycemia, with long-term current use of insulin (HCC) POCT GLUCOSE Routine 06/08/2025 11:42 AM EST Type 2 diabetes mellitus with hyperglycemia, with long-term current use of insulin (HCC) US ABDOMEN COMPLETE WITH ELASTOGRAPHY Routine 04/27/2025 10:02 AM EDT DIABETES EYE EXAM Routine 01/06/2025 9:58 AM EDT ALBUMIN, RANDOM URINE W/CREATININE Routine 12/15/2024 10:58 AM EDT LIPID PANEL WITH REFLEX TO DIRECT LDL Routine 12/15/2024 10:58 AM EDT Dyslipidemia COLONOSCOPY Routine 09/10/2024 1:05 PM EST BI MAMMOGRAM SCREENING TOMOSYNTHESIS BILATERAL Routine 11/29/2023 10:25 AM EDT from Last 3 Months or Most Recently Relevant to Health Maintenance Results * (ABNORMAL) POCT Urinalysis (07/07/2025 10:42 [...] Urine (Urine, Random) 07/07/2025 10:42 AM EST us Zen Parsons MD POINT OF CARE TEST ENTER/EDIT OR DERABLES Final Result * (ABNORMAL) POCT glycosylated hemoglobin (Hgb A1c) (06/08/2025 11:42 AM EST) Hemoglobin A1C 7.3(A) 4.0 - 5.7 % QC Media Lot # [id number] Lot# Expiration Date Blood Capillary blood specimen / Unknown 06/08/2025 11:42 AM EST Kera Maria MD POINT OF CARE TEST ENTER/EDIT OR DERABLES Final Result * (ABNORMAL) POCT glucose manually resulted (06/08/2025 11:42 AM EST) Glucose Blood, POC 224(A) 60 - 200 mg/dL QC Media Lot # [id number] Lot# Expiration Date Blood Capillary blood specimen / Unknown 06/08/2025 11:42 AM EST us Kera Maria MD POINT OF CARE TEST ENTER/EDIT OR DERABLES Final Result * US Abdomen Comp w elastography (04/27/2025 10:02 AM EDT) Anatomical Region Laterality Modality Abdomen Ultrasound 04/27/2025 10:0 2 AM EDT Narrative 04/27/2025 12:17 PM EDT [address] [address] Ultrasound Report Signed Patient: Sofía Penny MR#: [id number] : 1950 Acct:[id number] Age/Sex: 74 / F ADM Date: 04/27/25 Loc: HO.US Attending Dr: Mallika CASILLAS Ordering Physician: Mallika Eng Date of Service: 04/27/25 Procedure(s): US abdomen comp w elastography Accession Number(s): [id number] cc: Mallika Eng; Kera Maria MD Reason for Exam: K75.81 - Nonalcoholic steatohepatitis ([place]) EXAMINATION: US COMPLETE ABDOMEN WITH LIVER ELASTOGRAPHY CLINICAL INFORMATION: [place] COMPARISON: Abdominal ultrasound November 2021 TECHNIQUE: Real-time imaging of the abdominal viscera. Noninvasive ultrasound liver fibrosis assessment is performed using [email or web address] ElastPQ point quantification shear wave elastography (pSWE) [...] 04/27/25 1214 DD/ 1002 TD/TT: 04/27/25 1033 Autocad Designer: ELMO Procedure Note Donotuseinterpreter, Image - 04/27/[address] [address] Ultrasound Report Signed Patient: Kaylee Penny#: [id number] : 1950cct:[id number] Age/Sex: 74 / FADM Date: 04/27/25 Loc: HO.US Attending Dr: Mallika CASILLAS Ordering Physician: Mallika Eng Date of Service: 04/27/25 Procedure(s): US abdomen comp w elastography Accession Number(s): [id number] cc: Mallika Eng; Kera Maria MD Reason [...] 04/27/25 1214 DD/ 1002 TD/TT: 04/27/25 1033 Autocad Designer: ELMO [facility] External Provider IMG US PROCEDURES Final Result * Hm Diabetes Eye Exam (01/06/2025 9:58 AM EDT) Historical Provider HEALTH MAINTENANCE Final Result * Lipid Panel with Reflex to Direct LDL (12/15/2024 10:58 AM EDT) Triglycerides 138 <150 mg/dL [facility] Comment:Desirable Triglyceri de: less than 150 mg/dLBorderline High Triglyceride 150-199 mg/dLHigh Triglyceride: 200-499 mg/dLVery High Triglyceride: greater than or equal to 5OO mg/dL Cholesterol 116 <200 mg/dL [facility] Comment:Desirable Cholestero l: less than 200 mg/dLBorderline High Cholesterol: 200-239 mg/dLHigh Cholesterol: greater than 239 mg/dL LDL Cholesterol Calculated 43 <100 mg/dL [facility] Comment:Desirable LDL: less than 100 mg/dLNear Optimal/Above Optimal LDL: 110- 129 mg/dLBorderline High LDL: 130-159 mg/dLHigh LDL: 160-189 mg/dLVery High LDL: greater than or equal to 190 mg/dL HDL Cholesterol 46 >40 mg/dL [facility] Comment:Desirable HDL: great er than 40 mg/dL Note: This HDL assay may give artificially low results in patients with liver disease. Blood 12/15/2024 10:5 8 AM EDT 12/15/2024 1:21 PM EDT Kera Maria MD LAB BLOOD ORDERABLES Final Resul t [facility] [address] [place] [address] [phone] * (ABNORMAL) Albumin, Random Urine W/Creatinine (12/15/2024 10:58 AM EDT) Creatinine, Urine 16.18 mg/dL [facility] Microalbumin Urine 11.0 mg/L H [facility] Microalbum Creatinine Ratio Ur 67.9(H) <30 ug/mg cr [facility] Comment:Albumin/Creatinine R atio Reference Ranges: Normal: < 30 ug/mg creatinine Microalbuminuria: 30 - 300 ug/mg creatinineClinical Albuminuria: > 300 ug/mg creatinine 12/15/2024 10:5 8 AM EDT 12/15/2024 1:16 PM EDT Kera Maria MD LAB URINE ORDERABLES Final Resul t [facility] [address] [place] [address] [phone] * Hm Colonoscopy (09/10/2024 1:05 PM EST) Historical Provider HEALTH MAINTENANCE Final Result * BI Mammogram Screening Tomosynthesis Bilateral (11/29/2023 10:25 AM EDT) Anatomical Region Laterality Modality Breast Bilateral Mammography 11/29/2023 10:2 5 AM EDT Narrative 12/27/2023 9:22 AM EDT [address] [place] [address] Mammography Report Signed Patient: Sofía Penny MR#: [id number] : 1950 Acct:[id number] Age/Sex: 73 / F ADM Date: 11/29/23 Loc: NICKIE Attending Dr: Kera Maria MD Ordering Physician: Kera Maria MD Results: 1Negative Date of Service: 11/29/23 Follow Up: 1 Year From Orig ina Mammogram Procedure(s): MM tomosynthesis screening BI Accession Number(s): [id number] cc: Kera Maria MD EXAMINATION: MM SCREENING [...] in OV> 12/27/23 0918 DD/ 1025 TD/TT: Autocad Designer: Procedure Note Donotuseinterpreter, Image - 12/27/[facility] [address] [place], [place] [address] Mammography Report Signed Patient: Kaylee Penny#: [id number] : 1950cct:[id number] Age/Sex: 73 / FADM Date: 11/29/23 Loc: NICKIE Attending Dr: Kera Maria MD Ordering Physician: Kera Maria MDResults: 1Negative Date of Service: 11/29/23Follow Up: 1 Year From [facility] Mammogram Procedure(s): MM tomosynthesis screening BI Accession Number(s): [id number] cc: Kera Maria MD EXAMINATION: MM SCREENING [...] MD in OV> 12/27/2318 DD/ 1025 TD/TT: Autocad Designer: Kera Maria MD IMG BI PROCEDURES Edited [...] 07/07/2025 Patient has chronic kidney disease 07/07/2025 Insurance [employer] STANDARD ARCHIE REILLY O-SNP Care Teams Salicylic Acid Blender Relationship Specialty Start Date End Date Kera Maria MD [address] [place] [address] PCP - General Family Medicine 07/22/18 Lev Smith, PharmD [address] [place] [address] Pharmacist Internal Medicine 11/12/24
--- OUTSIDE RECORDS SUMMARY | 2025-07-07 21:00 | XMS_ITS | Encounter Summary ---
Author Organization [facility] Address [address] [place] [address] 7t [place] [address] Care Team Providers Care Appeals Reviewer Veteran Name Role Phone Kera Maria MD Primary Care Provider [phone] Lev Smith PharmD Unavailable [phone] Encounter Details Date Type Department Care Team (Late st Contact Info) Description 10/15/2022 Orders Only [facility] MEDICINE [address] [place] [address] Juhi Onofre LPN Social History Tobacco Use [...] 08/06/2025 10:30 AM EST Medication Management [facility] MEDICINE [address] [place] [address] Lev Smith, PharmD [address] [place] [address] documented as of this encounter Visit Diagnoses Not on filedocumented in this encounter Care Teams Appeals Reviewer Veteran Relationship Specialty Start Date End Date Kera Maria MD [address] [place] [address] PCP - General Family Medicine 07/22/18 Lev Smith, PharmD [address] [place] [address] Pharmacist Internal Medicine 11/12/24 documented as of this encounter
--- OUTSIDE RECORDS SUMMARY | 2025-07-07 21:01 | XMS_ITS | Encounter Summary ---
Author Organization [employer] Address [address] [facility] 7t [place] [address] Care Team Providers Care Ranch Hand Name Role Phone Kera Maria MD Primary Care Provider [phone] Lev Smith PharmD Unavailable [phone] Reason for Visit * Reason Comments Med Refill Encounter Details Date Type Department Care Team ([facility] st Contact Info) Description 07/04/2023 Refill [facility] CHC MED & PEDS [address] [place], [place] [phone] Kera Maria MD [address] [place], [place] [phone] Social History Tobacco Use Types Packs/Day Years [...] 08/06/2025 10:30 AM EST Medication Management [facility] MEDICINE [address] [place] [address] Lev Smith, PharmD [address] [place] [address] documented as of this encounter Visit Diagnoses Not on filedocumented in this encounter Care Teams Ranch Hand Relationship Specialty Start Date End Date Kera Maria MD [address] [place] [address] PCP - General Family Medicine 07/22/18 Lev Smith, PharmD [address] [place] [address] [phone] Pharmacist Internal Medicine 11/12/24 documented as of this encounter
--- OUTSIDE RECORDS SUMMARY | 2025-07-07 21:01 | XMS_ITS | Encounter Summary ---
Author Organization [employer] Address [address] [place] [address] 7 [place] [address] Care Team Providers Care Assembler Surgical Garment Name Role Phone Kera Maria MD Primary Care Provider [phone] Lev Smith PharmD Unavailable [phone] Encounter Details Date Type Department Care Team ([facility] Contact Info) Description 05/01/2023 Orders Only [facility] CHC MED & PEDS [address] [place], [place] [phone] Teresa Sotomayor MD [address] [place], [place] [phone] Social History Tobacco Use Types Packs/Day Years [...] Description 08/06/2025 10:30 AM EST Medication Management [facility] 230 [place], [place] [phone] Lev Smith, PharmD [address] [place] [address] documented as of this encounter Procedures Procedure [...] PM EDT Narrative 05/13/2023 7:18 PM EDT [place] [address] [address] Scan Report Signed Patient: Sofía Penny MR#: [id number] : 1950 Acct:[id number] Age/Sex: 72 / F ADM Date: 05/13/23 Loc: HO.ED Attending Dr: Ordering Physician: Tammi Andrew Date of Service: 05/13/23 Procedure(s): CT cervical spine wo IV con Accession Number(s): [id number] cc: Tammi Andrew; Kera Maria MD EXAMINATION: [...] MD in OV> 05/13/231914 DD/ 06 TD/TT: Traveling Representative: ELMO Procedure Note Donotuseinterpreter, Image - 05/13/[address] [address] [address] Scan Report Signed Patient: Kaylee Penny#: [id number] : 1950cct:[id number] Age/Sex: 72 / FADM Date: 05/13/23 Loc: HO.ED Attending Dr: Ordering Physician: Tammi Andrew Date of Service: 05/13/23 Procedure(s): CT cervical spine wo IV con Accession Number(s): [id number] cc: Tammi Andrew; Kera Maria MD EXAMINATION: [...] MD in OV> 05/13/231914 DD/ 06 TD/TT: Traveling Representative: ELMO us [facility] External Provider IMG MRI PROCEDURES Edited Result - Final * MR Pelvis w/o Contrast (05/13/2023 6:07 PM EDT) Anatomical Region Laterality Modality Body, Pelvis Magnetic Resonan ce 05/13/2023 6:07 PM EDT Narrative 05/13/2023 7:01 PM EDT [address] [address] [address] Scan Report Signed Patient: Sofía Penny MR#: [id number] : 1950 Acct:[id number] Age/Sex: 72 / F ADM Date: 05/13/23 Loc: HO.ED Attending Dr: Ordering Physician: Tammi Andrew Date of Service: 05/13/23 Procedure(s): CT pelvis wo IV con Accession Number(s): [id number] cc: Tammi Andrew; Kera Maria MD EXAMINATION: [...] in OV> 05/13/23 1858 DD/ 1807 TD/TT: Traveling Representative: SS Procedure Note Donotuseinterpreter, Image - 05/13/[address] [place] [address] [address] Scan Report Signed Patient: Kaylee Penny#: [id number] : [id number]:[id number] Age/Sex: 72 / FADM Date: 05/13/23 Loc: HO.ED Attending Dr: Ordering Physician: Tammi Andrew Date of Service: 05/13/23 Procedure(s): CT pelvis wo IV con Accession Number(s): [id number] cc: Tammi Andrew; Kera Maria MD EXAMINATION: [...] in OV> 05/13/23 1858 DD/ 1807 TD/TT: Traveling Representative: SS [facility] External Provider IMG MRI PROCEDURES Edited Result - Final * CT Head w/o Contrast (05/13/2023 6:07 PM EDT) Anatomical Region Laterality Modality Head, Neck Computed Tomogra phy 05/13/2023 6:07 PM EDT Narrative 05/13/2023 6:59 PM EDT [place] [address] CT Scan Report Signed Patient: Sofía Penny MR#: [id number] : 1950 Acct:[id number] Age/Sex: 72 / F ADM Date: 05/13/23 Loc: HO.ED Attending Dr: Ordering Physician: Tammi Andrew Date of Service: 05/13/23 Procedure(s): CT head/brain wo IV con Accession Number(s): [id number] cc: Tammi Andrew; Kera Maria MD EXAMINATION: [...] by Halley Noonan MD in OV> 05/13/23 7183 DD/ 06 TD/TT: Traveling Representative: ELMO Procedure Note Donotuseinterpreter, Image - 05/13/[address] [place] [address] [address] Scan Report Signed Patient: Kaylee Penny#: [id number] : [id number]:[id number] Age/Sex: 72 / FADM Date: 05/13/23 Loc: HO.ED Attending Dr: Ordering Physician: Tammi Andrew Date of Service: 05/13/23 Procedure(s): CT head/brain wo IV con Accession Number(s): [id number] cc: Tammi Andrew; Kera Maria MD EXAMINATION: [...] in OV> 05/13/23 1856 DD/ 1807 TD/TT: Traveling Representative: ELMO [facility] External Provider IMG CT PROCEDURES Edited Result - Final * XR Hip right with Pelvis 1 view (05/13/2023 3:58 PM EDT) Anatomical Region Laterality Modality Lower Extremities, Hip Bilateral Radiograp hic Imaging 05/13/2023 3:5 8 PM EDT Narrative 05/13/2023 5:03 PM EDT [place] [address] XRay Report Signed Patient: Sofía Penny MR#: [id number] : 1950 Acct:[id number] Age/Sex: 72 / F ADM Date: 05/13/23 Loc: HO.ED Attending Dr: Ordering Physician: Tammi Andrew Date of Service: 05/13/23 Procedure(s): XR hip RT w PEL1V Accession Number(s): [id number] cc: Tammi Andrew; Kera Maria MD EXAMINATION: [...] MD in OV> 05/13/231658 DD/ 57 TD/TT: Traveling Representative: Procedure Note Donotuseinterpreter, Image - 05/13/[address] [address] XRay Report Signed Patient: Kaylee Penny#: [id number] : 1950cct:[id number] Age/Sex: 72 / FADM Date: 05/13/23 Loc: HO.ED Attending Dr: Ordering Physician: Tammi Andrew Date of Service: 05/13/23 Procedure(s): XR hip RT w PEL1V Accession Number(s): [id number] cc: Tammi Andrew; Kera Maria MD EXAMINATION: [...] MD in OV> 05/13/231658 DD/ 57 TD/TT: Traveling Representative: [facility] External Provider IMG XR PROCEDURES Final Result documented in this encounter Visit Diagnoses Not on filedocumented in this encounter Care Teams Assembler Surgical Garment Relationship Specialty Start Date End Date Kera Maria MD [address] [place], [place] [phone] PCP - General Family Medicine 07/22/18 Lev Smith PharmD [address] [place] [address] Pharmacist Internal Medicine 11/12/24 documented as of this encounter
--- OUTSIDE RECORDS SUMMARY | 2025-07-07 21:01 | XMS_ITS | Encounter Summary ---
Author Organization [employer] Address [address] [facility] 7t [place] [address] Care Team Providers Care Animal Anatomy Teacher Name Role Phone Kera Maria MD Primary Care Provider [phone] Lev Smith PharmD Unavailable [phone] Reason for Visit * Reason Onset Date Comments Results 06/26/2023 Encounter Details Date Type Department Care Team ([facility] Contact Info) Description 06/26/2023 Telephone [facility] MEDICINE [address] [place], [place] [phone] Kera Maria MD 230 [place], [place] [phone] Results Social History Tobacco Use Types Packs/Day [...] xray to knee. Please contact pt at [phone] (procedures analyst needed) documented in this encounter Plan of Treatment Upcoming Encounters Date Type Department Care Team (Late st Contact Info) Description 08/06/2025 10:30 AM EST Medication Management [facility] MEDICINE [address] [place] [address] Lev Smith, PharmD [address] [place] [address] documented as of this encounter Visit Diagnoses Not on filedocumented in this encounter Care Teams Animal Anatomy Teacher Relationship Specialty Start Date End Date Kera Maria MD [address] [place] [address] PCP - General Family Medicine 07/22/18 Lev Smith, PharmD [address] [place] [address] Pharmacist Internal Medicine 11/12/24 documented as of this encounter
--- OUTSIDE RECORDS SUMMARY | 2025-07-07 21:01 | XMS_ITS | Encounter Summary ---
Author Organization [employer] Address [address] [place] [address] 7t [place] [address] Care Team Providers Care Certified Corporate Travel Executive Name Role Phone Kera Maria MD Primary Care Provider [phone] Lev Smith PharmD Unavailable [phone] Encounter Details Date Type Department Care Team (Late st Contact Info) Description 04/09/2023 Orders Only [facility] CHC MED & PEDS [address] [place], [place] [phone] Juhi Onofre LPN Social History Tobacco Use [...] Description 08/06/2025 10:30 AM EST Medication Management [facility] MEDICINE 230 [place] [address] Lev Smith, PharmD [address] [place] [address] documented as of this encounter Visit Diagnoses Not on filedocumented in this encounter Care Teams Certified Corporate Travel Executive Relationship Specialty Start Date End Date Kera Maria MD 230 [place] [address] PCP - General Family Medicine 07/22/18 Lev Smith PharmD [address] [place] [address] Pharmacist Internal Medicine 11/12/24 documented as of this encounter
--- OUTSIDE RECORDS SUMMARY | 2025-07-07 21:01 | XMS_ITS | Encounter Summary ---
Author Organization [employer] Address 75 [facility] 7t [place] [address] Care Team Providers Care Catalyst Plant Supervisor Name Role Phone Kera Maria MD Primary Care Provider [phone] Lev Smith PharmD Unavailable [phone] Reason for Visit * Reason Comments Med Refill Encounter Details Date Type Department Care Team ([facility] st Contact Info) Description 07/02/2025 Refill [facility] MEDICINE 230 [place], [place] [phone] Kera Maria MD [address] [place], [place] [phone] Social History Tobacco Use Types Packs/Day Years [...] Description 08/06/2025 10:30 AM EST Medication Management [facility] MEDICINE [address] [place] [address] Lev Smith, HermilaD [address] [place] [address] documented as of this encounter Goals Goal [...] documented as of this encounter Care Teams Catalyst Plant Supervisor Relationship Specialty Start Date End Date Kera Maria MD [address] [place] [address] PCP - General Family Medicine 07/22/18 Lev Smith, HermilaD [address] [place] [address] Pharmacist Internal Medicine 11/12/24 documented as of this encounter
--- OUTSIDE RECORDS SUMMARY | 2025-07-07 21:01 | XMS_ITS | Encounter Summary ---
Author Organization [employer] Address [address] [facility] 7t [place] [address] Care Team Providers Care Associate Software Development Engineer Name Role Phone Kera Maria MD Primary Care Provider [phone] Lev Smith PharmD Unavailable [phone] Reason for Visit * Reason Comments Med Refill Encounter Details Date Type Department Care Team ([facility] st Contact Info) Description 04/17/2024 Refill [facility] MEDICINE 230 [place], [place] [phone] Kera Maria MD 230 [place], [place] [phone] Social History Tobacco Use Types Packs/Day Years [...] Description 08/06/2025 10:30 AM EST Medication Management [facility] MEDICINE 230 [place] [address] Lev Smith, PharmD [address] [place] [address] documented as of this encounter Visit Diagnoses Not on filedocumented in this encounter Care Teams Associate Software Development Engineer Relationship Specialty Start Date End Date Kera Maria MD [address] [place] [address] PCP - General Family Medicine 07/22/18 Lev Smith, PharmD [address] [place] [address] Pharmacist Internal Medicine 11/12/24 documented as of this encounter
--- OUTSIDE RECORDS SUMMARY | 2025-07-07 21:01 | XMS_ITS | Encounter Summary ---
Author Organization [employer] Address [address] [place] [address] 7t [place] [address] Care Team Providers Care General Manager Food Name Role Phone Kera Maria MD Primary Care Provider [phone] Lev Smith PharmD Unavailable [phone] Encounter Details Date Type Department Care Team (Late st Contact Info) Description 05/22/2023 Orders Only [facility] CHC MED & PEDS 505 [place], [place] [phone] Juhi Onofre LPN Social History Tobacco Use [...] Description 08/06/2025 10:30 AM EST Medication Management [facility] MEDICINE 230 [place] [address] Lev Smith, PharmD [address] [place] [address] documented as of this encounter Visit Diagnoses Not on filedocumented in this encounter Care Teams General Manager Food Relationship Specialty Start Date End Date Kera Maria MD [address] [place] [address] PCP - General Family Medicine 07/22/18 Lev Smith, PharmD [address] [place] [address] Pharmacist Internal Medicine 11/12/24 documented as of this encounter
--- OUTSIDE RECORDS SUMMARY | 2025-07-07 21:01 | XMS_ITS | Encounter Summary ---
Author Organization [employer] Address [address] [place] [address] 7t [place] [address] Care Team Providers Care Cellophane Casting Machine Repairer Name Role Phone Kera Maria MD Primary Care Provider [phone] Lev Smith PharmD Unavailable [phone] Reason for Visit * Reason Onset Date Comments Appointment Request 05/10/2023 Encounter Details Date Type Department Care Team (Late st Contact Info) Description 05/10/2023 Telephone [facility] MEDICINE [address] [place] [address] [phone] Kera Maria MD [address] [place] [address] [phone] Appointment Request Social History Tobacco Use Types [...] appt with PCP, any question contact pt [phone]. documented in this encounter Plan of Treatment Upcoming Encounters Date Type Department Care Team (Late st Contact Info) Description 08/06/2025 10:30 AM EST Medication Management [facility] MEDICINE [address] [place] [address] Lev Smith, PharmD [address] [place] [address] documented as of this encounter Visit Diagnoses Not on filedocumented in this encounter Care Teams Cellophane Casting Machine Repairer Relationship Specialty Start Date End Date Kera Maria MD [address] [place] [address] PCP - General Family Medicine 07/22/18 Lev Smith, PharmD [address] [place] [address] Pharmacist Internal Medicine 11/12/24 documented as of this encounter
--- OUTSIDE RECORDS SUMMARY | 2025-07-07 21:01 | XMS_ITS | Encounter Summary ---
Author Organization [employer] Address 75 [facility] 7t [place] [address] Care Team Providers Care Mobile Device Developer Name Role Phone Kera Maria MD Primary Care Provider [phone] Lev Smith PharmD Unavailable [phone] Encounter Details Date Type Department Care Team (Late st Contact Info) Description 01/11/2025 Orders Only [facility] CHC MED & PEDS [address] [place], [place] [phone] ProviderChey MD Social History Tobacco Use Types [...] Description 08/06/2025 10:30 AM EST Medication Management [facility] MEDICINE 230 [place] [address] Lev Smith, Steven [address] [place] [address] documented as of this encounter Procedures Procedure Name Priority Date/Time Associated Diagnosis Comments DIABETES EYE EXAM Routine 01/06/2025 9:58 AM EDT documented in this encounter Results * Diabetes Eye Exam (01/06/2025 9:58 AM EDT) Historical Provider HEALTH MAINTENANCE Final Result documented in this encounter Visit Diagnoses Not on filedocumented in this encounter Care Teams Mobile Device Developer Relationship Specialty Start Date End Date Kera Maria MD [address] [place] [address] PCP - General Family Medicine 07/22/18 Lev Smith, HermilaD [address] [place] [address] Pharmacist Internal Medicine 11/12/24 documented as of this encounter
--- OUTSIDE RECORDS SUMMARY | 2025-07-07 21:01 | XMS_ITS | Encounter Summary ---
Author Organization [employer] Address 75 [facility] 7t [place] [address] Care Team Providers Care News Producer Name Role Phone Kera Maria MD Primary Care Provider Lev Smith PharmD Unavailable [phone] Reason for Referral * Imaging (Routine) - Closed Specialty Diagnoses / Procedures Referred By Contac t Referred To Contact Radiology Diagnoses Closed fracture of single pubic ramus of pelvis, right, initial encounter (CMS/[facility]) (HCC) Postmenopause Osteoporosis screening declined Procedures BD DEXA Axial Kera Maria MD [address] [place] [address] Phone: tel: fax: [address] [address] Phone: tel: fax: Referral ID Status Reason Start Date Expiration Date Visits Re quested Visits Authorized [id number] Closed 08/26/2023 08/25/2024 1 1 Encounter Details Date Type Department Care Team (Late st Contact Info) Description 08/26/2023 Orders Only [facility] MEDICINE [address] [place] [address] [phone] Kera Maria MD [address] [place] [phone] Closed fracture of single pubic ramus of pelvis, right, initial encounter (CMS/[facility]) (Primary Dx); Postmenopause; Osteoporosis screening declined Social [...] Management [facility] MEDICINE [address] [place] [address] Lev Smith, PharmD [address] [place] [address] documented as of this encounter Procedures Procedure Name Priority Date/Time Associated Diagnosis Comments BD DEXA AXIAL Routine 09/13/2023 9:20 AM EST Closed fracture of single pubic ramus of pelvis, right, initial encounter ([facility]) Postmenopause Osteoporosis screening declined documented in this encounter Results * BD DEXA Axial (09/13/2023 9:20 AM EST) Anatomical Region Laterality Modality Body Radiographic Collette ging 09/13/2023 9:20 AM EST Narrative 09/13/2023 5:44 PM EST [facility] [address] [place] [address] Mammography Report Signed Patient: Sofía Penny MR#: [id number] : 1950 Acct:[id number] Age/Sex: 73 / F ADM Date: 09/13/23 Loc: HO.MAMMO Attending Dr: Kera Maria MD Ordering Physician: Kera Maria MD Results: Date of Service: 09/13/23 Follow Up: Procedure(s): XR DEXA axial skeleton Accession Number(s): [id number] cc: Kera Maria MD EXAMINATION: BONE DENSITOMETRY CLINICAL INDICATION: Postmenopausal. COMPARISON: This is the patient's baseline examination. TECHNIQUE: Using a [employer] DXA System (software version: 13.1) manufactured by [employer], dual-energy x-ray absorptiometry was performed of the [...] in OV> 09/13/23 1740 DD/ 0920 TD/TT: Sql Ssis Developer: DOROTHEA Procedure Note Donotuseinterpreter, Image - 09/13/2023 [place] [facility] [address] [place], [place] [address] Mammography Report Signed Patient: Kaylee Penny#: [id number] : 1950cct:[id number] Age/Sex: 73 / FADM Date: 09/13/23 Loc: NICKIE Attending Dr: Kera Maria MD Ordering Physician: Kera Maria MDResults: Date of Service: 09/13/23Follow Up: Procedure(s): XR DEXA axial skeleton Accession Number(s): [id number] cc: Kera Maria MD EXAMINATION: BONE DENSITOMETRY CLINICAL INDICATION: Postmenopausal. COMPARISON: This is the patient's baseline examination. TECHNIQUE: Using a [employer] DXA System (software version: 13.1) manufactured by [employer], dual-energy x-ray absorptiometry was performed of the [...] in OV> 09/13/23 1740 DD/ 0920 TD/TT: Sql Ssis Developer: SK Kera Maria MD IMG DXA PROCEDURES Final Result documented in this encounter Visit Diagnoses Diagnosis Closed fracture of single pubic ramus of pelvis, right, initial encounter (CMS/HCC) (HCC)- Primary Postmenopause Asymptomatic postmenopausal status (age-related) (natural) Osteoporosis screening declined documented in this encounter Care Teams News Producer Relationship Specialty Start Date End Date Kera Maria MD [address] [place] [address] PCP - General Family Medicine 07/22/18 Lev Smith, HermilaD [address] [place] [address] Pharmacist Internal Medicine 11/12/24 documented as of this encounter
--- OUTSIDE RECORDS SUMMARY | 2025-07-07 21:01 | XMS_ITS | Encounter Summary ---
Author Organization [employer] Address [address] [facility] 7t [place] [address] Care Team Providers Care Digital Controls Technical Officer Name Role Phone Kera Maria MD Primary Care Provider [phone] Lev Smith PharmD Unavailable [phone] Encounter Details Date Type Department Care Team (Latest Contact Info) Description 07/07/2025 Travel Social History Tobacco Use Types Packs/Day [...] 10:30 AM EST Medication Management [facility] MEDICINE 230 [place] [address] Lev Smith, HermilaD [address] [place] [address] documented as of this encounter Goals Goal [...] chronic kidney disease No Germania Wilson [place] documented as of this encounter Visit [...] documented as of this encounter Care Teams Digital Controls Technical Officer Relationship Specialty Start Date End Date Kera Maria MD 230 [place] [address] PCP - General Family Medicine 07/22/18 Lev Smith, Steven [address] [place] [address] Pharmacist Internal Medicine 11/12/24 documented as of this encounter
== END 2025-07-07 16:33 | disposition home or self-care (01) ==
LOC: HO.HHCLNP 16:32
PROVIDERS: Visit Provider Emergency Medicine
DX: R39.9 Unspecified symptoms and signs involving the genitourinary system (principal)
CPT/HCPCS: 87086; 87088; 87186